=== PATIENT | female | born 1965 | race Caucasian/White ===

== ENCOUNTER 2020-01-30 14:36 | Outpatient (REF) | payer OTHER, SELFPAY ==
--- NOTE | 2020-01-30 15:15 | MR_ITS ---
EXAMINATION: MR ABDOMEN WITHOUT AND WITH CONTRAST CLINICAL INFORMATION: 1.2 cm enhancing lesion left hepatic lobe. Follow-up. COMPARISON: CT abdomen and pelvis without and with contrast 12/06/2017 TECHNIQUE: MR abdomen was performed without and with use of 5.5 mL intravenous Gadavist gadolinium contrast. Postcontrast images are performed in multiphase dynamic sequences. Imaging was performed in 3 planes. FINDINGS: LUNG BASES: The visualized lung bases are unremarkable. LIVER, GALLBLADDER, AND BILIARY TREE: The liver is normal in size and smooth in contour and normal in signal. There is no signal loss on out of phase imaging to suggest hepatic steatosis. There is a stable subcapsular lesion anterior left lobe near the intersegmental fissure measuring 1.1 cm in size. This is uniform high signal T2, low signal T1, and shows homogeneous enhancement on delayed postcontrast image suggesting a benign hemangioma. There is also a tiny cyst dome left lobe segment 2 under 1 cm. Both lesions are stable from CT 12/06/2017 consistent with benign lesions. There is no new hepatic parenchymal lesion. No intrahepatic ductal dilatation. The gallbladder is partially contracted. There is no visible stone or wall thickening. The common duct is unremarkable. PANCREAS: Normal in size and contour and signal. Pancreatic duct normal in caliber. No pancreatic parenchymal lesion or peripancreatic inflammatory changes. SPLEEN: Normal. ADRENAL GLANDS: Normal. KIDNEYS AND URETERS: The kidneys are normal in size, shape, and enhance symmetrically. No hydronephrosis. No perinephric stranding. GASTROINTESTINAL TRACT: No bowel obstruction. No ascites or fluid collection. ABDOMINAL WALL: No significant hernia is appreciated. LYMPH NODES: No lymphadenopathy. VASCULAR: Unremarkable. OSSEOUS STRUCTURES: Marrow signal normal. MR/MR abdomen wo/w con IMPRESSION: 1. Benign 1.1 cm subcapsular lesion anterior left hepatic lobe likely hemangioma and stable from CT abdomen 12/06/2017. Tiny cyst dome left lobe stable. 2. No biliary ductal dilatation. Unremarkable pancreas.
== END 2020-01-30 14:37 | disposition home or self-care (01) ==
LOC: HO.MRI 14:36
PROVIDERS: PCP Internal Medicine; Visit Provider Internal Medicine
DX: K76.9 Liver disease, unspecified (principal)
CPT/HCPCS: 74183; A9585

== ENCOUNTER 2020-02-08 16:33 | Outpatient (REF) | payer OTHER, SELFPAY ==
--- NOTE | 2020-02-08 | XR_ITS ---
EXAMINATION: XR FACIAL BONES CLINICAL INFORMATION: Contusion of other part of head. COMPARISON: None TECHNIQUE: 4 views of the facial bones were obtained. FINDINGS: No fracture of the facial bones is demonstrated. The paranasal sinuses are clear. XR/XR facial bones min 3V IMPRESSION: Unremarkable examination.
== END 2020-02-08 16:34 | disposition home or self-care (01) ==
LOC: HO.XRAY 16:33
PROVIDERS: Visit Provider Internal Medicine
DX: S00.83XA Contusion of other part of head, initial encounter (principal)
CPT/HCPCS: 70150

== ENCOUNTER 2020-09-12 09:59 | Outpatient (REF) | payer OTHER, SELFPAY ==
--- NOTE | ~2020-09-12 | US_ITS ---
EXAMINATION: ULTRASOUND PELVIS AND TRANSVAGINAL CLINICAL INFORMATION: Left lower quadrant pain. COMPARISON: Ultrasound pelvis 12/19/2019 TECHNIQUE: Transabdominal and transvaginal imaging of pelvis is performed. FINDINGS: The uterus is anteverted measuring 6.30 cm in length, 2.6 cm in AP and 3.2 cm in transverse dimension. Endometrial thickness is 0.37 cm. No focal lesion is seen. The right ovary measures 1.5 x 1.0 x 1.7 cm and volume 1.4 mL. It appears unremarkable. Previously right ovary measures 1.8 x 1.1 x 1.0 cm. The left ovary measures 1.5 x 1.0 x 1.4 cm and volume 1.0 cm. Previously it measured 2.1 x 2.2 x 1.4 cm. There are prominent vessels seen in the left adnexa. There is no free fluid in cul-de-sac. US/US pelvic and transvaginal IMPRESSION: Unremarkable uterus and ovaries except for prominent vessels in the left adnexa..
== END 2020-09-12 10:00 | disposition home or self-care (01) ==
LOC: HO.HMGCX 09:59
PROVIDERS: Visit Provider General Practice
DX: R10.32 Left lower quadrant pain (principal)
CPT/HCPCS: 76830; 76856

== ENCOUNTER 2020-10-13 15:30 | Outpatient (REF) | payer OTHER, SELFPAY ==
--- NOTE | ~2020-10-13 | XR_ITS ---
EXAMINATION: XR FOREARM, LEFT CLINICAL INFORMATION: Localized swelling, mass or lump. COMPARISON: None TECHNIQUE: AP and lateral views of the left forearm were obtained. FINDINGS: There is no visible acute fracture, dislocation or bony abnormality. There is a small lateral epicondylar enthesophyte. The soft tissues are normal. No joint effusion seen. XR/XR forearm LT 2V IMPRESSION: Suspect small lateral and coned-down enthesophytes. No acute fracture or dislocation seen. No soft tissue abnormality.
== END 2020-10-13 15:31 | disposition home or self-care (01) ==
LOC: HO.XRAY 15:30
PROVIDERS: PCP Internal Medicine; Visit Provider General Practice
DX: R22.32 Localized swelling, mass and lump, left upper limb (principal)
CPT/HCPCS: 73090

== ENCOUNTER 2020-10-17 15:17 | Outpatient (REF) | payer OTHER, SELFPAY ==
--- NOTE | ~2020-10-17 | US_ITS ---
EXAMINATION: ULTRASOUND EXTREMITY NONVASCULAR CLINICAL INFORMATION: Localized swelling, mass or lump left arm COMPARISON: Previous x-ray 10/13/2020 TECHNIQUE: Doppler color and grayscale evaluation of the soft tissues of the left forearm FINDINGS: There is a 0.9 x 0.9 x 0.4 cm complex cyst with thick echogenic wall just deep to the skin in the area of palpable abnormality. Avascular. Ultrasound appearance is nonspecific. Possible small abscess or there is history of trauma, liquefying hematoma should be considered. US/US extremity nonvascular IMPRESSION: 9 x 9 x 4 mm complex cyst seen in the left forearm in the area of palpable abnormality. Ultrasound appearance is nonspecific.
== END 2020-10-17 15:18 | disposition home or self-care (01) ==
LOC: HO.HMGCX 15:17
PROVIDERS: PCP Internal Medicine; Visit Provider General Practice
DX: R22.32 Localized swelling, mass and lump, left upper limb (principal)
CPT/HCPCS: 76882

== ENCOUNTER → 2020-11-10 13:04 | Outpatient (BNVA) | payer OTHER, SELFPAY | PROVIDERS: PCP Internal Medicine; Visit Provider Orthopaedic Surgery | DX: M79.89 Other specified soft tissue disorders (principal); M65.4 Radial styloid tenosynovitis [de Quervain] | CPT/HCPCS: 99202 ==

== ENCOUNTER 2020-12-05 08:32 | Outpatient (REF) | payer OTHER, SELFPAY | END 2020-12-05 08:33 | disposition home or self-care (01) | LOC: HO.LAB 08:32 | PROVIDERS: PCP Internal Medicine | DX: N30.10 Interstitial cystitis (chronic) without hematuria (principal) | CPT/HCPCS: 87086; 87147; 99212 ==

== ENCOUNTER 2020-12-15 10:30 | Outpatient (REF) | payer OTHER, SELFPAY ==
--- NOTE | ~2020-12-15 | XR_ITS ---
EXAMINATION: XR HAND, LEFT CLINICAL INFORMATION: Pain COMPARISON: None TECHNIQUE: PA, lateral, and oblique views of the left hand. FINDINGS: Visualized portions of the distal radius and ulna demonstrate no fracture. Carpal rows are well-maintained. No carpal, metacarpal or phalangeal fracture. Mild to moderate degenerative changes of the first carpal metacarpal joint. Minimal scattered degenerative changes of the IP joint. XR/XR hand LT min 3V IMPRESSION: Mild to moderate degenerative changes of the first carpal metacarpal joint.
== END 2020-12-15 10:31 | disposition home or self-care (01) ==
LOC: HO.HOSX 10:30
PROVIDERS: Visit Provider Orthopaedic Surgery
DX: M18.12 Unilateral primary osteoarthritis of first carpometacarpal joint, left hand (principal); M65.4 Radial styloid tenosynovitis [de Quervain]; M79.89 Other specified soft tissue disorders
CPT/HCPCS: 73130; 99212

== ENCOUNTER 2021-01-02 18:59 | Outpatient (REF) | payer OTHER, SELFPAY ==
--- NOTE | ~2021-01-02 | MR_ITS ---
EXAMINATION: MRI HAND LEFT WITHOUT CONTRAST CLINICAL INFORMATION: 55-year-old female with history of pain. Patient reports burning, pain, weakness in thumb area, and patient denies having had any surgery in the problem area. COMPARISON: Radiographs of the hand from 12/15/2020. TECHNIQUE: Noncontrast multiplanar, multisequence MR imaging examination of the left hand was performed on a high-field magnet. FINDINGS: The MRI examination of the left hand was performed at a large [id number] to include the wrist and hand within the [id number]. The muscles and tendons of the hand are normal. No evidence of flexor or extensor tendon tear or tenosynovitis. No soft tissue mass. No ganglion cyst or other soft tissue lesion is seen within the wrist. Alignment is normal at the wrist, metacarpophalangeal and interphalangeal joints. No evidence of bone erosion or periostitis. At the moderately degenerated first carpometacarpal joint, there is subarticular bone marrow edema, cystic change, osteophyte formation and small joint effusion. There is mild pericapsular soft tissue edema adjacent to the intact-appearing dorsal radioulnar ligament (image 6 of 14, series 3). A small ossicle is seen adjacent to this ligament. There is no evidence of acute fracture at the degenerated joint. The collateral ligament structures at the thumb metacarpophalangeal joint are grossly intact (images 24-26 of 28, series 6). Note that it is difficult to provide any detailed analysis of ligament structures the wrist on these images acquired at a large [id number]. Although there is thinning of the triangular fibrocartilage disc at the level of the ulnolunate articulation, no focal ligament tear is identified. The scapholunate and lunatotriquetral ligaments are grossly intact. The structures of the carpal tunnel are normal. No evidence of abnormal thickening or T2 hyperintensity of the median nerve. No carpal bone bruise, fracture or osteonecrosis. MR/MR hand LT wo con IMPRESSION: * Moderate osteoarthritis, small effusion and mild pericapsular edema of the first carpometacarpal joint. * No evidence of soft tissue mass in the hand or wrist. * No evidence of tendon tear or tenosynovitis in the hand or wrist.
== END 2021-01-02 19:00 | disposition home or self-care (01) ==
LOC: HO.MRI 18:59
PROVIDERS: Visit Provider Orthopaedic Surgery
DX: M18.12 Unilateral primary osteoarthritis of first carpometacarpal joint, left hand (principal); M79.645 Pain in left finger(s)
CPT/HCPCS: 73218

== ENCOUNTER 2021-01-05 17:12 | Outpatient (REF) | payer OTHER, SELFPAY ==
--- NOTE | ~2021-01-05 | XR_ITS ---
EXAMINATION: XR CHEST CLINICAL INFORMATION: Shortness of breath. COMPARISON: Most recent chest radiograph dated 05/21/2016. TECHNIQUE: 2 views of the chest were obtained. FINDINGS: The lungs are clear. The cardiomediastinal silhouette is normal in size. There is no pleural effusion or pneumothorax. No acute osseous abnormality. XR/XR chest 2V IMPRESSION: No acute cardiopulmonary findings.
[2021-01-05 17:27] LABS: MANUAL DIFF FLAG NO
[2021-01-05 18:05] LABS: Basophils Percent Auto 0.6 % (0-2); Eosinophils Absolute Auto 0.2 X10*3/uL (0.0-0.4); Eosinophils Percent Auto 2.1 % (0-4); Hematocrit 42.5 % (37-47); Hemoglobin 14.3 g/dl (12.0-16.0); Imm Gran Abs Auto 0.02 X10*3/uL (0.00-0.03); Imm Gran Pct Auto 0.3 % (0.0-0.4); Lymphocytes Absolute Auto 1.8 X10*3/uL (1.2-4.9); Mean Corpuscular HGB Conc 33.6 g/dl (31.0-35.0); Mean Corpuscular Hemoglobin 32.1 pg (27.0-33.0); Mean Corpuscular Volume 95.3 fL (80-98); Mean Platelet Volume 10.1 fL (9.4-12.3); Monocytes Absolute Auto 0.6 X10*3/uL (0.1-1.2); Monocytes Percent Auto 8.7 % (2-11); Neutrophils Absolute Auto 4.5 X10*3/uL (2.0-8.3); Neutrophils Percent Auto 63.3 % (45-73); Platelet Count 258 X10*3/uL (160-400); Red Blood Count 4.46 X10*6/uL (4.20-5.50); Red Cell Distribution Width 12.5 % (11.0-16.0); White Blood Count 7.2 X10*3/uL (4.8-10.8)
[2021-01-05 18:27] LABS: Anion Gap 14 (12-20); Blood Urea Nitrogen 14 mg/dL (9-16); Carbon Dioxide 29 mmol/L (22-29); Chloride 103 mmol/L (96-108); Estimated Glomerular Filt Rate > 60; Glucose Random 137 mg/dL (60-115); Potassium 4.3 mmol/L (3.3-5.1); Sodium 142 mmol/L (135-145)
[2021-01-05 18:34] LABS: D Dimer < 200 NG/ML
== END 2021-01-05 17:13 | disposition home or self-care (01) ==
LOC: HO.XRAY 17:12
PROVIDERS: PCP Internal Medicine; Visit Provider Internal Medicine
DX: R06.02 Shortness of breath (principal)
CPT/HCPCS: 36415; 71046; 80048; 85025; 85379

== ENCOUNTER 2021-01-09 08:43 | Outpatient (REF) | payer OTHER, SELFPAY ==
[2021-01-09 10:31] LABS: Glucose Fasting 88 mg/dL (60-99)
== END 2021-01-09 08:44 | disposition home or self-care (01) ==
LOC: HO.LAB 08:43
PROVIDERS: PCP Internal Medicine; Visit Provider Internal Medicine
DX: R06.02 Shortness of breath (principal)
CPT/HCPCS: 36415; 82947

== ENCOUNTER → 2021-01-27 08:33 | Outpatient (BNVA) | payer OTHER, SELFPAY | PROVIDERS: Visit Provider Orthopaedic Surgery | DX: M18.12 Unilateral primary osteoarthritis of first carpometacarpal joint, left hand (principal); M79.645 Pain in left finger(s) | CPT/HCPCS: 99212 ==

== ENCOUNTER → 2021-02-23 09:19 | Outpatient (BNVA) | payer OTHER, SELFPAY | PROVIDERS: PCP Internal Medicine; Referring Provider Internal Medicine; Visit Provider Surgery | DX: R22.9 Localized swelling, mass and lump, unspecified (principal) | CPT/HCPCS: Q3014 ==

== ENCOUNTER → 2021-03-03 12:00 | Outpatient (BNVA) | payer OTHER, SELFPAY | PROVIDERS: Visit Provider Orthopaedic Surgery | DX: M18.12 Unilateral primary osteoarthritis of first carpometacarpal joint, left hand (principal) | CPT/HCPCS: 99212 ==

== ENCOUNTER 2021-03-23 13:26 | Outpatient (REF) | payer OTHER, SELFPAY ==
--- NOTE | ~2021-03-23 | US_ITS ---
EXAMINATION: US PELVIS, LIMITED/FOLLOW UP CLINICAL INFORMATION: Question lump in perineum COMPARISON: 09/12/2020 TECHNIQUE: Targeted ultrasound of clinical area at the left outer edge of the labia majora FINDINGS: There is no solid or cystic abnormality demonstrated. No fluid collection or skin thickening. No focal lesion. US/US pelvic limited IMPRESSION: No focal lesion. No findings to suggest a Bartholin's gland cyst. MRI may be obtained as warranted clinically.
== END 2021-03-23 13:27 | disposition home or self-care (01) ==
LOC: HO.US 13:26
PROVIDERS: PCP Internal Medicine; Visit Provider Surgery
DX: M79.89 Other specified soft tissue disorders (principal)
CPT/HCPCS: 76857

== ENCOUNTER → 2021-03-30 15:47 | Outpatient (BNVA) | payer OTHER, SELFPAY | PROVIDERS: PCP Internal Medicine; Referring Provider Internal Medicine; Visit Provider Surgery | DX: R22.9 Localized swelling, mass and lump, unspecified (principal) | CPT/HCPCS: 99212 ==

== ENCOUNTER → 2021-04-07 08:39 | Outpatient (BNVA) | payer OTHER, SELFPAY | PROVIDERS: Visit Provider Orthopaedic Surgery | DX: M65.4 Radial styloid tenosynovitis [de Quervain] (principal); M18.12 Unilateral primary osteoarthritis of first carpometacarpal joint, left hand | CPT/HCPCS: 99212 ==

== ENCOUNTER 2021-04-27 05:59 | Day surgery (SDC) | payer OTHER, SELFPAY ==
--- NOTE | 2021-04-24 12:04 | HO.ANESPROP2 ---
Documented by User: Kenna William NP 04/24/21 12:05 HPI - Anesthesia Eval Consult details Narrative: 55yo F for Left Basal Joint Arthroplasty, Jorge Trapeziectomy, with Ligament Reconstruction and Tendon Interposition PMFSH Active Problems Active Problems: All Active Problems (Updated 03/30/21 @ 16:07 by Moise Conrad MD) Mass of soft tissue of left upper extremity (Acute) De Quervain's tenosynovitis, left (Acute) Arthritis of carpometacarpal (CMC) joint of left thumb (Acute) Pain of left thumb (Acute) Subcutaneous mass (Acute) Interstitial cystitis (Acute) Past Medical History Medical History (Updated 04/27/21 @ 06:51 by Ana Fuentes) Asthma Interstitial cystitis Subcutaneous mass Family History Family History Mother Colon cancer Father Bone cancer Lung cancer Brother Cancer of unknown origin Surgical History Surgical History History of colonoscopy (06/2016) History of cystoscopy History of ear surgery History of excision of mass (06/07/18) History of lumpectomy of right breast History of right breast biopsy History of tubal ligation Hx of elbow surgery Hx of rotator cuff surgery Social History Social History Patient Tobacco Use Status: Former Tobacco user Quit Date: 1991 Tobacco use type: Cigarette Advance Directives Date on File: 09/13/14 Current occupational status: disabled Current occupation: rt hand Meds Allergies Allergy/AdvReac Type Severity Reaction Status Date / Time Iodinated Contrast Media Allergy Severe (ULTRAVIST) Verified 04/27/21 06:21 [IV CONTRAST] TINGLING OF LIPS AND SWELLING LIPS AND EYES adhesive tape [ADHESIVE TAPE] Allergy Intermediate BLISTERS Verified 04/27/21 06:21 tamoxifen [TAMOXIFEN] Allergy Mild GI UPSET Verified 04/27/21 06:21 Sulfa (Sulfonamide Allergy Unknown UNKNOWN Verified 04/27/21 06:21 Antibiotics) [SULFA (SULFONAMIDE ANTIBIOTICS)] bee pollen [bee stings] Allergy Swelling Verified 04/27/21 06:21 Home Medications Medication Instructions Recorded Confirmed Last Taken Type zolpidem 5 mg tablet 5 mg PO BEDTIME PRN 11/10/20 03/30/21 Unknown History ibuprofen 800 mg tablet 800 mg PO TID 02/23/21 03/30/21 04/13/21 History Exam Exam Date and Time: April 24, 2021 1204 Pertinent Lab Results Pertinent Lab Results: Laboratory Tests 01/05/21 01/05/21 17:24 17:24 WBC 7.2 Hgb 14.3 Hct 42.5 Plt Count 258 Sodium 142 Potassium 4.3 Chloride 103 Carbon Dioxide 29 BUN 14 Creatinine 0.80 Assessment and Plan Assessment Anesthesia Assessment: Chart Reviewed Documented by User: Power Martel 04/27/21 12:13 HPI - Anesthesia Eval Consult details Narrative: 55yo F for Left Basal Joint Arthroplasty, Jorge Trapeziectomy, with Ligament Reconstruction and Tendon Interposition , palpitations , asthma , right breast CA sp chemo and radiations n 2011 , MS, flates weakness bl LE . PMFSH Past Medical History Medical History (Updated 04/27/21 @ 06:51 by Ana Fuentes) Asthma Interstitial cystitis Subcutaneous mass Family History Family History Mother Colon cancer Father Bone cancer Lung cancer Brother Cancer of unknown origin Family history of problems with anesthesia: No Surgical History Surgical History History of colonoscopy (06/2016) History of cystoscopy History of ear surgery History of excision of mass (06/07/18) History of lumpectomy of right breast History of right breast biopsy History of tubal ligation Hx of elbow surgery Hx of rotator cuff surgery History of Problems with Anesthesia: No Social History Social History Patient Tobacco Use Status: Former Tobacco user Quit Date: 1991 Tobacco use type: Cigarette Advance Directives Date on File: 09/13/14 Current occupational status: disabled Current occupation: rt hand Meds Allergies Allergy/AdvReac Type Severity Reaction Status Date / Time Iodinated Contrast Media Allergy Severe (ULTRAVIST) Verified 04/27/21 06:21 [IV CONTRAST] TINGLING OF LIPS AND SWELLING LIPS AND EYES adhesive tape [ADHESIVE TAPE] Allergy Intermediate BLISTERS Verified 04/27/21 06:21 tamoxifen [TAMOXIFEN] Allergy Mild GI UPSET Verified 04/27/21 06:21 Sulfa (Sulfonamide Allergy Unknown UNKNOWN Verified 04/27/21 06:21 Antibiotics) [SULFA (SULFONAMIDE ANTIBIOTICS)] bee pollen [bee stings] Allergy Swelling Verified 04/27/21 06:21 Home Medications Medication Instructions Recorded Confirmed Last Taken Type zolpidem 5 mg tablet 5 mg PO BEDTIME PRN 11/10/20 03/30/21 Unknown History ibuprofen 800 mg tablet 800 mg PO TID 02/23/21 03/30/21 04/13/21 History Exam Airway Mallampati Class: II TM Dist: >3cm Neck ROM: Full Partial: Upper Loose/Missing/Broken Teeth: Yes Heart: rrr Lungs: bl breath sounds Assessment and Plan Final Anesthetic Review Family History of Problems with Anesthesia: No History of Problems with Anesthesia: No NPO: Yes ASA Class: III Final Preanesthetic Review: Meds/Allgs Chart Reviewed and Anes Risks/Benef Reviewed Patient Risk: Intermediate Procedure Risk: Intermediate Anesthetic Plan Anesthetic Plan: GA Disposition: Standard PACU
[2021-04-27] VITALS (12 sets, daily range): BP systolic 116–136; BP diastolic 49–76; PULSE 73–109; RESP 15–18; TEMP 36.4–36.9; O2SAT 95–100; BMI 24.2
--- NOTE | ~2021-04-27 | FL_ITS ---
EXAMINATION: XR FLUOROSCOPY WITH IMAGES CLINICAL INFORMATION: Left basal joint arthroplasty. COMPARISON: None. TECHNIQUE: Fluoroscopy performed by Dr. Prosper Alvarenga. Fluoroscopy time: 10.3 seconds DAP: 5508.2 mGycm2 Images: 2 FINDINGS: There is partial amputation of proximal first metatarsal with 2 pins stabilizing the first carpometacarpal joint. Fluoroscopy was provided to Dr. Prosper Alvarenga during the exam FL/FL guidance in OR IMPRESSION: First carpometacarpal joint arthroplasty with 2 pins stabilizing the joint.
[2021-04-27] MEDS: Lactated Ringers 1,000 ML 100 ML IVCONT (07:44)
--- NOTE | 2021-04-27 08:05 | MHC.SHP ---
Pre-Procedural Eval Section A Date of Service: 04/27/21 The patient is an INPATIENT: No Changes since office visit: No Cold of Flu in the past 2 weeks, No New Medical Problems, No Changes in Medication and No Patient answered all questions The History & Physical has been completed within 30 days and I have reviewed it.: Yes Section B Chief Complaint: Osteoarthritis Allergies: Allergies Allergy/AdvReac Type Severity Reaction Status Date / Time Iodinated Contrast Media Allergy Severe (ULTRAVIST) Verified 04/27/21 06:21 [IV CONTRAST] TINGLING OF LIPS AND SWELLING LIPS AND EYES adhesive tape [ADHESIVE TAPE] Allergy Intermediate BLISTERS Verified 04/27/21 06:21 tamoxifen [TAMOXIFEN] Allergy Mild GI UPSET Verified 04/27/21 06:21 Sulfa (Sulfonamide Allergy Unknown UNKNOWN Verified 04/27/21 06:21 Antibiotics) [SULFA (SULFONAMIDE ANTIBIOTICS)] bee pollen [bee stings] Allergy Swelling Verified 04/27/21 06:21 Plan I have reviewed the history and physical and performed a pertinent physical examination on my patient. No changes have occurred unless specified.
--- NOTE | 2021-04-27 08:06 | W.PM.OPN ---
Operative Note Operative Note Date of Service: 04/27/21 Narrative: Operative Note Narrative: Preop diagnosis: 1. Left basal joint osteoarthritis Postop diagnosis: Same Procedure: 1. left basal joint arthroplasty with reji trapezii ectomy and ligament reconstruction tendon interposition with a slip of APL tendon Surgeon: Colette Cheng MD Anesthesia: General plus regional block Findings: left basal joint osteoarthritis Implants: 0.045 K-wires x2 Tourniquet time: 65 minutes EBL: 5.0 ml Specimen: None Drains: None Complications: None Disposition: Brought to the recovery room in stable condition Plan: Follow-up in 10-14 days for wound check, suture removal and to postop radiographs Place into a short-arm thumb spica cast. Anticipate K-wire removal at 4-5 weeks postop with same-day appointment for OT hand therapy for a custom thermoplastic hand based thumb spica splint and hand therapy Indications: The patient is 55 years old with left basal joint osteoarthritis. The risks and benefits of operative treatment, including but not limited to risk of damage to blood vessels, nerves, tendons, infection, recurrence, persistent pain or numbness, incomplete resolution of preoperative symptoms, or need for further surgery were discussed with the patient and they wished to proceed with surgery. Procedure: Once consent was obtained patient was brought back to the operating suite and placed in the operating table in a supine position. . Perioperative antibiotics and anesthesia were administered by the anesthesia team. A tourniquet was applied to the proximal aspect of the left upper extremity and the limb was prepped and draped in a standard surgical fashion. The limb was elevated exsanguinated with Esmarch bandage and the tourniquet inflated to 250 mm of mercury for a total tourniquet time of 65 minutes. A 4 cm longitudinal incision was made over the dorsal aspect of the basal joint of the left thumb extending proximally over the 1st dorsal compartment. The incision was made through the skin to the subcutaneous tissues using a 15. Blade. I dissected down to the level of the abductor pollicis longus and extensor problems this brevis tendons with care being taken to protect the branches of the superficial radial nerve. The basal joint was entered through the interval between the APL and EPB tendons, and the base of the 1st metacarpal and the distal aspect of the trapezium were exposed. Two baby Shy retractors were placed around the base of the 1st metacarpal and a bone saw was used to make a transverse cut through the base of the 1st metacarpal removing sliver of bone. The distal aspect of the trapezium was then similarly mobilized, 2 baby Shy retractors placed, and the distal half of the trapezium removed after a transverse cut was made using a small bone saw and a rongeur. The FCR tendon was seen passing through the floor of the interval. At this point my attention was turned to the 1st dorsal compartment. It was exposed over the radial styloid. A slip of the abductor pollicis longus tendon was selected and cut proximally and withdrawn back to the interval and its attachment at the base of the 1st metacarpal. It was then secured to the base of the interval and the FCR tendon using some 3-0 Ethibond suture. An anchovy was then created from the remaining slip of APL tendon and placed into the interval. It was secured using 3-0 Ethibond suture material. Two 0.045 K-wires were then placed from distal to proximal across the interval maintaining the space in the interval. Once satisfied with their position on fluoroscopic images they were cut, bent and had pin caps applied. At this point the wound was again irrigated with normal saline. The interval was closed using 3-0 Ethibond and 4-0 Vicryl suture. The tourniquet was then deflated and hemostasis obtained with a brief period of local pressure and bipolar electrocautery. The wound was again copiously irrigated with normal saline. The subcutaneous layer was closed with 4-0 Vicryl suture, and the skin edges were reapproximated with 5-0 Prolene suture. The wound was infiltrated with some 1% lidocaine with epinephrine for postop pain control and a sterile dressing and thumb spica splint were applied. The patient appears to have tolerated the procedure well and with no complications. All digits were well vascularized at the conclusion of the case.
[2021-04-27] MEDS: Acetaminophen 325 MG TABLET 650 MG PO (10:29)
[2021-04-27] MEDS: oxyCODONE HCl Immed Release 5 MG TABLET PO (10:29)
[2021-04-27] MEDS: fentaNYL citrate/PF 100 MCG/2 ML VIAL 25 MCG IVPUSH ×4 (10:29→10:49)
== END 2021-04-27 11:40 | disposition home or self-care (01) ==
PROVIDERS: PCP Internal Medicine; Visit Provider Orthopaedic Surgery
PROC: (CPT 25447; principal; 2021-04-27 07:30)
DX: M18.12 Unilateral primary osteoarthritis of first carpometacarpal joint, left hand (principal); M65.4 Radial styloid tenosynovitis [de Quervain]; J45.909 Unspecified asthma, uncomplicated; Z87.891 Personal history of nicotine dependence; Z91.041 Radiographic dye allergy status; Z88.2 Allergy status to sulfonamides; Z88.8 Allergy status to other drugs, medicaments and biological substances
CPT/HCPCS: 25447; J0690; J1100; J2250; J2405; J3010

== ENCOUNTER → 2021-04-30 13:06 | Outpatient (BNVA) | payer OTHER, SELFPAY | PROVIDERS: PCP Internal Medicine; Visit Provider Physician Assistant | DX: Z47.89 Encounter for other orthopedic aftercare (principal); M79.645 Pain in left finger(s); M65.4 Radial styloid tenosynovitis [de Quervain] | CPT/HCPCS: 99212 ==

== ENCOUNTER 2021-05-12 08:52 | Outpatient (REF) | payer OTHER, SELFPAY ==
--- NOTE | ~2021-05-12 | XR_ITS ---
EXAMINATION: XR HAND, LEFT CLINICAL INFORMATION: Left hand pain. COMPARISON: 12/15/2020 TECHNIQUE: PA, lateral, and oblique views of the left hand. FINDINGS: Postsurgical changes of 1st CMC arthroplasty and K wire fixation are noted. Soft tissues are swollen in this region. No acute fractures. Alignment appears appropriate. Bone mineralization is normal. XR/XR hand LT min 3V IMPRESSION: Appropriate alignment status post 1st CMC arthroplasty. No acute findings.
== END 2021-05-12 08:53 | disposition home or self-care (01) ==
LOC: HO.HOSX 08:52
PROVIDERS: Visit Provider Orthopaedic Surgery
DX: M18.12 Unilateral primary osteoarthritis of first carpometacarpal joint, left hand (principal)
CPT/HCPCS: 73130; 99212

== ENCOUNTER → 2021-05-13 14:12 | Outpatient (BNVA) | payer OTHER, SELFPAY | PROVIDERS: Visit Provider Orthopaedic Surgery | DX: M18.12 Unilateral primary osteoarthritis of first carpometacarpal joint, left hand (principal) | CPT/HCPCS: 99212 ==

== ENCOUNTER → 2021-05-26 12:07 | Outpatient (BNVA) | payer OTHER, SELFPAY | PROVIDERS: PCP Internal Medicine; Visit Provider Orthopaedic Surgery | DX: Z45.89 Encounter for adjustment and management of other implanted devices (principal); M18.12 Unilateral primary osteoarthritis of first carpometacarpal joint, left hand; Z96.692 Finger-joint replacement of left hand | CPT/HCPCS: 99212 ==

== ENCOUNTER → 2021-07-15 14:25 | Outpatient (BNVA) | payer OTHER, SELFPAY | PROVIDERS: PCP Internal Medicine; Visit Provider Orthopaedic Surgery | DX: Z47.89 Encounter for other orthopedic aftercare (principal); G56.02 Carpal tunnel syndrome, left upper limb | CPT/HCPCS: 99212 ==

== ENCOUNTER 2021-08-12 15:00 | Outpatient (RCR) | payer OTHER, SELFPAY ==
--- NOTE | 2021-05-26 16:21 | MHC.OT.OEV ---
[address] [phone] F: [phone] Occupational Therapy Evaluation Diagnosis: Left Basal joint Arthroplasty Date of Onset: 04/27/21 Date of Surgery: 04/27/21 Attending Provider: Colette Cheng MD Prescribed Treatment: Eval . Hand based thumb spica Follow Up Appointment: History of Current Condition: Pt reports left thumb trauma years ago with pain not improved with conservative treatment 04/27/21 under went LRTI , XR 05/12/21 showed appropriate alignment . Today pins pulled and pt in forearm based thumb spica secured with coban Significant Medical History: Adhesive tape allergy Right breast lumpectomy and 10 LN biopsy 2011.. radiation , chemo Right RTC repair OA hands, feet, back, right hip MS dx 2009 Precautions/Contraindications: No thumb op beyond index No heavy pinching or gripping against thumb until 3 mo po Allergy to adhesive tape Patient Goals: Use of left hand Hand Dominance: Mixed Observations: Wearing a forearm based thumb spica cast , open on dorsal aspect. QuickDASH Score: 81 pts Prior Level of Function and Occupation Self Care, Employment, Leisure: Mild to mod difficulty with daily activities due to sx with MS and side effects from chemotherapy Sleep meds since chemo Drives to visit with family Dances in house Walks Living Situation, Family and/or Social Support: Lives alone. Has a small dog Family close by , busy with work and children. One friend she can call Current Level of Function and Occupation Self Care, Employment, Leisure: As above and daily pain in the cast On disability for greater than 10 years due to multiple medical issues Sleep: Inc difficulty falling asleep Driving: Unable at this time Vision: Wears glasses Balance: Pain Assessment Pain Score: 8 Pain Scale Used: Numeric (0 - 10) Pain Location and Description: 8/10 left radial hand and wrist > ulnar syloid Aggravating Factors: Cast pressure. Left hand and wrist motion Alleviating Factors: Skin and Soft Tissue Assessment Skin and Soft Tissue: Swelling Comments: Left thumb pin sites covered, radial distal forearm scar Left forearm ms atrophy Wrist and digits stiff Nerve assessment Ulnar Nerve: Not Tested Median Nerve: Not Tested Radial Nerve: Not Tested Comments: Sensory Assessment Temperature: Light Touch: WFL Proprioception: Vibration: Comments: Edema Assessment Upper Extremity: Lower Extremity: Comments: Mild left hand edema Dexterity Assessment Dexterity: Left Impaired Comments: Deferred testing. Special Tests Comments: AROM(PROM) Strength Cervical Cervical Flexion: Cervical Extension: Cervical Lateral Flexion: Cervical Rotation: Comments: Shoulder Flexion: Extension: Abduction: Internal Rotation: External Rotation: Comments: Flexion: Extension: Abduction: Internal Rotation: External Rotation: Comments: Elbow Flexion: Extension: Pronation: 80 deg Supination: neutral Comments: Flexion: Extension: Pronation: Supination: Comments: NT Wrist Flexion: neutral Extension: 10 Ulnar Deviation: neutral Radial Deviation: neutral Comments: Flexion: Extension: Ulnar Deviation: Radial Deviation: Comments: NT Thumb Thumb CMC Flexion: Thumb MCP Flexion: Thumb IP Flexion: Radial Abduction: Palmar Abduction: 30 deg [place] ([place] 0-10): 0 Comments: Digits Index MCP: PIP: DIP: Long MCP: PIP: DIP: Ring MCP: PIP: DIP: Small MCP: PIP: DIP: Comments: Digits stiff. 2.5 cm to palm. Gross Grasp: Lateral Pinch: Two-Point Pinch: Three-Jaw Celestine: Comments: Deferred Patient Education Primary Language: Honduran Physical Fitness Trainer Required: No Current Knowledge: Minimal, needs reinforcement Teaching Method: Demonstration Verbal Education Needs Identified on Evaluation: ADL's Disease Information Exercise How did patient/family demonstrate learning? Patient demonstrates Patient verbalizes Barriers to Learning: Other Readiness for Learning: Accepting Who was educated? Patient Comments: Pt using medical transportation Plan of Care Assessment: Pt is 4 wks s/p left basal jt arthroplasty due to pain not improved with conservative treatment Pt presents with a very stiff wrist hand digits after having her pins pulled jt prior to this appointment Pt is previously with limitations and disability due to a complicated medical history. She lives alone with some assist from family and from medical transportation service She will benefit from OT to progress ROM, strengthening and functional use of her non dominant left hand per LRTI guidelines STG Duration: 4 wks Short Term Goals: Demo indep with scar management Demo indep with wrist and hand ROM Demo knowledge of jt repair precautions with ther ex and light activities Functional dexterity test in less than 40 seconds Light ADL with left hand use of orthosis LTG Duration: 8 wls [facility] Goals: Painfree left wrist and hand AROM Thumb abd to 45 deg Functional dexterity test in less than 30 sec Tolerate partial wt bearing on left hand Left drop forger helper to >15 lb Left pinch with ADL Quick DASH < 20 pts Indep with HEP, exercise progression and splint weaning. Frequency and Duration: The patient will be seen 2x wk x 8 wks Treatment Plan: Therapeutic Exercise Therapeutic Activity Home Exercise Program Splinting Patient Education ADL Training Paraffin Fluidotherapy MHP Soft Tissue Mobilization Electronically Signed By: Rachel Clark OT CHT CLT Reviewed/agree with student documentation: N/A Therapist: Please sign and return to therapist, Thank you for your referral.
--- NOTE | 2021-07-13 16:07 | MHC.OT.OR ---
Occupational Therapy Outpt Reeval Start: 05/26/21 13:20 Freq: Status: Active Protocol: Activity Type Activity Date Activity User E-Sign Co-Sign Detail Recorded Client Recorded Date Recorded By Document 07/13/21 16:04 ALEX [id number] 07/13/21 16:06 ALEX 07/13/21 16:04 Outpatient Occupational Therapy Re- evaluation [Treatment History] -Attending Provider Colette Cheng MD -Diagnosis Left Basal joint Arthroplasty -Date of Surgery 04/27/21 -Evaluation Date 05/26/21 -Treatments to Date 11 -Cancellations to Date 0 [Subjective] -Subjective I have a squishy ball I' m using but it doesn't help Sometimes it feels hot I'm using it for everything and it just feels stuck. My fingers don't even feel right . Everything feels slimy Not getting pins and needles at night. sometimes during the day, it depends -Pain Scale(0-10) 5 -Pain Location L radial hand and wrist [Objective] -Tests and Measures Wrist ext 50 deg, flexion 55 deg Thumb radial abd 0/0 (15) deg, joseph abd 0/15 deg. MP 0/5 deg, IP 0/ 30 deg Index PIP 0/95 deg, DIP 0/50 deg [Assessment] -Status Not Progressing -Assessment Pt is 10 wks post op right hemitrapeziecto my and APL LRTT . One wk lapse in treatment due to an unrelated medical issue No significant change in active thumb radial abd and con't limited joseph abd. Tendency to adduct 1st MC with IP jt extension. Continued slow improving digit 2-5 flexion to DPC. Pt reports trying to use her hand with light ADL but her fingers aren't cooperating. She reports a good improvement in hand CTS sx with intermittant use of a wrist gutter splint. Her hand color, edema ,skin texture are significantly improved and improving exercise and activity tolerance over the past few weeks. Pt is motivated and active with her HEP ( pt modified ) and is anxious to improve her thumb abduction . [Plan of Care] -Short Term Goals Demo indep with scar management MET Demo indep with wrist and hand ROM MET Demo knowledge of jt repair precautions with ther ex and light activities MET Functional dexterity test in less than 40 seconds Light ADL with left hand use of orthosis MET -Detention Goals Painfree left wrist and hand AROM Thumb abd to 45 deg Functional dexterity test in less than 30 sec Tolerate partial wt bearing on left hand Left archivist nonprofit foundation to > 15 lb Left pinch with ADL Quick DASH < 20 pts Indep with HEP, exercise progression and splint weaning . -Frequency and Duration of Visits 2x wk x 4 wks -Treatment Plan Therapeutic Exercise, Therapeutic Activity,Home Exercise Program, Splinting, Patient Education,ADL Training, Paraffin, Fluidotherapy, MHP,Soft Tissue Mobilization -Electronically signed by: Rachel Clark OT CHT CLT -Reviewed/agreed with student N/A documentation
--- NOTE | 2021-08-12 16:37 | MHC.OT.DC ---
[address] [phone] F: [phone] Occupational Therapy Discharge Note Provider: Colette Cheng MD Diagnosis: Left Basal joint Arthroplasty Date of Surgery: 04/27/21 Date of Evaluation: 05/26/21 Date of Discharge: 08/12/21 Treatments to Date: 17 Cancellations to Date: 0 No Shows to Date: 2 Discharge Status: Recommend MD Follow-up Discharge Summary: Pt not improving in complaint of left thumb pain ,thumb radial or joseph abd. There is a slight inc in joseph abd with NMES vs AROM or place and hold. Pt is with very limited use of her left hand . Light dexterity only. She is moderately functional with Functional Dexterity Test and reports being independent with some modifications in all areas, included wearing her CMC orthosis with homemaking and driving.. She has been unable to progress gentle strengthening or functional activities due to a complaint of inc pain and inc in anxiety She is scheduled for a CTR with Dr. Cheng tomorrow Recommending pt follow up with Dr. Cheng. Electronically Signed By: Rachel Clark OT CHT CLT Reviewed/agree with student documentation: N/A Therapist: Please Sign and return to therapist, thank you for your referral.
== END 2021-08-12 16:37 | disposition home or self-care (01) ==
LOC: HO.OT 15:00
PROVIDERS: PCP Internal Medicine; Visit Provider Orthopaedic Surgery
DX: M18.12 Unilateral primary osteoarthritis of first carpometacarpal joint, left hand (principal)
CPT/HCPCS: 29125; 29130; 97014; 97033; 97110; 97140; 97166; 97530; 97760

== ENCOUNTER 2021-08-13 06:01 | Day surgery (SDC) | payer OTHER, SELFPAY ==
[2021-08-06 19:12] VITALS: BMI 23.8
--- NOTE | 2021-08-12 08:43 | HO.ANESPROP2 ---
Documented by User: Kenna William NP 08/12/21 08:45 HPI - Anesthesia Eval Consult details Narrative: 56yo F for Left Carpal Tunnel Release s/p Left basal joint arthroplasty 04/2021 with GA-LMA 3 MS - no rx listed PMFSH Active Problems Active Problems: All Active Problems (Updated 08/06/21 @ 19:10 by Ghada Echevarria RN) Mass of soft tissue of left upper extremity (Acute) De Quervain's tenosynovitis, left (Acute) Arthritis of carpometacarpal (CMC) joint of left thumb (Acute) Pain of left thumb (Acute) Carpal tunnel syndrome of left wrist (Acute) Subcutaneous mass (Acute) Interstitial cystitis (Acute) Past Medical History Medical History (Updated 08/06/21 @ 19:10 by Ghada Echevarria RN) Asthma Dyspnea on exertion History of right breast cancer Hypothyroid Interstitial cystitis Multiple sclerosis Palpitations Seizure Subcutaneous mass Family History Family History Mother Colon cancer Father Bone cancer Lung cancer Brother Cancer of unknown origin Family history of problems with anesthesia: No Surgical History Surgical History History of colonoscopy (06/2016) History of cystoscopy History of ear surgery History of excision of mass (06/07/18) History of lumpectomy of right breast History of right breast biopsy History of tubal ligation Hx of elbow surgery Hx of rotator cuff surgery History of Problems with Anesthesia: No Social History Social History Patient Tobacco Use Status: Former Tobacco user Quit Date: 1991 Tobacco use type: Cigarette Use of substances other than those prescribed or required for medical reasons: No Are you DNR?: No Advance Directives: No Advance Directives Information Provided: No Advance Directives on File: No Advance Directives Date on File: 09/13/14 Recently lost weight without trying: No Nutrition Risks: No Nutritional Risk Patient : No Current occupational status: disabled Current occupation: rt hand Meds Allergies Allergy/AdvReac Type Severity Reaction Status Date / Time Iodinated Contrast Media Allergy Severe (ULTRAVIST) Verified 05/12/21 09:05 [IV CONTRAST] TINGLING OF LIPS AND SWELLING LIPS AND EYES adhesive tape [ADHESIVE TAPE] Allergy Intermediate BLISTERS Verified 05/12/21 09:05 tamoxifen [TAMOXIFEN] Allergy Mild GI UPSET Verified 05/12/21 09:05 Sulfa (Sulfonamide Allergy Unknown UNKNOWN Verified 05/12/21 09:05 Antibiotics) [SULFA (SULFONAMIDE ANTIBIOTICS)] bee pollen [bee stings] Allergy Swelling Verified 05/12/21 09:05 Home Medications Medication Instructions Recorded Confirmed Last Taken Type zolpidem 5 mg tablet 5 mg PO BEDTIME PRN 11/10/20 08/06/21 Unknown History Exam Exam Date and Time: August 12, 2021 0843 Height,Weight and Vital Signs: Height 4 ft 11 in Weight 53.524 kg Pertinent Lab Results Pertinent Lab Results: Laboratory Tests 01/05/21 01/05/21 17:24 17:24 WBC 7.2 Hgb 14.3 Hct 42.5 Plt Count 258 Sodium 142 Potassium 4.3 Chloride 103 Carbon Dioxide 29 BUN 14 Creatinine 0.80 Assessment and Plan Assessment Anesthesia Assessment: Chart Reviewed Final Anesthetic Review Family History of Problems with Anesthesia: No History of Problems with Anesthesia: No Documented by User: Anthony Alfaro MD 08/13/21 07:13 [facility] Past Medical History Medical History (Updated 08/06/21 @ 19:10 by Ghada Echevarria RN) Asthma Dyspnea on exertion History of right breast cancer Hypothyroid Interstitial cystitis Multiple sclerosis Palpitations Seizure Subcutaneous mass Family History Family History Mother Colon cancer Father Bone cancer Lung cancer Brother Cancer of unknown origin Surgical History Surgical History History of colonoscopy (06/2016) History of cystoscopy History of ear surgery History of excision of mass (06/07/18) History of lumpectomy of right breast History of right breast biopsy History of tubal ligation Hx of elbow surgery Hx of rotator cuff surgery Social History Social History Patient Tobacco Use Status: Former Tobacco user Quit Date: 1991 Tobacco use type: Cigarette Use of substances other than those prescribed or required for medical reasons: No Are you DNR?: No Advance Directives: No Advance Directives Information Provided: No Advance Directives on File: No Advance Directives Date on File: 09/13/14 Recently lost weight without trying: No Nutrition Risks: No Nutritional Risk Patient : No Current occupational status: disabled Current occupation: rt hand Meds Allergies Allergy/AdvReac Type Severity Reaction Status Date / Time Iodinated Contrast Media Allergy Severe (ULTRAVIST) Verified 05/12/21 09:05 [IV CONTRAST] TINGLING OF LIPS AND SWELLING LIPS AND EYES adhesive tape [ADHESIVE TAPE] Allergy Intermediate BLISTERS Verified 05/12/21 09:05 tamoxifen [TAMOXIFEN] Allergy Mild GI UPSET Verified 05/12/21 09:05 Sulfa (Sulfonamide Allergy Unknown UNKNOWN Verified 05/12/21 09:05 Antibiotics) [SULFA (SULFONAMIDE ANTIBIOTICS)] bee pollen [bee stings] Allergy Swelling Verified 05/12/21 09:05 Home Medications Medication Instructions Recorded Confirmed Last Taken Type zolpidem 5 mg tablet 5 mg PO BEDTIME PRN 11/10/20 08/06/21 Unknown History Exam Airway Mallampati Class: II TM Dist: >3cm Partial: Upper Assessment and Plan Assessment Anesthesia Assessment: Anesthesia Plan Discussed Final Anesthetic Review NPO: Yes ASA Class: II Final Preanesthetic Review: No Changes in Pt Med Stat, Meds/Allgs Chart Reviewed, Consent Obtained/Reviewed and Anes Risks/Benef Reviewed Patient Risk: Low Procedure Risk: Low Anesthetic Plan Anesthetic Plan: GA Disposition: Standard PACU
[2021-08-13] VITALS (7 sets, daily range): BP systolic 125–155; BP diastolic 74–93; PULSE 60–86; RESP 14–16; TEMP 36.3–36.6; O2SAT 95–99
[2021-08-13] MEDS: Lactated Ringers 1,000 ML 100 ML IVCONT (06:53)
--- NOTE | 2021-08-13 07:39 | MHC.SHP ---
Pre-Procedural Eval Section A Date of Service: 08/13/21 The patient is an INPATIENT: No Changes since office visit: No Cold of Flu in the past 2 weeks, No New Medical Problems, No Changes in Medication and No Patient answered all questions The History & Physical has been completed within 30 days and I have reviewed it.: Yes Section B Chief Complaint: Carpal tunnel syndrome, left upper limb Allergies: Allergies Allergy/AdvReac Type Severity Reaction Status Date / Time Iodinated Contrast Media Allergy Severe (ULTRAVIST) Verified 05/12/21 09:05 [IV CONTRAST] TINGLING OF LIPS AND SWELLING LIPS AND EYES adhesive tape [ADHESIVE TAPE] Allergy Intermediate BLISTERS Verified 05/12/21 09:05 tamoxifen [TAMOXIFEN] Allergy Mild GI UPSET Verified 05/12/21 09:05 Sulfa (Sulfonamide Allergy Unknown UNKNOWN Verified 05/12/21 09:05 Antibiotics) [SULFA (SULFONAMIDE ANTIBIOTICS)] bee pollen [bee stings] Allergy Swelling Verified 05/12/21 09:05 Plan I have reviewed the history and physical and performed a pertinent physical examination on my patient. No changes have occurred unless specified.
--- NOTE | 2021-08-13 07:39 | W.PM.OPN ---
Operative Note Operative Note Date of Service: 08/13/21 Narrative: Preop diagnosis: 1. left Carpal tunnel syndrome Postop diagnosis: same Procedure: 1. left Carpal tunnel release Surgeon: Colette Cheng MD Anesthesia: local block using 1% lidocaine with epinephrine Findings: Thickened transverse carpal ligament. EBL: Less than 5 mL Specimens: None Complications: None Disposition: Brought to recovery room in stable condition Plan: Follow-up for 10-14 days for wound check and suture removal Indications: The patient is 56 years old, with left carpal tunnel syndrome that has been unresponsive to nonoperative management. The risks and benefits of operative treatment including but not limited to risk of damage to blood vessels, nerves, tendons, infection, persistent pain, persistent symptoms, or possible need for additional surgery were discussed with the patient and the patient wishes to proceed with surgery. Procedure: Once consent was obtained a local block was performed using a combination of 1% lidocaine with epinephrine. The patient was then brought back to the operating suite and placed on the operative table in supine position. A tourniquet was applied to the proximal aspect of the left upper extremity and the limb was prepped and draped in a standard surgical fashion. Once assured that we had a good block, a 1.5 cm longitudinal incision was made centered over the carpal tunnel. The incision was made through the skin to the subcutaneous tissues using a #15 blade. Dissection was made down to the level of the transverse carpal ligament with care being taken to protect the palmar cutaneous nerve. Once the transverse carpal ligament was clearly visualized, a longitudinal incision was made in the transverse carpal ligament 1st using a #15 blade, then using tenotomy scissors under direct visualization. Care was taken to look for and protect the motor branch of the median nerve when seen in this area. Once satisfied with our carpal tunnel release the wound was copiously irrigated with normal saline and hemostasis was obtained with a brief period of local pressure. The skin edges were reapproximated with some 5.0 nylon suture material and a sterile dressing was applied. The patient appears to have tolerated the procedure well and with no complications. All digits were well vascularized at the conclusion of the case.
== END 2021-08-13 09:40 | disposition home or self-care (01) ==
PROVIDERS: PCP Internal Medicine; Visit Provider Orthopaedic Surgery
PROC: (CPT 64721; principal; 2021-08-13 07:30)
DX: G56.02 Carpal tunnel syndrome, left upper limb (principal); R20.0 Anesthesia of skin; Z98.890 Other specified postprocedural states; G35 Multiple sclerosis; R56.9 Unspecified convulsions; J45.909 Unspecified asthma, uncomplicated; Z79.899 Other long term (current) drug therapy; Z85.3 Personal history of malignant neoplasm of breast; Z91.041 Radiographic dye allergy status; Z88.2 Allergy status to sulfonamides; Z88.8 Allergy status to other drugs, medicaments and biological substances; Z87.891 Personal history of nicotine dependence
CPT/HCPCS: 64721; J0690; J1100; J2250; J2405; J3010

== ENCOUNTER → 2021-08-25 11:12 | Outpatient (BNVA) | payer OTHER, SELFPAY | PROVIDERS: PCP Internal Medicine; Visit Provider Orthopaedic Surgery | DX: Z48.811 Encounter for surgical aftercare following surgery on the nervous system (principal); Z47.89 Encounter for other orthopedic aftercare | CPT/HCPCS: 99212 ==

== ENCOUNTER → 2021-10-13 15:40 | Outpatient (BNVA) | payer OTHER, SELFPAY | PROVIDERS: PCP Internal Medicine; Visit Provider Orthopaedic Surgery | DX: M18.12 Unilateral primary osteoarthritis of first carpometacarpal joint, left hand (principal); G56.02 Carpal tunnel syndrome, left upper limb; M25.642 Stiffness of left hand, not elsewhere classified; Z98.890 Other specified postprocedural states | CPT/HCPCS: 99212 ==

== ENCOUNTER 2021-12-22 13:30 | Outpatient (RCR) | payer OTHER, SELFPAY ==
--- NOTE | 2021-12-23 16:12 | MHC.OT.DC ---
[address] [phone] F: [phone] Occupational Therapy Discharge Note Provider: Colette Cheng Diagnosis: Stiff left hand s/p left CMC arthroplasty and CTR Date of Surgery: 08/13/21 Date of Evaluation: 09/22/21 Date of Discharge: 12/22/21 Treatments to Date: 10 Cancellations to Date: No Shows to Date: Discharge Status: Independent with HEP Patient Elected to Stop Recommend MD Follow-up Discharge Summary: CTS sx resolved. Pt is independent with wrist and hand strengthening. Limited thumb AROM improved with stabilization provided at the CMCj . Thumb MPj extensor contraction unchanged. Plateau in improvement .Referred pt back to Dr. Cheng. Electronically Signed By: Rachel Clark OT CHt CLT Reviewed/agree with student documentation: N/A Therapist: Please Sign and return to therapist, thank you for your referral.
== END 2021-12-23 16:12 | disposition home or self-care (01) ==
LOC: HO.OT 13:30
PROVIDERS: PCP Internal Medicine; Visit Provider Orthopaedic Surgery
DX: M25.642 Stiffness of left hand, not elsewhere classified (principal)
CPT/HCPCS: 97035; 97110; 97166; 97167; 97530; 97760

== ENCOUNTER 2022-01-22 15:10 | Outpatient (REF) | payer OTHER, SELFPAY ==
--- NOTE | ~2022-01-22 | XR_ITS ---
EXAMINATION: XR CHEST CLINICAL INFORMATION: Dyspnea. Palpitations. COMPARISON: Previous chest x-ray most recent January 2021 TECHNIQUE: 2 views of the chest were obtained. FINDINGS: The cardiac and mediastinal contours are stable. The lungs are clear. No pleural effusion or pneumothorax. Degenerative changes of the thoracic spine. There are surgical clips in the right axilla. XR/XR chest 2V IMPRESSION: No evidence for acute disease in the chest.
== END 2022-01-22 15:11 | disposition home or self-care (01) ==
LOC: HO.XRAY 15:10
PROVIDERS: PCP Internal Medicine; Visit Provider Internal Medicine
DX: R00.2 Palpitations (principal); R06.00 Dyspnea, unspecified
CPT/HCPCS: 71046

== ENCOUNTER 2022-02-12 09:36 | Outpatient (REF) | payer OTHER, SELFPAY ==
[2022-02-12 17:09] LABS: Urine Cytology See Pathology rpt
== END 2022-02-12 09:37 | disposition home or self-care (01) ==
LOC: HO.LAB 09:36
PROVIDERS: PCP Internal Medicine; Visit Provider Urology
DX: R31.29 Other microscopic hematuria (principal); N30.10 Interstitial cystitis (chronic) without hematuria
CPT/HCPCS: 88112; 99212

== ENCOUNTER → 2022-02-15 12:49 | Outpatient (REF) | payer OTHER, SELFPAY ==
--- NOTE | 2022-02-15 12:54 | CA_ITS ---
Transthoracic Echocardiogram Patient (Last, First, Middle): Lakisha Hearn A Gender: Female Date of : 1965 Age: 56 Procedure Date: 02/15/2022 Procedure Type: Transthoracic Echocardiogram Location: OP Height: 149.86 cm Weight: 54.43 kg BSA: 1.48 m2 Heart Rate: 58 bpm BP: 105 / 70 mmHg Unloader Operator: MASON Referring MD: Jimmy Boo MD Battery Hand: Manjit Gupta MD Symptoms: R00.2 PALPITATIONS DYSPNEA R06.00 Study Quality: Fair/Contrast ECG Rhythm: Bradycardia Conclusions: - Essentially normal study Findings Procedure Information Contrast agent, definity, is being given per protocol without apparent complications. Left Ventricle Normal left ventricular size, thickness, and systolic function. The visually estimated ejection fraction is between 60-65%. Spectral Doppler is indicative of an impaired relaxation filling pattern. Right Ventricle Normal right ventricular cavity size and systolic function. Atria The left atrium is normal in size. There is lipomatous hypertrophy of the interatrial septum. There is no evidence of interatrial shunt. The right atrium is normal in size. Aortic Valve The aortic valve structure and function is likely normal. There is no aortic valve stenosis. There is no aortic valve regurgitation. Mitral Valve Normal mitral valve structure and function. There is trace mitral valve regurgitation. There is no mitral valve stenosis. Pulmonic Valve The pulmonic valve was not well visualized. Tricuspid Valve Likely normal tricuspid valve structure and function. There is trace tricuspid valve regurgitation. The right ventricular systolic pressure is normal. The right ventricular systolic pressure is 13 mmHg. Normal right atrial pressure. There is no evidence of pulmonary hypertension. Great Vessels All visible segments of the aorta are normal in size. The pulmonary artery was not well visualized. Venous The inferior vena cava is normal in size and collapses greater than 50% with inspiration. Pericardium/Pleural There is no evidence of pericardial effusion. Prior Study Comparison No significant change compared to prior study dated: 06/12/2018. Measurements 2D Linear Measurements IVSd: 0.79 0.6-0.9/0.6-1.0 cm LVIDd: 4.15 3.9-5.3/4.2-5.9 cm LVIDd Index: 2.80 2.4-3.2/2.2-3.1 cm/m2 LVIDs: 2.68 2.0-3.6 cm LVPWd: 0.89 0.7-1.1 cm LA Diam: 3.00 2.7-3.8/3.0-4.0 cm LAIDs Index: 2.03 1.5-2.3 cm/m2 LV Mass: 131.43 67-162/88-224 g LV Mass Index: 88.80 43-95/49-115 g/m2 LVOT Diam: 1.80 3.0+(-)1.3 cm 2D Systolic Function EF 4C: 71.20 >55% EF 2C: 57.70 >55% EF BiP: 67.00 >55% Mitral Valve MV Pk E: 0.61 MV PK A: 0.63 MV Decel Time: 289.00 E/A: 1.00 E'Lateral: 11.00 E'Medial: 9.29 E/E' Med: 6.60 E/E' Lat: 5.60 PHT: 85.00 MVA PHT: 2.59 Decel Wake: 2.12 Aortic Valve AoV Pk Michael: 1.28 AoV Mn Michael: 0.88 AoV VTI: 0.30 AoV Pk Grad: 7.00 Aov Mn Grad: 4.00 PATEL Cont.VTI: 1.73 LVOT LVOT Pk Michael: 0.91 LVOT Mn Michael: 0.64 LVOT VTI: 0.20 LVOT Pk Grad: 3.00 LVOT Mn Grad: 2.00 LVOT Diam: 1.80 LVOT Area: 2.54 Diastolic Function MV Pk E: 0.61 MV Pk A: 0.63 E/A: 1.00 E'Medial: 9.29 E/E' Med: 6.60 E' Laterial: 11.00 E/E' Lat: 5.60 Right Ventricle TAPSE (mm): 21.70 TVS' Michael: 10.40 Tricuspid Valve TR Pk Michael: 1.59 TR Pk Grad: 10.00 RA Press: 3.00 RVSP: 13.00 Great Vessels Aorta Sinus of Valsalva: 2.80 2.0-3.5 cm Ao Asc: 2.60 2.1-3.4 cm Pulmonary Valve PV Pk Michael: 0.79 Peak PV Grad: 2.00 Updated in Other Vendor System with Status of Final Manjit Gupta MD electronically signed on 02/15/2022 5:54:16 PM with status of Final
--- NOTE | 2022-02-15 12:55 | HM_ITS ---
* Total monitoring time 1 day. * Underlying rhythm is sinus. Average ventricular rate 81/Min. Range 52 to 159/Min. * About 16% the time, rate greater than 100/Min. * No significant pauses or heart blocks. * Shortness of breath in diary associated with sinus tachycardia; was doing stairs. MTDD
== END ==
LOC: HO.CARD 12:49
PROVIDERS: PCP Internal Medicine; Visit Provider Internal Medicine
DX: R00.2 Palpitations (principal)
CPT/HCPCS: 93226; 93242; 93306; Q9957

== ENCOUNTER 2022-03-02 05:51 | Day surgery (SDC) | payer OTHER, SELFPAY ==
--- NOTE | 2022-03-01 09:14 | HO.ANESPROP2 ---
Documented by User: Kenna William NP 03/01/22 09:15 HPI - Anesthesia Eval Consult details Narrative: 56yo F for Cystoscopy Hydrodistention of Bladder s/p carpal tunnel repair 08/2021 with GA-LMA 3 PMFSH Active Problems Active Problems: All Active Problems (Updated 02/12/22 @ 10:34 by Deann Tirado MD) Microscopic hematuria (Acute) Stiffness of left hand joint (Acute) Mass of soft tissue of left upper extremity (Acute) De Quervain's tenosynovitis, left (Acute) Arthritis of carpometacarpal (CMC) joint of left thumb (Acute) Pain of left thumb (Acute) Carpal tunnel syndrome of left wrist (Acute) Subcutaneous mass (Acute) Interstitial cystitis (Acute) Past Medical History Medical History Asthma Dyspnea on exertion History of right breast cancer Hypothyroid Interstitial cystitis Multiple sclerosis Palpitations Seizure Subcutaneous mass Family History Family History Mother Colon cancer Father Bone cancer Lung cancer Brother Cancer of unknown origin Family history of problems with anesthesia: No Surgical History Surgical History History of colonoscopy (06/2016) History of cystoscopy History of ear surgery History of excision of mass (06/07/18) History of lumpectomy of right breast History of right breast biopsy History of tubal ligation Hx of elbow surgery Hx of rotator cuff surgery History of Problems with Anesthesia: No Social History Social History Patient Tobacco Use Status: Former Tobacco user Quit Date: 1994 Tobacco use type: Cigarette Use of substances other than those prescribed or required for medical reasons: No Are you DNR?: No Advance Directives: Yes Advance Directives on File: Yes Advance Directives Date on File: 09/13/14 Current occupational status: disabled Current occupation: rt hand Meds Allergies Allergy/AdvReac Type Severity Reaction Status Date / Time Iodinated Contrast Media Allergy Severe (ULTRAVIST) Verified 02/12/22 09:49 [IV CONTRAST] TINGLING OF LIPS AND SWELLING LIPS AND EYES adhesive tape [ADHESIVE TAPE] Allergy Intermediate BLISTERS Verified 02/12/22 09:49 tamoxifen [TAMOXIFEN] Allergy Mild GI UPSET Verified 02/12/22 09:49 Sulfa (Sulfonamide Allergy Unknown UNKNOWN Verified 02/12/22 09:49 Antibiotics) [SULFA (SULFONAMIDE ANTIBIOTICS)] bee pollen [bee stings] Allergy Swelling Verified 02/12/22 09:49 Home Medications Medication Instructions Recorded Confirmed Last Taken Type zolpidem 5 mg tablet 5 mg PO BEDTIME PRN Insomnia 11/10/20 02/12/22 Unknown History Exam Exam Date and Time: March 01, 2022 0914 Narrative Narrative: ECHO 02/2022 Conclusions: - Essentially normal study ? Holter 02/2022 Total monitoring time 1 day. Underlying rhythm is sinus.? Average ventricular rate 81/Min.? Range 52 to 159/Min. About 16% the time, rate greater than 100/Min.? No significant pauses or heart blocks. Shortness of breath in diary associated with sinus tachycardia; was doing stairs. Assessment and Plan Assessment Anesthesia Assessment: Chart Reviewed Final Anesthetic Review Family History of Problems with Anesthesia: No History of Problems with Anesthesia: No Documented by User: Lety Lanier MD 03/02/22 08:21 [facility] Past Medical History Medical History Asthma Dyspnea on exertion History of right breast cancer Hypothyroid Interstitial cystitis Multiple sclerosis Palpitations Seizure Subcutaneous mass Family History Family History Mother Colon cancer Father Bone cancer Lung cancer Brother Cancer of unknown origin Surgical History Surgical History History of colonoscopy (06/2016) History of cystoscopy History of ear surgery History of excision of mass (06/07/18) History of lumpectomy of right breast History of right breast biopsy History of tubal ligation Hx of elbow surgery Hx of rotator cuff surgery Social History Social History Patient Tobacco Use Status: Former Tobacco user Quit Date: 1994 Tobacco use type: Cigarette Use of substances other than those prescribed or required for medical reasons: No Are you DNR?: No Advance Directives: Yes Advance Directives on File: Yes Advance Directives Date on File: 09/13/14 Current occupational status: disabled Current occupation: rt hand Meds Allergies Allergy/AdvReac Type Severity Reaction Status Date / Time Iodinated Contrast Media Allergy Severe (ULTRAVIST) Verified 02/12/22 09:49 [IV CONTRAST] TINGLING OF LIPS AND SWELLING LIPS AND EYES adhesive tape [ADHESIVE TAPE] Allergy Intermediate BLISTERS Verified 02/12/22 09:49 tamoxifen [TAMOXIFEN] Allergy Mild GI UPSET Verified 02/12/22 09:49 Sulfa (Sulfonamide Allergy Unknown UNKNOWN Verified 02/12/22 09:49 Antibiotics) [SULFA (SULFONAMIDE ANTIBIOTICS)] bee pollen [bee stings] Allergy Swelling Verified 02/12/22 09:49 Home Medications Medication Instructions Recorded Confirmed Last Taken Type zolpidem 5 mg tablet 5 mg PO BEDTIME PRN Insomnia 11/10/20 02/12/22 Unknown History Exam Height,Weight and Vital Signs: Height 4 ft 11 in Weight 55.338 kg Vital Signs Temp Pulse Resp BP Pulse Ox O2 Del Method 03/02/22 06:22 97.3 F 72 18 114/77 98 Room Air Airway Mallampati Class: II TM Dist: >3cm Neck ROM: Full Partial: Upper Loose/Missing/Broken Teeth: No (Denies broken or loose teeth) Heart: RRR Lungs: CTAB Assessment and Plan Assessment Anesthesia Assessment: Anesthesia Plan Discussed Final Anesthetic Review NPO: Yes ASA Class: III Final Preanesthetic Review: No Changes in Pt Med Stat, Meds/Allgs Chart Reviewed, Consent Obtained/Reviewed and Anes Risks/Benef Reviewed Patient Risk: Intermediate Procedure Risk: Low Assessment/Block/Sedation in SS: Assess/Block/Sedation-SS Anesthetic Plan Anesthetic Plan: GA Disposition: Standard PACU
[2022-03-02] VITALS (8 sets, daily range): BP systolic 98–127; BP diastolic 56–89; PULSE 55–74; RESP 12–18; TEMP 36.1–36.4; O2SAT 98–99; BMI 24.6
[2022-03-02] MEDS: Lactated Ringers 1,000 ML 100 ML IVCONT (06:55)
--- NOTE | 2022-03-02 07:09 | MHC.SHP ---
Pre-Procedural Eval Section A Date of Service: 03/02/22 The patient is an INPATIENT: No Section B Chief Complaint: Interstitial cystitis (chronic) without hematuria Allergies: Allergies Allergy/AdvReac Type Severity Reaction Status Date / Time Iodinated Contrast Media Allergy Severe (ULTRAVIST) Verified 02/12/22 09:49 [IV CONTRAST] TINGLING OF LIPS AND SWELLING LIPS AND EYES adhesive tape [ADHESIVE TAPE] Allergy Intermediate BLISTERS Verified 02/12/22 09:49 tamoxifen [TAMOXIFEN] Allergy Mild GI UPSET Verified 02/12/22 09:49 Sulfa (Sulfonamide Allergy Unknown UNKNOWN Verified 02/12/22 09:49 Antibiotics) [SULFA (SULFONAMIDE ANTIBIOTICS)] bee pollen [bee stings] Allergy Swelling Verified 02/12/22 09:49 Plan I have reviewed the history and physical and performed a pertinent physical examination on my patient. No changes have occurred unless specified. Cysto/Hydrodistension. Discussed risks to include but not limited to, blood in the urine, burning with urination, urgency.
--- NOTE | 2022-03-02 08:20 | W.PM.OPN ---
Operative Note Operative Note Date of Service: 03/02/22 Narrative: PREOP DIAGNOSIS: INTERSTITIAL CYSTITIS, microscopic hematuria POSTOP DIAGNOSIS: INTERSTITIAL CYSTITIS, microscopic hematuria, PROCEDURE: CYSTOSCOPY HYDRODISTENTION Anesthesia: GENERAL Details of procedure: The patient was brought into the operating room placed on the OR table in supine position. 2 g of Ancef IV. General anesthesia was administered. The patient was repositioned into lithotomy position, prepped and draped in the usual sterile fashion. Time-out was done per protocol. A 22 fr cystoscope with obturator was placed transurethrally into the bladder. Urine was drained from the bladder measuring 15 mL.The right and left ureteral orifices were visualized. The entire bladder was visualized. There were no suspicious bladder lesions seen. There were mild trabeculations noted. The bladder was filled with sterile water at 80 cm of water pressure under gravity. The bladder was distended for 2 minutes. Bladder capacity measured 300 mL. Revisualization of the bladder, noted moderate glomerulations and scarring from previous bladder biopsies. No Steven ulcerations. The bladder was refilled with sterile water again at 80 cm of water pressure under gravity. The bladder was distended for 4 minutes. The fluid was drained from the bladder and measured 375 mL. The cystoscope was removed. 2% lidocaine urojet was passed transurethrally, Solution of (1% lidocaine plain, 15 mL, 0.5 % Marcaine 15 mL mixed with 30, 000 units of heparin concentration 5000 units per mL total of 6 mL hepaine) instilled transurethrally into the bladder. The patient was brought out of anesthesia and taken to recovery in stable condition. Complications: None Drains: none
[2022-03-02] MEDS: oxyCODONE HCl Immed Release 5 MG TABLET PO (08:59)
[2022-03-02] MEDS: Acetaminophen 325 MG TABLET 650 MG PO (09:00)
== END 2022-03-02 11:31 | disposition home or self-care (01) ==
PROVIDERS: PCP Internal Medicine; Visit Provider Urology
PROC: 0T7B7ZZ Dilation of Bladder, Via Natural or Artificial Opening (ICD-10-PCS; CPT 52260; principal; 2022-03-02 07:30)
DX: N30.11 Interstitial cystitis (chronic) with hematuria (principal); J45.909 Unspecified asthma, uncomplicated; G35 Multiple sclerosis; Z88.2 Allergy status to sulfonamides; Z88.8 Allergy status to other drugs, medicaments and biological substances
CPT/HCPCS: 52260; J0690; J1885; J2250; J2405; J2795; J3010

== ENCOUNTER → 2022-03-03 14:15 | Outpatient (BNVA) | payer OTHER, SELFPAY | PROVIDERS: Visit Provider Urology | DX: N30.10 Interstitial cystitis (chronic) without hematuria (principal) | CPT/HCPCS: 51701; 51798 ==

== ENCOUNTER 2022-03-03 20:16 | Emergency (ER) | payer OTHER, SELFPAY ==
[2022-03-03 20:22] VITALS: BP 160/100; PULSE 145; RESP 24; O2SAT 99; BMI 24.2
--- NOTE | 2022-03-03 20:36 | PC.NURSE ---
Pt's bladder scanned per providers order with 381 mL of urine noted in pt's bladder. This headline writer spoke to Dr. Ny-verbal order obtained to insert 16 Fr F/, inflate balloon wit 10 mL of sterile water.
--- NOTE | 2022-03-03 20:40 | ED_ITS ---
HPI - Female Genitourinary General Chief complaint: Urogenital-Female Stated complaint: abdominal pain Time Seen by Provider: 03/03/22 20:37 Source: patient Mode of arrival: ambulatory Limitations: no limitations History of Present Illness HPI Narrative: Patientwith interstitial cystitis status post cystoscopy done today after that patient able to void since feel bladder full bladder scan showed 381 cc of urine patient had similar situation in the past requiring Walton catheterization Related Data Home Medications Medication Instructions Recorded Confirmed zolpidem 5 mg tablet 5 mg PO BEDTIME PRN Insomnia 11/10/20 02/12/22 Previous Rx's Medication Instructions Recorded oxycodone-acetaminophen 5 mg-325 1 tab PO Q6H PRN pain #6 tabs 03/02/22 mg tablet (Percocet) phenazopyridine 200 mg tablet 200 mg PO TID urinary 03/02/22 (Pyridium) burning/discomfort #30 tabs cefuroxime axetil 250 mg tablet 250 mg PO BID 7 days #14 tabs 03/03/22 tamsulosin 0.4 mg capsule 0.4 mg PO BEDTIME 30 days #30 caps 03/03/22 Allergies Allergy/AdvReac Type Severity Reaction Status Date / Time Iodinated Contrast Media Allergy Severe (ULTRAVIST) Verified 02/12/22 09:49 [IV CONTRAST] TINGLING OF LIPS AND SWELLING LIPS AND EYES adhesive tape [ADHESIVE TAPE] Allergy Intermediate BLISTERS Verified 02/12/22 09:49 tamoxifen [TAMOXIFEN] Allergy Mild GI UPSET Verified 02/12/22 09:49 Sulfa (Sulfonamide Allergy Unknown UNKNOWN Verified 02/12/22 09:49 Antibiotics) [SULFA (SULFONAMIDE ANTIBIOTICS)] bee pollen [bee stings] Allergy Swelling Verified 02/12/22 09:49 Review of Systems Review of Systems: Yes all other systems are reviewed and are negative PMFSH Past Medical History Medical History Asthma Dyspnea on exertion History of right breast cancer Hypothyroid Interstitial cystitis Multiple sclerosis Palpitations Seizure Subcutaneous mass Surgical History History of colonoscopy (06/2016) History of cystoscopy History of ear surgery History of excision of mass (06/07/18) History of lumpectomy of right breast History of right breast biopsy History of tubal ligation Hx of elbow surgery Hx of rotator cuff surgery Family History Family History Mother Colon cancer Father Bone cancer Lung cancer Brother Cancer of unknown origin Social History Social History Patient Tobacco Use Status: Former Tobacco user Quit Date: 1994 Tobacco use type: Cigarette Advance Directives: Yes Advance Directives Information Provided: No Advance Directives on File: No Advance Directives Date on File: 09/13/14 Current occupational status: disabled Current occupation: rt hand Physical Exam Vital Signs: Vital Signs: Last Vital Signs Temp 97.8 F 03/03/22 22:00 Pulse 81 03/03/22 22:00 Resp 16 03/03/22 22:00 BP 99/62 03/03/22 22:00 Pulse Ox 98 03/03/22 22:00 O2 Del Method 03/03/22 22:00 BMI result Body Mass Index 24.2 Appearance: Alert. Oriented X3. No acute distress. Eyes: PERRLA, No Nystagmus ENT: Pharynx normal. Oral Mucosa moist Neck: Normal inspection. Neck supple. CVS: Normal heart rate and rhythm. Pulses normal. Respiratory: No respiratory distress. Equal air entry bilateral, no wheezing/rales/rhonchi Abdomen: Soft , suprapubic tenderness Bowel sounds are present, no mass pa lpable, no CVA tenderness Skin: Skin warm and dry. Normal skin color. Normal skin turgor. Extremities: No lower extremity edema. No calf tenderness Neuro: Oriented X 3. No motor deficit. Medications Administered Discontinued Medications Generic Name Dose Route Start Last Admin Trade Name Freq PRN Reason Stop Dose Admin Cefuroxime Axetil 250 mg 03/03/22 21:25 03/03/22 21:40 Cefuroxime Axetil 250 Mg Tablet PO 03/03/22 21:26 250 mg ONCE ONE Administration MDM - Female Genitourinary MDM Narrative Medical decision making narrative: Patient with acute urinary retention with slight UTI Walton catheter was placed will give her Ceftin advised to follow-up with urologist Differential Diagnosis Differential diagnosis: Likely urinary tract infection Lab Data Attestation: I reviewed the patient's lab results. Labs: Lab Results 03/03/22 Range/Units 20:54 Urine Color Dark Yellow Urine Appearance Clear Urine pH 7.0 (5.0-9.0) Ur Specific [place] 1.015 (1.005-1.025) Urine Protein 30 (1+) H (Neg-Trace) mg/dL Urine Glucose (UA) Negative (Negative) mg/dL Urine Ketones Trace (Negative) mg/dL Urine Blood Large (3+) H (Negative) Urine Nitrite Positive H (Negative) Ur Leukocyte Esterase Small (1+) H (Negative) Urine RBC >20 H (0-2) /HPF Urine WBC 11-20 (0-5) /HPF Ur Squamous Epith Cells 0-2 (0-2) /HPF Urine Bacteria Trace (None Seen) Hyaline Casts 0-2 (0-2) /LPF Discharge Plan Discharge Clinical Impression: Acute urinary retention, UTI (urinary tract infection) Patient Disposition: Home, Self-Care Instructions: Urinary Tract Infection in Women (ED), Acute Urinary Retention in Women (ED) Additional Instructions: Drink plenty of fluids Take antibiotic as prescribed Walton catheter care as advised Follow with urologist Prescriptions: New cefuroxime axetil 250 mg tablet 250 mg PO BID 7 Days Qty: 14 0RF No Action phenazopyridine [Pyridium] 200 mg tablet 200 mg PO TID Qty: 30 3RF Rx Instructions: take with food oxycodone-acetaminophen [Percocet] 5-325 mg tablet 1 tab PO Q6H PRN (Reason: pain) Qty: 6 0RF Rx Instructions: Partial Fill upon patient request. zolpidem 5 mg tablet 5 mg PO BEDTIME PRN (Reason: Insomnia) tamsulosin 0.4 mg capsule 0.4 mg PO BEDTIME 30 Days Qty: 30 1RF Interventions: ED Discharge Assessment Last Done: 03/03/22 22:06 Discharge Date/Time: 03/03/22 22:35
--- OUTSIDE RECORDS SUMMARY | 2022-03-03 20:55 | XMS_ITS ---
:1965 Author Organization [facility] Address [address] [place] [address] Care Team Providers Name Role Phone Keyshawn Lopez Unavailable Unavailable PROBLEMS Type Condition ICD9-CM Code [id number] Code Onset Condition SNO MED Code Dates Status Problem Family history of Z80.0 Active 31 2464328 colon cancer Problem Constipation, K59.00 Active 018009 08 unspecified constipation type Problem Encounter for Z12.12 Active 509189 007 screening for malignant neoplasm of rectum Problem Encounter for Z12.11 Active 707325 004 screening for malignant neoplasm of colon ALLERGIES Substance Reaction Event Type Date Status Topamax Unknown Drug Allergy Jan, Active ENCOUNTERS Encounter Location Date Diagnosis [address] Feb, [facility] [address] [place] [address] Jul, [facility] [address] [place] [address] [facility] [address] [place] [address] Jun, MIGUEL Pascual [phone] [address] Dec, Constipa tion, unspecified [facility] [address] [place] constipati on type K59.00 ; [address] Family history o f colon cancer Z80.0 ; E ncounter for screening for ma lignant neoplasm of colo n Z12.11 and Encounter for ca reening for malignant neopla sm of rectum Z12.12 [facility] [place] [address] [facility] Jun, MIGUEL Pascual [phone] [place] [address] May, Unspecif ied constipation [facility] [address] [place], [place] [address] ; S pecial screening [address] for malignant ne oplasms, colon V76.51 and Family history of malig nant neoplasm of alex rointestinal tract V16.0 [facility] [place] [address] [facility] 18 Jun, [address] [place] [id number] IMMUNIZATIONS No Known Immunizations SOCIAL HISTORY Never Assessed REASON FOR REFERRAL FUNCTIONAL STATUS PLAN OF CARE Activity Details Future Appointment Provider Name:Keyshawn Lopez , 2022-03-17 02:00:00 PM, [address], [address], [place], [address], Future/Pending Procedure COLONOSCOPY [id number] VITAL SIGNS Weight 113 lbs 2015-12-19 Weight 132 lbs 2011-05-13 Height 59.5 in 2015-12-19 Height 59.5 in 2011-05-13 BMI 22.44 kg/m2 2015-12-19 BMI 26.21 kg/m2 2011-05-13 Heart Rate 64 /min 2011-05-13 Blood pressure systolic 104 mm Hg 2015-12-19 Blood pressure diastolic 64 mm Hg 2015-12-19 MEDICATIONS Medication Instructions Dosage Frequency Start Date End Date Duration S tatus Ambien 5 MG Orally Once a day 1 tablet at 24h Active bedtime PROCEDURES Procedure Date Ordered Result Body Site BP SCR PRFRM RCMDD DEFIND SCR INTVL Dec 19, 2015 TOBACCO NON-USER Dec 19, 2015 DOC MEDS VERIFIED W/PT OR RE Dec 19, 2015 BMI >=30 CALCUATE W/FOLLOWUP Dec 19, 2015 FLU IMM NO ORD/ADMIN DOC ALIYA Dec 19, 2015 RESULTS No Results REASON FOR VISIT Patient presents today for a colon screening, CCA ID NUMBERS, CONSTIPATION, ov appt, fam hx colon ca, screening, SCREENING COLON, colorectal cancer screening(mom Colon CA, constipation Insurance Providers [facility] Member Patient Patient Patient Patient Patient Subscriber Subscriber Subscriber Group Insurance Plan Plan Plan Plan ID Relationship Address Phone Name Date of ID Name Date of No Type Insurance Insurance Insurance Coverage to Subscriber Address Phone Name Dates [employer] [phone] [employer] self PATRICIA [id number] [facility] [id number] [facility] Plan S [id number] [employer] [phone] COMMONWE[employer] self PATRICIA 1 [id number] TH CARE [place] [address] [facility] S [address] MEDICARE [id number] MEDICARE self PATRICIA [id number] OF [address] [facility] [address] MEDICAID [id number] MEDICAID self [place]RICIA [id number] OF [facility] [id number] [facility] [address] [facility] S [address]
[2022-03-03 21:14] LABS: Appearance Urine Clear; Color Urine Dark Yellow; Glucose Urine UA Negative (Negative); Leukocyte Esterase Urine Small (1+) (Negative); Nitrite Urine Positive (Negative); Specific Gravity - Urine 1.015 (1.005-1.025); UMIC TRIGGER UACC YES; Urine Blood Large (3+) (Negative); Urine Ketones Trace mg/dL (Negative); Urine Protein 30 (1+) mg/dL (Neg-Trace)
[2022-03-03 21:33] LABS: Bacteria Urine Trace (None Seen); Hyaline Casts Urine 0-2 /LPF (0-2); RBC Urine >20 /HPF (0-2); Squamous Epithelial Cell Urine 0-2 /HPF (0-2); UACC Culture Trigger YES
[2022-03-03 22:00] VITALS: BP 99/62; PULSE 81; RESP 16; TEMP 36.6; O2SAT 98
== END 2022-03-03 22:35 | disposition home or self-care (01) ==
PROVIDERS: Emergency Provider Internal Medicine
DX: R33.8 Other retention of urine (principal); N39.0 Urinary tract infection, site not specified; G35 Multiple sclerosis
CPT/HCPCS: 51702; 51798; 81001; 81003; 87086; 99283; 99284

== ENCOUNTER 2022-03-18 15:27 | Outpatient (REF) | payer OTHER, SELFPAY ==
--- NOTE | ~2022-03-18 | US_ITS ---
EXAMINATION: US RETROPERITONEAL LIMITED (RENAL ONLY) CLINICAL INFORMATION: Other microscopic hematuria. COMPARISON: MRI abdomen 01/30/2020. Renal ultrasound 01/25/2018. TECHNIQUE: Real-time imaging of the kidneys. FINDINGS: RIGHT KIDNEY: 10.5 x 4.3 x 4.8 cm (SAG x AP x TRV). The kidney is normal in size, contour, and echogenicity. Renal cortical thickness is normal. No calculi or focal parenchymal lesions. No hydronephrosis. LEFT KIDNEY: 10.8 x 5.7 x 4.5 cm (SAG x AP x TRV). The kidney is normal in size, contour, and echogenicity. Renal cortical thickness is normal. No calculi or focal parenchymal lesions. No hydronephrosis. US/US renal BI IMPRESSION: No hydronephrosis or nephrolithiasis.
== END 2022-03-18 15:28 | disposition home or self-care (01) ==
LOC: HO.US 15:27
PROVIDERS: Visit Provider Urology
DX: R31.29 Other microscopic hematuria (principal)
CPT/HCPCS: 76775

== ENCOUNTER → 2022-03-24 10:53 | Outpatient (BNVA) | payer OTHER, SELFPAY | PROVIDERS: Visit Provider Urology | DX: N30.11 Interstitial cystitis (chronic) with hematuria (principal) | CPT/HCPCS: 99212 ==

== ENCOUNTER 2022-05-26 12:39 | Day surgery (SDC) | payer OTHER, SELFPAY ==
[2022-05-26 13:10] VITALS: BMI 24.8
[2022-05-26 13:29] VITALS: BP 129/91; PULSE 91; RESP 16; TEMP 36.3; O2SAT 99
[2022-05-26] MEDS: Lactated Ringers 1,000 ML 50 ML IVCONT (13:42)
--- NOTE | 2022-05-26 15:25 | HO.ANESPROP2 ---
HPI - Anesthesia Eval Consult details Narrative: For colonoscopy PMFSH Active Problems Active Problems: All Active Problems (Updated 05/26/22 @ 13:14 by Essie Pierre, RN) Mass of soft tissue of left upper extremity (Acute) De Quervain's tenosynovitis, left (Acute) Arthritis of carpometacarpal (CMC) joint of left thumb (Acute) Pain of left thumb (Acute) Carpal tunnel syndrome of left wrist (Acute) Stiffness of left hand joint (Acute) Microscopic hematuria (Acute) Subcutaneous mass (Acute) Interstitial cystitis (Acute) Past Medical History Medical History (Updated 05/26/22 @ 13:14 by Essie Pierre, RN) Asthma Breast cancer Dyspnea on exertion History of right breast cancer Hypothyroid Interstitial cystitis Multiple sclerosis Palpitations Seizure Subcutaneous mass Patient : No Family History Family History Mother Colon cancer Father Bone cancer Lung cancer Brother Cancer of unknown origin Family history of problems with anesthesia: No Surgical History Surgical History History of colonoscopy (06/2016) History of cystoscopy History of ear surgery History of excision of mass (06/07/18) History of lumpectomy of right breast History of right breast biopsy History of tubal ligation Hx of elbow surgery Hx of rotator cuff surgery History of Problems with Anesthesia: No Social History Social History Patient Tobacco Use Status: Former Tobacco user Quit Date: 1994 Tobacco use type: Cigarette Use of substances other than those prescribed or required for medical reasons: No Are you DNR?: No Advance Directives: Yes Advance Directives on File: Yes Advance Directives Date on File: 09/13/14 Current occupational status: disabled Current occupation: rt hand Meds Allergies Allergy/AdvReac Type Severity Reaction Status Date / Time Iodinated Contrast Media Allergy Severe (ULTRAVIST) Verified 03/24/22 11:00 [IV CONTRAST] TINGLING OF LIPS AND SWELLING LIPS AND EYES adhesive tape [ADHESIVE TAPE] Allergy Intermediate BLISTERS Verified 03/24/22 11:00 tamoxifen [TAMOXIFEN] Allergy Mild GI UPSET Verified 03/24/22 11:00 Sulfa (Sulfonamide Allergy Unknown UNKNOWN Verified 03/24/22 11:00 Antibiotics) [SULFA (SULFONAMIDE ANTIBIOTICS)] bee pollen [bee stings] Allergy Swelling Verified 03/24/22 11:00 Active Medications: Current Medications Sodium Biphosphate/Sodium Phosphate (Sodium Phosphate,[place]-Dibasic 133 Ml Enema) 133 ml ME ONCE PRN PRN Reason: Poor Colonoscopy Prep Results Home Medications Medication Instructions Recorded Confirmed Last Taken Type zolpidem 5 mg tablet 5 mg PO BEDTIME PRN Insomnia 11/10/20 05/26/22 05/26/22 02:00 History Exam Exam Date and Time: May 26, 2022 152 Height,Weight and Vital Signs: Height 4 ft 11 in Weight 55.792 kg Last Vital Signs Temp 97.4 F 05/26/22 13:29 Pulse 91 05/26/22 13:29 Resp 16 05/26/22 13:29 BP 129/91 H 05/26/22 13:29 Pulse Ox 99 05/26/22 13:29 O2 Del Method 05/26/22 13:29 Airway Mallampati Class: I TM Dist: >3cm Partial: Upper Heart: ok Lungs: ok Assessment and Plan Assessment Anesthesia Assessment: Anesthesia Plan Discussed and Chart Reviewed Final Anesthetic Review Family History of Problems with Anesthesia: No History of Problems with Anesthesia: No NPO: Yes ASA Class: III Final Preanesthetic Review: No Changes in Pt Med Stat, Meds/Allgs Chart Reviewed, Consent Obtained/Reviewed and Anes Risks/Benef Reviewed Patient Risk: Intermediate Procedure Risk: Low Anesthetic Plan Anesthetic Plan: MAC: Disposition: Standard PACU
--- NOTE | 2022-05-26 16:13 | PM.OP ---
Brief Operative Note Date of Service: 05/26/22 Pre-op diagnosis: Screening Post-op diagnosis: other (Diverticulosis) Procedure: Colonoscopy to the cecum and TI Surgeon: Keyshawn Lopez Anesthesia: MAC Was an Squaring Machine Operator used for this Procedure?: No Estimated blood loss (mL): 0 Pathology: none sent Condition: stable Disposition: PACU
[2022-05-26 16:14] VITALS: BP 104/55; PULSE 95; RESP 14; TEMP 36.1; O2SAT 98
[2022-05-26 16:29] VITALS: BP 124/73; PULSE 75; RESP 14; TEMP 36.3; O2SAT 99
[2022-05-26 16:34] VITALS: BP 116/75; PULSE 72; RESP 15; TEMP 36.3; O2SAT 99
--- NOTE | 2022-05-27 04:37 | OP_ITS ---
SURGEON: Keyshawn Lopez MD INDICATIONS: The patient presents for evaluation of colorectal cancer screening and family history of colon cancer. Full consent has been obtained from her for this, including risks of bleeding and perforation. PREOPERATIVE DIAGNOSIS: POSTOPERATIVE DIAGNOSIS: PROCEDURE PERFORMED: Colonoscopy to the cecum and terminal ileum. ESTIMATED BLOOD LOSS: COMPLICATIONS: ANESTHESIA: Medication used, monitored anesthesia care. ASSISTANTS: SPECIMENS: PREOPERATIVE DIAGNOSES: Colorectal cancer screening and family history of colon cancer. POSTOPERATIVE DIAGNOSES: Colorectal cancer screening and family history of colon cancer, diverticulosis, and internal hemorrhoids. PROCEDURE IN DETAIL: The patient was placed in the left lateral decubitus position. The digital rectal exam revealed no abnormalities. The Olympus video pediatric colonoscope was entered into the rectum and advanced easily to the cecum. Once in the cecum, I did identify a normal-appearing cecal pouch with appendiceal orifice and a normal-appearing ileocecal valve. The terminal ileum was cannulated and appeared normal. The scope was withdrawn back in the colon. The entire cecum and ileocecal valve appeared normal. The scope was slowly withdrawn assessing all mucosal surfaces carefully. Preparation was excellent. I did not visualize any sign of polyps, colitis nor angiodysplasia. There was a mild amount of sigmoid diverticulosis. In the rectum, scope was retroflexed, visualizing internal hemorrhoids, but no other pathology. The rectal mucosa appeared normal. The scope was straightened and withdrawn from the patient. She tolerated the procedure well and was returned to the recovery area in stable condition. IMPRESSION: 1. Mild sigmoid diverticulosis. 2. Internal hemorrhoids. PLAN: Given her family history of colon cancer in her mother and brother, I would recommend a repeat colonoscopy in 5 years for further screening. She will otherwise see me on a p.r.n. basis. MD MAYITO Roldan/GILMA / [id number]
== END 2022-05-26 17:02 | disposition home or self-care (01) ==
PROVIDERS: Visit Provider Internal Medicine
PROC: 0DJD8ZZ Inspection of Lower Intestinal Tract, Via Natural or Artificial Opening Endoscopic (ICD-10-PCS; CPT 45378; principal; 2022-05-26 13:50)
DX: Z12.11 Encounter for screening for malignant neoplasm of colon (principal); Z80.0 Family history of malignant neoplasm of digestive organs; K57.30 Diverticulosis of large intestine without perforation or abscess without bleeding; K64.8 Other hemorrhoids; K59.00 Constipation, unspecified; G40.909 Epilepsy, unspecified, not intractable, without status epilepticus; G35 Multiple sclerosis; R42 Dizziness and giddiness; N30.10 Interstitial cystitis (chronic) without hematuria; Z85.3 Personal history of malignant neoplasm of breast; Z79.899 Other long term (current) drug therapy; Z91.041 Radiographic dye allergy status; Z91.040 Latex allergy status; Z88.2 Allergy status to sulfonamides; Z88.8 Allergy status to other drugs, medicaments and biological substances; Z87.891 Personal history of nicotine dependence
CPT/HCPCS: G0105; J3010

== ENCOUNTER 2022-05-27 10:54 | Outpatient (REF) | payer OTHER, SELFPAY ==
--- NOTE | ~2022-05-27 | XR_ITS ---
EXAMINATION: XR SACRUM AND COCCYX CLINICAL INFORMATION: Pain COMPARISON: None TECHNIQUE: 2 views of the sacrum and 2 views of the coccyx were obtained. FINDINGS: There are no fractures. No bone, joint or soft tissue abnormality is demonstrated. XR/XR sacrum coccyx min 2V IMPRESSION: Unremarkable examination.
== END 2022-05-27 10:55 | disposition home or self-care (01) ==
LOC: HO.XRAY 10:54
PROVIDERS: PCP Internal Medicine; Visit Provider General Practice
DX: M53.3 Sacrococcygeal disorders, not elsewhere classified (principal)
CPT/HCPCS: 72220

== ENCOUNTER 2022-11-09 13:43 | Outpatient (REF) | payer OTHER, SELFPAY ==
[2022-11-10 04:02] LABS: Syphilis Screen Nonreactive (Nonreactive)
[2022-11-10 04:50] LABS: HBS Num1 23.39 mIU/mL (0-7.99); HBc Num1 0.05 S/CO (0.00-0.79); HBsAGNum1 0.31 S/CO (0.00-0.99); HIV AB/AG Nonreactive (Nonreactive); HIV Num 1 0.05 S/CO (0.00-0.99); Hepatitis B Core Antibody Nonreactive (Nonreactive); Hepatitis B Surface Antigen Negative (Negative); ~HepC Num1 0.09 S/CO (0.00-0.79); ~Hepatitis B Surface Antibody REACTIVE (Nonreactive); ~Hepatitis C Antibody Nonreactive (Nonreactive)
[2022-11-10 11:34] LABS: CT PCR NOT DETECTED (Not Detect.); NG PCR NOT DETECTED (Not Detect.)
[2022-11-10 12:49] LABS: BV Int Neg Control Negative (Negative); BV Int Pos Control Positive (Positive)
== END 2022-11-09 13:44 | disposition home or self-care (01) ==
LOC: HO.CHCLDS 13:43
PROVIDERS: Visit Provider Advanced Practice Midwife
DX: Z11.4 Encounter for screening for human immunodeficiency virus [HIV] (principal); Z20.2 Contact with and (suspected) exposure to infections with a predominantly sexual mode of transmission
CPT/HCPCS: 0353U; 36415; 86704; 86706; 86780; 86803; 87340; 87389; 87480; 87510; 87660

== ENCOUNTER 2022-12-10 15:14 | Outpatient (REF) | payer OTHER, SELFPAY ==
[2022-12-10 17:31] LABS: MANUAL DIFF FLAG NO
[2022-12-10 17:39] LABS: Basophils Absolute Auto 0.1 X10*3/uL (0.0-0.2); Basophils Percent Auto 0.8 % (0-2); Eosinophils Absolute Auto 0.1 X10*3/uL (0.0-0.4); Eosinophils Percent Auto 1.6 % (0-4); Hematocrit 41.5 % (37.0-47.0); Hemoglobin 13.6 g/dl (12.0-16.0); Imm Gran Abs Auto 0.02 X10*3/uL (0.00-0.03); Imm Gran Pct Auto 0.3 % (0.0-0.4); Lymphocytes Absolute Auto 1.3 X10*3/uL (1.2-4.9); Lymphocytes Percent Auto 21.1 % (20-40); Mean Corpuscular HGB Conc 32.8 g/dl (31.0-35.0); Mean Corpuscular Hemoglobin 31.6 pg (27.0-33.0); Mean Corpuscular Volume 96.5 fL (80.0-98.0); Mean Platelet Volume 10.7 fL (9.4-12.3); Monocytes Absolute Auto 0.6 X10*3/uL (0.1-1.2); Monocytes Percent Auto 8.6 % (2-11); Neutrophils Absolute Auto 4.3 x10*3/uL (2.0-8.3); Neutrophils Percent Auto 67.6 % (45-73); Platelet Count 252 X10*3/uL (160-400); Red Cell Distribution Width 12.8 % (11.0-16.0); White Blood Count 6.4 X10*3/uL (4.8-10.8)
[2022-12-10 18:11] LABS: Alanine Aminotransferase 11 U/L (0-31); Albumin Level 4.4 g/dL (3.5-5.0); Alkaline Phosphatase 86 U/L (39-117); Anion Gap 12 (12-20); Aspartate Amino Transferase 15 U/L (5-31); Bilirubin Total 0.4 mg/dL (0.0-1.0); Blood Urea Nitrogen 11 mg/dL (9-16); Calcium 10.1 mg/dL (8.4-10.2); Carbon Dioxide 29 mmol/L (22-29); Chloride 103 mmol/L (96-108); Estimated Glomerular Filt Rate > 60; Glucose Random 90 mg/dL (60-115); Sodium 140 mmol/L (135-145); Total Protein 7.3 g/dL (6.5-8.0)
== END 2022-12-10 15:15 | disposition home or self-care (01) ==
LOC: HO.CHCLDS 15:14
PROVIDERS: Visit Provider Internal Medicine
DX: M94.0 Chondrocostal junction syndrome [Tietze] (principal); F51.01 Primary insomnia
CPT/HCPCS: 36415; 80053; 85025

== ENCOUNTER 2023-01-24 09:29 | Outpatient (AMB) | payer OTHER, SELFPAY ==
--- NOTE | 2023-01-24 09:29 | A.OFFVIS_ITS ---
Intake Intake Visit Reasons: Interstitial cystitis- follow up Intake Note: Patient presents today for a follow-up on Interstitial Cystitis: Meds- Pyridium & Tamsulosin (Pt stated not taking) Allergies to Antibiotic- Sulfa Blood Thinner- None PVR- <34 mL Traveling Secretary Required: No Accompanied by: Self / Same As Patient Allergies Iodinated Contrast Media [IV CONTRAST] Allergy (Severe, Verified 01/24/23 09:34) (ULTRAVIST) TINGLING OF LIPS AND SWELLING LIPS AND EYES adhesive tape [ADHESIVE TAPE] Allergy (Intermediate, Verified 01/24/23 09:34) BLISTERS tamoxifen [TAMOXIFEN] Allergy (Mild, Verified 01/24/23 09:34) GI UPSET Sulfa (Sulfonamide Antibiotics) [SULFA (SULFONAMIDE ANTIBIOTICS)] Allergy (Un known, Verified 01/24/23 09:34) UNKNOWN bee pollen [bee stings] Allergy (Verified 01/24/23 09:34) Swelling HPI HPI Comments History of Present Illness Details Lakisha is a 57-year-old female who presents today to the office for a follow-up. 01/24/23? She is followed today for interstitical cystitis. She was last seen by me on 03/24/22.?She is a status post Cystoscopy hydrodistention done on 03/02/2022, findings notable for glmoerulations and small bladder capacity 375 mL. She returned to the hospital for bladder pain and Walton catheter was placed for urinary retention and had an overnight stay for observation. In office follow-up she stated that her urinary symptoms of urgency had improved. She has been counselled on diet modifications to avoid dietary bladder irritants. Patient states that her urinary symptoms of urgency has improved at this time. Review of charts: Last visit: 03/24/22? -s/p cysto/hydro- 03/02/22--findings ++g lomerulations, small bladder capacity post distension 375 mL. 01/24/23: Evaluation today?UA?Leukocytes : negative; blood: negative. 01/24/23: Plan: IC - Diet modification IC diet pamphlet provided Urinary urgency secondary to small capacity bladder, the patient is not interested in medications at this time. Will continue to monitor. [facility] Medical History Breast cancer History of right breast cancer Hypothyroid Multiple sclerosis Seizure Dyspnea on exertion Palpitations Asthma Subcutaneous mass Interstitial cystitis Surgical History Hx of elbow surgery Hx of rotator cuff surgery History of cystoscopy History of excision of mass (06/07/18) History of colonoscopy (06/2016) History of lumpectomy of right breast History of right breast biopsy History of tubal ligation History of ear surgery Family History Mother Colon cancer Father Bone cancer Lung cancer Brother Cancer of unknown origin Social History Patient Tobacco Use Status: Former Tobacco user Quit Date: 1994 Tobacco use type: Cigarette Advance Directives Date on File: 09/13/14 Current occupational status: disabled Current occupation: rt hand Review of Systems Const All systems reviewed & are unremarkable except as noted in HPI and below Reports no additional complaints Eyes Reports no additional complaints ENT Reports no additional complaints Card Denies dyspnea Resp Denies cough and Denies dyspnea GI Reports no additional complaints Reports no additional complaints Musc Reports no additional complaints Skin/Breast Denies rash and Denies unusual bruising Neuro Reports no additional complaints Psych Reports no additional complaints Endo Reports no additional complaints [place]/Lymph Reports no additional complaints Aller/Immun Reports no additional complaints Office Procedures Post Void Residual Post Residual Void Post Void Residual (PVR): 34 [id number] Void Residual by ultrasound Results AMB Urinalysis, Automated UA Leukoctes 0 Edmund/uL Last Edit by LITTLE Chaney on 01/24/23 09:47 UA Nitrite Negative Last Edit by LITTLE Chaney on 01/24/23 09:47 UA Urobilinogen 0.2 mg/dL Last Edit by LITTLE Chaney on 01/24/23 09:4 7 UA Protein 15 mg/dL Last Edit by LITTLE Chaney on 01/24/23 09:47 UA pH 6.0 Last Edit by Ulises Rader A on 01/24/23 09:47 UA Blood 0 Enoc/uL Last Edit by Ulises Rader A on 01/24/23 09:47 UA Specific [place] 1.030 Last Edit by Ulises Rader [place] on 01/24/23 09: 47 UA Ketone Positive Last Edit by Ulises Rader A on 01/24/23 09:47 5 mg Ulises Rader 01/24/23 09:47 UA Bilirubin 0 mg/dL Last Edit by Ulises Rader [place] on 01/24/23 09:47 UA Glucose 0 mg/dL Last Edit by Ulises Rader [place] on 01/24/23 09:47 Results Reviewed Results Reviewed: Laboratory Last Values Urine pH (Auto) 6.0 01/24/23 09:33 Specific [place] (Auto) 1.030 01/24/23 09:33 Urine Protein (Auto) 15 mg/dL 01/24/23 09:33 Glucose (UA)(Auto) 0 mg/dL 01/24/23 09:33 Urine Ketones (Auto) Positive 01/24/23 09:33 Urine Blood (Auto) 0 Enoc/uL 01/24/23 09:33 Urine Nitrite (Auto) Negative 01/24/23 09:33 Urine Bilirubin (Auto) 0 mg/dL 01/24/23 09:33 Urine Urobilinogen (Auto) 0.2 mg/dL 01/24/23 09:33 Leukocyte Esterase (Auto) 0 Edmund/uL 01/24/23 09:33 Assessment & Plan Assessment & Plan (1) Interstitial cystitis: Code(s): N30.10 - Interstitial cystitis (chronic) without hematuria (2) Urinary urgency: Code(s): R39.15 - Urgency of urination Plan IC - Diet modification IC diet pamphlet provided Urinary urgency secondary to small capacity bladder, the patient is not interested in medications at this time. Will continue to monitor. Orders: Orders AMB Urinalysis Automated Today Z13.9 - Encounter for screening, unspecified AMB Post Void Residual by ultrasound Today N39.8 - Other specified disorders of urinary system Patient Instructions: The patient had an opportunity to ask questions regarding treatment plan. All questions were answered. Imaging, Laboratory studies and physical exam results were discussed and reviewed in detail. No major barriers to understanding were identified. The patient expressed understanding and agreement with the above treatment plan.? ? ? The patient is aware they should contact our office by phone for worsening of their current condition or the appearance of new symptoms. Compliance is encouraged with any medications and followup testing that is ordered.? ? ? It is a privilege to be allowed the opportunity to participate in the urologic care of your patient. If you have any questions or concerns regarding treatment for the above conditions please do not hesitate to contact me. The office telephone contact is [phone].? ? ? This note is constructed in part using voice recognition software. While every effort has been made to ensure accuracy developer support engineer errors may have been included.? ? ? Yours sincerely,? ? ? Deann Tirado MD? Coding Level of Care Code Est Pt Level 3 (02402) Diagnoses Interstitial cystitis N30.10 Urinary urgency R39.15 CPT Codes Post Residual Void - PVR CPT Code: 36620-Zxov Void Residual by ultrasound ([id number])
== END 2023-01-24 10:19 | disposition home or self-care (01) ==
PROVIDERS: Visit Provider Urology
DX: N30.10 Interstitial cystitis (chronic) without hematuria (principal); R39.15 Urgency of urination; Z13.9 Encounter for screening, unspecified
CPT/HCPCS: 99213

== ENCOUNTER → 2023-01-24 09:29 | Outpatient (BNVA) | payer OTHER, SELFPAY | PROVIDERS: Visit Provider Urology | DX: N30.10 Interstitial cystitis (chronic) without hematuria (principal); R39.15 Urgency of urination | CPT/HCPCS: 51798; 81003; 99212 ==

== ENCOUNTER 2023-01-31 15:35 | Outpatient (REF) | payer OTHER, SELFPAY ==
[2023-02-01 11:12] LABS: MANUAL DIFF FLAG NO
[2023-02-01 11:24] LABS: Basophils Percent Auto 0.6 % (0-2); Eosinophils Absolute Auto 0.1 X10*3/uL (0.0-0.4); Hematocrit 42.3 % (37.0-47.0); Imm Gran Abs Auto 0.01 X10*3/uL (0.00-0.03); Imm Gran Pct Auto 0.2 % (0.0-0.4); Lymphocytes Absolute Auto 1.3 X10*3/uL (1.2-4.9); Lymphocytes Percent Auto 20.5 % (20-40); Mean Corpuscular HGB Conc 33.1 g/dl (31.0-35.0); Mean Corpuscular Hemoglobin 31.7 pg (27.0-33.0); Mean Corpuscular Volume 95.9 fL (80.0-98.0); Mean Platelet Volume 10.8 fL (9.4-12.3); Monocytes Absolute Auto 0.5 X10*3/uL (0.1-1.2); Monocytes Percent Auto 8.3 % (2-11); Neutrophils Absolute Auto 4.3 x10*3/uL (2.0-8.3); Neutrophils Percent Auto 69.4 % (45-73); Platelet Count 256 X10*3/uL (160-400); Red Blood Count 4.41 X10*6/uL (4.20-5.50); Red Cell Distribution Width 12.3 % (11.0-16.0); White Blood Count 6.2 X10*3/uL (4.8-10.8)
[2023-02-01 11:44] LABS: D Dimer High Sensitivity < 150 NG/ML
== END 2023-01-31 15:36 | disposition home or self-care (01) ==
LOC: HO.CHCLDS 15:35
PROVIDERS: Visit Provider Internal Medicine
DX: R06.02 Shortness of breath (principal)
CPT/HCPCS: 36415; 85025; 85379

== ENCOUNTER 2023-01-31 16:02 | Outpatient (REF) | payer OTHER, SELFPAY ==
--- NOTE | ~2023-01-31 | XR_ITS ---
EXAMINATION: XR CHEST CLINICAL INFORMATION: Chest wall pain, shortness of breath COMPARISON: 01/22/2022 TECHNIQUE: 2 views of the chest were obtained. FINDINGS: Surgical clips in the right axilla. There is no gross pneumothorax. Heart size is normal. Degenerative changes in the thoracic spine. No pleural effusion. No focal consolidation to suggest pneumonia. XR/XR chest 2V IMPRESSION: No evidence of pneumonia.
== END 2023-01-31 16:03 | disposition home or self-care (01) ==
LOC: HO.XRAY 16:02
PROVIDERS: PCP Internal Medicine; Visit Provider Internal Medicine
DX: R07.89 Other chest pain (principal); R06.02 Shortness of breath
CPT/HCPCS: 71046

== ENCOUNTER 2023-05-04 09:59 | Outpatient (REF) | payer OTHER, SELFPAY ==
[2023-05-04 14:44] LABS: Anion Gap 13 (12-20); Blood Urea Nitrogen 18 mg/dL (9-16); Calcium 9.6 mg/dL (8.4-10.2); Carbon Dioxide 28 mmol/L (22-29); Chloride 102 mmol/L (96-108); Estimated Glomerular Filt Rate > 60; Glucose Random 78 mg/dL (60-115); Sodium 139 mmol/L (135-145)
[2023-05-04 15:00] LABS: Appearance Urine Clear; Color Urine Yellow; Glucose Urine UA Negative (Negative); Leukocyte Esterase Urine Negative (Negative); Nitrite Urine Negative (Negative); PH 5.5 (5.0-9.0); Specific Gravity - Urine >= 1.030 (1.005-1.025); Urine Blood Negative (Negative); Urine Ketones Trace mg/dL (Negative); Urine Protein Negative (Neg-Trace)
[2023-05-04 15:03] LABS: Bacteria Urine None Seen (None Seen); Hyaline Casts Urine 0-2 /LPF (0-2); RBC Urine 0-2 /HPF (0-2); Squamous Epithelial Cell Urine 0-2 /HPF (0-2); WBC Urine 0-5 /HPF (0-5)
== END 2023-05-04 10:00 | disposition home or self-care (01) ==
LOC: HO.CHCLDS 09:59
PROVIDERS: Visit Provider Internal Medicine
DX: R10.31 Right lower quadrant pain (principal); M62.838 Other muscle spasm
CPT/HCPCS: 36415; 80048; 81001

== ENCOUNTER → 2023-06-09 13:48 | Outpatient (REF) | payer OTHER, SELFPAY ==
--- NOTE | 2023-06-09 13:52 | CA_ITS ---
Transthoracic Echocardiogram Patient (Last, First, Middle): Lakisha Hearn A Gender: Female Date of : 1965 Age: 57 Procedure Date: 06/09/2023 Procedure Type: Transthoracic Echocardiogram Location: OP Height: 149.86 cm Weight: 54.43 kg BSA: 1.48 m2 Heart Rate: 71 bpm BP: 110 / 68 mmHg Web Consultant: SB Referring MD: Jimmy Boo MD Signal Intelligence Analyst: Manjit Gupta MD Symptoms: CHEST PAIN R07.89 Study Quality: Fair ECG Rhythm: Sinus Conclusions: - 1. Normal LV ejection fraction 55-60% 2. Trivial aortic regurgitation 3. Normal RV systolic pressure 4. No gross pericardial effusion Findings Procedure Information The quality of the study was technically difficult. The study quality is limited by lung artifact. Left Ventricle Normal left ventricular size, thickness, and systolic function. The visually estimated ejection fraction is between 55-60%. Spectral Doppler is indicative of a normal filling pattern. Right Ventricle Normal right ventricular cavity size and systolic function. Atria Both atria are normal in size. There is no evidence of interatrial shunt. Aortic Valve Normal aortic valve structure and function. There is no aortic valve stenosis. There is trace (trivial) aortic valve regurgitation. Mitral Valve There is mild anterior and posterior mitral leaflet thickening. There is trace mitral valve regurgitation. There is no mitral valve stenosis. Pulmonic Valve The pulmonic valve is likely normal. There is trace pulmonic valve regurgitation. Tricuspid Valve Normal tricuspid valve structure. There is trace tricuspid valve regurgitation. The right ventricular systolic pressure is normal. The right ventricular systolic pressure is 16 mmHg. Normal right atrial pressure. There is no evidence of pulmonary hypertension. Great Vessels All visible segments of the aorta are normal in size. The pulmonary artery was not well visualized. Venous The inferior vena cava is normal in size and collapses greater than 50% with inspiration. Pericardium/Pleural There is no evidence of pericardial effusion. Prior Study Comparison No significant change compared to prior study dated: 02/15/2022. Measurements 2D Linear Measurements IVSd: 0.84 0.6-0.9/0.6-1.0 cm LVIDd: 3.93 3.9-5.3/4.2-5.9 cm LVIDd Index: 2.66 2.4-3.2/2.2-3.1 cm/m2 LVIDs: 2.95 2.0-3.6 cm LVPWd: 0.52 0.7-1.1 cm LA Diam: 2.80 2.7-3.8/3.0-4.0 cm LAIDs Index: 1.89 1.5-2.3 cm/m2 LV Mass: 91.01 67-162/88-224 g LV Mass Index: 61.49 43-95/49-115 g/m2 LVOT Diam: 1.80 3.0+(-)1.3 cm 2D Systolic Function EF 4C: 58.50 >55% EF 2C: 60.20 >55% EF BiP: 58.70 >55% Mitral Valve MV Pk E: 0.57 MV PK A: 0.69 MV Decel Time: 157.00 E/A: 0.80 E'Lateral: 9.36 E'Medial: 7.40 E/E' Med: 7.70 E/E' Lat: 6.10 PHT: 46.00 MVA PHT: 4.78 Decel [place]: 3.62 Aortic Valve AoV Pk Michael: 1.17 AoV Pk Grad: 5.00 PATEL: 1.90 LVOT LVOT Pk Michael: 0.90 LVOT Mn Michael: 0.63 LVOT VTI: 0.20 LVOT Pk Grad: 3.00 LVOT Mn Grad: 2.00 LVOT Diam: 1.80 LVOT Area: 2.54 Diastolic Function MV Pk E: 0.57 MV Pk A: 0.69 E/A: 0.80 E'Medial: 7.40 E/E' Med: 7.70 E' Laterial: 9.36 E/E' Lat: 6.10 Right Ventricle TAPSE (mm): 16.10 TVS' Michael: 10.00 Tricuspid Valve TR Pk Michael: 1.81 TR Pk Grad: 13.00 RA Press: 3.00 RVSP: 16.00 Great Vessels Aorta Sinus of Valsalva: 2.40 2.0-3.5 cm Ao Asc: 2.40 2.1-3.4 cm Ao Arch: 2.80 Ao Desc: 1.90 Pulmonary Veins Pulm Vein S/D 1.00 Pulmonary Valve PV Pk Michael: 0.84 Peak PV Grad: 3.00 Updated in Other Vendor System with Status of Final Manjit Gupta MD electronically signed on 06/10/2023 12:22:18 PM with status of Final
--- NOTE | 2023-06-09 13:54 | HM_ITS ---
Conclusion: 1. Patient was monitored for total period of 17 hours 2. Baseline was normal sinus rhythm with average heart of 75 beats per minute 3. No significant pauses or arrhythmias noted 4. No patient reported symptoms MTDD
== END ==
LOC: HO.CARD 13:48
PROVIDERS: PCP Internal Medicine; Visit Provider Internal Medicine
DX: R07.89 Other chest pain (principal); R00.2 Palpitations
CPT/HCPCS: 93225; 93306

== ENCOUNTER → 2023-06-09 13:52 | Outpatient (BNV) | payer OTHER, SELFPAY | PROVIDERS: PCP Internal Medicine; Visit Provider Internal Medicine Cardiovascular Disease | DX: I34.89 Other nonrheumatic mitral valve disorders (principal); R07.89 Other chest pain | CPT/HCPCS: 93227; 93306 ==

== ENCOUNTER 2023-06-21 | Outpatient (REF) | payer OTHER, SELFPAY ==
[2023-06-22 16:47] LABS: CT PCR NOT DETECTED (Not Detect.); NG PCR NOT DETECTED (Not Detect.)
== END 2023-06-21 00:01 | disposition home or self-care (01) ==
LOC: HO.HHCLNP
PROVIDERS: Visit Provider Nurse Practitioner Primary Care
DX: R31.9 Hematuria, unspecified (principal); N35.92 Unspecified urethral stricture, female; Z20.2 Contact with and (suspected) exposure to infections with a predominantly sexual mode of transmission
CPT/HCPCS: 0353U; 87086

== ENCOUNTER 2023-06-22 12:30 | Outpatient (REF) | payer OTHER, SELFPAY | END 2023-06-22 12:31 | disposition home or self-care (01) | LOC: HO.HHCLNP 12:30 | PROVIDERS: Visit Provider Nurse Practitioner Primary Care | DX: Z13.89 Encounter for screening for other disorder (principal) ==

== ENCOUNTER 2023-07-01 16:19 | Outpatient (REF) | payer OTHER, SELFPAY ==
[2023-07-01 17:21] LABS: MANUAL DIFF FLAG NO
[2023-07-01 17:26] LABS: Basophils Absolute Auto 0.1 X10*3/uL (0.0-0.2); Eosinophils Absolute Auto 0.2 X10*3/uL (0.0-0.4); Eosinophils Percent Auto 4.1 % (0-4); Hematocrit 41.3 % (37.0-47.0); Hemoglobin 13.7 g/dl (12.0-16.0); Imm Gran Abs Auto 0.02 X10*3/uL (0.00-0.03); Imm Gran Pct Auto 0.3 % (0.0-0.4); Lymphocytes Absolute Auto 1.6 X10*3/uL (1.2-4.9); Lymphocytes Percent Auto 27.2 % (20-40); Mean Corpuscular HGB Conc 33.2 g/dl (31.0-35.0); Mean Corpuscular Hemoglobin 31.5 pg (27.0-33.0); Mean Corpuscular Volume 94.9 fL (80.0-98.0); Mean Platelet Volume 10.2 fL (9.4-12.3); Monocytes Absolute Auto 0.6 X10*3/uL (0.1-1.2); Monocytes Percent Auto 9.4 % (2-11); Neutrophils Absolute Auto 3.4 x10*3/uL (2.0-8.3); Platelet Count 246 X10*3/uL (160-400); Red Blood Count 4.35 X10*6/uL (4.20-5.50); Red Cell Distribution Width 12.8 % (11.0-16.0); White Blood Count 5.9 X10*3/uL (4.8-10.8)
[2023-07-01 18:54] LABS: TSH reflex Free T4 2.75 uIU/mL (0.32-4.0)
== END 2023-07-01 16:20 | disposition home or self-care (01) ==
LOC: HO.CHCLDS 16:19
PROVIDERS: Visit Provider Internal Medicine
DX: R53.83 Other fatigue (principal); R10.31 Right lower quadrant pain
CPT/HCPCS: 36415; 84443; 85025

== ENCOUNTER 2023-08-15 13:39 | Outpatient (AMB) | payer OTHER, SELFPAY ==
[2023-08-15 14:00] VITALS: BP 120/84; PULSE 76; BMI 23.2
--- NOTE | 2023-08-15 14:00 | MHC.OFFVIS ---
Vital Signs 08/15/23 14:00 Height 4 ft 11 in Weight 114 lb 10.246 oz BMI 23.2 BP 120/84 Blood Pressure Location Lt brachial Position Sitting Pulse 76 Intake Visit Reasons: T[employer]/ Beauzile/ abn echo Intake Note: New patient c/o sob and palpitations with activity since second covid shot had echo and holter Environmental Analyst Required: No Allergies Iodinated Contrast Media [IV CONTRAST] Allergy (Severe, Verified 01/24/23 09:34) (ULTRAVIST) TINGLING OF LIPS AND SWELLING LIPS AND EYES adhesive tape [ADHESIVE TAPE] Allergy (Intermediate, Verified 01/24/23 09:34) BLISTERS tamoxifen [TAMOXIFEN] Allergy (Mild, Verified 01/24/23:34) GI UPSET Sulfa (Sulfonamide Antibiotics) [SULFA (SULFONAMIDE ANTIBIOTICS)] Allergy (Unknown, Verified 01/24/23 09:34) UNKNOWN bee pollen [bee stings] Allergy (Verified 01/24/23:34) Swelling Medication List - Last Reconciled 08/15/23 by Manjit Gupta MD zolpidem 5 mg PO BEDTIME PRN HPI Comments Details: Lakisha was referred here for exertional shortness of breath evaluation. She is a 58-year-old female who is concerned about cardiovascular disease as a twin sister at age of 52 suddenly in her sleep. Prior to that she says she was complaining of chest pain although no workup was performed as per her. Her older brother has congestive heart failure of unclear etiology. One of her older sister as leaky valve. She for her symptoms exertional shortness of breath went on to have a echocardiogram last month which predominantly showed trivial aortic regurgitation otherwise normal echocardiogram. Trivial aortic regurgitation is not a significant finding. However she remains to have exertional shortness of breath. She says symptoms started when she got her 2nd COVID shot when she suddenly felt lightheaded and weird in her head and then since then she has been having exertional shortness of breath. As a child she has been exposed to passive smoking although she denies any significant wheezing. She denies any history of emphysema or COPD. She denies any other prior cardiovascular history. Her lipids, last LDL is 118 mg/dL. She has no history of hypertension. She denies any orthopnea, PND, leg edema. When she says she works out she gets short of breath and associated rapid heart rate. Because of the palpitation she underwent a Holter monitor in June which also did not show any significant arrhythmias with average heart rate of 75 beats per minute [facility] Medical History Breast cancer History of right breast cancer Hypothyroid Multiple sclerosis Seizure Dyspnea on exertion Palpitations Asthma Subcutaneous mass Interstitial cystitis Surgical History Hx of elbow surgery Hx of rotator cuff surgery History of cystoscopy History of excision of mass (06/07/18) History of colonoscopy (06/2016) History of lumpectomy of right breast History of right breast biopsy History of tubal ligation History of ear surgery Family History Mother Colon cancer Father Bone cancer Lung cancer Brother Cancer of unknown origin Sister Leaky heart valve Brother CHF (congestive heart failure) Social History Patient Tobacco Use Status: Former Tobacco user Quit Date: 1994 Tobacco use type: Cigarette Advance Directives Date on File: 09/13/14 Current occupational status: disabled Current occupation: rt hand Review of Systems Const Denies chills, Denies daytime sleepiness, Denies fatigue, Denies fever(s), Denies frequent falls, Denies poor appetite, Denies snoring, Denies stops breathing during sleep, Denies weakness, Denies weight gain and Denies weight loss Eyes Denies loss of vision ENT Denies dizziness and Denies hearing loss Card Reports chest pain, Denies claudication, Denies leg edema, Denies lightheadedness, Reports palpitations, Reports dyspnea, Reports dyspnea on exertion and Denies orthopnea Resp Denies cough, Denies excessive phlegm production, Reports dyspnea, Reports dyspnea on exertion, Denies snoring and Denies wheezing GI Denies abdominal pain, Denies hematochezia, Denies change in bowel habits, Denies nausea and Denies vomiting Denies urinary frequency and Denies dysuria Musc Denies arthralgias, Denies muscle weakness, Denies numbness and Denies other (frequent falls) Skin/Breast Denies nail changes and Denies rash Neuro Denies Abnormal speech present, Denies dizziness, Denies frequent falls, Denies loss of vision, Denies memory loss, Denies numbness and Denies weakness Psych Denies depression and Denies memory loss Endo Denies fatigue and Reports palpitations [place]/Lymph Reports easy bruising and Reports other (anemia) Aller/Immun Denies wheezing Physical Exam Vital Signs: Last Vital Signs Pulse 76 08/15/23 14:00 BP 120/84 08/15/23 14:00 BMI result Body Mass Index 23.2 Const General: cooperative, comfortable, no acute distress, alert, awake and Physically active Nutritional Appearance: thin Orientation/consciousness: patient oriented x3 Limitations: no limitations HEENT Head: Yes normocephalic and Yes atraumatic Neck Neck: Yes trachea midline, Yes supple and Yes no JVD Resp Effort & Inspection: normal respiratory effort Auscultation: clear to auscultation bilaterally Cardio Jugular venous distension: no JVD Palpation: normal PMI Rate: regular rate Rhythm: regular rhythm Heart sounds: S1 normal heart sound present, S2 normal heart sound present, no click, no gallops, no murmurs and no rubs GI Auscultation: normal bowel sounds Skin General skin exam: no rashes or lesions noted Neuro General: patient oriented x3 and no focal motor deficits Speech: No Abnormal speech present Extrem General: Yes no clubbing, cyanosis or edema Office Procedures EKG Details: EKG shows normal sinus rhythm with normal EKG [id number]-[id number], Complete Assessment & Plan Assessment & Plan (1) SOB (shortness of breath) on exertion: Code(s): R06.02 - Shortness of breath Category: Medical Plan: Patient with significant exertional shortness of breath with possible family history of premature coronary artery disease/sudden cardiac that with prior exposure to smoking with no other major risk factors. I would suggest her to undergo stress echocardiogram to evaluate for myocardial ischemia. This will also evaluate for exercise-induced diastolic dysfunction pulmonary hypertension. If stress echocardiogram is within normal limits consider pulmonary workup. For further risk stratification as suggest her to undergo coronary calcium score to assess for presence of atherosclerosis that may guide further treatment for her lipids. She already had a Holter monitor and she does not require a repeat Holter monitor at this point in time. It is possible that the symptoms are related to anxiety. Will follow up in the clinic in 6 weeks time, sooner p.r.n.. Thank you for allowing me to partake in her care Orders: Orders CA echo stress exercise Today R06.02 - Shortness of breath CT Coronary Calcium Score 4 Weeks R06.02 - Shortness of breath Coding Level of Care Code New Pt Level 4 (11303) Diagnoses SOB (shortness of breath) on exertion R06.02 CPT Codes EKG - CPT: 45781-Xbvywosefvrjultna, Complete ([id number])
== END 2023-08-15 14:35 | disposition home or self-care (01) ==
PROVIDERS: PCP Internal Medicine; Visit Provider Internal Medicine Cardiovascular Disease
DX: R06.02 Shortness of breath (principal)
CPT/HCPCS: 93010; 99214

== ENCOUNTER → 2023-08-15 13:39 | Outpatient (BNVA) | payer OTHER, SELFPAY | PROVIDERS: PCP Internal Medicine; Visit Provider Internal Medicine Cardiovascular Disease | DX: R06.02 Shortness of breath (principal) | CPT/HCPCS: 93005; 99212 ==

== ENCOUNTER 2023-09-07 13:47 | Outpatient (REF) | payer OTHER, SELFPAY ==
--- NOTE | ~2023-09-07 | CT_ITS ---
EXAMINATION: CT ABDOMEN AND PELVIS WITH CONTRAST CLINICAL INFORMATION: 58-year-old female with right lower quadrant abdominal pain for several months COMPARISON: CT abdomen from 12/06/2017 TECHNIQUE: Multidetector volumetric images were obtained from the superior aspect of the liver through the pubic symphysis following administration 85 mL of Omnipaque 350 intravenous contrast. Sagittal and coronal reformatted images were obtained on the technologist's workstation. Oral contrast: Administrated. This CT examination was performed using dose optimization techniques as appropriate, variously including the following: *Automated exposure control *Adjustment of mA and/or kV according to patient size (this includes techniques or standardized protocols for targeted exams where dose is matched to indication/reason for exam; i.e. extremities or head) *Use of iterative reconstruction technique DLP: 254 mGy-cm FINDINGS: LUNG BASES: The visualized lung bases are unremarkable. LIVER, GALLBLADDER, AND BILIARY TREE: The liver is normal in size, shape, and attenuation. No focal hepatic lesion or biliary ductal dilatation is present. Gallbladder contracted without obvious cholelithiasis PANCREAS: Unremarkable. SPLEEN: Unremarkable. ADRENAL GLANDS: Unremarkable. KIDNEYS AND URETERS: The kidneys are normal in size, shape, and attenuation. No hydronephrosis, hydroureter, or calculi seen. No perinephric stranding. BLADDER: Unremarkable. GASTROINTESTINAL TRACT: The small and large bowel are unremarkable. The appendix is unremarkable. ABDOMINAL WALL: No significant hernia is appreciated. LYMPH NODES: Normal. VASCULAR: Unremarkable. PELVIC VISCERA: Unremarkable. OSSEOUS STRUCTURES: Unremarkable. CT/CT abdomen pelvis w IV con IMPRESSION: No significant abnormality. Fleischner guidelines were followed.
[2023-09-07] MEDS: iohexoL 350 MG/ML 100 ML INFUS..BTL IV (17:14)
[2023-09-07] MEDS: Barium Sulfate Oral (Vanilla) 450 ML ORAL.SUSP 900 ML PO (17:15)
[2023-09-08 06:35] LABS: Creatinine POC 0.9 mg/dL (0.5-1.4); GFR POC > 60
== END 2023-09-07 13:48 | disposition home or self-care (01) ==
LOC: HO.CT 13:47
PROVIDERS: PCP Internal Medicine; Visit Provider Internal Medicine
DX: R10.31 Right lower quadrant pain (principal)
CPT/HCPCS: 74177; 82565; Q9967

== ENCOUNTER → 2023-09-19 10:46 | Outpatient (REF) | payer OTHER, SELFPAY ==
--- NOTE | 2023-09-19 10:52 | CA_ITS ---
Acquisition Time: 2023-09-19 11:27:09 Total Exercise Time: 00:06:31 Test Indications: Dyspnea Medications: Protocol: WATSON Max HR: 153 BPM 94% of Pred: 162 BPM Max BP: 134/070 mmHG Max Work Load: 7.8 METS Exercise stress test with exercise 6 min 31 sec of Watson protocol, achieving 94% MPHR, with mild sob, no chest discomfort, without arrythmia, with normotensive response to exercise, with borderline EKGs ( artifact present as well) noted inferiorly, V6 at peak exercise, then downsloping ST inferiolateral leads in recovery with gradual improvement back to normal. Echo images obtained by [employer] at rest and immediately post peak exercise. Definity contrast used. Test reviewed with Dr Cline. Referred By: Manjit Gupta Overread By: BRITTANEY FORREST
== END ==
LOC: HO.CARD 10:46
PROVIDERS: PCP Internal Medicine; Visit Provider Internal Medicine Cardiovascular Disease
DX: R06.02 Shortness of breath (principal)
CPT/HCPCS: 93350; Q9957

== ENCOUNTER → 2023-09-19 10:52 | Outpatient (BNV) | payer OTHER, SELFPAY | PROVIDERS: PCP Internal Medicine; Visit Provider Nurse Practitioner Family | DX: R06.02 Shortness of breath (principal); R94.31 Abnormal electrocardiogram [ECG] [EKG] | CPT/HCPCS: 93016; 93018; 93350; 93352 ==

== ENCOUNTER 2023-10-04 13:23 | Outpatient (AMB) | payer OTHER, SELFPAY ==
[2023-10-04 13:26] VITALS: BP 100/72; PULSE 85; BMI 23.0
--- NOTE | 2023-10-04 13:26 | A.OFFVIS_ITS ---
Vital Signs 10/04/23 13:26 Height 4 ft 11 in Weight 113 lb 12.136 oz BMI 23.0 BP 100/72 Blood Pressure Location Lt brachial Position Sitting Pulse 85 Pulse Source Pulse Oximeter Intake Visit Reasons: 2m follow up Conventions Assistant Required: No Allergies Iodinated Contrast Media [IV CONTRAST] Allergy (Severe, Verified 10/04/23 13:28) (ULTRAVIST) TINGLING OF LIPS AND SWELLING LIPS AND EYES adhesive tape [ADHESIVE TAPE] Allergy (Intermediate, Verified 10/04/23 13:28) BLISTERS tamoxifen [TAMOXIFEN] Allergy (Mild, Verified 10/04/23 13:28) GI UPSET Sulfa (Sulfonamide Antibiotics) [SULFA (SULFONAMIDE ANTIBIOTICS)] Allergy (Unknown, Verified 10/04/23 13:28) UNKNOWN bee pollen [bee stings] Allergy (Verified 10/04/23 13:) Swelling Medication List - Last Reconciled 10/04/23 by Johanny Kruger NP-C zolpidem 5 mg PO BEDTIME PRN HPI HPI 2m follow up: Details: Lakisha is a 58-year-old female with past medical history breast CA, twin sister who sudden in her sleep age 52, brother with Congestive heart failure, another sister with leaky heart valves who was recently evaluated for symptom of shortness of breath and heart palpitations. She underwent a stress echo and coronary calcium score and now presents for follow-up. Today she reports that she does have some shortness of breath with physical activity which has not changed in the recent months. She will get random pains in her chest, none brought on by physical activity. She believes her discomfort may be related to her prior breast cancer and treatment. She will feel her heart pounding fast at times and it causes her concern. No dizziness, presyncope, syncope, falls. No PND, orthopnea or edema. Anxious about her health and her heart. [facility] Medical History Breast cancer History of right breast cancer Hypothyroid Multiple sclerosis Seizure Dyspnea on exertion Palpitations Asthma Subcutaneous mass Interstitial cystitis Surgical History Hx of elbow surgery Hx of rotator cuff surgery History of cystoscopy History of excision of mass (03/06/19) History of colonoscopy (06/2016) History of lumpectomy of right breast History of right breast biopsy History of tubal ligation History of ear surgery Family History Mother Colon cancer Father Bone cancer Lung cancer Brother Cancer of unknown origin Sister Leaky heart valve Brother CHF (congestive heart failure) Social History Patient Tobacco Use Status: Former Tobacco user Tobacco use type: Cigarette Advance Directives Date on File: 09/13/14 Current occupational status: disabled Current occupation: rt hand Review of Systems Const All systems reviewed & are unremarkable except as noted in HPI and below ENT Denies dizziness Card Denies chest pain, Denies chest pain at rest, Denies chest pain with activity, Denies rapid heart rate, Denies pedal edema, Denies edema, Denies leg edema, Denies lightheadedness, Denies palpitations, Denies dyspnea, Denies dyspnea on exertion and Denies orthopnea Resp Denies cough, Denies dyspnea and Denies dyspnea on exertion GI Denies hematochezia and Denies change in stool character Musc Denies abnormal gait, Denies limited range of motion, Denies muscle cramps, Denies muscle weakness, Denies numbness, Denies radiating pain into limb, Denies stiffness and Denies tingling Neuro Denies abnormal gait, Denies dizziness, Denies numbness and Denies tingling Endo Denies palpitations Physical Exam Vital Signs: Last Vital Signs Pulse 85 10/04/23 13:26 BP 100/72 10/04/23 13:26 BMI result Body Mass Index 23.0 Const General: cooperative, healthy appearing, comfortable and no acute distress Orientation/consciousness: patient oriented x3 Neck Neck: Yes normal visual inspection and Yes no JVD Resp Effort & Inspection: normal respiratory effort Auscultation: clear to auscultation bilaterally, no crackles, no rales, no rhonchi and no wheezes Cardio Jugular venous distension: no JVD Rate: regular rate Rhythm: regular rhythm Heart sounds: S1 normal heart sound present, S2 normal heart sound present, no murmurs and no rubs Neuro General: patient oriented x3 Extrem General: Yes normal to inspection and No no pedal edema Psych Appearance: grossly normal Mental Status: mental status grossly normal Speech and movement: Normal speech and movement present Assessment & Plan Assessment & Plan (1) SOB (shortness of breath) on exertion: Code(s): R06.02 - Shortness of breath Category: Medical Plan: Report of some shortness of breath with physical activity. She denies any known history of asthma or COPD. Exposed to passive smoking as a child. Cardiac evaluation reveals echocardiogram done 06/09/2023 showing EF 55-60%, no significant valve abnormalities. Stress echocardiogram done 09/19/2023 with exercise 6.5 minutes, EKGs can not entirely exclude changes due to artifact, no echo evidence of ischemia. Coronary calcium score was done on 08/26/2023, calcium score 0. Test results reviewed with her in detail. No cardiac findings that contribute to her symptom of shortness of breath or atypical chest discomfort. She is very pleased to hear this finding. Informed her that she can see a counterintelligence analyst if her breathing continues to be a concern. Continue with physical activity as tolerated. True signs and symptoms of angina reviewed with her. Cardiology follow-up will be as needed. (2) Palpitations: Code(s): R00.2 - Palpitations Category: Medical Plan: Reported heart palpitations like her heart is beating fast at times especially during physical activity. Holter monitor done on 06/09/23 for 17 hours showed normal sinus rhythm with average heart rate 75, no significant pauses or arrhythmias noted. Her symptom of palpitation may be related to anxiety and/or deconditioning. Discussed the avoidance and reduction of caffeine needed beverages, dark chocolate. Reviewed good hydration, getting adequate rest. Increase physical activity as tolerated. She has ongoing concerns of heart palpitations she can notify this office and a cardiac event monitor can be ordered. Plan Time spent on chart review, documentation, interview and assessment Coding Level of Care Code Est Pt Level 3 (86267) Diagnoses SOB (shortness of breath) on exertion R06.02 Palpitations R00.2 Time Spent (min) 24
== END 2023-10-04 14:09 | disposition home or self-care (01) ==
PROVIDERS: PCP Internal Medicine; Visit Provider Nurse Practitioner Family
DX: R06.02 Shortness of breath (principal); R00.2 Palpitations
CPT/HCPCS: 99213

== ENCOUNTER → 2023-10-04 13:23 | Outpatient (BNVA) | payer OTHER, SELFPAY | PROVIDERS: PCP Internal Medicine; Visit Provider Nurse Practitioner Family | DX: R06.02 Shortness of breath (principal); R00.2 Palpitations | CPT/HCPCS: 99212 ==

== ENCOUNTER 2023-11-23 11:04 | Outpatient (REF) | payer OTHER, SELFPAY ==
[2023-11-23 14:35] LABS: Anion Gap 12 (12-20); Blood Urea Nitrogen 11 mg/dL (9-16); Calcium 10.3 mg/dL (8.4-10.2); Carbon Dioxide 31 mmol/L (22-29); Chloride 103 mmol/L (96-108); Estimated Glomerular Filt Rate > 60; Glucose Random 84 mg/dL (60-115); Potassium 4.4 mmol/L (3.3-5.1); Sodium 142 mmol/L (135-145)
[2023-11-23 15:15] LABS: Vitamin B12 548 pg/mL (200-900)
== END 2023-11-23 11:05 | disposition home or self-care (01) ==
LOC: HO.CHCLDS 11:04
PROVIDERS: Visit Provider Internal Medicine
DX: R07.89 Other chest pain (principal); R00.2 Palpitations; Z13.89 Encounter for screening for other disorder
CPT/HCPCS: 36415; 80048; 82607; 82746

== ENCOUNTER 2023-11-23 11:41 | Outpatient (REF) | payer OTHER, SELFPAY ==
--- NOTE | ~2023-11-23 | XR_ITS ---
EXAMINATION: XR FINGER, RIGHT CLINICAL INFORMATION: Chronic pain of right thumb COMPARISON: X-ray of the right thumb February 2019 TECHNIQUE: 3 views of the right thumb including AP view of the hand FINDINGS: There are marginal osteophytes and mild joint space narrowing indicative of mild to moderate osteoarthritis which is progressed compared to prior. The remaining bones joints and soft tissues are unremarkable. XR/XR finger RT min 2V IMPRESSION: Gvcy-ax-lijiziqx osteoarthritis of the first carpometacarpal joint with degenerative changes slightly progressed compared with February 2019 Electronically signed by: Kuldip Dill MD 11/27/2023 02:13 PM EDT
== END 2023-11-23 11:42 | disposition home or self-care (01) ==
LOC: HO.XRAY 11:41
PROVIDERS: PCP Internal Medicine; Visit Provider Internal Medicine
DX: M79.644 Pain in right finger(s) (principal); G89.29 Other chronic pain
CPT/HCPCS: 36415; 73140; 80048; 82607; 82746

== ENCOUNTER 2024-01-26 12:46 | Outpatient (AMB) | payer OTHER, SELFPAY ==
--- NOTE | 2024-01-26 13:07 | A.OFFVIS_ITS ---
Intake Visit Reasons: 1y follow up/PVR Intake Note: Patient presents today for a 1y follow-up/PVR Meds-NONE Allergies to Antibiotic- Sulfa Blood Thinner- None PVR- <34 mL'S TODAY'S PVR: 0ML'S Carbon Capture Power Plant Engineer Required: No Accompanied by: Self / Same As Patient Allergies Iodinated Contrast Media [IV CONTRAST] Allergy (Severe, Verified 01/26/24 13:09) (ULTRAVIST) TINGLING OF LIPS AND SWELLING LIPS AND EYES adhesive tape [ADHESIVE TAPE] Allergy (Intermediate, Verified 01/26/24 13:09) BLISTERS tamoxifen [TAMOXIFEN] Allergy (Mild, Verified 01/26/24 13:09) GI UPSET Sulfa (Sulfonamide Antibiotics) [SULFA (SULFONAMIDE ANTIBIOTICS)] Allergy (Unknown, Verified 01/26/24 13:09) UNKNOWN bee pollen [bee stings] Allergy (Verified 01/26/24 13:09) Swelling HPI Comments Details: 01/26/24--Lakisha is a 58-year-old female who presents today to the office for a follow-up. She is followed today for interstitical cystitis. Urinary urgency secondary to small capacity bladder, the patient is not interested in medications at this time. Diet modification IC diet. Will continue to monitor. Review of chart: 01/24/23?Lakisha is a 57-year-old female who presents today to the office for a follow-up. She is followed today for interstitical cystitis. She was last seen by me on 03/24/22.?She is a status post Cystoscopy hydrodistention done on 03/02/2022, f indings notable for glmoerulations and small bladder capacity 375 mL. She returned to the hospital for bladder pain and Walton catheter was placed for urinary retention and had an overnight stay for observation. In office follow-up she stated that her urinary symptoms of urgency had improved. She has been counselled on diet modifications to avoid dietary bladder irritants. Patient states that her urinary symptoms of urgency has improved at this time. Last visit: 03/24/22? -s/p cysto/hydro- 03/02/22--findings ++glomerulations, small bladder capacity post distension 375 mL. [facility] Medical History Breast cancer History of right breast cancer Hypothyroid Multiple sclerosis Seizure Dyspnea on exertion Palpitations Asthma Subcutaneous mass Interstitial cystitis Surgical History Hx of elbow surgery Hx of rotator cuff surgery History of cystoscopy History of excision of mass (06/07/18) History of colonoscopy (06/2016) History of lumpectomy of right breast History of right breast biopsy History of tubal ligation History of ear surgery Family History Mother Colon cancer Father Bone cancer Lung cancer Brother Cancer of unknown origin Sister Leaky heart valve Brother CHF (congestive heart failure) Social History Patient Tobacco Use Status: Former Tobacco user Tobacco use type: Cigarette Advance Directives Date on File: 09/13/14 Current occupational status: disabled Current occupation: rt hand Review of Systems Const All systems reviewed & are unremarkable except as noted in HPI and below Reports no additional complaints Eyes Reports no additional complaints ENT Reports no additional complaints Card Reports no additional complaints Resp Reports no additional complaints GI Reports no additional complaints Reports as per HPI Musc Reports no additional complaints Skin/Breast Reports system reviewed and no additional complaints, except as documented Neuro Reports no additional complaints Psych Reports no additional complaints Endo Reports no additional complaints [place]/Lymph Reports no additional complaints Aller/Immun Reports no additional complaints Office Procedures Post Void Residual Post Residual Void Post Void Residual (PVR): 0 60904-Vxro Void Residual by ultrasound Results AMB Urinalysis, Automated UA Leukoctes 0 Edmund/uL Last Edit by TOMA Alexander on 01/26/24 13:21 UA Nitrite Negative Last Edit by TOMA Alexander on 01/26/24 13:21 UA Urobilinogen 0.2 mg/dL Last Edit by TOMA Alexander on 01/26/24 13:2 1 UA Protein 0 mg/dL Last Edit by TOMA Alexander on 01/26/24 13:21 UA pH 6.0 Last Edit by TOMA Alexander on 01/26/24 13:21 UA Blood 10 Enoc/uL Last Edit by [facility] on 01/26/24 13:21 UA Specific [place] 1.030 Last Edit by TOMA Alexander on 01/26/24 13: 21 UA Ketone Negative Last Edit by TOMA Alexander on 01/26/24 13:21 UA Bilirubin 0 mg/dL Last Edit by TOMA Alexander on 01/26/24 13:21 UA Glucose 0 mg/dL Last Edit by TOMA Alexander on 01/26/24 13:21 Results Reviewed Results Reviewed: Laboratory Last Values Urine pH (Auto) 6.0 01/26/24 13:20 Specific [place] (Auto) 1.030 01/26/24 13:20 Urine Protein (Auto) 0 mg/dL 01/26/24 13:20 Glucose (UA)(Auto) 0 mg/dL 01/26/24 13:20 Urine Ketones (Auto) Negative 01/26/24 13:20 Urine Blood (Auto) 10 Enoc/uL 01/26/24 13:20 Urine Nitrite (Auto) Negative 01/26/24 13:20 Urine Bilirubin (Auto) 0 mg/dL 01/26/24 13:20 Urine Urobilinogen (Auto) 0.2 mg/dL 01/26/24 13:20 Leukocyte Esterase (Auto) 0 Edmund/uL 01/26/24 13:20 Procedure(s): CT abdomen pelvis w IV con CT ABDOMEN AND PELVIS WITH CONTRAST CLINICAL INFORMATION: 58-year-old female with right lower quadrant abdominal pain for several months COMPARISON: CT abdomen from 12/06/2017 TECHNIQUE: Multidetector volumetric images were obtained from the superior aspect of the liver through the pubic symphysis following administration 85 mL of Omnipaque 350 intravenous contrast. Sagittal and coronal reformatted images were obtained on the technologist's workstation. Oral contrast: Administrated. This CT examination was performed using dose optimization techniques as appropriate, variously including the following: *Automated exposure control *Adjustment of mA and/or kV according to patient size (this includes techniques or standardized protocols for targeted exams where dose is matched to indication/reason for exam; i.e. extremities or head) *Use of iterative reconstruction technique DLP: 254 mGy-cm FINDINGS: LUNG BASES: The visualized lung bases are unremarkable. LIVER, GALLBLADDER, AND BILIARY TREE: The liver is normal in size, shape, and attenuation. No focal hepatic lesion or biliary ductal dilatation is present. Gallbladder contracted without obvious cholelithiasis PANCREAS: Unremarkable. SPLEEN: Unremarkable. ADRENAL GLANDS: Unremarkable. KIDNEYS AND URETERS: The kidneys are normal in size, shape, and attenuation. No hydronephrosis, hydroureter, or calculi seen. No perinephric stranding. BLADDER: Unremarkable. GASTROINTESTINAL TRACT: The small and large bowel are unremarkable. The appendix is unremarkable. ABDOMINAL WALL: No significant hernia is appreciated. LYMPH NODES: Normal. VASCULAR: Unremarkable. PELVIC VISCERA: Unremarkable. OSSEOUS STRUCTURES: Unremarkable. IMPRESSION: No significant abnormality. Assessment & Plan Assessment & Plan (1) Interstitial cystitis: Code(s): N30.10 - Interstitial cystitis (chronic) without hematuria Category: Medical (2) Urinary urgency: Code(s): R39.15 - Urgency of urination Category: Medical Plan IC - Diet modification Will continue to monitor. Orders: Orders AMB Urinalysis Automated 01/26/24 Z13.9 - Encounter for screening, unspecified Patient Instructions: The patient had an opportunity to ask questions regarding treatment plan. The patient expressed understanding and agreement with the above treatment plan. The patient is aware they should contact our office by phone for worsening of their current condition or the appearance of new symptoms. Compliance is encouraged with any medications and followup testing that is ordered. It is a privilege to be allowed the opportunity to participate in the urologic care of your patient. If you have any questions or concerns regarding treatment for the above conditions please do not hesitate to contact me. The office telephone contact is [phone]. This note is constructed in part using voice recognition software. While every effort has been made to ensure accuracy pantry cook errors may have been included. Yours sincerely, Deann Tirado MD Coding Level of Care Code Est Pt Level 3 (60773) Diagnoses Interstitial cystitis N30.10 Urinary urgency R39.15 CPT Codes Post Residual Void - PVR CPT Code: 87825-Eevq Void Residual by ultrasound ([id number])
== END 2024-01-26 13:53 | disposition home or self-care (01) ==
PROVIDERS: PCP Internal Medicine; Visit Provider Urology
DX: N30.10 Interstitial cystitis (chronic) without hematuria (principal); R39.15 Urgency of urination
CPT/HCPCS: 99213

== ENCOUNTER → 2024-01-26 12:46 | Outpatient (BNVA) | payer OTHER, SELFPAY | PROVIDERS: PCP Internal Medicine; Visit Provider Urology | DX: N30.10 Interstitial cystitis (chronic) without hematuria (principal); R39.15 Urgency of urination | CPT/HCPCS: 51798; 81003; 99212 ==

== ENCOUNTER 2024-02-01 16:45 | Outpatient (REF) | payer OTHER, SELFPAY ==
[2024-02-01 18:02] LABS: Erythrocyte Sedimentation Rate 6 MM/HR (0-20)
[2024-02-01 18:19] LABS: Anion Gap 12 (12-20); Blood Urea Nitrogen 12 mg/dL (9-16); Calcium 9.6 mg/dL (8.4-10.2); Carbon Dioxide 29 mmol/L (22-29); Chloride 103 mmol/L (96-108); Estimated Glomerular Filt Rate > 60; Glucose Random 118 mg/dL (60-115); Potassium 4.3 mmol/L (3.3-5.1); Sodium 140 mmol/L (135-145)
[2024-02-02 22:29] LABS: Lyme Abs Screen <0.90 index
== END 2024-02-01 16:46 | disposition home or self-care (01) ==
LOC: HO.LAB 16:45
PROVIDERS: PCP Internal Medicine; Visit Provider Internal Medicine
DX: G44.89 Other headache syndrome (principal); R53.1 Weakness
CPT/HCPCS: 36415; 80048; 84443; 85652; 86617; 86618

== ENCOUNTER 2024-03-12 18:48 | Outpatient (REF) | payer OTHER, SELFPAY | END 2024-03-12 18:49 | disposition home or self-care (01) | LOC: HO.MRI 18:48 | PROVIDERS: PCP Internal Medicine; Visit Provider Internal Medicine | DX: G35 Multiple sclerosis (principal) | CPT/HCPCS: 70551 ==

== ENCOUNTER 2024-04-25 09:17 | Outpatient (REF) | payer OTHER, SELFPAY ==
--- OUTSIDE RECORDS SUMMARY | 2024-04-25 09:47 | XMS_ITS | Patient Health Record ---
Author Organization [facility] Address [address] [place] [address] Care Team Providers Care Operational Review Sergeant Name Role Phone Jimmy Boo M.D. Primary Care Provider Un available Keyshawn Lopez Unavailable [phone] ALLERGIES Allergen (clinical drug ingredient) Drug/Non Drug Allergy documented on EMR Reaction Allergy Type Onset Date Status topiramate Topamax Unknown Drug Allergy Active REASON FOR REFERRAL No Information MEDICATIONS Medication SIG (Take, Route, Frequency, Duration) Notes Start Date End Date Status Ambien 5 MG 1 tablet at bedtime Orally Once a day Active MiraLax (colon prep) 17 GM/SCOOP 1 238Gm bottle mixed with Gatorade or Crystal Light Orally begin at 5:00 p.m. the day before the procedure for 1 day 03/27/2022 Active Dulcolax (colon prep) 5 MG take at 3:00 p.m and 7:00p.m. Orally two tablets twice a day for one day for 1 day 03/27/2022 Active IMMUNIZATIONS Vaccine Route Administration Date Status Comme nts Influenza Unknown 03/17/2022 Refused SOCIAL HISTORY Sex Assigned At : Social History Observation Description Sex Assigned At Unknown PROBLEMS Problem Type ICD Code Onset Dates Problem Status W/U Status Risk SNOMED Code Notes Problem Encounter for screening for malignant neoplasm of colon (Z12.11) Active confirmed 833970692 Problem Encounter for screening for malignant neoplasm of rectum (Z12.12) Active confirmed Screening fo r malignant neoplasm of rectum (904751924) Problem Family history of colon cancer (Z80.0) Active confirmed 964452116 Problem Constipation, unspecified constipation type (K59.00) Active confirmed 62508862 Problem Diverticulosis of colon (K57.30) Active confirmed Diverticulosi s of colon (205451772) PLAN OF TREATMENT Future Test Test Name Order Date COLONOSCOPY 12/19/2015 COLONOSCOPY 03/17/2022 Insurance Providers Payer Name Payer Address Payer Phone Subscriber Number Group Number Insured Name Patient Relationship to Insured Coverage Start Date Coverage End Date [facility] [address] [place] [phone] [id number] PATRICIA DOOLEY Self - patient is the insured MEDICAL (GENERAL) HISTORY Medical History History ICD Code Epilepsy--off seizure meds Multiple sclerosis Vertigo Denies MA,DM,CVA,Lung disease,renal dise ase Hx of breast cancer 2011--ri ght--lumpectomy, XRT , chemo--sees Dr. Samuel at [facility] x 3 Neg. colonoscopy in 2005, 06/2011, and 2016 Surgical History Surgery Date(Month/Year) Urethral diverticulum Right arm surgery BTL Exploratory laparoscopy Ear surgery for tubes Shoulder surgery--right shoulder 09/2015 Right breast cancer --lumpectomy Bone removed from left thumb Carpal tunnel on the left Cystoscopy 02/2022
--- OUTSIDE RECORDS SUMMARY | 2024-04-25 09:48 | XMS_ITS | Encounter Summary ---
Author Organization [employer] Address [address] [place] [address] Care Team Providers Care Crepe Laminator Operator Name Role Phone Jimmy Boo MD Primary Care Provider [phone] Encounter Details Date Type Department Care Team ([facility] st Contact Info) Description 11/28/2023 Orders Only [facility] PEDS [address] [place] [place], [place] [id number] Jimmy Boo MD [address] [place] [address] Social History Tobacco Use Types Packs/Day Years Used Date Smoking Tobacco: Former Cigarettes Passive Smoke Exposure: Past Smokeless Tobacco: Never Alcohol Use Standard Drinks/Week Comments Defer 0 (1 standard drink = 0.6 oz pur e alcohol) Housing Stability Answer Date Recorded What is your housing situation today? I have margothbryan olvera 08/23/[address] you li ve. Do you have problems with any of the following? None of the above 08/23/2023 Food Insecurity Answer Date Recorded Within the past 12 months, y ou worried that your food would run out before you got money to buy more: Never True 08/23/2023 Within the past 12 months,th e food you bought just didn't last and you didn't have enough money to get more: Never True Transportation Answer Date Recorded In the past 12 months, has l ack of transportation kept you from medical appts, meetings, work or from getting things needed for daily living? No 08/23/2023 Utilities Answer Date Recorded In the past 12 months, has t he Amitive, gas, oil or water ETC Education threatened to shut off services in your home? No 08/23/2023 Comments No Sex and Gender Information Value Date Recorded Sex Assigned at Female 02/01/2022 10:22 AM EDT Legal Sex Female 10:22 AM EDT Gender Identity Female 02/01/2022 10:22 AM EDT Sexual Orientation Straight 02/01/2022 10 :22 AM EDT documented as of this encounter Plan of Treatment Upcoming Encounters Date Type Department Care Team (Late st Contact Info) Description 06/04/2024 1:45 PM EST Office Visit [facility] & PEDS [address] [place] [address] Jimmy Boo MD [address] [place] [address] documented as of this encounter Visit Diagnoses Not on filedocumented in this encounter Care Teams Crepe Laminator Operator Relationship Specialty Start Date End Date Jimmy Boo MD [address] [place] [address] PCP - General Internal Medicine 05/03/13 documented as of this encounter
--- OUTSIDE RECORDS SUMMARY | 2024-04-25 09:48 | XMS_ITS | Encounter Summary ---
Author Organization [employer] Address [address] [place] [address] Care Team Providers Care Financial Services Auditor Name Role Phone Jimmy Boo MD Primary Care Provider [phone] Reason for Visit * Reason Onset Date Comments Med Refill 03/29/2024 Encounter Details Date Type Department Care Team ([facility] Contact Info) Description 03/29/2024 Refill [facility] [address] [place] [address] Jimmy Boo MD [address] [place] [address] Primary insomnia Social History Tobacco Use Types Packs/Day Years Used Date Smoking Tobacco: Former Cigarettes Passive Smoke Exposure: Past Smokeless Tobacco: Never Alcohol Use Standard Drinks/Week Comments Defer 0 (1 standard drink = 0.6 oz pur e alcohol) Housing Stability Answer Date Recorded What is your housing situation today? I have margoth olvera 08/23/[address] you [...] the past 12 months, has t he electric, gas, oil or water company threatened to shut off services in your home? No 08/23/2023 Comments No Sex and Gender Information Value Date Recorded Sex Assigned at Female 02/01/2022 10:22 AM EDT Legal Sex Female 10:22 AM EDT Gender Identity Female 02/01/2022 10:22 AM EDT Sexual Orientation Straight 02/01/2022 10 :22 AM EDT documented as of this encounter Miscellaneous Notes * Telephone Encounter - Yisel Bradshaw LPN - 03/29/2024 9:07 AM EST LEATHER DRESSER checked 03/29/24. Last seen 03/08/24. * Telephone Encounter - Bradley Mccarthy - 03/29/2024 8:58 AM EST TC from pt requesting medication refill. Medications needing refill : zolpidem (Ambien) 10 MG tablet To be sent to: [facility]/pharmacy #[id number] [place] - [address] [place] [address] documented in this encounter Plan of Treatment Upcoming Encounters Date Type Department Care Team (Late st Contact Info) Description 06/04/2024 1:45 PM EST Office Visit [facility] [address] [place] [address] Jimmy Boo MD [address] [place] [address] documented as of this encounter Visit Diagnoses Diagnosis Primary insomnia Persistent disorder of initiating or maintaining sleep documented in this encounter Care Teams Financial Services Auditor Relationship Specialty Start Date End Date Jimmy Boo MD [address] [place] [address] PCP - General Internal Medicine 05/03/13 documented as of this encounter
--- OUTSIDE RECORDS SUMMARY | 2024-04-25 09:48 | XMS_ITS | Encounter Summary ---
Author Organization [employer] Address [address] 7t [place] [address] Care Team Providers Care Rivet Hole Puncher Name Role Phone Jimmy Boo MD Primary Care Provider [phone] Reason for Visit * Reason Comments Med Refill Encounter Details Date Type Department Care Team ([facility] Contact Info) Description 11/03/2023 Refill [facility] CHC ADULT DENTAL [address] [place] [address] Luis Guzman DDS [address] [place] [address] Social History Tobacco Use Types Packs/Day Years [...] encounter Miscellaneous Notes * Telephone Encounter - Luis Guzman DDS - 11/03/2023 4:11 PM EDT Approving, but needs appt for additional refills. documented in this encounter Plan of Treatment Upcoming Encounters Date Type Department Care Team (Late st Contact Info) Description 06/04/2024 1:45 PM EST Office Visit [facility] MED & PEDS [address] [place] [address] Jimmy Boo MD [address] [place] [address] documented as of this encounter Visit Diagnoses Not on filedocumented in this encounter Care Teams Rivet Hole Puncher Relationship Specialty Start Date End Date Jimmy Boo MD [address] [place] [address] PCP - General Internal Medicine 05/03/13 documented as of this encounter
--- OUTSIDE RECORDS SUMMARY | 2024-04-25 09:48 | XMS_ITS | Encounter Summary ---
Author Organization [employer] Address [address] [facility] 7t [place] [address] Care Team Providers Care Home Health Care Worker Name Role Phone Jimmy Boo MD Primary Care Provider [phone] Reason for Visit * Reason Onset Date Comments FYI 03/29/2024 Encounter Details Date Type Department Care Team ([facility] Contact Info) Description 03/29/2024 Telephone [facility] MEDICINE [address] [place] [address] Jimmy Boo MD [address] [place], [place] [phone] FYI Social History Tobacco Use Types Packs/Day Years [...] past 12 months, has t he electric, Ready, oil or water [employer] threatened to shut off services in your home? No 08/23/2023 Comments No Sex and Gender Information Value Date Recorded Sex Assigned at Female 02/01/2022 10:22 AM EDT Legal Sex Female 10:22 AM EDT Gender Identity Female 02/01/2022 10:22 AM EDT Sexual Orientation Straight 02/01/2022 10 :22 AM EDT documented as of this encounter Miscellaneous Notes * Telephone Encounter - Delfina Jacob LPN - 03/29/2024 9:51 AM EST Triage call returned to patient who called with complaints of leg pain. Patient reports testing + COVID on Tuesday onset of illness not feeling well on Tuesday . Had chills and felt feverish but no temp recorded. Chief complaint today is pain in legs that started in right leg and now includes left. Reports throbbong pain like a toothache Patient has [facility] feels slightly better overall but legs are very painful. No redness or swelling of legs at time of call. Disposition reviewed and patient in agreement with plan. INGRID/ today at 11:15am. Patient with CCA but declioned visit at this time. Protocol Used: COVID-19 - Diagnosed or Suspected (Adult) Protocol-Based Disposition: Discuss with PCP and Callback by Nurse within 1 Hour Video visit offered and caller accepted Positive Triage Question: * HIGH RISK patient (e.g., weak immune system, age > 64 years, obesity with BMI of 30 or higher,, chronic lung disease) and COVID symptoms (e.g., cough, fever) (Exceptions: Already seen by doctor or CATHETERIZATION LABORATORY TECHNICIAN/PA and no new or worsening symptoms.) * All higher-acuity triage questions were negative Care Advice Discussed: * General Care Advice for COVID-19 Symptoms * Pain and Fever Medicines * Reasons To Call Back - Chest pain or difficulty breathing occurs - Cough or other symptoms last more than 3 weeks - You become worse * COVID-19 - Symptoms * COVID-19 - How to Protect Others - When You Are Sick With COVID-19 * Reasons To Call Back - You have more questions * Stay Away From Others in Your Home * Telephone Encounter - Bradley Mccarthy - 03/29/2024 9:05 AM EST Symptom: Leg Pain - Not From Injury Outcome: Schedule an urgent appointment (within 1 hour) or talk to a nurse or provider soon Reason: Severe pain now The caller accepted this outcome. documented in this encounter Plan of Treatment Upcoming Encounters Date Type Department Care Team (Late st Contact Info) Description 06/04/2024 1:45 PM EST Office Visit [facility] CHC MED & PEDS [address] [place] [address] Jimmy Boo MD [address] [place] [address] documented as of this encounter Visit Diagnoses Not on filedocumented in this encounter Care Teams Home Health Care Worker Relationship Specialty Start Date End Date Jimmy Boo MD [address] [place] [address] PCP - General Internal Medicine 05/03/13 documented as of this encounter
--- OUTSIDE RECORDS SUMMARY | 2024-04-25 09:48 | XMS_ITS | Encounter Summary ---
Author Organization [employer] Address [address] [facility] 7t [place] [address] Care Team Providers Care Tube Cutter Operator Name Role Phone Jimmy Boo MD Primary Care Provider [phone] Reason for Visit * Reason Comments Med Refill Encounter Details Date Type Department Care Team ([facility] st Contact Info) Description 12/29/2023 Refill [facility] MEDICINE [address] [place], [place] [phone] Jimmy Boo MD [address] [place] [address] Primary insomnia Social History Tobacco Use Types [...] Description 06/04/2024 1:45 PM EST Office Visit [facility] MED & PEDS [address] [place] [address] Jimmy Boo MD [address] [place] [address] documented as of this encounter Visit Diagnoses Diagnosis Primary insomnia Persistent disorder of initiating or maintaining sleep documented in this encounter Care Teams Tube Cutter Operator Relationship Specialty Start Date End Date Jimmy Boo MD [address] [place] [address] PCP - General Internal Medicine 05/03/13 documented as of this encounter
--- OUTSIDE RECORDS SUMMARY | 2024-04-25 09:48 | XMS_ITS | Encounter Summary ---
Author Organization [employer] Address [address] [facility] 7t [place] [address] Care Team Providers Care Pearl Glue Drier Name Role Phone Jimmy Boo MD Primary Care Provider [phone] Encounter Details Date Type Department Care Team ([facility] st Contact Info) Description 10/24/2023 Orders Only [facility] CHC MED & PEDS [address] [place], [place] [phone] Jimmy Boo MD [address] [place] [address] Herpes zoster without complication (Primary Dx) Social History Tobacco Use Types Packs/Day Years [...] t he electric, gas, oil or water [employer] threatened to shut off services in your home? No 08/23/2023 Comments No Sex and Gender Information Value Date Recorded Sex Assigned at Female 02/01/2022 10:22 AM EDT Legal Sex Female 10:22 AM EDT Gender Identity Female 02/01/2022 10:22 AM EDT Sexual Orientation Straight 02/01/2022 10 :22 AM EDT documented as of this encounter Plan of Treatment Upcoming Encounters Date Type Department Care Team ([facility] st Contact Info) Description 06/04/2024 1:45 PM EST Office Visit [facility] CHC MED & PEDS [address] [place] [address] Jimmy Boo MD [address] [place] [address] documented as of this encounter Procedures Procedure Name Priority Date/Time Associated Diagnosis Comments XR FINGERS 2+ VIEWS RIGHT Routine 11/23/2023 11:55 AM EDT documented in this encounter Results * XR Fingers 2+ Views Right (11/23/2023 11:55 AM EDT) Anatomical Region Laterality Modality Upper Extremities, Fingers Right Radio graphic Imaging 11/23/2023 11:5 5 AM EDT Narrative 11/27/2023 2:15 PM EDT ? [facility] ?[address] ?[place] [address] ?XRay Report ? Signed ? Patient: Nadiya,Lakisha Alonzo ?MR#: [id number] ?? [id number] ? : 1965 ?Acct:[id number] ? Age/Sex: 58 / F ?ADM Date: 08/21/24 ? Loc: HO.XRAY ? Attending : Jimmy Boo MD ? Ordering Physician: Jimmy Boo MD ?? Date of Service: 11/23/23 ?? Procedure(s): XR finger RT min 2V ?? Accession Number(s): [id number] ? cc: Jimmy Boo MD ? EXAMINATION: ?? XR FINGER, RIGHT ? CLINICAL INFORMATION: ?? Chronic pain of right thumb ? COMPARISON: ?? X-ray of the right thumb February 2019 ? TECHNIQUE: ?? 3 views of the right thumb including AP view of the hand ? FINDINGS: ?? There are marginal osteophytes and mild joint space narrowing ?? indicative of mild to moderate osteoarthritis which is progressed ?? compared to prior. ? The remaining bones joints and soft tissues are unremarkable. ? XR/XR finger RT min 2V ?? IMPRESSION: ?? Fgve-wr-pevwrbrm osteoarthritis of the first carpometacarpal joint with ?? degenerative changes slightly progressed compared with February 2019 ? Electronically signed by: ??Kuldip Dill MD ??11/27/2023 02:13 PM ?? EDT RP ? Dictated By: ?Kuldip Dill MD ? Signed By: ?<Electronically signed by Kuldip Dill MD in OV> ?11/27/23 1413 ? DD/ 1155 ? TD/TT: 11/23/23 1205 ? Radiology Director: STEVE ? Procedure Note Lori Sosa - 11/27/2023 [place] [address] XRay Report Signed Patient: Lakisha Hearn AMR#: [id number] : 1965Acct:[id number] Age/Sex: 58 / FADM Date: 11/23/23 Loc: [facility] Attending Dr: Jimmy Boo MD Ordering Physician: Jimmy Boo MD Date of Service: 11/23/23 Procedure(s): XR finger RT min 2V Accession Number(s): [id number] cc: Jimmy Boo MD EXAMINATION: XR FINGER, RIGHT CLINICAL INFORMATION: Chronic pain of right thumb COMPARISON: X-ray of the right thumb February 2019 TECHNIQUE: 3 views of the right thumb including AP view of the hand FINDINGS: There are marginal osteophytes and mild joint space narrowing indicative of mild to moderate osteoarthritis which is progressed compared to prior. The remaining bones joints and soft tissues are unremarkable. XR/XR finger RT min 2V IMPRESSION: Yfmd-dc-taiouikw osteoarthritis of the first carpometacarpal joint with degenerative changes slightly progressed compared with February 2019 Electronically signed by: Kuldip Dill MD 11/27/2023 02:13 PM EDT RP Dictated By: Kuldip Dill MD Signed By: <Electronically signed by Kuldip Dill MD inOV> 11/27/23 1413 DD/ 1155 TD/TT: 11/23/23 1205 Radiology Director: STEVE Jimmy Boo MD IMG XR PROCEDURES Final Res ult documented in this encounter Visit Diagnoses Diagnosis Herpes zoster without complication- Primary documented in this encounter Care Teams Pearl Glue Drier Relationship Specialty Start Date End Date Jimmy Boo MD [address] [place] [address] PCP - General Internal Medicine 05/03/13 documented as of this encounter
--- OUTSIDE RECORDS SUMMARY | 2024-04-25 09:48 | XMS_ITS | Encounter Summary ---
Author Organization [employer] Address [address] [facility] 7t [place] [address] Care Team Providers Care Automobile Leasing Supervisor Name Role Phone Jimmy Boo MD Primary Care Provider [phone] Reason for Visit * Reason Comments positive Covid Encounter Details Date Type Department Care Team ([facility] Contact Info) Description 03/29/2024 11:15 AM EST Telemedicine [facility] CHC MED & PEDS [address] [place], [place] [phone] Gray Barnes MD [address] [place] [address] COVID (Primary Dx) Social History Tobacco Use Types Packs/Day Years Used Date Smoking Tobacco: Former Cigarettes Passive Smoke Exposure: Past Smokeless Tobacco: Never Tobacco Cessation:Counseling Given: Not Answered Alcohol Use Standard Drinks/Week Comments Defer 0 [...] AM EDT documented as of this encounter Progress Notes * Gray Petersen MD - 03/29/2024 11:15 AM EST Subjective Patient ID: Lakisha Hearn is a 58 y.o. female who presents for positive Covid. HPI Covid since Tuesday, complains of bilateral leg pain since +covid, no swellling, shortness of breath fever/chills, erythema Review of Systems Constitutional: Negative for chills, fatigue and fever. Respiratory: Negative for cough and shortness of breath. Cardiovascular: Negative for chest pain. Musculoskeletal: Positive for myalgias. Negative for arthralgias and joint swelling. Objective Physical Exam Neurological: General: No focal deficit present. Mental Status: She is oriented to person, place, and time. Psychiatric: Mood and Affect: Mood normal. Behavior: Behavior normal. Assessment/Plan Problem List Items Addressed This Visit None Visit Diagnoses COVID - Primary Symptoms started this past Tuesday, her main complain is bilateral leg pain, no swelling, no erythema, told to rest, apply cold pads, er precautions discussed documented in this encounter Plan of Treatment Upcoming Encounters Date Type Department Care Team (Late st Contact Info) Description 06/04/2024 1:45 PM EST Office Visit [facility] MED & PEDS [address] [place] [address] Jimmy Boo MD [address] [place] [address] documented as of this encounter Visit Diagnoses Diagnosis COVID- Primary documented in this encounter Care Teams Automobile Leasing Supervisor Relationship Specialty Start Date End Date Jimmy Boo MD [address] [place] [address] PCP - General Internal Medicine 05/03/13 documented as of this encounter
--- OUTSIDE RECORDS SUMMARY | 2024-04-25 09:48 | XMS_ITS | Encounter Summary ---
Author Organization [employer] Address [address] [place] [address] 7t [place] [address] Care Team Providers Care Cooper Helper Name Role Phone Jimmy Boo MD Primary Care Provider [phone] Reason for Referral * Consultation (Routine) - Closed Specialty Diagnoses / Procedures Referred By Contac t Referred To Contact Neurology Diagnoses Chronic tension-type headache, not intractable Jimmy Boo MD [address] [place] [address] Phone: tel: fax: Rory Garber MD [address] [place] [address] [place] [address] Phone: tel: fax: Referral ID Status Reason Start Date Expiration Date V isits Requested Visits Authorized [id number] Closed Specialty Services Required 03/18/2024 03/18/2025 1 1 Encounter Details Date Type Department Care Team (Late st Contact Info) Description 03/18/2024 Orders Only [facility] CHC MED & PEDS [address] [place], [place] [phone] Jimmy Boo MD [address] [place], [place] [phone] Chronic tension-type headache, not intractable (Primary Dx) Social History Tobacco Use Types [...] 06/04/2024 1:45 PM EST Office Visit [facility] MED & PEDS [address] [place] [address] Jimmy Boo MD [address] [place] [address] Scheduled Referrals Name Type Priority Associated Diagnoses Orde r Schedule Referral to Neurology Outpatient Referral Routine Chronic tension-type headache, not intractable Expected: 03/18/2024 (Approximate), Expires: 03/18/2025 documented as of this encounter Visit Diagnoses Diagnosis Chronic tension-type headache, not intractable- Primary Chronic tension type headache documented in this encounter Care Teams Cooper Helper Relationship Specialty Start Date End Date Jimmy Boo MD [address] [place] [address] PCP - General Internal Medicine 05/03/13 documented as of this encounter
--- OUTSIDE RECORDS SUMMARY | 2024-04-25 09:48 | XMS_ITS | Encounter Summary ---
Author Organization [employer] Address [address] [facility] 7t [place] [address] Care Team Providers Care Pipe Line Repairer Name Role Phone Jimmy Boo MD Primary Care Provider [phone] Reason for Visit * Reason Onset Date Comments Med Refill 04/24/2024 Encounter Details Date Type Department Care Team ([facility] Contact Info) Description 04/24/2024 Telephone [facility] MEDICINE [address] [place] [address] Jimmy Boo MD [address] [place], [place] [phone] Med Refill Social History Tobacco Use Types Packs/Day Years [...] encounter Miscellaneous Notes * Telephone Encounter - Ismael Byers - 04/24/2024 4:38 PM EST TC from pt requesting medication refill. Medications needing refill : zolpidem (Ambien) 10 MG tablet To be sent to: [facility]/pharmacy #[id number] - [place] - [address] [facility] documented in this encounter Plan of Treatment Upcoming Encounters Date Type Department Care Team (Late st Contact Info) Description 06/04/2024 1:45 PM EST Office Visit [facility] MED & PEDS [address] [place] [address] Jimmy Boo MD [address] [place] [address] documented as of this encounter Visit Diagnoses Not on filedocumented in this encounter Care Teams Pipe Line Repairer Relationship Specialty Start Date End Date Jimmy Boo MD [address] [place] [address] PCP - General Internal Medicine 05/03/13 documented as of this encounter
--- OUTSIDE RECORDS SUMMARY | 2024-04-25 09:48 | XMS_ITS | Encounter Summary ---
Author Organization [employer] Address [address] [facility] 7t [place] [address] Care Team Providers Care Multimedia Production Assistant Name Role Phone Jimmy Boo MD Primary Care Provider [phone] Reason for Visit * Reason Onset Date Comments Nurse Triage 10/24/2023 Encounter Details Date Type Department Care Team ([facility] Contact Info) Description 10/24/2023 Telephone [facility] CHC MED & PEDS [address] [place], [place] [phone] Jimmy Boo MD [address] [place] [address] Nurse Triage Social History Tobacco Use Types Packs/Day Years [...] encounter Miscellaneous Notes * Telephone Encounter - Keri Melendez RN - 10/25/2023 10:25 AM EDT Called pt regarding message to triage nurse, spoke to pt. Advised that the Valcyclovir was sent to the pharmacy and should be available today. Pt also wants to know if her Ambien is ready as well, and was advised due for signature and then will be sent to her pharmacy on file. Pt understands and agrees with plan. * Telephone Encounter - Antoinette Bruno - 10/25/2023 9:43 AM EDT Tc from pt requesting SDC appt with PCP. Please see notes, Please contact at [phone] * Telephone Encounter - Diane Garcia RN - 10/24/2023 4:04 PM EDT Called pt. She states that she has been feeling very fatigued lately and has a Hx of shingles on her back right thigh. Pt. Woke up yesterday with right back of thigh in between buttocks and back of knee pain on thigh. Pt. Noticed this am that she is breaking out with shingles again. Pt. Can see some bumps on the back of her thigh and she has nerve pain, burning sensation in leg. Pt. States that she gets shingles on and off in same area. Pt. States that it breaks out when she gets stressed and she just broke up with Boyfriend of 10 years, and sx. Started a couple days ago'. Pt. Is adamant that it is shingles and is requesting a RX for Valcyclovir. I advised pt. That I would send message to PCP to see if he will pescribe med for her. Otherwise, she wants a video call tomorrow when PCP opens [facility] schedule 10/25/23. Pt. Would prefer for RX to be sent to pharmacy instead as she states that she knows that It is shingles . Please advise. Protocol Used: Shingles (Zoster) (Adult) Protocol-Based Disposition: See in Office or Video Visit Today Video visit offer not recorded Positive Triage Questions: * Severe pain (e.g., excruciating) * Shingles rash (matches SYMPTOMS) and onset < 72 hours ago (3 days) * All higher-acuity triage questions were negative Care Advice Discussed: * Reassurance and Education - Shingles * Shingles - Symptoms * Shingles - Treatment * Shingles - Contagiousness * Expected Course * Reasons To Call Back * Telephone Encounter - Betsy Collins - 10/24/2023 4:01 PM EDT Symptom: Leg Pain - Not From Injury Outcome: Schedule an urgent appointment (within 1 hour) or talk to a nurse or provider soon Reason: Severe pain now The caller accepted this outcome Contact pt at [phone] documented in this encounter Plan of Treatment Upcoming Encounters Date Type Department Care Team (Late st Contact Info) Description 06/04/2024 1:45 PM EST Office Visit [facility] MED & PEDS [address] [place] [address] Jimmy Boo MD [address] [place] [address] documented as of this encounter Visit Diagnoses Diagnosis Primary insomnia Persistent disorder of initiating or maintaining sleep documented in this encounter Care Teams Multimedia Production Assistant Relationship Specialty Start Date End Date Jimmy Boo MD [address] [place] [address] PCP - General Internal Medicine 05/03/13 documented as of this encounter
--- OUTSIDE RECORDS SUMMARY | 2024-04-25 09:48 | XMS_ITS | Encounter Summary ---
Author Organization [employer] Address [address] [facility] [address] [facility] [address] 7t [place] [address] Care Team Providers Care Underwriting Technician Name Role Phone Jimmy Boo MD Primary Care Provider [phone] Encounter Details Date Type Department Care Team (Latest Contact Info) Description 03/29/2024 Travel Social History Tobacco Use Types Packs/Day Years Used Date Smoking Tobacco: Former Cigarettes Passive Smoke Exposure: Past Smokeless Tobacco: Never Alcohol Use Standard Drinks/Week Comments Defer 0 (1 standard drink = 0.6 oz pur e alcohol) Housing Stability Answer Date Recorded What is your housing situation today? I have margoth may 08/23/[address] you li [...] Description 06/04/2024 1:45 PM EST Office Visit [facility] MED & PEDS [address] [place] [address] Jimmy Boo MD [address] [place] [address] documented as of this encounter Visit Diagnoses Not on filedocumented in this encounter Care Teams Underwriting Technician Relationship Specialty Start Date End Date Jimmy Boo MD [address] [place] [address] PCP - General Internal Medicine 05/03/13 documented as of this encounter
--- OUTSIDE RECORDS SUMMARY | 2024-04-25 09:48 | XMS_ITS | Clinical Summary ---
Author Organization [employer] Address [address] [facility] [address] [place] [address] Care Team Providers Care Academic Manager Name Role Phone Jimmy Boo MD Primary Care Provider [phone] Allergies Active Allergy Reactions Criticality Noted Date Comments Honey Bee Venom 08/13/2013 Iodinated Contrast Media Angioedema 12/08/2017 Other reaction(s): Pruritic rash Pineapple 01/20/2024 Sulfa Antibiotics 04/10/2018 Topiramate 08/05/2011 Other reaction(s): Trouble Breathing Medications B Complex-Bioti n-FA (B-100 TR) tablet controlled-re lease Take 1 tablet by mouth in the morning. 06/24/19 21 Active sodium chloride (Mayes) 0.65 % nasal spray Administer 2 sprays into affected nostril(s) every 6 (six) hours. 10/29/19 22 Active zoster vaccine-recom binant adjuvanted (Shingrix) 50 MCG/0.5ML vaccine Inject 0.5 mL into the shoulder, thigh, or buttocks. 11/20/19 21 Active albuterol 108 (90 Base) MCG/ACT inhalerIndica tions:SOB (shortness of breath) INHALE 2 PUFFS BY MOUTH EVERY 4 TO 6 HOURS NEEDED 18 g 3 03/18/20 23 Active Sod Fluoride-Pota ssium Nitrate 1.1-5 % paste Apply a smear of the paste on the brush, and brush twice daily. 112 g 07/19/19 24 Active Additional Information Patient not taking.Reported on 08/18/2023 Diclofenac Sodium 1 % gelIndication s:Chronic pain of right thumb,Muscle spasm To apply to the affected area 3 times a day 100 g 1 11/23/19 24 Active Sodium Fluoride 5000 PPM 1.1 % gel APPLY A SMEAR OF THE TOOTHPASTE ON TOOTHBRUSH. BRUSH TWICE DAILY. SPIT, DO NOT RINSE. 100 g 12/06/19 24 Active pseudoephedri ne (Sudafed) 30 MG tabletIndicat ions:Ear pressure, bilateral Take 1 tablet (30 mg) by mouth every 4 (four) hours if needed for congestion for up to 10 days. 30 tablet 02/21/20 24 Active Sodium Fluoride 1.1 % cream [place] teeth for 2 minutes, morning and night. Spit, do not rinse. Do not eat or drink anything for 30 minutes following use. 112 g 3 03/13/20 24 Active fexofenadine (Meliza) 180 MG tabletIndicat ions:Ear pressure, bilateral TAKE 1 TABLET BY MOUTH EVERY DAY IF NEEDED FOR ALLERGIES 90 tablet 03/14/20 24 Active zolpidem (Ambien) 10 MG tabletIndicat ions:Primary insomnia TAKE 1 TABLET BY MOUTH EVERYDAY AT BEDTIME 30 tablet 03/29/20 24 Active zolpidem (Ambien) 10 MG tabletIndicat ions:Primary insomnia TAKE 1 TABLET BY MOUTH EVERYDAY AT BEDTIME 30 tablet 02/24/20 24 024 Discontinued(Re order (will not trigger notification to Pharmacy)) ibuprofen 600 MG tablet Take 1 tablet (600 mg) by mouth 3 times daily. 90 tablet 03/08/20 24 025 Active Problems Problem Noted Date Diagnosed Date Diverticulosis of colon 06/21/2023 Malignant neoplasm of breast 06/21/2023 Anemia 08/13/2013 Asthma 08/13/2013 Gastroesophageal reflux disease 10/21/2011 Depressive disorder 08/05/2011 Multiple sclerosis 08/05/2011 Encounters Date Type Department Care Team Description 04/24/2024 Telephone [facility] [address] [place] [address] Jimmy Boo MD Med Refill 04/10/2024 Telephone [facility] [address] [place] [address] Jimmy Boo MD Nurse Triage 03/29/2024 11:15 AM EST Telemedicine [facility] [address] [place] [address] Gray Barnes MD COVID (Primary Dx) 03/29/2024 Travel 03/29/[address] [address] Jimmy Boo MD FYI 03/29/2024 Refill [facility] [address] [place] [phone] Jimmy Boo MD Primary insomnia 03/20/2024 Telephone [facility] [address] [place] [address] Nelda Flores, RN Results 03/18/2024 Orders Only [facility] [address] [place] [address] Jimmy Boo MD Chronic tension-type headache, not intractable (Primary Dx) 03/14/2024 Refill [facility] [address] [place] [address] Jimmy Boo MD Ear pressure, bilateral 03/12/2024 2:00 PM EST Office Visit [facility] [address] [place] [address] Raza Boo Dental calculus (Primary Dx); Partial edentulism, unspecified edentulism class 03/08/2024 1:40 PM EST Office Visit [facility] [address] [place] [address] Roro De Leon MD Herpes zoster lesion (Primary Dx) 03/08/2024 Travel 03/07/2024 Telephone [facility] [address] [place] [phone] Jimmy Boo MD Nurse Triage 02/24/2024 Refill [facility] [address] [place] [phone] Jimmy Boo MD Primary insomnia 02/21/2024 11:15 AM EST Office Visit [facility] [address] [place] [address] Jimmy Boo MD Ear ache (Primary Dx); Ear pressure, bilateral; Multiple sclerosis ([facility]/HCC) 02/21/2024 Travel 02/20/2024 Telephone [facility] [address] [place], [place] [phone] Jimmy Boo MD chart prep 02/10/2024 Telephone [facility] [address] [place] [address] [phone] Jessica Moctezuma MD 02/09/2024 Telephone [facility] [address] [place] [phone] Jessica Moctezuma MD stable letter 02/01/2024 3:20 PM EDT Office Visit [facility] [address] [place] [address] [phone] Jessica Moctezuma MD Weakness (Primary Dx); Other headache syndrome 02/01/2024 Refill [facility] [address] [phone] Jessica Moctezuma MD 02/01/2024 Telephone [facility] [address] [place] [address] [phone] Jimmy Boo MD Nurse Triage from Last 3 Months Immunizations Name Administration Dates Next Due Pneumococcal Polysaccharide PPSV23 11/27/2011 TD (adult), 2 Lf tetanus tox oid, preservative free, adsorbed 02/18/2019 Zoster, live 04/23/2016 Social History Tobacco Use Types Packs/Day Years Used Date Smoking Tobacco: Former Cigarettes Passive Smoke Exposure: Past Smokeless Tobacco: Never Tobacco Cessation:Counseling Given: Not Answered Alcohol Use Standard Drinks/Week Comments Defer 0 (1 standard drink = 0.6 oz pur e alcohol) Housing Stability Answer Date Recorded What is your housing situation today? I have margoth sing 08/23/[address] you li [...] Orientation Straight 02/01/2022 10 :22 AM EDT Last Filed Vital Signs Vital Sign Reading Time Taken Comments Blood Pressure 108/66 03/12/2024 1:47 PM EST Pulse 66 03/12/2024 1:47 PM EST Temperature 36.1 ??C (97 ??F) 03/08/2024 1:50 PM EST Respiratory Rate 16 03/08/2024 1:50 PM EST Oxygen Saturation 97% 03/08/2024 1:50 PM EST Inhaled Oxygen Concentration - - Weight 50.8 kg (112 lb) 03/08/2024 1:50 PM EST Height 149.9 cm (4' 11 ) 03/08/2024 1:50 PM EST Body Mass Index 22.62 03/08/2024 1:50 PM EST Plan of Treatment Upcoming Encounters Date Type Department Care Team (Late st Contact Info) Description 06/04/2024 1:45 PM EST Office Visit [facility] [address] [place] [address] Jimmy Boo MD [address] [place] [address] Health Maintenance Due Date Last Done Comments CT Colonography 1965 Depression Screening 1965 FIT DNA/Cologuard 1965 FIT 1965 FOBT 1965 Sigmoidoscopy 1965 Alcohol/Substance Use Screening 1977 Hepatitis B Vaccines (1 of 3 - 19+ 3-dose series) 1984 Zoster Vaccines (2 of 3) 06/18/2016 04/23/2016 Cervical Cancer Screening 01/23/2024 HPV/Cotest 01/23/2024 01/22/2021, 08/0 08/2019, 08/15/2018 Pap Smear 01/23/2024 01/22/2021, 11/07/2019 Mammogram 01/28/2024 01/27/2023, 01/03, 11/16/2019, Additional history exists SDOH Screening 08/22/2024 08/23/2023 Dental Oral Exam 09/11/2024 03/12/2024, 12/2023, 12/28/2022 Dental Prophylaxis 09/11/2024 03/12/2024, 0 07/12/2023, 12/28/2022 Influenza Vaccine (#1) 2024 Postp oned from 12/04/2023 (Patient Refused) COVID-19 Vaccine (3 - season) 2025 12/18/2020, 11/27/2020 Postponed from 12/04/2023 (Patient Refused) DTaP/Tdap/Td Vaccines (1 - Tdap) 02/20/2025 02/18/2019 Postponed from 02/19/2019 (Patient Refused) Pneumococcal Vaccine: Pediatrics (0 to 5 Years) and At-Risk Patients (6 to 64 Years) (2 of 2 - PCV) 02/20/2025 11/27/2011 Postponed from 11/26/2012 (Patient Refused) Dental X-Ray: Bitewings 03/13/2025 03/12/20, 02/11/2023, 12/28/2022 Tobacco Screening 03/29/2025 03/29/2024 Dental X-Ray: Full Mouth 03/13/2027 03/12/2024 Colonoscopy 06/05/2027 06/04/2022, 06/25/2016 Colorectal Cancer Screening 06/05/2027 RSV Patients and Patients Aged 60 years or older (1 - 1-dose 75+ series) 2040 HIV Screening Completed 11/09/2022 Hepatitis C Screening Completed 11/09/2022 HIB Vaccines Aged Out No longer eligi ble based on patient's age to complete this topic HPV Vaccines Aged Out No longer eligi ble based on patient's age to complete this topic Hepatitis A Vaccines Aged Out No long er eligible based on patient's age to complete this topic IPV Vaccines Aged Out No longer eligi ble based on patient's age to complete this topic Meningococcal Vaccine Aged Out No mary binh eligible based on patient's age to complete this topic RSV under 20 months Aged Out No longe r eligible based on patient's age to complete this topic Rotavirus Vaccines Aged Out No longer eligible based on patient's age to complete this topic Procedures Procedure Name Priority Date/Time Associated Diagnosis Comments MR BRAIN WO CONTRAST Routine 03/12/2024 7:09 PM EST Multiple sclerosis ([facility]) PERIODIC ORAL EVALUATION - ESTABLISHED PATIENT Routine 03/12/2024 2:00 PM EST Partial edentulism, unspecified edentulism class ORAL HYGIENE INSTRUCTIONS Routine 03/12/2024 2:00 PM EST Partial edentulism, unspecified edentulism class DIAGNOSTIC - DIAGNOSTIC IMAGING - INTRAORAL - COMPREHENSIVE SERIES OF RADIOGRAPHIC IMAGES Routine 03/12/2024 2:00 PM EST Partial edentulism, unspecified edentulism class PROPHYLAXIS - ADULT Routine 03/12/2024 2 :00 PM EST Partial edentulism, unspecified edentulism class ADJUNCTIVE GENERAL SERVICES - PROFESSIONAL VISITS - CASE PRESENTATION, SUBSEQUENT TO DETAILED AND EXTENSIVE TREATMENT PLANNING Routine 03/12/2024 2:00 PM EST Partial edentulism, unspecified edentulism class 27 F(V) COMPOSITE FILLING Routine 03/12/2024 12:00 AM EST BASIC METABOLIC PANEL Routine 02/01/2024 5:00 PM EDT Other headache syndrome SED RATE BY MODIFIED WESTERGREN Routine 02/01/2024 5:00 PM EDT Other headache syndrome TSH W/REFLEX TO FT4 Routine 02/01/2024 5 :00 PM EDT Weakness LYME DISEASE AB W/REFL TO BLOT (IGG, IGM) Routine 02/01/2024 5:00 PM EDT Weakness Other headache syndrome POCT INFLUENZA B (ID NOW RAPID MOLECULAR) Routine 02/01/2024 4:16 PM EDT Weakness POCT INFLUENZA A (ID NOW RAPID MOLECULAR) Routine 02/01/2024 4:15 PM EDT Weakness POCT RAPID COVID ANTIGEN Routine 02/01/2024 4:14 PM EDT Weakness POCT URINALYSIS DIPSTICK Routine 02/01/2024 4:11 PM EDT Weakness POCT GLYCATED HEMOGLOBIN, TOTAL Routine 02/01/2024 4:09 PM EDT Weakness POCT GLUCOSE Routine 02/01/2024 4:08 PM EDT Weakness HM MAMMOGRAPHY Routine 01/27/2023 HEPATITIS C ANTIBODY REFLEX Routine 11/09/2022 1:51 PM EDT HIV ANTIBODY/ANTIGEN ([place] [facility]) Routine 11/09/2022 1:51 PM EDT HM COLONOSCOPY Routine 06/04/2022 THINPREP IMAGING PAP AND HPV MRNA E6/E7 WITH REFLEX TO HPV 16,18/45 Routine 01/22/2021 11:53 AM EDT from Last 3 Months or Most Recently Relevant to Health Maintenance Results * MR Brain w/o Contrast (03/12/2024 7:09 PM EST) Anatomical Region Laterality Modality Brain Magnetic Resonan ce 03/12/2024 7:09 PM EST Narrative 03/18/2024 4:35 PM EST ? [facility] ?[address] ?[place] [address] ? Magnetic Resonance Report ? Signed ? Patient: Bograhamois,Lakisha A ?MR#: [id number] ?? [id number] ? : 1965 ?Acct:[id number] ? Age/Sex: 58 / F ?ADM Date: 12/09/24 ? Loc: HO.MRI ? Attending Dr: Jimmy Boo MD ? Ordering Physician: Jimmy Boo MD ?? Date of Service: 03/12/24 ?? Procedure(s): MR head/brain wo con ?? Accession Number(s): [id number] ? cc: Jimmy Boo MD ? EXAMINATION: ?? MR BRAIN WITHOUT CONTRAST ? CLINICAL INFORMATION: ?? Multiple sclerosis. ? COMPARISON: ?? Brain MRI from 09/13/2014. ? TECHNIQUE: ?? MRI of the brain was obtained using routine sequences using MS protocol ?? without intravenous contrast. This included a sagittal 3D ?? high-resolution T2 FLAIR sequence. ? FINDINGS: ?? There are multiple T2/FLAIR hyperintense lesions, including lesions ?? within the subcortical, deep white matter, and periventricular, ?? distributions. ? New Lesions: Compared to exam from 2014, there is a new subcortical ?? lesion in the lateral aspect of the right parietal lobe. No additional ?? new lesions. ?? Enhancing Lesions: No contrast utilized for exam. ?? Restricted Diffusion: None. ?? T1 Black Holes: None. ?? Volume Loss: None. ? Additional Findings: ?? No evidence of edema or expansion of the optic nerves. No focal ?? restricted diffusion is seen to suggest acute or subacute cerebral ?? ischemia. No intracranial mass, intra-axial blood products, midline ?? shift, or extra-axial collection is demonstrated. The ventricles and ?? sulcal spaces appear normal. Normal arterial and venous vascular flow ?? voids are present. No signal abnormalities within the superior sagittal ?? or transverse sinuses. Mild mucosal thickening of the paranasal ?? sinuses. Mild rightward nasal septal deviation. No signal abnormalities ?? within the mastoids. ? MR/MR head/brain wo con ?? IMPRESSION: ?? Compared to exam from 2015, there is a new subcortical lesion in the ?? lateral aspect of the right parietal lobe without associated restricted ?? diffusion to suggest ongoing inflammation/demyelination. No additional ?? new lesions. ? The distribution of white matter changes changes remains nonspecific ?? but may be consistent with small vessel ischemic or demyelinating ?? processes in the appropriate clinical settings. ? Electronically signed by: ??Ryan Coreas DO ??03/18/2024 04:31 PM EST RP ? Dictated By: ?Reinaldo Coreas DO ? Signed By: ?<Electronically signed by Reinaldo Coreas, DO in OV> ? 03/18/24 1631 ? DD/ 1909 ? TD/TT: 03/12/241924 ? Doper: MARCY ? Procedure Note Donotuseinterpreter, Image - 03/18/2024 [place] [address] Magnetic Resonance Report Signed Patient: Lakisha Hearn AMR#: [id number] : 1965Acct:[id number] Age/Sex: 58 / FADM Date: 03/12/24 Loc: HO.MRI Attending Dr: Jimmy Boo MD Ordering Physician: Jimmy Boo MD Date of Service: 03/12/24 Procedure(s): MR head/brain wo con Accession Number(s): [id number] cc: Jimmy Boo MD EXAMINATION: MR BRAIN WITHOUT CONTRAST CLINICAL INFORMATION: Multiple sclerosis. COMPARISON: Brain MRI from 09/13/2014. TECHNIQUE: MRI of the brain was obtained using routine sequences using MS protocol without intravenous contrast. This included a sagittal 3D high-resolution T2 FLAIR sequence. FINDINGS: There are multiple T2/FLAIR hyperintense lesions, including lesions within the subcortical, deep white matter, and periventricular, distributions. New Lesions: Compared to exam from 2014, there is a new subcortical lesion in the lateral aspect of the right parietal lobe. No additional new lesions. Enhancing Lesions: No contrast utilized for exam. Restricted Diffusion: None. T1 Black Holes: None. Volume Loss: None. Additional Findings: No evidence of edema or expansion of the optic nerves. No focal restricted diffusion is seen to suggest acute or subacute cerebral ischemia. No intracranial mass, intra-axial blood products, midline shift, or extra-axial collection is demonstrated. The ventricles and sulcal spaces appear normal. Normal arterial and venous vascular flow voids are present. No signal abnormalities within the superior sagittal or transverse sinuses. Mild mucosal thickening of the paranasal sinuses. Mild rightward nasal septal deviation. No signal abnormalities within the mastoids. MR/MR head/brain wo con IMPRESSION: Compared to exam from 2014, there is a new subcortical lesion in the lateral aspect of the right parietal lobe without associated restricted diffusion to suggest ongoing inflammation/demyelination. No additional new lesions. The distribution of white matter changes changes remains nonspecific but may be consistent with small vessel ischemic or demyelinating processes in the appropriate clinical settings. Electronically signed by: Ryan Coreas DO 03/18/2024 04:31 PM EST RP Dictated By: Reinaldo Coreas DO Signed By: <Electronically signed by Reinaldo Coreas DO in OV> 03/18/24 1631 DD/ TD/TT: 03/12/241924 Doper: MARCY us Jimmy Boo MD IMG MRI PROCEDURES Edited R esult - Final * TSH with Reflex to Free T4 (02/01/2024 5:00 PM EDT) TSH reflex Free T4 3.30 0.32 - 4.0 uIU/mL [facility] Blood 02/01/2024 5:00 PM EDT 02/01/2024 5:00 PM EDT us Jessica Motcezuma MD LAB BLOOD ORDERABLES Fin al Result [facility] [address] [place] [phone] * Lyme Disease Ab with Reflex to Blot (IgG, IgM) (02/01/2024 5:00 PM EDT) Lyme Antibody Screen <0.90 index [facility] Comment:Index Interpretation ----- < 0.90 Negative 0.90-1.09 Equivocal > 1.09 PositiveAs recommended by the Food and Drug Administration(FDA), all samples with positive or equivocalresults in a Borrelia burgdorferi antibody screenwill be tested using a blot method. Positive orequivocal screening test results should not beinterpreted as truly positive until verified as suchusing a supplemental assay (e.g., B. burgdorferi blot).The screening test and/or blot for B. burgdorferiantibodies may be falsely negative in early stagesof Lyme disease, including the period when erythemamigrans is apparent.THIS TEST WAS PERFORMED AT:[facility] [place] [phone] DIAZ MD Lyme Blot TNP [facility] 02/01/2024 5:00 PM EDT 02/01/2024 5:00 PM EDT Jessica Moctezuma MD LAB BLOOD ORDERABLES Fin al Result Performing Organization Address [facility] Co de Phone Number [facility] [address] [place] [phone] * Sed Rate by Modified Nasergren (02/01/2024 5:00 PM EDT) Erythrocyte Sedimentation Rate 6 0 - 20 MM/HR [facility] Comment:Patients with polycy themia and many hemoglobin abnormalitiesmay have depressed sed rates whereas patients with anemiamay have elevated sed rates. Blood Venous blood specimen / Unknown 02/01/2024 5:00 PM EDT 02/01/2024 5:00 PM EDT us Jessica Moctezuma MD LAB BLOOD ORDERABLES Fin al Result Performing Organization Address [facility] Co de Phone Number [facility] [address] [place] [phone] * (ABNORMAL) Basic Metabolic Panel (02/01/2024 5:00 PM EDT) Sodium 140 135 - 145 mmol/L [facility] Potassium 4.3 3.3 - 5.1 mmol/L [facility] Chloride 103 96 - 108 mmol/L [facility] Carbon Dioxide 29 22 - 29 mmol/L [facility] Anion Gap 12 12 - 20 [facility] Urea Nitrogen (BUN) 12 9 - 16 mg/dL [facility] Creatinine, Serum 0.82 0.5 - 1.4 mg/dL [facility] Estimated Glomerular Filt Rate >60 [facility] Comment:NOTE: For -Am erican individuals, multiply the result by 1.210.Chronic Kidney Disease: Estimated GFR < 60 mL/min/1.04f8Ctaxzq Kidney Disease: Estimated GFR < 15 mL/min/1.73m2 Glucose 118(H) 60 - 115 mg/dL [facility] Calcium 9.6 8.4 - 10.2 mg/dL [facility] Blood Venous blood specimen / Unknown 02/01/2024 5:00 PM EDT 02/01/2024 5:00 PM EDT Jessica Moctezuma MD LAB BLOOD ORDERABLES Fin al Result Performing Organization Address [facility]/ZIP Co de Phone Number [facility] [address] [place] [phone] * Influenza B (ID NOW Rapid Molecular) (02/01/2024 4:16 PM EDT) Influenza B Negative Negative, Indeterminate [facility] Swab 02/01/2024 4:16 PM EDT Jessica Moctezuma MD POINT OF CARE TEST ENTER /EDIT ORDERABLES Final Result Performing Organization Address [facility] Co de Phone Number [facility] [address] [place] [phone] * Influenza A (ID NOW Rapid Molecular) (02/01/2024 4:15 PM EDT) Influenza A Negative Negative, Indeterminate [facility] Swab 02/01/2024 4:15 PM EDT Jessica Moctezuma MD POINT OF CARE TEST ENTER /EDIT ORDERABLES Final Result Performing Organization Address [facility] Co de Phone Number [facility] [address] [place] [phone] * POCT Rapid COVID Ag (02/01/2024 4:14 PM EDT) Pathologist [facility] Rapid COVID Ag Negative Swab 02/01/2024 4:[address] [facility] Jesscia Moctezuma MD POINT OF CARE TEST ENTER /EDIT ORDERABLES Final Result * (ABNORMAL) POCT urinalysis dipstick manually resulted (02/01/2024 4:11 PM EDT) Pathologist [facility] Color, UA Yellow Clarity, UA Clear Glucose, UA Negative Bilirubin, UA Negative Ketones, UA Negative Spec Grav, UA 1.025 Blood, UA Positive(A) Negative, None Detected pH, UA 6.0 Protein, UA Negative Urobilinogen, UA 0.2 Leukocytes, UA Negative Negative, Rare, Trace Nitrite, UA Negative Negative, None Detected Appearance, UA OK Urine 02/01/2024 4:[address] [facility] Jessica Moctezuma MD POINT OF CARE TEST ENTER /EDIT ORDERABLES Final Result * POCT A1C (02/01/2024 4:09 PM EDT) [facility] Hemoglobin A1C 5.3 4.0 - 6.0 % Blood 02/01/2024 4:[address] [facility] Jessica Moctezuma MD POINT OF CARE TEST ENTER /EDIT ORDERABLES Final Result * POCT glucose manually resulted (02/01/2024 4:08 PM EDT) Pathologist [facility] Glucose Blood, POC 78 60 - 200 mg/dL Blood Capillary blood specimen / Unknown 02/01/2024 4:[address] [facility] Jessica Moctezuma MD POINT OF CARE TEST ENTER /EDIT ORDERABLES Final Result * Hm Mammography (01/27/2023) Pathologist [facility] HM Mammogram negative Anatomical Region Laterality Modality Other Narrative 01/27/2023 Bi rads -negative Jimmy Boo MD HEALTH MAINTENANCE Final Re sult * Hepatitis C Antibody Reflex (11/09/2022 1:51 PM EDT) Hepatitis C Antibody Nonreactive Nonreactive [facility] Comment:Antibodies to HCV no t detected; does not exclude early acuteHCV infection. 11/09/2022 1:51 PM EDT 11/09/2022 5:49 PM EDT Venecia NEFF LAB BLOOD ORDERABLES Rach l Result Performing Organization Address [facility] Co de Phone Number [facility] [address] [place] [address] [phone] * HIV Ab/Ag ([facility]) (11/09/2022 1:51 PM EDT) HIV AB/AG Nonreactive Nonreactive [facility] Comment:HIV-1 p24 Ag and/or HIV-1/HIV-2 Ab not detected.A test result that is nonreactive does not exclude thepossibility of exposure to or infection with HIV-1 and/orHIV-2. Nonreactive results in this assay for individualswith prior exposure to HIV-1 and/or HIV-2 may be due toantigen and antibody levels that are below the limit ofdetection of this assay.The [employer] HIV Ag/Ab Combo assay result andsupplemental assay results should be interpreted inconjunction with the patient's clinical presentation,history and other laboratory results. If the results areinconsistent with clinical evidence, additional testing issuggested to confirm the result. 11/09/2022 1:51 PM EDT 11/09/2022 5:49 PM EDT Venecia NEFF LAB BLOOD ORDERABLES Rach l Result Performing Organization Address [facility] Co de Phone Number [facility] [address] [place] [phone] * Hm Colonoscopy (06/04/2022) Colonoscopy Normal Normal 06/04/2022 Jacey Donnelly - 06/04/2022 2:23 PM EST Recommended 5 year follow up due to family hx of cancer ( see scanned report ) us Historical Provider HEALTH MAINTENANCE Final Result * THINPREP TIS PAP AND HPV mRNA E6/E7 REFLEX HPV 16,18/45 (01/22/2021 11:53 AM EDT) Clinical Information: None given [facility] COMMENT SEE COMMENT [facility] Comment: EXPLANATORY NOTE: ? The Pap is a screening test for cervical cancer. It is ?? not a diagnostic test and is subject to false negative ?? and false positive results. It is most reliable when a ?? satisfactory sample, regularly obtained, is submitted ?? with relevant clinical findings and history, and when ?? the Pap result is evaluated along with historic and ?? current clinical information. ?? COMMENT: This Pap test has been evaluated with computer assisted technology. [facility] Knowledge Management Advisor: SEE COMMENT [facility] Comment: DCR, CT(ASCP) CT screening location: [address] ??[address] HPV nRNA E6/E7 Not Detected Not Detected [facility] Comment: Methodology: Director Medical Affairs-Mediated Amplification This assay detects E6/E7 viral messenger RNA (mRNA) from 14 high-risk HPV types (16,18,31,33,35,39,45,51,52,56,58,59,66,68). ? The analytical performance characteristics of this assay have been determined by [employer]. The modifications have not been cleared or approved by the FDA. This assay has been validated pursuant to the CLIA regulations and is used for clinical purposes. ?? For additional information, please refer to http://education.CabbyGo/faq/LWZ396g0 (This link if provided for information/ educational purposes only.) Interpretation/Res ult: SEE COMMENT [facility] Comment: Negative for intraepithelial lesion or malignancy. Atrophic pattern; predominantly parabasal cells LMP: NONE [facility]IVEN [facility] Prev. BX: NONE [facility]IVEN [facility] Prev. PAP: LEDA HPV+ 2020 NEG [facility] SOURCE: None given [facility] Statement Of Adequacy: SATISFACTORY FOR EVALUATION [facility] 01/22/2021 11:5 3 AM EDT Venecia NEFF LAB PATHOLOGY ORDERABLES Final Result [facility] [address] from Last 3 Months or Most Recently Relevant to Health Maintenance Insurance - [facility] - [facility] Care Teams Academic Manager Relationship Specialty Start Date End Date Jimmy Boo MD [address] [place] [address] PCP - General Internal Medicine 05/03/13
--- OUTSIDE RECORDS SUMMARY | 2024-04-25 09:48 | XMS_ITS | Encounter Summary ---
Author Organization [employer] Address [address] [facility] 7t [place] [address] Care Team Providers Care Psychological Anthropologist Name Role Phone Jimmy Boo MD Primary Care Provider [phone] Reason for Visit * Reason Onset Date Comments Nurse Triage 04/10/2024 Encounter Details Date Type Department Care Team ([facility] st Contact Info) Description 04/10/2024 Telephone [facility] MEDICINE [address] [place] [address] Jimmy Boo MD [address] [place], [place] [phone] Nurse Triage Social History Tobacco Use Types [...] t he electric, gas, oil or water [employer] threatened to shut off services in your home? No 08/23/2023 Comments No Sex and Gender Information Value Date Recorded Sex Assigned at Female 02/01/2022 10:22 AM EDT Legal Sex Female 10:22 AM EDT Gender Identity Female 02/01/2022 10:22 AM EDT Sexual Orientation Straight 02/01/2022 10 :22 AM EDT documented as of this encounter Miscellaneous Notes * Telephone Encounter - Delfina Jaocb LPN - 04/10/2024 9:56 AM EST Triage call to patient who reports that she has pain in her face as if she hit it but has not had any accident or injury to face. Patient with right sided face pain in sabianist and right eye and face. Had COVID at [place] and recovered, has nagging headache worse in the morning. Began running humidifier in bedroom several nights ago. No fever slight ear discomfort as related to face pain. Symptoms present now for 4-5 days. Disposition reviewed and patient in agreement with plan. [facility] referral placed and ETA to be determined by them with patient. Protocol Used: Sinus Pain or Congestion (Adult) Protocol-Based Disposition: See in Office or Video Visit Today or Tomorrow Video visit not offered Positive Triage Question: * Patient wants to be seen * All higher-acuity triage questions were negative Care Advice Discussed: * Hydration * Reasons To Call Back - You become worse * Telephone Encounter - Karlos Kc - 04/10/2024 9:35 AM EST Symptom: Sinus Symptoms Outcome: Schedule an urgent appointment (within 1 hour) or talk to a nurse or provider soon Reason: Severe headache Please contact pt at [phone]. documented in this encounter Plan of Treatment Upcoming Encounters Date Type Department Care Team ([facility] st Contact Info) Description 06/04/2024 1:45 PM EST Office Visit [facility] MED & PEDS [address] [place] [address] Jimmy Boo MD [address] [place] [address] documented as of this encounter Visit Diagnoses Not on filedocumented in this encounter Care Teams Psychological Anthropologist Relationship Specialty Start Date End Date Jimmy Boo MD [address] [place] [address] PCP - General Internal Medicine 05/03/13 documented as of this encounter
--- OUTSIDE RECORDS SUMMARY | 2024-04-25 09:48 | XMS_ITS | Encounter Summary ---
Author Organization [employer] Address [address] [facility] [address] 7t [place] [address] Care Team Providers Care Hand Plug Shaper Name Role Phone Jimmy Boo MD Primary Care Provider [phone] Reason for Visit * Reason Comments Med Refill Encounter Details Date Type Department Care Team ([facility] Contact Info) Description 12/02/[address] [facility] CHC ADULT DENTAL [address] [place] [address] Luis Guzman DDS [address] [place] [address] Social History Tobacco Use Types Packs/Day Years [...] Telephone Encounter - Luis Guzman DDS - 12/06/2023 10:20 AM EDT Approving, but needs appt for additional refills. documented in this encounter Plan of Treatment Upcoming Encounters Date Type Department Care Team (Late st Contact Info) Description 06/04/2024 1:45 PM EST Office Visit [facility] MED & PEDS 505 [place] [address] Jimmy Boo MD 505 [place] [address] documented as of this encounter Visit Diagnoses Not on filedocumented in this encounter Care Teams Hand Plug Shaper Relationship Specialty Start Date End Date Jimmy Boo MD 505 [place] [address] PCP - General Internal Medicine 05/03/13 documented as of this encounter
--- OUTSIDE RECORDS SUMMARY | 2024-04-25 09:48 | XMS_ITS | Encounter Summary ---
Author Organization [employer] Address [address] [facility] 7t [place] [address] Care Team Providers Care Vegetable Farm Worker Name Role Phone Jimmy Boo MD Primary Care Provider [phone] Reason for Visit * Reason Comments Med Refill Encounter Details Date Type Department Care Team ([facility] Contact Info) Description 12/28/2023 Refill [facility] MEDICINE [address] [place], [place] [phone] Jimmy Boo MD 505 [place] [address] Primary insomnia Social History Tobacco Use Types [...] Description 06/04/2024 1:45 PM EST Office Visit [facility] MED & PEDS 505 [place] [address] Jimmy Boo MD 505 [place] [address] documented as of this encounter Visit Diagnoses Diagnosis Primary insomnia Persistent disorder of initiating or maintaining sleep documented in this encounter Care Teams Vegetable Farm Worker Relationship Specialty Start Date End Date Jimmy Boo MD 505 [place] [address] PCP - General Internal Medicine 05/03/13 documented as of this encounter
--- OUTSIDE RECORDS SUMMARY | 2024-04-25 09:49 | XMS_ITS | Encounter Summary ---
Author Organization [employer] Address [address] [facility] 7t [place] [address] Care Team Providers Care Forestry Hunter Name Role Phone Jimmy Boo MD Primary Care Provider [phone] Encounter Details Date Type Department Care Team ([facility] Contact Info) Description 06/25/2022 Telephone [facility] MEDICINE [address] [place], [place] [phone] Jimmy Boo MD [address] [place], [place] [phone] Social History Tobacco Use Types Packs/Day Years Used Date Smoking Tobacco: Never Smokeless Tobacco: Never Comments Unknown Sex and Gender Information Value Date Recorded Sex Assigned at Female 02/01/2022 10:22 AM EDT Legal Sex Female 10:22 AM EDT Gender Identity Female 02/01/2022 10:22 AM EDT Sexual Orientation Straight 02/01/2022 10 :22 AM EDT COVID-19 Exposure Response Date Recorded In the last 10 days, have yo u been in contact with someone who was confirmed or suspected to have Coronavirus/COVID-19? No / Unsure 05/27/2022 9:39 AM EST documented as of this encounter Plan of Treatment Upcoming Encounters Date Type Department Care Team (Late Contact Info) Description 06/04/2024 1:45 PM EST Office Visit [facility] MED & PEDS 505 [place], [place] [phone] Jimmy Boo MD [address] [place], [place] [phone] documented as of this encounter Visit Diagnoses Not on filedocumented in this encounter Care Teams Forestry Hunter Relationship Specialty Start Date End Date Jimmy Boo MD [address] [place] [address] PCP - General Internal Medicine 05/03/13 documented as of this encounter
--- OUTSIDE RECORDS SUMMARY | 2024-04-25 09:49 | XMS_ITS | Encounter Summary ---
Author Organization [facility] [employer] Address [address] [place] [address] 7t [place] [address] Care Team Providers Care Skip Loader Name Role Phone Jimmy Boo MD Primary Care Provider [phone] Reason for Visit * Reason Comments Med Refill Encounter Details Date Type Department Care Team ([facility] Contact Info) Description 06/19/2022 Refill [facility] MED & PEDS [address] [place] [address] Jimmy Boo MD 505 [place] [address] Primary insomnia Social History Tobacco Use Types [...] Upcoming Encounters Date Type Department Care Team ([facility] Contact Info) Description 06/04/2024 1:45 PM EST Office Visit [facility] CHC MED & PEDS [address] [place] [address] Jimmy Boo MD 505 [place], [place] [phone] documented as of this encounter Visit Diagnoses Diagnosis Primary insomnia Persistent disorder of initiating or maintaining sleep documented in this encounter Care Teams Skip Loader Relationship Specialty Start Date End Date Jimmy Boo MD [address] [place] [phone] PCP - General Internal Medicine 05/03/13 documented as of this encounter
--- OUTSIDE RECORDS SUMMARY | 2024-04-25 09:49 | XMS_ITS | Encounter Summary ---
Author Organization [employer] Address [address] [facility] [address] 7t [place] [address] Care Team Providers Care Elevator Erector Helper Name Role Phone Jimmy Boo MD Primary Care Provider [phone] Reason for Visit * Reason Onset Date Comments case back from lab?? 10/19/2022 Encounter Details Date Type Department Care Team ([facility] Contact Info) Description 10/19/2022 Telephone [facility] CH[facility] ADULT D[facility]AL [address] [place] [address] Luis Guzman, DDS [address] [place] [address] case back from lab?? Social History Tobacco Use Types Packs/Day Years Used Date Smoking Tobacco: Never Smokeless Tobacco: Never Alcohol Use Standard Drinks/Week Comments Defer 0 (1 standard drink = 0.6 oz pur e alcohol) Comments Unknown Sex and Gender Information Value Date Recorded Sex Assigned at Female 02/01/2022 10:22 AM EDT Legal Sex Female 10:22 AM EDT Gender Identity Female 02/01/2022 10:22 AM EDT Sexual Orientation Straight 02/01/2022 10 :22 AM EDT documented as of this encounter Miscellaneous Notes * Telephone Encounter - Zoey Geronimo - 10/19/2022 1:15 PM EDT Patient called to check on status of case if its back from lab DR documented in this encounter Plan of Treatment Upcoming Encounters Date Type Department Care Team (Late st Contact Info) Description 06/04/2024 1:45 PM EST Office Visit [facility] CHC MED & PEDS [address] [place] [address] Jimmy Boo MD 505 [place] [address] documented as of this encounter Visit Diagnoses Not on filedocumented in this encounter Care Teams Elevator Erector Helper Relationship Specialty Start Date End Date Jimmy Boo MD 505 [place] [address] PCP - General Internal Medicine 05/03/13 documented as of this encounter
--- OUTSIDE RECORDS SUMMARY | 2024-04-25 09:49 | XMS_ITS | Encounter Summary ---
Author Organization [employer] Address [address] [facility] [address] 7t [place] [address] Care Team Providers Care Locksmith Apprentice Name Role Phone Jimmy Boo MD Primary Care Provider [phone] Reason for Visit * Reason Comments Med Refill Encounter Details Date Type Department Care Team ([facility] Contact Info) Description 10/03/2023 Refill [facility] CHC ADULT DENTAL [address] [place], [place] [phone] Mary Jane Massey DMD Social History Tobacco Use Types Packs/Day Years [...] Telephone Encounter - Luis Guzman DDS - 10/03/2023 8:07 AM EDT Approving, but needs appt for additional refills. documented in this encounter Plan of Treatment Upcoming Encounters Date Type Department Care Team (Late st Contact Info) Description 06/04/2024 1:45 PM EST Office Visit [facility] MED & PEDS 505 [place] [address] Jimmy Boo MD 505 [place] [address] documented as of this encounter Visit Diagnoses Not on filedocumented in this encounter Care Teams Locksmith Apprentice Relationship Specialty Start Date End Date Jimmy Boo MD 505 [place] [address] PCP - General Internal Medicine 05/03/13 documented as of this encounter
--- OUTSIDE RECORDS SUMMARY | 2024-04-25 09:49 | XMS_ITS | Encounter Summary ---
Author Organization [facility] [employer] Address [address] [facility] 7[place] [address] Care Team Providers Care Senior Officer Name Role Phone Jimmy Boo MD Primary Care Provider [phone] Encounter Details Date Type Department Care Team (Late Contact Info) Description 03/02/2023 Abstract [facility] ADULT DENTAL 505 [place], [place] [phone] Zahira Harris DDS [address] [place], [place] [phone] Social History Tobacco Use Types Packs/Day Years Used Date Smoking Tobacco: Never Smokeless Tobacco: Never Alcohol Use Standard Drinks/Week Comments Defer 0 (1 standard drink = 0.6 oz pur e alcohol) Comments No Sex and Gender Information Value Date Recorded Sex Assigned at Female 02/01/2022 10:22 AM EDT Legal Sex Female 10:22 AM EDT Gender Identity Female 02/01/2022 10:22 AM EDT Sexual Orientation Straight 02/01/2022 10 :22 AM EDT documented as of this encounter Plan of Treatment Upcoming Encounters Date Type Department Care Team (Late Contact Info) Description 06/04/2024 1:45 PM EST Office Visit [facility] MED & PEDS [address] [place], [place] [phone] Jimmy Boo MD 505 [place], [place] [phone] documented as of this encounter Visit Diagnoses Not on filedocumented in this encounter Care Teams Senior Officer Relationship Specialty Start Date End Date Jimmy Boo MD [address] [place] [address] PCP - General Internal Medicine 05/03/13 documented as of this encounter
--- OUTSIDE RECORDS SUMMARY | 2024-04-25 09:49 | XMS_ITS | Encounter Summary ---
Author Organization [employer] Address [address] [facility] 7t [place] [address] Care Team Providers Care School Librarian Name Role Phone Jimmy Boo MD Primary Care Provider [phone] Reason for Visit * Reason Onset Date Comments Med Refill 07/13/2023 Encounter Details Date Type Department Care Team ([facility] Contact Info) Description 07/13/2023 Refill [facility] CHC ADULT DENTAL [address] [place] [address] Luis Guzman DDS [address] [place] [address] Social History Tobacco Use Types Packs/Day Years [...] Telephone Encounter - Luis Guzman DDS - 07/19/2023 9:31 AM EDT Approving, but needs appt for additional refills. documented in this encounter Plan of Treatment Upcoming Encounters Date Type Department Care Team (Late Contact Info) Description 06/04/2024 1:45 PM EST Office Visit [facility] MED & PEDS 505 [place] [address] Jimmy Boo MD 505 [place] [address] documented as of this encounter Visit Diagnoses Not on filedocumented in this encounter Care Teams School Librarian Relationship Specialty Start Date End Date Jimmy Boo MD [address] [place] [address] PCP - General Internal Medicine 05/03/13 documented as of this encounter
--- OUTSIDE RECORDS SUMMARY | 2024-04-25 09:49 | XMS_ITS | Encounter Summary ---
Author Organization [employer] Address [address] [facility] 7t [place] [address] Care Team Providers Care Fabric Finisher Name Role Phone Jimmy Boo MD Primary Care Provider [phone] Reason for Visit * Reason Comments Med Refill Encounter Details Date Type Department Care Team ([facility] Contact Info) Description 04/22/2022 Refill [facility] MEDICINE [address] [place], [place] [phone] Jimmy Boo MD [address] [place], [place] [phone] SOB (shortness of breath) Social History Tobacco Use Types Packs/Day Years [...] suspected to have Coronavirus/COVID-19? No / Unsure 04/23/2022 10:41 AM EST documented as of this encounter Plan of Treatment Upcoming Encounters Date Type Department Care Team ([facility] Contact Info) Description 06/04/2024 1:45 PM EST Office Visit [facility] CHC MED & PEDS [address] [place], [place] [phone] Jimmy Boo MD [address] [place], [place] [phone] documented as of this encounter Visit Diagnoses Diagnosis SOB (shortness of breath) Shortness of breath documented in this encounter Care Teams Fabric Finisher Relationship Specialty Start Date End Date Jimmy Boo MD [address] [place] [phone] PCP - General Internal Medicine 05/03/13 documented as of this encounter
--- OUTSIDE RECORDS SUMMARY | 2024-04-25 09:49 | XMS_ITS | Encounter Summary ---
Author Organization [employer] Address [address] [place] [address] 7t [place] [address] Care Team Providers Care Analysis Internship Name Role Phone Jimmy Boo MD Primary Care Provider [phone] Reason for Visit * Reason Comments Med Refill Encounter Details Date Type Department Care Team ([facility] Contact Info) Description 06/24/2022 Refill [facility] MED & PEDS [address] [place] [address] Jimmy Boo MD [address] [place] [address] Primary insomnia Social History Tobacco Use Types [...] Upcoming Encounters Date Type Department Care Team ([facility] Contact Info) Description 06/04/2024 1:45 PM EST Office Visit [facility] CHC MED & PEDS [address] [place] [address] Jimmy Boo MD [address] [place], [place] [phone] documented as of this encounter Visit Diagnoses Diagnosis Primary insomnia Persistent disorder of initiating or maintaining sleep documented in this encounter Care Teams Analysis Internship Relationship Specialty Start Date End Date Jimmy Boo MD [address] [place] [address] PCP - General Internal Medicine 05/03/13 documented as of this encounter
--- OUTSIDE RECORDS SUMMARY | 2024-04-25 09:49 | XMS_ITS | Encounter Summary ---
Author Organization [employer] Address [address] [facility] 7t [place] [address] Care Team Providers Care Crisis Counselor Name Role Phone Jimmy Boo MD Primary Care Provider [phone] Reason for Visit * Reason Onset Date Comments Med Refill 06/20/2023 Encounter Details Date Type Department Care Team ([facility] Contact Info) Description 06/20/2023 Telephone [facility] MEDICINE [address] [place] [address] Jimmy Boo MD [address] [place], [place] [phone] Med Refill Social History Tobacco Use Types [...] encounter Miscellaneous Notes * Telephone Encounter - Antoinette Bruno - 06/20/2023 11:35 AM EDT Tc from pt requesting a refill for zolpidem (Ambien) 10 MG tablet documented in this encounter Plan of Treatment Upcoming Encounters Date Type Department Care Team (Late st Contact Info) Description 06/04/2024 1:45 PM EST Office Visit [facility] MED & PEDS [address] [place] [address] Jimym Boo MD [address] [place] [address] documented as of this encounter Visit Diagnoses Not on filedocumented in this encounter Care Teams Crisis Counselor Relationship Specialty Start Date End Date Jimmy Boo MD [address] [place] [address] PCP - General Internal Medicine 05/03/13 documented as of this encounter
--- OUTSIDE RECORDS SUMMARY | 2024-04-25 09:49 | XMS_ITS | Encounter Summary ---
Author Organization [employer] Address [address] [place] [address] 7t [place] [address] Care Team Providers Care Replenishment Analyst Name Role Phone Jimmy Boo MD Primary Care Provider [phone] Reason for Visit * Reason Comments Med Refill Encounter Details Date Type Department Care Team ([facility] Contact Info) Description 06/23/2022 Refill [facility] MED & PEDS [address] [place] [address] Jimmy Boo MD [address] [place] [address] Primary insomnia Social History Tobacco Use Types [...] Encounters Date Type Department Care Team ([facility] Contact Info) Description 06/04/2024 1:45 PM EST Office Visit [facility] CHC MED & PEDS [address] [place] [address] Jimmy Boo MD [address] [place], [place] [phone] documented as of this encounter Visit Diagnoses Diagnosis Primary insomnia Persistent disorder of initiating or maintaining sleep documented in this encounter Care Teams Replenishment Analyst Relationship Specialty Start Date End Date Jimmy Boo MD [address] [place] [address] PCP - General Internal Medicine 05/03/13 documented as of this encounter
--- OUTSIDE RECORDS SUMMARY | 2024-04-25 09:49 | XMS_ITS | Encounter Summary ---
Author Organization [employer] Address [address] [facility] 7t [place] [address] Care Team Providers Care Hand Pleater Name Role Phone Jimmy Boo MD Primary Care Provider [phone] Reason for Visit * Reason Onset Date Comments Nurse Triage 01/31/2023 Encounter Details Date Type Department Care Team (Late st Contact Info) Description 01/31/2023 Telephone [facility] MEDICINE [address] [place] [address] Jimmy Boo MD [address] [place] [address] Nurse Triage Social History Tobacco Use Types [...] encounter Miscellaneous Notes * Telephone Encounter - Kati Darling RN - 01/31/2023 11:04 AM EDT Triage call Pt reports a chronic RUQ abdominal pain which has increased significantly over the weekend. Pt reports the pain comes quickly and takes my breath away then leaves . Pt denies any injury , heavy lifting or strain. Pt denies fever, cough. Pt reports increased shortness of breath at timesand heart palpatations . Palpatations are not new but , increased as well. Pt reports SOB with exertion as well. Apt in [facility] 01/31/23 @ 300pm. Insurance is verified as active prior to booking. Protocol Used: Abdominal Pain - Female (Adult) Protocol-Based Disposition: See in Office or Video Visit Today Video visit not offered Positive Triage Questions: * Moderate pain (e.g., interferes with normal activities that comes and goes (cramps) lasts > 24hours (Exception: Pain with Vomiting or Diarrhea - see that Protocol.) * Patient wants to be seen * All higher-acuity triage questions were negative Care Advice Discussed: * Reassurance and Education - Stomach Pain * Rest * Drink Clear Fluids * Pass a Stool * Expected Course - Abdomen Pain * Reasons To Call Back - Severe pain lasts over 1 hour - Constant pain lasts over 2 hours - Intermittent pains (e.g., comes and goes, cramps) lasts over 48 hours - You are - You become worse * Telephone Encounter - Antoinette Bruno - 01/31/2023 10:30 AM EDT Symptom: Abdominal Pain - Female - Not Outcome: Talk to a nurse or provider within 15 minutes Reason: Severe pain now The caller accepted this outcome Please contact at [phone] documented in this encounter Plan of Treatment Upcoming Encounters Date Type Department Care Team (Late st Contact Info) Description 06/04/2024 1:45 PM EST Office Visit [facility] MED & PEDS [address] [place] [address] Jimmy Boo MD [address] [place] [address] documented as of this encounter Visit Diagnoses Not on filedocumented in this encounter Care Teams Hand Pleater Relationship Specialty Start Date End Date Jimmy Boo MD [address] [place] [address] PCP - General Internal Medicine 05/03/13 documented as of this encounter
--- OUTSIDE RECORDS SUMMARY | 2024-04-25 09:49 | XMS_ITS | Encounter Summary ---
Author Organization [facility] [employer] Address [address] [facility] [address] [place] [address] Care Team Providers Care Automobile Damage Field Appraiser Name Role Phone Jimmy Boo MD Primary Care Provider [phone] Encounter Details Date Type Department Care Team (Late Contact Info) Description 05/16/2023 Abstract [facility] ADULT DENTAL [address] [place] [address] Mary Jane Massey DMD Social History Tobacco [...] [facility] MED & PEDS [address] [place] [address] Jimmy Boo MD [address] [place] [address] documented as of this encounter Visit Diagnoses Not on filedocumented in this encounter Care Teams Automobile Damage Field Appraiser Relationship Specialty Start Date End Date Jimmy oBo MD [address] [place] [address] PCP - General Internal Medicine 05/03/13 documented as of this encounter
--- OUTSIDE RECORDS SUMMARY | 2024-04-25 09:49 | XMS_ITS | Encounter Summary ---
Author Organization [employer] Address [address] [facility] 7t [place] [address] Care Team Providers Care Heel Sewer Name Role Phone Jimmy Boo MD Primary Care Provider [phone] Reason for Visit * Reason Onset Date Comments Medication Question 06/21/2022 Encounter Details Date Type Department Care Team ([facility] Contact Info) Description 06/21/2022 Telephone [facility] MED & PEDS [address] [place], [place] [phone] Jimmy Boo MD [address] [place], [place] [phone] Medication Question Social History Tobacco Use Types Packs/Day Years [...] AM EST documented as of this encounter Miscellaneous Notes * Telephone Encounter - Devaughn Atkinson RN - 06/21/2022 2:58 PM EDT Call to pt regarding message below. States she would like for the Ibuprofen 800mg to be decreased to 600mg. Per pt, feels the 800mg dose sometimes causes stomach upset. Advised will forward request to covering provider to review as PCP out. Pt requesting Rx be sent to [facility] pharmacy on [facility]. * Telephone Encounter - Sangeetha Veronica - 06/21/2022 2:27 PM EDT Tc from pt requesting for medication ibuprofen . States does not want the 800mg . Would like to know if she can get 600 mg instead . documented in this encounter Plan of Treatment Upcoming Encounters Date Type Department Care Team ([facility] st Contact Info) Description 06/04/2024 1:45 PM EST Office Visit [facility] MED & PEDS [address] [place] [address] Jimmy Boo MD [address] [place] [address] documented as of this encounter Visit Diagnoses Diagnosis Primary insomnia Persistent disorder of initiating or maintaining sleep SOB (shortness of breath) Shortness of breath documented in this encounter Care Teams Heel Sewer Relationship Specialty Start Date End Date Jimmy Boo MD [address] [place] [address] PCP - General Internal Medicine 05/03/13 documented as of this encounter
--- OUTSIDE RECORDS SUMMARY | 2024-04-25 09:49 | XMS_ITS | Encounter Summary ---
Author Organization [facility] [employer] Address [address] [facility] 7[place] [address] Care Team Providers Care Economic History Teacher Name Role Phone Jimmy Boo MD Primary Care Provider [phone] Encounter Details Date Type Department Care Team ([facility] Contact Info) Description 08/17/2022 Abstract [facility] MED & PEDS [address] [place] [address] Jimmy Boo MD [address] [place] [address] Social History Tobacco Use Types Packs/Day Years [...] 06/04/2024 1:45 PM EST Office Visit [facility] MED & PEDS [address] [place] [address] Jimmy Boo MD [address] [place] [address] documented as of this encounter Procedures Procedure Name Priority Date/Time Associated Diagnosis Comments COLONOSCOPY Routine 06/04/2022 COLONOSCOPY Routine 06/25/2016 documented in this encounter Results * Colonoscopy (06/04/2022) Colonoscopy Normal Normal 06/04/2022 Jacey Donnelly - 06/04/2022 2:23 PM EST Recommended 5 year follow up due to family hx of cancer ( see scanned report ) Historical Provider HEALTH MAINTENANCE Final Result * Colonoscopy (06/25/2016) Colonoscopy Normal Normal 06/25/2016 Jacey Donnelly - 06/25/2016 2:17 PM EDT Recommended 5 year follow [place] ( [facility] Historical Provider HEALTH MAINTENANCE Final Result documented in this encounter Visit Diagnoses Not on filedocumented in this encounter Care Teams Economic History Teacher Relationship Specialty Start Date End Date Jimmy Boo MD [address] [place] [address] PCP - General Internal Medicine 05/03/13 documented as of this encounter
--- OUTSIDE RECORDS SUMMARY | 2024-04-25 09:49 | XMS_ITS | Encounter Summary ---
Author Organization [employer] Address [address] [facility] [address] 7[address] [place] [address] Care Team Providers Care Caterpillar Mechanic Name Role Phone Jimmy oBo MD Primary Care Provider [phone] Reason for Visit * Reason Comments Med Refill Encounter Details Date Type Department Care Team ([facility] Contact Info) Description 08/27/2023 Refill [facility] CHC ADULT DENTAL [address] [place], [place] [phone] Mary Jane Massey DMD Social History Tobacco [...] encounter Miscellaneous Notes * Telephone Encounter - Mary Jane Prieto DMD - 09/01/2023 12:51 PM EDT Approving, but needs appt for additional refills. documented in this encounter Plan of Treatment Upcoming Encounters Date Type Department Care Team (Late st Contact Info) Description 06/04/2024 1:45 PM EST Office Visit [facility] MED & PEDS [address] [place] [address] Jimmy Boo MD [address] [place] [address] documented as of this encounter Visit Diagnoses Not on filedocumented in this encounter Care Teams Caterpillar Mechanic Relationship Specialty Start Date End Date Jimmy Boo MD [address] [place] [address] PCP - General Internal Medicine 05/03/13 documented as of this encounter
--- OUTSIDE RECORDS SUMMARY | 2024-04-25 09:49 | XMS_ITS | Encounter Summary ---
Author Organization [employer] Address [address] [place] [address] 7t [place] [address] Care Team Providers Care Toll Operator Name Role Phone Jimmy Boo MD Primary Care Provider [phone] Reason for Visit * Reason Comments Med Refill Encounter Details Date Type Department Care Team ([facility] Contact Info) Description 06/22/2022 Refill [facility] MED & PEDS [address] [place] [address] Jimmy Boo MD [address] [place] [address] Primary insomnia Social History Tobacco Use Types [...] Upcoming Encounters Date Type Department Care Team ([facility] Contact Info) Description 06/04/2024 1:45 PM EST Office Visit [facility] CHC MED & PEDS [address] [place] [address] Jimmy Boo MD [address] [place], [place] [phone] documented as of this encounter Visit Diagnoses Diagnosis Primary insomnia Persistent disorder of initiating or maintaining sleep documented in this encounter Care Teams Toll Operator Relationship Specialty Start Date End Date Jimmy Boo MD [address] [place] [address] PCP - General Internal Medicine 05/03/13 documented as of this encounter
--- OUTSIDE RECORDS SUMMARY | 2024-04-25 09:49 | XMS_ITS | Encounter Summary ---
Author Organization [facility] [employer] Address [address] [facility] [address] [place] [address] Care Team Providers Care Vegetable Cutter Name Role Phone Jimmy Boo MD Primary Care Provider [phone] Encounter Details Date Type Department Care Team (Late Contact Info) Description 04/13/2023 Abstract [facility] ADULT DENTAL [address] [place], [place] [phone] Zahira Harris DDS [address] [place], [place] [phone] Social History Tobacco Use Types Packs/Day Years [...] [facility] MED & [facility]ED[facility] [address] [place], [place] [phone] Jimmy Boo MD [address] [place], [place] [phone] documented as of this encounter Visit Diagnoses Not on filedocumented in this encounter Care Teams Vegetable Cutter Relationship Specialty Start Date End Date Jimmy Boo MD [address] [place] [address] PCP - General Internal Medicine 05/03/13 documented as of this encounter
--- OUTSIDE RECORDS SUMMARY | 2024-04-25 09:49 | XMS_ITS | Encounter Summary ---
Author Organization [employer] Address [address] [facility] [address] 7[address] [place] [address] Care Team Providers Care Vehicle And Equipment Cleaner Name Role Phone Jimmy Boo MD Primary Care Provider [phone] Encounter Details Date Type Department Care Team (Late st Contact Info) Description 08/30/2023 Orders Only [facility] CHC MED & PEDS [address] [place], [place] [phone] Provider, MD Ynes Social History Tobacco Use Types Packs/Day Years [...] 1:45 PM EST Office Visit [facility] MED & PEDS [address] [place] [address] Jimmy Boo MD [address] [place] [address] documented as of this encounter Procedures Procedure Name Priority Date/Time Associated Diagnosis Comments CT HEART W/O DYE HAYDE EVAL Routine 08/26/2023 3:[address] HEAD WO CONTRAST Routine 08/26/2023 9:41 AM EDT documented in this encounter Results * CT HEART W/O DYE HAYDE EVAL (08/26/2023 3:43 PM EDT) Anatomical Region Laterality Modality Computed Tomogra phy us Historical Provider MD ÁLVAREZ CT PROCEDURES Final R esult * CT Head w/o Contrast (08/26/2023 9:41 AM EDT) Anatomical Region Laterality Modality Head, Neck Computed Tomogra phy us Historical Provider MD ÁLVAREZ CT PROCEDURES Final R esult documented in this encounter Visit Diagnoses Not on filedocumented in this encounter Care Teams Vehicle And Equipment Cleaner Relationship Specialty Start Date End Date Jimmy Boo MD [address] [place] [address] PCP - General Internal Medicine 05/03/13 documented as of this encounter
--- OUTSIDE RECORDS SUMMARY | 2024-04-25 09:49 | XMS_ITS | Encounter Summary ---
Author Organization [facility] [employer] Address [address] [facility] 7t [place] [address] Care Team Providers Care Mig Tig Welder Name Role Phone Jimmy Boo MD Primary Care Provider [phone] Encounter Details Date Type Department Care Team (Late Contact Info) Description 07/07/2023 Orders Only [facility] MED & PEDS [address] [place], [place] [phone] Jimmy Boo MD [address] [place] [address] Diverticulosis of colon (Primary Dx) Social History Tobacco Use Types [...] 1:45 PM EST Office Visit [facility] MED & PEDS [address] [place] [address] Jimmy Boo MD [address] [place], [place] [phone] Scheduled Orders Name Type Priority Associated Diagnoses Orde r Schedule Fecal Globin by Immunochemistry Lab Routine Diverticulosis of colon Expected: 07/07/2023 (Approximate), Expires: 07/06/2024 Urinalysis Complete Lab Routine Diverticulosis of colon Expected: 07/07/2023 (Approximate), Expires: 07/06/2024 documented as of this encounter Visit Diagnoses Diagnosis Diverticulosis of colon- Primary Diverticulosis of colon (without mention of hemorrhage) documented in this encounter Care Teams Mig Tig Welder Relationship Specialty Start Date End Date Jimmy Boo MD [address] [place] [address] PCP - General Internal Medicine 05/03/13 documented as of this encounter
--- OUTSIDE RECORDS SUMMARY | 2024-04-25 09:49 | XMS_ITS | Encounter Summary ---
Author Organization [facility] [employer] Address [address] [facility] 7t [place] [address] Care Team Providers Care Car Supplier Name Role Phone Jimmy Boo MD Primary Care Provider [phone] Encounter Details Date Type Department Care Team ([facility] Contact Info) Description 06/21/2023 Orders Only [facility] MED & PEDS [address] [place] [address] Jimmy Boo MD [address] [place] [address] Primary insomnia Social History Tobacco Use Types [...] Upcoming Encounters Date Type Department Care Team ([facility] Contact Info) Description 06/04/2024 1:45 PM EST Office Visit [facility] MED & PEDS [address] [place] [address] Jimmy Boo MD [address] [place] [address] documented as of this encounter Visit Diagnoses Diagnosis Primary insomnia Persistent disorder of initiating or maintaining sleep documented in this encounter Care Teams Car Supplier Relationship Specialty Start Date End Date Jimmy Boo MD [address] [place] [address] PCP - General Internal Medicine 05/03/13 documented as of this encounter
--- OUTSIDE RECORDS SUMMARY | 2024-04-25 09:49 | XMS_ITS | Encounter Summary ---
Author Organization [employer] Address [address] [facility] 7t [place] [address] Care Team Providers Care Hemmer Lockstitch Name Role Phone Jimmy Boo MD Primary Care Provider [phone] Encounter Details Date Type Department Care Team ([facility] Contact Info) Description 06/25/2022 Orders Only [facility] MED & PEDS [address] [place], [place] [phone] Gray Barnes MD [address] [place], [place] [phone] Primary insomnia; SOB (shortness of breath) Social History Tobacco [...] Upcoming Encounters Date Type Department Care Team ([facility] Contact Info) Description 06/04/2024 1:45 PM EST Office Visit [facility] MED & PEDS [address] [place], [place] [phone] Jimmy Boo MD [address] [place], [place] [phone] documented as of this encounter Visit Diagnoses Diagnosis Primary insomnia Persistent disorder of initiating or maintaining sleep SOB (shortness of breath) Shortness of breath documented in this encounter Care Teams Hemmer Lockstitch Relationship Specialty Start Date End Date Jimmy Boo MD [address] [place] [address] PCP - General Internal Medicine 05/03/13 documented as of this encounter
--- OUTSIDE RECORDS SUMMARY | 2024-04-25 09:49 | XMS_ITS | Encounter Summary ---
Author Organization [employer] Address [address] [facility] [address] 7t [place] [address] Care Team Providers Care Landscape Architect Name Role Phone Jimmy Boo MD Primary Care Provider [phone] Reason for Visit * Reason Onset Date Comments rct appt 02/17/2023 Encounter Details Date Type Department Care Team ([facility] Contact Info) Description 02/17/2023 Telephone [facility] ADULT DENTAL [address] [place] [address] Tricia Davis, DDS [address] [facility] [place] [address] rct appt Social History Tobacco Use Types Packs/Day Years [...] * Telephone Encounter - Zoey Geronimo - 02/17/2023 2:22 PM EST Patient was not sure if she got aphone call to be scheduled for endo treatment. documented in this encounter Plan of Treatment Upcoming Encounters Date Type Department Care Team ([facility] Contact Info) Description 06/04/2024 1:45 PM EST Office Visit [facility] MED & PEDS [address] [place] [address] Jimmy Boo MD [address] [place] [address] documented as of this encounter Visit Diagnoses Not on filedocumented in this encounter Care Teams Landscape Architect Relationship Specialty Start Date End Date Jimmy Boo MD [address] [place] [address] PCP - General Internal Medicine 05/03/13 documented as of this encounter
--- OUTSIDE RECORDS SUMMARY | 2024-04-25 09:50 | XMS_ITS | Continuity of Care Document ---
Author Organization [employer] Address [address] [place] [address] Care Team Providers Care Geographical Historian Name Role Phone [facility] OTHER [facility] OTHER Assessment Encounter Date Assessment Date Assessment LastModified by Organization Details LastModified Time 04/10/2024 04/10/2024 I provided real -time medical direction via phone for this encounter, and was available for additional phone based assistance as needed. I have reviewed the Assessment and Plan as documented by the Cuff Setter Lockstitch. We discussed the diagnostic uncertainty of home visits and the risk associated with this. In this case the patient and I felt this to be an acceptable and reasonable amount of risk given the benefit of avoiding an ED visit. I had a lengthy discussion with the patient/ the patient given the opportunity to ask questions. Advised to call PCP tomorrow and keep appointment 04/23 with neuro and for MRI- advised to have low threshold for going to the ER- if develops CP/severe SOB/turning blue/uncontrolle d n/v/d or black/bloody emesis or stool/ AMS/severe headache/ syncope or any acute neuro changes such as vison/ speech/ focal weakness or new numbness/ hi fever /rash or redness to the face to call 911- verbalized understanding of instruction [email or web address] Not available 04/10/2024 17:16:10 Plan of Treatment Reminders Order Date Submit Date Provider Last Modified By Organization Details Last Modified Time Details Appointments None recorded. Lab None recorded. Referral None recorded. Procedures None recorded. Surgeries None recorded. Imaging None recorded. Medication Orders prednisone 20 mg tablet 2024 025 [email or web address] Not available 14:39:14 prednisone 20 mg tablet 2024 025 [id number], [address] [facility] [facility] [place], [address], 14:39:17 Patient TargetsNo targets recorded. Patient InstructionsNo instructions recorded. Reason for Referral None Reported. Medical Equipment None Reported. Allergies Allergen ID Allergen Name Allergen Category Reaction Reaction Severity Criticality Documentation Date Start Date Code Code System Note Provider Name and Address Organization Details Recorded Time 77017 topiramat e medicatio n Not available Not available Not available 04/10/2024 58534 RxNorm Not Available [employer] - production 10:14:26 40632 Bactrim medicatio n Not available Not available Not available 04/10/2024 33570 9 RxNorm Not Available [employer] - production 10:14:26 13337 Iodinated contrast media (substanc e) medicatio n Not available Not available Not available 04/10/2024 41800 2004 SNOMED Cara Bauer MD [address] [place] [address],[address], [place], [address], [email or web address] 14:33:28 73104 tamoxifen medicatio n Not available Not available Not available 04/10/2024 01211 RxNorm Cara Bauer MD [address] [place] [address],[address], [place], [address], [email or web address] 14:33:55 Medications Name Sig Start Date Stop Date Status Note LastModified by Organization Details LastModified Time valacyclovir 1 gram tablet TAKE 1 TABLET BY MOUTH 3 TIMES DAILY FOR 7 DAYS active Not Available Not Available N ot Available prednisone 20 mg tablet Take 2 tablets every day by oral route after meal(s) for 4 days. active Not Available Not Available No t Available prednisone 5 mg tablet PLEASE SEE ATTACHED FOR DETAILED DIRECTIONS active Not Available Not Available N ot Available fexofenadine 180 mg tablet TAKE 1 TABLET BY MOUTH EVERY DAY IF NEEDED FOR ALLERGIES active Not Available Not Available No t Available ibuprofen 600 mg tablet TAKE 1 TABLET BY MOUTH 3 TIMES DAILY. active Not Available Not Available No t Available zolpidem 10 mg tablet TAKE 1 TABLET BY MOUTH EVERYDAY AT BEDTIME active Not Available Not Available No t Available Nasal Decongestant (pseudoephed rine) 30 mg tablet TAKE 1 TABLET (30 MG) BY MOUTH EVERY 4 (FOUR) HOURS IF NEEDED FOR CONGESTION FOR UP TO 10 DAYS. active Not Available Not Available No t Available Denta 5000 Plus 1.1 % cream PLEASE SEE ATTACHED FOR DETAILED DIRECTIONS active Not Available Not Available N ot Available sodium fluoride 1.1 %-potassium nitrate 5 % dental paste APPLY A SMEAR OF THE PASTE ON THE BRUSH, AND BRUSH TWICE DAILY. active Not Available Not Available No t Available diclofenac 1 % topical gel TO APPLY TO THE AFFECTED AREA 3 TIMES A DAY active Not Available Not Available Not Available Sodium Fluoride 5000 Dry Mouth 1.1 % dental paste APPLY A SMEAR OF THE TOOTHPASTE ON TOOTHBRUSH. BRUSH TWICE DAILY. SPIT, DO NOT RINSE. active Not Available Not Available N ot Available Vitals Date Recorded Body temperature Oxygen saturation Oxygen saturation in Arterial blood by Pulse oximetry Body height Heart rate Respiratory rate Body weight Systolic blood pressure Diastolic blood pressure Provider Name and Address Organization Details Last Updated DateTime 5 98.1 [degF] 99 % 99 % 149.86 cm 80 /min 18 /min 70383.1 2 g 147 mm[Hg] 94 mm[Hg] Not Available [employer] - production 5 14:14:44 Social History None recorded. Functional Status None recorded. Mental Status None recorded. Family History Nothing Reported. Medical History No medical history recorded. Gynecological HistoryNo gynecological history recorded. Obstetrics History GPAL:G 0 P 0 0 0 0 Past Encounters Encounter ID Performer Location Encounter Start Date Encounter Closed Date Diagnosis/Indication Diagnosis SNOMED-CT Code Diagnosis ICD10 Code Diagnosis Note [id number] Cara Bauer MD Main - [address] [address] 04/10/2024 14:14:38 04/10/2024 18:10:27 Atypical facial pain 37271684 G50.1 Possible trigeminal neuralgia/ discussed gabapentin with the patient which we cannot prescribe but she states she does not tolerate it. She has a prescripti on for ibuprofen 600 but does not like to take it as it causes GI upset. BLS medic on scene- unable to draw labs/ no ketorolac available/ temporal arteritis is also in the differenti al. no evidence of herpetic rash 5 days into new facial pain. She was agreeable to trial APAP for pain and prednisone to reduce nerve inflammati on/pain. Advised to hold ibuprofen while taking the prednisone and to take the prednisone with food.Patie nt has Tylenol arthritis 650 mg given stated weight of 110 pounds advise she may have 1 tablet 3 times a day for pain.advis ed ice / wrapped in a towel alternatin g w/ gentle heat for 10-15 min q 3-4H w/a to affected area Health Concerns Section Related Observation LastModified by Organization Detai ls LastModified Time None Recorded Concern Status LastModified by Organization Details LastModified Time None Recorded Payers Encounter Date Sequence Insurance Name Policy Number Policy Gill Covered Member ID Gill Member ID Guarantor Name 04/10/2024 1 [facility] - DOS ON OR AFTER 2022 - DUAL ELIGIBLE - LONGTERM OPTIONS AND ONE CARE (MEDICARE REPLACEMENT/ADV ANTAGE - HMO) Lakisha Hearn [id number] Lakisha Hearn Notes Date Note Type Note Provider Name and Address Organization Details Recorded Time 04/10/2024 text/html HPI: Patient with complaints of right sided face pain for 4-5 days. No fever, slight headache. Pain right moravian forehead eye and face.Recovered COVID March 2024 ...................... ...................... ...................... ...................... ...................... ...................... ......... [facility] Nurse Triage Notes (Malia Kent - YVONNE): Chief Complaints: Headache PMH: Multiple Sclerosis, Cigarette Smoker, Gastroesophageal Reflux Disease (GERD) PMH Reviewed at 04/10/2024 - 10:14 Allergies Reviewed at 04/10/2024 - 10:14 Comments: HPI reviewed Allergies BEE ...................... ...................... ...................... ...................... ...................... ...................... ......... Cuff Setter Lockstitch Note From Marti Kuldip: SC1 dispatched to the above address for the pt with a headache. Upon arrival the pt was found walking in her apartment stating her right side of her head hurts. The pt stated she had just gotten over having Covid just before and now she has a headache. The pt has a history of MS Gerd and CA. The pt is cancer free at the present time. The pt has an appointment on the 23 of April for a follow up as they found a subcortial lesion in the lateral aspect of her right parietal lobe. The pt states she has had the headache for the last 4/5 days and she has taken Ibuprofen with minimal relief. Dr Bauer was consulted and she has a possible swelling to her facial nerve. Dr Bauer prescribed 40mg PO of Prednisone and the pt had 650mg tablets of Tylenol which she is to take with the prednisone. The pt understood the instructions and the warning signs were gone over. Chest pain, Severe shortness of breath, bloody stool, vomiting of blood. The pt was aware. The pt took the Prednisone and then SC1 cleared the call. WRR ...................... ...................... ...................... ...................... ...................... ...................... ......... [facility] Consulted: Cara Bauer ...................... ...................... ...................... ...................... ...................... ...................... ......... Disposition: Fulfilled SEGMD: Patient clearly reported to me she has a headache when she gets up in the am for months/ she describes that she has pain from her right lateral orbit to her right temporal /parietal area-it feels like iqiw-rtr-noklqxu with a sharp component, but it does not feel like her other headaches. She has had this pain for 5 days. She has had no rashes. She was diagnosed as noted by the medic with a new subcortical lesion on the lateral aspect of her right parietal lobe and has an MRI/ neurology appointment on 04/23/2024. Patient denies vision changes, tinnitus, facial droop, focal weakness, dizziness, cold symptoms, dental pain(she recently saw the dentist and was told her teeth and gums were fine). She does not have any pain with opening and closing her jaw or chewing. She has had no fevers or chills. No nausea vomiting or diarrhea. She has a history of GERD but denies a history of pud or any GI bleeding or CKD. She was given a prescription for fexofenadine, decongestant and ibuprofen 600 mg recently and she states the ibuprofen upsets her stomach so she cuts it in half. She reports being upset because her PCP diagnosed her with MS a while ago and the neurologist she saw recently because of the headaches and she also states she occasionally has trouble finding words told her she did not have MS. She is aware of the lesion and the need for further workup. She had breast CA right breast 2012 status post chemo/XRT and lumpectomy without recurrence. She also has a history of anemia asthma, diverticulosis and depressive d/o. She was last on prednisone 4 to 6 weeks ago and she states she does tolerate it she is not a diabetic. Cara Bauer MD [address] [facility],[address], [place], [address], [employer] 04/10/2024 17:16:13 OBGyn Episode No OBEpisode recorded.
--- OUTSIDE RECORDS SUMMARY | 2024-04-25 09:50 | XMS_ITS | Encounter Summary ---
Author Organization [facility] [employer] Address [address] [facility] [address]t [place] [address] Care Team Providers Care Groundskeeper Porter Name Role Phone Jimmy Boo MD Primary Care Provider [phone] Encounter Details Date Type Department Care Team (Latest Contact Info) Description 03/14/2020 Abstract [facility] CONVERSIONS Dental, Provider, DDS Social History Tobacco Use Types Packs/Day Years Used Date Smoking Tobacco: Never Assessed Comments Unknown Sex and Gender Information Value [...] Description 06/04/2024 1:45 PM EST Office Visit [facility] CHC MED & PEDS [address] [place] [address] Jimmy Boo MD [address] [place] [address] documented as of this encounter Visit Diagnoses Not on filedocumented in this encounter Care Teams Groundskeeper Porter Relationship Specialty Start Date End Date Jimmy Boo MD [address] [place] [address] PCP - General Internal Medicine 05/03/13 documented as of this encounter
--- OUTSIDE RECORDS SUMMARY | 2024-04-25 09:50 | XMS_ITS | Encounter Summary ---
Author Organization [employer] Address [address] [facility] [address] [place] [address] Care Team Providers Care Agents' Records Clerk Name Role Phone Jimmy Boo MD Primary Care Provider [phone] Reason for Visit * Reason Comments Med Refill Encounter Details Date Type Department Care Team ([facility] Contact Info) Description 03/16/2022 Refill [facility] MEDICINE [address] [place], [place] [phone] Jimmy Boo MD [address] [place] [address] Insomnia, unspecified Social History Tobacco Use Types Packs/Day Years [...] suspected to have Coronavirus/COVID-19? No / Unsure 03/17/2022 7:50 AM EST documented as of this encounter Plan of Treatment Upcoming Encounters Date Type Department Care Team ([facility] Contact Info) Description 06/04/2024 1:45 PM EST Office Visit [facility] CHC MED & PEDS [address] [place] [address] Jimmy Boo MD [address] [place], [place] [phone] documented as of this encounter Visit Diagnoses Diagnosis Insomnia, unspecified documented in this encounter Care Teams Agents' Records Clerk Relationship Specialty Start Date End Date Jimmy Boo MD [address] [place] [address] PCP - General Internal Medicine 05/03/13 documented as of this encounter
--- OUTSIDE RECORDS SUMMARY | 2024-04-25 09:50 | XMS_ITS | Data Portability ---
Author Organization [employer] Address [address] [place] [address] Care Team Providers Care Naturopathic Doctor Name Role Phone [facility] OTHER [facility] OTHER Assessment Encounter Date Assessment Date Assessment LastModified by Organization Details LastModified Time 04/10/2024 04/10/2024 I provided real -time medical direction via phone for this encounter, and was available for additional phone based assistance as needed. I have reviewed the Assessment and Plan as documented by the Machine Sander. We discussed the diagnostic uncertainty of home [...] to call 911- verbalized understanding of instruction [email or web address] Not available 04/10/2024 17:16:10 Plan of Treatment Reminders Order Date Submit Date Provider Last Modified By Organization Details Last Modified Time Details Appointments None recorded. Lab None recorded. Referral None recorded. Procedures None recorded. Surgeries None recorded. Imaging None recorded. Medication Orders prednisone 20 mg tablet 2024 025 [email or web address] Not available 14:39:14 prednisone 20 mg tablet 2024 025 [facility]/Pharmacy #[id number], [address] [facility] [place], [address], 14:39:17 Patient TargetsNo targets recorded. Patient InstructionsNo instructions recorded. Reason for Referral None Reported. Medical Equipment None Reported. Allergies Allergen ID Allergen Name Allergen Category Reaction Reaction Severity Criticality Documentation Date Start Date Code Code System Note Provider Name and Address Organization Details Recorded Time 14101 topiramat e medicatio n Not available Not available Not available 04/10/2024 59565 RxNorm Not Available [facility] - production 10:14:26 17657 Bactrim medicatio n Not available Not available Not available 04/10/2024 43664 9 RxNorm Not Available [employer] - production 10:14:26 24215 Iodinated contrast media (substanc e) medicatio n Not available Not available Not available 04/10/2024 27953 2004 SNOMED Cara Bauer MD [address] [place] [address],[address], [place], [address], [employer] 14:33:28 63034 tamoxifen medicatio n Not available Not available Not available 04/10/2024 45065 RxNorm Cara Bauer MD [address] [place] [address],[address], [place], [address], [employer] 14:33:55 Medications Name Sig Start Date Stop [...] % 149.86 cm 80 /min 18 /min 06989.1 2 g 147 mm[Hg] 94 mm[Hg] Not Available [employer] - production 5 14:14:44 Social History None recorded. Functional Status None recorded. Mental Status None recorded. Family History Nothing Reported. Medical History No medical history recorded. Gynecological HistoryNo gynecological history recorded. Obstetrics History GPAL:G 0 P 0 0 0 0 Past Encounters Encounter ID Performer Location Encounter Start Date Encounter Closed Date Diagnosis/Indication Diagnosis SNOMED-CT Code Diagnosis ICD10 Code Diagnosis Note [id number] Cara Bauer MD Main - [address] [address] 04/10/2024 14:14:38 04/10/2024 18:10:27 Atypical facial pain 71347246 G50.1 Possible trigeminal neuralgia/ discussed gabapentin with [...] prednisone and to take the prednisone with food.Nirali nt has Tylenol arthritis 650 mg given [...] by Organization Details LastModified Time None Recorded Advance Directives Directive None Recorded Payers Encounter Date Sequence Insurance Name Policy Number Policy Gill Covered Member ID Gill Member ID Guarantor Name 04/10/2024 1 [facility] - DOS ON OR AFTER 2022 - DUAL ELIGIBLE - [facility] OPTIONS AND ONE CARE (MEDICARE REPLACEMENT/ADV ANTAGE - HMO) Lakisha Hearn [id number] Lakisha [employer] Notes Date Note Type Note Provider Name and Address Organization Details Recorded Time 04/10/2024 text/html HPI: Patient with complaints of right sided face pain for 4-5 days. No fever, slight headache. Pain right zoroastrianism forehead eye and face.Recovered COVID March 2024 ...................... ...................... ...................... ...................... ...................... ...................... ......... [facility] Nurse Triage Notes (Malia Kent - RN): Chief Complaints: Headache PMH: Multiple Sclerosis, Cigarette Smoker, Gastroesophageal Reflux Disease (GERD) PMH Reviewed at 04/10/2024 10:14 Allergies Reviewed at 04/10/2024 10:14 Comments: HPI reviewed Allergies BEE ...................... ...................... ...................... ...................... ...................... ...................... ......... Machine Sander Note From Kuldip Kidd: SC1 dispatched to the above address for [...] ...................... ...................... ...................... ...................... ...................... ...................... ......... [facility] Consulted: Cara Bauer ...................... ...................... ...................... ...................... ...................... ...................... ......... Disposition: Fulfilled SEGMD: Patient clearly reported to me she has a headache when she gets up in the am for months/ she describes that she has pain from her right lateral orbit to her right temporal /parietal area-it feels like dxcr-tfy-uhrhevc with a sharp component, but it does [...] not a diabetic. Cara Bauer MD [address] [facility],[address], [place], [address], [employer] - [employer], [employer] 04/10/2024 17:16:13 OBGyn Episode No OBEpisode recorded.
--- OUTSIDE RECORDS SUMMARY | 2024-04-25 09:50 | XMS_ITS | Encounter Summary ---
Author Organization [facility] [employer] Address [address] [facility] [address]t [place] [address] Care Team Providers Care Route Sales Person Name Role Phone Jimmy Boo MD Primary Care Provider [phone] Encounter Details Date Type Department Care Team (Latest Contact Info) Description 08/16/2018 Abstract [facility] CONVERSIONS Dental, Provider, DDS Social History Tobacco [...] Description 06/04/2024 1:45 PM EST Office Visit [facility] CHC MED & PEDS [address] [place] [address] Jimmy Boo MD [address] [place] [address] documented as of this encounter Visit Diagnoses Not on filedocumented in this encounter Care Teams Route Sales Person Relationship Specialty Start Date End Date Jimmy Boo MD [address] [place] [address] PCP - General Internal Medicine 05/03/13 documented as of this encounter
[2024-04-25 10:21] LABS: Alanine Aminotransferase 13 U/L (0-31); Albumin Level 4.4 g/dL (3.5-5.0); Alkaline Phosphatase 68 U/L (39-117); Anion Gap 8 (12-20); Aspartate Amino Transferase 18 U/L (5-31); Bilirubin Direct 0.2 mg/dL (0.0-0.5); Bilirubin Total 0.5 mg/dL (0.0-1.0); Blood Urea Nitrogen 14 mg/dL (9-16); Calcium 10.1 mg/dL (8.4-10.2); Carbon Dioxide 30 mmol/L (22-29); Chloride 107 mmol/L (96-108); Estimated Glomerular Filt Rate > 60; Glucose Fasting 81 mg/dL (60-99); Potassium 4.8 mmol/L (3.3-5.1); Sodium 140 mmol/L (135-145); Total Protein 7.6 g/dL (6.5-8.0)
[2024-04-25 10:41] LABS: Erythrocyte Sedimentation Rate 7 MM/HR (0-20)
[2024-04-25 10:42] LABS: Syphilis Screen Nonreactive (Nonreactive)
[2024-04-26 19:43] LABS: Lyme Abs Screen <0.90 index
[2024-04-26 22:03] LABS: Cardiolipin IgG Ab <2.0 GPL-U/mL; Cardiolipin IgM Ab <2.0 MPL-U/mL
[2024-04-27 12:23] LABS: IgA 310 mg/dL (47-310); IgG 739 mg/dL (600-1640); IgM 48 mg/dL (50-300)
[2024-04-30 08:43] LABS: Anti Nuclear Antibody Screen NEGATIVE (NEGATIVE)
== END 2024-04-25 09:18 | disposition home or self-care (01) ==
LOC: HO.LAB 09:17
PROVIDERS: PCP Internal Medicine; Visit Provider Psychiatry & Neurology Neurology
DX: M79.7 Fibromyalgia (principal)
CPT/HCPCS: 36415; 80048; 80076; 82746; 82784; 85652; 86038; 86147; 86334; 86617; 86618; 86780

== ENCOUNTER 2024-06-12 09:26 | Outpatient (REF) | payer OTHER, SELFPAY ==
--- NOTE | 2024-06-12 09:30 | EMG_ITS ---
FINDINGS: Left median and ulnar motor and sensory studies were performed. Left radial sensory and median and lateral antecubital brachial sensory studies were performed and paraspinal muscles were tested with a needle. IMPRESSION: 1. Mild left ulnar neuropathy across cubital tunnel. 2. Mild left median neuropathy across carpal tunnel. MD PATRICA Robledo/GILMA / [id number]
--- OUTSIDE RECORDS SUMMARY | 2024-06-12 10:33 | XMS_ITS | Encounter Summary ---
Author Organization [employer] Address [address] [facility] [address] [place] [address] Care Team Providers Care Advertising Agency Manager Name Role Phone Jimmy Boo MD Primary Care Provider [phone] Reason for Visit * Reason Onset Date Comments Nurse Triage 10/24/2023 Encounter Details Date Type Department Care Team ([facility] Contact Info) Description 10/24/2023 Telephone [facility] CHC MED & PEDS [address] [place], [place] [phone] Jimmy Boo MD [address] [place] [address] Nurse Triage Social History Tobacco Use Types [...] PCP. Please see notes, Please contact at [phone] * Telephone Encounter - Diane Garcia RN [...] a video call tomorrow when PCP opens [facility] schedule 10/25/23. Pt. Would prefer for RX [...] caller accepted this outcome Contact pt at [phone] documented in this encounter Plan of Treatment Not on file documented as of this encounter Visit Diagnoses Diagnosis Primary insomnia Persistent disorder of initiating or maintaining sleep documented in this encounter Care Teams Advertising Agency Manager Relationship Specialty Start Date End Date Jimmy Boo MD [address] [place] [address] PCP - General Internal Medicine 05/03/13 documented as of this encounter
--- OUTSIDE RECORDS SUMMARY | 2024-06-12 10:33 | XMS_ITS | Encounter Summary ---
Author Organization [employer] Address [address] [facility] [address] [place] [address] Care Team Providers Care Coordinator Of Placement Name Role Phone Jimmy Boo MD Primary Care Provider [phone] Reason for Visit * Reason Comments Med Refill Encounter Details Date Type Department Care Team ([facility] Contact Info) Description 12/02/2023 Refill [facility] CHC ADULT DENTAL [address] [place] [address] Luis Guzman DDS [address] [place] [address] Social History Tobacco Use Types Packs/Day Years [...] on filedocumented in this encounter Care Teams Coordinator Of Placement Relationship Specialty Start Date End Date Jimmy Boo MD [address] [place] [address] PCP - General Internal Medicine 05/03/13 documented as of this encounter
--- OUTSIDE RECORDS SUMMARY | 2024-06-12 10:33 | XMS_ITS | Encounter Summary ---
Author Organization [employer] Address [address] [facility] [address] [place] [address] Care Team Providers Care Record Changer Name Role Phone Jimmy Boo MD Primary Care Provider [phone] Reason for Visit * Reason Comments Med Refill Encounter Details Date Type Department Care Team ([facility] st Contact Info) Description 12/28/2023 Refill [facility] MEDICINE [address] [place], [place] [phone] Jimmy Boo MD [address] [place] [address] Primary insomnia Social History Tobacco Use Types [...] as of this encounter Plan of Treatment Not on file documented as of this encounter Visit Diagnoses Diagnosis Primary insomnia Persistent disorder of initiating or maintaining sleep documented in this encounter Care Teams Record Changer Relationship Specialty Start Date End Date Jimmy Boo MD [address] [place] [address] PCP - General Internal Medicine 05/03/13 documented as of this encounter
--- OUTSIDE RECORDS SUMMARY | 2024-06-12 10:33 | XMS_ITS | Encounter Summary ---
Author Organization [employer] Address 75 [facility] 7t [place] [address] Care Team Providers Care Coal Pulverizing Operator Name Role Phone Jimmy Boo MD Primary Care Provider [phone] Reason for Visit * Reason Comments Med Refill Encounter Details Date Type Department Care Team ([facility] st Contact Info) Description 12/29/2023 Refill [facility] [address] [place], [place] [phone] Jimmy Boo MD 505 [place] [address] Primary insomnia Social History Tobacco Use Types [...] sleep documented in this encounter Care Teams Coal Pulverizing Operator Relationship Specialty Start Date End Date Jimmy Boo MD [address] [place] [address] PCP - General Internal Medicine 05/03/13 documented as of this encounter
--- OUTSIDE RECORDS SUMMARY | 2024-06-12 10:33 | XMS_ITS | Encounter Summary ---
Author Organization [employer] Address 75 [facility] 7t [place] [address] Care Team Providers Care Special Weapons Unit Officer Name Role Phone Jimmy Boo MD Primary Care Provider [phone] Encounter Details Date Type Department Care Team ([facility] st Contact Info) Description 11/28/2023 Orders Only [facility] CHC MED & PEDS [address] [place], [place] [phone] Jimmy Boo MD 505 [place] [address] Social History Tobacco Use Types Packs/Day Years [...] the past 12 months, has t he [employer] gas, oil or water company threatened to [...] on filedocumented in this encounter Care Teams Special Weapons Unit Officer Relationship Specialty Start Date End Date Jimmy Boo MD [address] [place] [address] PCP - General Internal Medicine 05/03/13 documented as of this encounter
--- OUTSIDE RECORDS SUMMARY | 2024-06-12 10:34 | XMS_ITS | Encounter Summary ---
Author Organization [employer] Address [address] [place] [address] 7 [place] [address] Care Team Providers Care Bacon Skin Lifter Name Role Phone Jimmy Boo MD Primary Care Provider [phone] Reason for Referral * Neurology (Routine) - Authorized Specialty Diagnoses / Procedures Referred By Contelzbieta harris Referred To Contact Diagnoses Tingling in extremities Procedures Nerve conduction test Jimmy Boo MD [address] [place] [address] Phone: tel: fax: [address] Phone: tel: fax: Referral ID Status Reason Start Date Expiration Date V isits Requested Visits Authorized [id number] Authorized 06/04/2024 06/04/2025 1 1 Reason for Visit * Reason Comments Follow-up Chronic conditions Encounter Details Date Type Department Care Team (Late st Contact Info) Description 06/04/2024 1:45 PM EST Office Visit [facility] CHC MED & PEDS [address] [place], [place] [phone] Jimmy Boo MD [address] [place] [address] Ear pressure, bilateral (Primary Dx); Primary insomnia; Tingling in extremities; Elevated blood sugar Social History Tobacco Use Types Packs/Day Years Used Date Smoking Tobacco: Former Cigarettes Passive Smoke Exposure: Past Smokeless Tobacco: Never Alcohol Use Standard Drinks/Week Comments Defer 0 (1 standard drink = 0.6 oz pur e alcohol) Depression Answer Date Recorded Patient Health Questionnaire-9 Score 8 06/04/2024 Patient Health Questionnaire-9 Score 8 06/04/2024 Last PHQ-9: Questionnaire Data Not on file 0 06/04/2024 Housing Stability Answer Date Recorded What is [...] off services in your home? No 08/23/2023 Depression Answer Date Recorded Patient Health Questionnaire-2 Score 1 06/04/2024 Internet Access Answer Date Recorded Internet Access Q1 No 05/18/2024 Internet Access Q2 I cannot afford it 05/18/2024 Comments No Sex and Gender Information Value Date Recorded Sex Assigned at Female 02/01/2022 10:22 AM EDT Legal Sex Female 10:22 AM EDT Gender Identity Female 02/01/2022 10:22 AM EDT Sexual Orientation Straight 02/01/2022 10 :22 AM EDT documented as of this encounter Last Filed Vital Signs Vital Sign Reading Time Taken Comments Blood Pressure 123/74 06/04/2024 1:33 PM EST Pulse 78 06/04/2024 1:33 PM EST Temperature 36.4 ??C (97.5 ??F) 06/04/2024 1:33 PM ES T Respiratory Rate 14 06/04/2024 1:33 PM EST Oxygen Saturation 98% 06/04/2024 1:33 PM EST Inhaled Oxygen Concentration - - Weight 49.9 kg (110 lb) 06/04/2024 1:33 PM EST Height 149.9 cm (4' 11 ) 06/04/2024 1:33 PM EST Body Mass Index 22.22 06/04/2024 1:33 PM EST documented in this encounter Progress Notes * Jimmy Boo MD - 06/04/2024 1:45 PM EST Subjective Patient ID: Lakisha Hearn is a 58 y.o. female who presents for Follow-up (Chronic conditions ). HPI C/o having an URI 2 weeks ago. Now resolved. Patient admits of fullness of the left ear since her upper respiratory infection. C/o numbness of the digits 4 and 5 of the left hand x the last 2 to 3 weeks. Patient Active Problem List Diagnosis Anemia Asthma Depressive disorder Diverticulosis of colon Gastroesophageal reflux disease Malignant neoplasm of breast ([facility]) Multiple sclerosis ([facility]) Current Outpatient Medications on File Prior to Visit Medication Sig Dispense Refill albuterol 108 (90 Base) MCG/ACT inhaler INHALE 2 PUFFS BY MOUTH EVERY 4 TO 6 HOURS NEEDED 18 g 3 B Nheouyf-Ivutej-RI (B-100 TR) tablet controlled-release Take 1 tablet by mouth in the morning. Diclofenac Sodium 1 % gel To apply to the affected area 3 times a day 100 g 1 fexofenadine (Meliza) 180 MG tablet TAKE 1 TABLET BY MOUTH EVERY DAY IF NEEDED FOR ALLERGIES 90 tablet 0 pseudoephedrine (Sudafed) 30 MG tablet Take 1 tablet (30 mg) by mouth every 4 (four) hours if needed for congestion for up to 10 days. 30 tablet 0 Sod Fluoride-Potassium Nitrate 1.1-5 % paste Apply a smear of the paste on the brush, and brush twice daily. (Patient not taking: Reported on 08/18/2023) 112 g 0 sodium chloride (Fisher) 0.65 % nasal spray Administer 2 sprays into affected nostril(s) every 6 (six) hours. Sodium Fluoride 1.1 % cream Thatcher teeth for 2 minutes, morning and night. Spit, do not rinse. Do not eat or drink anything for 30 minutes following use. 112 g 3 Sodium Fluoride 5000 PPM 1.1 % gel APPLY A SMEAR OF THE TOOTHPASTE ON TOOTHBRUSH. BRUSH TWICE DAILY. SPIT, DO NOT RINSE. 100 g 0 zolpidem (Ambien) 10 MG tablet TAKE 1 TABLET BY MOUTH EVERYDAY AT BEDTIME 30 tablet 0 zoster vaccine-recombinant adjuvanted (Shingrix) 50 MCG/0.5ML vaccine Inject 0.5 mL into the shoulder, thigh, or buttocks. No current facility-administered medications on file prior to visit. Allergies Allergen Reactions Honey Bee Venom Iodinated Contrast Media Angioedema Other reaction(s): Pruritic rash Pineapple Sulfa Antibiotics Topiramate Other reaction(s): Trouble Breathing Review of Systems Constitutional: Negative for activity change, appetite change, chills and diaphoresis. HENT: Negative for dental problem, drooling, ear discharge, ear pain and hearing loss. Eyes: Negative for pain, discharge and itching. Respiratory: Negative for cough, choking and chest tightness. Cardiovascular: Negative for chest pain and leg swelling. Gastrointestinal: Negative for blood in stool and diarrhea. Genitourinary: Negative for difficulty urinating, dyspareunia, dysuria, enuresis, flank pain, frequency and genital sores. Musculoskeletal: Negative for arthralgias, gait problem and joint swelling. Skin: Negative for pallor. Neurological: Negative for dizziness, seizures, speech difficulty, light- headedness and numbness. Psychiatric/Behavioral: Negative for behavioral problems, confusion and decreased concentration. Objective BP 123/74 (BP Location: Left arm, Patient Position: Sitting, BP Cuff Size: Adult) Pulse 78 Temp97.5 ??F (36.4 ??C) (Oral) Resp 14 Ht 4' 11 (1.499 m) Wt 110 lb (49.9 kg) SpO2 98% BMI 22.22 kg/m?? Physical Exam Constitutional: General: She is not in acute distress. Appearance: Normal appearance. She is not ill-appearing, toxic-appearing or diaphoretic. Cardiovascular: Rate and Rhythm: Normal rate. Heart sounds: No murmur heard. Pulmonary: Effort: Pulmonary effort is normal. Neurological: General: No focal deficit present. Mental Status: She is alert. Psychiatric: Mood and Affect: Mood normal. Assessment/Plan Diagnoses and all orders for this visit: Ear pressure, bilateral Comments: c/o tinnitus of the left ear x the last 3 weeks. Normal otoscopic exam. Patient reports she is waiting for a hearing aid to come. Was already evaluated by audiology. Primary insomnia Comments: On Ambien Tingling in extremities Comments: to wear a wrist brace daily at bedtime NCS ordered. pt will be contacted w/ results. Orders: - Nerve conduction test; Future Elevated blood sugar Low-carb diet with regular exercise recommended. documented in this encounter Plan of Treatment Scheduled Orders Name Type Priority Associated Diagnoses Orde r Schedule Nerve conduction test Neurology Routine Tingling in extremities Expected: 06/04/2024 (Approximate), Expires: 06/04/2025 documented as of this encounter Visit Diagnoses Diagnosis Ear pressure, bilateral- Primary Primary insomnia Persistent disorder of initiating or maintaining sleep Tingling in extremities Elevated blood sugar Other abnormal glucose documented in this encounter Additional Health Concerns Assessment Noted Time PHQ-9 Depression Total Score: 8 06/05/19 25 2:12 PM EST documented as of this encounter Care Teams Bacon Skin Lifter Relationship Specialty Start Date End Date Jimmy Boo MD [address] [place] [address] PCP - General Internal Medicine 05/03/13 documented as of this encounter
--- OUTSIDE RECORDS SUMMARY | 2024-06-12 10:34 | XMS_ITS | Encounter Summary ---
Author Organization [employer] Address 75 [facility] 7t [place] [address] Care Team Providers Care Iron Worker Foreman Name Role Phone Jimmy Boo MD Primary Care Provider [phone] Encounter Details Date Type Department Care Team (Late st Contact Info) Description 08/17/2022 Abstract [facility] MED & PEDS [address] [place], [place] [phone] Jimmy Boo MD [address] [place] [address] Social History Tobacco Use Types Packs/Day Years [...] on file documented as of this encounter Procedures Procedure Name Priority Date/Time Associated Diagnosis Comments COLONOSCOPY Routine 06/04/2022 COLONOSCOPY Routine 06/25/2016 documented in this encounter Results * Colonoscopy (06/04/2022) Colonoscopy Normal Normal 06/04/2022 Narrative Jacey Pedro - 06/04/2022 2:23 PM EST Recommended 5 year follow up due to family hx of cancer ( see scanned report ) us Historical Provider HEALTH MAINTENANCE Final Result * Hm Colonoscopy (06/25/2016) Colonoscopy Normal Normal 06/25/2016 Jacey Donnelly - 06/25/2016 2:17 PM EDT Recommended 5 year follow up ( [facility]) us Historical Provider HEALTH MAINTENANCE Final Result documented in this encounter Visit Diagnoses Not on filedocumented in this encounter Care Teams Iron Worker Foreman Relationship Specialty Start Date End Date Jimmy Boo MD [address] [place] [address] PCP - General Internal Medicine 05/03/13 documented as of this encounter
--- OUTSIDE RECORDS SUMMARY | 2024-06-12 10:34 | XMS_ITS | Encounter Summary ---
Author Organization [employer] Address [address] [facility] [address] 7t [place] [address] Care Team Providers Care Environmental Department Manager Name Role Phone Jimmy Boo MD Primary Care Provider [phone] Reason for Visit * Reason Comments Med Refill Encounter Details Date Type Department Care Team ([facility] Contact Info) Description 10/03/2023 Refill [facility] CHC ADULT DENTAL [address] [place], [place] [phone] Mary Jane Massey DMD Social History Tobacco [...] on filedocumented in this encounter Care Teams Environmental Department Manager Relationship Specialty Start Date End Date Jimmy Boo MD [address] [place] [id number] PCP - General Internal Medicine 05/03/13 documented as of this encounter
--- OUTSIDE RECORDS SUMMARY | 2024-06-12 10:34 | XMS_ITS | Encounter Summary ---
Author Organization [employer] Address 75 [facility] 7t [place] [address] Care Team Providers Care Claim Service Representative Name Role Phone Jimmy Boo MD Primary Care Provider [phone] Reason for Visit * Reason Onset Date Comments chart prep 06/01/2024 Encounter Details Date Type Department Care Team ([facility] Contact Info) Description 06/01/2024 Telephone [facility] CHC MED & PEDS [address] [place], [place] [phone] Jimmy Boo MD [address] [place] [address] chart prep Social History Tobacco Use Types Packs/Day Years [...] off services in your home? No 08/23/2023 Internet Access Answer Date Recorded Internet Access [...] encounter Miscellaneous Notes * Telephone Encounter - Mohit Ortiz [place] - 06/01/2024 9:04 AM EST Chart Prep Labs: done Images: done Vaccines due: yes Referrals: complete Screenings: mammogram , pap smear Overdue care gaps: Sbirt, SDOH, PHQ-9 documented in this encounter Plan of Treatment Not on file documented as of this encounter Visit Diagnoses Not on filedocumented in this encounter Care Teams Claim Service Representative Relationship Specialty Start Date End Date Jimmy Boo MD [address] [place] [address] PCP - General Internal Medicine 05/03/13 documented as of this encounter
--- OUTSIDE RECORDS SUMMARY | 2024-06-12 10:34 | XMS_ITS | Encounter Summary ---
Author Organization [employer] Address [address] [facility] [address] 7t [place] [address] Care Team Providers Care Vp Scientific Name Role Phone Jimmy Boo MD Primary Care Provider [phone] Reason for Visit * Reason Comments Med Refill Encounter Details Date Type Department Care Team ([facility] Contact Info) Description 08/27/2023 Refill [facility] CHC ADULT DENTAL [address] [place], [place] [phone] Mary Jane Massey DMD Social History Tobacco [...] on filedocumented in this encounter Care Teams Vp Scientific Relationship Specialty Start Date End Date Jimmy Boo MD [address] [place] [address] PCP - General Internal Medicine 05/03/13 documented as of this encounter
--- OUTSIDE RECORDS SUMMARY | 2024-06-12 10:34 | XMS_ITS | Encounter Summary ---
Author Organization [employer] Address 75 [facility] 7t [place] [address] Care Team Providers Care Chili Maker Name Role Phone Jimmy Boo MD Primary Care Provider [phone] Encounter Details Date Type Department Care Team (Late st Contact Info) Description 05/16/2023 Abstract [facility] ADULT D[facility]AL [address] [place], [place] [phone] Mary Jane Massey DMD Social History Tobacco [...] on filedocumented in this encounter Care Teams Chili Maker Relationship Specialty Start Date End Date Jimmy Boo MD 505 [place] [address] PCP - General Internal Medicine 05/03/13 documented as of this encounter
--- OUTSIDE RECORDS SUMMARY | 2024-06-12 10:34 | XMS_ITS | Encounter Summary ---
Author Organization [employer] Address 75 [facility] 7t [place] [address] Care Team Providers Care Textiles And Clothing Teacher Name Role Phone Jimmy Boo MD Primary Care Provider [phone] Encounter Details Date Type Department Care Team (Late st Contact Info) Description 04/13/2023 Abstract [facility] ADULT DENTAL [address] [place], [place] [phone] Zahira Harris DDS [address] [place], [place] [phone] Social History Tobacco Use Types Packs/Day Years [...] on filedocumented in this encounter Care Teams Textiles And Clothing Teacher Relationship Specialty Start Date End Date Jimmy Boo MD [address] [place] [address] PCP - General Internal Medicine 05/03/13 documented as of this encounter
--- OUTSIDE RECORDS SUMMARY | 2024-06-12 10:34 | XMS_ITS | Encounter Summary ---
Author Organization [employer] Address 75 [facility] 7t [place] [address] Care Team Providers Care Nip Wrapper Name Role Phone Jimmy Boo MD Primary Care Provider [phone] Reason for Visit * Reason Onset Date Comments Med Refill 07/13/2023 Encounter Details Date Type Department Care Team (Late st Contact Info) Description 07/13/2023 Refill [facility] CHC ADULT DENTAL [address] [place] [address] Luis Guzman DDS [address] [place] [address] Social History Tobacco Use Types Packs/Day Years [...] on filedocumented in this encounter Care Teams Nip Wrapper Relationship Specialty Start Date End Date Jimmy Boo MD [address] [place] [phone] PCP - General Internal Medicine 05/03/13 documented as of this encounter
--- OUTSIDE RECORDS SUMMARY | 2024-06-12 10:34 | XMS_ITS | Encounter Summary ---
Author Organization [employer] Address [address] [place] [address] 7 [place] [address] Care Team Providers Care Pick Up Attendant Name Role Phone Jimmy Boo MD Primary Care Provider [phone] Encounter Details Date Type Department Care Team (Latest Contact Info) Description 03/14/2020 Abstract [facility] CONVERSIONS Dental, Provider, DDS Social History [...] on filedocumented in this encounter Care Teams Pick Up Attendant Relationship Specialty Start Date End Date Jimmy Boo MD [address] [place] [address] PCP - General Internal Medicine 05/03/13 documented as of this encounter
--- OUTSIDE RECORDS SUMMARY | 2024-06-12 10:34 | XMS_ITS | Encounter Summary ---
Author Organization [employer] Address 75 [facility] 7t [place] [address] Care Team Providers Care Sewing Machines Salesperson Name Role Phone Jimmy Boo MD Primary Care Provider [phone] Encounter Details Date Type Department Care Team ([facility] st Contact Info) Description 10/24/2023 Orders Only [facility] CHC MED & PEDS [address] [place], [place] [phone] Jimmy Boo MD [address] [place] [address] Herpes zoster without complication (Primary Dx) Social [...] t he electric, gas, oil or water [employer] threatened to shut off services in your [...] EDT Narrative 11/27/2023 2:15 PM EDT ? [facility] ?[address] ?[place] [address] ?XRay Report ? Signed ? Patient: Lakisha Hearn ?MR#: [id number] ?? [id number] ? : 1965 ?Acct:[id number] ? Age/Sex: 58 / F ?ADM Date: 11/23/23 ? Loc: HO.XRAY ? Attending Dr: Jimmy Boo MD ? Ordering Physician: Jimmy Boo MD ?? Date of Service: 11/23/23 ?? Procedure(s): XR finger RT min 2V ?? Accession Number(s): [id number] ? cc: Jimmy Boo MD ? EXAMINATION: [...] finger RT min 2V ?? IMPRESSION: ?? Jiid-mm-jeppwqip osteoarthritis of the first carpometacarpal joint with ?? degenerative changes slightly progressed compared with February 2019 ? Electronically signed by: ??Kuldip Dill MD ??11/27/2023 02:13 PM ?? EDT RP ? Dictated By: ?Kuldip Dill MD ? Signed By: ?<Electronically signed by Kuldip Dill MD in OV> ?11/27/23 1413 ? DD/ 1155 ? TD/TT: 11/23/23 1205 ? Fitness Specialist: WG ? Procedure Note Donjanaeahmethope, Image - 11/27/2023 [place] [address] XRay Report Signed Patient: Lakisha Hearn AMR#: [id number] : 1965Acct:[id number] Age/Sex: 58 / FADM Date: 11/23/23 Loc: [facility] Attending Dr: Jimmy Boo MD Ordering Physician: Jimmy Boo MD Date of Service: 11/23/23 Procedure(s): XR finger RT min 2V Accession Number(s): [id number] cc: Jimmy Boo MD EXAMINATION: XR FINGER, [...] unremarkable. XR/XR finger RT min 2V IMPRESSION: Lohe-vt-kctljjft osteoarthritis of the first carpometacarpal joint with degenerative changes slightly progressed compared with February 2019 Electronically signed by: Kuldip Dill MD 11/27/2023 02:13 PM EDT Dictated By: Kuldip Dill MD Signed By: <Electronically signed by Kuldip Dill MD inOV> 11/27/23 1413 DD/ 1155 TD/TT: 11/23/23 1205 Fitness Specialist: STEVE us Jimmy Boo MD IMG XR PROCEDURES Final Res ult documented in this encounter Visit Diagnoses Diagnosis Herpes zoster without complication- Primary documented in this encounter Care Teams Sewing Machines Salesperson Relationship Specialty Start Date End Date Jimmy Boo MD [address] [place] [address] PCP - General Internal Medicine 05/03/13 documented as of this encounter
--- OUTSIDE RECORDS SUMMARY | 2024-06-12 10:34 | XMS_ITS | Data Portability ---
Author Organization [employer] Address [address] [place] [phone] Care Team Providers Care Wet End Helper Name Role Phone [facility] OTHER [facility] OTHER Assessment Encounter Date Assessment Date Assessment LastModified by Organization Details LastModified Time 04/10/2024 04/10/2024 I provided real -time medical direction via phone for this encounter, and was available for additional phone based assistance as needed. I have reviewed the Assessment and Plan as documented by the Glass Robot Operator. We discussed the diagnostic uncertainty of home [...] to call 911- verbalized understanding of instruction [email or web address] Not available 04/10/2024 17:16:10 Plan of Treatment Reminders Order Date Submit Date Provider Last Modified By Organization Details Last Modified Time Details Appointments None recorded. Lab None recorded. Referral None recorded. Procedures None recorded. Surgeries None recorded. Imaging None recorded. Medication Orders prednisone 20 mg tablet 2024 025 [email or web address] Not available 14:39:14 prednisone 20 mg tablet 2024 025 [facility]/Pharmacy #[id number], [address] [facility] [place], [address], 14:39:17 Patient TargetsNo targets recorded. Patient InstructionsNo instructions recorded. Reason for Referral None Reported. Medical Equipment None Reported. Allergies Allergen ID Allergen Name Allergen Category Reaction Reaction Severity Criticality Documentation Date Start Date Code Code System Note Provider Name and Address Organization Details Recorded Time 59160 topiramat e medicatio n Not available Not available Not available 04/10/2024 75076 RxNorm Not Available [facility] - production 10:14:26 02689 Bactrim medicatio n Not available Not available Not available 04/10/2024 44156 9 RxNorm Not Available [facility] - production 10:14:26 47352 Iodinated contrast media (substanc e) medicatio n Not available Not available Not available 04/10/2024 73905 2004 SNOMED Cara Bauer MD [address] [place] [address],[address], [place], [phone], [employer] 14:33:28 78085 tamoxifen medicatio n Not available Not available Not available 04/10/2024 47397 RxNorm Cara Bauer MD [address] [place] [address],[address], [place], [phone], [employer] 14:33:55 Medications Name Sig Start Date Stop [...] % 149.86 cm 80 /min 18 /min 96084.1 2 g 147 mm[Hg] 94 mm[Hg] Not Available [employer] - production 5 14:14:44 Social History None recorded. Functional Status None recorded. Mental Status None recorded. Family History Nothing Reported. Medical History No medical history recorded. Gynecological HistoryNo gynecological history recorded. Obstetrics History GPAL:G 0 P 0 0 0 0 Past Encounters Encounter ID Performer Location Encounter Start Date Encounter Closed Date Diagnosis/Indication Diagnosis SNOMED-CT Code Diagnosis ICD10 Code Diagnosis Note [id number] Cara Bauer MD Main - [address] [phone] 04/10/2024 14:14:38 04/10/2024 18:10:27 Atypical facial pain 03963366 G50.1 Possible trigeminal neuralgia/ discussed gabapentin with [...] Gill Member ID Guarantor Name 04/10/[address] [facility] - DOS ON OR AFTER 2022 - DUAL ELIGIBLE - PRISON OPTIONS AND ONE CARE (MEDICARE REPLACEMENT/AD VANTAGE - HMO) Lakisha Hearn [id number] Lakisha Hearn Notes Date Note Type Note Provider Name and Address Organization Details Recorded Time 04/10/2024 text/html HPI: Patient with complaints of right sided face pain for 4-5 days. No fever, slight headache. Pain right worship forehead eye and face.Recovered COVID March 2024 ...................... ...................... ...................... ...................... ...................... ...................... ......... [facility] Nurse Triage Notes (Malia Kent - YVONNE): Chief Complaints: Headache PMH: Multiple Sclerosis, Cigarette Smoker, Gastroesophageal Reflux Disease (GERD) PMH Reviewed at 04/10/2024 - 10:14 Allergies Reviewed at 04/10/2024 - 10:14 Comments: HPI reviewed Allergies BEE ...................... ...................... ...................... ...................... ...................... ...................... ......... Glass Robot Operator Note From Kuldip Kidd: SC1 dispatched to [...] ...................... ...................... ...................... ...................... ...................... ...................... ......... [facility] Consulted: Cara Bauer ...................... ...................... ...................... ...................... ...................... ...................... ......... Disposition: Fulfilled SEGMD: Patient clearly reported to me she has a headache when she gets up in the am for months/ she describes that she has pain from her right lateral orbit to her right temporal /parietal area-it feels like lxyk-ops-dkdebjs with a sharp component, but it does [...] not a diabetic. Cara Bauer MD [address] [facility],[address], [place], [address], TAMIKO SMITH 04/10/2024 17:16:13 OBGyn Episode No OBEpisode recorded.
--- OUTSIDE RECORDS SUMMARY | 2024-06-12 10:34 | XMS_ITS | Encounter Summary ---
Author Organization [employer] Address [address] 7t [place] [address] Care Team Providers Care Tobacco Drying Machine Operator Name Role Phone Jimmy Boo MD Primary Care Provider [phone] Encounter Details Date Type Department Care Team (Late st Contact Info) Description 08/30/2023 Orders Only [facility] CHC MED & PEDS [address] [place], [place] [phone] Provider, MD Ynes Social History Tobacco Use [...] on filedocumented in this encounter Care Teams Tobacco Drying Machine Operator Relationship Specialty Start Date End Date Jimmy Boo MD [address] [place] [address] PCP - General Internal Medicine 05/03/13 documented as of this encounter
--- OUTSIDE RECORDS SUMMARY | 2024-06-12 10:34 | XMS_ITS | Encounter Summary ---
Author Organization [employer] Address [address] [facility] 7t [place] [address] Care Team Providers Care Reed Man Name Role Phone Jimmy Boo MD Primary Care Provider [phone] Reason for Visit * Reason Comments Med Refill Encounter Details Date Type Department Care Team ([facility] Contact Info) Description 03/16/2022 Refill [facility] MEDICINE [address] [place], [place] [phone] Jimmy Boo MD [address] [place], [place] [phone] Insomnia, unspecified Social History Tobacco Use Types [...] unspecified documented in this encounter Care Teams Reed Man Relationship Specialty Start Date End Date Jimmy Boo MD [address] [place] [address] PCP - General Internal Medicine 05/03/13 documented as of this encounter
--- OUTSIDE RECORDS SUMMARY | 2024-06-12 10:34 | XMS_ITS | Encounter Summary ---
Author Organization [employer] Address [address] [facility] 7t [place] [address] Care Team Providers Care Income Tax Administrator Name Role Phone Jimmy Boo MD Primary Care Provider [phone] Reason for Visit * Reason Comments Med Refill Encounter Details Date Type Department Care Team ([facility] Contact Info) Description 06/24/2022 Refill [facility] CHC MED & PEDS 505 [place], [place] [phone] Jimmy Boo MD 505 [place] [address] Primary insomnia Social History Tobacco Use Types [...] sleep documented in this encounter Care Teams Income Tax Administrator Relationship Specialty Start Date End Date Jimmy Boo MD [address] [place], [place] [phone] PCP - General Internal Medicine 05/03/13 documented as of this encounter
--- OUTSIDE RECORDS SUMMARY | 2024-06-12 10:34 | XMS_ITS | Encounter Summary ---
Author Organization [employer] Address [address] [facility] 7t [place] [address] Care Team Providers Care Contact Center Consultant Name Role Phone Jimmy Boo MD Primary Care Provider [phone] Reason for Visit * Reason Onset Date Comments Med Refill 05/24/2024 Encounter Details Date Type Department Care Team ([facility] Contact Info) Description 05/24/2024 Refill [facility] CHC MED & PEDS [address] [place], [place] [phone] Jimmy Boo MD 505 [place] [address] Primary insomnia Social History Tobacco Use Types [...] encounter Miscellaneous Notes * Telephone Encounter - Sangeetha Veronica - 05/24/2024 2:06 PM EST TC from pt requesting medication refill. Medications needing refill : zolpidem (Ambien) 10 MG tablet To be sent to: [facility]/pharmacy #[id number] - [place] - [address] [facility] documented in this encounter Plan of Treatment Not on file documented as of this encounter Visit Diagnoses Diagnosis Primary insomnia Persistent disorder of initiating or maintaining sleep documented in this encounter Care Teams Contact Center Consultant Relationship Specialty Start Date End Date Jimmy Boo MD [address] [place] [address] [place] [address] PCP - General Internal Medicine 05/03/13 documented as of this encounter
--- OUTSIDE RECORDS SUMMARY | 2024-06-12 10:34 | XMS_ITS | Encounter Summary ---
Author Organization [employer] Address [address] [facility] 7t [place] [address] Care Team Providers Care Glass Beveler Name Role Phone Jimmy Boo MD Primary Care Provider [phone] Encounter Details Date Type Department Care Team ([facility] st Contact Info) Description 07/07/2023 Orders Only [facility] CHC MED & PEDS [address] [place], [place] [phone] Jimmy Boo MD [address] [place] [address] Diverticulosis of colon (Primary Dx) Social History [...] as of this encounter Plan of Treatment Scheduled Orders [...] hemorrhage) documented in this encounter Care Teams Glass Beveler Relationship Specialty Start Date End Date Jimmy Boo MD [address] [place] [address] PCP - General Internal Medicine 05/03/13 documented as of this encounter
--- OUTSIDE RECORDS SUMMARY | 2024-06-12 10:34 | XMS_ITS | Encounter Summary ---
Author Organization [employer] Address [address] [facility] 7t [place] [address] Care Team Providers Care Financial Sales Manager Name Role Phone Jimmy Boo MD Primary Care Provider [phone] Reason for Visit * Reason Onset Date Comments Med Refill 04/24/2024 Encounter Details Date Type Department Care Team ([facility] Contact Info) Description 04/24/2024 Telephone [facility] MEDICINE [address] [place] [address] Jimmy Boo MD 505 [place], [place] [phone] Med Refill Social History Tobacco Use Types [...] 10 MG tablet To be sent to: [facility]/pharmacy #[id number] - [place] - [address] [facility] documented in this encounter Plan of Treatment Not on file documented as of this encounter Visit Diagnoses Not on filedocumented in this encounter Care Teams Financial Sales Manager Relationship Specialty Start Date End Date Jimmy Boo MD [address] [place] [address] [place] [address] PCP - General Internal Medicine 05/03/13 documented as of this encounter
--- OUTSIDE RECORDS SUMMARY | 2024-06-12 10:34 | XMS_ITS | Encounter Summary ---
Author Organization [employer] Address [address] [facility] 7t [place] [address] Care Team Providers Care Animal Care Attendant Name Role Phone Jimmy Boo MD Primary Care Provider [phone] Encounter Details Date Type Department Care Team ([facility] st Contact Info) Description 04/25/2024 Orders Only [facility] CHC MED & PEDS [address] [place], [place] [phone] Jimmy Boo MD 505 [place], [place] [phone] Primary insomnia Social History Tobacco Use Types [...] the past 12 months, has t he [employer] oil or water company threatened to shut [...] sleep documented in this encounter Care Teams Animal Care Attendant Relationship Specialty Start Date End Date Jimmy Boo MD [address] [place] [address] PCP - General Internal Medicine 05/03/13 documented as of this encounter
--- OUTSIDE RECORDS SUMMARY | 2024-06-12 10:34 | XMS_ITS | Encounter Summary ---
Author Organization [employer] Address [address] [place] [address] 7 [place] [address] Care Team Providers Care Sports Anchor Name Role Phone Jimmy Boo MD Primary Care Provider [phone] Encounter Details Date Type Department Care Team (Latest Contact Info) Description 08/16/2018 Abstract [facility] CONVERSIONS Dental, Provider, DDS Social History [...] on filedocumented in this encounter Care Teams Sports Anchor Relationship Specialty Start Date End Date Jimmy Boo MD 505 [place] [address] PCP - General Internal Medicine 05/03/13 documented as of this encounter
--- OUTSIDE RECORDS SUMMARY | 2024-06-12 10:34 | XMS_ITS | Encounter Summary ---
Author Organization [employer] Address [address] [place] [address] 7t [place] [address] Care Team Providers Care Line Worker Name Role Phone Jimmy Boo MD Primary Care Provider [phone] Reason for Referral * Consultation (Routine) - Closed Specialty Diagnoses / Procedures Referred By Contac t Referred To Contact Neurology Diagnoses Chronic tension-type headache, not intractable Jimmy Boo MD 505 [place] [address] Phone: tel: fax: Rory Garber MD [address] [place] [address] [place] [address] Phone: tel: fax: Referral ID Status Reason Start Date Expiration Date V isits Requested Visits Authorized [id number] Closed Specialty Services Required 03/18/2024 03/18/2025 1 1 Encounter Details Date Type Department Care Team (Late st Contact Info) Description 03/18/2024 Orders Only [facility] CHC MED & PEDS [address] [place], [place] [phone] Jimmy Boo MD 505 [place], [place] [phone] Chronic tension-type headache, not intractable (Primary Dx) [...] of this encounter Plan of Treatment Scheduled Referrals Name Type Priority Associated Diagnoses Orde r Schedule Referral to Neurology Outpatient Referral Routine Chronic tension-type headache, not intractable Expected: 03/18/2024 (Approximate), Expires: 03/18/2025 documented as of this encounter Visit Diagnoses Diagnosis Chronic tension-type headache, not intractable- Primary Chronic tension type headache documented in this encounter Care Teams Line Worker Relationship Specialty Start Date End Date Jimmy Boo MD [address] [place] [address] PCP - General Internal Medicine 05/03/13 documented as of this encounter
--- OUTSIDE RECORDS SUMMARY | 2024-06-12 10:34 | XMS_ITS | Encounter Summary ---
Author Organization [employer] Address [address] 7t [place] [address] Care Team Providers Care Analytics Leader Name Role Phone Jimmy Boo MD Primary Care Provider [phone] Encounter Details Date Type Department Care Team (Latest Contact Info) Description 06/04/2024 Travel Social History Tobacco Use Types Packs/Day [...] Diagnoses Not on filedocumented in this encounter Additional Health Concerns Assessment Noted Time PHQ-9 Depression Total Score: 8 06/05/19 25 2:12 PM EST documented as of this encounter Care Teams Analytics Leader Relationship Specialty Start Date End Date Jimmy Boo MD 505 [place] [address] PCP - General Internal Medicine 05/03/13 documented as of this encounter
--- OUTSIDE RECORDS SUMMARY | 2024-06-12 10:34 | XMS_ITS | Encounter Summary ---
Author Organization [employer] Address [address] [facility] 7t [place] [address] Care Team Providers Care Assembly Member Name Role Phone Jimmy Boo MD Primary Care Provider [phone] Reason for Visit * Reason Comments Pre-visit Planning SDOH screening negat dinah and Tobacco screening negative Encounter Details Date Type Department Care Team ([facility] st Contact Info) Description 05/18/2024 Patient Outreach [facility] MEDICINE [address] [place] [address] Jimmy Boo MD [address] [place] [phone] Pre-visit Planning (SDOH screening negative and Tobacco screening negative) Social History Tobacco Use Types Packs/Day Years [...] as of this encounter Progress Notes * Antoinette Bruno - 05/18/2024 3:12 PM EST CC Antoinette Lenz placed successful outbound call to patient for pre-visit planning. Patient name and confirmed. Patient confirms appt date and time, and has transportation arrangements. Biggest concern for appointment at this time is fatigue, tiredness and congestion. . Patient educated on extendedclinic hours on Mondays and Wednesdays, and Walk-In Urgent Care Located in [facility] of [facility]. Patient provided with after-hours line for [facility], , which offer night time triage service and optionto transfer to network operations specialist provider if needed. Patient advised to bring to appointment a photo id and insurance card. Appropriate screenings completed in anticipation of appointment. documented in this encounter Plan of Treatment Not on file documented as of this encounter Visit Diagnoses Not on filedocumented in this encounter Care Teams Assembly Member Relationship Specialty Start Date End Date Jimmy Boo MD [address] [place] [address] PCP - General Internal Medicine 05/03/13 documented as of this encounter
--- OUTSIDE RECORDS SUMMARY | 2024-06-12 10:34 | XMS_ITS | Encounter Summary ---
Author Organization [employer] Address [address] [facility] [address] 7t [place] [address] Care Team Providers Care Animal Pathologist Name Role Phone Jimmy Boo MD Primary Care Provider [phone] Reason for Visit * Reason Comments Med Refill Encounter Details Date Type Department Care Team ([facility] Contact Info) Description 11/03/2023 Refill [facility] CHC ADULT DENTAL [address] [place] [address] Luis Guzman DDS [address] [place] [address] Social History Tobacco Use Types Packs/Day Years [...] on filedocumented in this encounter Care Teams Animal Pathologist Relationship Specialty Start Date End Date Jimmy Boo MD [address] [place] [address] PCP - General Internal Medicine 05/03/13 documented as of this encounter
--- OUTSIDE RECORDS SUMMARY | 2024-06-12 10:34 | XMS_ITS | Encounter Summary ---
Author Organization [employer] Address [address] [facility] 7t [place] [address] Care Team Providers Care Assembler Motor Vehicle Name Role Phone Jimmy Boo MD Primary Care Provider [phone] Reason for Visit * Reason Comments Med Refill Encounter Details Date Type Department Care Team ([facility] Contact Info) Description 04/22/2022 Refill [facility] MEDICINE [address] [place], [place] [phone] Jimmy Boo MD [address] [place], [place] [phone] SOB (shortness of breath) Social History Tobacco [...] breath documented in this encounter Care Teams Assembler Motor Vehicle Relationship Specialty Start Date End Date Jimmy Boo MD [address] [place] [address] PCP - General Internal Medicine 05/03/13 documented as of this encounter
--- OUTSIDE RECORDS SUMMARY | 2024-06-12 10:34 | XMS_ITS | Encounter Summary ---
Author Organization [employer] Address [address] [facility] 7t [place] [address] Care Team Providers Care User Experience Designer Name Role Phone Jimmy Boo MD Primary Care Provider [phone] Encounter Details Date Type Department Care Team (Late st Contact Info) Description 06/25/2022 Orders Only [facility] CHC MED & PEDS 505 [place], [place] [phone] Gray Barnes MD 505 [place], [place] [phone] Primary insomnia; SOB (shortness of breath) Social [...] breath documented in this encounter Care Teams User Experience Designer Relationship Specialty Start Date End Date Jimmy Boo MD 505 [place], [place] [phone] PCP - General Internal Medicine 05/03/13 documented as of this encounter
--- OUTSIDE RECORDS SUMMARY | 2024-06-12 10:34 | XMS_ITS | Encounter Summary ---
Author Organization [employer] Address [address] [facility] 7t [place] [address] Care Team Providers Care Town Manager Name Role Phone Jimmy Boo MD Primary Care Provider [phone] Encounter Details Date Type Department Care Team (Late st Contact Info) Description 06/21/2023 Orders Only [facility] CHC MED & PEDS [address] [place], [place] [phone] Jimmy Boo MD [address] [place] [address] Primary insomnia Social History Tobacco Use Types [...] sleep documented in this encounter Care Teams Town Manager Relationship Specialty Start Date End Date Jimmy Boo MD 505 [place] [address] PCP - General Internal Medicine 05/03/13 documented as of this encounter
--- OUTSIDE RECORDS SUMMARY | 2024-06-12 10:35 | XMS_ITS | Clinical Summary ---
Author Organization [employer] Address 75 [facility] 7t [place] [address] Care Team Providers Care Milling Planer Operator Name Role Phone Jimmy Boo MD Primary Care Provider [phone] Allergies Active Allergy Reactions Criticality Noted Date Comments Honey Bee Venom 08/13/2013 Iodinated Contrast Media Angioedema 12/08/2017 Other reaction(s): Pruritic rash Pineapple 01/20/2024 Sulfa Antibiotics 04/10/2018 Topiramate 08/05/2011 Other reaction(s): Trouble Breathing Medications B Complex-Bioti n-FA (B-100 TR) tablet controlled-re lease Take 1 tablet by mouth in the morning. 06/24/19 21 Active sodium chloride (North) 0.65 % nasal spray Administer 2 sprays [...] 24 Active Sodium Fluoride 1.1 % cream Dunbar teeth for 2 minutes, morning and night. [...] BY MOUTH EVERYDAY AT BEDTIME 30 tablet 05/25/19 25 Active zolpidem (Ambien) 10 MG tabletIndicat ions:Primary insomnia TAKE 1 TABLET BY MOUTH EVERYDAY AT BEDTIME 30 tablet 04/25/19 25 025 Discontinued(Re order (will not trigger notification to Pharmacy)) Active Problems Problem Noted Date Diagnosed Date Diverticulosis of colon 06/21/2023 Malignant neoplasm of breast 06/21/2023 Anemia 08/13/2013 Asthma 08/13/2013 Gastroesophageal reflux disease 10/21/2011 Depressive disorder 08/05/2011 Multiple sclerosis 08/05/2011 Encounters Date Type Department Care Team Description 06/04/2024 1:45 PM EST Office Visit [facility] [address] [place] [address] Jimmy Boo MD Ear pressure, bilateral (Primary Dx); Primary insomnia; Tingling in extremities; Elevated blood sugar 06/04/2024 Travel 06/01/2024 Telephone [facility] [address] [place] [address] Jimmy Boo MD chart prep 05/24/2024 Refill [facility] [address] [place] [address] Jimmy Boo MD Primary insomnia 05/18/2024 Patient Outreach [address] [address] Jimmy Boo MD Pre-visit Planning (SDOH screening negative and Tobacco screening negative) 04/25/2024 Orders Only [facility] [address] [place] [address] Jimmy Boo MD Primary insomnia 04/24/[address] [address] Jimmy Boo MD Med Refill 04/10/[address] [address] Jimmy Boo MD Nurse Triage 03/29/2024 11:15 AM EST Telemedicine [facility] [address] [place] [address] Gray Barnes MD COVID (Primary Dx) 03/29/2024 Travel 03/29/[address] [address] Jimmy Boo MD FYI 03/29/[address] [address] Jimmy Boo MD Primary insomnia 03/20/2024 Telephone [facility] [address] [place] [address] Nelda Flores, RN Results 03/18/2024 Orders Only [facility] [address] [place] [address] Jimmy Boo MD Chronic tension-type headache, not intractable (Primary Dx) 03/14/2024 Refill [facility] [address] [place] [address] Jimmy Boo MD Ear pressure, bilateral from Last 3 Months Immunizations Name Administration [...] Mass Index 22.22 06/04/2024 1:33 PM EST Plan of Treatment Health Maintenance Due Date Last Done Comments CT Colonography 1965 FIT DNA/Cologuard 1965 FIT 1965 FOBT 1965 Sigmoidoscopy 1965 Hepatitis B Vaccines (1 of 3 - 19+ 3-dose series) 1984 Pneumococcal Vaccine: 50+ Years (2 of 2 - PCV) 11/26/2012 11/27/2011 Zoster Vaccines (2 of 3) 06/18/2016 04/23/2016 Cervical Cancer Screening 01/23/2024 HPV/Cotest 01/23/2024 01/22/2021, 08/0 08/2019, 08/15/2018 Pap Smear 01/23/2024 01/22/2021, 11/07/2019 Mammogram 01/28/2024 01/27/2023, 01/03, 11/16/2019, Additional history exists Dental Oral Exam 09/11/2024 03/12/2024, 12/2023, 12/28/2022 Dental Prophylaxis 09/11/2024 03/12/2024, 0 07/12/2023, 12/28/2022 Influenza Vaccine (#1) 2024 Postp oned from 12/04/2023 (Patient Refused) COVID-19 Vaccine (3 - season) 2025 12/18/2020, 11/27/2020 Postponed from 12/04/2023 (Patient Refused) DTaP/Tdap/Td Vaccines (1 - Tdap) 02/20/2025 02/18/2019 Postponed from 02/19/2019 (Patient Refused) Dental X-Ray: Bitewings 03/13/2025 03/12/20 24, 02/11/2023, 12/28/2022 SDOH Screening 05/18/2025 05/18/2024 Alcohol/Substance Use Screening 06/04/2025 06/04/2024 Depression Screening 06/04/2025 06/04/2024, 06/05/19 Tobacco Screening 06/04/2025 06/04/2024 Dental X-Ray: Full Mouth 03/13/2027 03/12/2024 Colonoscopy [...] Procedure Name Priority Date/Time Associated Diagnosis Comments PROPHYLAXIS - ADULT Routine 03/12/2024 2 :00 PM EST Partial edentulism, unspecified edentulism class INTRAORAL - COMPLETE SERIES OF RADIOGRAPHIC IMAGES Routine 03/12/2024 2:00 PM EST Partial edentulism, unspecified edentulism class PERIODIC ORAL EVALUATION - ESTABLISHED PATIENT Routine 03/12/2024 2:00 PM EST Partial edentulism, unspecified edentulism class HM MAMMOGRAPHY Routine 01/27/2023 HEPATITIS C ANTIBODY REFLEX Routine 11/09/2022 1:51 PM EDT HIV ANTIBODY/ANTIGEN ([place] [facility]) Routine 11/09/2022 1:51 PM EDT HM COLONOSCOPY Routine 06/04/2022 THINPREP IMAGING PAP AND HPV MRNA E6/E7 WITH REFLEX TO HPV 16,18/45 Routine 01/22/2021 11:53 AM EDT from Last 3 Months or Most Recently Relevant to Health Maintenance Results * Mammography (01/27/2023) Mammogram negative Anatomical Region Laterality Modality Other Narrative 01/27/2023 Bi rads -negative us Jimmy Boo MD HEALTH MAINTENANCE Final Re sult * Hepatitis C Antibody Reflex (11/09/2022 1:51 PM EDT) Hepatitis C Antibody Nonreactive Nonreactive [facility] Comment:Antibodies to HCV no t detected; does not exclude early acuteHCV infection. 11/09/2022 1:51 PM EDT 11/09/2022 5:49 PM EDT us Venecia Butcher [facility] BLOOD ORDERABLES Rach l Result [facility] [address] [place] [phone] * HIV Ab/Ag ([facility]) (11/09/2022 1:51 PM EDT) HIV AB/AG Nonreactive Nonreactive [facility] Comment:HIV-1 p24 Ag and/or HIV-1/HIV-2 Ab not detected.A test result that is nonreactive does not exclude thepossibility of exposure to or infection with HIV-1 and/orHIV-2. Nonreactive results in this assay for individualswith prior exposure to HIV-1 and/or HIV-2 may be due toantigen and antibody levels that are below the limit ofdetection of this assay.The [employer] Quality Process Engineer HIV Ag/Ab Combo assay result andsupplemental assay results should be interpreted inconjunction with the patient's clinical presentation,history and other laboratory results. If the results areinconsistent with clinical evidence, additional testing issuggested to confirm the result. 11/09/2022 1:51 PM EDT 11/09/2022 5:49 PM EDT Venecia NEFF LAB BLOOD ORDERABLES Rach sharif Result [facility] [address] [place] [address] [phone] * Hm Colonoscopy (06/04/2022) Colonoscopy Normal Normal 06/04/2022 Narrative Jacey Pedro - 06/04/2022 2:23 PM EST Recommended 5 year follow up due to family hx of cancer ( see scanned report ) Historical Provider MD HEALTH MAINTENANCE Final Result * THINPREP TIS PAP AND HPV mRNA E6/E7 REFLEX HPV 16,18/45 (01/22/2021 11:53 AM EDT) Clinical Information: None given [facility] COMMENT SEE COMMENT [facility] [...] has been evaluated with computer assisted technology. [facility] Radiologic Technologist Mammogram: SEE COMMENT [facility] Comment: DCR, CT(ASCP) CT screening location: [address] ??[id number] HPV nRNA E6/E7 Not Detected Not Detected [employer] [facility] Comment: Methodology: Process Expert-Mediated Amplification This assay detects E6/E7 viral messenger RNA (mRNA) from 14 high-risk HPV types (16,18,31,33,35,39,45,51,52,56,58,59,66,68). ? The analytical performance characteristics of this assay have been determined by [employer]. The modifications have not been cleared or approved by the FDA. This assay has been validated pursuant to the CLIA regulations and is used for clinical purposes. ?? For additional information, please refer to http://education.Scivantage/faq/HEO510i2 (This link if provided for information/ educational purposes only.) Interpretation/Res ult: SEE COMMENT [facility] Comment: Negative for intraepithelial lesion or malignancy. Atrophic pattern; predominantly parabasal cells LMP: NONE GIVEN [facility] Prev. BX: NONE GIVEN [facility] Prev. PAP: LEDA HPV+ 2019 NEG COLPO [facility] SOURCE: None given [facility] Statement Of Adequacy: SATISFACTORY FOR EVALUATION [facility] 01/22/2021 11:5 3 AM EDT us Venecia Butcher CNM LAB PATHOLOGY ORDERABLES Final Result Performing Organization Address City/State/[facility] Co de Phone Number [facility] [address] from Last 3 Months or Most Recently Relevant to Health Maintenance Insurance [facility] Care Teams Milling Planer Operator Relationship Specialty Start Date End Date Jimmy Boo MD [address] [place] [phone] PCP - General Internal Medicine 05/03/13
--- OUTSIDE RECORDS SUMMARY | 2024-06-12 10:35 | XMS_ITS | Encounter Summary ---
Author Organization [employer] Address 75 [facility] 7t [place] [address] Care Team Providers Care Chip Separator Name Role Phone Jimmy Boo MD Primary Care Provider [phone] Reason for Visit * Reason Comments Med Refill Encounter Details Date Type Department Care Team ([facility] Contact Info) Description 06/22/2022 Refill [facility] [address] [place], [place] [phone] Jimmy Boo MD [address] [place] [address] Primary insomnia Social History Tobacco Use Types [...] sleep documented in this encounter Care Teams Chip Separator Relationship Specialty Start Date End Date Jimmy Boo MD [address] [place], [place] [phone] PCP - General Internal Medicine 05/03/13 documented as of this encounter
--- OUTSIDE RECORDS SUMMARY | 2024-06-12 10:35 | XMS_ITS | Encounter Summary ---
Author Organization [employer] Address 75 [facility] 7t [place] [address] Care Team Providers Care Drop Hammer Mechanic Name Role Phone Jimmy Boo MD Primary Care Provider [phone] Reason for Visit * Reason Comments Med Refill Encounter Details Date Type Department Care Team ([facility] Contact Info) Description 06/23/2022 Refill [facility] [address] [place], [place] [phone] Jimmy Boo MD [address] [place] [address] Primary insomnia Social History Tobacco Use Types [...] sleep documented in this encounter Care Teams Drop Hammer Mechanic Relationship Specialty Start Date End Date Jimmy Boo MD [address] [place], [place] [phone] PCP - General Internal Medicine 05/03/13 documented as of this encounter
--- OUTSIDE RECORDS SUMMARY | 2024-06-12 10:35 | XMS_ITS | Encounter Summary ---
Author Organization [employer] Address 75 [facility] 7t [place] [address] Care Team Providers Care Real Estate Appraiser Name Role Phone Jimmy Boo MD Primary Care Provider [phone] Reason for Visit * Reason Onset Date Comments Medication Question 06/21/2022 Encounter Details Date Type Department Care Team ([facility] Contact Info) Description 06/21/2022 Telephone [facility] [address] [place], [place] [phone] Jimmy Boo MD [address] [place], [place] [phone] Medication Question Social History Tobacco Use Types [...] out. Pt requesting Rx be sent to [facility] pharmacy on [facility]. * Telephone Encounter - Sangeetha Veronica - [...] breath documented in this encounter Care Teams Real Estate Appraiser Relationship Specialty Start Date End Date Jimmy oBo MD [address] [place] [address] PCP - General Internal Medicine 05/03/13 documented as of this encounter
--- OUTSIDE RECORDS SUMMARY | 2024-06-12 10:35 | XMS_ITS | Encounter Summary ---
Author Organization [employer] Address 75 [facility] 7t [place] [address] Care Team Providers Care Brand Sales Manager Name Role Phone Jimmy oBo MD Primary Care Provider [phone] Reason for Visit * Reason Onset Date Comments case back from lab?? 10/19/2022 Encounter Details Date Type Department Care Team (Late st Contact Info) Description 10/19/2022 Telephone [facility]ULT D[facility]AL [address] [place] [address] Luis Guzman, DDS [address] [facility] [place] [address] case back from lab?? Social History Tobacco [...] on filedocumented in this encounter Care Teams Brand Sales Manager Relationship Specialty Start Date End Date Jimmy Boo MD [address] [place] [id number] PCP - General Internal Medicine 05/03/13 documented as of this encounter
--- OUTSIDE RECORDS SUMMARY | 2024-06-12 10:35 | XMS_ITS | Encounter Summary ---
Author Organization [employer] Address [address] [facility] [address] 7t [place] [address] Care Team Providers Care Watch And Clock Repairer Name Role Phone Jimmy Boo MD Primary Care Provider [phone] Reason for Visit * Reason Onset Date Comments rct appt 02/17/2023 Encounter Details Date Type Department Care Team ([facility] st Contact Info) Description 02/17/2023 Telephone C [facility] ADULT D[facility]AL [address] [place] [address] Tricia Davis, DDS [address] [place] [address] rct appt Social History Tobacco Use Types [...] on filedocumented in this encounter Care Teams Watch And Clock Repairer Relationship Specialty Start Date End Date Jimmy Boo MD [address] [place] [id number] PCP - General Internal Medicine 05/03/13 documented as of this encounter
--- OUTSIDE RECORDS SUMMARY | 2024-06-12 10:35 | XMS_ITS | Encounter Summary ---
Author Organization [employer] Address 75 [facility] 7t [place] [address] Care Team Providers Care Medical Orderly Name Role Phone Jimmy Boo MD Primary Care Provider [phone] Reason for Visit * Reason Comments Med Refill Encounter Details Date Type Department Care Team ([facility] Contact Info) Description 06/19/2022 Refill [facility] [address] [place], [place] [phone] Jimmy Boo MD [address] [place] [address] Primary insomnia Social History Tobacco Use Types [...] sleep documented in this encounter Care Teams Medical Orderly Relationship Specialty Start Date End Date Jimmy Boo MD [address] [place] [address] PCP - General Internal Medicine 05/03/13 documented as of this encounter
--- OUTSIDE RECORDS SUMMARY | 2024-06-12 10:35 | XMS_ITS | Patient Health Record ---
Author Organization [facility] Address [address] [place] [address] Care Team Providers Care Maori Physiotherapist Name Role Phone Jimmy Boo M.D. Primary Care Provider Un available Keyshawn Lopez Unavailable [phone] Allergies Allergen (clinical drug ingredient) Drug/Non Drug Allergy documented on EMR Reaction Allergy Type Onset Date Status topiramate Topamax Unknown Drug Allergy Active Reason For Referral No Information Medications Medication SIG (Take, Route, Frequency, Duration) Notes [...] one day for 1 day 03/27/2022 Active Immunizations Vaccine Route Administration Date Status Comme nts Influenza Unknown 03/17/2022 Refused Problems Problem Type SNOMED Code ICD Code Onset Dates Problem Status W/U Status Risk Notes Problem 274088447 Encounter for screening for malignant neoplasm of colon (Z12.11) Active confirmed Problem Screening for malignant neoplasm of rectum (464408846) Encounter for screening for malignant neoplasm of rectum (Z12.12) Active confirmed Problem 684059611 Family history o f colon cancer (Z80.0) Active confirmed Problem 30694533 Constipation, unspecified constipation type (K59.00) Active confirmed Problem Diverticulosis of colon (477838120) Diverticulosis of colon (K57.30) Active confirmed Plan Of Treatment Future Test Test Name Order Date COLONOSCOPY 12/19/2015 COLONOSCOPY 03/17/2022 Insurance Providers Payer Name Payer Address Payer Phone Subscriber Number Group Number Insured Name Patient Relationship to Insured Coverage Start Date Coverage End Date [facility] [address] [place] [address] [id number] PATRICIA DOOLEY Self - patient is the insured Medical (General) History Medical History History ICD Code Epilepsy--off seizure meds Multiple sclerosis Vertigo Denies OR,DM,CVA,Lung disease,renal dise ase Hx of breast cancer 2011--ri ght--lumpectomy, XRT , chemo--sees Dr. Samuel at [facility] x 3 Neg. colonoscopy in 2005, 06/2011, and 2016 Surgical History Surgery Date(Month/Year) Urethral diverticulum Right arm surgery BTL Exploratory laparoscopy Ear surgery for tubes Shoulder surgery--right shoulder 09/2015 Right breast cancer --lumpectomy Bone removed from left thumb Carpal tunnel on the left Cystoscopy 02/2022
--- OUTSIDE RECORDS SUMMARY | 2024-06-12 10:35 | XMS_ITS | Encounter Summary ---
Author Organization [employer] Address 75 [facility] 7t [place] [address] Care Team Providers Care Child Welfare Manager Name Role Phone Jimmy Boo MD Primary Care Provider [phone] Encounter Details Date Type Department Care Team (Late st Contact Info) Description 03/02/2023 Abstract [facility] ADULT DENTAL [address] [place], [place] [phone] Zahira Harris DDS [address] [place], [place] [phone] Social History Tobacco Use Types Packs/Day Years [...] on filedocumented in this encounter Care Teams Child Welfare Manager Relationship Specialty Start Date End Date Jimmy Boo MD [address] [place] [address] PCP - General Internal Medicine 05/03/13 documented as of this encounter
== END 2024-06-12 09:27 | disposition home or self-care (01) ==
LOC: HO.NEURO 09:26
PROVIDERS: PCP Internal Medicine; Visit Provider Internal Medicine
DX: R20.2 Paresthesia of skin (principal)
CPT/HCPCS: 95886; 95910

== ENCOUNTER 2024-06-13 09:02 | Day surgery (SDC) | payer OTHER, SELFPAY ==
--- NOTE | ~2024-06-13 | FL_ITS ---
EXAMINATION: XR LUMBAR PUNCTURE CLINICAL INFORMATION: MULTIPLE SCLEROSIS COMPARISON: None available. TECHNIQUE: Informed consent was obtained. Timeout was performed. Using fluoroscopic guidance, the L3-4 interlaminar space was identified, and the overlying skin prepped and draped in sterile fashion. Skin and subcutaneous tissues were anesthetized with 1% lidocaine. Subsequently, a 20-gauge Quincke spinal needle with advanced into the thecal sac, and clear CSF was noted at the needle hub. Opening pressure was measured at 8 cm H2O. Approximately 13.5 mL of clear CSF was obtained passively, and sent for laboratory analysis. The patient tolerated the procedure well. There were no immediate complications. 1 fluoroscopic spot image obtained. FLUOROSCOPY TIME: 3 seconds DOSE AREA PRODUCT: 94.6 uGy-m2 (microgray-meter squared) FL/FL guided lumbar puncture LP IMPRESSION: 1. Successful L3-4 fluoroscopic guided lumbar puncture. 2. Opening pressure measured at approximately 8 cm H2O. 3. 13.5 mL clear CSF obtained and sent for laboratory analysis. Electronically signed by: William Solis MD 06/13/2024 11:57 AM EDT
[2024-06-13 09:23] VITALS: BMI 22.3
[2024-06-13 09:31] VITALS: BP 134/87; PULSE 75; RESP 16; TEMP 36.3; O2SAT 100
[2024-06-13 09:54] LABS: MANUAL DIFF FLAG NO
[2024-06-13 09:57] LABS: Basophils Absolute Auto 0.1 X10*3/uL (0.0-0.2); Eosinophils Absolute Auto 0.1 X10*3/uL (0.0-0.4); Eosinophils Percent Auto 2.8 % (0-4); Hematocrit 39.9 % (37.0-47.0); Hemoglobin 13.3 g/dl (12.0-16.0); Imm Gran Abs Auto 0.01 X10*3/uL (0.00-0.03); Imm Gran Pct Auto 0.2 % (0.0-0.4); Lymphocytes Absolute Auto 1.4 X10*3/uL (1.2-4.9); Lymphocytes Percent Auto 26.7 % (20-40); Mean Corpuscular HGB Conc 33.3 g/dl (31.0-35.0); Mean Corpuscular Hemoglobin 31.5 pg (27.0-33.0); Mean Corpuscular Volume 94.5 fL (80.0-98.0); Mean Platelet Volume 9.5 fL (9.4-12.3); Monocytes Absolute Auto 0.7 X10*3/uL (0.1-1.2); Monocytes Percent Auto 12.8 % (2-11); Neutrophils Absolute Auto 2.9 x10*3/uL (2.0-8.3); Neutrophils Percent Auto 56.5 % (45-73); Platelet Count 248 X10*3/uL (160-400); Red Blood Count 4.22 X10*6/uL (4.20-5.50); Red Cell Distribution Width 13.1 % (11.0-16.0); White Blood Count 5.1 X10*3/uL (4.8-10.8)
[2024-06-13 10:04] LABS: INTERNATIONAL NORM RATIO 0.9 (0.9-1.1); Prothrombin Time 10.7 SEC (10.9-12.4)
[2024-06-13 10:06] LABS: Partial Thromboplastin Time 32.9 SEC (26.0-36.8)
[2024-06-13 11:20] VITALS: BP 109/72; PULSE 72; RESP 18; TEMP 36.6; O2SAT 97
[2024-06-13 11:50] VITALS: BP 107/78; PULSE 74; RESP 18; TEMP 36.8; O2SAT 100
[2024-06-13 11:54] LABS: Appearance CSF CLEAR
[2024-06-13 11:55] LABS: CSF Tube # 4; CSF Volume 4.5 ML; Color CSF COLORLESS
[2024-06-13 12:02] LABS: Glucose CSF 53 mg/dL; Total Protein CSF 52.8 mg/dL (15-45)
[2024-06-13 12:16] VITALS: BP 97/69; PULSE 65; RESP 19; TEMP 36.8; O2SAT 100
[2024-06-13 12:17] LABS: CSF Appearance Clear, Colorless; CSF Tube # 1
[2024-06-13] MEDS: Acetaminophen 325 MG TABLET 650 MG PO (12:21)
[2024-06-13 12:23] VITALS: BP 110/79
[2024-06-13 12:27] LABS: CSF Monos 27 %; Lymphocytes CSF 73 %; Red Blood Cell CSF 1 MM*3; White Blood Cell CSF 2 MM*3
[2024-06-13 14:04] LABS: Oligoclonal Serum Yes
[2024-06-15 23:19] LABS: Albumin 4.6 g/dL (3.6-5.1); Albumin, CSF 37.3 mg/dL (8.0-42.0); IgG 772 mg/dL (600-1640); IgG Synthesis Rate -5.2 mg/24 h (-9.9-3.3); IgG, CSF 2.3 mg/dL (0.8-7.7)
[2024-06-19 10:13] LABS: Oligoclonal Banding Absent (Absent)
== END 2024-06-13 13:00 | disposition home or self-care (01) ==
LOC: HO.SSS 09:02
PROVIDERS: Physician Assistant Surgical; Radiology Diagnostic Radiology; PCP Internal Medicine; Visit Provider Psychiatry & Neurology Neurology
PROC: 009U3ZZ Drainage of Spinal Canal, Percutaneous Approach (ICD-10-PCS; CPT 62270; principal; 2024-06-13 11:00)
DX: G35 Multiple sclerosis (principal); M79.7 Fibromyalgia; R93.0 Abnormal findings on diagnostic imaging of skull and head, not elsewhere classified; G43.109 Migraine with aura, not intractable, without status migrainosus; F41.9 Anxiety disorder, unspecified; R53.83 Other fatigue; R53.1 Weakness; R20.0 Anesthesia of skin; N30.10 Interstitial cystitis (chronic) without hematuria; J45.909 Unspecified asthma, uncomplicated; Z85.3 Personal history of malignant neoplasm of breast; Z92.21 Personal history of antineoplastic chemotherapy; Z92.3 Personal history of irradiation; Z79.1 Long term (current) use of non-steroidal anti-inflammatories (NSAID); Z79.899 Other long term (current) drug therapy; Z88.2 Allergy status to sulfonamides; Z88.8 Allergy status to other drugs, medicaments and biological substances; L23.1 Allergic contact dermatitis due to adhesives; Z91.041 Radiographic dye allergy status; Z87.891 Personal history of nicotine dependence
CPT/HCPCS: 36415; 62328; 82042; 82945; 83916; 84157; 85025; 85610; 85730; 87015; 87070; 87205; 89051; J2003

== ENCOUNTER → 2024-06-13 11:00 | Outpatient (BNV) | payer OTHER, SELFPAY | PROVIDERS: PCP Internal Medicine; Visit Provider Radiology Diagnostic Radiology | DX: G35 Multiple sclerosis (principal) | CPT/HCPCS: 62328 ==

== ENCOUNTER 2024-07-02 15:57 | Outpatient (REF) | payer OTHER, SELFPAY ==
--- NOTE | ~2024-07-02 | XR_ITS ---
CLINICAL HISTORY: Low back pain after a Lumbar puncture 2 weeks ago. 3 views lumbar spine Comparison: None Findings: Normal alignment. No acute fractures or dislocation. Multilevel disc space narrowing and endplate osteophyte formation, as well as facet hypertrophy. IMPRESSION: No acute findings. This document has been electronically signed by: José Miguel Benoit MD on 07/03/2024 15:56:45
--- OUTSIDE RECORDS SUMMARY | 2024-07-02 17:47 | XMS_ITS | Encounter Summary ---
Author Organization [employer] Address 75 [facility] 7t [place] [address] Care Team Providers Care Pier Worker Name Role Phone Jimmy Boo MD Primary Care Provider [phone] Encounter Details Date Type Department Care Team ([facility] st Contact Info) Description 04/25/2024 Orders Only [facility] MED & PEDS [address] [place], [place] [phone] Jimmy Boo MD [address] [place] [address] Primary insomnia Social History Tobacco Use Types [...] the past 12 months, has t he [employer], oil or water company threatened to shut [...] Care Team (Late st Contact Info) Description 07/19/2024 3:30 PM EDT Office Visit [facility] [address] [place] [address] Jimmy Boo MD [address] [place] [address] documented as of this encounter Visit Diagnoses Diagnosis Primary insomnia Persistent disorder of initiating or maintaining sleep documented in this encounter Care Teams Pier Worker Relationship Specialty Start Date End Date Jimmy Boo MD [address] [place] [address] PCP - General Internal Medicine 05/03/13 documented as of this encounter
--- OUTSIDE RECORDS SUMMARY | 2024-07-02 17:47 | XMS_ITS | Encounter Summary ---
Author Organization [employer] Address [address] [facility] [address] 7t [place] [address] Care Team Providers Care Rotary Helper Name Role Phone Jimmy Boo MD Primary Care Provider [phone] Reason for Visit * Reason Comments Med Refill Encounter Details Date Type Department Care Team ([facility] Contact Info) Description 12/02/2023 Refill [facility] CHC ADULT DENTAL [address] [place] [address] Luis Guzman DDS [address] [place] [address] Social History Tobacco Use Types Packs/Day Years [...] Description 07/19/2024 3:30 PM EDT Office Visit [facility] [address] [place] [address] Jimmy Boo MD [address] [place] [address] documented as of this encounter Visit Diagnoses Not on filedocumented in this encounter Care Teams Rotary Helper Relationship Specialty Start Date End Date Jimmy Boo MD [address] [place] [address] PCP - General Internal Medicine 05/03/13 documented as of this encounter
--- OUTSIDE RECORDS SUMMARY | 2024-07-02 17:47 | XMS_ITS | Encounter Summary ---
Author Organization [employer] Address [address] [facility] [address] 7t [place] [address] Care Team Providers Care Soda Fountain Operator Name Role Phone Jimmy Boo MD Primary Care Provider [phone] Reason for Visit * Reason Comments Med Refill Encounter Details Date Type Department Care Team ([facility] st Contact Info) Description 11/03/2023 Refill [facility] CHC ADULT DENTAL [address] [place] [address] Luis Guzman DDS [address] [place] [address] Social History Tobacco Use Types Packs/Day Years [...] 3:30 PM EDT Office Visit [facility] [address] [place] [address] Jimmy Boo MD [address] [place] [address] documented as of this encounter Visit Diagnoses Not on filedocumented in this encounter Care Teams Soda Fountain Operator Relationship Specialty Start Date End Date Jimmy Boo MD [address] [place] [address] PCP - General Internal Medicine 05/03/13 documented as of this encounter
--- OUTSIDE RECORDS SUMMARY | 2024-07-02 17:47 | XMS_ITS | Encounter Summary ---
Author Organization [employer] Address 75 [facility] 7t [place] [address] Care Team Providers Care Blindstitch Hemmer Name Role Phone Jimmy Boo MD Primary Care Provider [phone] Reason for Visit * Reason Comments Med Refill Encounter Details Date Type Department Care Team ([facility] st Contact Info) Description 12/29/2023 Refill [facility] MEDICINE [address] [place] [address] Jimmy Boo MD [address] [place] [address] Primary insomnia Social History Tobacco Use Types [...] Description 07/19/2024 3:30 PM EDT Office Visit [facility] PED[facility] [address] [place] [address] Jimmy Boo MD [address] [place] [address] documented as of this encounter Visit Diagnoses Diagnosis Primary insomnia Persistent disorder of initiating or maintaining sleep documented in this encounter Care Teams Blindstitch Hemmer Relationship Specialty Start Date End Date Jimmy Boo MD [address] [place] [address] PCP - General Internal Medicine 05/03/13 documented as of this encounter
--- OUTSIDE RECORDS SUMMARY | 2024-07-02 17:47 | XMS_ITS | Encounter Summary ---
Author Organization [employer] Address [address] [facility] 7t [place] [address] Care Team Providers Care Brazer Electronic Name Role Phone Jimmy Boo MD Primary Care Provider [phone] Reason for Visit * Reason Comments Med Refill Encounter Details Date Type Department Care Team ([facility] st Contact Info) Description 12/28/2023 Refill [facility] MEDICINE [address] [place] [address] Jimmy Boo MD [address] [place] [address] Primary insomnia Social History Tobacco Use Types [...] Description 07/19/2024 3:30 PM EDT Office Visit [facility] MED & PEDS [address] [place] [address] Jimmy Boo MD [address] [place] [address] documented as of this encounter Visit Diagnoses Diagnosis Primary insomnia Persistent disorder of initiating or maintaining sleep documented in this encounter Care Teams Brazer Electronic Relationship Specialty Start Date End Date Jimmy Boo MD [address] [place] [address] PCP - General Internal Medicine 05/03/13 documented as of this encounter
--- OUTSIDE RECORDS SUMMARY | 2024-07-02 17:47 | XMS_ITS | Encounter Summary ---
Author Organization [employer] Address [address] [facility] 7t [place] [address] Care Team Providers Care Cell Biology Scientist Name Role Phone Jimmy Boo MD Primary Care Provider [phone] Reason for Visit * Reason Comments Back Pain Encounter Details Date Type Department Care Team ([facility] Contact Info) Description 07/02/2024 3:20 PM EDT Office Visit [facility] CHC MED & PEDS [address] [place], [place] [phone] Jimmy Boo MD [address] [place] [address] Acute midline low back pain without sciatica (Primary Dx) Social History Tobacco Use Types [...] Sign Reading Time Taken Comments Blood Pressure 119/75 07/02/2024 3:11 PM EDT Pulse 75 07/02/2024 3:11 PM EDT Temperature 36.7 ??C (98 ??F) 07/02/2024 3:11 PM EDT Respiratory Rate 20 07/02/2024 3:11 PM EDT Oxygen Saturation 99% 07/02/2024 3:11 PM EDT Inhaled Oxygen Concentration - - Weight 49.9 kg (110 lb) 07/02/2024 3:11 PM EDT Height 149.9 cm (4' 11 ) 07/02/2024 3:11 PM EDT Body Mass Index 22.22 07/02/2024 3:11 PM EDT documented in this encounter Progress Notes * Jimmy Boo MD - 07/02/2024 3:20 PM EDT Subjective Patient ID: Lakisha Hearn is a 58 y.o. female who presents for Back Pain. Back Pain Associated symptoms include weakness. Pertinent negatives include no abdominal pain. Patient with history of possible multiple sclerosis. Had a lumbar puncture done about 2 weeks ago. Has been having low back pain at the site of the puncture since it was done. No associated fever. Mrs. Lakisha Hearn has not called her neurologist to get the results. She has not used any medication to help control her pain which is now constant and is getting progressively worse. She decidedto come today because the pain was at a level 8/10 this morning when trying to walk. Ms. Lakisha Hearn is also complaining of weakness of the upper limbs and lower limbs. No recent worsening of this symptom. Patient Active Problem List Diagnosis Anemia Asthma Depressive disorder Diverticulosis of colon Gastroesophageal reflux disease Malignant neoplasm of breast ([facility]) Multiple sclerosis ([facility]) Current Outpatient Medications on File Prior to Visit Medication Sig Dispense Refill albuterol 108 (90 Base) MCG/ACT inhaler INHALE 2 PUFFS BY MOUTH EVERY 4 TO 6 HOURS NEEDED 18 g 3 B Nacyigt-Gjlxkp-AL (B-100 TR) tablet controlled-release Take 1 tablet [...] on 08/18/2023) 112 g 0 sodium chloride ([place]) 0.65 % nasal spray Administer 2 sprays into affected nostril(s) every 6 (six) hours. Sodium Fluoride 1.1 % cream [place] teeth for 2 minutes, morning and night. [...] Breathing Review of Systems Constitutional: Negative for appetite change, chills and diaphoresis. Respiratory: Negative for cough, choking and chest tightness. Cardiovascular: Negative for leg swelling. Gastrointestinal: Negative for abdominal pain, anal bleeding and blood in stool. Musculoskeletal: Positive for back pain. Neurological: Positive for weakness. Psychiatric/Behavioral: Negative for decreased concentration, dysphoric mood and hallucinations. Objective BP 119/75 (BP Location: Left arm, Patient Position: Sitting, BP Cuff Size: Adult) Pulse 75 Temp98 ??F (36.7 ??C) (Oral) Resp 20 Ht 4' 11 (1.499 m) Wt 110 lb (49.9 kg) SpO2 99% BMI 22.22 kg/m?? Physical Exam Constitutional: General: She is not in acute distress. Appearance: Normal appearance. She is not ill-appearing, toxic-appearing or diaphoretic. Cardiovascular: Rate and Rhythm: Normal rate. Pulmonary: Effort: Pulmonary effort is normal. Musculoskeletal: General: No tenderness. Comments: No redness/swelling/tenderness to palpation of the site of the lumbar puncture. No fluctuation. Neurological: Mental Status: She is alert. Sensory: No sensory deficit. Motor: No weakness. Coordination: Coordination normal. Gait: Gait normal. Deep Tendon Reflexes: Reflexes normal. Assessment/Plan Diagnoses and all orders for this visit: Acute midline low back pain without sciatica Comments: Unclear etiology X-ray of the lumbar spine ordered Diclofenac gel recommended Patient will be called with the results of the x-ray Instructed to call the office of her neurologist as soon as possible to discuss the results. The results was reviewed: No oligoclonal band noted, mild elevation of total protein of the CSF. Orders: - XR Lumbar Spine 2-3 Views; Future - Diclofenac Sodium 1 % gel; To apply to the affected area 3 times a day documented in this encounter Plan of Treatment Upcoming Encounters Date Type Department Care Team ([facility] st Contact Info) Description 07/19/2024 3:30 PM EDT Office Visit [facility] MED & PEDS [address] [place] [address] Jimmy Boo MD [address] [place] [address] Scheduled Orders Name Type Priority Associated Diagnoses Orde r Schedule XR Lumbar Spine 2-3 Views Imaging Routine Acute midline low back pain without sciatica Expected: 07/02/2024, Expires: 07/02/2025 documented as of this encounter Visit Diagnoses Diagnosis Acute midline low back pain without sciatica- Primary documented in this encounter Additional Health Concerns Assessment Noted Time PHQ-9 Depression Total Score: 8 06/05/19 25 2:12 PM EST documented as of this encounter Care Teams Cell Biology Scientist Relationship Specialty Start Date End Date Jimmy Boo MD [address] [place] [address] PCP - General Internal Medicine 05/03/13 documented as of this encounter
--- OUTSIDE RECORDS SUMMARY | 2024-07-02 17:47 | XMS_ITS | Encounter Summary ---
Author Organization [employer] Address [address] [facility] 7t [place] [address] Care Team Providers Care Poker Supervisor Name Role Phone Jimmy Boo MD Primary Care Provider [phone] Reason for Visit * Reason Onset Date Comments Nurse Triage 10/24/2023 Encounter Details Date Type Department Care Team ([facility] Contact Info) Description 10/24/2023 Telephone [facility] CHC MED & PEDS [address] [place], [place] [phone] Jimmy Boo MD [address] [place] [address] Nurse Triage Social History Tobacco Use Types [...] PCP. Please see notes, Please contact at [phone] * Telephone Encounter - Diane Garcia RN [...] a video call tomorrow when PCP opens [facility] schedule 10/25/23. Pt. Would prefer for RX [...] caller accepted this outcome Contact pt at [phone] documented in this encounter Plan of Treatment Upcoming Encounters Date Type Department Care Team (Late st Contact Info) Description 07/19/2024 3:30 PM EDT Office Visit [facility] MED & PEDS [address] [place] [address] Jimmy Boo MD [address] [place] [address] documented as of this encounter Visit Diagnoses Diagnosis Primary insomnia Persistent disorder of initiating or maintaining sleep documented in this encounter Care Teams Poker Supervisor Relationship Specialty Start Date End Date Jimmy Boo MD [address] [place] [address] PCP - General Internal Medicine 05/03/13 documented as of this encounter
--- OUTSIDE RECORDS SUMMARY | 2024-07-02 17:47 | XMS_ITS | Encounter Summary ---
Author Organization [employer] Address [address] [facility] 7t [place] [address] Care Team Providers Care Engine Assembler Name Role Phone Jimmy Boo MD Primary Care Provider [phone] Encounter Details Date Type Department Care Team ([facility] st Contact Info) Description 11/28/2023 Orders Only [facility] CHC MED & PEDS [address] [place], [place] [phone] Jimmy Boo MD [address] [place] [address] Social History Tobacco Use Types Packs/Day Years [...] the past 12 months, has t he [employer], gas, oil or water [employer] threatened to shut off services in your [...] Description 07/19/2024 3:30 PM EDT Office Visit [facility] MED & PEDS [address] [place] [address] Jimmy Boo MD [address] [place] [address] documented as of this encounter Visit Diagnoses Not on filedocumented in this encounter Care Teams Engine Assembler Relationship Specialty Start Date End Date Jimmy Boo MD [address] [place] [address] PCP - General Internal Medicine 05/03/13 documented as of this encounter
--- OUTSIDE RECORDS SUMMARY | 2024-07-02 17:47 | XMS_ITS | Encounter Summary ---
Author Organization [employer] Address [address] [facility] 7t [place] [address] Care Team Providers Care Air Intelligence Officer Name Role Phone Jimmy Boo MD Primary Care Provider [phone] Encounter Details Date Type Department Care Team ([facility] st Contact Info) Description 10/24/2023 Orders Only [facility] CHC MED & PEDS [address] [place], [place] [phone] Jimmy Boo MD [address] [place] [address] Herpes zoster without complication (Primary Dx) Social [...] t he electric, gas, oil or water [employer] threatened to shut off services in [...] Upcoming Encounters Date Type Department Care Team ([facility] st Contact Info) Description 07/19/2024 3:30 PM EDT Office Visit [facility] CHC MED & PEDS [address] [place] [address] Jimmy Boo MD [address] [place] [address] documented as of this encounter Procedures Procedure Name Priority Date/Time Associated Diagnosis Comments XR FINGERS 2+ VIEWS RIGHT Routine 11/23/2023 11:55 AM EDT documented in this encounter Results * XR Fingers 2+ Views Right (11/23/2023 11:55 AM EDT) Anatomical Region Laterality Modality Upper Extremities, Fingers Right Radio graphic Imaging 11/23/2023 11:5 5 AM EDT Narrative 11/27/2023 2:15 PM EDT ? [facility] ?[address] ?[place] [address] ?XRay Report ? Signed ? Patient: Nadiya,Lakisha Alonzo ?MR#: [id number] ?? [id number] ? : 1965 ?Acct:[id number] ? Age/Sex: 58 / F ?ADM Date: 08/21/24 ? Loc: HO.XRAY ? Attending Shari Boo MD ? Ordering Physician: Jimmy Boo MD ?? Date of Service: 11/23/23 ?? Procedure(s): XR finger RT min 2V ?? Accession Number(s): [id number] ? cc: Jimmy Boo MD ? EXAMINATION: [...] finger RT min 2V ?? IMPRESSION: ?? Okxn-mz-jcvmuwou osteoarthritis of the first carpometacarpal joint with ?? degenerative changes slightly progressed compared with February 2019 ? Electronically signed by: ??Kuldip Dill MD ??11/27/2023 02:13 PM ?? EDT RP ? Dictated By: ?Kuldip Dill MD ? Signed By: ?<Electronically signed by Kuldip Dill MD in OV> ?11/27/23 1413 ? DD/ 1155 ? TD/TT: 11/23/23 1205 ? [employer] Floorperson: STEVE ? Procedure Note Lori Sosa - 11/27/2023 [place] [address] XRay Report Signed Patient: Lakisha Hearn AMR#: [id number] : 1965Acct:[id number] Age/Sex: 58 / FADM Date: 11/23/23 Loc: [facility] Attending Dr: Jimmy Boo MD Ordering Physician: Jimmy Boo MD Date of Service: 11/23/23 Procedure(s): XR finger RT min 2V Accession Number(s): [id number] cc: Jimmy Boo MD EXAMINATION: XR FINGER, [...] unremarkable. XR/XR finger RT min 2V IMPRESSION: Axzv-cp-bgjthujl osteoarthritis of the first carpometacarpal joint with degenerative changes slightly progressed compared with February 2019 Electronically signed by: Kuldip Dill MD 11/27/2023 02:13 PM EDT RP Dictated By: Kulidp Dill MD Signed By: <Electronically signed by Kuldip Dill MD inOV> 11/27/23 1413 DD/ 1155 TD/TT: 11/23/23 1205 [employer] Floorperson: WG Jimmy Boo MD IMG XR PROCEDURES Final Res ult documented in this encounter Visit Diagnoses Diagnosis Herpes zoster without complication- Primary documented in this encounter Care Teams Air Intelligence Officer Relationship Specialty Start Date End Date Jimmy Boo MD [address] [place] [address] PCP - General Internal Medicine 05/03/13 documented as of this encounter
--- OUTSIDE RECORDS SUMMARY | 2024-07-02 17:48 | XMS_ITS | Encounter Summary ---
Author Organization [facility] [employer] Address [address] [facility] [address] [place] [address] Care Team Providers Care Lockstitch Back Maker Name Role Phone Jimmy Boo MD Primary Care Provider [phone] Encounter Details Date Type Department Care Team ([facility] Contact Info) Description 08/17/2022 Abstract [facility] MED & PEDS [address] [place] [address] Jimmy Boo MD [address] [place] [address] Social History Tobacco Use Types Packs/Day Years [...] Department Care Team (Late Contact Info) Description 07/19/2024 3:30 PM EDT Office Visit [facility] MED & PEDS [address] [place] [address] Jimmy Boo MD [address] [place] [address] documented as of this encounter Procedures Procedure Name Priority Date/Time Associated Diagnosis Comments COLONOSCOPY Routine 06/04/2022 COLONOSCOPY Routine 06/25/2016 documented in this encounter Results * Hm Colonoscopy (06/04/2022) Colonoscopy Normal Normal 06/04/2022 Jacey Donnelly - 06/04/2022 2:23 PM EST Recommended 5 year follow up due to family hx of cancer ( see scanned report ) Historical Provider HEALTH MAINTENANCE Final Result * Colonoscopy (06/25/2016) Colonoscopy Normal Normal 06/25/2016 Jacey Donnelly - 06/25/2016 2:17 PM EDT Recommended 5 year follow up ( [facility]) Historical Provider HEALTH MAINTENANCE Final Result documented in this encounter Visit Diagnoses Not on filedocumented in this encounter Care Teams Lockstitch Back Maker Relationship Specialty Start Date End Date Jimmy Boo MD [address] [place] [address] PCP - General Internal Medicine 05/03/13 documented as of this encounter
--- OUTSIDE RECORDS SUMMARY | 2024-07-02 17:48 | XMS_ITS | Encounter Summary ---
Author Organization [employer] Address [address] [place] [address] 7t [place] [address] Care Team Providers Care Medical Scientific Liaison Name Role Phone Jimmy Boo MD Primary Care Provider [phone] Encounter Details Date Type Department Care Team (Latest Contact Info) Description 03/14/2020 Abstract [facility] CONVERSIONS Dental, Provider, DDS Social History Tobacco [...] Description 07/19/2024 3:30 PM EDT Office Visit [facility] CHC MED & PEDS [address] [place] [address] Jimmy Boo MD [address] [place] [address] documented as of this encounter Visit Diagnoses Not on filedocumented in this encounter Care Teams Medical Scientific Liaison Relationship Specialty Start Date End Date Jimmy Boo MD [address] [place] [address] PCP - General Internal Medicine 05/03/13 documented as of this encounter
--- OUTSIDE RECORDS SUMMARY | 2024-07-02 17:48 | XMS_ITS | Encounter Summary ---
Author Organization [employer] Address 75 [facility] 7t [place] [address] Care Team Providers Care Manager Of Purchasing Name Role Phone Jimmy Boo MD Primary Care Provider [phone] Reason for Visit * Reason Comments Med Refill Encounter Details Date Type Department Care Team ([facility] Contact Info) Description 04/22/2022 Refill [facility] MEDICINE [address] [place], [place] [phone] Jimmy Boo MD [address] [place], [place] [phone] SOB (shortness of breath) Social History Tobacco [...] Upcoming Encounters Date Type Department Care Team ([facility] Contact Info) Description 07/19/2024 3:30 PM EDT Office Visit [facility] CHC MED & PEDS [address] [place], [place] [phone] Jimmy Boo MD [address] [place], [place] [phone] documented as of this encounter Visit Diagnoses Diagnosis SOB (shortness of breath) Shortness of breath documented in this encounter Care Teams Manager Of Purchasing Relationship Specialty Start Date End Date Jimmy Boo MD [address] [facility] [address] PCP - General Internal Medicine 05/03/13 documented as of this encounter
--- OUTSIDE RECORDS SUMMARY | 2024-07-02 17:48 | XMS_ITS | Encounter Summary ---
Author Organization [employer] Address [address] [place] [address] 7 [place] [address] Care Team Providers Care Commissioned Fire Officer Name Role Phone Jimmy Boo MD Primary Care Provider [phone] Reason for Visit * Reason Comments Med Refill Encounter Details Date Type Department Care Team ([facility] Contact Info) Description 06/19/2022 Refill [facility] MED & PEDS [address] [place] [address] Jimmy Boo MD [address] [place] [address] Primary insomnia Social History Tobacco Use Types [...] Upcoming Encounters Date Type Department Care Team ([facility] Contact Info) Description 07/19/2024 3:30 PM EDT Office Visit [facility] CH[facility] MED & PEDS [address] [place], [place] [phone] Jimmy Boo MD [address] [place], [place] [phone] documented as of this encounter Visit Diagnoses Diagnosis Primary insomnia Persistent disorder of initiating or maintaining sleep documented in this encounter Care Teams Commissioned Fire Officer Relationship Specialty Start Date End Date Jimmy Boo MD [address] [place] [address] PCP - General Internal Medicine 05/03/13 documented as of this encounter
--- OUTSIDE RECORDS SUMMARY | 2024-07-02 17:48 | XMS_ITS | Encounter Summary ---
Author Organization [facility] [employer] Address [address] [facility] 7t [place] [address] Care Team Providers Care Nursing Informatics Specialist Name Role Phone Jimmy Boo MD Primary Care Provider [phone] Encounter Details Date Type Department Care Team (Late Contact Info) Description 04/13/2023 Abstract [facility] [address] [place], [place] [phone] Zahira Harris DDS [address] [place], [place] [phone] Social History Tobacco Use Types Packs/Day Years [...] [facility] [address] [place], [place] [phone] Jimmy Boo MD [address] [place], [place] [phone] documented as of this encounter Visit Diagnoses Not on filedocumented in this encounter Care Teams Nursing Informatics Specialist Relationship Specialty Start Date End Date Jimmy Boo MD [address] [place] [address] PCP - General Internal Medicine 05/03/13 documented as of this encounter
--- OUTSIDE RECORDS SUMMARY | 2024-07-02 17:48 | XMS_ITS | Data Portability ---
Author Organization [employer] Address [address] [place] [address] Care Team Providers Care Liberal Arts Teacher Name Role Phone [facility] OTHER [facility] OTHER Assessment Encounter Date Assessment Date Assessment LastModified by Organization Details LastModified Time 04/10/2024 04/10/2024 I provided real -time medical direction via phone for this encounter, and was available for additional phone based assistance as needed. I have reviewed the Assessment and Plan as documented by the Grain Elevator Motor Starter. We discussed the diagnostic uncertainty of home [...] to call 911- verbalized understanding of instruction [email or web address] Not available 04/10/2024 17:16:10 Plan of Treatment Reminders Order Date Submit Date Provider Last Modified By Organization Details Last Modified Time Details Appointments None recorded. Lab None recorded. Referral None recorded. Procedures None recorded. Surgeries None recorded. Imaging None recorded. Medication Orders prednisone 20 mg tablet 2024 025 [email or web address] Not available 14:39:14 prednisone 20 mg tablet 2024 025 [facility]arm[facility] #[id number], [address] [place], [address], 14:39:17 Patient TargetsNo targets recorded. Patient InstructionsNo instructions recorded. Reason for Referral None Reported. Medical Equipment None Reported. Allergies Allergen ID Allergen Name Allergen Category Reaction Reaction Severity Criticality Documentation Date Start Date Code Code System Note Provider Name and Address Organization Details Recorded Time 12385 topiramat e medicatio n Not available Not available Not available 04/10/2024 43118 RxNorm Not Available [employer] - production 10:14:26 55134 Bactrim medicatio n Not available Not available Not available 04/10/2024 48147 9 RxNorm Not Available [facility] - production 10:14:26 21151 Iodinated contrast media (substanc e) medicatio n Not available Not available Not available 04/10/2024 59081 2004 SNOMED Cara Bauer MD [address] [place] [address],[address], [place], [address], [employer] 14:33:28 35536 tamoxifen medicatio n Not available Not available Not available 04/10/2024 20868 RxNorm Cara Bauer MD [address] [place] [address],[address], [place], [address], [employer] 14:33:55 Medications Name Sig Start Date Stop [...] % 149.86 cm 80 /min 18 /min 05319.1 2 g 147 mm[Hg] 94 mm[Hg] Not Available [employer] - production 5 14:14:44 Social History None recorded. Functional Status None recorded. Mental Status None recorded. Family History Nothing Reported. Medical History No medical history recorded. Gynecological HistoryNo gynecological history recorded. Obstetrics History GPAL:G 0 P 0 0 0 0 Past Encounters Encounter ID Performer Location Encounter Start Date Encounter Closed Date Diagnosis/Indication Diagnosis SNOMED-CT Code Diagnosis ICD10 Code Diagnosis Note [id number] Cara Bauer MD Main - [address] [phone] 04/10/2024 14:14:38 04/10/2024 18:10:27 Atypical facial pain 37828446 G50.1 Possible trigeminal neuralgia/ discussed gabapentin with [...] Gill Member ID Guarantor Name 04/10/2024 1 [facility] - DOS ON OR AFTER 2022 - DUAL ELIGIBLE - [employer] OPTIONS AND ONE CARE (MEDICARE REPLACEMENT/AD VANTAGE - HMO) Lakisha Hearn [id number] Lakisha Hearn Notes Date Note Type Note Provider Name and Address Organization Details Recorded Time 04/10/2024 text/html HPI: Patient with complaints of right sided face pain for 4-5 days. No fever, slight headache. Pain right quaker forehead eye and face.Recovered COVID March 2024 ...................... ...................... ...................... ...................... ...................... ...................... ......... CRC Nurse Triage Notes (Malia Kent - YVONNE): Chief Complaints: Headache PMH: Multiple Sclerosis, Cigarette Smoker, Gastroesophageal Reflux Disease (GERD) PMH Reviewed at 04/10/2024 - 10:14 Allergies Reviewed at 04/10/2024 - 10:14 Comments: HPI reviewed Allergies BEE ...................... ...................... ...................... ...................... ...................... ...................... ......... [employer] Elevator [employer] Starter Note From Kuldip Kidd: SC1 dispatched to [...] ...................... ...................... ...................... ...................... ...................... ...................... ......... [facility] Consulted: Cara Bauer ...................... ...................... ...................... ...................... ...................... ...................... ......... Disposition: Fulfilled SEGMD: Patient clearly reported to me she has a headache when she gets up in the am for months/ she describes that she has pain from her right lateral orbit to her right temporal /parietal area-it feels like oijb-bzj-szfqibm with a sharp component, but it does [...] not a diabetic. Cara Bauer MD [address] [facility],[address], [place], [address], TAMIKO SMITH 04/10/2024 17:16:13 OBGyn Episode No OBEpisode recorded.
--- OUTSIDE RECORDS SUMMARY | 2024-07-02 17:48 | XMS_ITS | Encounter Summary ---
Author Organization [employer] Address [address] [place] [address] Care Team Providers Care Polysomnograph Tech Name Role Phone Jimmy Boo MD Primary Care Provider [phone] Reason for Visit * Reason Comments Med Refill Encounter Details Date Type Department Care Team ([facility] Contact Info) Description 08/27/2023 Refill [facility] CHC ADULT DENTAL [address] [place], [place] [phone] Mary Jane Massey DMD Social History Tobacco [...] Description 07/19/2024 3:30 PM EDT Office Visit [facility] MED & PEDS [address] [place] [address] Jimmy Boo MD 505 [place] [address] documented as of this encounter Visit Diagnoses Not on filedocumented in this encounter Care Teams Polysomnograph Tech Relationship Specialty Start Date End Date Jimmy Boo MD [address] [place] [address] PCP - General Internal Medicine 05/03/13 documented as of this encounter
--- OUTSIDE RECORDS SUMMARY | 2024-07-02 17:48 | XMS_ITS | Encounter Summary ---
Author Organization [employer] Address [address] [facility] 7t [place] [address] Care Team Providers Care Distribution Systems Serviceperson Name Role Phone Jimmy Boo MD Primary Care Provider [phone] Reason for Visit * Reason Comments Med Refill Encounter Details Date Type Department Care Team ([facility] Contact Info) Description 03/16/2022 Refill [facility] MEDICINE [address] [place], [place] [phone] Jimmy Boo MD [address] [place] [address] Insomnia, unspecified Social History Tobacco Use Types [...] ([facility] Contact Info) Description 07/19/2024 3:30 PM EDT Office Visit [facility] CHC MED & PEDS [address] [place], [place] [phone] Jimmy Boo MD [address] [place], [place] [phone] documented as of this encounter Visit Diagnoses Diagnosis Insomnia, unspecified documented in this encounter Care Teams Distribution Systems Serviceperson Relationship Specialty Start Date End Date Jimmy Boo MD [address] [place] [address] PCP - General Internal Medicine 05/03/13 documented as of this encounter
--- OUTSIDE RECORDS SUMMARY | 2024-07-02 17:48 | XMS_ITS | Encounter Summary ---
Author Organization [employer] Address [address] [facility] 7t [place] [address] Care Team Providers Care Core Layer Machine Operator Name Role Phone Jimmy Boo MD Primary Care Provider [phone] Reason for Visit * Reason Onset Date Comments Nurse Triage 07/02/2024 Encounter Details Date Type Department Care Team ([facility] st Contact Info) Description 07/02/2024 Telephone [facility] MEDICINE [address] [place] [address] Jimmy Boo MD [address] [place] [address] Nurse Triage Social History Tobacco Use Types [...] Telephone Encounter - Kati Darling RN - 07/02/2024 12:00 PM EDT Triage call Pt reports mid to low back pain. Pt had lumbar puncture on 06/14/24 at [facility] and has had some increased back pain since then. Pt denies redness, swelling at site but, is concerned as to the length of time having pain. ASK apt [facility] today at 320pm. Pt agrees with disposition and Insuranceis verified as active prior to booking. Protocol Used: Back Pain (Adult) Protocol-Based Disposition: See in Office or Video Visit within 3 Days Video visit not offered Positive Triage Question: * Moderate back pain (e.g., interferes with normal activities) and present > 3 days * All higher-acuity triage questions were negative Care Advice Discussed: * Reassurance and Education - Back Pain * Reasons To Call Back - Fever occurs - Numbness or weakness occurs - Loss of control of your bladder or bowel - Severe pain not better after taking pain medicines - Pain begins to shoot into the leg - Pain lasts over 2 weeks - Pain becomes worse - You become worse * Telephone Encounter - Veronica Andrews - 07/02/2024 11:39 AM EDT Symptom: Back Pain - Not From Injury Outcome: Schedule an appointment to be seen within 3 days Reason: Caller denied all higher acuity questions The caller accepted this outcome. [phone] Pt had lumbar procedure on june 14. documented in this encounter Plan of Treatment Upcoming Encounters Date Type Department Care Team (Late st Contact Info) Description 07/19/2024 3:30 PM EDT Office Visit [facility] MED & PEDS [address] [place] [address] Jimmy Boo MD [address] [place] [address] documented as of this encounter Visit Diagnoses Not on filedocumented in this encounter Additional Health Concerns Assessment Noted Time PHQ-9 Depression Total Score: 8 06/05/19 25 2:12 PM EST documented as of this encounter Care Teams Core Layer Machine Operator Relationship Specialty Start Date End Date Jimmy Boo MD [address] [place] [address] PCP - General Internal Medicine 05/03/13 documented as of this encounter
--- OUTSIDE RECORDS SUMMARY | 2024-07-02 17:48 | XMS_ITS | Encounter Summary ---
Author Organization [facility] [employer] Address [address] [place] [address] 7t [place] [address] Care Team Providers Care Molasses And Caramel Operator Name Role Phone Jimmy Boo MD Primary Care Provider [phone] Encounter Details Date Type Department Care Team (Latest Contact Info) Description 08/16/2018 Abstract [facility] CONVERSIONS Dental, Provider, DDS Social History [...] 07/19/2024 3:30 PM EDT Office Visit [facility] CHC MED & PEDS [address] [place] [address] Jimmy Boo MD [address] [place] [address] documented as of this encounter Visit Diagnoses Not on filedocumented in this encounter Care Teams Molasses And Caramel Operator Relationship Specialty Start Date End Date Jimmy Boo MD [address] [place] [address] PCP - General Internal Medicine 05/03/13 documented as of this encounter
--- OUTSIDE RECORDS SUMMARY | 2024-07-02 17:48 | XMS_ITS | Encounter Summary ---
Author Organization [employer] Address [address] [place] [address] 7 [place] [address] Care Team Providers Care Modeling Instructor Name Role Phone Jimmy Boo MD Primary Care Provider [phone] Reason for Visit * Reason Comments Med Refill Encounter Details Date Type Department Care Team ([facility] Contact Info) Description 06/24/2022 Refill [facility] MED & PEDS [address] [place] [address] Jimmy Boo MD 505 [place] [address] Primary insomnia Social History Tobacco Use Types [...] Upcoming Encounters Date Type Department Care Team ([facility] Contact Info) Description 07/19/2024 3:30 PM EDT Office Visit [facility] CHC MED & PEDS [address] [place], [place] [phone] Jimmy Boo MD [address] [place], [place] [phone] documented as of this encounter Visit Diagnoses Diagnosis Primary insomnia Persistent disorder of initiating or maintaining sleep documented in this encounter Care Teams Modeling Instructor Relationship Specialty Start Date End Date Jimmy Boo MD [address] [place] [address] PCP - General Internal Medicine 05/03/13 documented as of this encounter
--- OUTSIDE RECORDS SUMMARY | 2024-07-02 17:48 | XMS_ITS | Encounter Summary ---
Author Organization [employer] Address [address] [place] [address] 7 [place] [address] Care Team Providers Care Procedures Analyst Name Role Phone Jimmy Boo MD Primary Care Provider [phone] Reason for Referral * Consultation (Routine) - Closed Specialty Diagnoses / Procedures Referred By Contac t Referred To Contact Neurology Diagnoses Chronic tension-type headache, not intractable Jimmy Boo MD [address] [place] [address] Phone: tel: fax: Rory Garber MD [address] [place] [address] [place] [address] Phone: tel: fax: Referral ID Status Reason Start Date Expiration Date V isits Requested Visits Authorized [id number] Closed Specialty Services Required 03/18/2024 03/18/2025 1 1 Encounter Details Date Type Department Care Team (Late st Contact Info) Description 03/18/2024 Orders Only [facility] CHC MED & PEDS [address] [place], [place] [phone] Jimmy Boo MD [address] [place], [place] [phone] Chronic tension-type headache, not intractable (Primary Dx) [...] Description 07/19/2024 3:30 PM EDT Office Visit [facility] MED & PEDS [address] [place] [address] Jimmy Boo MD [address] [place] [address] Scheduled Referrals Name Type Priority Associated Diagnoses Orde r Schedule Referral to Neurology Outpatient Referral Routine Chronic tension-type headache, not intractable Expected: 03/18/2024 (Approximate), Expires: 03/18/2025 documented as of this encounter Visit Diagnoses Diagnosis Chronic tension-type headache, not intractable- Primary Chronic tension type headache documented in this encounter Care Teams Procedures Analyst Relationship Specialty Start Date End Date Jimmy Boo MD [address] [place] [address] PCP - General Internal Medicine 05/03/13 documented as of this encounter
--- OUTSIDE RECORDS SUMMARY | 2024-07-02 17:48 | XMS_ITS | Encounter Summary ---
Author Organization [employer] Address [address] [facility] 7t [place] [address] Care Team Providers Care Pit Inspector Name Role Phone Jimmy Boo MD Primary Care Provider [phone] Reason for Visit * Reason Onset Date Comments Med Refill 04/24/2024 Encounter Details Date Type Department Care Team ([facility] Contact Info) Description 04/24/2024 Telephone [facility] MEDICINE [address] [place] [address] Jimmy Boo MD [address] [place], [place] [phone] Med Refill Social History Tobacco Use Types [...] 10 MG tablet To be sent to: [facility]/pharmacy #[id number] - [place] - [address] [facility] documented in this encounter Plan of Treatment Upcoming Encounters Date Type Department Care Team (Late st Contact Info) Description 07/19/2024 3:30 PM EDT Office Visit [facility] MED & PEDS 505 [place] [address] Jimmy Boo MD [address] [place] [address] documented as of this encounter Visit Diagnoses Not on filedocumented in this encounter Care Teams Pit Inspector Relationship Specialty Start Date End Date Jimmy Boo MD [address] [place] [address] PCP - General Internal Medicine 05/03/13 documented as of this encounter
--- OUTSIDE RECORDS SUMMARY | 2024-07-02 17:48 | XMS_ITS | Encounter Summary ---
Author Organization [employer] Address [address] 7[address] [place] [address] Care Team Providers Care Electronic Gluing Machine Operator Name Role Phone Jimmy Boo MD Primary Care Provider [phone] Encounter Details Date Type Department Care Team (Late st Contact Info) Description 08/30/2023 Orders Only [facility] CHC MED & PEDS [address] [place], [place] [phone] Provider, MD Ynes Social History Tobacco Use [...] 3:30 PM EDT Office Visit [facility] CHC MED & PEDS [address] [place] [address] Jimmy Boo MD [address] [place] [address] documented as of this encounter Procedures Procedure [...] on filedocumented in this encounter Care Teams Electronic Gluing Machine Operator Relationship Specialty Start Date End Date Jimmy Boo MD [address] [place] [address] PCP - General Internal Medicine 05/03/13 documented as of this encounter
--- OUTSIDE RECORDS SUMMARY | 2024-07-02 17:48 | XMS_ITS | Patient Health Record ---
Author Organization [facility] Address [address] [place] [address] Care Team Providers Care Tongue And Groove Machine Operator Name Role Phone Jimmy Boo M.D. Primary Care Provider Un available Keyshawn Lopez Unavailable [phone] Allergies Allergen (clinical drug ingredient) Drug/Non Drug [...] Problem Status W/U Status Risk Notes Problem [id number] Encounter for screening for malignant neoplasm of colon (Z12.11) Active confirmed Problem Screening for malignant neoplasm of rectum (059877254) Encounter for screening for malignant neoplasm of rectum (Z12.12) Active confirmed Problem 019881922 Family history o f colon cancer (Z80.0) Active confirmed Problem 77835895 Constipation, unspecified constipation type (K59.00) Active confirmed Problem Diverticulosis of colon (220115613) Diverticulosis of colon (K57.30) Active confirmed Plan Of Treatment Future Test Test Name Order Date COLONOSCOPY 12/19/2015 COLONOSCOPY 03/17/2022 Insurance Providers Payer Name Payer Address Payer Phone Subscriber Number Group Number Insured Name Patient Relationship to Insured Coverage Start Date Coverage End Date [facility] [address] [place] [phone] [id number] PATRICIA DOOLEY Self - patient is the insured Medical (General) History Medical History History ICD Code Epilepsy--off seizure meds Multiple sclerosis Vertigo Denies [place],DM,CVA,Lung disease,renal dise ase Hx of breast cancer 2011--ri ght--lumpectomy, XRT , chemo--sees Dr. Samuel at [facility] x 3 Neg. colonoscopy in 2005, 06/2011, and 2016 Surgical History Surgery Date(Month/Year) Urethral diverticulum Right arm surgery BTL Exploratory laparoscopy Ear surgery for tubes Shoulder surgery--right shoulder 09/2015 Right breast cancer --lumpectomy Bone removed from left thumb Carpal tunnel on the left Cystoscopy 02/2022
--- OUTSIDE RECORDS SUMMARY | 2024-07-02 17:48 | XMS_ITS | Encounter Summary ---
Author Organization [facility] [employer] Address [address] [place] [address] 7 [place] [address] Care Team Providers Care Automatic Bandsaw Tender Name Role Phone Jimmy Boo MD Primary Care Provider [phone] Encounter Details Date Type Department Care Team ([facility] Contact Info) Description 05/16/2023 Abstract [facility] ADULT DENTAL [address] [place] [address] Mary Jane Massey DMD Social History Tobacco [...] Description 07/19/2024 3:30 PM EDT Office Visit [facility] MED & PEDS [address] [place] [address] Jimmy Boo MD [address] [place] [address] documented as of this encounter Visit Diagnoses Not on filedocumented in this encounter Care Teams Automatic Bandsaw Tender Relationship Specialty Start Date End Date Jimmy Boo MD [address] [place] [address] PCP - General Internal Medicine 05/03/13 documented as of this encounter
--- OUTSIDE RECORDS SUMMARY | 2024-07-02 17:48 | XMS_ITS | Encounter Summary ---
Author Organization [employer] Address [address] [facility] 7t [place] [address] Care Team Providers Care Wood Heel Finisher Name Role Phone Jimmy oBo MD Primary Care Provider [phone] Reason for Visit * Reason Onset Date Comments Medication Question 06/21/2022 Encounter Details Date Type Department Care Team ([facility] Contact Info) Description 06/21/2022 Telephone [facility] CHC MED & PEDS [address] [place], [place] [phone] Jimmy Boo MD [address] [place], [place] [phone] Medication Question Social History Tobacco Use Types [...] out. Pt requesting Rx be sent to [facility] pharmacy on [facility]. * Telephone Encounter - Sangeetha Glenys - 06/21/2022 2:27 PM EDT Tc from pt requesting for medication ibuprofen . States does not want the 800mg . Would like to know if she can get 600 mg instead . documented in this encounter Plan of Treatment Upcoming Encounters Date Type Department Care Team (Late st Contact Info) Description 07/19/2024 3:30 PM EDT Office Visit [facility] MED & PEDS [address] [place] [address] Jimmy Boo MD [address] [place] [address] documented as of this encounter Visit Diagnoses Diagnosis Primary insomnia Persistent disorder of initiating or maintaining sleep SOB (shortness of breath) Shortness of breath documented in this encounter Care Teams Wood Heel Finisher Relationship Specialty Start Date End Date Jimmy Boo MD [address] [place] [address] PCP - General Internal Medicine 05/03/13 documented as of this encounter
--- OUTSIDE RECORDS SUMMARY | 2024-07-02 17:48 | XMS_ITS | Encounter Summary ---
Author Organization [employer] Address [address] [facility] 7t [place] [address] Care Team Providers Care Associate Theatre Professor Name Role Phone Jimmy Boo MD Primary Care Provider [phone] Reason for Visit * Reason Onset Date Comments Med Refill 07/13/2023 Encounter Details Date Type Department Care Team ([facility] Contact Info) Description 07/13/2023 Refill [facility] CHC ADULT DENTAL [address] [place] [address] Luis Guzman DDS [address] [place] [address] Social History Tobacco Use Types Packs/Day Years [...] Description 07/19/2024 3:30 PM EDT Office Visit [facility] MED & PEDS [address] [place] [address] Jimmy Boo MD [address] [place] [address] documented as of this encounter Visit Diagnoses Not on filedocumented in this encounter Care Teams Associate Theatre Professor Relationship Specialty Start Date End Date Jimmy Boo MD [address] [place] [address] PCP - General Internal Medicine 05/03/13 documented as of this encounter
--- OUTSIDE RECORDS SUMMARY | 2024-07-02 17:48 | XMS_ITS | Encounter Summary ---
Author Organization [facility] [employer] Address [address] [facility] 7t [place] [address] Care Team Providers Care Construction Analyst Name Role Phone Jimmy Boo MD Primary Care Provider [phone] Encounter Details Date Type Department Care Team (Late Contact Info) Description 07/07/2023 Orders Only [facility] MED & PEDS [address] [place], [place] [phone] Jimmy Boo MD [address] [place], [place] [phone] Diverticulosis of colon (Primary Dx) Social History [...] [facility] [address] [place] [address] Jimmy Boo MD [address] [place], [place] [phone] Scheduled Orders Name Type Priority Associated Diagnoses Orde r Schedule Fecal Globin by Immunochemistry Lab Routine Diverticulosis of colon Expected: 07/07/2023 (Approximate), Expires: 07/06/2024 Urinalysis Complete Lab Routine Diverticulosis of colon Expected: 07/07/2023 (Approximate), Expires: 07/06/2024 documented as of this encounter Visit Diagnoses Diagnosis Diverticulosis of colon- Primary Diverticulosis of colon (without mention of hemorrhage) documented in this encounter Care Teams Construction Analyst Relationship Specialty Start Date End Date Jimmy Boo MD [address] [place] [address] PCP - General Internal Medicine 05/03/13 documented as of this encounter
--- OUTSIDE RECORDS SUMMARY | 2024-07-02 17:48 | XMS_ITS | Encounter Summary ---
Author Organization [employer] Address [address] [facility] 7t [place] [address] Care Team Providers Care Special Education Para Professional Name Role Phone Jimmy Boo MD Primary Care Provider [phone] Encounter Details Date Type Department Care Team ([facility] Contact Info) Description 06/21/2023 Orders Only [facility] [address] [place] [address] Jimmy Boo MD [address] [place] [address] Primary insomnia Social History Tobacco Use Types [...] Upcoming Encounters Date Type Department Care Team ([facility] Contact Info) Description 07/19/2024 3:30 PM EDT Office Visit [facility] [address] [place] [address] Jimmy Boo MD [address] [place] [address] documented as of this encounter Visit Diagnoses Diagnosis Primary insomnia Persistent disorder of initiating or maintaining sleep documented in this encounter Care Teams Special Education Para Professional Relationship Specialty Start Date End Date Jimmy Boo MD [address] [place] [id number] PCP - General Internal Medicine 05/03/13 documented as of this encounter
--- OUTSIDE RECORDS SUMMARY | 2024-07-02 17:48 | XMS_ITS | Encounter Summary ---
Author Organization [employer] Address [address] [facility] 7t [place] [address] Care Team Providers Care Supervisor Boat Outfitting Name Role Phone Jimmy Boo MD Primary Care Provider [phone] Encounter Details Date Type Department Care Team ([facility] Contact Info) Description 06/25/2022 Orders Only [facility] [address] [place], [place] [phone] Gray Barnes MD [address] [place], [place] [phone] Primary insomnia; SOB (shortness of breath) Social [...] Upcoming Encounters Date Type Department Care Team ([facility] Contact Info) Description 07/19/2024 3:30 PM EDT Office Visit [facility] [address] [place], [place] [phone] Jimmy Boo MD [address] [place], [place] [phone] documented as of this encounter Visit Diagnoses Diagnosis Primary insomnia Persistent disorder of initiating or maintaining sleep SOB (shortness of breath) Shortness of breath documented in this encounter Care Teams Supervisor Boat Outfitting Relationship Specialty Start Date End Date Jimmy Boo MD [address] [place] [phone] PCP - General Internal Medicine 05/03/13 documented as of this encounter
--- OUTSIDE RECORDS SUMMARY | 2024-07-02 17:48 | XMS_ITS | Encounter Summary ---
Author Organization [employer] Address [address] [facility] [address] 7[address] [place] [address] Care Team Providers Care Sight Effects Specialist Name Role Phone Jimmy Boo MD Primary Care Provider [phone] Reason for Visit * Reason Comments Med Refill Encounter Details Date Type Department Care Team ([facility] Contact Info) Description 10/03/2023 Refill [facility] ADULT D[facility]AL [address] [place], [place] [phone] Mary Jane Massey DMD Social History Tobacco [...] 07/19/2024 3:30 PM EDT Office Visit [facility] MED & PEDS [address] [place] [address] Jimmy Boo MD [address] [place] [address] documented as of this encounter Visit Diagnoses Not on filedocumented in this encounter Care Teams Sight Effects Specialist Relationship Specialty Start Date End Date Jimmy Boo MD [address] [place] [address] PCP - General Internal Medicine 05/03/13 documented as of this encounter
--- OUTSIDE RECORDS SUMMARY | 2024-07-02 17:48 | XMS_ITS | Encounter Summary ---
Author Organization [employer] Address [address] [facility] [address] 7[address] [place] [address] Care Team Providers Care Account Liaison Hospice Name Role Phone Jimmy Boo MD Primary Care Provider [phone] Encounter Details Date Type Department Care Team (Latest Contact Info) Description 07/02/2024 Travel Social History Tobacco Use Types Packs/Day [...] 3:30 PM EDT Office Visit [facility] MED & [facility]EDS [address] [place] [address] Jimmy Boo MD [address] [place] [address] documented as of this encounter Visit Diagnoses Not on filedocumented in this encounter Additional Health Concerns Assessment Noted Time PHQ-9 Depression Total Score: 8 06/05/19 25 2:12 PM EST documented as of this encounter Care Teams Account Liaison Hospice Relationship Specialty Start Date End Date Jimmy Boo MD [address] [place] [address] PCP - General Internal Medicine 05/03/13 documented as of this encounter
--- OUTSIDE RECORDS SUMMARY | 2024-07-02 17:49 | XMS_ITS | Encounter Summary ---
Author Organization [facility] [employer] Address [address] [facility] [address] [place] [address] Care Team Providers Care Suction Dredge Dumping Supervisor Name Role Phone Jimmy Boo MD Primary Care Provider [phone] Encounter Details Date Type Department Care Team (Late Contact Info) Description 03/02/2023 Abstract [facility] ADULT DENTAL [address] [place], [place] [phone] Zahira Harris DDS [address] [place], [place] [phone] Social History Tobacco Use Types Packs/Day Years [...] 3:30 PM EDT Office Visit [facility] MED [facility] PEDS [address] [place], [place] [phone] Jimmy Boo MD [address] [place], [place] [phone] documented as of this encounter Visit Diagnoses Not on filedocumented in this encounter Care Teams Su[employer] Dumping Supervisor Relationship Specialty Start Date End Date Jimmy Boo MD [address] [place] [id number] PCP - General Internal Medicine 05/03/13 documented as of this encounter
--- OUTSIDE RECORDS SUMMARY | 2024-07-02 17:49 | XMS_ITS | Encounter Summary ---
Author Organization [employer] Address [address] [place] [address] [address] [place] [address] Care Team Providers Care Planning Coordinator Name Role Phone Jimmy Boo MD Primary Care Provider [phone] Reason for Visit * Reason Comments Med Refill Encounter Details Date Type Department Care Team ([facility] Contact Info) Description 06/23/2022 Refill [facility] [address] [place] [address] Jimmy Boo MD [address] [place] [address] Primary insomnia Social History Tobacco Use Types [...] Upcoming Encounters Date Type Department Care Team ([facility] Contact Info) Description 07/19/2024 3:30 PM EDT Office Visit [facility] MED & PEDS [address] [place], [place] [phone] Jimmy Boo MD [address] [place], [place] [phone] documented as of this encounter Visit Diagnoses Diagnosis Primary insomnia Persistent disorder of initiating or maintaining sleep documented in this encounter Care Teams Planning Coordinator Relationship Specialty Start Date End Date Jimmy Boo MD [address] [place] [address] PCP - General Internal Medicine 05/03/13 documented as of this encounter
--- OUTSIDE RECORDS SUMMARY | 2024-07-02 17:49 | XMS_ITS | Encounter Summary ---
Author Organization [employer] Address [address] [facility] [address] [place] [address] Care Team Providers Care Keeper Head Name Role Phone Jimmy Boo MD Primary Care Provider [phone] Reason for Visit * Reason Onset Date Comments rct appt 02/17/2023 Encounter Details Date Type Department Care Team ([facility] Contact Info) Description 02/17/2023 Telephone C [facility] ADULT DENTAL [address] [place] [address] Tricia Davis, DDS [address] [facility] [place] [address] rct appt Social History Tobacco Use Types [...] Upcoming Encounters Date Type Department Care Team ([facility] Contact Info) Description 07/19/2024 3:30 PM EDT Office Visit [facility] MED & PEDS [address] [place] [address] Jimmy Boo MD [address] [place] [address] documented as of this encounter Visit Diagnoses Not on filedocumented in this encounter Care Teams Keeper Head Relationship Specialty Start Date End Date Jimmy Boo MD [address] [place] [address] PCP - General Internal Medicine 05/03/13 documented as of this encounter
--- OUTSIDE RECORDS SUMMARY | 2024-07-02 17:49 | XMS_ITS | Clinical Summary ---
Author Organization [employer] Address [address] [place] [address] 7[address] [place] [address] Care Team Providers Care Piece Meat Trimmer Name Role Phone Jimmy Boo MD Primary Care Provider [phone] Allergies Active Allergy Reactions Criticality Noted Date Comments Honey Bee Venom 08/13/2013 Iodinated Contrast Media Angioedema 12/08/2017 Other reaction(s): Pruritic rash Pineapple 01/20/2024 Sulfa Antibiotics 04/10/2018 Topiramate 08/05/2011 Other reaction(s): Trouble Breathing Medications B Complex-Bioti n-FA (B-100 TR) tablet controlled-re lease Take 1 tablet by mouth in the morning. 06/24/19 21 Active sodium chloride ([place]) 0.65 % nasal spray Administer 2 sprays [...] 24 Active Sodium Fluoride 1.1 % cream [place] teeth for 2 minutes, morning and night. [...] BY MOUTH EVERYDAY AT BEDTIME 30 tablet 06/23/19 25 Active Diclofenac Sodium 1 % gelIndication s:Acute midline low back pain without sciatica To apply to the affected area 3 times a day 100 g 07/03/19 25 Active zolpidem (Ambien) 10 MG tabletIndicat ions:Primary insomnia TAKE 1 TABLET BY MOUTH EVERYDAY AT BEDTIME 30 tablet 05/25/19 25 025 Discontinued(Re order (will not trigger notification to Pharmacy)) Active Problems Problem Noted Date Diagnosed Date Diverticulosis of colon 06/21/2023 Malignant neoplasm of breast 06/21/2023 Anemia 08/13/2013 Asthma 08/13/2013 Gastroesophageal reflux disease 10/21/2011 Depressive disorder 08/05/2011 Multiple sclerosis 08/05/2011 Encounters Date Type Department Care Team Description 07/02/2024 3:20 PM EDT Office Visit [facility] [address] [place], [place] [phone] Jimmy Boo MD Acute midline low back pain without sciatica (Primary Dx) 07/02/2024 Travel 07/02/2024 Telephone [facility] [address] [place] [address] Jimmy Boo MD Nurse Triage 06/20/2024 Refill [facility] [address] [place] [phone] Jimmy Boo MD Primary insomnia 06/13/2024 Telephone [facility] [address] [place] [address] Jimmy Boo MD Appointment Request; Results 06/13/2024 Orders Only GENERIC EXTERNAL DATA DEPARTMENT Provider, Generic External Data 06/12/2024 Orders Only GENERIC EXTERNAL DATA DEPARTMENT Provider, Generic External Data 06/04/2024 1:45 PM EST Office Visit [facility] [address] [place] [address] Jimmy Boo MD Ear pressure, bilateral (Primary Dx); Primary insomnia; Tingling in extremities; Elevated blood sugar 06/04/2024 Travel 06/01/2024 Telephone [facility] [address] [place] [address] Jimmy Boo MD chart prep 05/24/2024 Refill [facility] [address] [place] [address] Jimmy Boo MD Primary insomnia 05/18/2024 Patient Outreach [address] [address] Jimmy Boo MD Pre-visit Planning (SDOH screening negative and Tobacco screening negative) 04/25/2024 Orders Only [facility] [address] [place] [address] Jimmy Boo MD Primary insomnia 04/24/2024 Telephone [facility] [address] [place] [phone] Jimmy Boo MD Med Refill 04/10/[address] [address] Jimmy Boo MD Nurse Triage from Last [...] Mass Index 22.22 07/02/2024 3:11 PM EDT Plan of Treatment Upcoming Encounters Date Type Department Care Team (Late st Contact Info) Description 07/19/2024 3:30 PM EDT Office Visit [facility] [address] [place] [address] Jimmy Boo MD [address] [place] [address] Health Maintenance Due Date Last Done Comments [...] Smear 01/23/2024 01/22/2021, 11/07/2019 Mammogram 01/28/2024 01/27/2023, 1007/2021, 11/16/2019, Additional history exists Dental Oral Exam 09/11/2024 03/12/2024, 12/2023, 12/28/2022 Dental Prophylaxis 09/11/2024 03/12/2024, 0 07/12/2023, 12/28/2022 Influenza Vaccine (#1) 2024 Postp oned from 12/04/2023 (Patient Refused) COVID-19 Vaccine ( season) 2025 12/18/2020, 11/27/2020 Postponed from 12/04/2023 (Patient Refused) DTaP/Tdap/Td Vaccines (1 - Tdap) 02/20/2025 02/18/2019 Postponed from 02/19/2019 (Patient Refused) Dental X-Ray: Bitewings 03/13/2025 03/12/20 24, 02/11/2023, 12/28/2022 SDOH Screening 05/18/2025 05/18/2024 Alcohol/Substance Use Screening 06/04/2025 06/04/2024 Depression Screening 06/04/2025 06/04/2024, 06/05/19 Tobacco Screening 07/02/2025 07/02/2024 Dental X-Ray: Full Mouth 03/13/2027 03/12/2024 Colonoscopy [...] Procedure Name Priority Date/Time Associated Diagnosis Comments OLIGOCLONAL BANDING Routine 06/13/2024 1 1:02 AM EDT IGG SYNTHESIS RATE/INDEX, CSF Routine 06/13/2024 11:02 AM EDT CSF CELL COUNT WITH DIFFERENTIAL Routine 06/13/2024 11:02 AM EDT TOTAL PROTEIN CSF Routine 06/13/2024 11: 02 AM EDT GLUCOSE, CSF Routine 06/13/2024 11:02 AM EDT GRAM STAIN Routine 06/13/2024 11:02 AM EDT FL GUIDED LUMBAR PUNCTURE LP Routine 06/13/2024 11:00 AM EDT APTT Routine 06/13/2024 9:50 AM EDT PROTHROMBIN TIME-INR Routine 06/13/2024 9:50 AM EDT CBC WITH AUTO DIFFERENTIAL Routine 06/13/2024 9:50 AM EDT CANCELLED HEMATOLOGY Routine 06/12/2024 4:32 PM EDT PROPHYLAXIS - ADULT Routine 03/12/2024 2 :00 [...] Recently Relevant to Health Maintenance Results * (ABNORMAL) Total Protein CSF (06/13/2024 11:02 AM EDT) Total Protein CSF 52.8(H) 15 - 45 mg/dL [facility] 06/13/2024 11:0 2 AM EDT 06/13/2024 11:24 AM EDT Generic External Data Provider LAB BODY FLUIDS A ND STOOLS ORDERABLES Final Result Performing Organization Address [facility] de Phone Number [facility] [address] [place] [phone] * Oligoclonal banding (06/13/2024 11:02 AM EDT) Oligoclonal Bands (IgG), CSF Absent Absent [facility] Comment:No Oligoclonal bands are identified in the patient'sCSF when compared to the corresponding serum sample.Oligoclonal bands are present in the CSF of more than85% of patients with clinically definite multiplesclerosis (MS). To distinguish between oligoclonalbands in the CSF due to a peripheral gammopathy andoligoclonal bands due to local production in the WEB PRESS OPERATOR HELPER OFFSET,serum and CSF should be tested simultaneously.Oligoclonal bands can however be observed in a varietyof other diseases, e.g., subacute sclerosing panen-cephalitis, inflammatory polyneuropathy, WEB [employer] O[employer] OFFSET lupus,and brain tumors and infarctions. The clinicalsignificance of a numerical band count, determinedby isoelectric focusing, has not been definitivelydefined. The data should be interpreted in conjunctionwith all pertinent clinical and laboratory data forthis patient.THIS TEST WAS PERFORMED AT:[id number] [place] [address]JNTVJQAGENEVIEVE GARRETT MD,PHD 06/13/2024 11:0 2 AM EDT 06/13/2024 11:24 AM EDT us Generic External Data Provider LAB BLOOD ORDERAB LES Final Result Performing Organization Address [facility] Co de Phone Number [facility] [address] [place] [phone] * IgG Synthesis Rate/Index, CSF (06/13/2024 11:02 AM EDT) Albumin 4.6 3.6 - 5.1 g/dL [facility] Comment:THIS TEST WAS PERFOR MED AT:[employer] [id number] [place] [address]XXNTCMKGENEVIEVE GARRETT MD,PHD Immunoglobulin G 772 600 - 1640 mg/dL [facility] IgG, CSF 2.3 0.8 - 7.7 mg/dL [facility] Albumin, CSF 37.3 8.0 - 42.0 mg/dL [facility] IgG Index, CSF 0.37 <0.70 [facility] Comment:The IgG Synthesis ra te, CSF and IgG index, CSF are twoformulae for estimating the amount of IgG produced inthe central nervous system. Evidence of increasedsynthesis of IgG provides support for the diagnosis ofmultiple sclerosis. Synthesis Rate IgG, CSF -5.2 -9.9 - 3.3 mg/24 h [facility] 06/13/2024 11:0 2 AM EDT 06/13/2024 11:24 AM EDT Generic External Data Provider LAB BODY FLUIDS A ND STOOLS ORDERABLES Final Result Performing Organization Address [facility] Co de Phone Number [facility] [address] [place] [phone] * Gram stain (06/13/2024 11:02 AM EDT) 06/13/2024 11:0 2 AM EDT 06/13/2024 11:32 AM EDT Comment:CSF Narrative [facility] - 06/16/2024 8:04 AM EDT Gram stain results: No polys or organisms seen CSF Volume CSF volume mL CSF Volume 3.5 Appearance Appearance Appearance Clear CSF Culture No growth after 3 days. Specimen Source: Cerebrospinal Fluid us Generic External Data Provider LAB MICROBIOLOGY - GENERAL ORDERABLES Final Result Performing Organization Address City/[facility]/ZIP Co de Phone Number [facility] [address] [place] [phone] [phone] * CSF cell count with differential (06/13/2024 11:02 AM EDT) Appearance CSF CLEAR [facility] CSF Tube Number 4 [facility] CSF Volume 4.5 ML [facility] CSF Color COLORLESS [facility] CSF White Blood Cell 2 MM*3 [facility] Comment:Body Fluid WBC is a total nucleated cell count.When a differential is performed, the specimen isconcentrated by cytocentrifugation. This sometimes resultsin the number of cells in the differential being greaterthan the actual cell count performed on thenon-concentrated specimen. CSF Red Blood Cell 1 MM*3 [facility] Comment:The reference interv al(s) and other method performancespecifications are unavailable for this body fluid.Comparison of the result with concentration in the blood,serum, or plasma is recommended. LYMPHOCYTES %, CSF 73 % [facility] Monocytes CSF 27 % [facility] 06/13/2024 11:0 2 AM EDT 06/13/2024 11:24 AM EDT us Generic External Data Provider LAB BODY FLUIDS A ND STOOLS ORDERABLES Final Result Performing Organization Address City/[facility]/ZIP Co de Phone Number [facility] [address] [place] [phone] * Glucose, CSF (06/13/2024 11:02 AM EDT) CSF Appearance Clear, Colorless [facility] CSF Tube Number 1 [facility] Glucose CSF 53 mg/dL [facility] 06/13/2024 11:0 2 AM EDT 06/13/2024 11:24 AM EDT us Generic External Data Provider LAB BODY FLUIDS A ND STOOLS ORDERABLES Final Result Performing Organization Address City/[facility]/ZIP Co de Phone Number [facility] [address] [place] [phone] * FL guided lumbar puncture LP (06/13/2024 11:00 AM EDT) Anatomical Region Laterality Modality Abdomen Radiographic Estrellita ging 06/13/2024 11:0 0 AM EDT Narrative 06/13/2024 12:00 PM EDT ? [facility] ?[address] ?[place] [address] ? Fluoroscopy Report ? Signed ? Patient: Bourgeois,Lakisha A ?MR#: [id number] ?? [id number] ? : 1965 ?Acct:[id number] ? Age/Sex: 58 / F ?ADM Date: 06/13/24 ? Loc: HO.SSS ? Attending Dr: Rory Garber MD ? Ordering Physician: Rory Garber MD ?? Date of Service: 06/13/24 ?? Procedure(s): FL guided lumbar puncture LP ?? Accession Number(s): [id number] ? cc: Jimmy Boo MD; Rory Garber MD ? EXAMINATION: ?? XR LUMBAR PUNCTURE ? CLINICAL INFORMATION: ?? MULTIPLE SCLEROSIS ? COMPARISON: ?? None available. ? TECHNIQUE: ?? Informed consent was obtained. Timeout was performed. Using ?? fluoroscopic guidance, the L3-4 interlaminar space was identified, and ?? the overlying skin prepped and draped in sterile fashion. Skin and ?? subcutaneous tissues were anesthetized with 1% lidocaine. Subsequently, ?? a 20-gauge Quincke spinal needle with advanced into the thecal sac, and ?? clear CSF was noted at the needle hub. Opening pressure was measured at ?? 8 cm H2O. Approximately 13.5 mL of clear CSF was obtained passively, ?? and sent for laboratory analysis. The patient tolerated the procedure ?? well. There were no immediate complications. ? 1 fluoroscopic spot image obtained. ? FLUOROSCOPY TIME: ?? 3 seconds ? DOSE AREA PRODUCT: ?? 94.6 uGy-m2 (microgray-meter squared) ? FL/FL guided lumbar puncture LP ?? IMPRESSION: ?? 1. Successful L3-4 fluoroscopic guided lumbar puncture. ?? 2. Opening pressure measured at approximately 8 cm H2O. ?? 3. 13.5 mL clear CSF obtained and sent for laboratory analysis. ? Electronically signed by: ??William Solis MD ??06/13/2024 11:57 AM EDT RP ? Dictated By: ?William Solis MD ? Signed By: ?<Electronically signed by William Solis MD in OV> ?06/13/241156 ? DD/ 1100 ? TD/TT: 06/13/24 1115 ? Cover Operator: ? Procedure Note Donotuseinterpreter, Image - 06/13/[address] [address] Fluoroscopy Report Signed Patient: Lakisha Hearn AMR#: [id number] : 1965Acct:[id number] Age/Sex: 58 / FADM Date: 06/13/24 Loc: .[facility] Attending Dr: Rory Garber MD Ordering Physician: Rory Garber MD Date of Service: 06/13/24 Procedure(s): FL guided lumbar puncture LP Accession Number(s): [id number] cc: Jimmy Boo MD; Rory Garber MD EXAMINATION: XR LUMBAR PUNCTURE CLINICAL INFORMATION: MULTIPLE SCLEROSIS COMPARISON: None available. TECHNIQUE: Informed consent was obtained. Timeout was performed. Using fluoroscopic guidance, the L3-4 interlaminar space was identified, and the overlying skin prepped and draped in sterile fashion. Skin and subcutaneous tissues were anesthetized with 1% lidocaine. Subsequently, a 20-gauge Quincke spinal needle with advanced into the thecal sac, and clear CSF was noted at the needle hub. Opening pressure was measured at 8 cm H2O. Approximately 13.5 mL of clear CSF was obtained passively, and sent for laboratory analysis. The patient tolerated the procedure well. There were no immediate complications. 1 fluoroscopic spot image obtained. FLUOROSCOPY TIME: 3 seconds DOSE AREA PRODUCT: 94.6 uGy-m2 (microgray-meter squared) FL/FL guided lumbar puncture LP IMPRESSION: 1. Successful L3-4 fluoroscopic guided lumbar puncture. 2. Opening pressure measured at approximately 8 cm H2O. 3. 13.5 mL clear CSF obtained and sent for laboratory analysis. Electronically signed by: William Solis MD 06/13/2024 11:57 AM EDT Dictated By: William Solis MD Signed By: <Electronically signed by William Solis MD in OV> 06/13/24 1157 DD/ 1100 TD/TT: 06/13/24 1115 Cover Operator: [facility] External Provider IMG FLU OROSCOPY PROCEDURES Final Result * (ABNORMAL) CBC auto differential (06/13/2024 9:50 AM EDT) White Blood Count 5.1 4.8 - 10.8 X10*3/uL [facility] Red Blood Count 4.22 4.20 - 5.50 X10*6/uL [facility] Hemoglobin 13.3 12.0 - 16.0 g/dl [facility] Hematocrit 39.9 37.0 - 47.0 % [facility] Mean Corpuscular Volume 94.5 80.0 - 98.0 fL [facility] Mean Corpuscular Hemoglobin 31.5 27.0 - 33.0 pg [facility] Mean Corpuscular HGB Conc 33.3 31.0 - 35.0 g/dl [facility] Red Cell Distribution Width 13.1 11.0 - 16.0 % [facility] Platelet Count 248 160 - 400 X10*3/uL [facility] Mean Platelet Volume 9.5 9.4 - 12.3 fL [facility] Neutrophils Percent Auto 56.5 45 - 73 % [facility] Imm Gran Pct Auto 0.2 0.0 - 0.4 % [facility] Lymphocytes Percent Auto 26.7 20 - 40 % [facility] Monocytes Percent Auto 12.8(H) 2 - 11 % [facility] Eosinophils Percent Auto 2.8 0 - 4 % [facility] Basophils Percent Auto 1.0 0 - 2 % [facility] NRBC Pct Auto 0.0 0.0 - 0.2 /100WBC [facility] Neutrophils Absolute Auto 2.9 2.0 - 8.3 x10*3/uL [facility] Imm Gran Abs Auto 0.01 0.00 - 0.03 X10*3/uL [facility] Lymphocytes Absolute Auto 1.4 1.2 - 4.9 X10*3/uL [facility] Monocytes Absolute Auto 0.7 0.1 - 1.2 X10*3/uL [facility] Eosinophils Absolute Auto 0.1 0.0 - 0.4 X10*3/uL [facility] Basophils Absolute Auto 0.1 0.0 - 0.2 X10*3/uL [facility] NRBC Abs Auto 0.000 0.0 - 0.012 X10*3/uL [facility] 06/13/2024 9:50 AM EDT 06/13/2024 9:53 AM EDT us Generic External Data Provider LAB BLOOD ORDERAB LES Final Result Performing Organization Address [facility]/ZIP Co de Phone Number [facility] [address] [place] [phone] * Partial Thromboplastin Time, Activated (APTT) (06/13/2024 9:50 AM EDT) Partial Thromboplastin Time 32.9 26.0 - 36.8 SEC [facility] Comment:For information rega rding the monitoring of direct thrombininhibitors, please refer to Pharmacy. 06/13/2024 9:50 AM EDT 06/13/2024 9:53 AM EDT us Generic External Data Provider LAB BLOOD ORDERAB LES Final Result Performing Organization Address City/[facility]/ZIP Co de Phone Number [facility] [address] [place] [phone] * (ABNORMAL) Prothrombin Time-INR (06/13/2024 9:50 AM EDT) [facility] Prothrombin Time 10.7(L) 10.9 - 12.4 SEC [facility] INTERNATIONAL NORM RATIO 0.9 0.9 - 1.1 [facility] Comment:INTERNATIONAL NORMAL IZED RATIO (INR) REFERENCE RANGES Reference RangeFor patients not on anticoagulant therapy: 0.9 - 1.1INR ranges for oral anticoagulanttherapy:For prevention and treatment of venous thrombosis and pulmonary embolism: 2.0 - 3.0For acute myocardial infarction with aspirin therapy: 2.0 - 3.0For acute myocardial infarction without aspirin therapy: 3.0 - 4.0For patients with mechanical prosthetic heart valves: 2.5 - 3.5 06/13/2024 9:50 AM EDT 06/13/2024 9:53 AM EDT us Generic External Data Provider LAB BLOOD ORDERAB LES Final Result Performing Organization Address [facility]/ZIP Co de Phone Number [facility] [address] [place] [phone] * Cancelled Hematology (06/12/2024 4:32 PM EDT) [facility] Cancelled Hematology SEE NOTE [facility] Comment:NO SPECIMEN RECEIVED FOR CBC AND PT INR; PTT 06/12/2024 4:32 PM EDT 06/12/2024 9:17 PM EDT Generic External Data Provider HISTORICAL/NON OR DERABLE LABS Edited Result - Final Performing Organization Address [facility] Co de Phone Number [facility] [address] [place] [phone] * Mammography (01/27/2023) [facility] Mammogram negative Anatomical Region Laterality Modality Other Narrative 01/27/2023 Bi rads -negative us Jimmy Boo MD HEALTH MAINTENANCE Final Re sult * Hepatitis C Antibody Reflex (11/09/2022 1:51 PM EDT) [facility] Hepatitis C Antibody Nonreactive Nonreactive [facility] Comment:Antibodies to HCV no t detected; does not exclude early acuteHCV infection. 11/09/2022 1:51 PM EDT 11/09/2022 5:49 PM EDT Venecia Guadalupe [facility] BLOOD ORDERABLES Rach l Result Performing Organization Address [facility]/ZIP Co de Phone Number [facility] [address] [place] [phone] * HIV Ab/Ag ([facility]) (11/09/2022 1:51 PM EDT) [facility] HIV AB/AG Nonreactive Nonreactive [facility] Comment:HIV-1 p24 Ag and/or HIV-1/HIV-2 Ab not detected.A test result that is nonreactive does not exclude thepossibility of exposure to or infection with HIV-1 and/orHIV-2. Nonreactive results in this assay for individualswith prior exposure to HIV-1 and/or HIV-2 may be due toantigen and antibody levels that are below the limit ofdetection of this assay.The [employer] Hydrographic HIV Ag/Ab Combo assay result andsupplemental assay results should be interpreted inconjunction with the patient's clinical presentation,history and other laboratory results. If the results areinconsistent with clinical evidence, additional testing issuggested to confirm the result. 11/09/2022 1:51 PM EDT 11/09/2022 5:49 PM EDT Veneciamurray Butcher [facility] LAB BLOOD ORDERABLES Rach l Result Performing Organization Address [facility]/ZIP Co de Phone Number [facility] [address] [place] [phone] * Hm Colonoscopy (06/04/2022) [facility] Colonoscopy Normal Normal 06/04/2022 Jacey Donnelly - [...] has been evaluated with computer assisted technology. [employer] [facility] Pesticide Chemist: SEE COMMENT [facility] Comment: DCR, CT(ASCP) CT screening location: [address] ??[address] HPV nRNA E6/E7 Not Detected Not Detected [facility] Comment: Methodology: Rn Hyperbaric-Mediated Amplification This assay detects E6/E7 viral messenger RNA (mRNA) from 14 high-risk HPV types (16,18,31,33,35,39,45,51,52,56,58,59,66,68). ? The analytical performance characteristics of this assay have been determined by [employer]. The modifications have not been cleared or approved by the FDA. This assay has been validated pursuant to the CLIA regulations and is used for clinical purposes. ?? For additional information, please refer to http://education.Relative.ai.Gimado/faq/XJI214m2 (This link if provided for information/ educational purposes only.) Interpretation/Res ult: SEE COMMENT [facility] Comment: Negative for intraepithelial lesion or malignancy. Atrophic pattern; predominantly parabasal cells LMP: NONE [facility] Prev. BX: NONE [facility] Prev. PAP: LEDA HPV+ 2020 NEG [facility] SOURCE: None given [facility] Statement Of Adequacy: SATISFACTORY FOR EVALUATION [facility] 01/22/2021 11:5 3 AM EDT Venecia Butcher CNM LAB PATHOLOGY ORDERABLES Final Result [facility] [address] [place] [address], from Last 3 Months or Most Recently Relevant to Health Maintenance Insurance [facility] Care Teams Piece Meat Trimmer Relationship Specialty Start Date End Date Jimmy Boo MD [address] [place] [phone] PCP - General Internal Medicine 05/03/13
--- OUTSIDE RECORDS SUMMARY | 2024-07-02 17:49 | XMS_ITS | Encounter Summary ---
Author Organization [employer] Address [address] 7t [place] [address] Care Team Providers Care Bookmobile Clerk Name Role Phone Jimmy Boo MD Primary Care Provider [phone] Reason for Visit * Reason Onset Date Comments case back from lab?? 10/19/2022 Encounter Details Date Type Department Care Team ([facility] Contact Info) Description 10/19/2022 Telephone [facility] ADULT DENTAL [address] [place] [address] Luis Guzman, DDS [address] [place] [address] case back from lab?? Social History Tobacco [...] Description 07/19/2024 3:30 PM EDT Office Visit [facility] MED & PEDS 505 [place] [address] Jimmy Boo MD [address] [place] [address] documented as of this encounter Visit Diagnoses Not on filedocumented in this encounter Care Teams Bookmobile Clerk Relationship Specialty Start Date End Date Jimmy Boo MD [address] [place] [address] PCP - General Internal Medicine 05/03/13 documented as of this encounter
--- OUTSIDE RECORDS SUMMARY | 2024-07-02 17:49 | XMS_ITS | Encounter Summary ---
Author Organization [email or web address] Address [address] [place] [address] 7 [place] [address] Care Team Providers Care Insurance Sales Manager Name Role Phone Jimmy Boo MD Primary Care Provider [phone] Reason for Visit * Reason Comments Med Refill Encounter Details Date Type [facility] Description 06/22/2022 Refill [facility] MED & PEDS [address] [place] [address] Jimmy Boo MD 505 [place] [address] Primary insomnia Social History Tobacco Use Types [...] Upcoming Encounters Date Type Department [facility] Description 07/19/2024 3:30 PM EDT Office Visit [facility] CHC MED & PEDS [address] [place], [place] [phone] Jimmy Boo MD [address] [place], [place] [phone] documented as of this encounter Visit Diagnoses Diagnosis Primary insomnia Persistent disorder of initiating or maintaining sleep documented in this encounter Care Teams Insurance Sales Manager Relationship Specialty Start Date End Date Jimmy Boo MD [address] [place] [address] PCP - General Internal Medicine 05/03/13 documented as of this encounter
== END 2024-07-02 15:58 | disposition home or self-care (01) ==
LOC: HO.XRAY 15:57
PROVIDERS: PCP Internal Medicine; Visit Provider Internal Medicine
DX: M54.50 Low back pain, unspecified (principal)
CPT/HCPCS: 72100

== ENCOUNTER → 2024-07-02 16:02 | Outpatient (BNV) | payer OTHER, SELFPAY | PROVIDERS: PCP Internal Medicine; Visit Provider Radiology Diagnostic Radiology | DX: M54.50 Low back pain, unspecified (principal) | CPT/HCPCS: 72100 ==

== ENCOUNTER 2024-08-26 15:57 | Outpatient (REF) | payer OTHER, SELFPAY ==
--- NOTE | ~2024-08-26 | MR_ITS ---
CLINICAL HISTORY: White matter abnormality --- Additional Notes or Special Instructions: Unable to ga in IV access for contrast admn. If booked again, schedule with US guidance. MR cervical spine without gadolinium Comparison: None Normal vertebral body alignment. Annular bulge is seen at the C4-5 level deforming the dural sac. There is no foraminal narrowing. Annular bulge and osteophytic ridge is seen at C5-6 deforming the dural sac. There is left neural foraminal narrowing at this level. Annular bulge at C6-7 deforms the dural sac. No foraminal narrowing is noted. There is multilevel disc desiccation. There is loss of disc height particularly at C5-6 level. No acute fractures or pathologic bone lesions. Visualized intracranial contents are unremarkable. Soft tissues of the neck are normal. Cervical cord normal size and signal. There is a likely vertebral body hemangioma at C7. IMPRESSION: 1. No acute findings. Normal-appearing cord. 2. Annular bulges at C4-5 through C6-7 deforming the dural sac with left neural foraminal narrowing at C5-6. This document has been electronically signed by: Isaias Rawls MD on 08/28/2024 10:53:19
--- NOTE | ~2024-08-26 | MR_ITS ---
CLINICAL HISTORY: White matter abnormality --- Additional Notes or Special Instructions: Unable to ga in IV access for contrast admn. If booked again, schedule with US guidance. MR Brain without gadolinium Comparison: MR/SR - MR HEAD/BRAIN WO CON - 03/12/24 19:00 EST Findings: No restricted diffusion. No intra-axial mass or hemorrhage. Few white matter hyperintensities are noted primarily in the subcortical white matter relatively unchanged from the prior exam. No midline shift. No hydrocephalus. Vascular flow voids are intact. Orbital contents are unremarkable. The sinuses and mastoid air cells are clear. No focal bone lesion. IMPRESSION: No acute findings. Few white matter hyperintensities on T2 weighted imaging, nonspecific and unchanged. This document has been electronically signed by: Isaias Rawls MD on 08/28/2024 10:49:40
== END 2024-08-26 15:58 | disposition home or self-care (01) ==
LOC: HO.MRI 15:57
PROVIDERS: PCP Internal Medicine; Visit Provider Psychiatry & Neurology Neurology
DX: R93.0 Abnormal findings on diagnostic imaging of skull and head, not elsewhere classified (principal)
CPT/HCPCS: 70551; 72141

== ENCOUNTER → 2024-08-26 16:15 | Outpatient (BNV) | payer OTHER, SELFPAY | PROVIDERS: PCP Internal Medicine; Visit Provider Radiology Diagnostic Radiology | DX: M50.122 Cervical disc disorder at C5-C6 level with radiculopathy (principal); R90.82 White matter disease, unspecified | CPT/HCPCS: 70551; 72141 ==

== ENCOUNTER 2024-12-19 10:05 | Outpatient (REF) | payer OTHER, SELFPAY ==
--- NOTE | ~2024-12-19 | XR_ITS ---
EXAMINATION: XR HAND, RIGHT CLINICAL INFORMATION: right hand and wrist pain COMPARISON: November 23, 2023 TECHNIQUE: PA, lateral, and oblique views of the right hand. FINDINGS: The first CMC joint demonstrates marginal osteophytes and mild joint space narrowing. First MCP joint demonstrates small marginal osteophytes. There are marginal sites involving the IP joint of thumb. There are marginal ossified involving the DIP joint. No fractures are identified. XR/XR hand RT min 3V IMPRESSION: Mild degenerative changes consistent with osteoarthritis. Electronically signed by: Chai Lux MD 12/19/2024 10:21 AM EDT
--- OUTSIDE RECORDS SUMMARY | 2024-12-19 09:00 | XMS_ITS | Encounter Summary ---
Author Organization [employer] Address [address] [place] [address] 7 [place] [address] Care Team Providers Care Church Worker Name Role Phone Jimmy Boo MD Primary Care Provider [phone] Reason for Referral * Imaging (Urgent) - Authorized Specialty Diagnoses / Procedures Referred By Contac t Referred To Contact Radiology Diagnoses Subcutaneous nodule Procedures US SOFT TISSUE Jimmy Boo MD [address] [place] [address] Phone: tel: fax: [address] Phone: tel: fax: Referral ID Status Reason Start Date Expiration Date V isits Requested Visits Authorized [id number] Authorized 12/19/2024 12/19/2025 1 1 Reason for Visit * Reason Comments Hand Pain Encounter Details Date Type Department Care Team ([facility] st Contact Info) Description 12/19/2024 9:00 AM EDT Office Visit [facility] CHC MED & PEDS [address] [place] [address] Jimmy Boo MD [address] [place] [address] Right hand pain (Primary Dx); Subcutaneous nodule Social History Tobacco Use Types Packs/Day Years [...] Sign Reading Time Taken Comments Blood Pressure 125/80 12/19/2024 9:04 AM EDT Pulse 68 12/19/2024 9:04 AM EDT Temperature 36.3 C (97.3 F) 12/19/2024 9:04 AM EDT Respiratory Rate 20 12/19/2024 9:04 AM EDT Oxygen Saturation 99% 12/19/2024 9:04 AM EDT Inhaled Oxygen Concentration - - Weight 50.8 kg (112 lb) 12/19/2024 9:04 AM EDT Height 149.9 cm (4' 11 ) 12/19/2024 9:04 AM EDT Body Mass Index 22.62 12/19/2024 9:04 AM EDT documented in this encounter Plan of Treatment Upcoming Encounters Date Type Department Care Team (Late st Contact Info) Description 04/01/2025 2:15 PM EST Office Visit [facility] ADULT DENTAL [address] [place] [address] Raza Boo Scheduled Orders Name Type Priority Associated Diagnoses Orde r Schedule US SOFT TISSUE Imaging Urgent Subcutaneous nodule Expected: 12/19/2024, Expires: 12/19/2025 documented as of this encounter Procedures Procedure Name Priority Date/Time Associated Diagnosis Comments XR HAND 3+ VIEWS RIGHT Routine 12/19/2024 10:14 AM EDT Right hand pain documented in this encounter Results * XR Hand 3+ Views Right (12/19/2024 10:14 AM EDT) Anatomical Region Laterality Modality Upper Extremities, Hand Right [facility] 12/19/2024 10:1 4 AM EDT Narrative 12/19/2024 10:24 AM EDT [address] [address] XRay Report Signed Patient: Lakisha Hearn MR#: [id number] : 1965 Acct:[id number] Age/Sex: 59 / F ADM Date: 12/19/24 Loc: [facility] Attending Dr: Jimmy Boo MD Ordering Physician: Jimmy Boo MD Date of Service: 12/19/24 Procedure(s): XR hand RT min 3V Accession Number(s): [id number] cc: Jimmy Boo MD Reason for Exam: right hand and wrist pain EXAMINATION: XR HAND, RIGHT CLINICAL INFORMATION: right hand and wrist pain COMPARISON: November 23, 2023 TECHNIQUE: PA, lateral, and oblique views of the right hand. FINDINGS: The first CMC joint demonstrates marginal osteophytes and mild joint space narrowing. First MCP joint demonstrates small marginal osteophytes. There are marginal sites involving the IP joint of thumb. There are marginal ossified involving the DIP joint. No fractures are identified. XR/XR hand RT min 3V IMPRESSION: Mild degenerative changes consistent with osteoarthritis. Electronically signed by: Chai Lux MD 12/19/2024 10:21 AM EDT RP Dictated By: Chai Lux MD Signed By: <Electronically signed by Chai Lux MD in OV> 12/19/24 1021 DD/ 1014 TD/TT: 12/19/24 1017 Clinical Rehabilitation Aide: Procedure Note Donotuseinterpreter, Image - 12/19/[address] [address] XRay Report Signed Patient: Lakisha Hearn AMR#: [id number] : 1965Acct:[id number] Age/Sex: 59 / FADM Date: 12/19/24 Loc: [facility] Attending Dr: Jimmy Boo MD Ordering Physician: Jimmy Boo MD Date of Service: 12/19/24 Procedure(s): XR hand RT min 3V Accession Number(s): [id number] cc: Jimmy Boo MD Reason for Exam: right hand and wrist pain EXAMINATION: XR HAND, RIGHT CLINICAL INFORMATION: right hand and wrist pain COMPARISON: November 23, 2023 TECHNIQUE: PA, lateral, and oblique views of the right hand. FINDINGS: The first CMC joint demonstrates marginal osteophytes and mild joint space narrowing. First MCP joint demonstrates small marginal osteophytes. There are marginal sites involving the IP joint of thumb. There are marginal ossified involving the DIP joint. No fractures are identified. XR/XR hand RT min 3V IMPRESSION: Mild degenerative changes consistent with osteoarthritis. Electronically signed by: Chai Lux MD 12/19/2024 10:21 AM EDT RP Dictated By: Chai Lux MD Signed By: <Electronically signed by Chai Lux MD in OV> 12/19/24 1021 DD/ 1014 TD/TT: 12/19/24 1017 Clinical Rehabilitation Aide: Jimmy Boo MD IMG XR PROCEDURES Edited Re sult - Final documented in this encounter Visit Diagnoses Diagnosis Right hand pain- Primary Pain in soft tissues of limb Subcutaneous nodule documented in this encounter Additional Health Concerns Assessment Noted Time PHQ-9 Depression Total Score: 8 06/05/19 25 2:12 PM EST documented as of this encounter Care Teams Church Worker Relationship Specialty Start Date End Date Jimmy Boo MD [address] [place] [address] PCP - General Internal Medicine 05/03/13 documented as of this encounter
--- OUTSIDE RECORDS SUMMARY | 2024-12-19 12:16 | XMS_ITS | Encounter Summary ---
Author Organization [employer] Address [address] 7t [place] [address] Care Team Providers Care Mortgage Loan Counselor Name Role Phone Jimmy Boo MD Primary Care Provider [phone] Reason for Visit * Reason Comments Med Refill Encounter Details Date Type Department Care Team ([facility] Contact Info) Description 12/02/2023 Refill [facility] CH[facility] ADULT DENTAL [address] [place] [address] Luis Guzman DDS [address] [place] [address] Social History Tobacco Use Types Packs/Day Years [...] Upcoming Encounters Date Type Department Care Team ([facility] st Contact Info) Description 04/01/2025 2:15 PM EST Office Visit [facility] ADULT DENTAL [address] [place] [address] Raza Boo documented as of this encounter Visit Diagnoses Not on filedocumented in this encounter Care Teams Mortgage Loan Counselor Relationship Specialty Start Date End Date Jimmy Boo MD 505 [place] [address] PCP - General Internal Medicine 05/03/13 documented as of this encounter
--- OUTSIDE RECORDS SUMMARY | 2024-12-19 12:17 | XMS_ITS | Encounter Summary ---
Author Organization [employer] Address [address] [facility] 7t [place] [address] Care Team Providers Care Short Range Air Defense Artillery Name Role Phone Jimmy Boo MD Primary Care Provider [phone] Reason for Visit * Reason Comments Med Refill Encounter Details Date Type Department Care Team ([facility] Contact Info) Description 03/16/2022 Refill [facility] [address] [place] [address] Jimmy Boo MD 505 [place], [place] [phone] Insomnia, unspecified Social History Tobacco Use Types [...] Upcoming Encounters Date Type Department Care Team ([facility] Contact Info) Description 04/01/2025 2:15 PM EST Office Visit [facility] CHC ADULT DENTAL 505 [place] [address] Raza Boo documented as of this encounter Visit Diagnoses Diagnosis Insomnia, unspecified documented in this encounter Care Teams Short Range Air Defense Artillery Relationship Specialty Start Date End Date Jimmy Boo MD [address] [place] [address] PCP - General Internal Medicine 05/03/13 documented as of this encounter
--- OUTSIDE RECORDS SUMMARY | 2024-12-19 12:17 | XMS_ITS | Encounter Summary ---
Author Organization [employer] Address [address] [facility] [facility] [address] 7t [place] [address] Care Team Providers Care Patrol Driver Name Role Phone Jimmy Boo MD Primary Care Provider [phone] Reason for Visit * Reason Comments Med Refill Encounter Details Date Type Department Care Team ([facility] Contact Info) Description 08/27/[address] [facility] CHC ADULT DENTAL [address] [place], [place] [phone] Mary Jane Massey DMD Social History Tobacco [...] Description 04/01/2025 2:15 PM EST Office Visit [facility] ADULT DENTAL 505 [place] [address] Raza Boo documented as of this encounter Visit Diagnoses Not on filedocumented in this encounter Care Teams Patrol Driver Relationship Specialty Start Date End Date Jimmy Boo MD [address] [place] [address] PCP - General Internal Medicine 05/03/13 documented as of this encounter
--- OUTSIDE RECORDS SUMMARY | 2024-12-19 12:17 | XMS_ITS | Encounter Summary ---
Author Organization [employer] Address [address] [facility] 7t [place] [address] Care Team Providers Care Quarry Equipment Operator Name Role Phone Jimmy Boo MD Primary Care Provider [phone] Encounter Details Date Type Department Care Team ([facility] Contact Info) Description 06/25/2022 Orders Only [facility] MED & PEDS [address] [place], [place] [phone] Gray Barnes MD [address] [place], [place] [phone] Primary insomnia; SOB (shortness of breath) Social [...] Upcoming Encounters Date Type Department Care Team ([facility] Contact Info) Description 04/01/2025 2:15 PM EST Office Visit [facility] ADULT DENTAL [address] [place] [address] Raza Boo documented as of this encounter Visit Diagnoses Diagnosis Primary insomnia Persistent disorder of initiating or maintaining sleep SOB (shortness of breath) Shortness of breath documented in this encounter Care Teams Quarry Equipment Operator Relationship Specialty Start Date End Date Jimmy Boo MD [address] [place] [address] PCP - General Internal Medicine 05/03/13 documented as of this encounter
--- OUTSIDE RECORDS SUMMARY | 2024-12-19 12:17 | XMS_ITS | Encounter Summary ---
Author Organization [employer] Address [address] [facility] 7t [place] [address] Care Team Providers Care Crystal Flat Grinder Name Role Phone Jimmy Boo MD Primary Care Provider [phone] Reason for Visit * Reason Onset Date Comments Med Refill 07/13/2023 Encounter Details Date Type Department Care Team (Late Contact Info) Description 07/13/2023 Refill [facility] CHC ADULT DENTAL [address] [place] [address] Luis Guzman DDS [address] [place] [address] Social History Tobacco Use Types Packs/Day Years [...] [facility] Contact Info) Description 04/01/2025 2:15 PM EST Office Visit [facility] ADULT DENTAL [address] [place] [address] Raza Boo documented as of this encounter Visit Diagnoses Not on filedocumented in this encounter Care Teams Crystal Flat Grinder Relationship Specialty Start Date End Date Jimmy Boo MD [address] [place] [address] PCP - General Internal Medicine 05/03/13 documented as of this encounter
--- OUTSIDE RECORDS SUMMARY | 2024-12-19 12:17 | XMS_ITS | Encounter Summary ---
Author Organization [employer] Address [address] [place] [address] 7 [place] [address] Care Team Providers Care Informatica Developer Name Role Phone Jimmy Boo MD Primary Care Provider [phone] Encounter Details Date Type Department [facility] Description 06/21/2023 Orders Only [facility] MED & PEDS 505 [place], [place] [phone] Jimmy Boo MD [address] [place], [place] [phone] Primary insomnia Social History Tobacco Use Types [...] Upcoming Encounters Date Type Department Care Team ([facility] Info) Description 04/01/2025 2:15 PM EST Office Visit [facility] ADULT DENTAL [address] [place], [place] [phone] Raza Boo documented as of this encounter Visit Diagnoses Diagnosis Primary insomnia Persistent disorder of initiating or maintaining sleep documented in this encounter Care Teams Informatica Developer Relationship Specialty Start Date End Date Jimmy Boo MD [address] [place] [address] PCP - General Internal Medicine 05/03/13 documented as of this encounter
--- OUTSIDE RECORDS SUMMARY | 2024-12-19 12:17 | XMS_ITS | Encounter Summary ---
Author Organization [employer] Address [address] [place] [address] 7 [place] [address] Care Team Providers Care Sock Turner Name Role Phone Jimmy Boo MD Primary Care Provider [phone] Reason for Visit * Reason Comments Med Refill Encounter Details Date Type Department Care Team ([facility] Contact Info) Description 06/19/2022 Refill [facility]ED[facility] [address] [place] [address] Jimmy Boo MD [address] [place] [address] Primary insomnia Social History Tobacco Use Types [...] Upcoming Encounters Date Type Department Care Team ([facility] Contact Info) Description 04/01/2025 2:15 PM EST Office [facility] ADULT [facility] [address] [place] [address] Raza Boo documented as of this encounter Visit Diagnoses Diagnosis Primary insomnia Persistent disorder of initiating or maintaining sleep documented in this encounter Care Teams Sock Turner Relationship Specialty Start Date End Date Jimmy Boo MD [address] [place] [address] PCP - General Internal Medicine 05/03/13 documented as of this encounter
--- OUTSIDE RECORDS SUMMARY | 2024-12-19 12:17 | XMS_ITS | Encounter Summary ---
Author Organization [employer] Address [address] [facility] 7t [place] [address] Care Team Providers Care Marketing Finance Manager Name Role Phone Jimmy Boo MD Primary Care Provider [phone] Encounter Details Date Type Department Care Team ([facility] Contact Info) Description 10/24/2023 Orders Only [facility] CHC MED & PEDS [address] [place], [place] [phone] Jimmy Boo MD [address] [place] [address] Herpes zoster without complication (Primary Dx) Social [...] t he electric, gas, oil or water Simpler threatened to shut off services in your [...] Description 04/01/2025 2:15 PM EST Office Visit [facility] ADULT DENTAL [address] [place] [address] Raza Boo documented as of this encounter Procedures Procedure Name Priority Date/Time Associated Diagnosis Comments XR FINGERS 2+ VIEWS RIGHT Routine 11/23/2023 11:55 AM EDT documented in this encounter Results * XR Fingers 2+ Views Right (11/23/2023 11:55 AM EDT) Anatomical Region Laterality Modality Upper Extremities, Fingers Right Radio graphic Imaging 11/23/2023 11:5 5 AM EDT Narrative 11/27/2023 2:15 PM EDT [address] [address] XRay Report Signed Patient: Lakisha Hearn MR#: [id number] : 1965 Acct:[id number] Age/Sex: 58 / F ADM Date: 11/23/23 Loc: [facility] Attending Dr: Jimmy Boo MD Ordering Physician: Jimmy Boo MD Date of Service: 11/23/23 Procedure(s): XR finger RT min 2V Accession Number(s): [id number] cc: Jimmy Boo MD EXAMINATION: XR FINGER, [...] unremarkable. XR/XR finger RT min 2V IMPRESSION: [id number] osteoarthritis of the first carpometacarpal joint with degenerative changes slightly progressed compared with February 2019 Electronically signed by: Kuldip Dill MD 11/27/2023 02:13 PM EDT RP Dictated By: Kuldip Dill MD Signed By: <Electronically signed by Kuldip Dill MD in OV> 11/27/23 1413 DD/ 1155 TD/TT: 11/23/23 1205 Aircraft Cleaner: STEVE Procedure Note Donotuseinterpreter, Image - 11/27/[address] [address] XRay Report Signed Patient: Lakisha Hearn AMR#: [id number] : 1965Acct:[id number] Age/Sex: 58 / FADM Date: 11/23/23 Loc: [facility] Attending Dr: Jimmy Boo MD Ordering Physician: Jimmy Boo MD Date of Service: 11/23/23 Procedure(s): XR finger RT min 2V Accession Number(s): [id number] cc: Jimmy Boo MD EXAMINATION: XR FINGER, [...] unremarkable. XR/XR finger RT min 2V IMPRESSION: [id number]-etpyhbaf osteoarthritis of the first carpometacarpal joint with degenerative changes slightly progressed compared with February 2019 Electronically signed by: Kuldip Dill MD 11/27/2023 02:13 PM EDT RP Dictated By: Kuldip Dill MD Signed By: <Electronically signed by Kuldip Dill MD inOV> 11/27/23 1413 DD/ 1155 TD/TT: 11/23/23 1205 Aircraft Cleaner: STEVE Jimmy Boo MD IMG XR PROCEDURES Final Res ult documented in this encounter Visit Diagnoses Diagnosis Herpes zoster without complication- Primary documented in this encounter Care Teams Marketing Finance Manager Relationship Specialty Start Date End Date Jimmy Boo MD [address] [place] [address] PCP - General Internal Medicine 05/03/13 documented as of this encounter
--- OUTSIDE RECORDS SUMMARY | 2024-12-19 12:17 | XMS_ITS | Encounter Summary ---
Author Organization [employer] Address [address] [facility] 7 [place] [address] Care Team Providers Care Shirt Presser Name Role Phone Jimmy Boo MD Primary Care Provider [phone] Reason for Visit * Reason Onset Date Comments Medication Question 06/21/2022 Encounter Details Date Type Department Care Team ([facility] Contact Info) Description 06/21/2022 Telephone [facility] MED & PEDS 505 [place], [place] [phone] Jimmy Boo MD 505 [place], [place] [phone] Medication Question Social History Tobacco Use Types [...] out. Pt requesting Rx be sent to [facility] pharmacy on [facility]. * Telephone Encounter - Sangeetha Glenys [...] Description 04/01/2025 2:15 PM EST Office Visit [facility] ADULT DENTAL 505 [place] [address] Raza Boo documented as of this encounter Visit Diagnoses Diagnosis Primary insomnia Persistent disorder of initiating or maintaining sleep SOB (shortness of breath) Shortness of breath documented in this encounter Care Teams Shirt Presser Relationship Specialty Start Date End Date Jimmy Boo MD 505 [place] [address] PCP - General Internal Medicine 05/03/13 documented as of this encounter
--- OUTSIDE RECORDS SUMMARY | 2024-12-19 12:17 | XMS_ITS | Encounter Summary ---
Author Organization [employer] Address 75 [facility] 7t [place] [address] Care Team Providers Care Shade Matcher Name Role Phone Jimmy Boo MD Primary Care Provider [phone] Reason for Visit * Reason Comments Med Refill Encounter Details Date Type Department Care Team ([facility] Contact Info) Description 12/29/2023 Refill [facility] MEDICINE [address] [place] [address] Jimmy Boo MD [address] [place] [address] Primary insomnia Social History Tobacco Use Types [...] t he electric, gas, oil or water [employer] threatened to shut off services in your [...] 04/01/2025 2:15 PM EST Office Visit [facility] ADULT DENTAL [address] [place] [address] Raza Boo documented as of this encounter Visit Diagnoses Diagnosis Primary insomnia Persistent disorder of initiating or maintaining sleep documented in this encounter Care Teams Shade Matcher Relationship Specialty Start Date End Date Jimmy Boo MD [address] [place] [address] PCP - General Internal Medicine 05/03/13 documented as of this encounter
--- OUTSIDE RECORDS SUMMARY | 2024-12-19 12:17 | XMS_ITS | Encounter Summary ---
Author Organization [employer] [facility] Address 75 [facility] 7 [place] [address] Care Team Providers Care Backend Tester Name Role Phone Jimmy Boo MD Primary Care Provider [phone] Encounter Details Date Type Department Care Team (Latest Contact Info) Description 03/14/2020 Abstract [facility] CONVERSIONS Dental, Provider, DDS Social History Tobacco [...] Description 04/01/2025 2:15 PM EST Office Visit [facility] ADULT DENTAL [address] [place] [address] Raza Boo documented as of this encounter Visit Diagnoses Not on filedocumented in this encounter Care Teams Backend Tester Relationship Specialty Start Date End Date Jimmy Boo MD [address] [place] [address] PCP - General Internal Medicine 05/03/13 documented as of this encounter
--- OUTSIDE RECORDS SUMMARY | 2024-12-19 12:17 | XMS_ITS | Encounter Summary ---
Author Organization [employer] Address 75 [facility] 7t [place] [address] Care Team Providers Care Automatic Dispenser Mechanic Name Role Phone Jimmy Boo MD Primary Care Provider [phone] Encounter Details Date Type Department Care Team (Latest Contact Info) Description 12/19/2024 Travel Social History Tobacco Use Types Packs/Day [...] 04/01/2025 2:15 PM EST Office Visit [facility] ADULT DENTAL [address] [place] [address] Raza Boo documented as of this encounter Visit Diagnoses Not on filedocumented in this encounter Additional Health Concerns Assessment Noted Time PHQ-9 Depression Total Score: 8 06/05/19 25 2:12 PM EST documented as of this encounter Care Teams Automatic Dispenser Mechanic Relationship Specialty Start Date End Date Jimmy Boo MD 505 [place] [address] PCP - General Internal Medicine 05/03/13 documented as of this encounter
--- OUTSIDE RECORDS SUMMARY | 2024-12-19 12:17 | XMS_ITS | Encounter Summary ---
Author Organization [employer] Address [address] [place] [address] 7 [place] [address] Care Team Providers Care Supervisor Customer Services Name Role Phone Jimmy Boo MD Primary Care Provider [phone]- [phone] Reason for Visit * Reason Comments Med Refill Encounter Details Date Type Department Care Team ([facility] Contact Info) Description 06/24/2022 Refill [facility] [address] [place] [address] Jimmy Boo MD [address] [place] [address] Primary insomnia Social History Tobacco Use Types [...] Upcoming Encounters Date Type Department Care Team ([facility] Contact Info) Description 04/01/2025 2:15 PM EST Office Visit [facility] ADULT DENTAL [address] [place] [address] Raza Boo documented as of this encounter Visit Diagnoses Diagnosis Primary insomnia Persistent disorder of initiating or maintaining sleep documented in this encounter Care Teams Supervisor Customer Services Relationship Specialty Start Date End Date Jimmy Boo MD [address] [place] [address] PCP - General Internal Medicine 05/03/13 documented as of this encounter
--- OUTSIDE RECORDS SUMMARY | 2024-12-19 12:17 | XMS_ITS | Encounter Summary ---
Author Organization [employer] Address 75 [facility] 7t [place] [address] Care Team Providers Care Security Patrol Driver Name Role Phone Jimmy Boo MD Primary Care Provider [phone] Encounter Details Date Type Department Care Team ([facility] Contact Info) Description 11/28/2023 Orders [address] [facility] CHC MED & PEDS [address] [place], [place] [phone] Jimmy Boo MD [address] [place] [address] Social History Tobacco Use Types Packs/Day Years [...] [facility] ADULT DENTAL 505 [place] [address] Raza Boo documented as of this encounter Visit Diagnoses Not on filedocumented in this encounter Care Teams Security Patrol Driver Relationship Specialty Start Date End Date Jimmy Boo MD 505 [place] [address] PCP - General Internal Medicine 05/03/13 documented as of this encounter
--- OUTSIDE RECORDS SUMMARY | 2024-12-19 12:17 | XMS_ITS | Encounter Summary ---
Author Organization [employer] Address [address] [facility] [address] 7t [place] [address] Care Team Providers Care Aquaculture Program Director Name Role Phone Jimmy Boo MD Primary Care Provider [phone] Reason for Visit * Reason Comments Med Refill Encounter Details Date Type Department Care Team ([facility] Contact Info) Description 11/03/2023 Refill [facility] CH[facility] ADULT DENTAL [address] [place] [address] Luis Guzman DDS [address] [place] [address] Social History Tobacco Use Types Packs/Day Years [...] Upcoming Encounters Date Type Department Care Team ([facility] st Contact Info) Description 04/01/2025 2:15 PM EST Office Visit [facility] ADULT DENTAL [address] [place] [address] Raza Boo documented as of this encounter Visit Diagnoses Not on filedocumented in this encounter Care Teams Aquaculture Program Director Relationship Specialty Start Date End Date Jimmy Boo MD [address] [place] [address] PCP - General Internal Medicine 05/03/13 documented as of this encounter
--- OUTSIDE RECORDS SUMMARY | 2024-12-19 12:17 | XMS_ITS | Encounter Summary ---
Author Organization [employer] Address 75 [facility] 7t [place] [address] Care Team Providers Care Driller'S Assistant Name Role Phone Jimmy Boo MD Primary Care Provider [phone] Reason for Visit * Reason Onset Date Comments Nurse Triage 07/02/2024 Encounter Details Date Type Department Care Team ([facility] st Contact Info) Description 07/02/2024 Telephone [facility] MEDICINE [address] [place] [address] Jimmy Boo MD [address] [place] [address] Nurse Triage Social History Tobacco Use Types [...] Pt had lumbar puncture on 06/14/24 at [facility] and has had some increased back pain since then. Pt denies redness, swelling at site but, is concerned as to the length of time having pain. ASK apt [facility] CHC today at 320pm. Pt agrees with [...] acuity questions The caller accepted this outcome. [phone] Pt had lumbar procedure on june 14. documented in this encounter Plan of Treatment Upcoming Encounters Date Type Department Care Team ([facility] st Contact Info) Description 04/01/2025 2:15 PM EST Office Visit [facility] ADULT DENTAL [address] [place] [address] Raza Boo documented as of this encounter Visit Diagnoses Not on filedocumented in this encounter Additional Health Concerns Assessment Noted Time PHQ-9 Depression Total Score: 8 06/05/19 25 2:12 PM EST documented as of this encounter Care Teams Driller'S Assistant Relationship Specialty Start Date End Date Jimmy Boo MD [address] [place] [address] PCP - General Internal Medicine 05/03/13 documented as of this encounter
--- OUTSIDE RECORDS SUMMARY | 2024-12-19 12:17 | XMS_ITS | Encounter Summary ---
Author Organization [employer] Address [address] [facility] [address] 7t [place] [address] Care Team Providers Care Overhauler Helper Name Role Phone Jimmy Boo MD Primary Care Provider [phone] Encounter Details Date Type Department Care Team ([facility] Contact Info) Description 08/30/2023 Orders Only [facility] CHC MED & PEDS [address] [place], [place] [phone] ProviderYnes MD Social History Tobacco Use Types Packs/Day Years [...] [facility] ADULT DENTAL [address] [place] [address] Raza Boo documented as of this encounter [...] on filedocumented in this encounter Care Teams Overhauler Helper Relationship Specialty Start Date End Date Jimmy Boo MD [address] [place] [address] PCP - General Internal Medicine 05/03/13 documented as of this encounter
--- OUTSIDE RECORDS SUMMARY | 2024-12-19 12:17 | XMS_ITS | Encounter Summary ---
Author Organization [employer] Address [address] [facility] [address] 7t [place] [address] Care Team Providers Care Industrial Insulator Name Role Phone Jimmy Boo MD Primary Care Provider [phone] Reason for Visit * Reason Comments Med Refill Encounter Details Date Type Department Care Team ([facility] Contact Info) Description 10/03/2023 Refill [facility] CHC ADULT DENTAL [address] [place], [place] [phone] Mary Jane Massey DMD Social History Tobacco [...] 2:15 PM EST Office Visit [facility] ADULT DENTAL [address] [place] [address] Raza Boo documented as of this encounter Visit Diagnoses Not on filedocumented in this encounter Care Teams Industrial Insulator Relationship Specialty Start Date End Date Jimmy Boo MD [address] [place] [address] PCP - General Internal Medicine 05/03/13 documented as of this encounter
--- OUTSIDE RECORDS SUMMARY | 2024-12-19 12:17 | XMS_ITS | Encounter Summary ---
Author Organization [employer] Address 75 [facility] 7t [place] [address] Care Team Providers Care Secondary Teacher Name Role Phone Jimmy Boo MD Primary Care Provider [phone] Reason for Visit * Reason Onset Date Comments Dr. Guzman refill Sodium Flouride 5000 cream too thpaste 07/12/2024 Encounter Details Date Type Department Care Team ([facility] Contact Info) Description 07/12/2024 Telephone [facility] ADULT DENTAL [address] [place] [address] Luis Guzman DDS [address] [place] [address] Dr. Guzman refill Sodium Flouride 5000 cream toothpaste Social History Tobacco Use Types Packs/Day Years [...] * Telephone Encounter - Zoey Geronimo - 07/12/2024 1:37 PM EDT Message for Dr. Guzman Patient is requesting a refill on Sodium Flouride [address] documented in this encounter Plan of Treatment Upcoming Encounters Date Type Department Care Team (Late st Contact Info) Description 04/01/2025 2:15 PM EST Office Visit [facility] ADULT DENTAL [address] [place] [address] Raza Boo documented as of this encounter Visit Diagnoses Not on filedocumented in this encounter Additional Health Concerns Assessment Noted Time PHQ-9 Depression Total Score: 8 06/05/19 25 2:12 PM EST documented as of this encounter Care Teams Secondary Teacher Relationship Specialty Start Date End Date Jimmy Boo MD [address] [place] [address] PCP - General Internal Medicine 05/03/13 documented as of this encounter
--- OUTSIDE RECORDS SUMMARY | 2024-12-19 12:17 | XMS_ITS | Encounter Summary ---
Author Organization [employer] Address [address] [place] [address] 7 [place] [address] Care Team Providers Care Recorder Of Deeds Name Role Phone Jimmy Boo MD Primary Care Provider [phone] Encounter Details Date Type Department Care Team ([facility] Contact Info) Description 04/13/[address] [facility] ADULT DENTAL [address] [place] [address] Zahira Harris DDS [address] [place], [place] [phone] Social History Tobacco Use Types Packs/Day Years [...] Care Team ([facility] Contact Info) Description 04/01/2025 2:15 PM EST Office Visit [facility] ADULT DENTAL [address] [place] [address] Raza Boo documented as of this encounter Visit Diagnoses Not on filedocumented in this encounter Care Teams Recorder Of Deeds Relationship Specialty Start Date End Date Jimmy Boo MD [address] [place], [place] [phone] PCP - General Internal Medicine 05/03/13 documented as of this encounter
--- OUTSIDE RECORDS SUMMARY | 2024-12-19 12:17 | XMS_ITS | Encounter Summary ---
Author Organization [employer] Address [address] [place] [address] 7 [place] [address] Care Team Providers Care Automotive Repair Technician Name Role Phone Jimmy Boo MD Primary Care Provider [phone] Reason for Referral * Consultation (Routine) - Closed Specialty Diagnoses / Procedures Referred By Contac t Referred To Contact Neurology Diagnoses Chronic tension-type headache, not intractable Jimmy Boo MD [address] [place] [address] Phone: tel: fax: Rory Garber MD [address] [place] [address] [place] [address] Phone: tel: fax: Referral ID Status Reason Start Date Expiration Date V isits Requested Visits Authorized [id number] Closed Specialty Services Required 03/18/2024 03/18/2025 1 1 Encounter Details Date Type Department Care Team (Late st Contact Info) Description 03/18/2024 Orders Only [facility] CHC MED & PEDS [address] [place], [place] [phone] Jimmy Boo MD [address] [place], [place] [phone] Chronic tension-type headache, not intractable (Primary Dx) [...] 2:15 PM EST Office Visit [facility] ADULT DENTAL [address] [place] [address] Raza Boo Scheduled Referrals Name Type Priority Associated Diagnoses Orde r Schedule Referral to Neurology Outpatient Referral Routine Chronic tension-type headache, not intractable Expected: 03/18/2024 (Approximate), Expires: 03/18/2025 documented as of this encounter Visit Diagnoses Diagnosis Chronic tension-type headache, not intractable- Primary Chronic tension type headache documented in this encounter Care Teams Automotive Repair Technician Relationship Specialty Start Date End Date Jimmy Boo MD [address] [place] [address] PCP - General Internal Medicine 05/03/13 documented as of this encounter
--- OUTSIDE RECORDS SUMMARY | 2024-12-19 12:17 | XMS_ITS | Encounter Summary ---
Author Organization [employer] Address 75 [facility] 7 [place] [address] Care Team Providers Care Science Instructor Name Role Phone Jimmy Boo MD Primary Care Provider [phone] Encounter Details Date Type Department Care Team ([facility] Contact Info) Description 07/07/2023 Orders Only [facility] MED & PEDS [address] [place], [place] [phone] Jimmy Boo MD [address] [place] [address] Diverticulosis of colon (Primary Dx) Social History [...] Department Care Team (Late Contact Info) Description 04/01/2025 2:15 PM EST Office Visit [facility] ADULT DENTAL [address] [place] [address] Raza Boo Scheduled Orders Name Type Priority Associated Diagnoses Orde r Schedule Fecal Globin by Immunochemistry Lab Routine Diverticulosis of colon Expected: 07/07/2023 (Approximate), Expires: 07/06/2024 Urinalysis Complete Lab Routine Diverticulosis of colon Expected: 07/07/2023 (Approximate), Expires: 07/06/2024 documented as of this encounter Visit Diagnoses Diagnosis Diverticulosis of colon- Primary Diverticulosis of colon (without mention of hemorrhage) documented in this encounter Care Teams Science Instructor Relationship Specialty Start Date End Date Jimmy Boo MD [address] [place] [address] PCP - General Internal Medicine 05/03/13 documented as of this encounter
--- OUTSIDE RECORDS SUMMARY | 2024-12-19 12:17 | XMS_ITS | Encounter Summary ---
Author Organization [employer] [facility] Address [address] [place] [address] 7 [place] [address] Care Team Providers Care Hydroelectric Plant Electrician Name Role Phone Jimmy Boo MD Primary Care Provider [phone] Encounter Details Date Type Department Care Team (Late Contact Info) Description 05/16/2023 Abstract [facility] ADULT DENTAL [address] [place] [address] Mary Jane Massey DMD Social History Tobacco [...] 2:15 PM EST Office Visit [facility] ADULT DENTAL [address] [place] [address] Raza Boo documented as of this encounter Visit Diagnoses Not on filedocumented in this encounter Care Teams Hydroelectric Plant Electrician Relationship Specialty Start Date End Date Jimmy Boo MD [address] [place] [address] PCP - General Internal Medicine 05/03/13 documented as of this encounter
--- OUTSIDE RECORDS SUMMARY | 2024-12-19 12:17 | XMS_ITS | Encounter Summary ---
Author Organization [employer] Address 75 [facility] 7t [place] [address] Care Team Providers Care Pulley Man Name Role Phone Jimmy Boo MD Primary Care Provider [phone] Encounter Details Date Type Department Care Team ([facility] Contact Info) Description 04/25/2024 Orders Only [facility] CHC MED & PEDS [address] [place], [place] [phone] Jimmy Boo MD [address] [place] [address] Primary insomnia Social History Tobacco Use Types [...] [facility] [address] [place] [address] Raza Boo documented as of this encounter Visit Diagnoses Diagnosis Primary insomnia Persistent disorder of initiating or maintaining sleep documented in this encounter Care Teams Pulley Man Relationship Specialty Start Date End Date Jimmy Boo MD [address] [place] [address] PCP - General Internal Medicine 05/03/13 documented as of this encounter
--- OUTSIDE RECORDS SUMMARY | 2024-12-19 12:17 | XMS_ITS | Encounter Summary ---
Author Organization [employer] Address 75 [facility] 7 [place] [address] Care Team Providers Care Public Finance Specialist Name Role Phone Jimmy Boo MD Primary Care Provider [phone] Encounter Details Date Type Department Care Team ([facility] Contact Info) Description 08/17/2022 Abstract [facility] MED & PEDS [address] [place], [place] [phone] Jimmy Boo MD [address] [place] [address] Social History Tobacco Use Types Packs/Day Years [...] Upcoming Encounters Date Type Department Care Team ([facility] Contact Info) Description 04/01/2025 2:15 PM EST Office Visit [facility] ADULT DENTAL [address] [place] [address] Raza Boo documented as of this encounter [...] EDT Recommended 5 year follow up ( [facility]) us Historical Provider HEALTH MAINTENANCE Final Result documented in this encounter Visit Diagnoses Not on filedocumented in this encounter Care Teams Public Finance Specialist Relationship Specialty Start Date End Date Jimmy Boo MD [address] [place] [address] PCP - General Internal Medicine 05/03/13 documented as of this encounter
--- OUTSIDE RECORDS SUMMARY | 2024-12-19 12:17 | XMS_ITS | Encounter Summary ---
Author Organization [employer] Address 75 [facility] 7t [place] [address] Care Team Providers Care Boring Mill Operator For Metal Name Role Phone Jimmy Boo MD Primary Care Provider [phone] Reason for Visit * Reason Onset Date Comments Nurse Triage 10/24/2023 Encounter Details Date Type Department Care Team ([facility] Contact Info) Description 10/24/2023 Telephone [facility] CH[facility] MED & PEDS [address] [place], [place] [phone] Jimmy Boo MD [address] [place] [address] Nurse Triage Social History Tobacco Use Types [...] past 12 months, has t he electric, [employer], oil or water [employer] threatened to shut off services in your [...] PCP. Please see notes, Please contact at [phone] * Telephone Encounter - Diane Garcia RN [...] a video call tomorrow when PCP opens [facility] schedule 10/25/23. Pt. Would [...] caller accepted this outcome Contact pt at [phone] documented in this encounter Plan of Treatment Upcoming Encounters Date Type Department Care Team (Late st Contact Info) Description 04/01/2025 2:15 PM EST Office Visit [facility] ADULT DENTAL [address] [place] [address] Raza Boo documented as of this encounter Visit Diagnoses Diagnosis Primary insomnia Persistent disorder of initiating or maintaining sleep documented in this encounter Care Teams Boring Mill Operator For Metal Relationship Specialty Start Date End Date Jimmy Boo MD [address] [place] [address] PCP - General Internal Medicine 05/03/13 documented as of this encounter
--- OUTSIDE RECORDS SUMMARY | 2024-12-19 12:17 | XMS_ITS | Encounter Summary ---
Author Organization [employer] Address 75 [facility] 7 [place] [address] Care Team Providers Care Garbage Depot Worker Name Role Phone Jimmy Boo MD Primary Care Provider [phone] Reason for Visit * Reason Comments Med Refill Encounter Details Date Type Department Care Team ([facility] Contact Info) Description 04/22/2022 Refill [facility] MEDICINE [address] [place], [place] [phone] Jimmy Boo MD [address] [place], [place] [phone] SOB (shortness of breath) Social History Tobacco [...] Team ([facility] Contact Info) Description 04/01/2025 2:15 PM EST Office Visit [facility] ADULT DENTAL [address] [place] [address] Raza Boo documented as of this encounter Visit Diagnoses Diagnosis SOB (shortness of breath) Shortness of breath documented in this encounter Care Teams Garbage Depot Worker Relationship Specialty Start Date End Date Jimmy Boo MD [address] [place] [address] PCP - General Internal Medicine 05/03/13 documented as of this encounter
--- OUTSIDE RECORDS SUMMARY | 2024-12-19 12:17 | XMS_ITS | Encounter Summary ---
Author Organization [employer] Address 75 [facility] 7t [place] [address] Care Team Providers Care Dam Operator Name Role Phone Jimmy Boo MD Primary Care Provider [phone] Reason for Visit * Reason Comments Med Refill Encounter Details Date Type Department Care Team ([facility] Contact Info) Description 12/28/2023 Refill [facility] MEDICINE [address] [place] [address] Jimmy Boo MD [address] [place] [address] Primary insomnia Social History Tobacco Use Types [...] t he electric, gas, oil or water [employer] threatened to shut off services in your [...] 04/01/2025 2:15 PM EST Office Visit [facility] ADULT DENTAL [address] [place] [address] Raza Boo documented as of this encounter Visit Diagnoses Diagnosis Primary insomnia Persistent disorder of initiating or maintaining sleep documented in this encounter Care Teams Dam Operator Relationship Specialty Start Date End Date Jimmy Boo MD [address] [place] [address] PCP - General Internal Medicine 05/03/13 documented as of this encounter
--- OUTSIDE RECORDS SUMMARY | 2024-12-19 12:17 | XMS_ITS | Encounter Summary ---
Author Organization [employer] Address [address] [place] [address] Care Team Providers Care Master At Arms Name Role Phone Jimmy Boo MD Primary Care Provider [phone] Reason for Visit * Reason Comments Med Refill Encounter Details Date Type Department Care Team ([facility] Contact Info) Description 07/27/2024 Refill [facility] ADULT DENTAL [address] [place] [address] Luis Guzman DDS [address] [place] [address] Social History Tobacco Use Types Packs/Day Years [...] Telephone Encounter - Luis Guzman DDS - 08/03/2024 10:49 AM EDT Approving, but needs appt for additional refills. documented in this encounter Plan of Treatment Upcoming Encounters Date Type Department Care Team (Late st Contact Info) Description 04/01/2025 2:15 PM EST Office Visit [facility] ADULT DENTAL [address] [place] [address] Raza Boo documented as of this encounter Visit Diagnoses Not on filedocumented in this encounter Additional Health Concerns Assessment Noted Time PHQ-9 Depression Total Score: 8 06/05/19 25 2:12 PM EST documented as of this encounter Care Teams Master At Arms Relationship Specialty Start Date End Date Jimmy Boo MD [address] [place] [address] PCP - General Internal Medicine 05/03/13 documented as of this encounter
--- OUTSIDE RECORDS SUMMARY | 2024-12-19 12:17 | XMS_ITS | Clinical Summary ---
Author Organization [address] [place] [address] Address [address] [place] [address] Phone Care Team Providers Care [facility] Name Role Phone Jimmy Boo MD Primary Care Provider [phone] Allergies Active Allergy Reactions Criticality Noted Date Comments Adhesive Tape-Silicones 10/30/2024 Bee Venom Protein (Honey Bee) 11/29/2019 Iodinated Contrast Media Other 10/30/2024 Other 11/29/2019 Topiramate Other 08/05/2011 Trouble breathing Other reaction(s): Trouble Breathing Medications zolpidem (AMBIEN) 10 mg tablet Take 1 tablet (10 mg total) by mouth at bedtime. Max Daily Amount: 10 mg Active ibuprofen (ADVIL,MOTRIN) 600 mg tablet Take 400 mg by mouth 1 (one) time each day if needed. 03/08/2024 Active Encounters Date Type Department Care Team Description 10/30/2024 9:00 AM EDT Consult [facility] - [address] [place] [phone] Ton Prather MD Multiple sclerosis (CMS/HCC V24, CMS/HCC V28) (Primary Dx); Other fatigue; Gait abnormality from Last 3 Months Surgical History Surgery Date Site/Laterality Comments OTHER SURGICAL HISTORY PROCEDURE: [place] EXC BARTHOL[place] GLAND/CYST; COMMENT: Vulva lipoma resection 06/2018 TUBAL LIGATION PROCEDURE: HISTORICAL TUBAL LIGATION OTHER SURGICAL HISTORY PROCEDURE: [place] CYSTOURETHROSCOPY W/INTERNAL URETHROTOMY; COMMENT: urethral diverticulum OTHER SURGICAL HISTORY PROCEDURE: HISTORICAL ARM SURGERY; COMMENT: Right arm ligament reconstruction OTHER SURGICAL HISTORY PROCEDURE: HISTORICAL EAR SURGERY OTHER SURGICAL HISTORY 11/25/2011 Right PROCEDURE: HISTORICAL PARTIAL UNILATERAL MASTECTOMY; COMMENT: Right breast partial mastectomy, axillary lymph node dissection for breast cancer WISDOM TOOTH EXTRACTION SHOULDER SURGERY N/A Medical History Medical History Date Comments Mechanical and motor problem s with neck and trunk DX:Mechanical and motor prob lems with neck and trunk Anemia DX:Anemia Seizures (CMS/HCC V24, CMS/HCC V28) DX:Seizures (HCC) Foot swelling DX:Foot swelling Multiple sclerosis (CMS/HCC V24, CMS/HCC V28) DX:Multiple sclerosis (HCC) Depression DX:Depression GERD (gastroesophageal reflu x disease) DX:GERD (gastroesophageal re flux disease) Asthma DX:Asthma Heart palpitations DX:Heart palp itations Mastodynia DX:Mastodynia History of breast cancer in female 11/25/2011 DX:History of breast cancer in female; COMMENT: Right IDC, pT1c N1a, ER/[place] pos, Her2 neg, s/p partial mastectomy and axillary node dissection 11/25/2011 Pap smear abnormality of cer vix/human papillomavirus (HPV) positive 02/22/2020 DX:Pap smear abnormality of cervix/human papillomavirus (HPV) positive; COMMENT: 08/2018 HPV positive, 11/07/2019 HPV positive Anxiety 02/22/2020 DX:Anxiety Arthritis Family History Medical History Relation Name Comments Lung cancer Father Colon cancer Mother Relation Name Status Comments Father Mother Social History Tobacco Use Types Packs/Day Years Used Date Smoking Tobacco: Never Smokeless Tobacco: Never Alcohol Use Standard Drinks/Week Comments Yes 0 (1 standard drink = 0.6 oz pur e alcohol) Comments Unknown Sex and Gender Information Value Date Recorded Sex Assigned at Not on file Legal Sex Female 11:46 AM EST Gender Identity Not on file Sexual Orientation Not on file Obstetrics History Last Filed Vital Signs Vital Sign Reading Time Taken Comments Blood Pressure 108/74 10/30/2024 9:25 AM EDT Pulse 76 10/30/2024 9:25 AM EDT Temperature 36.2 C (97.2 F) 10/30/2024 9:25 AM EDT Respiratory Rate - - Oxygen Saturation 97% 10/30/2024 9:2 5 AM EDT Inhaled Oxygen Concentration - - Weight 49.9 kg (110 lb) 10/30/2024 9:25 AM EDT weighed on scale because she also has seizures Height 149.9 cm (4' 11 ) 10/30/2024 9:2 5 AM EDT Body Mass Index 22.22 10/30/2024 9:25 AM EDT Plan of Treatment Upcoming Encounters Date Type Department Care Team (Late st Contact Info) Description 01/23/2025 11:40 AM EDT Office Visit [facility] [address] [place] [address] Ton Prather MD [address] [place] [phone] Health Maintenance Due Date Last Done Comments Breast Cancer Screening 1965 COVID-19 Vaccine (#1) 1970 Hepatitis B Vaccines (1 of 3 - 19+ 3-dose series) 1984 Pneumococcal Vaccine: 50+ Years (2 of 2 - PCV) 11/26/2012 11/27/2011 Zoster Vaccines (1 of 2) 06/18/2016 04/23/2016 Colorectal Cancer Screening: Colonoscopy 03/02/2022 HIV Screening 03/02/2022 Hepatitis C Screening 03/02/2022 Social Influencers of Health Screening 03/02/2022 Depression Screening 04/04/2024 Influenza Vaccine (#1) 2024 Cervical Cancer Screening: P ap Smear 05/10/2025 05/10/2022, 01/13/2021 DTaP,Tdap,and Td Vaccines (2 - Td or Tdap) 02/18/2029 02/18/2019 RSV Immunization Adult Patients (1 - 1-dose 75+ series) 2040 HIB Vaccines Aged Out No longer eligi [...] on patient's age to complete this topic MMR Vaccines Aged Out No longer eligi ble based on patient's age to complete this topic Meningococcal ACWY Vaccine Aged Out N o longer eligible based on patient's age to complete this topic Meningococcal B Vaccine Aged Out No l onger eligible based on patient's age to complete this topic RSV Immunization Patients Under 20 months Aged Out No longer eligible b ased on patient's age to complete this topic Varicella Vaccines Aged Out No longer eligible based on patient's age to complete this topic Procedures Procedure Name Priority Date/Time Associated Diagnosis Comments CBC WITH AUTO DIFFERENTIAL Routine 10/30/2024 10:25 AM EDT Multiple sclerosis ([facility] V24, [facility] V28) VARICELLA ZOSTER ANTIBODY IGG Routine 10/30/2024 10:25 AM EDT Multiple sclerosis ([facility] V24, [facility] V28) NEUROMYELITIS OPTICA, [id number] Routine 10/30/2024 10:25 AM EDT Multiple sclerosis ([facility] V24, [facility] V28) MYELIN OLIGODENDROCYTE GLYCOPROTEIN ANTIBODY WITH REFLEX TO TITER Routine 10/30/2024 10:25 AM EDT Multiple sclerosis ([facility] V24, [facility] V28) SJOGRENS ANTIBODIES, SSA AND SSB Routine 10/30/2024 10:25 AM EDT Multiple sclerosis ([facility] V24, [facility] V28) RHEUMATOID FACTOR Routine 10/30/2024 10: 25 AM EDT Multiple sclerosis ([facility] V24, [facility] V28) MATY IFA WITH TITER AND PATTERN Routine 10/30/2024 10:25 AM EDT Multiple sclerosis ([facility] V24, [facility] V28) CBC AND DIFFERENTIAL Routine 10/30/2024 10:25 AM EDT Multiple sclerosis ([facility] V24, [facility] V28) CREATININE, SERUM Routine 10/30/2024 10: 25 AM EDT Multiple sclerosis ([facility] V24, [facility] V28) BUN Routine 10/30/2024 10:25 AM EDT Multiple sclerosis ([facility] V24, [facility] V28) BORRELIA BURGDORFERI ANTIBODY Routine 10/30/2024 10:25 AM EDT Multiple sclerosis ([facility] V24, [facility] V28) VITAMIN D 25 HYDROXY Routine 10/30/2024 10:25 AM EDT Multiple sclerosis ([facility] V24, [facility] V28) VITAMIN B12 Routine 10/30/2024 10:25 AM EDT Multiple sclerosis ([facility] V24, [facility] V28) PAP SMEAR Routine 05/10/2022 from Last 3 Months or Most Recently Relevant to Health Maintenance Results * Myelin oligodendrocyte glycoprotein antibody with reflex to titer (10/30/2024 10:25 AM EDT) Pathologist [facility] MOG Antibody, Cell-based IFA Negative Negative 11/02/2024 6:05 AM EDT [facility] Blood Venous blood specimen / Unknown Venipuncture / Unknown 10/30/2024 10:25 AM EDT 10/30/2024 10:25 AM EDT Narrative [facility] - 11/02/2024 6:05 AM EDT Test(s) [id number] Antibody, Cell-based IFA was developed and its performance characteristics determined by [facility]. It has not been cleared or approved by the Food and Drug Administration. Performed at: - [address] [id number] Veterinary Medicine Doctor: Regine Drake MD, Phone: [phone] Ton Prather MD LAB BLOOD ORDERABLES Fin al Result [facility] * Sjogrens antibodies, SSA and SSB (10/30/2024 10:25 AM EDT) Pathologist [facility] Sjogren's SS-A (Ro) Ab Quant 1 <20 units LAB CHEMISTRY METHOD 11/03/2024 1:11 PM EDT [facility] Sjogren's SS-A (Ro) Ab Negative Negative LAB CHEMISTRY METHOD 11/03/2024 1:11 PM EDT [facility] Sjogren's SS-B (La) Ab Quant 1 <20 units LAB CHEMISTRY METHOD 11/03/2024 1:11 PM EDT [facility] Sjogren's SS-B (La) Ab Negative Negative LAB CHEMISTRY METHOD 11/03/2024 1:11 PM EDT [facility] Blood Venous blood specimen / Unknown Venipuncture / Unknown 10/30/2024 10:25 AM EDT 10/30/2024 10:25 AM EDT Ton Prather MD LAB BLOOD ORDERABLES Fin al Result Performing Organization Address [facility]/ZIP Co de Phone Number [facility] [address] [place] [address], * Neuromyelitis optica, [id number] (10/30/2024 10:25 AM EDT) Pathologist [facility] NMO IgG Autoantibodies <1.5 0.0 - 3.0 U/mL 11/05/2024 3:05 PM EDT [facility] Comment: Negative: 0.0 - 3.0 Positive: >3.0 Blood Venous blood specimen / Unknown Venipuncture / Unknown 10/30/2024 10:25 AM EDT 10/30/2024 10:25 AM EDT Narrative [facility] - 11/05/2024 3:05 PM EDT Performed at: 01 - [facility] [id number] Veterinary Medicine Doctor: Regine Drake MD, Phone: [phone] us Ton Prather MD LAB BLOOD ORDERABLES Fin al Result [facility] * MATY IFA with titer and pattern (10/30/2024 10:25 AM EDT) Pathologist [facility] MATY Negative Negative 10/31/2024 10:16 AM EDT [facility] Blood Venous blood specimen / Unknown Venipuncture / Unknown 10/30/2024 10:25 AM EDT 10/30/2024 10:25 AM EDT Ton Prather MD LAB BLOOD ORDERABLES Fin al Result [facility] [address] [place] [address], * CBC auto differential (10/30/2024 10:25 AM EDT) [facility] WBC 5.4 4.8 - 10.8 K/mcL LAB HEMETOLOGY METHOD 10/30/2024 2:22 PM EDT [facility] RBC 4.50 3.80 - 4.80 M/mcL LAB HEMETOLOGY METHOD 10/30/2024 2:22 PM EDT [facility] Hemoglobin 13.8 11.5 - 16.0 g/dL LAB HEMETOLOGY METHOD 10/30/2024 2:22 PM EDT [facility] Hematocrit 42.8 35.0 - 47.0 % LAB HEMETOLOGY METHOD 10/30/2024 2:22 PM EDT [facility] MCV 95.7 79.0 - 98.0 FL LAB HEMETOLOGY METHOD 10/30/2024 2:22 PM EDT [facility] MCH 30.9 27.0 - 32.0 pcg LAB HEMETOLOGY METHOD 10/30/2024 2:22 PM EDT [facility] MCHC 32.2 32.0 - 37.0 g/dL LAB HEMETOLOGY METHOD 10/30/2024 2:22 PM EDT [facility] RDW 12.7 11.0 - 15.0 % LAB HEMETOLOGY METHOD 10/30/2024 2:22 PM EDT [facility] Platelets 233 130 - 400 K/mcL LAB HEMETOLOGY METHOD 10/30/2024 2:22 PM [facility] MPV 10.2 7.0 - 11.0 FL LAB HEMETOLOGY METHOD 10/30/2024 2:22 PM [facility] NRBC 0.0 <1.0 % LAB HEMETOLOGY METHOD 10/30/2024 2:22 PM [facility] NRBC Absolute 0.00 <0.10 K/mcL LAB HEMETOLOGY METHOD 10/30/2024 2:22 PM [facility] Neutrophils Relative 60.7 % LAB HEMETOLOGY METHOD 10/30/2024 2:22 PM [facility] Lymphocytes Relative 24.7 % LAB HEMETOLOGY METHOD 10/30/2024 2:22 PM [facility] Monocytes Relative 11.8 % LAB HEMETOLOGY METHOD 10/30/2024 2:22 PM [facility] Eosinophils Relative 1.7 % LAB HEMETOLOGY METHOD 10/30/2024 2:22 PM [facility] Basophils Relative 0.7 % LAB HEMETOLOGY METHOD 10/30/2024 2:22 PM [facility] Immature Granulocytes Relative 0.4 % LAB HEMETOLOGY METHOD 10/30/2024 2:22 PM [facility] Neutrophils Absolute 3.30 1.50 - 7.00 K/mcL LAB HEMETOLOGY METHOD 10/30/2024 2:22 PM [facility] Lymphocytes Absolute 1.34 1.00 - 5.00 K/mcL LAB HEMETOLOGY METHOD 10/30/2024 2:22 PM [facility] Monocytes Absolute 0.64 0.20 - 1.00 K/mcL LAB HEMETOLOGY METHOD 10/30/2024 2:22 PM EDT [facility] Eosinophils Absolute 0.09 0.00 - 0.50 K/[facility] LAB HEMETOLOGY METHOD 10/30/2024 2:22 PM EDT [facility] Basophils Absolute 0.04 0.00 - 0.20 K/[facility] LAB HEMETOLOGY METHOD 10/30/2024 2:22 PM EDT [facility] Immature Granulocytes Absolute 0.02 0.00 - 0.03 K/[facility] LAB HEMETOLOGY METHOD 10/30/2024 2:22 PM EDT [facility] Blood Venous blood specimen / Unknown Venipuncture / Unknown 10/30/2024 10:25 AM EDT 10/30/2024 10:25 AM EDT us Ton Prather MD LAB BLOOD ORDERABLES Fin al Result Performing Organization Address [facility]/ZIP Co de Phone Number [facility] [address] [place] [address], [place] [phone] * Borrelia burgdorferi antibody (10/30/2024 10:25 AM EDT) [facility] Lyme Ab Negative Negative LAB CHEMISTRY METHOD 10/31/2024 9:29 AM EDT [facility] Comment: No laboratory evidence of infection with B. burgdorferi (Lyme disease). Negative results may occur in patients recently infected (<=14 days) with B. burgdorferi. If recent infection is suspected, repeat testing on a new sample collected in 7- 14 days is recommended. Blood Venous blood specimen / Unknown Venipuncture / Unknown 10/30/2024 10:25 AM EDT 10/30/2024 10:25 AM EDT us Ton Prather MD LAB BLOOD ORDERABLES Fin al Result Performing Organization Address City/[facility]/ZIP Co de Phone Number [facility] [address] [place] [address], * Creatinine (10/30/2024 10:25 AM EDT) Pathologist [facility] Creatinine 0.69 0.50 - 1.10 mg/dL LAB CHEMISTRY METHOD 10/30/2024 3:10 PM EDT [facility] eGFR 100 >=60 mL/min/1. 73m2 LAB CHEMISTRY METHOD 10/30/2024 3:10 PM EDT [facility] Comment:Calculation based on the Chronic Kidney Disease Epidemiology Collaboration (CKD-EPI) equation refit without adjustment for race. Blood Venous blood specimen / Unknown Venipuncture / Unknown 10/30/2024 10:25 AM EDT 10/30/2024 10:25 AM EDT us Ton Prather MD LAB BLOOD ORDERABLES Fin al Result Performing Organization Address City/[facility]/ZIP Co de Phone Number [facility] [address] [place] [address], * Vitamin D 25 hydroxy (10/30/2024 10:25 AM EDT) [facility] Vit D, 25-Hydroxy 33.3 30.0 - 80.0 ng/mL LAB CHEMISTRY METHOD 10/30/2024 4:28 PM EDT [facility] Blood Venous blood specimen / Unknown Venipuncture / Unknown 10/30/2024 10:25 AM EDT 10/30/2024 10:25 AM EDT us Ton Prather MD LAB BLOOD ORDERABLES Fin al Result [facility] [address] [place] [address], [place] [phone] * Rheumatoid factor (10/30/2024 10:25 AM EDT) [facility] Rheumatoid Factor <10.0 <15.0 I Unit/mL LAB CHEMISTRY METHOD 10/30/2024 3:10 PM EDT [facility] Blood Venous blood specimen / Unknown Venipuncture / Unknown 10/30/2024 10:25 AM EDT 10/30/2024 10:25 AM EDT us Ton Prather MD LAB BLOOD ORDERABLES Fin al Result Performing Organization Address [facility] de Phone Number [facility] [address] [place] [address], [place] [phone] * Varicella zoster antibody IgG (10/30/2024 10:25 AM EDT) Pathologist [facility] Varicella IgG Positive Positive LAB CHEMISTRY METHOD 10/31/2024 9:28 AM EDT [facility] Varicella Zoster IgG 12.50 >=1.00 S/CO LAB CHEMISTRY METHOD 10/31/2024 9:28 AM EDT [facility] Blood Venous blood specimen / Unknown Venipuncture / Unknown 10/30/2024 10:25 AM EDT 10/30/2024 10:25 AM EDT Narrative [facility] - 10/31/2024 9:28 AM EDT Interpretation >= 1.00 S/CO is considered to be consistent with Immunity us Ton Prather MD LAB BLOOD ORDERABLES Fin al Result Performing Organization Address [facility] de Phone Number [facility] [address] [place] [address], [place] [phone] * BUN (10/30/2024 10:25 AM EDT) [facility] BUN 13 5 - 25 mg/dL LAB CHEMISTRY METHOD 10/30/2024 3:10 PM EDT [facility] Blood Venous blood specimen / Unknown Venipuncture / Unknown 10/30/2024 10:25 AM EDT 10/30/2024 10:25 AM EDT us Ton Prather MD LAB BLOOD ORDERABLES Fin al Result [facility] [address] [place] [address], [place] [phone] * Vitamin B12 (10/30/2024 10:25 AM EDT) Vitamin B-12 565 250 - 900 pcg/mL LAB CHEMISTRY METHOD 10/30/2024 3:32 PM EDT [facility] Blood Venous blood specimen / Unknown Venipuncture / Unknown 10/30/2024 10:25 AM EDT 10/30/2024 10:25 AM EDT us Ton Prather MD LAB BLOOD ORDERABLES Fin al Result Performing Organization Address City/[facility]/ZIP Co de Phone Number [facility] [address] [place] [address], [place] [phone] * Pap smear (05/10/2022) 05/10/2022 Narrative HISTORICAL TESTING LAB RESULTING AGENCY - 05/21/2022 11:11 AM EST [id number] THINPREP PAP, IMAGED: ATYPICAL SQUAMOUS CELLS OF UNDETERMINED SIGNIFICANCE (ASCUS) . BLOOD AND ABUNDANT ACUTE INFLAMMATORY CELLS ARE PRESENT. ROCHELLE MUHAMMAD , SALLY(ASCP) (CASE SCREENED 05 19 2022) PATRICIA ESPINOZA M.D. , PATHOLOGIST (CASE ELECTRONICALLY SIGNED 05 21 2022) RESULT OF APTIMA HIGH RISK HPV ASSAY: HIGH RISK HPV: POSITIVE (SEROTYPES 16,18,31,33,35,39,45,51,52,56,58,59,66,68) RESULTS OF APTIMA HPV 16 AND 18/45 GENOTYPE ASSAY: HPV 16: POSITIVE HPV 18/45: NEGATIVE COMPLETED ON 2022-05-21 ADEQUACY: SATISFACTORY ENDOCERVICAL/TRANSFORMATION ZONE COMPONENT PRESENT. SOURCE: THINPREP PAP HPV ANY DX: REFLEX 16 AND 18, CERVICAL, IMAGED CLINICAL INFORMATION: HPV ANY DIAGNOSIS. POSITIVE HIGH RISK, [795.0] us Paolo Becerra MD LAB CYTOLOGY ORDERABLES Final Re sult HISTORICAL TESTING LAB RESULTING AGENCY from Last 3 Months or Most Recently Relevant to Health Maintenance Insurance [facility] Member Subscriber Plan / Payer (Ef fective 2022-Present) Name:LAKISHA STEVENS Relation to Subscriber:Self Name:Lakisha Stevens Payer ID:[id number] Group ID:[id number] Type:Not on file Address: [place] [address] [address] [address] Care Teams Hospital Cna Relationship Specialty Start Date End Date Jimmy Boo MD [address] [place] [address] PCP - General Internal Medicine 11/23/19
--- OUTSIDE RECORDS SUMMARY | 2024-12-19 12:17 | XMS_ITS | Patient Health Record ---
Author Organization [facility] Address [address] [place] [address] Care Team Providers Care Air Box Tester Name Role Phone Jimmy Boo M.D. Primary Care Provider Un available Keyshawn Lopez Unavailable [phone] Allergies Allergen (clinical drug ingredient) Drug/Non Drug [...] Problem Status W/U Status Risk Notes Problem [id number] Encounter for screening for malignant neoplasm of colon (Z12.11) Active confirmed Problem Screening for malignant neoplasm of rectum (302135779) Encounter for screening for malignant neoplasm of rectum (Z12.12) Active confirmed Problem [id number] Family history o f colon cancer (Z80.0) Active confirmed Problem 83150088 Constipation, unspecified constipation type (K59.00) Active confirmed Problem Diverticulosis of colon (427427385) Diverticulosis of colon (K57.30) Active confirmed Plan Of Treatment Future Test Test Name Order Date COLONOSCOPY 12/19/2015 COLONOSCOPY 03/17/2022 Insurance Providers Payer Name Payer Address Payer Phone Subscriber Number Group Number Insured Name Patient Relationship to Insured Coverage Start Date Coverage End Date [facility] [address] [place] [phone] [id number] PATRICIA DOOLEY Self - patient is the insured Medical (General) History Medical History History ICD Code Epilepsy--off seizure meds Multiple sclerosis Vertigo Denies DC,DM,CVA,Lung disease,renal dise ase Hx of breast cancer 2011--ri ght--lumpectomy, XRT , chemo--sees Dr. Samuel at [facility] x 3 Neg. colonoscopy in 2005, 06/2011, and 2016 Surgical History Surgery Date(Month/Year) Urethral diverticulum Right arm surgery BTL Exploratory laparoscopy Ear surgery for tubes Shoulder surgery--right shoulder 09/2015 Right breast cancer --lumpectomy Bone removed from left thumb Carpal tunnel on the left Cystoscopy 02/2022
--- OUTSIDE RECORDS SUMMARY | 2024-12-19 12:17 | XMS_ITS | Encounter Summary ---
Author Organization [employer] [facility] Address [address] [facility] 7 [place] [address] Care Team Providers Care Felt Checker Name Role Phone Jimmy Boo MD Primary Care Provider [phone] Encounter Details Date Type Department Care Team (Latest Contact Info) Description 08/16/2018 Abstract [facility] CONVERSIONS Dental, Provider, DDS Social [...] 04/01/2025 2:15 PM EST Office Visit [facility] [address] [place] [address] Raza Boo documented as of this encounter Visit Diagnoses Not on filedocumented in this encounter Care Teams Felt Checker Relationship Specialty Start Date End Date Jimmy Boo MD [address] [place] [address] PCP - General Internal Medicine 05/03/13 documented as of this encounter
--- OUTSIDE RECORDS SUMMARY | 2024-12-19 12:18 | XMS_ITS | Encounter Summary ---
Author Organization [employer] [facility] Address [address] [place] [address] 7 [place] [address] Care Team Providers Care Fleet Maintenance Foreman Name Role Phone Jimmy Boo MD Primary Care Provider [phone] Reason for Visit * Reason Onset Date Comments rct appt 02/17/2023 Encounter Details Date Type Department Care Team ([facility] Contact Info) Description 02/17/2023 Telephone [facility] ADULT D[facility]AL [address] [place] [address] Tricia Davis DDS rct appt Social History Tobacco Use Types [...] Upcoming Encounters Date Type Department Care Team ([facility] Contact Info) Description 04/01/2025 2:15 PM EST Office Visit [facility] ADULT [facility]AL [address] [place] [address] Raza Boo documented as of this encounter Visit Diagnoses Not on filedocumented in this encounter Care Teams Fleet Maintenance Foreman Relationship Specialty Start Date End Date Jimmy Boo MD [address] [place] [address] PCP - General Internal Medicine 05/03/13 documented as of this encounter
--- OUTSIDE RECORDS SUMMARY | 2024-12-19 12:18 | XMS_ITS | Encounter Summary ---
Author Organization [employer] Address [address] [facility] 7t [place] [address] Care Team Providers Care Unit Clerk Name Role Phone Jimmy Boo MD Primary Care Provider [phone]- [phone] Reason for Visit * Reason Onset Date Comments case back from lab?? 10/19/2022 Encounter Details Date Type Department Care Team ([facility] Contact Info) Description 10/19/2022 Telephone [facility] [address] [place] [address] Luis Guzman, DDS [address] [place] [address] case back from lab?? Social History Tobacco [...] Upcoming Encounters Date Type Department Care Team ([facility] Contact Info) Description 04/01/2025 2:15 PM EST Office Visit [facility] ADULT D[facility]AL [address] [place] [address] Raza Boo documented as of this encounter Visit Diagnoses Not on filedocumented in this encounter Care Teams Unit Clerk Relationship Specialty Start Date End Date Jimmy Boo MD [address] [place] [address] PCP - General Internal Medicine 05/03/13 documented as of this encounter
--- OUTSIDE RECORDS SUMMARY | 2024-12-19 12:18 | XMS_ITS | Encounter Summary ---
Author Organization [employer] Address [address] [place] [address] 7 [place] [address] Care Team Providers Care Silver Steward Name Role Phone Jimmy Boo MD Primary Care Provider [phone]- [phone] Encounter Details Date Type Department Care Team ([facility] Contact Info) Description 03/02/2023 Abstract [facility] ADULT DENTAL [address] [place] [address] Zahira Harris DDS [address] [place], [place] [phone] Social History Tobacco Use Types Packs/Day Years [...] Upcoming Encounters Date Type Department Care Team ([facility] Contact Info) Description 04/01/2025 2:15 PM EST Office Visit [facility] ADULT DENTAL [address] [place] [address] Raza Boo documented as of this encounter Visit Diagnoses Not on filedocumented in this encounter Care Teams Silver Steward Relationship Specialty Start Date End Date Jimmy Boo MD [address] [place], [place] [phone] PCP - General Internal Medicine 05/03/13 documented as of this encounter
--- OUTSIDE RECORDS SUMMARY | 2024-12-19 12:18 | XMS_ITS | Encounter Summary ---
Author Organization [employer] Address [address] [place] [address] 7 [place] [address] Care Team Providers Care Hearing Dog Trainer Name Role Phone Jimmy Boo MD Primary Care Provider [phone]- [phone] Reason for Visit * Reason Comments Med Refill Encounter Details Date Type Department Care Team ([facility] Contact Info) Description 06/22/2022 Refill [facility] MED & PEDS [address] [place], [place] [phone] Jimmy Boo MD [address] [place] [address] Primary insomnia Social History Tobacco Use Types [...] Upcoming Encounters Date Type Department Care Team ([facility] Contact Info) Description 04/01/2025 2:15 PM EST Office Visit [facility] ADULT DENTAL [address] [place] [address] Raza Boo documented as of this encounter Visit Diagnoses Diagnosis Primary insomnia Persistent disorder of initiating or maintaining sleep documented in this encounter Care Teams Hearing Dog Trainer Relationship Specialty Start Date End Date Jimmy Boo MD [address] [place] [address] PCP - General Internal Medicine 05/03/13 documented as of this encounter
--- OUTSIDE RECORDS SUMMARY | 2024-12-19 12:18 | XMS_ITS | Clinical Summary ---
Author Organization [employer] Address [address] [place] [address] 7t [place] [address] Care Team Providers Care Medical Authorization Specialist Name Role Phone Jimmy Boo MD Primary Care Provider [phone] Allergies Active Allergy Reactions Criticality Noted Date Comments Honey Bee Venom 08/13/2013 Iodinated Contrast Media Angioedema 12/08/2017 Other reaction(s): Pruritic rash Pineapple 01/20/2024 Sulfa Antibiotics 04/10/2018 Topiramate 08/05/2011 Other reaction(s): Trouble Breathing Medications * This document contains information received from the source organization and may not represent a complete record from that organization. B Complex-Bioti n-FA (B-100 TR) tablet controlled-re lease Take 1 tablet by mouth in the morning. 06/24/19 21 Active sodium chloride (Isanti) 0.65 % nasal spray Administer 2 sprays into affected nostril(s) every 6 (six) hours. 10/29/19 22 Active zoster vaccine-recom binant adjuvanted (Shingrix) 50 MCG/0.5ML vaccine Inject 0.5 mL into the shoulder, thigh, or buttocks. 11/20/19 21 Active Sod Fluoride-Pota ssium Nitrate 1.1-5 % paste Apply a smear of the paste on the brush, and brush twice daily. 112 g 07/19/19 24 Active Additional Information Patient not taking.Reported on 08/18/2023 Diclofenac Sodium 1 % gelIndication s:Chronic pain of right thumb,Muscle spasm To apply to the affected area 3 times a day 100 g 1 11/23/19 24 Active pseudoephedri ne (Sudafed) 30 MG tabletIndicat ions:Ear pressure, bilateral Take 1 tablet (30 mg) by mouth every 4 (four) hours if needed for congestion for up to 10 days. 30 tablet 02/21/20 24 Active Sodium Fluoride 1.1 % cream [place] teeth for 2 minutes, morning and night. Spit, do not rinse. Do not eat or drink anything for 30 minutes following use. 112 g 3 03/13/20 24 Active fexofenadine (Meliza) 180 MG tabletIndicat ions:Ear pressure, bilateral TAKE 1 TABLET BY MOUTH EVERY DAY IF NEEDED FOR ALLERGIES 90 tablet 03/14/20 24 Active Diclofenac Sodium 1 % gelIndication s:Acute midline low back pain without sciatica To apply to the affected area 3 times a day 100 g 07/03/19 25 Active Sodium Fluoride 5000 PPM 1.1 % gel APPLY A SMEAR OF THE TOOTHPASTE ON TOOTHBRUSH. BRUSH TWICE DAILY. SPIT, DO NOT RINSE. 100 g 08/04/19 25 Active albuterol 108 (90 Base) MCG/ACT inhalerIndica tions:SOB (shortness of breath) INHALE 2 PUFFS BY MOUTH EVERY 4 TO 6 HOURS NEEDED 18 g 3 09/20/19 25 Active Sodium Fluoride (PreviDent 5000 Booster Plus) 1.1 % paste Apply a smear of paste on the brush; brush thoroughly twice daily. Spit, do not rinse. 112 g 2 09/28/19 25 Active zolpidem (Ambien) 10 MG tabletIndicat ions:Primary insomnia TAKE 1 TABLET BY MOUTH EVERYDAY AT BEDTIME 30 tablet 11/27/19 25 Active zolpidem (Ambien) 10 MG tabletIndicat ions:Primary insomnia TAKE 1 TABLET BY MOUTH EVERYDAY AT BEDTIME 30 tablet 10/24/19 25 025 Discontinued(Re order (will not trigger notification to Pharmacy)) Active Problems Problem Noted Date Diagnosed Date Right hand pain 12/19/2024 Diverticulosis of colon 06/21/2023 Malignant neoplasm of breast 06/21/2023 Anemia 08/13/2013 Asthma 08/13/2013 Gastroesophageal reflux disease 10/21/2011 Depressive disorder 08/05/2011 Multiple sclerosis 08/05/2011 Encounters * This document contains information received from the source organization and may not represent a complete record from that organization. Date Type Department Care Team Description 12/19/2024 9:00 AM EDT Office Visit [facility] MED & [facility]EDS [address] [place] [address] Jimmy Boo MD Right hand pain (Primary Dx); Subcutaneous nodule 12/19/2024 Travel 12/12/2024 Patient Outreach [facility] [address] [place] [address] Jimmy Boo MD Pre-visit Planning (SDOH screening completed on 05/18/24) 11/26/2024 Refill [facility] MED & PEDS [address] [place] [address] Jimmy Boo MD Primary insomnia 10/23/2024 Refill [facility] [address] [place] [address] Jimmy Boo MD Primary insomnia 09/27/2024 3:00 PM EDT Office Visit [facility] ADULT DENTAL [address] [place] [address] Raza Boo Dental calculus (Primary Dx) 09/19/2024 Refill [facility] [address] [place] [address] Jimmy Boo MD SOB (shortness of breath); Primary insomnia from Last 3 Months Immunizations Immunization Administration Dates Next Due Pneumococcal Polysaccharide PPSV23 [...] Mass Index 22.62 12/19/2024 9:04 AM EDT Plan of Treatment Upcoming Encounters Date Type Department Care Team (Late st Contact Info) Description 04/01/2025 2:15 PM EST Office Visit [facility] ADULT DENTAL [address] [place] [address] Raza Boo Health Maintenance Due Date Last Done Comments [...] 01/28/2024 01/27/2023, 01/03, 11/16/2019, Additional history exists COVID-19 Vaccine (3 - 2024- season) 2024 12/18/2020, 11/27/2020 Influenza Vaccine (#1) 2024 DTaP/Tdap/Td Vaccines (1 - Tdap) 02/20/2025 02/18/2019 Postponed from 02/19/2019 (Patient Refused) Dental X-Ray: Bitewings 03/13/2025 03/12/20, 02/11/2023, 12/28/2022 Dental Oral Exam 03/30/2025 09/27/2024, 12/2023, 07/12/2023, Additional history exists Dental Prophylaxis 03/30/2025 09/27/2024, 1 05/13/2023, 07/12/2023, Additional history exists SDOH Screening 05/18/2025 05/18/2024 Alcohol/Substance Use Screening 06/04/2025 06/04/2024 Depression Screening 06/04/2025 06/04/2024, 06/05/19 Disability Screening 06/04/2025 06/04/2024 Tobacco Screening 09/27/2025 09/27/2024 Dental X-Ray: Full Mouth 03/13/2027 03/12/2024 Colonoscopy [...] Comments XR HAND 3+ VIEWS RIGHT Routine 10:14 AM EDT Right hand pain COMPREHENSIVE PERIODONTAL EVALUATION - NEW OR ESTABLISHED PATIENT Routine 09/27/2024 3:00 PM EDT PERIODIC ORAL EVALUATION - ESTABLISHED PATIENT Routine 09/27/2024 3:00 PM EDT TOPICAL APPLICATION OF FLUORIDE VARNISH Routine 09/27/2024 3:00 PM EDT ORAL HYGIENE INSTRUCTIONS Routine 09/27/2024 3:00 PM EDT CASE PRESENTATION, DETAILED AND EXTENSIVE TREATMENT PLANNING Routine 09/27/2024 3:00 PM EDT PROPHYLAXIS - ADULT Routine 09/27/2024 3 :00 PM EDT INTRAORAL - COMPLETE SERIES OF RADIOGRAPHIC IMAGES [...] Recently Relevant to Health Maintenance Results * XR Hand 3+ Views Right (12/19/2024 10:14 AM EDT) Anatomical Region Laterality Modality Upper Extremities, Hand Right Radiogra phic Imaging 12/19/2024 10:1 4 AM EDT Narrative 12/19/2024 10:24 AM EDT [address] [address] XRay Report Signed Patient: Lakisha Hearn MR#: [id number] : 1965 Acct:[id number] Age/Sex: 59 / F ADM Date: 12/19/24 Loc: HO.XRAY Attending Dr: Jimmy Boo MD Ordering Physician: Jimmy Boo MD Date of Service: 12/19/24 Procedure(s): XR hand RT min 3V Accession Number(s): [id number] cc: Jimmy Boo MD Reason for Exam: [...] Chai Lux MD 12/19/2024 10:21 AM EDT Dictated By: Chai Lux MD Signed By: <Electronically signed by Chai Lux MD in OV> 12/19/24 1021 DD/ 1014 TD/TT: 12/19/24 1017 Early Childhood Education Specialist: Procedure Note Donotuseinterpreter, Image - 12/19/[address] [address] XRay Report Signed Patient: Lakisha Hearn AMR#: [id number] : 1965Acct:[id number] Age/Sex: 59 / FADM Date: 12/19/24 Loc: HO.XRAY Attending Dr: Jimmy Boo MD Ordering Physician: Jimmy Boo MD Date of Service: 12/19/24 Procedure(s): XR hand RT min 3V Accession Number(s): [id number] cc: Jimmy Boo MD Reason for Exam: [...] Chai Lux MD 12/19/2024 10:21 AM EDT Dictated By: Chai Lux MD Signed By: <Electronically signed by Chai Lux MD in OV> 12/19/24 1021 DD/ 1014 TD/TT: 12/19/24 1017 Early Childhood Education Specialist: us Jimmy Boo MD IMG XR PROCEDURES Edited Re sult - Final * Mammography (01/27/2023) Mammogram negative Anatomical Region Laterality Modality Other Narrative 01/27/2023 Bi rads -negative us Jimmy Boo MD HEALTH MAINTENANCE Final Re sult * Hepatitis C Antibody Reflex (11/09/2022 1:51 PM EDT) Pathologist [facility] Hepatitis C Antibody Nonreactive Nonreactive [facility] Comment:Antibodies to HCV no t detected; does not exclude early acuteHCV infection. 11/09/2022 1:51 PM EDT 11/09/2022 5:49 PM EDT Venecia Guadalupe [facility] BLOOD ORDERABLES Rach l Result Performing Organization Address City/[facility]/ZIP Co de Phone Number [facility] [address] [place] [phone] * HIV Ab/Ag ([facility]) (11/09/2022 1:51 PM EDT) [facility] HIV AB/AG Nonreactive Nonreactive [facility] Comment:HIV-1 p24 Ag and/or HIV-1/HIV-2 Ab not detected.A test result that is nonreactive does not exclude thepossibility of exposure to or infection with HIV-1 and/orHIV-2. Nonreactive results in this assay for individualswith prior exposure to HIV-1 and/or HIV-2 may be due toantigen and antibody levels that are below the limit ofdetection of this assay.The [employer] HIV Ag/Ab Combo assay result andsupplemental assay results should be interpreted inconjunction with the patient's clinical presentation,history and other laboratory results. If the results areinconsistent with clinical evidence, additional testing issuggested to confirm the result. 11/09/2022 1:51 PM EDT 11/09/2022 5:49 PM EDT Venecia Guadalupe [facility] BLOOD ORDERABLES Rach l Result Performing Organization Address [facility]/ZIP Co de Phone Number [facility] [address] [place] [phone] * Hm Colonoscopy (06/04/2022) [facility] Colonoscopy Normal Normal 06/04/2022 Jacey Donnelly - [...] [facility] Comment: EXPLANATORY NOTE: The Pap is a screening test for cervical cancer. It is not a diagnostic test and is subject to false negative and false positive results. It is most reliable when a satisfactory sample, regularly obtained, is submitted with relevant clinical findings and history, and when the Pap result is evaluated along with historic and current clinical information. COMMENT: This Pap test has been evaluated with computer assisted technology. [facility] Assistant Produce Manager: SEE COMMENT [facility] Comment: DCR, CT(ASCP) CT screening location: [place] [address] HPV nRNA E6/E7 Not Detected Not Detected [facility] Comment: Methodology: [employer]-Mediated Amplification This assay detects E6/E7 viral messenger RNA (mRNA) from 14 high-risk HPV types (16,18,31,33,35,39,45,51,52,56,58,59,66,68). The analytical performance characteristics of this assay have been determined by [employer]. The modifications have not been cleared or approved by the FDA. This assay has been validated pursuant to the CLIA regulations and is used for clinical purposes. For additional information, please refer to http://education.[employer]/faq/LHH612t3 (This link if provided for information/ educational purposes only.) Interpretation/Res ult: SEE COMMENT [facility] Comment: Negative for intraepithelial lesion or malignancy. Atrophic pattern; predominantly parabasal cells LMP: NONE GIVEN [facility] Prev. BX: NONE [facility]IV[facility] Prev. PAP: LEDA HPV+ 2020 NEG [facility] SOURCE: None given [facility] Statement Of Adequacy: SATISFACTORY FOR EVALUATION [facility] 01/22/2021 11:5 3 AM EDT Venecia Vargasgeorge CN LAB PATHOLOGY ORDERABLES Final Result [facility] [address] from Last 3 Months or Most Recently Relevant to Health Maintenance Insurance [facility] [address] [id number] Care Teams Medical Authorization Specialist Relationship Specialty Start Date End Date Jimmy Boo MD [address] [place] [phone] PCP - General Internal Medicine 05/03/13
--- OUTSIDE RECORDS SUMMARY | 2024-12-19 12:18 | XMS_ITS | Encounter Summary ---
Author Organization [employer] Address [address] [place] [address] 7 [place] [address] Care Team Providers Care Steamer Blocker Name Role Phone Jimmy Boo MD Primary Care Provider [phone] Reason for Visit * Reason Comments Med Refill Encounter Details Date Type Department Care Team ([facility] Contact Info) Description 06/23/2022 Refill [facility] MED [facility] PED[facility] [address] [place] [address] Jimmy Boo MD [address] [place] [address] Primary insomnia Social History Tobacco Use Types [...] Upcoming Encounters Date Type Department Care Team ([facility] Contact Info) Description 04/01/2025 2:15 PM EST Office Visit [facility] ADULT DENTAL [address] [place] [address] Raza Boo documented as of this encounter Visit Diagnoses Diagnosis Primary insomnia Persistent disorder of initiating or maintaining sleep documented in this encounter Care Teams Steamer Blocker Relationship Specialty Start Date End Date Jimmy Boo MD [address] [place] [address] PCP - General Internal Medicine 05/03/13 documented as of this encounter
== END 2024-12-19 10:06 | disposition home or self-care (01) ==
LOC: HO.XRAY 10:05
PROVIDERS: PCP Internal Medicine; Visit Provider Internal Medicine
DX: M79.641 Pain in right hand (principal)
CPT/HCPCS: 73130

== ENCOUNTER → 2024-12-19 10:10 | Outpatient (BNV) | payer OTHER, SELFPAY | PROVIDERS: PCP Internal Medicine; Visit Provider Radiology Diagnostic Radiology | DX: M19.041 Primary osteoarthritis, right hand (principal) | CPT/HCPCS: 73130 ==

== ENCOUNTER 2024-12-28 09:31 | Outpatient (REF) | payer OTHER, SELFPAY ==
--- NOTE | ~2024-12-28 | US_ITS ---
CLINICAL HISTORY: SUBCUTANEOUS NODULE,RT INGUINA PERINEAL AREA US pelvis limited nonvascular Comparison: None Findings: Ultrasound the area of clinical concern right labia demonstrates a hypoechoic superficial lesion slightly hyperemic measuring 2.6 x 1.1 x 0.6 cm. This may be inflammatory in nature no drainable fluid collection is demonstrated underlying mass not excluded. MRI may be of further diagnostic value with contrast. Impression: Focal possible inflammatory process in the right labia rather than underlying mass which can not be entirely excluded. Clinical correlation is strongly advised. Contrast-enhanced MRI may be of further diagnostic value. This document has been electronically signed by: Jarad Guan MD on 12/29/2024 15:49:36
--- OUTSIDE RECORDS SUMMARY | 2024-12-28 10:26 | XMS_ITS | Encounter Summary ---
Author Organization [employer] Address [address] [facility] 7t [place] [address] Care Team Providers Care Collection Support Specialist Name Role Phone Jimmy Boo MD Primary Care Provider [phone] Reason for Visit * Reason Comments Med Refill Encounter Details Date Type Department Care Team ([facility] st Contact Info) Description 12/28/2023 Refill [facility] MEDICINE [address] [place] [address] Jimmy Boo MD [address] [place] [address] Primary insomnia Social History Tobacco Use Types [...] t he electric, gas, oil or water [employer] threatened to shut off services in your [...] Description 04/01/2025 2:15 PM EST Office Visit [facility] ADULT DENTAL [address] [place] [address] Raza Boo documented as of this encounter Visit Diagnoses Diagnosis Primary insomnia Persistent disorder of initiating or maintaining sleep documented in this encounter Care Teams Collection Support Specialist Relationship Specialty Start Date End Date Jimmy Boo MD [address] [place] [address] PCP - General Internal Medicine 05/03/13 documented as of this encounter
--- OUTSIDE RECORDS SUMMARY | 2024-12-28 10:26 | XMS_ITS | Encounter Summary ---
Author Organization [employer] Address [address] [facility] 7 [place] [address] Care Team Providers Care Application Architect Name Role Phone Jimmy Boo MD Primary Care Provider [phone] Encounter Details Date Type Department Care Team (Latest Contact Info) Description 08/16/2018 Abstract [facility] CONVERSIONS Dental, Provider, DDS Social [...] 04/01/2025 2:15 PM EST Office Visit [facility] [address] [place] [address] Raza Boo documented as of this encounter Visit Diagnoses Not on filedocumented in this encounter Care Teams Application Architect Relationship Specialty Start Date End Date Jimmy Boo MD [address] [place] [address] PCP - General Internal Medicine 05/03/13 documented as of this encounter
--- OUTSIDE RECORDS SUMMARY | 2024-12-28 10:26 | XMS_ITS | Encounter Summary ---
Author Organization [employer] Address [address] [facility] 7 [place] [address] Care Team Providers Care Waterfront Director Name Role Phone Jimmy Boo MD Primary Care Provider [phone] Reason for Visit * Reason Comments Med Refill Encounter Details Date Type Department Care Team ([facility] Contact Info) Description 04/22/2022 Refill [facility] MED[facility] [address] [place], [place] [phone] Jimmy Boo MD [address] [place], [place] [phone] SOB (shortness of breath) Social History Tobacco [...] Upcoming Encounters Date Type Department Care Team ([facility] Contact Info) Description 04/01/2025 2:15 PM EST Office Visit [facility] ADULT DENTAL [address] [place] [address] Raza Boo documented as of this encounter Visit Diagnoses Diagnosis SOB (shortness of breath) Shortness of breath documented in this encounter Care Teams Waterfront Director Relationship Specialty Start Date End Date Jimmy Boo MD [address] [place] [address] PCP - General Internal Medicine 05/03/13 documented as of this encounter
--- OUTSIDE RECORDS SUMMARY | 2024-12-28 10:26 | XMS_ITS | Encounter Summary ---
Author Organization [employer] Address [address] [facility] 7t [place] [address] Care Team Providers Care Tuber Machine Operator Name Role Phone Jimmy Boo MD Primary Care Provider [phone] Reason for Visit * Reason Onset Date Comments Nurse Triage 07/02/2024 Encounter Details Date Type Department Care Team ([facility] st Contact Info) Description 07/02/2024 Telephone [facility] MEDICINE [address] [place] [address] Jimmy Boo MD [address] [place] [address] Nurse Triage Social History Tobacco Use Types [...] Pt had lumbar puncture on 06/14/24 at [facility] and has had some increased back pain since then. Pt denies redness, swelling at site but, is concerned as to the length of time having pain. ASK apt [facility] CHC today at 320pm. Pt agrees with [...] acuity questions The caller accepted this outcome. [phone] Pt had lumbar procedure on june 14. documented in this encounter Plan of Treatment Upcoming Encounters Date Type Department Care Team ([facility] st Contact Info) Description 04/01/2025 2:15 PM EST Office Visit [facility] ADULT DENTAL [address] [place] [address] Raza Boo documented as of this encounter Visit Diagnoses Not on filedocumented in this encounter Additional Health Concerns Assessment Noted Time PHQ-9 Depression Total Score: 8 06/05/19 25 2:12 PM EST documented as of this encounter Care Teams Tuber Machine Operator Relationship Specialty Start Date End Date Jimmy Boo MD [address] [place] [address] PCP - General Internal Medicine 05/03/13 documented as of this encounter
--- OUTSIDE RECORDS SUMMARY | 2024-12-28 10:26 | XMS_ITS | Encounter Summary ---
Author Organization [employer] Address [address] 7t [place] [address] Care Team Providers Care Assistant Professor Of Forestry Name Role Phone Jimmy Boo MD Primary Care Provider [phone] Reason for Visit * Reason Comments Med Refill Encounter Details Date Type Department Care Team ([facility] Contact Info) Description 11/03/[address] [facility] ADULT DENTAL [address] [place] [address] Luis Guzman DDS [address] [place] [address] Social History Tobacco Use Types Packs/Day Years [...] t he electric, gas, oil or water [employer] threatened to shut off services in your [...] Upcoming Encounters Date Type Department Care Team ([facility] st Contact Info) Description 04/01/2025 2:15 PM EST Office Visit [facility] ADULT DENTAL 505 [place] [address] Raza Boo documented as of this encounter Visit Diagnoses Not on filedocumented in this encounter Care Teams Assistant Professor Of Forestry Relationship Specialty Start Date End Date Jimmy Boo MD 505 [place] [address] PCP - General Internal Medicine 05/03/13 documented as of this encounter
--- OUTSIDE RECORDS SUMMARY | 2024-12-28 10:26 | XMS_ITS | Encounter Summary ---
Author Organization [employer] Address [address] 7t [place] [address] Care Team Providers Care Front Man Name Role Phone Jimmy Boo MD Primary Care Provider [phone] Reason for Visit * Reason Comments Med Refill Encounter Details Date Type Department Care Team ([facility] Contact Info) Description 12/02/2023 Refill [facility] CH[facility] ADULT DENTAL [address] [place] [address] Luis Guzman DDS [address] [place] [address] Social History Tobacco Use Types Packs/Day Years [...] Upcoming Encounters Date Type Department Care Team ([facility] st Contact Info) Description 04/01/2025 2:15 PM EST Office Visit [facility] ADULT D[facility]AL 505 [place] [address] Raza Boo documented as of this encounter Visit Diagnoses Not on filedocumented in this encounter Care Teams Front Man Relationship Specialty Start Date End Date Jimmy Boo MD [address] [place] [address] PCP - General Internal Medicine 05/03/13 documented as of this encounter
--- OUTSIDE RECORDS SUMMARY | 2024-12-28 10:26 | XMS_ITS | Encounter Summary ---
Author Organization [employer] Address [address] [facility] 7t [place] [address] Care Team Providers Care Director Risk Name Role Phone Jimmy Boo MD Primary Care Provider [phone] Encounter Details Date Type Department Care Team ([facility] Contact Info) Description 11/28/2023 Orders Only [facility] CHC MED & PEDS [address] [place], [place] [phone] Jimmy Boo MD 505 [place] [address] Social History Tobacco Use Types Packs/Day Years [...] Description 04/01/2025 2:15 PM EST Office Visit [facility] ADULT DENTAL [address] [place] [address] Raza Boo documented as of this encounter Visit Diagnoses Not on filedocumented in this encounter Care Teams Director Risk Relationship Specialty Start Date End Date Jimmy Boo MD [address] [place] [address] PCP - General Internal Medicine 05/03/13 documented as of this encounter
--- OUTSIDE RECORDS SUMMARY | 2024-12-28 10:26 | XMS_ITS | Encounter Summary ---
Author Organization [employer] [facility] Address [address] [facility] 7 [place] [address] Care Team Providers Care Docketing Specialist Name Role Phone Jimmy Boo MD Primary Care Provider [phone]- [phone] Encounter Details Date Type Department Care Team (Latest Contact Info) Description 03/14/[address] [facility] CONVERSIONS Dental, Provider, DDS Social History Tobacco [...] 2:15 PM EST Office Visit [facility] ADULT DENTAL 505 [place] [address] Raza Boo documented as of this encounter Visit Diagnoses Not on filedocumented in this encounter Care Teams Docketing Specialist Relationship Specialty Start Date End Date Jimmy Boo MD 505 [place] [address] PCP - General Internal Medicine 05/03/13 documented as of this encounter
--- OUTSIDE RECORDS SUMMARY | 2024-12-28 10:26 | XMS_ITS | Encounter Summary ---
Author Organization [employer] Address [address] [facility] 7t [place] [address] Care Team Providers Care Senior Biostatistician Name Role Phone Jimmy Boo MD Primary Care Provider [phone]- [phone] Reason for Visit * Reason Comments Med Refill Encounter Details Date Type Department Care Team ([facility] Contact Info) Description 03/16/2022 Refill [facility] MEDICINE [address] [place] [address] Jimmy Boo MD [address] [place], [place] [phone] Insomnia, unspecified Social History Tobacco Use Types [...] Upcoming Encounters Date Type Department Care Team ([facility] Contact Info) Description 04/01/2025 2:15 PM EST Office Visit [facility] CHC ADULT DENTAL 505 [place] [address] Raza Boo documented as of this encounter Visit Diagnoses Diagnosis Insomnia, unspecified documented in this encounter Care Teams Senior Biostatistician Relationship Specialty Start Date End Date Jimmy Boo MD [address] [place] [address] PCP - General Internal Medicine 05/03/13 documented as of this encounter
--- OUTSIDE RECORDS SUMMARY | 2024-12-28 10:26 | XMS_ITS | Encounter Summary ---
Author Organization [employer] Address [address] [facility] 7t [place] [address] Care Team Providers Care Physics Teacher Name Role Phone Jimmy Boo MD Primary Care Provider [phone] Reason for Visit * Reason Onset Date Comments Nurse Triage 10/24/2023 Encounter Details Date Type Department Care Team ([facility] st Contact Info) Description 10/24/[address] [facility] CH[facility] MED & PEDS [address] [place], [place] [phone] Jimmy Boo MD 505 [place] [address] Nurse Triage Social History Tobacco Use Types [...] past 12 months, has t he electric, [employer], oil or water [employer] threatened to shut off services in your [...] PCP. Please see notes, Please contact at [phone] * Telephone Encounter - Diane Garcia RN [...] a video call tomorrow when PCP opens [facility] schedule 10/25/23. Pt. Would prefer for RX [...] caller accepted this outcome Contact pt at [phone] documented in this encounter Plan of Treatment Upcoming Encounters Date Type Department Care Team (Late st Contact Info) Description 04/01/2025 2:15 PM EST Office Visit [facility] ADULT DENTAL [address] [place] [address] Raza Boo documented as of this encounter Visit Diagnoses Diagnosis Primary insomnia Persistent disorder of initiating or maintaining sleep documented in this encounter Care Teams Physics Teacher Relationship Specialty Start Date End Date Jimmy Boo MD [address] [place] [address] PCP - General Internal Medicine 05/03/13 documented as of this encounter
--- OUTSIDE RECORDS SUMMARY | 2024-12-28 10:26 | XMS_ITS | Encounter Summary ---
Author Organization [employer] Address [address] [facility] 7t [place] [address] Care Team Providers Care Engineering Surveyor Name Role Phone Jimmy Boo MD Primary Care Provider [phone] Reason for Visit * Reason Comments Med Refill Encounter Details Date Type Department Care Team ([facility] st Contact Info) Description 12/29/2023 Refill [facility] MEDICINE [address] [place] [address] Jimmy Boo MD [address] [place] [address] Primary insomnia Social History Tobacco Use Types [...] t he electric, gas, oil or water [employer] threatened to shut off services in your [...] 2:15 PM EST Office Visit [facility] ADULT DENTAL 505 [place] [address] Raza Boo documented as of this encounter Visit Diagnoses Diagnosis Primary insomnia Persistent disorder of initiating or maintaining sleep documented in this encounter Care Teams Engineering Surveyor Relationship Specialty Start Date End Date Jimmy Boo MD [address] [place] [address] PCP - General Internal Medicine 05/03/13 documented as of this encounter
--- OUTSIDE RECORDS SUMMARY | 2024-12-28 10:26 | XMS_ITS | Encounter Summary ---
Author Organization [employer] Address [address] [facility] 7t [place] [address] Care Team Providers Care Consulting Hr Professional Name Role Phone Jimmy Boo MD Primary Care Provider [phone] Encounter Details Date Type Department Care Team ([facility] st Contact Info) Description 10/24/[address] [facility] CHC MED & PEDS [address] [place], [place] [phone] Jimmy Boo MD 505 [place] [address] Herpes zoster without complication (Primary Dx) Social [...] t he electric, gas, oil or water [employer] threatened to shut off services in your [...] Description 04/01/2025 2:15 PM EST Office Visit [facility] ADULT DENTAL [address] [place] [address] Raza Boo documented as of this encounter Procedures Procedure Name Priority Date/Time Associated Diagnosis Comments XR FINGERS 2+ VIEWS RIGHT Routine 11/23/2023 11:55 AM EDT documented in this encounter Results * XR Fingers 2+ Views Right (11/23/2023 11:55 AM EDT) Anatomical Region Laterality Modality Upper Extremities, Fingers Right Radio graphic Imaging 11/23/2023 11:5 5 AM EDT Narrative 11/27/2023 2:15 PM EDT [address] [address] XRay Report Signed Patient: Lakisha Hearn MR#: [id number] : 1965 Acct:[id number] Age/Sex: 58 / F ADM Date: 11/23/23 Loc: [facility] Attending Dr: Jimmy Boo MD Ordering Physician: Jimmy Boo MD Date of Service: 11/23/23 Procedure(s): XR finger RT min 2V Accession Number(s): [id number] cc: Jimmy Boo MD EXAMINATION: XR FINGER, [...] unremarkable. 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 slightly progressed compared with February 2019 Electronically signed by: Kuldip Dill MD 11/27/2023 02:13 PM EDT RP Dictated By: Kuldip Dill MD Signed By: <Electronically signed by Kuldip Dill MD in OV> 11/27/23 1413 DD/ 1155 TD/TT: 11/23/23 1205 Manager Van: STEVE Procedure Note Donotuseinterpreter, Image - 11/27/[address] [address] XRay Report Signed Patient: Lakisha Hearn AMR#: [id number] : 1965Acct:[id number] Age/Sex: 58 / FADM Date: 11/23/23 Loc: [facility] Attending Dr: Jimmy Boo MD Ordering Physician: Jimym Boo MD Date of Service: 11/23/23 Procedure(s): XR finger RT min 2V Accession Number(s): [id number] cc: Jimmy Boo MD EXAMINATION: XR FINGER, [...] unremarkable. 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 slightly progressed compared with February 2019 Electronically signed by: Kuldip Dill MD 11/27/2023 02:13 PM EDT RP Dictated By: Kuldip Dill MD Signed By: <Electronically signed by Kuldip Dill MD inOV> 11/27/23 1413 DD/ 1155 TD/TT: 11/23/23 1205 Manager Van: STEVE Jimmy Boo MD IMG XR PROCEDURES Final Res ult documented in this encounter Visit Diagnoses Diagnosis Herpes zoster without complication- Primary documented in this encounter Care Teams Consulting Hr Professional Relationship Specialty Start Date End Date Jimmy Boo MD [address] [place] [address] PCP - General Internal Medicine 05/03/13 documented as of this encounter
--- OUTSIDE RECORDS SUMMARY | 2024-12-28 10:26 | XMS_ITS | Encounter Summary ---
Author Organization [employer] Address [address] [facility] 7t [place] [address] Care Team Providers Care Director Marketing Communications Name Role Phone Jimmy Boo MD Primary Care Provider [phone] Encounter Details Date Type Department Care Team ([facility] st Contact Info) Description 04/25/2024 Orders Only [facility] CHC MED & PEDS [address] [place], [place] [phone] Jimmy Boo MD [address] [place] [address] Primary insomnia Social History Tobacco Use Types [...] 2:15 PM EST Office Visit [facility] ADULT DENTAL 505 [place] [address] Raza Boo documented as of this encounter Visit Diagnoses Diagnosis Primary insomnia Persistent disorder of initiating or maintaining sleep documented in this encounter Care Teams Director Marketing Communications Relationship Specialty Start Date End Date Jimmy Boo MD [address] [place] [address] PCP - General Internal Medicine 05/03/13 documented as of this encounter
--- OUTSIDE RECORDS SUMMARY | 2024-12-28 10:27 | XMS_ITS | Encounter Summary ---
Author Organization [employer] Address [address] [facility] 7t [place] [address] Care Team Providers Care Oil Burner Journeyman Name Role Phone Jimmy Boo MD Primary Care Provider [phone] Reason for Visit * Reason Onset Date Comments Med Refill 07/13/2023 Encounter Details Date Type Department Care Team (Late Contact Info) Description 07/13/2023 Refill [facility] CHC ADULT DENTAL [address] [place] [address] Luis Guzman DDS [address] [place] [address] Social History Tobacco Use Types Packs/Day Years [...] Upcoming Encounters Date Type Department Care Team ([facility] Contact Info) Description 04/01/2025 2:15 PM EST Office Visit [facility] ADULT DENTAL 505 [place] [address] Raza Boo documented as of this encounter Visit Diagnoses Not on filedocumented in this encounter Care Teams Oil Burner Journeyman Relationship Specialty Start Date End Date Jimmy Boo MD [address] [place] [address] PCP - General Internal Medicine 05/03/13 documented as of this encounter
--- OUTSIDE RECORDS SUMMARY | 2024-12-28 10:27 | XMS_ITS | Encounter Summary ---
Author Organization [employer] [facility] Address [address] [place] [address] 7 [place] [address] Care Team Providers Care Manager Of Financial Reporting Name Role Phone Jimmy Boo MD Primary Care Provider [phone] Encounter Details Date Type Department Care Team (Late Contact Info) Description 05/16/2023 Abstract [facility] ADULT DENTAL [address] [place] [address] Mary Jane Massey DMD Social History Tobacco [...] [facility] [address] [place] [address] Raza Boo documented as of this encounter Visit Diagnoses Not on filedocumented in this encounter Care Teams Manager Of Financial Reporting Relationship Specialty Start Date End Date Jimmy Boo MD [address] [place] [address] PCP - General Internal Medicine 05/03/13 documented as of this encounter
--- OUTSIDE RECORDS SUMMARY | 2024-12-28 10:27 | XMS_ITS | Encounter Summary ---
Author Organization [employer] Address [address] [facility] 7 [place] [address] Care Team Providers Care Marshmallow Maker Name Role Phone Jimmy Boo MD Primary Care Provider [phone] Encounter Details Date Type Department Care Team ([facility] Contact Info) Description 07/07/2023 Orders Only [facility] MED & PEDS [address] [place], [place] [phone] Jimmy Boo MD 505 [place] [address] Diverticulosis of colon (Primary Dx) Social History [...] [facility] [address] [place] [address] Raza Boo Scheduled Orders Name Type Priority Associated Diagnoses Orde r Schedule Fecal Globin by Immunochemistry Lab Routine Diverticulosis of colon Expected: 07/07/2023 (Approximate), Expires: 07/06/2024 Urinalysis Complete Lab Routine Diverticulosis of colon Expected: 07/07/2023 (Approximate), Expires: 07/06/2024 documented as of this encounter Visit Diagnoses Diagnosis Diverticulosis of colon- Primary Diverticulosis of colon (without mention of hemorrhage) documented in this encounter Care Teams Marshmallow Maker Relationship Specialty Start Date End Date Jimmy Boo MD [address] [place] [address] PCP - General Internal Medicine 05/03/13 documented as of this encounter
--- OUTSIDE RECORDS SUMMARY | 2024-12-28 10:27 | XMS_ITS | Patient Health Record ---
Author Organization [facility] Address [address] [place] [address] Care Team Providers Care Architecture Intern Name Role Phone Jimmy Boo M.D. Primary Care Provider Un available Keyshawn Lopez Unavailable [phone] Allergies Allergen (clinical drug ingredient) Drug/Non Drug [...] Problem Status W/U Status Risk Notes Problem [id number] Encounter for screening for malignant neoplasm of colon (Z12.11) Active confirmed Problem Screening for malignant neoplasm of rectum (532030488) Encounter for screening for malignant neoplasm of rectum (Z12.12) Active confirmed Problem [id number] Family history o f colon cancer (Z80.0) Active confirmed Problem 21013104 Constipation, unspecified constipation type (K59.00) Active confirmed Problem Diverticulosis of colon (517922207) Diverticulosis of colon (K57.30) Active confirmed Plan Of Treatment Future Test Test Name Order Date COLONOSCOPY 12/19/2015 COLONOSCOPY 03/17/2022 Insurance Providers Payer Name Payer Address Payer Phone Subscriber Number Group Number Insured Name Patient Relationship to Insured Coverage Start Date Coverage End Date [facility] [address] [place] [phone] [id number] PATRICIA DOOLEY Self - patient is the insured Medical (General) History Medical History History ICD Code Epilepsy--off seizure meds Multiple sclerosis Vertigo Denies SD,DM,CVA,Lung disease,renal dise ase Hx of breast cancer 2011--ri ght--lumpectomy, XRT , chemo--sees Dr. Samuel at [facility] x 3 Neg. colonoscopy in 2005, 06/2011, and 2016 Surgical History Surgery Date(Month/Year) Urethral diverticulum Right arm surgery BTL Exploratory laparoscopy Ear surgery for tubes Shoulder surgery--right shoulder 09/2015 Right breast cancer --lumpectomy Bone removed from left thumb Carpal tunnel on the left Cystoscopy 02/2022
--- OUTSIDE RECORDS SUMMARY | 2024-12-28 10:27 | XMS_ITS | Encounter Summary ---
Author Organization [employer] Address [address] [place] [address] 7 [place] [address] Care Team Providers Care Senior Bi Architect Name Role Phone Jimmy Boo MD Primary Care Provider [phone] Reason for Visit * Reason Comments Med Refill Encounter Details Date Type Department Care Team ([facility] Contact Info) Description 06/23/2022 Refill [facility] MED & PEDS [address] [place] [address] Jimmy Boo MD [address] [place] [address] Primary insomnia Social History Tobacco Use Types [...] Upcoming Encounters Date Type Department Care Team ([facility] Contact Info) Description 04/01/2025 2:15 PM EST Office Visit [facility] ADULT DENTAL [address] [place] [address] Raza Boo documented as of this encounter Visit Diagnoses Diagnosis Primary insomnia Persistent disorder of initiating or maintaining sleep documented in this encounter Care Teams Senior Bi Architect Relationship Specialty Start Date End Date Jimmy Boo MD [address] [place] [address] PCP - General Internal Medicine 05/03/13 documented as of this encounter
--- OUTSIDE RECORDS SUMMARY | 2024-12-28 10:27 | XMS_ITS | Encounter Summary ---
Author Organization [employer] Address [address] [place] [address] 7 [place] [address] Care Team Providers Care Power Shovel Operator Helper Name Role Phone Jimmy Boo MD Primary Care Provider [phone] Reason for Visit * Reason Comments Med Refill Encounter Details Date Type Department Care Team ([facility] Contact Info) Description 06/22/2022 Refill [facility] MED & PEDS [address] [place], [place] [phone] Jimmy Boo MD [address] [place] [address] Primary insomnia Social History Tobacco Use Types [...] Upcoming Encounters Date Type Department Care Team ([facility] Contact Info) Description 04/01/2025 2:15 PM EST Office Visit [facility] ADULT DENTAL [address] [place] [address] Raza Boo documented as of this encounter Visit Diagnoses Diagnosis Primary insomnia Persistent disorder of initiating or maintaining sleep documented in this encounter Care Teams Power Shovel Operator Helper Relationship Specialty Start Date End Date Jimmy Boo MD [address] [place] [address] PCP - General Internal Medicine 05/03/13 documented as of this encounter
--- OUTSIDE RECORDS SUMMARY | 2024-12-28 10:27 | XMS_ITS | Encounter Summary ---
Author Organization [employer] Address [address] [place] [address] 7 [place] [address] Care Team Providers Care Mortgage Loan Closer Name Role Phone Jimmy Boo MD Primary Care Provider [phone] Encounter Details Date Type Department Care Team ([facility] Contact Info) Description 06/21/2023 Orders Only [facility] MED & PEDS [address] [place], [place] [phone] Jimmy Boo MD [address] [place], [place] [phone] Primary insomnia Social History Tobacco Use Types [...] Upcoming Encounters Date Type Department Care Team ([facility] Contact Info) Description 04/01/2025 2:15 PM EST Office Visit [facility] ADULT DENTAL [address] [place], [place] [phone] Raza Boo documented as of this encounter Visit Diagnoses Diagnosis Primary insomnia Persistent disorder of initiating or maintaining sleep documented in this encounter Care Teams Mortgage Loan Closer Relationship Specialty Start Date End Date Jimmy Boo MD [address] [place] [address] PCP - General Internal Medicine 05/03/13 documented as of this encounter
--- OUTSIDE RECORDS SUMMARY | 2024-12-28 10:27 | XMS_ITS | Encounter Summary ---
Author Organization [employer] Address [address] [place] [address] 7 [place] [address] Care Team Providers Care World History Teacher Name Role Phone Jimmy Boo MD Primary Care Provider [phone] Encounter Details Date Type Department Care Team ([facility] Contact Info) Description 03/02/2023 Abstract [facility] ADULT DENTAL [address] [place] [address] Zahira Harris DDS [address] [place], [place] [phone] Social History Tobacco Use Types Packs/Day Years [...] Department Care Team ([facility] Contact Info) Description 04/01/2025 2:15 PM EST Office Visit [facility] ADULT DENTAL [address] [place] [address] Raza Boo documented as of this encounter Visit Diagnoses Not on filedocumented in this encounter Care Teams World History Teacher Relationship Specialty Start Date End Date Jimmy Boo MD [address] [place], [place] [phone] PCP - General Internal Medicine 05/03/13 documented as of this encounter
--- OUTSIDE RECORDS SUMMARY | 2024-12-28 10:27 | XMS_ITS | Encounter Summary ---
Author Organization [employer] Address [address] [place] [address] 7 [place] [address] Care Team Providers Care Patent Solicitor Name Role Phone Jimmy Boo MD Primary Care Provider [phone] Encounter Details Date Type Department Care Team ([facility] Contact Info) Description 04/13/2023 Abstract [facility] ADULT DENTAL [address] [place] [address] Zahira Harris DDS [address] [place], [place] [phone] Social History Tobacco Use Types Packs/Day Years [...] [facility] Contact Info) Description 04/01/2025 2:15 PM EST Office Visit [facility] ADULT DENTAL [address] [place] [address] Raza Boo documented as of this encounter Visit Diagnoses Not on filedocumented in this encounter Care Teams Patent Solicitor Relationship Specialty Start Date End Date Jimmy Boo MD [address] [place], [place] [phone] PCP - General Internal Medicine 05/03/13 documented as of this encounter
--- OUTSIDE RECORDS SUMMARY | 2024-12-28 10:27 | XMS_ITS | Clinical Summary ---
Author Organization [address] [place] [address] Address [address] [place] [address] Phone Care Team Providers Care Legal Writing Professor Name Role Phone Jimmy Boo MD Primary Care Provider [phone] Allergies Active Allergy Reactions Criticality Noted Date [...] Team Description 10/30/2024 9:00 AM EDT Consult [facility] - [address] [place] [phone] Ton Prather MD Multiple sclerosis (CMS/HCC V24, CMS/HCC V28) (Primary Dx); Other fatigue; Gait abnormality from Last 3 Months Surgical History Surgery Date Site/Laterality Comments OTHER SURGICAL HISTORY PROCEDURE: ND EXC BARTHOLINS GLAND/CYST; COMMENT: Vulva lipoma resection 06/2018 TUBAL LIGATION PROCEDURE: HISTORICAL TUBAL LIGATION OTHER SURGICAL HISTORY PROCEDURE: ND CYSTOURETHROSCOPY W/INTERNAL URETHROTOMY; COMMENT: urethral diverticulum OTHER [...] (HCC) Foot swelling DX:Foot swelling Multiple sclerosis DX:Multiple s clerosis (HCC) Depression DX:Depression GERD (gastroesophageal reflu x disease) DX:GERD (gastroesophageal re flux disease) Asthma DX:Asthma Heart palpitations DX:Heart palp itations Mastodynia DX:Mastodynia History of breast cancer in female 11/25/2011 DX:History of breast cancer in female; COMMENT: Right IDC, pT1c N1a, ER/ND pos, Her2 neg, s/p partial mastectomy and [...] Description 01/23/2025 11:40 AM EDT Office Visit [facility] [address] [facility] [address] [place] [phone] Ton Prather MD [address] [place] [address] Health Maintenance Due Date Last Done Comments [...] Routine 10/30/2024 10:25 AM EDT Multiple sclerosis ([facility] V24, [facility] V28) VARICELLA ZOSTER ANTIBODY IGG Routine 10/30/2024 10:25 AM EDT Multiple sclerosis ([facility] V24, [facility] V28) NEUROMYELITIS OPTICA, [id number] Routine 10/30/2024 10:25 AM EDT Multiple sclerosis ([facility] V24, [facility] V28) MYELIN OLIGODENDROCYTE GLYCOPROTEIN ANTIBODY WITH REFLEX TO TITER Routine 10/30/2024 10:25 AM EDT Multiple sclerosis ([facility] V24, [facility] V28) SJOGRENS ANTIBODIES, SSA AND SSB Routine 10/30/2024 10:25 AM EDT Multiple sclerosis ([facility] V24, [facility] V28) RHEUMATOID FACTOR Routine 10/30/2024 10: 25 AM EDT Multiple sclerosis ([facility] V24, [facility] V28) MATY IFA WITH TITER AND PATTERN Routine 10/30/2024 10:25 AM EDT Multiple sclerosis ([facility] V24, [facility] V28) CBC AND DIFFERENTIAL Routine 10/30/2024 10:25 AM EDT Multiple sclerosis ([facility] V24, [facility] V28) CREATININE, SERUM Routine 10/30/2024 10: 25 AM EDT Multiple sclerosis ([facility] V24, [facility] V28) BUN Routine 10/30/2024 10:25 AM EDT Multiple sclerosis ([facility] V24, [facility] V28) BORRELIA BURGDORFERI ANTIBODY Routine 10/30/2024 10:25 AM EDT Multiple sclerosis ([facility] V24, [facility] V28) VITAMIN D 25 HYDROXY Routine 10/30/2024 10:25 AM EDT Multiple sclerosis ([facility] V24, [facility] V28) VITAMIN B12 Routine 10/30/2024 10:25 AM EDT Multiple sclerosis ([facility] V24, [facility] V28) PAP SMEAR Routine 05/10/2022 from Last 3 Months or Most Recently Relevant to Health Maintenance Results * Myelin oligodendrocyte glycoprotein antibody with reflex to titer (10/30/2024 10:25 AM EDT) Pathologist [facility] MOG Antibody, Cell-based IFA Negative Negative 11/02/2024 6:05 AM EDT [facility] Blood Venous blood specimen / Unknown Venipuncture / Unknown 10/30/2024 10:25 AM EDT 10/30/2024 10:25 AM EDT Narrative [facility] - 11/02/2024 6:05 AM EDT Test(s) [id number] Antibody, Cell-based IFA was developed and its performance characteristics determined by [facility]. It has not been cleared or approved by the Food and Drug Administration. Performed at: [facility] [id number] Associate Account Executive: Regine Drake MD, Phone: [phone] Ton Prather MD LAB BLOOD ORDERABLES Fin al Result [facility] * Sjogrens antibodies, SSA and SSB (10/30/2024 10:25 AM EDT) Pathologist [facility] Sjogren's SS-A (Ro) Ab Quant 1 <20 units LAB CHEMISTRY METHOD 11/03/2024 1:11 PM EDT [facility] Sjogren's SS-A (Ro) Ab Negative Negative LAB CHEMISTRY METHOD 11/03/2024 1:11 PM EDT [facility] Sjogren's SS-B (La) Ab Quant 1 <20 units LAB CHEMISTRY METHOD 11/03/2024 1:11 PM EDT [facility] Sjogren's SS-B (La) Ab Negative Negative LAB CHEMISTRY METHOD 11/03/2024 1:11 PM EDT [facility] Blood Venous blood specimen / Unknown Venipuncture / Unknown 10/30/2024 10:25 AM EDT 10/30/2024 10:25 AM EDT Ton Prather MD LAB BLOOD ORDERABLES Fin al Result Performing Organization Address City/[facility]/ZIP Co de Phone Number [facility] [address] [place] [address], * Neuromyelitis optica, [id number] (10/30/2024 10:25 AM EDT) NMO IgG Autoantibodies <1.5 0.0 - 3.0 U/mL 11/05/2024 3:05 PM EDT [facility] Comment: Negative: 0.0 - 3.0 Positive: >3.0 Blood Venous blood specimen / Unknown Venipuncture / Unknown 10/30/2024 10:25 AM EDT 10/30/2024 10:25 AM EDT Narrative [facility] - 11/05/2024 3:05 PM EDT Performed at: 01 - [facility] [id number] Associate Account Executive: Regine Drake MD, Phone: [phone] Ton Prather MD LAB BLOOD ORDERABLES Fin al Result [facility] * MATY IFA with titer and pattern (10/30/2024 10:25 AM EDT) MATY Negative Negative 10/31/2024 10:16 AM EDT [facility] Blood Venous blood specimen / Unknown Venipuncture / Unknown 10/30/2024 10:25 AM EDT 10/30/2024 10:25 AM EDT Ton Prather MD LAB BLOOD ORDERABLES Fin al Result [facility] [address] [place] [address], * CBC auto differential (10/30/2024 10:25 AM EDT) WBC 5.4 4.8 - 10.8 K/mcL LAB HEMETOLOGY METHOD 10/30/2024 2:22 PM EDT [facility] RBC 4.50 3.80 - 4.80 M/mcL LAB HEMETOLOGY METHOD 10/30/2024 2:22 PM EDT [facility] Hemoglobin 13.8 11.5 - 16.0 g/dL LAB HEMETOLOGY METHOD 10/30/2024 2:22 PM EDT [facility] Hematocrit 42.8 35.0 - 47.0 % LAB HEMETOLOGY METHOD 10/30/2024 2:22 PM EDT [facility] MCV 95.7 79.0 - 98.0 FL LAB HEMETOLOGY METHOD 10/30/2024 2:22 PM EDT [facility] MCH 30.9 27.0 - 32.0 pcg LAB HEMETOLOGY METHOD [facility]24 [facility] MCHC 32.2 32.0 - 37.0 g/dL LAB HEMETOLOGY METHOD 10/30/2024 2:22 PM [facility] RDW 12.7 11.0 - 15.0 % LAB HEMETOLOGY METHOD 10/30/2024 2:22 PM EDT [facility] Platelets 233 130 - 400 K/mcL LAB HEMETOLOGY METHOD 10/30[facility]2024 2[facility] MPV 10.2 7.0 - 11.0 FL LAB HEMETOLOGY METHOD 10/30/2024 2:22 PM [facility] NRBC 0.0 <1.0 % LAB HEMETOLOGY METHOD 10/30/2024 2:22 PM [facility] NRBC Absolute 0.00 <0.10 K/mcL LAB HEMETOLOGY METHOD 10/30/2024 2:22 PM [facility] Neutrophils Relative 60.7 % LAB HEMETOLOGY METHOD 10/30/2024 2:22 PM [facility] Lymphocytes Relative 24.7 % LAB HEMETOLOGY METHOD 10/30/2024 2:22 PM [facility] Monocytes Relative 11.8 % LAB HEMETOLOGY METHOD 10/30/2024 2:22 PM [facility] Eosinophils Relative 1.7 % LAB HEMETOLOGY METHOD 10/30/2024 2:22 PM [facility] Basophils Relative 0.7 % LAB HEMETOLOGY METHOD 10/30/2024 2:22 PM [facility] Immature Granulocytes Relative 0.4 % LAB HEMETOLOGY METHOD 10/30/2024 2:22 PM [facility] Neutrophils Absolute 3.30 1.50 - 7.00 K/mcL LAB HEMETOLOGY METHOD 10/30/2024 2:22 PM [facility] Lymphocytes Absolute 1.34 1.00 - 5.00 K/mcL LAB HEMETOLOGY METHOD 10/30/2024 2:22 PM [facility] Monocytes Absolute 0.64 0.20 - 1.00 K/mcL LAB HEMETOLOGY METHOD 10/30/2024 2:22 PM [facility] Eosinophils Absolute 0.09 0.00 - 0.50 K/mcL LAB HEMETOLOGY METHOD 10/30/2024 2:22 PM EDT [facility] Basophils Absolute 0.04 0.00 - 0.20 K/[facility] LAB HEMETOLOGY METHOD 10/30/2024 2:22 PM EDT [facility] Immature Granulocytes Absolute 0.02 0.00 - 0.03 K/[facility] LAB HEMETOLOGY METHOD 10/30/2024 2:22 PM EDT [facility] Blood Venous blood specimen / Unknown Venipuncture / Unknown 10/30/2024 10:25 AM EDT 10/30/2024 10:25 AM EDT us Ton Prather MD LAB BLOOD ORDERABLES Fin al Result Performing Organization Address [facility] de Phone Number [facility] [address] [place] [address], * Borrelia burgdorferi antibody (10/30/2024 10:25 AM EDT) [facility] Lyme Ab Negative Negative LAB CHEMISTRY METHOD 10/31/2024 9:29 AM EDT [facility] Comment: No laboratory evidence of infection [...] ORDERABLES Fin al Result Performing Organization Address City/[facility]/ZIP Co de Phone Number [facility] [address] [place] [address], * Creatinine (10/30/2024 10:25 AM EDT) Pathologist [facility] Creatinine 0.69 0.50 - 1.10 mg/dL LAB CHEMISTRY METHOD 10/30/2024 3:10 PM EDT [facility] eGFR 100 >=60 mL/min/1. 73m2 LAB CHEMISTRY METHOD 10/30/2024 3:10 PM EDT [facility] Comment:Calculation based on the Chronic Kidney Disease Epidemiology Collaboration (CKD-EPI) equation refit without adjustment for race. Blood Venous blood specimen / Unknown Venipuncture / Unknown 10/30/2024 10:25 AM EDT 10/30/2024 10:25 AM EDT us Ton Prather MD LAB BLOOD ORDERABLES Fin al Result Performing Organization Address City/[facility]/ZIP Co de Phone Number [facility] [address] [place] [address], * Vitamin D 25 hydroxy (10/30/2024 10:25 AM EDT) [facility] Vit D, 25-Hydroxy 33.3 30.0 - 80.0 ng/mL LAB CHEMISTRY METHOD 10/30/2024 4:28 PM EDT [facility] Blood Venous blood specimen / Unknown Venipuncture / Unknown 10/30/2024 10:25 AM EDT 10/30/2024 10:25 AM EDT us Ton Prather MD LAB BLOOD ORDERABLES Fin al Result Performing Organization Address City/[facility]/ZIP Co de Phone Number [facility] [address] [place] [address], * Rheumatoid factor (10/30/2024 10:25 AM EDT) [facility] Rheumatoid Factor <10.0 <15.0 I Unit/mL LAB CHEMISTRY METHOD 10/30/2024 3:10 PM EDT [facility] Blood Venous blood specimen / Unknown Venipuncture / Unknown 10/30/2024 10:25 AM EDT 10/30/2024 10:25 AM EDT us Ton Prather MD LAB BLOOD ORDERABLES Fin al Result Performing Organization Address [facility] de Phone Number [facility] [address] [place] [address], [place] [phone] * Varicella zoster antibody IgG (10/30/2024 10:25 AM EDT) Varicella IgG Positive Positive LAB CHEMISTRY METHOD 10/31/2024 9:28 AM EDT [facility] Varicella Zoster IgG 12.50 >=1.00 S/CO LAB CHEMISTRY METHOD 10/31/2024 9:28 AM EDT [facility] Blood Venous blood specimen / Unknown Venipuncture / Unknown 10/30/2024 10:25 AM EDT 10/30/2024 10:25 AM EDT Narrative [facility] - 10/31/2024 9:28 AM EDT Interpretation >= 1.00 S/CO is considered to be consistent with Immunity us Ton Prather MD LAB BLOOD ORDERABLES Fin al Result Performing Organization Address [facility] de Phone Number [facility] [address] [place] [address], [place] [phone] * BUN (10/30/2024 10:25 AM EDT) BUN 13 5 - 25 mg/dL LAB CHEMISTRY METHOD 10/30/2024 3:10 PM EDT [facility] Blood Venous blood specimen / Unknown Venipuncture / Unknown 10/30/2024 10:25 AM EDT 10/30/2024 10:25 AM EDT Ton Prather MD LAB BLOOD ORDERABLES Fin al Result [facility] [address] [place] [address], [place] [phone] * Vitamin B12 (10/30/2024 10:25 AM EDT) Vitamin B-12 565 250 - 900 pcg/mL LAB CHEMISTRY METHOD 10/30/2024 3:32 PM EDT [facility] Blood Venous blood specimen / Unknown Venipuncture / Unknown 10/30/2024 10:25 AM EDT 10/30/2024 10:25 AM EDT Ton Prather MD LAB BLOOD ORDERABLES Fin al Result Performing Organization Address City/[facility]/ZIP Co de Phone Number [facility] [address] [place] [address], [place] [phone] * Pap smear (05/10/2022) 05/10/2022 Narrative HISTORICAL TESTING LAB RESULTING AGENCY - 05/21/2022 11:11 AM EST [id number] THINPREP PAP, IMAGED: ATYPICAL SQUAMOUS CELLS OF UNDETERMINED SIGNIFICANCE (ASCUS) . BLOOD AND ABUNDANT ACUTE INFLAMMATORY CELLS ARE PRESENT. SALLY MAIN(ASCP) (CASE SCREENED 05 19 2022) PATRICIA ESPINOZA [...] Most Recently Relevant to Health Maintenance Insurance [facility] Member Subscriber Plan / Payer (Ef fective 2022-Present) Name:LAKISHA STEVENS Relation to Subscriber:Self Name:Lakisha Stevens Payer ID:[id number] Group ID:[id number] Type:Not on file Address: [place] [address] [address] [place] [id number] Care Teams Legal Writing Professor Relationship Specialty Start Date End Date Jimmy Boo MD [address] [place] [address] PCP - General Internal Medicine 11/23/19
--- OUTSIDE RECORDS SUMMARY | 2024-12-28 10:27 | XMS_ITS | Encounter Summary ---
Author Organization [employer] Address [address] [place] [address] 7 [place] [address] Care Team Providers Care Telecommunications Engineer Name Role Phone Jimmy Boo MD Primary Care Provider [phone] Reason for Visit * Reason Comments Med Refill Encounter Details Date Type Department Care Team ([facility] Contact Info) Description 06/24/2022 Refill [facility] MED & [facility]EDS [address] [place] [address] Jimmy Boo MD [address] [place] [address] Primary insomnia Social History Tobacco Use Types [...] 2:15 PM EST Office Visit [facility] ADULT D[facility] [address] [place] [address] Raza Boo documented as of this encounter Visit Diagnoses Diagnosis Primary insomnia Persistent disorder of initiating or maintaining sleep documented in this encounter Care Teams Telecommunications Engineer Relationship Specialty Start Date End Date Jimmy Boo MD [address] [place] [id number] PCP - General Internal Medicine 05/03/13 documented as of this encounter
--- OUTSIDE RECORDS SUMMARY | 2024-12-28 10:27 | XMS_ITS | Encounter Summary ---
Author Organization [employer] [facility] Address [address] [place] [address] 7 [place] [address] Care Team Providers Care External Auditor Name Role Phone Jimmy Boo MD Primary Care Provider [phone] Reason for Visit * Reason Onset Date Comments rct appt 02/17/2023 Encounter Details Date Type Department Care Team ([facility] Contact Info) Description 02/17/2023 Telephone [facility] ADULT DENTAL [address] [place] [address] Tricia Davis DDS rct appt Social History [...] Team ([facility] Contact Info) Description 04/01/2025 2:15 PM EST Office Visit [facility] ADULT DENTAL [address] [place] [address] Raza Boo documented as of this encounter Visit Diagnoses Not on filedocumented in this encounter Care Teams External Auditor Relationship Specialty Start Date End Date Jimmy Boo MD [address] [place] [phone] PCP - General Internal Medicine 05/03/13 documented as of this encounter
--- OUTSIDE RECORDS SUMMARY | 2024-12-28 10:27 | XMS_ITS | Encounter Summary ---
Author Organization [employer] Address [address] [facility] [address] [place] [address] Care Team Providers Care Family Support Coordinator Name Role Phone Jimmy Boo MD Primary Care Provider [phone] Encounter Details Date Type Department Care Team ([facility] Contact Info) Description 06/25/2022 Orders Only [facility] MED & PED[facility] [address] [place], [place] [phone] Gray Barnes MD [address] [place], [place] [phone] Primary insomnia; SOB (shortness of breath) Social [...] Department Care Team ([facility] Contact Info) Description 04/01/2025 2:15 PM EST Office Visit [facility] ADULT DENT[facility] [address] [place] [address] Raza Boo documented as of this encounter Visit Diagnoses Diagnosis Primary insomnia Persistent disorder of initiating or maintaining sleep SOB (shortness of breath) Shortness of breath documented in this encounter Care Teams Family Support Coordinator Relationship Specialty Start Date End Date Jimmy Boo MD [address] [place] [id number] PCP - General Internal Medicine 05/03/13 documented as of this encounter
--- OUTSIDE RECORDS SUMMARY | 2024-12-28 10:27 | XMS_ITS | Encounter Summary ---
Author Organization [email or web address] Address [address] [facility] 7 [place] [address] Care Team Providers Care Dtp Operator Name Role Phone Jimmy Boo MD Primary Care Provider [phone] Reason for Visit * Reason Onset Date Comments Medication Question 06/21/2022 Encounter Details Date Type Department Care Team ([facility] Contact Info) Description 06/21/2022 Telephone [facility] MED [facility] PEDS [address] [place], [place] [phone] Jimmy Boo MD [address] [place], [place] [phone] Medication Question Social History Tobacco Use Types [...] out. Pt requesting Rx be sent to [facility] pharmacy on [address] * Telephone Encounter - Sangeetha Glenys - 06/21/2022 2:27 PM EDT Tc from pt requesting for medication ibuprofen . States does not want the 800mg . Would like to know if she can get 600 mg instead . documented in this encounter Plan of Treatment Upcoming Encounters Date Type Department Care Team ([facility] st Contact Info) Description 04/01/2025 2:15 PM EST Office Visit [facility] ADULT DENTAL [address] [place] [address] Raza Boo documented as of this encounter Visit Diagnoses Diagnosis Primary insomnia Persistent disorder of initiating or maintaining sleep SOB (shortness of breath) Shortness of breath documented in this encounter Care Teams Dtp Operator Relationship Specialty Start Date End Date Jimmy Boo MD [address] [place] [address] PCP - General Internal Medicine 05/03/13 documented as of this encounter
--- OUTSIDE RECORDS SUMMARY | 2024-12-28 10:27 | XMS_ITS | Clinical Summary ---
Author Organization [employer] Address [address] [place] [address] 7t [place] [address] Care Team Providers Care Rope Tier Name Role Phone Jimmy Boo MD Primary Care Provider [phone] Allergies Active Allergy Reactions Criticality Noted Date [...] the morning. 06/24/19 21 Active sodium chloride ([place]) 0.65 % nasal spray Administer 2 sprays [...] 24 Active Sodium Fluoride 1.1 % cream Wendel teeth for 2 minutes, morning and night. [...] BY MOUTH EVERYDAY AT BEDTIME 30 tablet 12/25/19 25 Active zolpidem (Ambien) 10 MG tabletIndicat ions:Primary insomnia TAKE 1 TABLET BY MOUTH EVERYDAY AT BEDTIME 30 tablet 11/27/19 25 025 Discontinued(Re order (will not trigger [...] organization. Date Type Department Care Team Description 12/24/2024 Telephone [facility] ADULT DENTAL [address] [place] [address] Luis Guzman DDS scripted toothpaste 12/24/2024 Refill [facility] MEDICINE [address] [place] [address] Jimmy Boo MD Primary insomnia 12/19/2024 9:00 AM EDT Office Visit [facility]EDS [address] [place] [address] Jimmy Boo MD Right hand pain (Primary Dx); Subcutaneous nodule 12/19/2024 Travel 12/12/2024 Patient Outreach [facility] MEDICINE [address] [place] [address] Jimmy Boo MD Pre-visit Planning ([facility] screening completed on 05/18/24) 11/26/2024 Refill [facility] [address] [place] [address] Jimmy Boo MD Primary insomnia 10/23/2024 Refill [facility] [address] [place] [address] Jimmy Boo MD Primary insomnia 09/27/2024 3:00 PM EDT Office Visit [facility] ADULT DENTAL [address] [place] [address] Raza Boo Dental calculus (Primary Dx) from Last 3 Months Immunizations Immunization Administration [...] Description 04/01/2025 2:15 PM EST Office Visit [facility]ULT [facility] [address] [place] [address] Raza Boo Health Maintenance Due Date Last Done Comments CT Colonography 1965 FIT DNA/Cologuard 1965 FIT 1965 FOBT 1965 Sigmoidoscopy 1965 Hepatitis B Vaccines (1 of 3 - 19+ 3-dose series) 1984 Pneumococcal Vaccine: 50+ Years (2 of 2 - PCV) 11/26/2012 11/27/2011 Zoster Vaccines (2 of 3) 06/18/2016 04/23/2016 Cervical Cancer Screening 01/23/2024 HPV/Cotest 01/23/2024 01/22/2021, 08/2019, 08/15/2018 Pap Smear 01/23/2024 01/22/2021, 11/07/2019 Mammogram 01/28/2024 01/27/2023, 01/03, 11/16/2019, Additional history exists COVID-19 Vaccine (3 - 2024- season) 2024 12/18/2020, 11/27/2020 Influenza Vaccine (#1) 2024 DTaP/Tdap/Td Vaccines (1 - Tdap) 02/20/2025 02/18/2019 Postponed from 02/19/2019 (Patient Refused) Dental X-Ray: B[facility]ings 03/13/2025 03/12/20 24, 02/11/2023, 12/28/2022 Dental Oral Exam 03/30/2025 09/27/2024, [...] AM EDT Narrative 12/19/2024 10:24 AM EDT [place] [address] XRay Report Signed Patient: Lakisha Hearn MR#: [id number] : 1965 Acct:[id number] Age/Sex: 59 / F ADM Date: 12/19/24 Loc: [facility] Attending Dr: Jimmy Boo MD Ordering Physician: Jimmy Boo MD Date of Service: 12/19/24 Procedure(s): XR hand RT min 3V Accession Number(s): [id number] cc: Jimmy Boo MD Reason for Exam: [...] 12/19/24 1021 DD/ 1014 TD/TT: 12/19/24 1017 Applications Programmer Analyst: Procedure Note Donotuseinterpreter, Image - 12/19/[address] [address] XRay Report Signed Patient: Lakisha Hearn AMR#: [id number] : 1965Acct:[id number] Age/Sex: 59 / FADM Date: 12/19/24 Loc: HO.XRAY Attending Dr: Jimmy Boo MD Ordering Physician: Jimmy Boo MD Date of Service: 12/19/24 Procedure(s): XR hand RT min 3V Accession Number(s): [id number] cc: Jimmy Boo MD Reason for Exam: [...] 12/19/24 1021 DD/ 1014 TD/TT: 12/19/24 1017 Applications Programmer Analyst: us Jimmy Boo MD IMG XR PROCEDURES Edited Re sult - Final * Mammography (01/27/2023) Mammogram negative Anatomical Region Laterality Modality Other Narrative 01/27/2023 Bi rads -negative us Jimmy Boo MD HEALTH MAINTENANCE Final Re sult * Hepatitis C Antibody Reflex (11/09/2022 1:51 PM EDT) Hepatitis C Antibody Nonreactive Nonreactive [facility] Comment:Antibodies to HCV no t detected; does not exclude early acuteHCV infection. 11/09/2022 1:51 PM EDT 11/09/2022 5:49 PM EDT Venecia Butcher [facility] BLOOD ORDERABLES Rach l Result Performing Organization Address [facility] Co de Phone Number [facility] [address] [place] [phone] * HIV Ab/Ag ([facility]) (11/09/2022 1:51 PM EDT) HIV AB/AG Nonreactive Nonreactive [facility] Comment:HIV-1 p24 Ag and/or HIV-1/HIV-2 Ab not detected.A test result that is nonreactive does not exclude thepossibility of exposure to or infection with HIV-1 and/orHIV-2. Nonreactive results in this assay for individualswith prior exposure to HIV-1 and/or HIV-2 may be due toantigen and antibody levels that are below the limit ofdetection of this assay.The [employer] Outdoor Adventure Instructor HIV Ag/Ab Combo assay result andsupplemental assay results should be interpreted inconjunction with the patient's clinical presentation,history and other laboratory results. If the results areinconsistent with clinical evidence, additional testing issuggested to confirm the result. 11/09/2022 1:51 PM EDT 11/09/2022 5:49 PM EDT Venecia Butcher [facility] BLOOD ORDERABLES Rach l Result Performing Organization Address [facility]/ZIP Co de Phone Number [facility] [address] [place] [address] [phone] * Hm Colonoscopy (06/04/2022) Colonoscopy Normal Normal 06/04/2022 Jacey Donnelly - 06/04/2022 2:23 PM EST Recommended 5 year follow up due to family hx of cancer ( see scanned report ) us Historical Provider HEALTH MAINTENANCE Final Result * THINPREP TIS PAP AND HPV mRNA E6/E7 REFLEX HPV 16,18/45 (01/22/2021 11:53 AM EDT) Clinical Information: None given [facility] COMMENT SEE COMMENT [facility]OUNDAT[facility] [...] evaluated with computer assisted technology. [facility] Supervising Fire Marshal: SEE COMMENT [facility] Comment: DCR, CT(ASCP) CT screening location: [place] [address] HPV nRNA E6/E7 Not Detected Not Detected [facility] Comment: Methodology: Tractor Sweeper Driver-Mediated Amplification This assay detects E6/E7 viral messenger RNA (mRNA) from 14 high-risk HPV types (16,18,31,33,35,39,45,51,52,56,58,59,66,68). The analytical performance characteristics of this assay have been determined by [employer]. The modifications have not been cleared or approved by the FDA. This assay has been validated pursuant to the CLIA regulations and is used for clinical purposes. For additional information, please refer to http://[email or web address].Elastra/faq/DIS919t0 (This link if provided for information/ educational purposes only.) Interpretation/Res ult: SEE COMMENT [facility] Comment: Negative for intraepithelial lesion or malignancy. Atrophic pattern; predominantly parabasal cells LMP: NONE [facility]IVEN [facility] Prev. BX: NONE [facility]IV[facility] Prev. PAP: LEDA HPV+ 2020 NEG COLPO [facility] SOURCE: None given [facility] Statement Of Adequacy: SATISFACTORY FOR EVALUATION [facility] 01/22/2021 11:5 3 AM EDT Venecia Butcher CNM LAB PATHOLOGY ORDERABLES Final Result [facility] [address] [place] [address], from Last 3 Months or Most Recently Relevant to Health Maintenance Insurance [facility] [address] [facility] [address] [place] [address] Care Teams Rope Tier Relationship Specialty Start Date End Date Jimmy Boo MD [address] [place] [phone] PCP - General Internal Medicine 05/03/13
--- OUTSIDE RECORDS SUMMARY | 2024-12-28 10:27 | XMS_ITS | Encounter Summary ---
Author Organization [employer] Address [address] [facility] 7t [place] [address] Care Team Providers Care Blog Writer Name Role Phone Jimmy Boo MD Primary Care Provider [phone] Reason for Visit * Reason Onset Date Comments scripted toothpaste 12/24/2024 Encounter Details Date Type Department Care Team ([facility] Contact Info) Description 12/24/2024 Telephone [facility] ADULT DENTAL [address] [place] [address] Luis Guzman DDS [address] [place] [address] scripted toothpaste Social History Tobacco Use Types Packs/Day [...] * Telephone Encounter - Zoey Geronimo - 12/24/2024 11:18 AM EDT Patient called in for new script for toothpaste to be sent into pharmacy. Has already picked up theregular script as well as thee refills. documented in this encounter Plan of Treatment Upcoming Encounters Date Type Department Care Team (Late st Contact Info) Description 04/01/2025 2:15 PM EST Office Visit [facility] ADULT DENTAL [address] [place] [address] Raza Boo documented as of this encounter Visit Diagnoses Not on filedocumented in this encounter Additional Health Concerns Assessment Noted Time PHQ-9 Depression Total Score: 8 06/05/19 25 2:12 PM EST documented as of this encounter Care Teams Blog Writer Relationship Specialty Start Date End Date Jimmy Boo MD [address] [place] [address] PCP - General Internal Medicine 05/03/13 documented as of this encounter
--- OUTSIDE RECORDS SUMMARY | 2024-12-28 10:27 | XMS_ITS | Encounter Summary ---
Author Organization [employer] Address [address] [place] [address] 7 [place] [address] Care Team Providers Care Molding And Trim Installer Name Role Phone Jimmy Boo MD Primary Care Provider [phone] Reason for Visit * Reason Comments Med Refill Encounter Details Date Type Department Care Team ([facility] Contact Info) Description 06/19/2022 Refill [facility] & [facility]ED[facility] [address] [place] [address] Jimmy Boo MD [address] [place] [address] Primary insomnia Social History Tobacco Use Types [...] Description 04/01/2025 2:15 PM EST Office Visit [facility] ADULT DENTAL [address] [place] [address] Raza Boo documented as of this encounter Visit Diagnoses Diagnosis Primary insomnia Persistent disorder of initiating or maintaining sleep documented in this encounter Care Teams Molding And Trim Installer Relationship Specialty Start Date End Date Jimmy Boo MD [address] [place] [address] PCP - General Internal Medicine 05/03/13 documented as of this encounter
--- OUTSIDE RECORDS SUMMARY | 2024-12-28 10:27 | XMS_ITS | Encounter Summary ---
Author Organization [employer] Address [address] [facility] [address] 7t [place] [address] Care Team Providers Care Carry Out Clerk And Shelf Stocker Name Role Phone Jimmy Boo MD Primary Care Provider [phone] Reason for Visit * Reason Comments Med Refill Encounter Details Date Type Department Care Team ([facility] Contact Info) Description 07/27/2024 Refill [facility] ADULT DENTAL [address] [place] [address] Luis Guzman DDS [address] [place] [address] Social History Tobacco Use Types Packs/Day Years [...] Description 04/01/2025 2:15 PM EST Office Visit [facility] ADULT DENTAL [address] [place] [address] Raza Boo documented as of this encounter Visit Diagnoses Not on filedocumented in this encounter Additional Health Concerns Assessment Noted Time PHQ-9 Depression Total Score: 8 06/05/19 25 2:12 PM EST documented as of this encounter Care Teams Carry Out Clerk And Shelf Stocker Relationship Specialty Start Date End Date Jimmy Boo MD [address] [place] [address] PCP - General Internal Medicine 05/03/13 documented as of this encounter
--- OUTSIDE RECORDS SUMMARY | 2024-12-28 10:27 | XMS_ITS | Encounter Summary ---
Author Organization [employer] Address [address] [facility] [address] 7t [place] [address] Care Team Providers Care Judicial Clerk Name Role Phone Jimmy Boo MD Primary Care Provider [phone] Encounter Details Date Type Department Care Team ([facility] Contact Info) Description 08/30/2023 Orders Only [facility] MED & PEDS [address] [place], [place] [phone] ProviderYnes MD Social History Tobacco Use Types [...] Description 04/01/2025 2:15 PM EST Office Visit [facility] ADULT DENTAL [address] [place] [address] Raza Boo documented as of this encounter [...] on filedocumented in this encounter Care Teams Judicial Clerk Relationship Specialty Start Date End Date Jimmy Boo MD [address] [place] [address] PCP - General Internal Medicine 05/03/13 documented as of this encounter
--- OUTSIDE RECORDS SUMMARY | 2024-12-28 10:27 | XMS_ITS | Encounter Summary ---
Author Organization [employer] Address [address] [facility] 7t [place] [address] Care Team Providers Care Community Health Program Representative Name Role Phone Jimmy Boo MD Primary Care Provider [phone] Reason for Visit * Reason Onset Date Comments Med Refill 12/24/2024 Encounter Details Date Type Department Care Team (Late st Contact Info) Description 12/24/2024 Refill [facility] MEDICINE [address] [place] [address] Jimmy Boo MD [address] [place] [phone] Primary insomnia Social History Tobacco Use Types [...] encounter Miscellaneous Notes * Telephone Encounter - Jamia Garcia LPN - 12/24/2024 11:14 AM EDT Pnp ck on 12.24.24 and last seen 12.19.24 * Telephone Encounter - Ismael Byers - 12/24/2024 11:11 AM EDT TC from pt requesting medication refill. Medications needing refill : zolpidem (Ambien) 10 MG tablet To be sent to: [facility]/pharmacy #[id number] [place] - [address] documented in this encounter Plan of Treatment Upcoming Encounters Date Type Department Care Team (Late st Contact Info) Description 04/01/2025 2:15 PM EST Office Visit [facility] ADULT DENTAL [address] [place] [address] Raza Boo documented as of this encounter Visit Diagnoses Diagnosis Primary insomnia Persistent disorder of initiating or maintaining sleep documented in this encounter Additional Health Concerns Assessment Noted Time PHQ-9 Depression Total Score: 8 06/05/19 25 2:12 PM EST documented as of this encounter Care Teams Community Health Program Representative Relationship Specialty Start Date End Date Jimmy Boo MD [address] [place] [address] PCP - General Internal Medicine 05/03/13 documented as of this encounter
--- OUTSIDE RECORDS SUMMARY | 2024-12-28 10:27 | XMS_ITS | Encounter Summary ---
Author Organization [employer] Address [address] [facility] 7t [place] [address] Care Team Providers Care Landscape Architect And Planner Name Role Phone Jimmy Boo MD Primary Care Provider [phone] Reason for Visit * Reason Onset Date Comments Dr. Guzman refill Sodium Flouride 5000 cream too thpaste 07/12/2024 Encounter Details Date Type Department Care Team ([facility] Contact Info) Description 07/12/2024 Telephone [facility] ADULT DENTAL [address] [place] [address] Luis Guzman DDS [address] [place] [address] Dr. Guzman refill Sodium Flouride 5000 cream [...] 04/01/2025 2:15 PM EST Office Visit [facility] ADULT DENT[facility] [address] [place] [address] Raza Boo documented as of this encounter Visit Diagnoses Not on filedocumented in this encounter Additional Health Concerns Assessment Noted Time PHQ-9 Depression Total Score: 8 06/05/19 25 2:12 PM EST documented as of this encounter Care Teams Landscape Architect And Planner Relationship Specialty Start Date End Date Jimmy Boo MD [address] [place] [address] PCP - General Internal Medicine 05/03/13 documented as of this encounter
--- OUTSIDE RECORDS SUMMARY | 2024-12-28 10:27 | XMS_ITS | Encounter Summary ---
Author Organization [email or web address] Address [address] [facility] [address] 7t [place] [address] Care Team Providers Care Sand Caster Apprentice Name Role Phone Jimmy Boo MD Primary Care Provider [phone] Reason for Visit * Reason Comments Med Refill Encounter Details Date Type Department Care Team ([facility] Contact Info) Description 08/27/2023 Refill [facility] ADULT DENTAL [address] [place], [place] [phone] Mary Jane Massey DMD Social History Tobacco [...] PM EST Office Visit [facility] ADULT DENTAL [address] [place] [address] Raza Boo documented as of this encounter Visit Diagnoses Not on filedocumented in this encounter Care Teams Sand Caster Apprentice Relationship Specialty Start Date End Date Jimmy Boo MD [address] [place] [address] PCP - General Internal Medicine 05/03/13 documented as of this encounter
--- OUTSIDE RECORDS SUMMARY | 2024-12-28 10:27 | XMS_ITS | Encounter Summary ---
Author Organization [employer] Address [address] [place] [address] 7 [place] [address] Care Team Providers Care Airport Utility Worker Name Role Phone Jimmy Boo MD Primary Care Provider [phone] Reason for Referral * Consultation (Routine) - Closed Specialty Diagnoses / Procedures Referred By Contac t Referred To Contact Neurology Diagnoses Chronic tension-type headache, not intractable Jimmy Boo MD [address] [place] [address] Phone: tel: fax: Rory Garber MD [address] [place] [address] [place] [address] Phone: tel: fax: Referral ID Status Reason Start Date Expiration Date V isits Requested Visits Authorized [id number] Closed Specialty Services Required 03/18/2024 03/18/2025 1 1 Encounter Details Date Type Department Care Team (Late st Contact Info) Description 03/18/2024 Orders Only [facility] MED & PEDS [address] [place], [place] [phone] Jimmy Boo MD [address] [place], [place] [phone] Chronic tension-type headache, not intractable (Primary Dx) [...] 2:15 PM EST Office Visit [facility] ADULT DENTAL [address] [place] [address] Raza Boo Scheduled Referrals Name Type Priority Associated Diagnoses Orde r Schedule Referral to Neurology Outpatient Referral Routine Chronic tension-type headache, not intractable Expected: 03/18/2024 (Approximate), Expires: 03/18/2025 documented as of this encounter Visit Diagnoses Diagnosis Chronic tension-type headache, not intractable- Primary Chronic tension type headache documented in this encounter Care Teams Airport Utility Worker Relationship Specialty Start Date End Date Jimmy Boo MD [address] [place] [address] PCP - General Internal Medicine 05/03/13 documented as of this encounter
--- OUTSIDE RECORDS SUMMARY | 2024-12-28 10:27 | XMS_ITS | Encounter Summary ---
Author Organization [employer] Address [address] [facility] [facility] [address] 7t [place] [address] Care Team Providers Care Visual Associate Name Role Phone Jimmy Boo MD Primary Care Provider [phone] Reason for Visit * Reason Comments Med Refill Encounter Details Date Type Department Care Team ([facility] Contact Info) Description 10/03/2023 Refill [facility] ADULT DENTAL [address] [place] [address] Mary Jane Massey DMD Social History Tobacco [...] Description 04/01/2025 2:15 PM EST Office Visit [facility] ADULT DENTAL [address] [place] [address] Raza Boo documented as of this encounter Visit Diagnoses Not on filedocumented in this encounter Care Teams Visual Associate Relationship Specialty Start Date End Date Jimmy Boo MD [address] [place] [address] PCP - General Internal Medicine 05/03/13 documented as of this encounter
--- OUTSIDE RECORDS SUMMARY | 2024-12-28 10:27 | XMS_ITS | Encounter Summary ---
Author Organization [employer] Address [address] [facility] 7 [place] [address] Care Team Providers Care Security Management Specialist Name Role Phone Jimmy Boo MD Primary Care Provider [phone] Encounter Details Date Type Department Care Team ([facility] Contact Info) Description 08/17/2022 Abstract [facility] MED & PEDS [address] [place], [place] [phone] Jimmy Boo MD [address] [place] [address] Social History Tobacco Use Types Packs/Day Years [...] Upcoming Encounters Date Type Department Care Team ([facility] Contact Info) Description 04/01/2025 2:15 PM EST Office Visit [facility] ADULT DENTAL [address] [place] [address] Raza Boo documented as of this encounter [...] EDT Recommended 5 year follow up ( [facility] us Historical Provider HEALTH MAINTENANCE Final Result documented in this encounter Visit Diagnoses Not on filedocumented in this encounter Care Teams Security Management Specialist Relationship Specialty Start Date End Date Jimmy Boo MD [address] [place] [address] PCP - General Internal Medicine 05/03/13 documented as of this encounter
--- OUTSIDE RECORDS SUMMARY | 2024-12-28 10:28 | XMS_ITS | Encounter Summary ---
Author Organization [employer] Address [address] [facility] 7t [place] [address] Care Team Providers Care Legal Records Manager Name Role Phone Jimmy Boo MD Primary Care Provider [phone] Reason for Visit * Reason Onset Date Comments case back from lab?? 10/19/2022 Encounter Details Date Type Department Care Team ([facility] Contact Info) Description 10/19/2022 Telephone [facility] ADULT DENTAL [address] [place] [address] Luis Guzman, DDS [address] [place] [address] case back from lab?? Social History Tobacco [...] Upcoming Encounters Date Type Department Care Team ([facility] Contact Info) Description 04/01/2025 2:15 PM EST Office Visit [facility] ADULT DENTAL [address] [place] [address] Raza Boo documented as of this encounter Visit Diagnoses Not on filedocumented in this encounter Care Teams Legal Records Manager Relationship Specialty Start Date End Date Jimmy Boo MD [address] [place] [address] PCP - General Internal Medicine 05/03/13 documented as of this encounter
== END 2024-12-28 09:32 | disposition home or self-care (01) ==
LOC: HO.US 09:31
PROVIDERS: PCP Internal Medicine; Visit Provider Internal Medicine
DX: R22.9 Localized swelling, mass and lump, unspecified (principal)
CPT/HCPCS: 76857

== ENCOUNTER → 2024-12-28 09:36 | Outpatient (BNV) | payer OTHER, SELFPAY | PROVIDERS: PCP Internal Medicine; Visit Provider Radiology Diagnostic Radiology | DX: N76.89 Other specified inflammation of vagina and vulva (principal) | CPT/HCPCS: 76857 ==

== ENCOUNTER 2025-01-11 12:41 | Emergency (ER) | payer OTHER, SELFPAY ==
--- NOTE | ~2025-01-11 | CT_ITS ---
EXAMINATION: CT ABDOMEN PELVIS WITHOUT IV CONTRAST HISTORY: RLQ abd pain, diarrhea COMPARISON: Previous CT of the abdomen and pelvis April 2023 and abdominal MRI January 2020 TECHNIQUE: CT scan of the abdomen and pelvis was performed without contrast using standard departmental protocol. Coronal and sagittal reformatted images were generated and reviewed. This CT exam was performed with one or more of the following dose reduction techniques: automated exposure control, adjustment of the mA and/or kV according to patient size, use of iterative reconstruction technique. DLP: 330 mGy-cm FINDINGS: LOWER CHEST: The visualized lung bases are clear. There is no pleural effusion. CARDIOVASCULATURE: The heart is normal in size. There is no pericardial effusion. LIVER: Small hypodensity in the right lobe segment 7 axial image 14 and left lobe segment 3 axial image 17 series 3. These are similar to prior exams and found to represent small cysts on liver MRI. Stable 8 mm low-attenuation lesion in the left lobe axial image 17 series 3. This was found to represent a hemangioma on liver MRI. Liver otherwise unremarkable. GALLBLADDER / BILE DUCTS: The gallbladder is unremarkable. There is no intra or extrahepatic biliary ductal dilatation. SPLEEN: The spleen is normal in size and has an unremarkable unenhanced appearance. PANCREAS: The pancreas has an unremarkable unenhanced appearance. ADRENAL GLANDS: Unremarkable. KIDNEYS/RETROPERITONEUM: No renal calculi are identified. There is no hydronephrosis. LYMPH NODES: No retroperitoneal lymphadenopathy is identified in the abdomen or pelvis. VASCULATURE: The abdominal aorta is normal in caliber. MESENTERY/PERITONEUM: No free fluid. No masses. There is no free intraperitoneal gas. STOMACH: Normal SMALL BOWEL: The small bowel is normal in caliber. COLON: The colon is unremarkable. APPENDIX: Normal. URINARY BLADDER/PELVIC ORGANS: The urinary bladder is unremarkable. No pelvic mass. BONES / SOFT TISSUES: No suspicious bony or soft tissue abnormalities. CT/CT abdomen pelvis wo IV con IMPRESSION: No cause of right lower quadrant pain seen. The appendix is normal. Stable low-attenuation liver lesions from prior exams. Electronically signed by: Samira Clemente MD 01/11/2025 05:07 PM EDT
[2025-01-11 13:02] VITALS: BP 132/64; PULSE 91; RESP 18; TEMP 37; O2SAT 100; BMI 17.4
--- NOTE | 2025-01-11 13:03 | ED_ITS ---
HPI - Abdominal Pain General Chief Complaint: Abdominal Pain Stated Complaint: R side pain Time Seen by Provider: 01/11/25 15:36 Source: patient, RN notes reviewed and old records reviewed Mode of arrival: ambulatory History of Present Illness ED Provider: Ghada Chen PA-C HPI narrative: 59-year-old female with a past medical history of breast CA, hypothyroid, MS, seizures, asthma, presenting to the ED complaining of RLQ abdominal pain x5 days. States patient initially started intermittent however has become more constant. Admits to associated zamorano diarrhea. Denies fever, chills, nausea, vomiting, dysuria/hematuria, vaginal bleeding/discharge. Denies recent antibiotic use. Related Data Home Medications ?Medication ?Instructions ?Recorded ?Confirmed zolpidem 5 mg tablet 5 mg PO BEDTIME PRN Insomnia 11/10/20 05/01/24 duloxetine 20 mg capsule,delayed 20 mg PO QAM 05/01/24 05/01/24 release sprinkle ibuprofen 800 mg tablet 800 mg PO Q8H PRN Pain, Mode rate 05/01/24 05/01/24 Allergies Allergy/AdvReac Type Severity Reaction Status Date / Time Iodinated Contrast Media (IV Allergy Severe (ULTRAVIST) Verified 01/11/25 13:02 CONTRAST) TINGLING OF LIPS AND SWELLING LIPS AND EYES adhesive tape (ADHESIVE TAPE) Allergy Intermediate BLISTERS Verified 01/11/25 13:02 tamoxifen (TAMOXIFEN) Allergy Mild GI UPSET Verified 01/11/25 13:02 Sulfa (Sulfonamide Allergy Unknown UNKNOWN Verified 01/11/25 13:02 Antibiotics) (SULFA (SULFONAMIDE ANTIBIOTICS)) bee pollen (bee stings) Allergy Swelling Verified 01/11/25 13:02 Review of Systems Review of Systems Yes all other systems are reviewed and are negative Constitutional: Reports as per HPI [facility] Past Medical History Attestation statement: The following information was validated with the patient. Source: old records reviewed Medical History Breast cancer History of right breast cancer Hypothyroid Multiple sclerosis Seizure Dyspnea on exertion Palpitations Asthma Subcutaneous mass Interstitial cystitis Surgical History Hx of elbow surgery Hx of rotator cuff surgery History of cystoscopy History of excision of mass (06/07/18) History of colonoscopy (06/2016) History of lumpectomy of right breast History of right breast biopsy History of tubal ligation History of ear surgery Family History Family History Mother Colon cancer Father Bone cancer Lung cancer Brother Cancer of unknown origin Sister Leaky heart valve Brother CHF (congestive heart failure) Social History Social History Patient Tobacco Use Status: Former Tobacco user Tobacco use type: Cigarette Advance Directives Date on File: 09/13/14 Current occupational status: disabled Current occupation: rt hand Physical Exam ED Vital Signs: Vital Signs - 24 hr 01/11/25 13:02 01/11/25 16:41 Temperature 98.6 F 97.8 F Pulse Rate 91 64 Respiratory Rate 18 16 Blood Pressure 132/64 123/76 Pulse Oximetry 100 99 Oxygen Delivery Method Room Air Room Air BMI result Body Mass Index 17.4 Const General: cooperative, healthy appearing and no acute distress Orientation/consciousness: patient oriented x3 Limitations: no limitations HENMT Head: Yes normal to inspection and Yes atraumatic Ears: hearing grossly normal bilaterally General nose exam: Normal external nose present Face and sinus: Yes normal facial exam Eyes General: appearance normal, both eyes and all related structures EOM: EOMs intact bilaterally Neck Neck: Yes normal visual inspection and Yes no meningeal signs Resp Effort & Inspection: normal respiratory effort and no respiratory distress Auscultation: clear to auscultation bilaterally Cardio Rate: regular rate Heart sounds: S1 normal heart sound present and S2 normal heart sound present GI Inspection: Yes normal to inspection Palpation (GI): Soft to palpation, Tenderness to palpation present (GI) in the RLQ; with no rebound tenderness, no guarding and not rigid General: Yes no CVA tenderness Back/Spine/Pelvis Back: no CVA tenderness Skin Rashes: no rashes Wounds: no wounds Neuro General: patient oriented x3, tone normal and no meningeal signs Cranial nerves: Yes CN's II-XII intact bilaterally Gait exam (Neuro): Normal gait present Extrem General: Yes normal to inspection Course Course Course Narrative: This is an RME: Additional HPI, ROS, PE not included below will be deferred to primary provider. RME assessment and note performed by: Edith Stone PA-C This is a [id number]-mct-female, with a hx of MS, seizures, interstitial cystitis, right breast cancer - diagnosed in 2012 went through chemotherapy and radiation, who presents to the ER with complaints of right lower abdominal pain x 5-7 days. No recent antibiotic use. Plan: labs, further ER eval needed -1710--no leukocytosis. Labs otherwise reassuring CT abdomen pelvis wo IV con IMPRESSION: No cause of right lower quadrant pain seen. The appendix is normal. Stable low-attenuation liver lesions from prior exams. > on re-evaluation patient reports continued discomfort however Abdomen is soft and nontender. Patient had pelvic ultrasound on 12/29/2024 Impression: Focal possible inflammatory process in the right labia rather than underlying mass which can not be entirely excluded. Clinical correlation is strongly advised. Contrast-enhanced MRI may be of further diagnostic value. >> external pelvic exam performed. Small area of induration noted to right labia however no overlying erythema. No warmth. Nontender. No fluctuance. No streaking -discussed with patient that she needs follow up with PCP, Gastroenterology and interventional radiology technologist. She verbalized understanding Results discussed with patient including worrisome signs and symptoms and strict return precautions, and when to return to the emergency department. They verbalized understanding and feel safe for discharge at this time. Medical Decision Making Medical Decision Making [facility] Narrative: 59-year-old female with a past medical history of breast CA, hypothyroid, MS, seizures, asthma, presenting to the ED complaining of RLQ abdominal pain x5 days. On exam vital signs stable, NAD, nontoxic appearing, abdomen is soft with mild RLQ tenderness, no rebound or guarding, no CVAT. Concern for appendicitis vs colitis vs ? Renal stone. Lower suspicion for UTI/pyelo or pancreatitis/cholecystitis at this time. Lower suspicion for SBO. Plan: Labs, UA, stool studies, CT AP, IVF, pain control, re-evaluate Please refer to course for remaining clinical decision making, interpretation of labs/imaging results, and discussions with consultants and/or family members. Differential Diagnosis Differential Diagnoses: The differential diagnosis associated with the presentation includes As above Admission/Observation Consideration of admission/observation: Escalation of care including admission/observation considered Lab Data [facility] Lab Attestation statement: I reviewed the patient's lab results. 01/11/25 13:42 01/11/25 13:42 Labs: Lab Results 01/11/25 01/11/25 Range/Units 13:42 13:55 WBC 5.6 (4.8-10.8) X10*3/uL RBC 4.71 (4.20-5.50) X10*6/uL Hgb 14.7 (12.0-16.0) g/dl Hct 43.6 (37.0-47.0) % MCV 92.6 (80.0-98.0) fL MCH 31.2 (27.0-33.0) pg MCHC 33.7 (31.0-35.0) g/dl RDW 12.4 (11.0-16.0) % Plt Count 213 (160-400) X10*3/uL MPV 9.1 L (9.4-12.3) fL Immature Gran % (Auto) 0.2 (0.0-0.4) % Neut % (Auto) 69.6 (45-73) % Lymph % (Auto) 19.4 L (20-40) % [place] % (Auto) 9.2 (2-11) % Eos % (Auto) 1.1 (0-4) % Baso % (Auto) 0.5 (0-2) % Lymph # (Auto) 1.1 L (1.2-4.9) X10*3/uL [place] # (Auto) 0.5 (0.1-1.2) X10*3/uL Eos # (Auto) 0.1 (0.0-0.4) X10*3/uL Baso # (Auto) 0.0 (0.0-0.2) X10*3/uL Abs Immat Gran (auto) 0.01 (0.00-0.03) X10*3/uL Absolute Neuts (auto) 3.9 (2.0-8.3) x10*3/uL Absolute Nucleated RBC 0.000 (0.0-0.012) X10*3/uL Nucleated RBC % (auto) 0.0 (0.0-0.2) /100WBC Sodium 140 (135-145) mmol/L Potassium 4.4 (3.3-5.1) mmol/L Chloride 105 (96-108) mmol/L Carbon Dioxide 29 (22-29) mmol/L Anion Gap 10 L (12-20) BUN 12 (9-16) mg/dL Creatinine 0.66 (0.5-1.4) mg/dL Estim Creat Clear Calc 68.9 Estimated GFR > 60 Random Glucose 91 (60-115) mg/dL Calcium 9.7 (8.4-10.2) mg/dL Magnesium 2.1 (1.6-2.6) mg/dL Total Bilirubin 0.5 (0.0-1.0) mg/dL Direct Bilirubin 0.2 (0.0-0.5) mg/dL AST 20 (5-31) U/L ALT 14 (0-31) U/L Alkaline Phosphatase 78 (39-117) U/L Total Protein 7.0 (6.5-8.0) g/dL Albumin 4.6 (3.5-5.0) g/dL Lipase 24 (8-78) U/L Beta HCG, Quant < 2 mIU/mL Urine Color Yellow Urine Appearance Clear Urine pH 5.5 (5.0-9.0) Ur Specific [place] 1.020 (1.005-1.025) Urine Protein Negative (Neg-Trace) mg/dL Urine Glucose (UA) Negative (Negative) mg/dL Urine Ketones Trace (Negative) mg/dL Urine Blood Negative (Negative) Urine Nitrite Negative (Negative) Ur Leukocyte Esterase Negative (Negative) Independent Interpretation I performed an independent interpretation of an: CT Scan Radiology Impression Discussion of test interpretation with radiology: I have reviewed the radiologist's reading. External Record Review External record reviewed: Inpatient record, Office record, Outpatient record, Prior outpatient labs, Prior outpatient radiology, Primary care record and Outside ED record Tests considered The following testing was considered but not selected: As above Prescription Management I considered prescription management with: Pain Medication Chronic Conditions Patient?s care impacted by: Cancer and Other Social Determinants Patient?s care significantly limited by Social Determinants of Health including: Other Social Determinant of Health Medications Administered Discontinued Medications Generic Name Dose Route Start Last Admin Trade Name Freq PRN Reason Stop Dose Admin Sodium Chloride 1,000 mls @ 999 mls/hr 01/11/25 16:00 01/11/25 16:30 Ns IV 01/11/25 17:00 999 mls/hr .Q1H1M LIZETH Administration Ketorolac Tromethamine 15 mg 01/11/25 15:48 01/11/25 16:33 Ketorolac Tromethamine 15 Mg/Ml Vial IVPUSH 01/11/25 15:49 15 mg ONCE ONE Administration Discharge Plan Discharge Clinical Impression: Abdominal pain, right lower quadrant Patient Disposition: Home, Self-Care Instructions: Abdominal Pain (ED) Additional Instructions: Your blood work, urine, and CAT scan are reassuring Please have close follow up with her primary care doctor as well as Gastroenterology and interventional radiology technologist If her symptoms persist or worsen her pain is unbearable, you are unable to eat or drink return to the ED Prescriptions: No Action ibuprofen 800 mg Tablet 800 mg PO Q8H PRN (Reason: Pain, Moderate) duloxetine 20 mg Capsule, Delayed Rel Sprinkle 20 mg PO QAM zolpidem 5 mg tablet 5 mg PO BEDTIME PRN (Reason: Insomnia) Referrals: [facility] [place] G[facility]ology Services [Provider Group, Gastroenterology] - 1 week [facility] [place] [facility] [Provider Group] - 1 week Jimmy Boo MD [Primary Care Provider, Medical] Interventions: ED Discharge Assessment Last Done: 01/11/25 18:06 Discharge Date/Time: 01/11/25 18:06 Print Language: Lao
[2025-01-11 13:47] LABS: MANUAL DIFF FLAG NO
[2025-01-11 13:48] LABS: Hematocrit 43.6 % (37.0-47.0); Hemoglobin 14.7 g/dl (12.0-16.0); Imm Gran Abs Auto 0.01 X10*3/uL (0.00-0.03); Imm Gran Pct Auto 0.2 % (0.0-0.4); Lymphocytes Absolute Auto 1.1 X10*3/uL (1.2-4.9); Mean Corpuscular HGB Conc 33.7 g/dl (31.0-35.0); Mean Corpuscular Hemoglobin 31.2 pg (27.0-33.0); Mean Corpuscular Volume 92.6 fL (80.0-98.0); NRBC Abs Auto 0.000 X10*3/uL (0.0-0.012); NRBC Pct Auto 0.0 /100WBC (0.0-0.2); Platelet Count 213 X10*3/uL (160-400); Red Blood Count 4.71 X10*6/uL (4.20-5.50); White Blood Count 5.6 X10*3/uL (4.8-10.8)
[2025-01-11 14:05] LABS: Appearance Urine Clear; Glucose Urine UA Negative (Negative); PH 5.5 (5.0-9.0); Specific Gravity - Urine 1.020 (1.005-1.025)
[2025-01-11 14:12] LABS: Alanine Aminotransferase 14 U/L (0-31); Albumin Level 4.6 g/dL (3.5-5.0); Alkaline Phosphatase 78 U/L (39-117); Anion Gap 10 (12-20); Aspartate Amino Transferase 20 U/L (5-31); Blood Urea Nitrogen 12 mg/dL (9-16); Calcium 9.7 mg/dL (8.4-10.2); Carbon Dioxide 29 mmol/L (22-29); Chloride 105 mmol/L (96-108); Creatinine Clr Calc Pharmacy 68.9; Estimated Glomerular Filt Rate > 60; Lipase 24 U/L (8-78); Potassium 4.4 mmol/L (3.3-5.1); Sodium 140 mmol/L (135-145); Total Protein 7.0 g/dL (6.5-8.0)
[2025-01-11 16:12] LABS: Magnesium 2.1 mg/dL (1.6-2.6)
[2025-01-11 16:41] VITALS: BP 123/76; PULSE 64; RESP 16; TEMP 36.6; O2SAT 99
--- NOTE | 2025-01-11 16:46 | PC.NURSE ---
patient a&ox3, iv inserted, labs previously drawn. pt medicated for 8/10 abd pain, awaiting ct results, call garcia within reach, plan of care ongoing
[2025-01-11 18:06] VITALS: BP 123/76; PULSE 64; RESP 16; TEMP 36.6; O2SAT 99
== END 2025-01-11 18:06 | disposition home or self-care (01) ==
PROVIDERS: Physician Assistant; Physician Assistant Medical; Emergency Provider Emergency Medicine; PCP Internal Medicine
DX: R10.31 Right lower quadrant pain (principal); G35.D Multiple sclerosis, unspecified; J45.909 Unspecified asthma, uncomplicated; Z85.3 Personal history of malignant neoplasm of breast; Z79.899 Other long term (current) drug therapy
CPT/HCPCS: 36415; 74176; 80048; 80076; 81003; 83690; 83735; 84702; 85025; 96374; 99284; 99285; J1885

== ENCOUNTER → 2025-01-11 15:49 | Outpatient (BNV) | payer OTHER, SELFPAY | PROVIDERS: Emergency Provider Emergency Medicine; PCP Internal Medicine; Visit Provider Radiology Diagnostic Radiology | DX: R10.31 Right lower quadrant pain (principal); R19.7 Diarrhea, unspecified | CPT/HCPCS: 74176 ==

== ENCOUNTER 2025-01-25 13:00 | Outpatient (AMB) | payer OTHER, SELFPAY ==
--- OUTSIDE RECORDS SUMMARY | 2025-01-23 11:40 | XMS_ITS | Encounter Summary ---
Author Organization [facility] Address [address] [place] [address] Care Team Providers Care Professor Of Political Science Name Role Phone Jimmy Boo MD Primary Care Provider [phone] Reason for Referral * Imaging (Routine) - Pending Review Specialty Diagnoses / Procedures Referred By Contac t Referred To Contact Radiology Diagnoses Multiple sclerosis Procedures MR Thoracic Spine wo and w Contrast Ton Prather MD [address] [place] [address] Phone: tel: fax: [facility] Referral ID Status Reason Start Date Expiration Date V isits Requested Visits Authorized [id number] Pending Review 01/23/2025 01/23/2026 1 1 * Imaging (Routine) - Pending Review Specialty Diagnoses / Procedures Referred By Lonny harris Referred To Contact Radiology Diagnoses Multiple sclerosis Procedures MR Cervical Spine wo and w Contrast Ton Prather MD [address] [place] [address] Phone: tel: fax: [facility] Referral ID Status Reason Start Date Expiration Date V isits Requested Visits Authorized [id number] Pending Review 01/23/2025 01/23/2026 1 1 Encounter Details Date Type Department Care Team (Late st Contact Info) Description 01/23/2025 11:40 AM EDT Office Visit [facility] [address] [facility] [address] [place] [id number] Ton Prather MD [address] [place] [address] Multiple sclerosis (Primary Dx); Other fatigue; Gait abnormality Social History Tobacco Use Types Packs/Day Years Used Date Smoking Tobacco: Never Smokeless Tobacco: Never Alcohol Use Standard Drinks/Week Comments Yes 0 (1 standard drink = 0.6 oz pur e alcohol) Comments Unknown Sex and Gender Information Value Date Recorded Sex Assigned at Not on file Legal Sex Female 11:46 AM EST Gender Identity Not on file Sexual Orientation Not on file documented as of this encounter Last Filed Vital Signs Vital Sign Reading Time Taken Comments Blood Pressure 113/73 01/23/2025 11:43 AM EDT Pulse 64 01/23/2025 11:43 AM EDT Temperature - - Respiratory Rate - - Oxygen Saturation 99% 01/23/2025 11:43 AM EDT Inhaled Oxygen Concentration - - Weight 49.4 kg (109 lb) 01/23/2025 11:43 AM EDT Height 149.9 cm (4' 11 ) 01/23/2025 11:43 AM EDT Body Mass Index 22.02 01/23/2025 11:43 AM EDT documented in this encounter Progress Notes * Ton Prather MD - 01/23/2025 11:40 AM EDT HPI: Lakisha Hearn is a 59 y.o. year old female referred to our center by Jimmy Boo MD for evaluation and management of old multiple sclerosis diagnosis of disease modifying therapy since 2013. Disease Summary Date of onset/Initial symptom presentation: Date of diagnosis of MS: Disease course at onset: Current disease course: Last MS exacerbation: Previous disease therapies(reason for switch): Current disease therapy: Most recent MRI Brain: Most recent MRI Cervical spine: Most recent MRI Thoracic spine: CSF: negative for oligoclonal bands normal cell and slightly elevated proteins 52 JCV serology result and date: MS mimickers: HPI 59 yo female with PMH breast cancer in remission, She started having symptoms in her 30's , she haddizzness in my head , she denies any room spinning , she was in bathroom she had metallic taste inher mouth brushing her teeth , battery acid she was evaluated in hospital for possible stroke , around 2007 , she had work up done diagnosed with MS , Started on copaxone , she was on it for years unclear how long , She was diagnosed with cancer Rt breast cancer, she was doing chemo radiation and surgery she has been remission almost 10 yrs ,she stopped copaxone when she was diagnosed with breast cancer and since then she has not been on any disease modifying therapy She has been having more symptoms , with hand numbness , and heaviness lasting for days waxing and wanning , unclear if it was episodic or attacks She has fatigable weakness ,mainly on Lt leg which drags after walking for prolonged distances She recall episodes of blurry vision lasting for minutes no prolonged episodes for more than 24 hours She ocassionally have gait imbalance More recently she was reevaluated by Dr. Garber had a spinal tap done that was negative for oligoclonal bands normal cell and slightly elevated proteins 52, there was a question about her diagnosis she came to our clinic for second opinion Active Symptoms: Bowel/bladder:she has been having urgency , frequency , she has constipation Gait impairment: she has limitation Fatigue: she does Taking vitamin D supplementation: no Heat Sensitivity:yes Past or present Lhermitte's: no Past Medical History: Diagnosis Date Anemia DX:Anemia Anxiety 02/22/2020 DX:Anxiety Arthritis Asthma DX:Asthma Depression DX:Depression Foot swelling DX:Foot swelling GERD (gastroesophageal reflux disease) DX:GERD (gastroesophageal reflux disease) Heart palpitations DX:Heart palpitations History of breast cancer in female 11/25/2011 DX:History of breast cancer in female; COMMENT: Right IDC, pT1c N1a, ER/AZ pos, Her2 neg, s/p partial mastectomy and axillary node dissection 11/25/2011 Mastodynia DX:Mastodynia Mechanical and motor problems with neck and trunk DX:Mechanical and motor problems with neck and trunk Multiple sclerosis (CMS/HCC V24, CMS/HCC V28) DX:Multiple sclerosis (HCC) Pap smear abnormality of cervix/human papillomavirus (HPV) positive 02/22/2020 DX:Pap smear abnormality of cervix/human papillomavirus (HPV) positive; COMMENT: 08/2018 HPV positive, 11/07/2019 HPV positive Seizures ([facility]/HCC V24, [facility] V28) DX:Seizures ([facility]) Current Outpatient Medications Medication Sig Dispense Refill ibuprofen (ADVIL,MOTRIN) 600 mg tablet Take 400 mg by mouth 1 (one) time each day if needed. zolpidem (AMBIEN) 10 mg tablet Take 1 tablet (10 mg total) by mouth at bedtime. Max Daily Amount: 10 mg No current facility-administered medications for this visit. Allergies Allergen Reactions Adhesive Tape-Silicones Bee Venom Protein (Honey Bee) Iodinated Contrast Media Other Other Topiramate Other Trouble breathing Other reaction(s): Trouble Breathing Family history: There is no significant family history of multiple sclerosis, rheumatoid arthritis,type 1 diabetes, lupus, or other autoimmune diseases. Neurologic Exam: Visit Vitals Smoking Status Never MS: AOx3 CN: perrla,V1-3 intact to LT, face symmetric, bilateral SCM/trapezius 5/5, tongue/uvula/palate midline Motor: 5/5 in all extremities 4/5 hip flexor Sensation:decreased vibration distally Reflexes: 2+ in bilateral biceps and patellae, ? Babinski Lt Cerebellar: FNF intact bilaterally, FFM intact bilaterally, JORDON intact bilaterally, slight difficulty tandem gait romberg negative Labs: Imaging: No images were reviewed by me. MRI brain: 2024 T2 changes with new changes compared to 2014 A/P: Lakisha Hearn is a 59 y.o. year old female referred to our center by Jimmy Boo MD for evaluation and management of white matter lesion with an old diagnosis of multiple sclerosis has not been on disease modifying therapy since almost 2013 patient had progressively getting worse ambulatory and fatigue. Based on the clinical history, neurologic exam, and imaging, I do think that I need to obtain prior MRIs updated to review I would like to obtain prior an MRI of the brain, cervical, and thoracic spine to assess the current disease burden. I would also like to check bloodwork for MS mimickers. We have discussed the array of services the [facility] has to offer patients and I have recommended the following as listed below. Need to obtain records from prior neurologist - Obtain prior MRI brain/C/T spine with and without contrast to assess current disease burden If MRI spine was not done we will obtain an MRI spine -bloodwork for MS mimickers (lyme, SSa, SSb, dsDNA, RF, B12, folate, HIV -check vitamin D level and JCV Ab status - Will consider PT/OT/ST referral for functional evaluation - Will consider urology referral -RTC in 2 months for follow up The patient and I discussed the clinical picture during today's appointment. Additional time was spent prior to the actual appointment reviewing records, lab values and imaging results and preparing documentation for today's visit. There was also time spent following the in person visit documenting, arranging for further diagnostic testing and follow-up appointments. The entire time spent in thisprocess was greater than 60 minutes. The majority of the actual [id number] visit was spent counseling the patient with respect to the current neurological picture. Ton Prather MD * Ton Prather MD - 01/23/2025 11:40 AM EDT HPI: Lakisha Hearn is a 59 y.o. year old female referred to our center by Jimmy Boo MD for evaluation and management of old multiple sclerosis diagnosis of disease modifying therapy since 2013. Disease Summary Date of onset/Initial symptom presentation: Date of diagnosis of MS: Disease course at onset: Current disease course: Last MS exacerbation: Previous disease therapies(reason for switch): Current disease therapy: Most recent MRI Brain: Most recent MRI Cervical spine: Most recent MRI Thoracic spine: CSF: negative for oligoclonal bands normal cell and slightly elevated proteins 52 JCV serology result and date: MS mimickers: MOG ab negative , AQP4 AB nega SSA SSBtive Interval history Patient is here for follow up No new neurological symptom concerning for demyelination since last visit Since last visit she has been struggling with multiple other health concerns she has workup done for lymph nodes her pelvic area Reviewed MRI results with the patient with T2 changes that are concerning for inflammation discussed with the patient to follow-up MRI with contrast patient is ready for contrast only for contrast oral she will verify from [place] Denies a change in bowel or bladder Reviewed and discussed lab results HPI 59 yo female with PMH breast cancer in remission, She started having symptoms in her 30's , she haddizzness in my head , she denies any room spinning , she was in bathroom she had metallic taste inher mouth brushing her teeth , battery acid she was evaluated in hospital for possible stroke , around 2007 , she had work up done diagnosed with MS , Started on copaxone , she was on it for years unclear how long , She was diagnosed with cancer Rt breast cancer, she was doing chemo radiation and surgery she has been remission almost 10 yrs ,she stopped copaxone when she was diagnosed with breast cancer and since then she has not been on any disease modifying therapy She has been having more symptoms , with hand numbness , and heaviness lasting for days waxing and wanning , unclear if it was episodic or attacks She has fatigable weakness ,mainly on Lt leg which drags after walking for prolonged distances She recall episodes of blurry vision lasting for minutes no prolonged episodes for more than 24 hours She ocassionally have gait imbalance More recently she was reevaluated by Dr. Garber had a spinal tap done that was negative for oligoclonal bands normal cell and slightly elevated proteins 52, there was a question about her diagnosis she came to our clinic for second opinion Active Symptoms: Bowel/bladder:she has been having urgency , frequency , she has constipation Gait impairment: she has limitation Fatigue: she does Taking vitamin D supplementation: no Heat Sensitivity:yes Past or present Lhermitte's: no Past Medical History: Diagnosis Date Anemia DX:Anemia Anxiety 02/22/2020 DX:Anxiety Arthritis Asthma DX:Asthma Depression DX:Depression Foot swelling DX:Foot swelling GERD (gastroesophageal reflux disease) DX:GERD (gastroesophageal reflux disease) Heart palpitations DX:Heart palpitations History of breast cancer in female 11/25/2011 DX:History of breast cancer in female; COMMENT: Right IDC, pT1c N1a, ER/AZ pos, Her2 neg, s/p partial mastectomy and axillary node dissection 11/25/2011 Mastodynia DX:Mastodynia Mechanical and motor problems with neck and trunk DX:Mechanical and motor problems with neck and trunk Multiple sclerosis (CMS/HCC V24, CMS/HCC V28) DX:Multiple sclerosis (HCC) Pap smear abnormality of cervix/human papillomavirus (HPV) positive 02/22/2020 DX:Pap smear abnormality of cervix/human papillomavirus (HPV) positive; COMMENT: 08/2018 HPV positive, 11/07/2019 HPV positive Seizures (CMS/HCC V24, CMS/HCC V28) DX:Seizures (HCC) Current Outpatient Medications Medication Sig Dispense Refill albuterol HFA (PROAIR HFA ; PROVENTIL HFA ; VENTOLIN HFA) 90 mcg/actuation inhaler Inhale 2 puffs by mouth if needed for wheezing or shortness of breath. zolpidem (AMBIEN) 10 mg tablet Take 1 tablet (10 mg total) by mouth at bedtime. Max Daily Amount: 10 mg No current facility-administered medications for this visit. Allergies Allergen Reactions Adhesive Tape-Silicones Bee Venom Protein (Honey Bee) Iodinated Contrast Media Other Other Topiramate Other Trouble breathing Other reaction(s): Trouble Breathing Family history: There is no significant family history of multiple sclerosis, rheumatoid arthritis,type 1 diabetes, lupus, or other autoimmune diseases. Neurologic Exam: Visit Vitals BP 113/73 (BP Location: Left arm, Patient Position: Sitting, BP Cuff Size: Small adult) Pulse 64 Ht 1.499 m (59 ) Wt 49.4 kg (109 lb) SpO2 99% BMI 22.02 kg/m?? Smoking Status Never BSA 1.42 m?? MS: AOx3 CN: perrla,V1-3 intact to LT, face symmetric, bilateral SCM/trapezius 5/5, tongue/uvula/palate midline Motor: 5/5 in all extremities 4/5 hip flexor weaker on right lower extremity Sensation:decreased vibration distally Reflexes: 2+ in bilateral biceps and patellae, ? Babinski Lt Cerebellar: FNF intact bilaterally, FFM intact bilaterally, JORDON intact bilaterally, slight difficulty tandem gait romberg negative Labs: Imaging: No images were reviewed by me. MRI brain: 2024 T2 changes with new changes compared to 2014 A/P: Lakisha Hearn is a 59 y.o. year old female referred to our center by Jimmy Boo MD for evaluation and management of white matter lesion with an old diagnosis of multiple sclerosis has not been on disease modifying therapy since almost 2013 patient had progressively getting worse ambulatory and fatigue. Based on the clinical history, neurologic exam, and imaging, I do think that I need to obtain prior MRIs updated to review I would like to obtain prior an MRI of the brain, cervical, and thoracic spine to assess the current disease burden. I would also like to check bloodwork for MS mimickers. We have discussed the array of services the [facility] has to offer patients and I have recommended the following as listed below. Reviewed MRI results with the patient with T2 changes that are concerning for inflammation discussed with the patient to follow-up MRI with contrast patient is ready for contrast only for contrast oral she will verify from [place] Need to obtain records from prior neurologist - MRI brain/C/T spine with and without contrast to assess current disease burden -bloodwork for MS mimickers negative - Will consider PT/OT/ST referral for functional evaluation - Will consider urology referral -RTC in 2 months for follow up The patient and I discussed the clinical picture during today's appointment. Additional time was spent prior to the actual appointment reviewing records, lab values and imaging results and preparing documentation for today's visit. There was also time spent following the in person visit documenting, arranging for further diagnostic testing and follow-up appointments. The entire time spent in thisprocess was greater than 40 minutes. The majority of the actual [id number] visit was spent counseling the patient with respect to the current neurological picture. Ton Prather MD documented in this encounter Plan of Treatment Upcoming Encounters Date Type Department Care Team ([facility] st Contact Info) Description 03/27/2025 11:00 AM EST Office Visit [facility] - [address] [place] [address] Ton Prather MD [address] [place] [id number] Scheduled Orders Name Type Priority Associated Diagnoses Orde r Schedule MR Cervical Spine wo and w Contrast Imaging Routine Multiple sclerosis Expected: 01/23/2025, Expires: 01/23/2026 MR Thoracic Spine wo and w Contrast Imaging Routine Multiple sclerosis Expected: 01/23/2025, Expires: 01/23/2026 documented as of this encounter Visit Diagnoses Diagnosis Multiple sclerosis- Primary Other fatigue Gait abnormality Abnormality of gait documented in this encounter Discontinued Medications Medication Sig Discontinue Reason Start Date End Da te ibuprofen (ADVIL,MOTRIN) 600 mg tablet Take 400 mg by mouth 1 (one) time each day if needed. Therapy completed 03/08/2024 01/23/2025 documented as of this encounter Historical Medications * This list may reflect changes made after this encounter. albuterol HFA (PROAIR HFA ; PROVENTIL HFA ; VENTOLIN HFA) 90 mcg/actuation inhaler Inhale 2 puffs by mouth if needed for wheezing or shortness of breath. 12/14/2024 added in this encounter Care Teams Professor Of Political Science Relationship Specialty Start Date End Date Jimmy Boo MD [address] [place] [address] PCP - General Internal Medicine 11/23/19 documented as of this encounter
--- NOTE | 2025-01-25 13:04 | A.OFFVIS_ITS ---
Intake Visit Reasons: 1 year Follow up Intake Note: Patient presents today for a 1y follow-up Meds-NONE blood thinners: none today's PVR: Accident Investigator Required: No Accompanied by: Self / Same As Patient Allergies Iodinated Contrast Media (IV CONTRAST) Allergy (Severe, Verified 01/25/25 13:07) (ULTRAVIST) TINGLING OF LIPS AND SWELLING LIPS AND EYES adhesive tape (ADHESIVE TAPE) Allergy (Intermediate, Verified 01/25/25 13:07) BLISTERS tamoxifen (TAMOXIFEN) Allergy (Mild, Verified 01/25/25 13:07) GI UPSET Sulfa (Sulfonamide Antibiotics) (SULFA (SULFONAMIDE ANTIBIOTICS)) Allergy (Unknown, Verified 01/25/25 13:07) UNKNOWN bee pollen (bee stings) Allergy (Verified 01/25/25 13:07) Swelling HPI Comments Details: 01/25/25- History of Present Illness The patient is a 59-year-old female presenting with chronic interstitial cystitis for a one-year follow-up. The patient is visibly upset today. The patient states her son passed after a sudden accident. IC involves inflammation of the bladder lining, which has been monitored over time. The patient reports no significant pain during urination, although there is occasional post-void dribbling. The patient has been advised to monitor her diet, particularly reducing caffeine intake, to manage symptoms. She has been consuming one to two cups of coffee daily and is aware of the need to limit this to no more than one cup. Results - Urinalysis: No signs of infection, trace blood cells present Plan 1. Chronic Interstitial Cystitis - Continue monitoring bladder health and symptoms - Advise dietary modifications, including reducing caffeine intake 01/26/24--Lakisha is a 58-year-old female who presents today to the office for a follow-up. She is followed today for interstitical cystitis. Urinary urgency secondary to small capacity bladder, the patient is not interested in medications at this time. Diet modification IC diet. Will continue to monitor. 01/24/23?Lakisha is a 57-year-old female who presents today to the office for a follow-up. She is followed today for interstitical cystitis. She was last seen by me on 03/24/22.?She is a status post Cystoscopy hydrodistention done on 03/02/2022, findings notable for glmoerulations and small bladder capacity 375 mL. She returned to the hospital for bladder pain and Walton catheter was placed for urinary retention and had an overnight stay for observation. In office follow-up she stated that her urinary symptoms of urgency had improved. She has been counselled on diet modifications to avoid dietary bladder irritants. Patient states that her urinary symptoms of urgency has improved at this time. Last visit: 03/24/22? -s/p cysto/hydro- 03/02/22--findings ++glomerulations, small bladder capacity post distension 375 mL. [facility] Medical History Breast cancer History of right breast cancer Hypothyroid Multiple sclerosis Seizure Dyspnea on exertion Palpitations Asthma Subcutaneous mass Interstitial cystitis Surgical History Hx of elbow surgery Hx of rotator cuff surgery History of cystoscopy History of excision of mass (06/07/18) History of colonoscopy (06/2016) History of lumpectomy of right breast History of right breast biopsy History of tubal ligation History of ear surgery Family History Mother Colon cancer Father Bone cancer Lung cancer Brother Cancer of unknown origin Sister Leaky heart valve Brother CHF (congestive heart failure) Social History Patient Tobacco Use Status: Former Tobacco user Tobacco use type: Cigarette Advance Directives Date on File: 09/13/14 Current occupational status: disabled Current occupation: rt hand Review of Systems Const All systems reviewed & are unremarkable except as noted in HPI and below Reports no additional complaints Eyes Reports no additional complaints ENT Reports no additional complaints Card Reports no additional complaints Resp Reports no additional complaints GI Reports no additional complaints Reports as per HPI Musc Reports no additional complaints Skin/Breast Reports system reviewed and no additional complaints, except as documented Neuro Reports no additional complaints Psych Reports no additional complaints Endo Reports no additional complaints [place]/Lymph Reports no additional complaints Aller/Immun Reports no additional complaints Office Procedures Post Void Residual Post Residual Void Post Void Residual (PVR): 0 70367-Tsiv Void Residual by ultrasound Results AMB Urinalysis, Automated UA Leukoctes 0 Edmund/uL Last Edit by TOMA Hurtado on 01/25/25 13:29 UA Nitrite Last Edit by TOMA Hurtado on 01/25/25 13:29 UA Urobilinogen 0.2 mg/dL Last Edit by TOMA Hurtado on 01/25/25 13:2 9 UA Protein 0 mg/dL Last Edit by TOMA Hurtado on 01/25/25 13:29 UA pH 6.0 Last Edit by Aida Peng CCM on 01/25/25 13:29 UA Blood 0 Enoc/uL Last Edit by TOMA Hurtado on 01/25/25 13:29 UA Specific Ophelia 1.010 Last Edit by TOMA Hurtado on 01/25/25 13: 29 UA Ketone Last Edit by TOMA Hurtado on 01/25/25 13:29 UA Bilirubin 0 mg/dL Last Edit by TOMA Hurtado on 01/25/25 13:29 UA Glucose 0 mg/dL Last Edit by TOMA Hurtado on 01/25/25 13:29 Assessment & Plan Assessment & Plan (1) Interstitial cystitis: Code(s): N30.10 - Interstitial cystitis (chronic) without hematuria Category: Medical (2) Urinary urgency: Code(s): R39.15 - Urgency of urination Category: Medical (3) Microscopic hematuria: Code(s): R31.29 - Other microscopic hematuria Category: Medical Plan Plan 1. Chronic Interstitial Cystitis - Continue monitoring bladder health and symptoms - Advise dietary modifications, including reducing caffeine intake Orders: Orders AMB Post Void Residual by ultrasound Today R39.15 - Urgency of urination AMB Urinalysis Automated Today Z13.9 - Encounter for screening, unspecified Patient Instructions: The patient had an opportunity to ask questions regarding treatment plan. The patient expressed understanding and agreement with the above treatment plan. The patient is aware they should contact our office by phone for worsening of their current condition or the appearance of new symptoms. Compliance is encouraged with any medications and followup testing that is ordered. It is a privilege to be allowed the opportunity to participate in the urologic care of your patient. If you have any questions or concerns regarding treatment for the above conditions please do not hesitate to contact me. The office telephone contact is [phone]. This note is constructed in part using voice recognition software. While every effort has been made to ensure accuracy bench carpenter errors may have been included. Yours sincerely, Deann Tirado MD Scribe Plan - Not visible on output: Patient was informed and verbally consented to the use of an ambient scribe for clinic note documentation during this visit. Coding Level of Care Code Est Pt Level 3 (36269) Complex EM visit Add On G2211 Diagnoses Interstitial cystitis N30.10 Urinary urgency R39.15 Microscopic hematuria R31.29 CPT Codes Post Residual Void - PVR CPT Code: 06304-Czng Void Residual by ultrasound ([id number])
--- OUTSIDE RECORDS SUMMARY | 2025-01-25 15:00 | XMS_ITS | Encounter Summary ---
Author Organization [employer] Address [address] [place] [address] 7 [place] [address] Care Team Providers Care Food Checkers And Cashiers Supervisor Name Role Phone Jimmy Boo MD Primary Care Provider [phone] Reason for Referral * Consultation (Routine) - Closed Specialty Diagnoses / Procedures Referred By Contac t Referred To Contact Neurology Diagnoses Chronic tension-type headache, not intractable Jimmy Boo MD [address] [place] [address] Phone: tel: fax: Rory Garber MD [address] [place] [address] [place] [address] Phone: tel: fax: Referral ID Status Reason Start Date Expiration Date V isits Requested Visits Authorized [id number] Closed Specialty Services Required 03/18/2024 03/18/2025 1 1 Encounter Details Date Type Department Care Team (Late st Contact Info) Description 03/18/2024 Orders Only [facility] CH[facility] MED & PEDS [address] [place], [place] [phone] Jimmy Boo MD [address] [place], [place] [phone] Chronic tension-type headache, not intractable (Primary Dx) [...] [facility] [address] [place] [address] Raza Boo Scheduled Referrals Name Type Priority Associated Diagnoses Orde r Schedule Referral to Neurology Outpatient Referral Routine Chronic tension-type headache, not intractable Expected: 03/18/2024 (Approximate), Expires: 03/18/2025 documented as of this encounter Visit Diagnoses Diagnosis Chronic tension-type headache, not intractable- Primary Chronic tension type headache documented in this encounter Care Teams Food Checkers And Cashiers Supervisor Relationship Specialty Start Date End Date Jimmy Boo MD [address] [place] [address] PCP - General Internal Medicine 05/03/13 documented as of this encounter
--- OUTSIDE RECORDS SUMMARY | 2025-01-25 15:00 | XMS_ITS | Encounter Summary ---
Author Organization [employer] Address [address] [facility] 7t [place] [address] Care Team Providers Care Scheduling Specialist Name Role Phone Jimmy Boo MD Primary Care Provider [phone] Reason for Visit * Reason Onset Date Comments Med Refill 01/25/2025 Encounter Details Date Type Department Care Team ([facility] st Contact Info) Description 01/25/2025 Refill [facility] CHC MED & PEDS [address] [place] [address] Jimmy Boo MD [address] [place] [address] Primary insomnia Social History Tobacco Use Types [...] Telephone Encounter - Yisel Bradshaw LPN - 01/25/2025 2:08 PM EDT MUSIC INTERN checked on 01/25/25. Last seen 12/19/24. * Telephone Encounter - David Escobedo - 01/25/2025 2:05 PM EDT TC from pt requesting medication refill. Medications needing refill : zolpidem (Ambien) 10 MG tablet To be sent to: [facility]/pharmacy #[id number] [place] - [phone] documented in this encounter Plan of Treatment Upcoming Encounters Date Type Department Care Team (Late st Contact Info) Description 04/01/2025 2:15 PM EST Office Visit [facility] ADULT DENTAL [address] [place] [address] Raza Boo documented as of this encounter Visit Diagnoses Diagnosis Primary insomnia Persistent disorder of initiating or maintaining sleep documented in this encounter Additional Health Concerns Assessment Noted Time PHQ-9 Depression Total Score: 8 06/05/19 25 2:12 PM EST documented as of this encounter Care Teams Scheduling Specialist Relationship Specialty Start Date End Date Jimmy Boo MD [address] [place] [address] PCP - General Internal Medicine 05/03/13 documented as of this encounter
--- OUTSIDE RECORDS SUMMARY | 2025-01-25 15:00 | XMS_ITS | Encounter Summary ---
Author Organization [employer] Address 75 [facility] 7 [place] [address] Care Team Providers Care Commissary Assistant Name Role Phone Jimmy Boo MD Primary Care Provider [phone] Encounter Details Date Type Department Care Team (Latest Contact Info) Description 08/16/2018 Abstract [facility] CONVERSIONS Dental, Provider, DDS Social History Tobacco [...] Visit [facility] ADULT DENTAL [address] [place] [address] Raza Boo documented as of this encounter Visit Diagnoses Not on filedocumented in this encounter Care Teams Commissary Assistant Relationship Specialty Start Date End Date Jimmy Boo MD [address] [place] [address] PCP - General Internal Medicine 05/03/13 documented as of this encounter
--- OUTSIDE RECORDS SUMMARY | 2025-01-25 15:00 | XMS_ITS | Encounter Summary ---
Author Organization [employer] Address 75 [facility] 7t [place] [address] Care Team Providers Care Baker Paint Name Role Phone Jimmy Boo MD Primary Care Provider [phone] Reason for Visit * Reason Comments Med Refill Encounter Details Date Type Department Care Team ([facility] st Contact Info) Description 12/29/2023 Refill [facility] MEDICINE [address] [place] [address] Jimmy Boo MD [address] [place] [address] Primary insomnia Social History Tobacco Use Types [...] t he electric, gas, oil or water [employer] threatened to shut off services in your [...] 04/01/2025 2:15 PM EST Office Visit [facility] ADULT DENTAL [address] [place] [address] Raza Boo documented as of this encounter Visit Diagnoses Diagnosis Primary insomnia Persistent disorder of initiating or maintaining sleep documented in this encounter Care Teams Baker Paint Relationship Specialty Start Date End Date Jimmy Boo MD [address] [place] [address] PCP - General Internal Medicine 05/03/13 documented as of this encounter
--- OUTSIDE RECORDS SUMMARY | 2025-01-25 15:00 | XMS_ITS | Encounter Summary ---
Author Organization [employer] Address 75 [facility] 7t [place] [address] Care Team Providers Care Intranet Developer Name Role Phone Jimmy Boo MD Primary Care Provider [phone] Reason for Visit * Reason Comments Med Refill Encounter Details Date Type Department Care Team ([facility] st Contact Info) Description 12/28/[address] [facility] MEDICINE [address] [place] [address] Jimmy Boo MD [address] [place] [address] Primary insomnia Social History Tobacco Use Types [...] t he electric, gas, oil or water [employer] threatened to shut off services in your [...] Description 04/01/2025 2:15 PM EST Office Visit [facility] ADULT DENTAL 505 [place] [address] Raza Boo documented as of this encounter Visit Diagnoses Diagnosis Primary insomnia Persistent disorder of initiating or maintaining sleep documented in this encounter Care Teams Intranet Developer Relationship Specialty Start Date End Date Jimmy Boo MD [address] [place] [address] PCP - General Internal Medicine 05/03/13 documented as of this encounter
--- OUTSIDE RECORDS SUMMARY | 2025-01-25 15:00 | XMS_ITS | Encounter Summary ---
Author Organization [employer] Address 75 [facility] 7t [place] [address] Care Team Providers Care Extract Operator Name Role Phone Jimmy Boo MD Primary Care Provider [phone] Reason for Visit * Reason Onset Date Comments Nurse Triage 10/24/2023 Encounter Details Date Type Department Care Team ([facility] Contact Info) Description 10/24/2023 Telephone [facility] CHC MED & PEDS [address] [place], [place] [phone] Jimmy Boo MD [address] [place] [address] Nurse Triage Social History Tobacco Use Types [...] past 12 months, has t he electric, [employer], oil or water [employer] threatened to shut off services in your [...] PCP. Please see notes, Please contact at [phone] * Telephone Encounter - Diane Garcia RN [...] a video call tomorrow when PCP opens [facility] schedule 10/25/23. Pt. Would prefer [...] caller accepted this outcome Contact pt at [phone] documented in this encounter Plan of Treatment Upcoming Encounters Date Type Department Care Team (Late st Contact Info) Description 04/01/2025 2:15 PM EST Office Visit [facility] ADULT DENTAL [address] [place] [address] Raza Boo documented as of this encounter Visit Diagnoses Diagnosis Primary insomnia Persistent disorder of initiating or maintaining sleep documented in this encounter Care Teams Extract Operator Relationship Specialty Start Date End Date Jimmy Boo MD [address] [place] [address] PCP - General Internal Medicine 05/03/13 documented as of this encounter
--- OUTSIDE RECORDS SUMMARY | 2025-01-25 15:00 | XMS_ITS | Encounter Summary ---
Author Organization [employer] Address 75 [facility] 7t [place] [address] Care Team Providers Care Electrical Engineer Name Role Phone Jimmy Boo MD Primary Care Provider [phone] Encounter Details Date Type Department Care Team ([facility] Contact Info) Description 11/28/2023 Orders Only [facility] CHC MED & PEDS [address] [place], [place] [phone] Jimmy Boo MD [address] [place] [address] Social History Tobacco Use Types Packs/Day Years [...] [facility] ADULT D[facility] [address] [place] [address] Raza Boo documented as of this encounter Visit Diagnoses Not on filedocumented in this encounter Care Teams Electrical Engineer Relationship Specialty Start Date End Date Jimmy Boo MD [address] [place] [address] PCP - General Internal Medicine 05/03/13 documented as of this encounter
--- OUTSIDE RECORDS SUMMARY | 2025-01-25 15:00 | XMS_ITS | Encounter Summary ---
Author Organization [employer] Address [address] [facility] [address] 7t [place] [address] Care Team Providers Care Personnel Scheduler Name Role Phone Jimmy Boo MD Primary Care Provider [phone] Reason for Visit * Reason Comments Med Refill Encounter Details Date Type Department Care Team ([facility] Contact Info) Description 12/02/2023 Refill [facility] CHC ADULT DENTAL [address] [place] [address] Luis Guzman DDS [address] [place] [address] Social History Tobacco Use Types Packs/Day Years [...] encounter Miscellaneous Notes * Telephone Encounter - Lius Guzman DDS - 12/06/2023 10:20 AM EDT Approving, but needs appt for additional refills. documented in this encounter Plan of Treatment Upcoming Encounters Date Type Department Care Team ([facility] st Contact Info) Description 04/01/2025 2:15 PM EST Office Visit [facility] ADULT DENTAL [address] [place] [address] Raza Boo documented as of this encounter Visit Diagnoses Not on filedocumented in this encounter Care Teams Personnel Scheduler Relationship Specialty Start Date End Date Jimmy Boo MD [address] [place] [address] PCP - General Internal Medicine 05/03/13 documented as of this encounter
--- OUTSIDE RECORDS SUMMARY | 2025-01-25 15:00 | XMS_ITS | Encounter Summary ---
Author Organization [employer] Address [address] [facility] 7t [place] [address] Care Team Providers Care Media Director Name Role Phone Jimmy Boo MD Primary Care Provider [phone] Reason for Visit * Reason Comments Med Refill Encounter Details Date Type Department Care Team ([facility] Contact Info) Description 03/16/2022 Refill [facility] MEDICINE [address] [place] [address] Jimmy Boo MD [address] [place], [place] [phone] Insomnia, unspecified Social History Tobacco Use Types [...] Upcoming Encounters Date Type Department Care Team ([facility] Contact Info) Description 04/01/2025 2:15 PM EST Office Visit [facility] CH[facility] ADULT DENTAL [address] [place] [address] Raza Boo documented as of this encounter Visit Diagnoses Diagnosis Insomnia, unspecified documented in this encounter Care Teams Media Director Relationship Specialty Start Date End Date Jimmy Boo MD [address] [place] [address] PCP - General Internal Medicine 05/03/13 documented as of this encounter
--- OUTSIDE RECORDS SUMMARY | 2025-01-25 15:00 | XMS_ITS | Encounter Summary ---
Author Organization [employer] Address 75 [facility] 7 [place] [address] Care Team Providers Care Intervention Teacher Name Role Phone Jimmy Boo MD Primary Care Provider [phone] Reason for Visit * Reason Comments Med Refill Encounter Details Date Type Department Care Team ([facility] Contact Info) Description 04/22/2022 Refill [facility] MEDICINE [address] [place], [place] [phone] Jimmy Boo MD [address] [place], [place] [phone] SOB (shortness of breath) Social History Tobacco [...] Upcoming Encounters Date Type Department Care Team ([facility] Contact Info) Description 04/01/2025 2:15 PM EST Office Visit [facility] CHC ADULT DENTAL [address] [place] [address] Raza Boo documented as of this encounter Visit Diagnoses Diagnosis SOB (shortness of breath) Shortness of breath documented in this encounter Care Teams Intervention Teacher Relationship Specialty Start Date End Date Jimmy Boo MD [address] [place] [address] PCP - General Internal Medicine 05/03/13 documented as of this encounter
--- OUTSIDE RECORDS SUMMARY | 2025-01-25 15:00 | XMS_ITS | Encounter Summary ---
Author Organization [email or web address] Address [address] [facility] [address] 7t [place] [address] Care Team Providers Care Piece Dye Worker Name Role Phone Jimmy Boo MD Primary Care Provider [phone] Reason for Visit * Reason Comments Med Refill Encounter Details Date Type Department Care Team ([facility] Contact Info) Description 11/03/2023 Refill [facility] CHC ADULT DENTAL [address] [place] [address] Luis Guzman DDS [address] [place] [address] Social History Tobacco Use Types Packs/Day Years [...] Upcoming Encounters Date Type Department Care Team ([facility] st Contact Info) Description 04/01/2025 2:15 PM EST Office Visit [facility] ADULT DENTAL [address] [place] [address] Raza Boo documented as of this encounter Visit Diagnoses Not on filedocumented in this encounter Care Teams Piece Dye Worker Relationship Specialty Start Date End Date Jimmy Boo MD [address] [place] [address] PCP - General Internal Medicine 05/03/13 documented as of this encounter
--- OUTSIDE RECORDS SUMMARY | 2025-01-25 15:00 | XMS_ITS | Encounter Summary ---
Author Organization [employer] Address [address] [facility] 7t [place] [address] Care Team Providers Care Area Representative Name Role Phone Jimmy Boo MD Primary Care Provider [phone] Reason for Visit * Reason Onset Date Comments Nurse Triage 07/02/2024 Encounter Details Date Type Department Care Team ([facility] st Contact Info) Description 07/02/2024 Telephone [facility] MEDICINE [address] [place] [address] Jimmy Boo MD [address] [place] [address] Nurse Triage Social History Tobacco Use Types [...] Pt had [facility] and has had some increased back pain since then. Pt denies redness, swelling at site but, is concerned as to the length of time having pain. ASK apt [facility] CHC today at 320pm. Pt agrees with [...] acuity questions The caller accepted this outcome. [phone] Pt had lumbar procedure on june 14. documented in this encounter Plan of Treatment Upcoming Encounters Date Type Department Care Team ([facility] st Contact Info) Description 04/01/2025 2:15 PM EST Office Visit [facility] ADULT DENTAL [address] [place] [address] Raza Boo documented as of this encounter Visit Diagnoses Not on filedocumented in this encounter Additional Health Concerns Assessment Noted Time PHQ-9 Depression Total Score: 8 06/05/19 25 2:12 PM EST documented as of this encounter Care Teams Area Representative Relationship Specialty Start Date End Date Jimmy Boo MD [address] [place] [address] PCP - General Internal Medicine 05/03/13 documented as of this encounter
--- OUTSIDE RECORDS SUMMARY | 2025-01-25 15:00 | XMS_ITS | Encounter Summary ---
Author Organization [email or web address] Address [address] [facility] 7[address] [place] [address] Care Team Providers Care Smoking Pipe Coater Name Role Phone Jimmy Boo MD Primary Care Provider [phone] Encounter Details Date Type Department Care Team ([facility] st Contact Info) Description 04/25/2024 Orders Only [facility] MED & PEDS [address] [place], [place] [phone] Jimmy Boo MD [address] [place] [address] Primary insomnia Social History Tobacco Use Types [...] OF [facility] ADULT DENTAL [address] [place] [address] Raza Boo documented as of this encounter Visit Diagnoses Diagnosis Primary insomnia Persistent disorder of initiating or maintaining sleep documented in this encounter Care Teams Smoking Pipe Coater Relationship Specialty Start Date End Date Jimmy Boo MD [address] [place] [address] PCP - General Internal Medicine 05/03/13 documented as of this encounter
--- OUTSIDE RECORDS SUMMARY | 2025-01-25 15:00 | XMS_ITS | Encounter Summary ---
Author Organization [employer] Address [address] [facility] 7[address] [place] [address] Care Team Providers Care Building Insulation Supervisor Name Role Phone Jimmy Boo MD Primary Care Provider [phone] Encounter Details Date Type Department Care Team ([facility] st Contact Info) Description 10/24/2023 Orders Only [facility] CHC MED & PEDS [address] [place], [place] [phone] Jimmy Boo MD [address] [place] [address] Herpes zoster without complication (Primary Dx) Social [...] t he electric, gas, oil or water [employer] threatened to shut off services in your [...] Description 04/01/2025 2:15 PM EST Office Visit [facility] ADULT DENTAL [address] [place] [address] Raza Boo documented as of this encounter Procedures Procedure Name Priority Date/Time Associated Diagnosis Comments XR FINGERS 2+ VIEWS RIGHT Routine 11/23/2023 11:55 AM EDT documented in this encounter Results * XR Fingers 2+ Views Right (11/23/2023 11:55 AM EDT) Anatomical Region Laterality Modality Upper Extremities, Fingers Right [employer] Imaging 11/23/2023 11:5 5 AM EDT Narrative 11/27/2023 2:15 PM EDT [address] [address] XRay Report Signed Patient: Lakisha Hearn MR#: [id number] : 1965 Acct:[id number] Age/Sex: 58 / F ADM Date: 11/23/23 Loc: [facility] Attending Dr: Jimmy Boo MD Ordering Physician: Jimmy Boo MD Date of Service: 11/23/23 Procedure(s): XR finger RT min 2V Accession Number(s): [id number] cc: Jimmy Boo MD EXAMINATION: XR FINGER, [...] unremarkable. 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 slightly progressed compared with February 2019 Electronically signed by: Kuldip Dill MD 11/27/2023 02:13 PM EDT RP Dictated By: Kuldip Dill MD Signed By: <Electronically signed by Kuldip Dill MD in OV> 11/27/23 1413 DD/ 1155 TD/TT: 11/23/23 1205 Freight Receiver: STEVE Procedure Note Donotuseinterpreter, Image - 11/27/[address] [address] XRay Report Signed Patient: Lakisha Hearn AMR#: [id number] : 1965Acct:[id number] Age/Sex: 58 / FADM Date: 11/23/23 Loc: [facility] Attending Dr: Jimmy Boo MD Ordering Physician: Jimmy Boo MD Date of Service: 11/23/23 Procedure(s): XR finger RT min 2V Accession Number(s): [id number] cc: Jimmy Boo MD EXAMINATION: XR FINGER, [...] unremarkable. XR/XR finger RT min 2V IMPRESSION: Obvj-hu-nufktvlb osteoarthritis of the first carpometacarpal joint with degenerative changes slightly progressed compared with February 2019 Electronically signed by: Kuldip Dill MD 11/27/2023 02:13 PM EDT RP Dictated By: Kuldip Dill MD Signed By: <Electronically signed by Kuldip Dill MD inOV> 11/27/23 1413 DD/ 1155 TD/TT: 11/23/23 1205 Freight Receiver: STEVE Jimmy Boo MD IMG XR PROCEDURES Final Res ult documented in this encounter Visit Diagnoses Diagnosis Herpes zoster without complication- Primary documented in this encounter Care Teams Building Insulation Supervisor Relationship Specialty Start Date End Date Jimmy Boo MD [address] [place] [id number] PCP - General Internal Medicine 05/03/13 documented as of this encounter
--- OUTSIDE RECORDS SUMMARY | 2025-01-25 15:00 | XMS_ITS | Encounter Summary ---
Author Organization [employer] [facility] Address [address] [facility] 7 [place] [address] Care Team Providers Care Signs Sales Representative Name Role Phone Jimmy Boo MD Primary Care Provider [phone] Encounter Details Date Type Department Care Team (Latest Contact Info) Description 03/14/2020 Abstract [facility] CONVERSIONS Dental, Provider, DDS Social History [...] 2:15 PM EST Office Visit [facility] ADULT DENTAL [address] [place] [address] Raza Boo documented as of this encounter Visit Diagnoses Not on filedocumented in this encounter Care Teams Signs Sales Representative Relationship Specialty Start Date End Date Jimmy Boo MD [address] [place] [address] PCP - General Internal Medicine 05/03/13 documented as of this encounter
--- OUTSIDE RECORDS SUMMARY | 2025-01-25 15:01 | XMS_ITS | Clinical Summary ---
Author Organization [employer] Address [address] [place] [address] 7[address] [place] [address] Care Team Providers Care Technical Engineer Name Role Phone Jimmy Boo MD Primary Care Provider [phone] Allergies Active Allergy Reactions Criticality Noted Date Comments Honey Bee Venom 08/13/2013 Iodinated Contrast Media Angioedema 12/08/2017 Other reaction(s): Pruritic rash Pineapple 01/20/2024 Sulfa Antibiotics 04/10/2018 Topiramate 08/05/2011 Other reaction(s): Trouble Breathing Medications * This document contains information received from the source organization and may not represent a complete record from that organization. B Complex-Biotin- FA (B-100 TR) tablet controlled-rele ase Take 1 tablet by mouth in the morning. 1 Active sodium chloride (Veguita) 0.65 % nasal spray Administer 2 sprays into affected nostril(s) every 6 (six) hours. 2 Active zoster vaccine-recombi nant adjuvanted (Shingrix) 50 MCG/0.5ML vaccine Inject 0.5 mL into the shoulder, thigh, or buttocks. 1 Active Sod Fluoride-Potass ium Nitrate 1.1-5 % paste Apply a smear of the paste on the brush, and brush twice daily. 112 g 4 Active Additional Information Patient not taking.Reported on 08/18/2023 Diclofenac Sodium 1 % gelIndications: Chronic pain of right thumb,Muscle spasm To apply to the affected area 3 times a day 100 g 1 4 Active pseudoephedrine (Sudafed) 30 MG tabletIndicatio ns:Ear pressure, bilateral Take 1 tablet (30 mg) by mouth every 4 (four) hours if needed for congestion for up to 10 days. 30 tablet 4 Active Sodium Fluoride 1.1 % cream [place] teeth for 2 minutes, morning and night. Spit, do not rinse. Do not eat or drink anything for 30 minutes following use. 112 g 3 4 Active fexofenadine (Meliza) 180 MG tabletIndicatio ns:Ear pressure, bilateral TAKE 1 TABLET BY MOUTH EVERY DAY IF NEEDED FOR ALLERGIES 90 tablet 4 Active Diclofenac Sodium 1 % gelIndications: Acute midline low back pain without sciatica To apply to the affected area 3 times a day 100 g 5 Active Sodium Fluoride 5000 PPM 1.1 % gel APPLY A SMEAR OF THE TOOTHPASTE ON TOOTHBRUSH. BRUSH TWICE DAILY. SPIT, DO NOT RINSE. 100 g 5 Active albuterol 108 (90 Base) MCG/ACT inhalerIndicati ons:SOB (shortness of breath) INHALE 2 PUFFS BY MOUTH EVERY 4 TO 6 HOURS NEEDED 18 g 3 5 Active Sodium Fluoride (PreviDent 5000 Booster Plus) 1.1 % paste Apply a smear of paste on the brush; brush thoroughly twice daily. Spit, do not rinse. 112 g 2 5 Active zolpidem (Ambien) 10 MG tabletIndicatio ns:Primary insomnia TAKE 1 TABLET BY MOUTH EVERYDAY AT BEDTIME 30 tablet 5 Active Active Problems Problem Noted Date Diagnosed Date Right hand pain 12/19/2024 Diverticulosis of colon 06/21/2023 Malignant neoplasm of breast 06/21/2023 Anemia 08/13/2013 Asthma 08/13/2013 Gastroesophageal reflux disease 10/21/2011 Depressive disorder 08/05/2011 Multiple sclerosis 08/05/2011 Encounters Date Type Department Care Team Description 01/25/2025 Refill [facility] [address] [facility] [place] [address] Jimmy Boo MD Primary insomnia 01/11/2025 Orders Only GENERIC EXTERNAL DATA DEPARTMENT Provider, Generic External Data 01/10/2025 Telephone [facility] [address] [facility] [place] [address] Jimmy Boo MD Nurse Triage 01/01/2025 Results Follow-Up [facility] [address] [place] [phone] Subha Kellogg, YVONNE US Pelvis Limited 12/31/2024 Orders Only [facility] [address] [place] [address] Jimmy Boo MD Subcutaneous nodule (Primary Dx); Chronic pain of right thumb 12/28/2024 Orders Only [facility] [address] [place] [address] Jimmy Boo MD 12/24/2024 Telephone [facility] [address] [place] [phone] Luis Guzman DDS scripted toothpaste 12/24/[address] [address] Jimmy Boo MD Primary insomnia 12/19/2024 9:00 AM EDT Office Visit [facility] [address] [place] [address] Jimmy Boo MD Right hand pain (Primary Dx); Subcutaneous nodule 12/19/2024 Travel 12/12/2024 Patient Outreach [address] [address] Jimmy Boo MD Pre-visit Planning ([facility] screening completed on 05/18/24) 11/26/2024 Refill [facility] [address] [place] [address] Jimmy Boo MD Primary insomnia from Last 3 Months Immunizations [...] 04/01/2025 2:15 PM EST Office Visit [facility] [address] [facility] [place] [facility] [place] [address] Raza Boo Health Maintenance Due Date Last Done Comments CT Colonography 1965 FIT DNA/Cologuard 1965 FIT 1965 FOBT 1965 Sigmoidoscopy 1965 Hepatitis B Vaccines (1 of 3 - 19+ 3-dose series) 1984 Pneumococcal Vaccine: 50+ Years (2 of 2 - PCV) 11/26/2012 11/27/2011 Zoster Vaccines (2 of 3) 06/18/2016 04/23/2016 Cervical Cancer Screening 01/23/2024 HPV/Cotest 01/23/2024 01/22/2021, 080 08/2019, 08/15/2018 Pap Smear 01/23/2024 01/22/2021, 11/07/2019 [...] Name Priority Date/Time Associated Diagnosis Comments CT ABDOMEN PELVIS WO CONTRAST Routine 01/11/2025 4:00 PM EDT URINALYSIS WITH REFLEX MICROSCOPIC Routine 01/11/2025 1:55 PM EDT MAGNESIUM Routine 01/11/2025 1:42 PM EDT HCG, TOTAL, QN Routine 01/11/2025 1:42 PM EDT LIPASE Routine 01/11/2025 1:42 PM EDT BASIC METABOLIC PANEL Routine 01/11/2025 1:42 PM EDT HEPATIC FUNCTION PANEL Routine 01/11/2025 1:42 PM EDT CBC WITH AUTO DIFFERENTIAL Routine 01/11/2025 1:42 PM EDT US PELVIS LIMITED Routine 12/29/2024 3:4 9 PM EDT XR HAND 3+ VIEWS RIGHT Routine 12/19/2024 10:14 AM EDT Right hand pain PROPHYLAXIS - ADULT Routine 09/27/2024 3 :00 PM EDT PERIODIC ORAL EVALUATION - ESTABLISHED PATIENT Routine 09/27/2024 3:00 PM EDT INTRAORAL - COMPLETE SERIES OF [...] Recently Relevant to Health Maintenance Results * CT Abdomen Pelvis w/o Contrast (01/11/2025 4:00 PM EDT) Anatomical Region Laterality Modality Body, Pelvis, Abdomen Computed T omography 01/11/2025 4:00 PM EDT Narrative 01/11/2025 5:10 PM EDT [address] [address] [address] Scan Report Signed Patient: Lakisha Hearn MR#: [id number] : 1965 Acct:[id number] Age/Sex: 59 / F ADM Date: 01/11/25 Loc: HO.ED Attending Dr: Ordering Physician: Ghada Chen Date of Service: 01/11/25 Procedure(s): CT abdomen pelvis wo IV con Accession Number(s): [id number] cc: Jimmy Boo MD; Ghada Chen Report Number: [id number]: Total DLP = 330.00 mGy-cm Reason for Exam: RLQ abd pain, diarrhea EXAMINATION: CT ABDOMEN PELVIS WITHOUT IV CONTRAST HISTORY: RLQ abd pain, diarrhea COMPARISON: Previous CT of the abdomen and pelvis April 2023 and abdominal MRI January 2020 TECHNIQUE: CT scan of the abdomen and pelvis was performed without contrast using standard departmental protocol. Coronal and sagittal reformatted images were generated and reviewed. This CT exam was performed with one or more of the following dose reduction techniques: automated exposure control, adjustment of the mA and/or kV according to patient size, use of iterative reconstruction technique. DLP: 330 mGy-cm FINDINGS: LOWER CHEST: The visualized lung bases are clear. There is no pleural effusion. CARDIOVASCULATURE: The heart is normal in size. There is no pericardial effusion. LIVER: Small hypodensity in the right lobe segment 7 axial image 14 and left lobe segment 3 axial image 17 series 3. These are similar to prior exams and found to represent small cysts on liver MRI. Stable 8 mm low-attenuation lesion in the left lobe axial image 17 series 3. This was found to represent a hemangioma on liver MRI. Liver otherwise unremarkable. GALLBLADDER / BILE DUCTS: The gallbladder is unremarkable. There is no intra or extrahepatic biliary ductal dilatation. SPLEEN: The spleen is normal in size and has an unremarkable unenhanced appearance. PANCREAS: The pancreas has an unremarkable unenhanced appearance. ADRENAL GLANDS: Unremarkable. KIDNEYS/RETROPERITONEUM: No renal calculi are identified. There is no hydronephrosis. LYMPH NODES: No retroperitoneal lymphadenopathy is identified in the abdomen or pelvis. VASCULATURE: The abdominal aorta is normal in caliber. MESENTERY/PERITONEUM: No free fluid. No masses. There is no free intraperitoneal gas. STOMACH: Normal SMALL BOWEL: The small bowel is normal in caliber. COLON: The colon is unremarkable. APPENDIX: Normal. URINARY BLADDER/PELVIC ORGANS: The urinary bladder is unremarkable. No pelvic mass. BONES / SOFT TISSUES: No suspicious bony or soft tissue abnormalities. CT/CT abdomen pelvis wo IV con IMPRESSION: No cause of right lower quadrant pain seen. The appendix is normal. Stable low-attenuation liver lesions from prior exams. Electronically signed by: Samira Clemente MD 01/11/2025 05:07 PM EDT RP Dictated By: Samira Clemente MD Signed By: <Electronically signed by Samira Clemente MD in OV> 01/11/25 1707 DD/ 1600 TD/TT: 01/11/25 1607 Switch Foreman: DREW Procedure Note Donotuseinterpreter, Image - 01/11/[address] [place] [address] [address] Scan Report Signed Patient: Lakisha Hearn AMR#: [id number] : 1965Acct:[id number] Age/Sex: 59 / FADM Date: 01/11/25 Loc: HO.ED Attending Dr: Ordering Physician: Ghada Chen Date of Service: 01/11/25 Procedure(s): CT abdomen pelvis wo IV con Accession Number(s): [id number] cc: Jimmy Boo MD; Ghada Chen Report Number: [id number]: Total DLP = 330.00 mGy-cm Reason for Exam: RLQ abd pain, diarrhea EXAMINATION: CT ABDOMEN PELVIS WITHOUT IV CONTRAST HISTORY: RLQ abd pain, diarrhea COMPARISON: Previous CT of the abdomen and pelvis April 2023 and abdominal MRI January 2020 TECHNIQUE: CT scan of the abdomen and pelvis was performed without contrast using standard departmental protocol. Coronal and sagittal reformatted images were generated and reviewed. This CT exam was performed with one or more of the following dose reduction techniques: automated exposure control, adjustment of the mA and/or kV according to patient size, use of iterative reconstruction technique. DLP: 330 mGy-cm FINDINGS: LOWER CHEST: The visualized lung bases are clear. There is no pleural effusion. CARDIOVASCULATURE: The heart is normal in size. There is no pericardial effusion. LIVER: Small hypodensity in the right lobe segment 7 axial image 14 and left lobe segment 3 axial image 17 series 3. These are similar to prior exams and found to represent small cysts on liver MRI. Stable 8 mm low-attenuation lesion in the left lobe axial image 17 series 3. This was found to represent a hemangioma on liver MRI. Liver otherwise unremarkable. GALLBLADDER / BILE DUCTS: The gallbladder is unremarkable. There is no intra or extrahepatic biliary ductal dilatation. SPLEEN: The spleen is normal in size and has an unremarkable unenhanced appearance. PANCREAS: The pancreas has an unremarkable unenhanced appearance. ADRENAL GLANDS: Unremarkable. KIDNEYS/RETROPERITONEUM: No renal calculi are identified. There is no hydronephrosis. LYMPH NODES: No retroperitoneal lymphadenopathy is identified in the abdomen or pelvis. VASCULATURE: The abdominal aorta is normal in caliber. MESENTERY/PERITONEUM: No free fluid. No masses. There is no free intraperitoneal gas. STOMACH: Normal SMALL BOWEL: The small bowel is normal in caliber. COLON: The colon is unremarkable. APPENDIX: Normal. URINARY BLADDER/PELVIC ORGANS: The urinary bladder is unremarkable. No pelvic mass. BONES / SOFT TISSUES: No suspicious bony or soft tissue abnormalities. CT/CT abdomen pelvis wo IV con IMPRESSION: No cause of right lower quadrant pain seen. The appendix is normal. Stable low-attenuation liver lesions from prior exams. Electronically signed by: Samira Clemente MD 01/11/2025 05:07 PM EDT Dictated By: Samira Clemente MD Signed By: <Electronically signed by Samira Clemente MD in OV> 01/11/25 1707 DD/ 1600 TD/TT: 01/11/25 1607 Switch Foreman: DREW [facility] External Provider IMG CT PROCEDURES Final Result * Urinalysis w/reflex microscopic (01/11/2025 1:55 PM EDT) Color Urine Yellow [facility] Appearance Urine Clear [facility] PH 5.5 5.0 - 9.0 [facility] Glucose Urine UA Negative Negative mg/dL [facility] Urine Blood Negative Negative [facility] Specific Anza - Urine 1.020 1.005 - 1.025 [facility] Urine Protein Negative Neg-Trace mg/dL [facility] Urine Ketones Trace Negative mg/dL [facility] Nitrite Urine Negative Negative [facility] Leukocyte Esterase Urine Negative Negative [facility] 01/11/2025 1:55 PM EDT 01/11/2025 2:00 PM EDT Narrative [facility] - 01/11/2025 2:07 PM EDT [id number], Clean Catch us Generic External Data Provider LAB URINE ORDERAB LES Final Result [facility] [address] [place] [address] [phone] * (ABNORMAL) CBC auto differential (01/11/2025 1:42 PM EDT) White Blood Count 5.6 4.8 - 10.8 X10*3/uL [facility] Red Blood Count 4.71 4.20 - 5.50 X10*6/uL [facility] Hemoglobin 14.7 12.0 - 16.0 g/dl [facility] Hematocrit 43.6 37.0 - 47.0 % [facility] Mean Corpuscular Volume 92.6 80.0 - 98.0 fL [facility] Mean Corpuscular Hemoglobin 31.2 27.0 - 33.0 pg [facility] Mean Corpuscular HGB Conc 33.7 31.0 - 35.0 g/dl [facility] Red Cell Distribution Width 12.4 11.0 - 16.0 % [facility] Platelet Count 213 160 - 400 X10*3/uL [facility] Mean Platelet Volume 9.1(L) 9.4 - 12.3 fL [facility] Neutrophils Percent Auto 69.6 45 - 73 % [facility] Imm Gran Pct Auto 0.2 0.0 - 0.4 % [facility] Lymphocytes Percent Auto 19.4(L) 20 - 40 % [facility] Monocytes Percent Auto 9.2 2 - 11 % [facility] Eosinophils Percent Auto 1.1 0 - 4 % [facility] Basophils Percent Auto 0.5 0 - 2 % [facility] NRBC Pct Auto 0.0 0.0 - 0.2 /100WBC [facility] Neutrophils Absolute Auto 3.9 2.0 - 8.3 x10*3/uL [facility] Imm Gran Abs Auto 0.01 0.00 - 0.03 X10*3/uL [facility] Lymphocytes Absolute Auto 1.1(L) 1.2 - 4.9 X10*3/uL [facility] Monocytes Absolute Auto 0.5 0.1 - 1.2 X10*3/uL [facility] Eosinophils Absolute Auto 0.1 0.0 - 0.4 X10*3/uL [facility] Basophils Absolute Auto 0.0 0.0 - 0.2 X10*3/uL [facility] NRBC Abs Auto 0.000 0.0 - 0.012 X10*3/uL [facility] 01/11/2025 1:42 PM EDT 01/11/2025 1:45 PM EDT us Generic External Data Provider LAB BLOOD ORDERAB LES Final Result [facility] [address] [place] [phone] * hCG, Total, Quantitative (01/11/2025 1:42 PM EDT) HCG Quantitative <2 mIU/mL [facility] Comment:Weeks post LMP Appro ximate hCG(Last Menstrual Period) Range (mIU/ml)3 - 4 weeks 9 - 1304 - 5 weeks 75 - 2,6005 - 6 weeks 850 - 20,8006 - 7 weeks 4000 - 100,2007 - 12 weeks 11,500 - 289,66986 - 16 weeks 18,300 - 137,81487 - 29 weeks (2nd trimester) 1,400 - 53,76430 - 41 weeks (3rd trimester) 940 - 60,000The [employer] B- hCG assay is used for the early detection ofpregnancy; it cannot be used to diagnose any conditionunrelated to . If a B-hCG level is not supportedby the clinical evidence, results should be confirmed by analternative method (qualitative urine hCG, for example). 01/11/2025 1:42 PM EDT 01/11/2025 1:45 PM EDT Generic External Data Provider LAB BLOOD ORDERAB LES Final Result Performing Organization Address [facility] Co de Phone Number [facility] [address] [place] [phone] * Magnesium (01/11/2025 1:42 PM EDT) Magnesium 2.1 1.6 - 2.6 mg/dL [facility] 01/11/2025 1:42 PM EDT 01/11/2025 1:45 PM EDT [facility] [place] LAB BLOOD ORDERAB LES Final Result Performing Organization Address [facility] Phone Number [facility] [address] [place] [phone] * Lipase (01/11/2025 1:42 PM EDT) Lipase 24 8 - 78 U/L [facility] 01/11/2025 1:42 PM EDT 01/11/2025 1:45 PM EDT Generic External Data Provider LAB BLOOD ORDERAB LES Final Result Performing Organization Address [facility] Phone Number [facility] [address] [place] [phone] * Hepatic Function Panel (01/11/2025 1:42 PM EDT) Bilirubin, Total 0.5 0.0 - 1.0 mg/dL [facility] Bilirubin, Direct 0.2 0.0 - 0.5 mg/dL [facility] Aspartate Amino Transferase 20 5 - 31 U/L [facility] Alanine Aminotransferase 14 0 - 31 U/L [facility] Total Protein 7.0 6.5 - 8.0 g/dL [facility] Albumin Level 4.6 3.5 - 5.0 g/dL [facility] Alkaline Phosphatase 78 39 - 117 U/L [facility] 01/11/2025 1:42 PM EDT 01/11/2025 1:45 PM EDT us Generic External Data Provider LAB BLOOD ORDERAB LES Final Result [facility] [address] [place] [phone] * (ABNORMAL) Basic Metabolic Panel (01/11/2025 1:42 PM EDT) Sodium 140 135 - 145 mmol/L [facility] Potassium 4.4 3.3 - 5.1 mmol/L [facility] Chloride 105 96 - 108 mmol/L [facility] Carbon Dioxide 29 22 - 29 mmol/L [facility] Anion Gap 10(L) 12 - 20 [facility] Urea Nitrogen (BUN) 12 9 - 16 mg/dL [facility] Creatinine, Serum 0.66 0.5 - 1.4 mg/dL [facility] Creatinine Clr Calc Pharmacy 68.9 [facility] Comment:Provided height and weight: 165.1 cm,47.536 kg.eGFR (calculated from the MDRD study equation) and eCrCl(calculated from the Cockcroft-Gault equation) are based ondifferent parameters and may not yield comparable results.If eCrCl result is absurd, please check patient'sheight/weight. Estimated Glomerular Filt Rate >60 [facility] Comment:Chronic Kidney Disea se: Estimated GFR < 60 mL/min/1.64q8Ksgcrj Kidney Disease: Estimated GFR < 15 mL/min/1.73m2 Glucose 91 60 - 115 mg/dL [facility] Calcium 9.7 8.4 - 10.2 mg/dL [facility] 01/11/2025 1:42 PM EDT 01/11/2025 1:45 PM EDT us Generic External Data Provider LAB BLOOD ORDERAB LES Final Result Performing Organization Address City/State/[facility] Co de Phone Number [facility] [address] [place] [phone] * US Pelvis Limited (12/29/2024 3:49 PM EDT) Anatomical Region Laterality Modality Pelvis Ultrasound 12/29/2024 3:49 PM EDT Narrative 12/29/2024 3:50 PM EDT [address] [address] Ultrasound Report Signed Patient: Lakisha Hearn MR#: [id number] : 1965 Acct:[id number] Age/Sex: 59 / F ADM Date: 12/28/24 Loc: .US Attending Dr: Jimmy Boo MD Ordering Physician: Jimmy Boo MD Date of Service: 12/28/24 Procedure(s): US pelvic limited Accession Number(s): [id number] cc: Jimmy Boo MD Reason for Exam: SUBCUTANEOUS NODULE,RT INGUINA /PERINEAL AREA CLINICAL HISTORY: SUBCUTANEOUS NODULE,RT INGUINA PERINEAL AREA US pelvis limited nonvascular Comparison: None Findings: Ultrasound the area of clinical concern right labia demonstrates a hypoechoic superficial lesion slightly hyperemic measuring 2.6 x 1.1 x 0.6 cm. This may be inflammatory in nature no drainable fluid collection is demonstrated underlying mass not excluded. MRI may be of further diagnostic value with contrast. Impression: Focal possible inflammatory process in the right labia rather than underlying mass which can not be entirely excluded. Clinical correlation is strongly advised. Contrast-enhanced MRI may be of further diagnostic value. This document has been electronically signed by: Jarad Guan MD on 12/29/2024 15:49:36 Dictated By: Jarad Guan MD Signed By: <Electronically signed by Jarad Guan MD in OV> 12/29/24 1550 DD/ 1549 TD/TT: 12/29/24 154 Switch Foreman: Procedure Note Donotuseinterpreter, Image - 12/29/2024 [place] [address] Ultrasound Report Signed Patient: Lakisha Hearn AMR#: [id number] : 1965Acct:[id number] Age/Sex: 59 / FADM Date: 12/28/24 Loc: HO.US Attending Dr: Jimmy Boo MD Ordering Physician: Jimmy Boo MD Date of Service: 12/28/24 Procedure(s): US pelvic limited Accession Number(s): [id number] cc: Jimmy Boo MD Reason for Exam: SUBCUTANEOUS NODULE,RT INGUINA /PERINEAL AREA CLINICAL HISTORY: SUBCUTANEOUS NODULE,RT INGUINA PERINEAL AREA US pelvis limited nonvascular Comparison: None Findings: Ultrasound the area of clinical concern right labia demonstrates a hypoechoic superficial lesion slightly hyperemic measuring 2.6 x 1.1 x 0.6 cm. This may be inflammatory in nature no drainable fluid collection is demonstrated underlying mass not excluded. MRI may be of further diagnostic value with contrast. Impression: Focal possible inflammatory process in the right labia rather than underlying mass which can not be entirely excluded. Clinical correlation is strongly advised. Contrast-enhanced MRI may be of further diagnostic value. This document has been electronically signed by: Jarad Guan MD on 12/29/2024 15:49:36 Dictated By: Jarad Guan MD Signed By: <Electronically signed by Jarad Guan MD in OV> 12/29/24 1550 DD/ 1549 TD/TT: 12/29/24 154 Switch Foreman: us Jimmy Boo MD IMG US PROCEDURES Edited Re sult - Final * XR Hand 3+ Views Right (12/19/2024 10:14 AM EDT) Anatomical Region Laterality Modality Upper Extremities, Hand Right Radiogra phic Imaging 12/19/2024 10:1 4 AM EDT Narrative 12/19/2024 10:24 AM EDT [address] [address] XRay Report Signed Patient: Lakisha Hearn MR#: [id number] : 1965 Acct:[id number] Age/Sex: 59 / F ADM Date: 12/19/24 Loc: [facility] Attending Dr: Jimmy Boo MD Ordering Physician: Jimmy Boo MD Date of Service: 12/19/24 Procedure(s): XR hand RT min 3V Accession Number(s): [id number] cc: Jimmy Boo MD Reason for Exam: [...] 12/19/24 1021 DD/ 1014 TD/TT: 12/19/24 1017 Switch Foreman: Procedure Note Donotuseinterpreter, Image - 12/19/[address] [address] XRay Report Signed Patient: Lakisha Hearn AMR#: [id number] : 1965Acct:[id number] Age/Sex: 59 / FADM Date: 12/19/24 Loc: [facility] Attending Dr: Jimmy Boo MD Ordering Physician: Jimmy Boo MD Date of Service: 12/19/24 Procedure(s): XR hand RT min 3V Accession Number(s): [id number] cc: Jimmy Boo MD Reason for Exam: [...] 12/19/24 1021 DD/ 1014 TD/TT: 12/19/24 1017 Switch Foreman: us Jimmy Boo MD IMG XR PROCEDURES Edited Re sult - Final * Mammography (01/27/2023) Mammogram negative Anatomical Region Laterality Modality Other Narrative 01/27/2023 Bi rads -negative us Jimmy Boo MD HEALTH MAINTENANCE Final Re sult * Hepatitis C Antibody Reflex (11/09/2022 1:51 PM EDT) Hepatitis C Antibody Nonreactive Nonreactive [facility] Comment:Antibodies to HCV no t detected; does not exclude early acuteHCV infection. 11/09/2022 1:51 PM EDT 11/09/2022 5:49 PM EDT Venecia Kevinvinhmarilin [facility] LAB BLOOD ORDERABLES Rach l Result Performing Organization Address [facility]/ZIP Co de Phone Number [facility] [address] [place] [phone] * HIV Ab/Ag ([place] [facility]) (11/09/2022 1:51 PM EDT) HIV AB/AG Nonreactive Nonreactive [facility] Comment:HIV-1 p24 Ag and/or HIV-1/HIV-2 Ab not detected.A test result that is nonreactive does not exclude thepossibility of exposure to or infection with HIV-1 and/orHIV-2. Nonreactive results in this assay for individualswith prior exposure to HIV-1 and/or HIV-2 may be due toantigen and antibody levels that are below the limit ofdetection of this assay.The [employer] Statistical Technician HIV Ag/Ab Combo assay result andsupplemental assay results should be interpreted inconjunction with the patient's clinical presentation,history and other laboratory results. If the results areinconsistent with clinical evidence, additional testing issuggested to confirm the result. 11/09/2022 1:51 PM EDT 11/09/2022 5:49 PM EDT [facility] LAB BLOOD ORDERABLES Rach l Result Performing Organization Address City/[facility]/ZIP Co de Phone Number [facility] [address] [place] [address] [phone] * Hm Colonoscopy (06/04/2022) Colonoscopy Normal Normal 06/04/2022 Jacey Donnelly - 06/04/2022 2:23 PM EST Recommended 5 year follow up due to family hx of cancer ( see scanned report ) Historical Provider HEALTH MAINTENANCE Final Result * THINPREP TIS PAP AND HPV mRNA E6/E7 REFLEX HPV 16,18/45 (01/22/2021 11:53 AM EDT) Clinical Information: None given [facility] COMMENT SEE COMMENT [facility]OUNDAT[facility] ON [...] has been evaluated with computer assisted technology. [facility] Sanitation Laborer: SEE COMMENT [facility] Comment: DCR, CT(ASCP) CT screening location: [place] [address] HPV nRNA E6/E7 Not Detected Not Detected [facility] Comment: Methodology: Housefellow-Mediated Amplification This assay detects E6/E7 viral messenger RNA (mRNA) from 14 high-risk HPV types (16,18,31,33,35,39,45,51,52,56,58,59,66,68). The analytical performance characteristics of this assay have been determined by [employer]. The modifications have not been cleared or approved by the FDA. This assay has been validated pursuant to the CLIA regulations and is used for clinical purposes. For additional information, please refer to http://education.[employer]/faq/UCA609u0 (This link if provided for information/ educational purposes only.) Interpretation/Res ult: SEE COMMENT [facility] Comment: Negative for intraepithelial lesion or malignancy. Atrophic pattern; predominantly parabasal cells LMP: NONE [facility] Prev. BX: NONE [facility] Prev. PAP: LEDA HPV+ 2020 NEG [facility] SOURCE: None given [facility] Statement Of Adequacy: SATISFACTORY FOR EVALUATION [facility] 01/22/2021 11:5 3 AM EDT Venecia Butcher CNM LAB PATHOLOGY ORDERABLES Final Result [facility] [address] from Last 3 Months or Most Recently Relevant to Health Maintenance Insurance [place] [id number] * Guarantor: Lakisha Hearn Account Type Relation to Patient Date of Phone Billing Address Personal/Family Self [address] Care Teams Technical Engineer Relationship Specialty Start Date End Date Jimmy Boo MD [address] [place] [phone] PCP - General Internal Medicine 05/03/13
--- OUTSIDE RECORDS SUMMARY | 2025-01-25 15:01 | XMS_ITS | Encounter Summary ---
Author Organization [employer] Address [address] [place] [address] 7 [place] [address] Care Team Providers Care Swabber Name Role Phone Jimmy Boo MD Primary Care Provider [phone] Reason for Visit * Reason Comments Med Refill Encounter Details Date Type Department Care Team ([facility] Contact Info) Description 06/23/2022 Refill [facility] [address] [place] [address] Jimmy Boo MD [address] [place] [address] Primary insomnia Social History Tobacco Use Types [...] Upcoming Encounters Date Type Department Care Team ([facility] Contact Info) Description 04/01/2025 2:15 PM EST Office Visit [facility] [address] [place] [address] Raza Boo documented as of this encounter Visit Diagnoses Diagnosis Primary insomnia Persistent disorder of initiating or maintaining sleep documented in this encounter Care Teams Swabber Relationship Specialty Start Date End Date Jimmy Boo MD [address] [place] [phone] PCP - General Internal Medicine 05/03/13 documented as of this encounter
--- OUTSIDE RECORDS SUMMARY | 2025-01-25 15:01 | XMS_ITS | Encounter Summary ---
Author Organization [employer] Address [address] [facility] 7 [place] [address] Care Team Providers Care Plumber'S Helper Name Role Phone Jimmy Boo MD Primary Care Provider [phone] Encounter Details Date Type Department Care Team ([facility] Contact Info) Description 08/17/[address] [facility] [address] [place], [place] [phone] Jimmy Boo MD [address] [place] [address] Social History Tobacco Use Types Packs/Day Years [...] Upcoming Encounters Date Type Department Care Team ([facility] Contact Info) Description 04/01/2025 2:15 PM EST Office Visit [facility] [address] [place] [address] Raza Boo documented as of this encounter [...] EDT Recommended 5 year follow up ( [facility] us Historical Provider HEALTH MAINTENANCE Final Result documented in this encounter Visit Diagnoses Not on filedocumented in this encounter Care Teams Plumber'S Helper Relationship Specialty Start Date End Date Jimmy Boo MD [address] [place] [phone] PCP - General Internal Medicine 05/03/13 documented as of this encounter
--- OUTSIDE RECORDS SUMMARY | 2025-01-25 15:01 | XMS_ITS | Clinical Summary ---
Author Organization [address] [facility] Address [address] [place] [address] Phone Care Team Providers Care Aerospace Stress Engineer Name Role Phone Jimmy Boo MD Primary Care Provider [phone] Allergies Active Allergy Reactions Criticality Noted Date Comments Adhesive Tape-Silicones 10/30/2024 Bee Venom Protein (Honey Bee) 11/29/2019 Iodinated Contrast Media Other 10/30/2024 Other 11/29/2019 Topiramate Other 08/05/2011 Trouble breathing Other reaction(s): Trouble Breathing Medications zolpidem (AMBIEN) 10 mg tablet Take 1 tablet (10 mg total) by mouth at bedtime. Max Daily Amount: 10 mg Active albuterol HFA (PROAIR HFA ; PROVENTIL HFA ; VENTOLIN HFA) 90 mcg/actuation inhaler Inhale 2 puffs by mouth if needed for wheezing or shortness of breath. 5 Active ibuprofen (ADVIL,MOTRIN) 600 mg tablet Take 400 mg by mouth 1 (one) time each day if needed. 4 01/24/20 25 Discontinu ed(Therapy completed) Encounters Date Type Department Care Team Description 01/23/2025 11:40 AM EDT Office Visit [facility] [address] [facility] [address] [place] [phone] Ton Prather MD Multiple sclerosis (Primary Dx); Other fatigue; Gait abnormality 10/30/2024 9:00 AM EDT Consult [facility] for [facility] [address] [address] [facility] [address] [place] [address] Ton Prather MD Multiple sclerosis ([facility] V24, [facility] V28) (Primary Dx); Other fatigue; Gait abnormality from Last 3 Months Surgical History Surgery Date Site/Laterality Comments OTHER SURGICAL HISTORY PROCEDURE: [place] EXC [place]THOL[place] GLAND/CYST; COMMENT: Vulva lipoma resection 06/2018 TUBAL LIGATION PROCEDURE: HISTORICAL TUBAL LIGATION OTHER SURGICAL HISTORY PROCEDURE: [place] CYSTOURETHROSCOPY W/INTERNAL URETHROTOMY; COMMENT: urethral diverticulum OTHER [...] with neck and trunk Anemia DX:Anemia Seizures ([facility] V24, [facility] V28) DX:Seizures ([facility]) Foot swelling DX:Foot swelling Multiple sclerosis DX:Multiple s clerosis ([facility]) Depression DX:Depression GERD (gastroesophageal reflu x disease) DX:GERD (gastroesophageal re flux disease) Asthma DX:Asthma Heart palpitations DX:Heart palp itations Mastodynia DX:Mastodynia History of breast cancer in female 11/25/2011 DX:History of breast cancer in female; COMMENT: Right IDC, pT1c N1a, ER/IL pos, Her2 neg, s/p partial mastectomy and [...] Pulse 64 01/23/2025 11:43 AM EDT Temperature 36.2 C (97.2 F) 10/30/2024 9:25 AM EDT Respiratory Rate - - Oxygen Saturation 99% 01/23/2025 11:43 AM EDT Inhaled Oxygen Concentration - - Weight 49.4 kg (109 lb) 01/23/2025 11:43 AM EDT Height 149.9 cm (4' 11 ) 01/23/2025 11:43 AM EDT Body Mass Index 22.02 01/23/2025 11:43 AM EDT Plan of Treatment Upcoming Encounters Date Type Department Care Team (Late st Contact Info) Description 03/27/2025 11:00 AM EST Office Visit [facility] [address] [facility] [address] [place] [phone] Ton Prather MD [address] [place] [address] Health Maintenance Due Date Last Done Comments Breast Cancer Screening 1965 Colorectal Cancer Screening: Colonoscopy 1965 COVID-19 Vaccine (#1) 1970 Hepatitis B Vaccines (1 of 3 - 19+ 3-dose series) 1984 Pneumococcal Vaccine: 50+ Years (2 of 2 - PCV) 11/26/2012 11/27/2011 RSV Immunization Adult Patients (1 - Risk 50-74 years 1-dose series) 08/12/2015 Zoster Vaccines (1 of 2) 06/18/2016 04/23/2016 HIV Screening 03/02/2022 Hepatitis C Screening 03/02/2022 Medicare Annual Wellness Visit 03/02/2022 Social Influencers of Health Screening 03/02/2022 Depression Screening 04/04/2024 Influenza Vaccine (#1) 2024 Cervical Cancer Screening: P ap Smear 05/10/2025 05/10/2022, 01/13/2021 DTaP,Tdap,and Td Vaccines (2 - Td or Tdap) 02/18/2029 02/18/2019 HIB Vaccines Aged Out No longer eligi [...] Routine 10/30/2024 10:25 AM EDT Multiple sclerosis ([facility] V24, [facility] V28) VARICELLA ZOSTER ANTIBODY IGG Routine 10/30/2024 10:25 AM EDT Multiple sclerosis ([facility] V24, [facility] V28) NEUROMYELITIS OPTICA, [id number] Routine 10/30/2024 10:25 AM EDT Multiple sclerosis ([facility] V24, [facility] V28) MYELIN OLIGODENDROCYTE GLYCOPROTEIN ANTIBODY WITH REFLEX TO TITER Routine 10/30/2024 10:25 AM EDT Multiple sclerosis ([facility] V24, [facility] V28) SJOGRENS ANTIBODIES, SSA AND SSB Routine 10/30/2024 10:25 AM EDT Multiple sclerosis ([facility] V24, [facility] V28) RHEUMATOID FACTOR Routine 10/30/2024 10: 25 AM EDT Multiple sclerosis ([facility] V24, [facility] V28) MATY IFA WITH TITER AND PATTERN Routine 10/30/2024 10:25 AM EDT Multiple sclerosis ([facility] V24, CMS/HCC V28) CBC AND DIFFERENTIAL Routine 10/30/2024 10:25 AM EDT Multiple sclerosis ([facility] V24, [facility] V28) CREATININE, SERUM Routine 10/30/2024 10: 25 AM EDT Multiple sclerosis ([facility] V24, [facility] V28) BUN Routine 10/30/2024 10:25 AM EDT Multiple sclerosis ([facility] V24, [facility] V28) BORRELIA BURGDORFERI ANTIBODY Routine 10/30/2024 10:25 AM EDT Multiple sclerosis ([facility] V24, [facility] V28) VITAMIN D 25 HYDROXY Routine 10/30/2024 10:25 AM EDT Multiple sclerosis ([facility] V24, [facility] V28) VITAMIN B12 Routine 10/30/2024 10:25 AM EDT Multiple sclerosis ([facility] V24, [facility] V28) PAP SMEAR Routine 05/10/2022 from Last 3 Months or Most Recently Relevant to Health Maintenance Results * Myelin oligodendrocyte glycoprotein antibody with reflex to titer (10/30/2024 10:25 AM EDT) [facility] [address] MOG Antibody, Cell-based IFA Negative Negative 11/02/2024 6:05 AM EDT [facility] Blood Venous blood specimen / Unknown Venipuncture / Unknown 10/30/2024 10:25 AM EDT 10/30/2024 10:25 AM EDT Narrative [facility] - 11/02/2024 6:05 AM EDT Test(s) [id number] Antibody, Cell-based IFA was developed and its performance characteristics determined by [facility]. It has not been cleared or approved by the Food and Drug Administration. Performed at: - [address] [id number] Podiatry Professor: Regine Drake MD, Phone: [phone] us Ton Prather MD LAB BLOOD ORDERABLES Fin al Result Performing Organization Address City/[facility]/ZIP Co de Phone Number [facility] * Sjogrens antibodies, SSA and SSB (10/30/2024 10:25 AM EDT) Sjogren's SS-A (Ro) Ab Quant 1 <20 units LAB CHEMISTRY METHOD 11/03/2024 1:[address] [facility] Sjogren's SS-A (Ro) Ab Negative Negative LAB CHEMISTRY METHOD 11/03/2024 1:[address] [facility] Sjogren's SS-B (La) Ab Quant 1 <20 units LAB CHEMISTRY METHOD 11/03/2024 1:[address] [facility] Sjogren's SS-B (La) Ab Negative Negative LAB CHEMISTRY METHOD 11/03/2024 1:[address] [facility] Blood Venous blood specimen / Unknown Venipuncture / Unknown 10/30/2024 10:25 AM EDT 10/30/2024 10:25 AM EDT us Ton Prather MD LAB BLOOD ORDERABLES Fin al Result Performing Organization Address [facility] Co de Phone Number [facility] [address] [place] [address], * Neuromyelitis optica, [id number] (10/30/2024 10:25 AM EDT) NMO IgG Autoantibodies <1.5 0.0 - 3.0 U/mL 11/05/2024 3:05 PM EDT [facility] Comment: Negative: 0.0 - 3.0 Positive: >3.0 Blood Venous blood specimen / Unknown Venipuncture / Unknown 10/30/2024 10:25 AM EDT 10/30/2024 10:25 AM EDT Narrative [facility] - 11/05/2024 3:05 PM EDT Performed at: [address] [id number] Podiatry Professor: Regine Drake MD, Phone: [phone] Ton Prather MD LAB BLOOD ORDERABLES Fin al Result [facility] * MATY IFA with titer and pattern (10/30/2024 10:25 AM EDT) Pathologist [facility] MATY Negative Negative 10/31/2024 10:[address] [facility] Blood Venous blood specimen / Unknown Venipuncture / Unknown 10/30/2024 10:25 AM EDT 10/30/2024 10:25 AM EDT Ton Prather MD LAB BLOOD ORDERABLES Fin al Result Performing Organization Address City/[facility]/ZIP Co de Phone Number [facility] [address] [place] [address], [place] [phone] * CBC auto differential (10/30/2024 10:25 AM EDT) [facility] [address] WBC 5.4 4.8 - 10.8 K/mcL LAB HEMETOLOGY METHOD 10/30/2024 2:[address] [facility] RBC 4.50 3.80 - 4.80 M/mcL LAB HEMETOLOGY METHOD 10/30/2024 2:[address] [facility] Hemoglobin 13.8 11.5 - 16.0 g/dL LAB HEMETOLOGY METHOD 10/30/2024 2:[address] [facility] Hematocrit 42.8 35.0 - 47.0 % LAB HEMETOLOGY METHOD 10/30/2024 2:[address] [facility] MCV 95.7 79.0 - 98.0 FL LAB HEMETOLOGY METHOD 10/30/2024 2:[address] [facility] MCH 30.9 27.0 - 32.0 pcg LAB HEMETOLOGY METHOD 10/30/2024 2:[address] [facility] MCHC 32.2 32.0 - 37.0 g/dL LAB HEMETOLOGY METHOD 10/30/2024 2:[address] [facility] RDW 12.7 11.0 - 15.0 % LAB HEMETOLOGY METHOD 10/30/2024 2:[address] [facility] Platelets 233 130 - 400 K/mcL LAB HEMETOLOGY METHOD [facility] MPV 10.2 7.0 - 11.0 FL LAB HEMETOLOGY METHOD 10/30/2024 2:[address] [facility] NRBC 0.0 <1.0 % LAB HEMETOLOGY METHOD [facility] NRBC Absolute 0.00 <0.10 K/mcL LAB HEMETOLOGY METHOD 10/30/2024 2:22 PM [facility] Neutrophils Relative 60.7 % LAB HEMETOLOGY METHOD [facility] Lymphocytes Relative 24.7 % LAB HEMETOLOGY METHOD 10/30/2024 2:[address] [facility] Monocytes Relative 11.8 % LAB HEMETOLOGY METHOD [facility]/30[facility] Eosinophils Relative 1.7 % LAB HEMETOLOGY METHOD 10/30/2024 2:22 PM [facility] Basophils Relative 0.7 % LAB HEMETOLOGY METHOD 10/30[facility]2024 [facility] Immature Granulocytes Relative 0.4 % LAB HEMETOLOGY METHOD 10/30/2024 2:[address] [facility] Neutrophils Absolute 3.30 1.50 - 7.00 K/[facility] LAB HEMETOLOGY METHOD 10/30/2024 2:[address] [facility] Lymphocytes Absolute 1.34 1.00 - 5.00 K/mcL LAB HEMETOLOGY METHOD 10/30/2024 2:[address] [facility] Monocytes Absolute 0.64 0.20 - 1.00 K/mcL LAB HEMETOLOGY METHOD 10/30/2024 2:[address] [facility] Eosinophils Absolute 0.09 0.00 - 0.50 K/mcL LAB HEMETOLOGY METHOD 10/30/2024 2:[address] [facility] Basophils Absolute 0.04 0.00 - 0.20 K/mcL LAB HEMETOLOGY METHOD 10/30/2024 2:[address] [facility] Immature Granulocytes Absolute 0.02 0.00 - 0.03 K/mcL LAB HEMETOLOGY METHOD 10/30/2024 2:[address] [facility] Blood Venous blood specimen / Unknown Venipuncture / Unknown 10/30/2024 10:25 AM EDT 10/30/2024 10:25 AM EDT Ton Prather MD LAB BLOOD ORDERABLES Fin al Result [facility] [address] [place] [address], * Borrelia burgdorferi antibody (10/30/2024 10:25 AM EDT) [facility] [address] [facility] Lyme Ab Negative Negative LAB CHEMISTRY METHOD 10/31/2024 9:[address] [facility] Comment: No laboratory evidence of [...] ORDERABLES Fin al Result Performing Organization Address [facility]/ZIP Co de Phone Number [facility] [address] [place] [address], * Creatinine (10/30/2024 10:25 AM EDT) Creatinine 0.69 0.50 - 1.10 mg/dL LAB CHEMISTRY METHOD 10/30/2024 3:[address] [facility] eGFR 100 >=60 mL/min/1. 73m2 LAB CHEMISTRY METHOD 10/30/2024 3:[address] [facility] Comment:Calculation based on the Chronic Kidney Disease Epidemiology Collaboration (CKD-EPI) equation refit without adjustment for race. Blood Venous blood specimen / Unknown Venipuncture / Unknown 10/30/2024 10:25 AM EDT 10/30/2024 10:25 AM EDT Ton Prather MD LAB BLOOD ORDERABLES Fin al Result Performing Organization Address [facility]/ZIP Co de Phone Number [facility] [address] [place] [address], [place] [phone] * Vitamin D 25 hydroxy (10/30/2024 10:25 AM EDT) Vit D, 25-Hydroxy 33.3 30.0 - 80.0 ng/mL LAB CHEMISTRY METHOD 10/30/2024 4:[address] [facility] Blood Venous blood specimen / Unknown Venipuncture / Unknown 10/30/2024 10:25 AM EDT 10/30/2024 10:25 AM EDT us Ton Prather MD LAB BLOOD ORDERABLES Fin al Result Performing Organization Address [facility] de Phone Number [facility] [address] [place] [address], * Rheumatoid factor (10/30/2024 10:25 AM EDT) Rheumatoid Factor <10.0 <15.0 I Unit/mL LAB CHEMISTRY METHOD 10/30/2024 3:[address] [facility] Blood Venous blood specimen / Unknown Venipuncture / Unknown 10/30/2024 10:25 AM EDT 10/30/2024 10:25 AM EDT us Ton Prather MD LAB BLOOD ORDERABLES Fin al Result Performing Organization Address [facility] de Phone Number [facility] [address] [place] [address], * Varicella zoster antibody IgG (10/30/2024 10:25 AM EDT) Pathologist [facility] Varicella IgG Positive Positive LAB CHEMISTRY METHOD 10/31/2024 9:[address] [facility] Varicella Zoster IgG 12.50 >=1.00 S/CO LAB CHEMISTRY METHOD 10/31/2024 9:[address] [facility] Blood Venous blood specimen / Unknown Venipuncture / Unknown 10/30/2024 10:25 AM EDT 10/30/2024 10:[address] [facility] - 10/31/2024 9:28 AM EDT Interpretation >= 1.00 S/CO is considered to be consistent with Immunity us Ton Prather MD LAB BLOOD ORDERABLES Fin al Result Performing Organization Address [facility]/ZIP Co de Phone Number [facility] [address] [place] [address], * BUN (10/30/2024 10:25 AM EDT) BUN 13 5 - 25 mg/dL LAB CHEMISTRY METHOD 10/30/2024 3:[address] [facility] Blood Venous blood specimen / Unknown Venipuncture / Unknown 10/30/2024 10:25 AM EDT 10/30/2024 10:25 AM EDT Ton Prather MD LAB BLOOD ORDERABLES Fin al Result Performing Organization Address [facility] Co de Phone Number [facility] [address] [place] [address], * Vitamin B12 (10/30/2024 10:25 AM EDT) Vitamin B-12 565 250 - 900 pcg/mL LAB CHEMISTRY METHOD 10/30/2024 3:[address] [facility] Blood Venous blood specimen / Unknown Venipuncture / Unknown 10/30/2024 10:25 AM EDT 10/30/2024 10:25 AM EDT Ton Prather MD LAB BLOOD ORDERABLES Fin al Result Performing Organization Address City/[facility]/ZIP Co de Phone Number [facility] [address] [place] [address], [place] [phone] * Pap smear (05/10/2022) 05/10/2022 Narrative HISTORICAL TESTING LAB RESULTING AGENCY - 05/21/2022 11:11 AM EST [id number] THINPREP PAP, IMAGED: ATYPICAL SQUAMOUS CELLS OF [...] Most Recently Relevant to Health Maintenance Insurance #[address] [place] [address] [facility] [employer] MEDICARE Member Subscriber Plan / Payer (Ef fective 2022-Present) Name:LAKISHA STEVENS Relation to Subscriber:Self Name:Lakisha Stevens Payer ID:[id number] Group ID:[id number] Type:Not on file Address: [place] [address] [place] [phone] Care Teams Aerospace Stress Engineer Relationship Specialty Start Date End Date Jimmy Boo MD [address] [place] [address] [place] PCP - General Internal Medicine 11/23/19
--- OUTSIDE RECORDS SUMMARY | 2025-01-25 15:01 | XMS_ITS | Patient Health Record ---
Author Organization [facility] Address [address] [place] [address] Care Team Providers Care Product Finisher Name Role Phone Jimmy Boo M.D. Primary Care Provider Un available Keyshawn Lopez Unavailable [phone] Allergies Allergen (clinical drug ingredient) Drug/Non Drug [...] at 5:00 p.m. the day before the procedure; Duration: 1 day 03/27/2022 Activ e Dulcolax (colon prep) 5 MG take at 3:00 p.m and 7:00p.m. Orally two tablets twice a day for one day; Duration: 1 day 03/27/2022 Active Immunizations Vaccine Route Administration Date Status Comme nts Influenza Unknown 03/17/2022 Refused Problems Problem Type SNOMED Code ICD Code Onset Dates Problem Status W/U Status Risk Notes Problem Screening for malignant neoplasm of colon (365088813) Encounter for screening for malignant neoplasm of colon (Z12.11) Active confirmed Problem Screening for malignant neoplasm of rectum (532335131) Encounter for screening for malignant neoplasm of rectum (Z12.12) Active confirmed Problem Family History of Cancer of Colon (Situation) (651962643) Family history of colon cancer (Z80.0) Active confirmed Problem Constipation (95755485) Constipation, unspecified constipation type (K59.00) Active confirmed Problem Diverticulosis of colon (709630028) Diverticulosis of colon (K57.30) Active confirmed Plan Of Treatment Future Test Test Name Order Date COLONOSCOPY 12/19/2015 COLONOSCOPY 03/17/2022 Insurance Providers Payer Name Payer Address Payer Phone Subscriber Number Group Number Insured Name Patient Relationship to Insured Coverage Start Date Coverage End Date [facility] [address] [place] [phone] [id number] PATRICIA DOOLEY Self - patient is the insured Medical (General) History Medical History History ICD Code Epilepsy--off seizure meds Multiple sclerosis Vertigo Denies UT,DM,CVA,Lung disease,renal dise ase Hx of breast cancer 2011--ri ght--lumpectomy, XRT , chemo--sees Dr. Samuel at [facility] x 3 Neg. colonoscopy in 2005, 06/2011, and 2016 Surgical History Surgery Date(Month/Year) Urethral diverticulum Right arm surgery BTL Exploratory laparoscopy Ear surgery for tubes Shoulder surgery--right shoulder 09/2015 Right breast cancer --lumpectomy Bone removed from left thumb Carpal tunnel on the left Cystoscopy 02/2022
--- OUTSIDE RECORDS SUMMARY | 2025-01-25 15:01 | XMS_ITS | Encounter Summary ---
Author Organization [employer] [facility] Address [address] [place] [address] 7 [place] [address] Care Team Providers Care Clinical Studies Specialist Name Role Phone Jimmy Boo MD Primary Care Provider [phone]- [phone] Encounter Details Date Type Department Care Team (Late Contact Info) Description 05/16/2023 Abstract [facility] ADULT DENTAL [address] [place] [address] Mary Jane Massey DMD Social History Tobacco [...] Description 04/01/2025 2:15 PM EST Office Visit [facility] ADULT DENTAL [address] [place] [address] Raza Boo documented as of this encounter Visit Diagnoses Not on filedocumented in this encounter Care Teams Clinical Studies Specialist Relationship Specialty Start Date End Date Jimmy Boo MD [address] [place] [address] PCP - General Internal Medicine 05/03/13 documented as of this encounter
--- OUTSIDE RECORDS SUMMARY | 2025-01-25 15:01 | XMS_ITS | Encounter Summary ---
Author Organization [employer] Address [address] [place] [address] 7 [place] [address] Care Team Providers Care First Aid Director Name Role Phone Jimmy Boo MD Primary Care Provider [phone]- [phone] Reason for Visit * Reason Comments Med Refill Encounter Details Date Type Department Care Team ([facility] Contact Info) Description 06/22/2022 Refill [facility] MED & PEDS [address] [place], [place] [phone] Jimmy Boo MD [address] [place] [address] Primary insomnia Social History Tobacco Use Types [...] Team ([facility] Contact Info) Description 04/01/2025 2:15 PM EST Office Visit [facility] ADULT DENTAL [address] [place] [address] Raza Boo documented as of this encounter Visit Diagnoses Diagnosis Primary insomnia Persistent disorder of initiating or maintaining sleep documented in this encounter Care Teams First Aid Director Relationship Specialty Start Date End Date Jimmy Boo MD [address] [place] [address] PCP - General Internal Medicine 05/03/13 documented as of this encounter
--- OUTSIDE RECORDS SUMMARY | 2025-01-25 15:01 | XMS_ITS | Encounter Summary ---
Author Organization [employer] Address [address] [place] [address] 7 [place] [address] Care Team Providers Care Head Cleaning Porter Name Role Phone Jimmy Boo MD Primary Care Provider [phone]- [phone] Reason for Visit * Reason Comments Med Refill Encounter Details Date Type Department Care Team ([facility] Contact Info) Description 06/19/2022 Refill [facility] MED & PEDS [address] [place] [address] Jimmy Boo MD [address] [place] [address] Primary insomnia Social History Tobacco Use Types [...] 2:15 PM EST Office Visit [facility] ADULT DENTAL [address] [place] [address] Raza Boo documented as of this encounter Visit Diagnoses Diagnosis Primary insomnia Persistent disorder of initiating or maintaining sleep documented in this encounter Care Teams Head Cleaning Porter Relationship Specialty Start Date End Date Jimmy Boo MD [address] [place] [address] PCP - General Internal Medicine 05/03/13 documented as of this encounter
--- OUTSIDE RECORDS SUMMARY | 2025-01-25 15:01 | XMS_ITS | Data Portability ---
Author Organization [employer] [facility], [facility] Address [address] [place] [address] Care Team Providers Care Chalk Molding Machine Operator Name Role Phone Unavailable OTHER HIM CCA OTHER Assessment Encounter Date Assessment Date Assessment LastModified by Organization Details LastModified Time 04/10/2024 04/10/2024 I provided real -time medical direction via phone for this encounter, and was available for additional phone based assistance as needed. I have reviewed the Assessment and Plan as documented by the Retail Leader. We discussed the diagnostic uncertainty of home [...] to call 911- verbalized understanding of instruction Not available 04/10/2024 17:16:10 Plan of Treatment Reminders Order Date Submit Date Provider Last Modified By Organization Details Last Modified Time Details Appointments None recorded. Lab None recorded. Referral None recorded. Procedures None recorded. Surgeries None recorded. Imaging None recorded. Medication Orders prednisone 20 mg tablet 2024 025 [email or web address] 0 Not available 14:39:14 prednisone 20 mg tablet 2024 025 [id number], [address] [facility] [place], [address], 14:39:17 Patient TargetsNo targets recorded. Patient InstructionsNo instructions recorded. Reason for Referral None Reported. Medical Equipment None Reported. Allergies Allergen ID Allergen Name Allergen Category Reaction Reaction Severity Criticality Documentation Date Start Date Code Code System Note Provider Name and Address Organization Details Recorded Time 89331 topiramat e medicatio n Not available Not available Not available 04/10/2024 91749 RxNorm Not Available [facility] - production 10:14:26 09826 Bactrim medicatio n Not available Not available Not available 04/10/2024 71933 9 RxNorm Not Available [facility] - production 10:14:26 86756 Iodinated contrast media (substanc e) medicatio n Not available Not available Not available 04/10/2024 05070 2003 SNOMED Cara Bauer MD [address] [place] [address],[address], [place], [address], [facility] 14:33:28 07474 tamoxifen medicatio n Not available Not available Not available 04/10/2024 25588 RxNorm Cara Bauer MD [address] [place] [address],[address], [place], [address], [facility] [facility] 14:33:55 Medications Name Sig Start Date Stop [...] Heart rate Respiratory rate Body weight Systolic And Diastolic Provider Name and Address Organization Details Last Updated DateTime 5 98.1 [degF] 99 % 99 % 149.86 cm 80 /min 18 /min 54751.1 2 g 147/94 mm[Hg] Not Available [facility] 5 14:14:44 Social History None recorded. Functional Status None recorded. Mental Status None recorded. Family History Nothing Reported. Medical History No medical history recorded. Gynecological HistoryNo gynecological history recorded. Obstetrics History GPAL:G 0 P 0 0 0 0 Past Encounters Encounter ID Performer Location Encounter Start Date Encounter Closed Date Diagnosis/Indication Diagnosis SNOMED-CT Code Diagnosis ICD10 Code Diagnosis IMO Codes Diagnosis Note [id number] Cara Bauer MD Main - [address] [address] 04/10/2024 14:14:38 04/10/2024 18:10:27 Atypical facial pain 11975486 G50.1 Possible trigeminal neuralgia/ discussed gabapentin with [...] Recorded Advance Directives Directive None Recorded Payers Insurance Date Sequence Insurance Name Policy Number Policy Gill Covered Member ID Gill Member ID Guarantor Name 04/28/[address] [facility] - DOS ON OR AFTER 2022 - DUAL ELIGIBLE - SKILLED NURSING OPTIONS AND ONE CARE (MEDICARE REPLACEMENT/AD VANTAGE - HMO) Lakisha Hearn [id number] Lakisha Hearn Notes Date Note Type Note Provider Name and Address Organization Details Recorded Time 04/10/2024 text/html ROS as noted in the HPI HPI: Patient with complaints of right sided face pain for 4-5 days. No fever, slight headache. Pain right jehovah's witness forehead eye and face.Recovered COVID March 2024 ...................... ...................... ...................... ...................... ...................... ...................... ......... [facility] Nurse Triage Notes (Malia Kent - YVONNE): Chief Complaints: Headache PMH: Multiple Sclerosis, Cigarette Smoker, Gastroesophageal Reflux Disease (GERD) PMH Reviewed at 04/10/2024:14 Allergies Reviewed at 04/10/2024 - 10:14 Comments: HPI reviewed Allergies BEE ...................... ...................... ...................... ...................... ...................... ...................... ......... Retail Leader Note From Kuldip Kidd: SC1 dispatched to [...] ...................... ...................... ...................... ...................... ...................... ...................... ......... [facility] Consulted: Cara Bauer ...................... ...................... ...................... ...................... ...................... ...................... ......... Disposition: Fulfilled SEGMD: Patient clearly reported to me she has a headache when she gets up in the am for months/ she describes that she has pain from her right lateral orbit to her right temporal /parietal area-it feels like heys-prk-mxkrlvn with a sharp component, but it does [...] not a diabetic. Cara Bauer MD [address] [facility],[address], [place], [address], MIGUEL - [employer], TAMIKO 04/10/2024 17:16:13 OBGyn Episode No OBEpisode recorded.
--- OUTSIDE RECORDS SUMMARY | 2025-01-25 15:01 | XMS_ITS | Encounter Summary ---
Author Organization [employer] Address [address] [place] [address] 7 [place] [address] Care Team Providers Care Assembler Semiconductor Name Role Phone Jimmy Boo MD Primary Care Provider [phone] Encounter Details Date Type Department Care Team ([facility] Contact Info) Description 06/21/2023 Orders Only [facility] MED & PEDS [address] [place], [place] [phone] Jimmy Boo MD [address] [place], [place] [phone] Primary insomnia Social History Tobacco Use Types [...] Upcoming Encounters Date Type Department Care Team ([facility] Contact Info) Description 04/01/2025 2:15 PM EST Office Visit [facility] ADULT DENTAL [address] [place], [place] [phone] Raza Boo documented as of this encounter Visit Diagnoses Diagnosis Primary insomnia Persistent disorder of initiating or maintaining sleep documented in this encounter Care Teams Assembler Semiconductor Relationship Specialty Start Date End Date Jimmy Boo MD [address] [place] [address] PCP - General Internal Medicine 05/03/13 documented as of this encounter
--- OUTSIDE RECORDS SUMMARY | 2025-01-25 15:01 | XMS_ITS | Encounter Summary ---
Author Organization [employer] Address [address] [facility] 7t [place] [address] Care Team Providers Care Crusher And Blender Operator Name Role Phone Jimmy Boo MD Primary Care Provider [phone] Encounter Details Date Type Department Care Team ([facility] Contact Info) Description 06/25/2022 Orders Only [facility]ED[facility] [address] [place], [place] [phone] Gray Barnes MD [address] [place], [place] [phone] Primary insomnia; SOB (shortness of breath) Social [...] 04/01/2025 2:15 PM EST Office Visit [facility] ADULT D[facility] [address] [place] [address] Raza Boo documented as of this encounter Visit Diagnoses Diagnosis Primary insomnia Persistent disorder of initiating or maintaining sleep SOB (shortness of breath) Shortness of breath documented in this encounter Care Teams Crusher And Blender Operator Relationship Specialty Start Date End Date Jimmy Boo MD [address] [place] [address] PCP - General Internal Medicine 05/03/13 documented as of this encounter
--- OUTSIDE RECORDS SUMMARY | 2025-01-25 15:01 | XMS_ITS | Encounter Summary ---
Author Organization [employer] [facility] Address [address] [place] [address] 7 [place] [address] Care Team Providers Care Plastic Sewer Name Role Phone Jimmy Boo MD Primary Care Provider [phone] Reason for Visit * Reason Onset Date Comments rct appt 02/17/2023 Encounter Details Date Type Department Care Team ([facility] Contact Info) Description 02/17/2023 Telephone [facility] ADULT DENTAL [address] [place] [address] Tricia Davis DDS rct appt Social History [...] Date Type Department Care Team ([facility] [address] Contact Info) Description 04/01/2025 2:15 PM EST Office Visit [facility] ADULT DENTAL [address] [place] [address] Raza Boo documented as of this encounter Visit Diagnoses Not on filedocumented in this encounter Care Teams Plastic Sewer Relationship Specialty Start Date End Date Jimmy Boo MD [address] [place] [address] PCP - General Internal Medicine 05/03/13 documented as of this encounter
--- OUTSIDE RECORDS SUMMARY | 2025-01-25 15:01 | XMS_ITS | Encounter Summary ---
Author Organization [employer] Address [address] [facility] [facility] [address] 7[address] [place] [address] Care Team Providers Care Human Resources Executive Name Role Phone Jimmy Boo MD Primary Care Provider [phone] Reason for Visit * Reason Comments Med Refill Encounter Details Date Type Department Care Team ([facility] Contact Info) Description 10/03/2023 Refill [facility] ADULT DENT[facility] [address] [place], [place] [phone] Mary Jane Massey DMD Social History Tobacco [...] 04/01/2025 2:15 PM EST Office Visit [facility] ADULT D[facility] [address] [place] [address] Raza Boo documented as of this encounter Visit Diagnoses Not on filedocumented in this encounter Care Teams Human Resources Executive Relationship Specialty Start Date End Date Jimmy Boo MD [address] [place] [address] PCP - General Internal Medicine 05/03/13 documented as of this encounter
--- OUTSIDE RECORDS SUMMARY | 2025-01-25 15:01 | XMS_ITS | Encounter Summary ---
Author Organization [employer] Address [address] [facility] [address] 7[address] [place] [address] Care Team Providers Care Showroom Sales Consultant Name Role Phone Jimmy Boo MD Primary Care Provider [phone] Encounter Details Date Type Department Care Team ([facility] Contact Info) Description 08/30/2023 Orders Only [facility] MED & PEDS [address] [place], [place] [phone] ProviderYnes MD Social History Tobacco Use Types [...] Visit [facility] ADULT DENTAL [address] [place] [address] Raza Boo documented as of this encounter [...] on filedocumented in this encounter Care Teams Showroom Sales Consultant Relationship Specialty Start Date End Date Jimmy Boo MD [address] [place] [address] PCP - General Internal Medicine 05/03/13 documented as of this encounter
--- OUTSIDE RECORDS SUMMARY | 2025-01-25 15:01 | XMS_ITS | Encounter Summary ---
Author Organization [employer] Address [address] [facility] 7t [place] [address] Care Team Providers Care Surveillance Sensor Operator Name Role Phone Jimmy Boo MD Primary Care Provider [phone] Reason for Visit * Reason Onset Date Comments scripted toothpaste 12/24/2024 Encounter Details Date Type Department Care Team ([facility] Contact Info) Description 12/24/2024 Telephone [facility] ADULT DENTAL [address] [place] [address] Luis Guzman DDS [address] [place] [address] scripted toothpaste Social History Tobacco Use Types [...] Office Visit [facility] ADULT D[facility]AL [address] [place] [address] Raza Boo documented as of this encounter Visit Diagnoses Not on filedocumented in this encounter Additional Health Concerns Assessment Noted Time PHQ-9 Depression Total Score: 8 06/05/19 25 2:12 PM EST documented as of this encounter Care Teams Surveillance Sensor Operator Relationship Specialty Start Date End Date Jimmy Boo MD [address] [place] [address] PCP - General Internal Medicine 05/03/13 documented as of this encounter
--- OUTSIDE RECORDS SUMMARY | 2025-01-25 15:01 | XMS_ITS | Encounter Summary ---
Author Organization [employer] Address [address] [facility] 7 [place] [address] Care Team Providers Care Womens Health Nurse Practitioner Name Role Phone Jimmy Boo MD Primary Care Provider [phone] Encounter Details Date Type Department Care Team ([facility] Contact Info) Description 07/07/2023 Orders Only [facility] MED & PEDS [address] [place], [place] [phone] Jimmy Boo MD [address] [place] [address] Diverticulosis of colon (Primary Dx) Social History [...] Visit [facility] ADULT DENTAL [address] [place] [address] Raza Boo Scheduled Orders Name Type Priority Associated Diagnoses Orde r Schedule Fecal Globin by Immunochemistry Lab Routine Diverticulosis of colon Expected: 07/07/2023 (Approximate), Expires: 07/06/2024 Urinalysis Complete Lab Routine Diverticulosis of colon Expected: 07/07/2023 (Approximate), Expires: 07/06/2024 documented as of this encounter Visit Diagnoses Diagnosis Diverticulosis of colon- Primary Diverticulosis of colon (without mention of hemorrhage) documented in this encounter Care Teams Womens Health Nurse Practitioner Relationship Specialty Start Date End Date Jimmy Boo MD [address] [place] [address] PCP - General Internal Medicine 05/03/13 documented as of this encounter
--- OUTSIDE RECORDS SUMMARY | 2025-01-25 15:01 | XMS_ITS | Encounter Summary ---
Author Organization [employer] Address [address] [place] [address] 7 [place] [address] Care Team Providers Care Body Die Maker Name Role Phone Jimmy Boo MD Primary Care Provider [phone]- [phone] Reason for Visit * Reason Comments Med Refill Encounter Details Date Type Department Care Team ([facility] Contact Info) Description 06/24/2022 Refill [facility] MED & PEDS [address] [place] [address] Jimmy Boo MD [address] [place] [address] Primary insomnia Social History Tobacco Use Types [...] Upcoming Encounters Date Type Department Care Team ([facility] Contact Info) Description 04/01/2025 2:15 PM EST Office Visit [facility] ADULT DENTAL [address] [place] [address] Raza Boo documented as of this encounter Visit Diagnoses Diagnosis Primary insomnia Persistent disorder of initiating or maintaining sleep documented in this encounter Care Teams Body Die Maker Relationship Specialty Start Date End Date Jimmy Boo MD [address] [place] [address] PCP - General Internal Medicine 05/03/13 documented as of this encounter
--- OUTSIDE RECORDS SUMMARY | 2025-01-25 15:01 | XMS_ITS | Encounter Summary ---
Author Organization [employer] Address [address] [facility] 7 [place] [address] Care Team Providers Care Manager Chemical Name Role Phone Jimmy Boo MD Primary Care Provider [phone] Reason for Visit * Reason Onset Date Comments Medication Question 06/21/2022 Encounter Details Date Type Department Care Team ([facility] Contact Info) Description 06/21/2022 Telephone [facility] [address] [place], [place] [phone] Jimmy Boo MD [address] [place], [place] [phone] Medication Question Social History Tobacco Use Types [...] out. Pt requesting Rx be sent to [facility] pharmacy on [facility]. * Telephone Encounter - Sangeetha Glenys - 06/21/2022 2:27 PM EDT Tc from pt requesting for medication ibuprofen . States does not want the 800mg . Would like to know if she can get 600 mg instead . documented in this encounter Plan of Treatment Upcoming Encounters Date Type Department Care Team ([facility] st Contact Info) Description 04/01/2025 2:15 PM EST Office Visit [facility] ADULT DENT[facility] [address] [place] [address] Raza Boo documented as of this encounter Visit Diagnoses Diagnosis Primary insomnia Persistent disorder of initiating or maintaining sleep SOB (shortness of breath) Shortness of breath documented in this encounter Care Teams Manager Chemical Relationship Specialty Start Date End Date Jimmy Boo MD [address] [place] [address] PCP - General Internal Medicine 05/03/13 documented as of this encounter
--- OUTSIDE RECORDS SUMMARY | 2025-01-25 15:01 | XMS_ITS | Encounter Summary ---
Author Organization [employer] Address [address] [place] [address] 7 [place] [address] Care Team Providers Care General Road Supervisor Name Role Phone Jimmy Boo MD Primary Care Provider [phone]- [phone] Encounter Details Date Type Department Care Team ([facility] Contact Info) Description 03/02/2023 Abstract [facility] ADULT DENTAL [address] [place] [address] Zahira Harris DDS [address] [place], [place] [phone] Social History Tobacco Use Types Packs/Day Years [...] Upcoming Encounters Date Type Department Care Team ([facility] Contact Info) Description 04/01/2025 2:15 PM EST Office Visit [facility] ADULT DENTAL [address] [place] [address] Raza Boo documented as of this encounter Visit Diagnoses Not on filedocumented in this encounter Care Teams General Road Supervisor Relationship Specialty Start Date End Date Jimmy Boo MD [address] [place], [place] [phone] PCP - General Internal Medicine 05/03/13 documented as of this encounter
--- OUTSIDE RECORDS SUMMARY | 2025-01-25 15:01 | XMS_ITS | Encounter Summary ---
Author Organization [employer] Address [address] [facility] [address] 7t [place] [address] Care Team Providers Care Inside Contractor Sales Name Role Phone Jimmy Boo MD Primary Care Provider [phone] Reason for Visit * Reason Comments Med Refill Encounter Details Date Type Department Care Team ([facility] Contact Info) Description 07/27/[address] [facility] CHC ADULT DENTAL [address] [place] [address] Luis Guzman DDS [address] [place] [address] Social History Tobacco Use Types Packs/Day Years [...] Visit [facility] ADULT DENTAL [address] [place] [address] Raza Boo documented as of this encounter Visit Diagnoses Not on filedocumented in this encounter Additional Health Concerns Assessment Noted Time PHQ-9 Depression Total Score: 8 06/05/19 25 2:12 PM EST documented as of this encounter Care Teams Inside Contractor Sales Relationship Specialty Start Date End Date Jimmy Boo MD 505 [place] [address] PCP - General Internal Medicine 05/03/13 documented as of this encounter
--- OUTSIDE RECORDS SUMMARY | 2025-01-25 15:01 | XMS_ITS | Encounter Summary ---
Author Organization [employer] Address [address] [facility] 7t [place] [address] Care Team Providers Care Causticiser Name Role Phone Jimmy Boo MD Primary Care Provider [phone] Reason for Visit * Reason Onset Date Comments Dr. Guzman refill Sodium Flouride 5000 cream too thpaste 07/12/2024 Encounter Details Date Type Department Care Team ([facility] Contact Info) Description 07/12/2024 Telephone [facility] ADULT DENTAL [address] [place] [address] Luis Guzman DDS [address] [place] [address] Dr. Guzman refill Sodium Flouride 5000 cream [...] [facility] AD[facility] 505 [place] [address] Raza Boo documented as of this encounter Visit Diagnoses Not on filedocumented in this encounter Additional Health Concerns Assessment Noted Time PHQ-9 Depression Total Score: 8 06/05/19 25 2:12 PM EST documented as of this encounter Care Teams Causticiser Relationship Specialty Start Date End Date Jimmy Boo MD [address] [place] [address] PCP - General Internal Medicine 05/03/13 documented as of this encounter
--- OUTSIDE RECORDS SUMMARY | 2025-01-25 15:01 | XMS_ITS | Encounter Summary ---
Author Organization [employer] Address [address] [facility] 7t [place] [address] Care Team Providers Care Brand Advocate Name Role Phone Jimmy Boo MD Primary Care Provider [phone] Reason for Visit * Reason Onset Date Comments Med Refill 07/13/2023 Encounter Details Date Type Department Care Team (Late Contact Info) Description 07/13/2023 Refill [facility] CHC ADULT DENTAL [address] [place] [address] Luis Guzman DDS [address] [place] [address] Social History Tobacco Use Types Packs/Day Years [...] Upcoming Encounters Date Type Department Care Team ([facility] Contact Info) Description 04/01/2025 2:15 PM EST Office Visit [facility] ADULT DENTAL 505 [place] [address] Raza Boo documented as of this encounter Visit Diagnoses Not on filedocumented in this encounter Care Teams Brand Advocate Relationship Specialty Start Date End Date Jimmy Boo MD [address] [place] [address] PCP - General Internal Medicine 05/03/13 documented as of this encounter
--- OUTSIDE RECORDS SUMMARY | 2025-01-25 15:01 | XMS_ITS | Encounter Summary ---
Author Organization [employer] Address [address] [place] [address] 7 [place] [address] Care Team Providers Care Central Office Trouble Shooter Name Role Phone Jimmy Boo MD Primary Care Provider [phone] Encounter Details Date Type Department Care Team ([facility] Contact Info) Description 04/13/2023 Abstract [facility] ADULT DENTAL [address] [place] [address] Zahira Harris DDS [address] [place], [place] [phone] Social History Tobacco Use Types Packs/Day Years [...] Upcoming Encounters Date Type Department Care Team ([facility] Contact Info) Description 04/01/2025 2:15 PM EST Office Visit [facility] ADULT DENTAL [address] [place] [address] Raza Boo documented as of this encounter Visit Diagnoses Not on filedocumented in this encounter Care Teams Central Office Trouble Shooter Relationship Specialty Start Date End Date Jimmy Boo MD [address] [place], [place] [phone] PCP - General Internal Medicine 05/03/13 documented as of this encounter
--- OUTSIDE RECORDS SUMMARY | 2025-01-25 15:01 | XMS_ITS | Encounter Summary ---
Author Organization [employer] Address [address] [facility] 7t [place] [address] Care Team Providers Care Early Learning Teacher Name Role Phone Jimmy Boo MD Primary Care Provider [phone] Reason for Visit * Reason Onset Date Comments case back from lab?? 10/19/2022 Encounter Details Date Type Department Care Team ([facility] Contact Info) Description 10/19/2022 Telephone C CHC ADULT DENTAL [address] [place] [address] Luis Guzman, DDS [address] [place] [address] case back from lab?? Social History Tobacco [...] Upcoming Encounters Date Type Department Care Team ([facility] Contact Info) Description 04/01/2025 2:15 PM EST Office Visit [facility] ADULT DENTAL [address] [place] [address] Raza Boo documented as of this encounter Visit Diagnoses Not on filedocumented in this encounter Care Teams Early Learning Teacher Relationship Specialty Start Date End Date Jimmy Boo MD [address] [place] [address] PCP - General Internal Medicine 05/03/13 documented as of this encounter
--- OUTSIDE RECORDS SUMMARY | 2025-01-25 15:01 | XMS_ITS | Encounter Summary ---
Author Organization [employer] Address [address] [place] [address] [address] [place] [address] Care Team Providers Care Battery Plate Remover Name Role Phone Jimmy Boo MD Primary Care Provider [phone] Reason for Referral * Imaging (Routine) - Authorized Specialty Diagnoses / Procedures Referred By Lonny harris Referred To Contact Radiology Diagnoses Subcutaneous nodule Chronic pain of right thumb Procedures US SOFT TISSUE Jimmy Boo MD [address] [place] [address] Phone: tel: fax: [address] Phone: tel: fax: Referral ID Status Reason Start Date Expiration Date V isits Requested Visits Authorized [id number] Authorized 01/01/2025 01/01/2026 1 1 * Consultation (Urgent) - Authorized Specialty Diagnoses / Procedures Referred By Lonny harris Referred To Contact Obstetrics and Gynecology Diagnoses Subcutaneous nodule Jimmy Boo MD [address] [place] [address] Phone: tel: fax: Zack Gray MD [address] [place] [address] [place] [address] Phone: tel: fax: Referral ID Status Reason Start Date Expiration Date Visits Requested Visits Authorized [id number] Authorized Specialty Services Required 12/31/2024 12/31/2025 1 1 Encounter Details Date Type Department Care Team ([facility] st Contact Info) Description 12/31/2024 Orders Only [facility] CHC MED & PEDS [address] [place] [address] Jimmy Boo MD [address] [place] [address] Subcutaneous nodule (Primary Dx); Chronic pain of right thumb Social History Tobacco Use Types Packs/Day Years [...] Upcoming Encounters Date Type Department Care Team ([facility] st Contact Info) Description 04/01/2025 2:15 PM EST Office Visit [facility] ADULT DENTAL [address] [place] [address] Raza Boo Scheduled Orders Name Type Priority Associated Diagnoses Orde r Schedule US SOFT TISSUE Imaging Routine Subcutaneous nodule Chronic pain of right thumb Expected: 01/01/2025, Expires: 01/01/2026 Scheduled Referrals Name Type Priority Associated Diagnoses Order Schedule Referral to Obstetrics / Gynecology Outpatient Referral Urgent Subcutaneous nodule Expected: 12/31/2024 (Approximate), Expires: 12/31/2025 documented as of this encounter Visit Diagnoses Diagnosis Subcutaneous nodule- Primary Chronic pain of right thumb documented in this encounter Additional Health Concerns Assessment Noted Time PHQ-9 Depression Total Score: 8 06/05/19 25 2:12 PM EST documented as of this encounter Care Teams Battery Plate Remover Relationship Specialty Start Date End Date Jimmy Boo MD [address] [place] [address] PCP - General Internal Medicine 05/03/13 documented as of this encounter
--- OUTSIDE RECORDS SUMMARY | 2025-01-25 15:01 | XMS_ITS | Encounter Summary ---
Author Organization [employer] Address [address] 7[address] [place] [address] Care Team Providers Care Lead Caster Name Role Phone Jimmy Boo MD Primary Care Provider [phone] Reason for Visit * Reason Comments Med Refill Encounter Details Date Type Department Care Team ([facility] Contact Info) Description 08/27/2023 Refill [facility] ADULT DENTAL [address] [place], [place] [phone] Mary Jane Massey DMD Social History Tobacco [...] Description 04/01/2025 2:15 PM EST Office Visit [facility] ADULT DENTAL [address] [place] [address] Raza Boo documented as of this encounter Visit Diagnoses Not on filedocumented in this encounter Care Teams Lead Caster Relationship Specialty Start Date End Date Jimmy Boo MD [address] [place] [address] PCP - General Internal Medicine 05/03/13 documented as of this encounter
== END 2025-01-25 13:34 | disposition home or self-care (01) ==
LOC: HO.HUSH 13:00
PROVIDERS: PCP Internal Medicine; Visit Provider Urology
DX: N30.10 Interstitial cystitis (chronic) without hematuria (principal); R39.15 Urgency of urination; R31.29 Other microscopic hematuria; Z13.9 Encounter for screening, unspecified
CPT/HCPCS: 99213

== ENCOUNTER → 2025-01-25 13:00 | Outpatient (BNVA) | payer OTHER, SELFPAY | PROVIDERS: PCP Internal Medicine; Visit Provider Urology | DX: N30.10 Interstitial cystitis (chronic) without hematuria (principal); R39.15 Urgency of urination; R31.29 Other microscopic hematuria; Z13.9 Encounter for screening, unspecified | CPT/HCPCS: 51798; 81003; 99212 ==

== ENCOUNTER 2025-02-05 08:35 | Outpatient (REF) | payer OTHER, SELFPAY ==
--- OUTSIDE RECORDS SUMMARY | 2025-02-05 09:57 | XMS_ITS | Data Portability ---
Author Organization [employer] [facility], [facility] Address [address] [place] [address] Care Team Providers Care Gate Tender Name Role Phone Unavailable OTHER HIM CCA OTHER Assessment Encounter Date Assessment Date Assessment LastModified by Organization Details LastModified Time 04/10/2024 04/10/2024 I provided real -time medical direction via phone for this encounter, and was available for additional phone based assistance as needed. I have reviewed the Assessment and Plan as documented by the Transfer Car Operator Drier. We discussed the diagnostic uncertainty of home [...] to call 911- verbalized understanding of instruction [email or web address] Not available 04/10/2024 17:16:10 Plan of Treatment Reminders Order Date Submit Date Provider Last Modified By Organization Details Last Modified Time Details Appointments None recorded. Lab None recorded. Referral None recorded. Procedures None recorded. Surgeries None recorded. Imaging None recorded. Medication Orders prednisone 20 mg tablet 2024 025 [email or web address] Not available 14:39:14 prednisone 20 mg tablet 2024 025 [facility] #[id number], [address] [facility] [place], [address], 14:39:17 Patient TargetsNo targets recorded. Patient InstructionsNo instructions recorded. Reason for Referral None Reported. Medical Equipment None Reported. Allergies Allergen ID Allergen Name Allergen Category Reaction Reaction Severity Criticality Documentation Date Start Date Code Code System Note Provider Name and Address Organization Details Recorded Time 16341 topiramat e medicatio n Not available Not available Not available 04/10/2024 49338 RxNorm Not Available [facility] - production 10:14:26 86255 Bactrim medicatio n Not available Not available Not available 04/10/2024 25723 9 RxNorm Not Available [facility] - production 10:14:26 91384 Iodinated contrast media (substanc e) medicatio n Not available Not available Not available 04/10/2024 25662 2003 SNOMED Cara Bauer MD [address] [place] [address],[address], [place], [address], [employer] 14:33:28 11319 tamoxifen medicatio n Not available Not available Not available 04/10/2024 24290 RxNorm Cara Bauer MD [address] [place] [address],[address], [place], [address], [employer] 14:33:55 Medications Name Sig Start Date Stop [...] % 149.86 cm 80 /min 18 /min 94739.1 2 g 147/94 mm[Hg] Not Available [facility] [...] ICD10 Code Diagnosis IMO Codes Diagnosis Note [id number] Cara Bauer MD Main - [address] [phone] 04/10/2024 14:14:38 04/10/2024 18:10:27 Atypical facial pain 46033196 G50.1 Possible trigeminal neuralgia/ discussed gabapentin with [...] Gill Member ID Guarantor Name 04/28/2024 1 [facility] - DOS ON OR AFTER 2022 - DUAL ELIGIBLE - RESIDENTIAL OPTIONS AND ONE CARE (MEDICARE REPLACEMENT/AD VANTAGE - HMO) Lakisha Hearn [id number] Lakisha Hearn Notes Date Note Type Note Provider Name and Address Organization Details Recorded Time 04/10/2024 text/html ROS as noted in the HPI HPI: Patient with complaints of right sided face pain for 4-5 days. No fever, slight headache. Pain right holiness forehead eye and face.Recovered COVID March 2024 ...................... ...................... ...................... ...................... ...................... ...................... ......... [facility] Nurse Triage Notes (Malia Kent - YVONNE): Chief Complaints: Headache PMH: Multiple Sclerosis, Cigarette Smoker, Gastroesophageal Reflux Disease (GERD) PMH Reviewed at 04/10/2024:14 Allergies Reviewed at 04/10/2024 - 10:14 Comments: HPI reviewed Allergies BEE ...................... ...................... ...................... ...................... ...................... ...................... ......... Transfer Car Operator Drier Note From Kuldip Kidd: SC1 dispatched to [...] ...................... ...................... ...................... ...................... ...................... ...................... ......... [facility] Consulted: Cara Bauer ...................... ...................... ...................... ...................... ...................... ...................... ......... Disposition: Fulfilled SEGMD: Patient clearly reported to me she has a headache when she gets up in the am for months/ she describes that she has pain from her right lateral orbit to her right temporal /parietal area-it feels like [id number] with a sharp component, but it does [...] not a diabetic. Cara Bauer MD [address] [facility], [place], [address], MIGUEL - Fotomoto, TAMIKO 04/10/2024 17:16:13 OBGyn Episode No OBEpisode recorded.
[2025-02-06 10:13] LABS: CT PCR Urine NOT DETECTED (Not Detect.); NG PCR Urine NOT DETECTED (Not Detect.)
== END 2025-02-05 08:36 | disposition home or self-care (01) ==
LOC: HO.LNP 08:35
PROVIDERS: PCP Internal Medicine; Visit Provider Obstetrics & Gynecology
DX: R10.21 Pelvic and perineal pain right side (principal); R31.29 Other microscopic hematuria; Z11.51 Encounter for screening for human papillomavirus (HPV); Z20.2 Contact with and (suspected) exposure to infections with a predominantly sexual mode of transmission
CPT/HCPCS: 87491; 87591; 87626; 88175; 99202

== ENCOUNTER 2025-02-05 08:35 | Outpatient (AMB) | payer OTHER, SELFPAY ==
--- NOTE | 2025-02-05 08:49 | MHC.OFFVIS ---
Vital Signs 02/05/25 08:51 Height 4 ft 11 in Weight 105 lb BMI 21.2 BP 104/66 Intake Visit Reasons: subcutaneous nodules Qual Research Manager Required: No Information Interpreted: non-clinical & clinical Accompanied by: Self / Same As Patient Allergies Iodinated Contrast Media (IV CONTRAST) Allergy (Severe, Verified 02/05/25 08:55) (ULTRAVIST) TINGLING OF LIPS AND SWELLING LIPS AND EYES adhesive tape (ADHESIVE TAPE) Allergy (Intermediate, Verified 02/05/25 08:55) BLISTERS tamoxifen (TAMOXIFEN) Allergy (Mild, Verified 02/05/25 08:55) GI UPSET Sulfa (Sulfonamide Antibiotics) (SULFA (SULFONAMIDE ANTIBIOTICS)) Allergy (Unknown, Verified 02/05/25 08:55) UNKNOWN bee pollen (bee stings) Allergy (Verified 02/05/25 08:55) Swelling Post menopausal: Yes HPI Comments Details: Presenting referred from PCP regarding right lower quadrant pelvic pain associated with right vulvar discomfort, the patient states that she feels a subcuticular nodule on the right vulva of a year duration no associated vaginal discharge or bleeding no urinary or GI symptoms. Last Pap smear was many years ago 12/29/2024 perineal ultrasound showed the following: Ultrasound the area of clinical concern right labia demonstrates a hypoechoic superficial lesion slightly hyperemic measuring 2.6 x 1.1 x 0.6 cm. This may be inflammatory in nature no drainable fluid collection is demonstrated underlying mass not excluded. MRI may be of further diagnostic value with contrast. Impression: Focal possible inflammatory process in the right labia rather than underlying mass which can not be entirely excluded. Clinical correlation is strongly advised. Contrast-enhanced MRI may be of further diagnostic value. 01/11/2025 CT scan showed the following: IMPRESSION: No cause of right lower quadrant pain seen. The appendix is normal. Stable low-attenuation liver lesions from prior exams. [facility] Medical History Breast cancer History of right breast cancer Hypothyroid Multiple sclerosis Seizure Dyspnea on exertion Palpitations Asthma Subcutaneous mass Interstitial cystitis Surgical History Hx of elbow surgery Hx of rotator cuff surgery History of cystoscopy History of excision of mass (06/07/18) History of colonoscopy (06/2016) History of lumpectomy of right breast History of right breast biopsy History of tubal ligation History of ear surgery Family History Mother Colon cancer Father Bone cancer Lung cancer Brother Cancer of unknown origin Sister Leaky heart valve Brother CHF (congestive heart failure) Social History Household Members: None Housing: Apartment Alcohol intake: current Alcohol intake frequency: holidays/special occasions only Patient Tobacco Use Status: Former Tobacco user Tobacco use type: Cigarette Years Smoked: 8 Advance Directives Date on File: 09/13/14 Current occupational status: disabled Current occupation: rt hand Sexual orientation: Straight/Heterosexual Gender identity: Female Female Reproductive History Menstrual Total pregnancies: 3 Full term: 2 Number of Living Children: 2 Ab induced: 1 Physical Exam Vital Signs: Last Vital Signs BP 104/66 02/05/25 08:51 BMI result Body Mass Index 21.2 Assessment & Plan Assessment & Plan (1) Pain in vulva: Code(s): R10.2 - Pelvic and perineal pain Category: Medical Plan: Discussed with the patient the normal finding on pelvic exam, no evidence of detectable mass or nodule. GC/CT collected, Co testing done. Given the finding on perineal ultrasound, recommended pelvic MRI as the next step in the management (2) Pelvic pain: Code(s): R10.2 - Pelvic and perineal pain Category: Medical Plan: The patient could not give a urine sample for a Urine dip will come back to the office tomorrow for another urine dip and urine GC and chlamydia to be collected. MRI of pelvis ordered. Discussed with the patient the differential diagnosis of pelvic pain including but not limited to adnexal, uterine masses, pelvic infections (PID), GI the (Irritable bowel syndrome, diverticulitis, others), musculoskeletal, myofascial pain abdominal wall , adhesions, endometriosis, psychological and others causes. Will check results and treat accordingly. All questions answered, the patient verbalized understanding. Instructed the patient to schedule an ultrasound and a follow-up appointment in 2 weeks. All questions answered, the patient verbalized understanding and agreed with the plan. Orders: Orders Pap Smear Today R10.2 - Pelvic and perineal pain HPV High risk Today R10.2 - Pelvic and perineal pain MR pelvis wo/w con Today R10.2 - Pelvic and perineal pain CT NG by PCR Urine Today R10.2 - Pelvic and perineal pain Coding Level of Care Code New Pt Level 3 (16637) Diagnoses Pain in vulva R10.2 Pelvic pain R10.2
[2025-02-05 08:51] VITALS: BP 104/66; BMI 21.2
--- OUTSIDE RECORDS SUMMARY | 2025-02-05 08:59 | XMS_ITS | Encounter Summary ---
Author Organization [employer] Address [address] [facility] 7t [place] [address] Care Team Providers Care Social Secretary Name Role Phone Jimmy Boo MD Primary Care Provider [phone] Reason for Visit * Reason Onset Date Comments Nurse Triage 10/24/2023 Encounter Details Date Type Department Care Team ([facility] st Contact Info) Description 10/24/2023 Telephone [facility]C MED & PEDS [address] [place], [place] [phone] Jimmy Boo MD [address] [place] [address] Nurse Triage Social History Tobacco Use Types [...] past 12 months, has t he electric, [place], oil or water [employer] threatened to shut off services in your [...] PCP. Please see notes, Please contact at [phone] * Telephone Encounter - Diane Garcia RN [...] a video call tomorrow when PCP opens [facility] schedule 10/25/23. Pt. Would prefer for RX [...] caller accepted this outcome Contact pt at [phone] documented in this encounter Plan of Treatment Upcoming Encounters Date Type Department Care Team (Late st Contact Info) Description 04/01/2025 2:15 PM EST Office Visit [facility] ADULT DENTAL [address] [place] [address] Raza Boo documented as of this encounter Visit Diagnoses Diagnosis Primary insomnia Persistent disorder of initiating or maintaining sleep documented in this encounter Care Teams Social Secretary Relationship Specialty Start Date End Date Jimmy Boo MD [address] [place] [address] PCP - General Internal Medicine 05/03/13 documented as of this encounter
--- OUTSIDE RECORDS SUMMARY | 2025-02-05 08:59 | XMS_ITS | Encounter Summary ---
Author Organization [employer] Address [address] [facility] 7t [place] [address] Care Team Providers Care Satin Finisher Name Role Phone Jimmy Boo MD Primary Care Provider [phone] Reason for Visit * Reason Comments Med Refill Encounter Details Date Type Department Care Team ([facility] Contact Info) Description 03/16/2022 Refill [facility] MEDICINE [address] [place] [address] Jimmy Boo MD [address] [place], [place] [phone] Insomnia, unspecified Social History Tobacco Use Types [...] Upcoming Encounters Date Type Department Care Team ([facility] Contact Info) Description 04/01/2025 2:15 PM EST Office Visit [facility] CHC ADULT DENTAL [address] [place] [address] Raza Boo documented as of this encounter Visit Diagnoses Diagnosis Insomnia, unspecified documented in this encounter Care Teams Satin Finisher Relationship Specialty Start Date End Date Jimmy Boo MD [address] [place] [address] PCP - General Internal Medicine 05/03/13 documented as of this encounter
--- OUTSIDE RECORDS SUMMARY | 2025-02-05 08:59 | XMS_ITS | Encounter Summary ---
Author Organization [employer] [facility] Address [address] [facility] 7 [place] [address] Care Team Providers Care Assistant Reading Teacher Name Role Phone Jimmy Boo MD Primary Care Provider [phone] Encounter Details Date Type Department Care Team (Latest Contact Info) Description 03/14/2020 Abstract [facility] CONVERSIONS Dental, Provider, DDS Social [...] [facility] [address] [place] [address] Raza Boo documented as of this encounter Visit Diagnoses Not on filedocumented in this encounter Care Teams Assistant Reading Teacher Relationship Specialty Start Date End Date Jimmy Boo MD [address] [place] [address] PCP - General Internal Medicine 05/03/13 documented as of this encounter
--- OUTSIDE RECORDS SUMMARY | 2025-02-05 08:59 | XMS_ITS | Encounter Summary ---
Author Organization [employer] Address [address] [facility] 7t [place] [address] Care Team Providers Care Desktop Operator Name Role Phone Jimmy Boo MD Primary Care Provider [phone] Reason for Visit * Reason Comments Med Refill Encounter Details Date Type Department Care Team ([facility] st Contact Info) Description 12/29/2023 Refill [facility] MEDICINE [address] [place] [address] Jimmy Boo MD [address] [place] [address] Primary insomnia Social History Tobacco Use Types [...] t he electric, gas, oil or water [employer] threatened to shut off services in your [...] Visit [facility] ADULT DENTAL [address] [place] [address] Raza Boo documented as of this encounter Visit Diagnoses Diagnosis Primary insomnia Persistent disorder of initiating or maintaining sleep documented in this encounter Care Teams Desktop Operator Relationship Specialty Start Date End Date Jimmy Boo MD [address] [place] [address] PCP - General Internal Medicine 05/03/13 documented as of this encounter
--- OUTSIDE RECORDS SUMMARY | 2025-02-05 08:59 | XMS_ITS | Encounter Summary ---
Author Organization [employer] Address [address] [facility] 7t [place] [address] Care Team Providers Care Sharepoint Administrator Name Role Phone Jimmy Boo MD Primary Care Provider [phone] Encounter Details Date Type Department Care Team ([facility] Contact Info) Description 11/28/2023 Orders Only [facility] CHC MED & PEDS [address] [place], [place] [phone] Jimmy Boo MD [address] [place] [address] Social History Tobacco Use Types Packs/Day Years [...] [facility] [address] [place] [address] Raza Boo documented as of this encounter Visit Diagnoses Not on filedocumented in this encounter Care Teams Sharepoint Administrator Relationship Specialty Start Date End Date Jimmy Boo MD [address] [place] [address] PCP - General Internal Medicine 05/03/13 documented as of this encounter
--- OUTSIDE RECORDS SUMMARY | 2025-02-05 08:59 | XMS_ITS | Encounter Summary ---
Author Organization [employer] Address [address] [facility] 7t [place] [address] Care Team Providers Care Head Holder Name Role Phone Jimmy Boo MD Primary Care Provider [phone] Encounter Details Date Type Department Care Team ([facility] st Contact Info) Description 10/24/2023 Orders Only [facility] CHC MED & PEDS [address] [place], [place] [phone] Jimmy Boo MD [address] [place] [address] Herpes zoster without complication (Primary Dx) Social [...] t he electric, gas, oil or water [employer] threatened to shut off services in your [...] [facility] AD[facility] [address] [place] [address] Raza Boo documented as of this encounter Procedures Procedure Name Priority Date/Time Associated Diagnosis Comments XR FINGERS 2+ VIEWS RIGHT Routine 11/23/2023 11:55 AM EDT documented in this encounter Results * XR Fingers 2+ Views Right (11/23/2023 11:55 AM EDT) Anatomical Region Laterality Modality Upper Extremities, Fingers Right Radio graphic Imaging 11/23/2023 11:5 5 AM EDT Narrative 11/27/2023 2:15 PM EDT [address] [address] XRay Report Signed Patient: Lakisha Hearn MR#: [id number] : 1965 Acct:[id number] Age/Sex: 58 / F ADM Date: 11/23/23 Loc: [facility] Attending Dr: Jimmy Boo MD Ordering Physician: Jimmy Boo MD Date of Service: 11/23/23 Procedure(s): XR finger RT min 2V Accession Number(s): [id number] cc: Jimmy Boo MD EXAMINATION: XR FINGER, [...] unremarkable. XR/XR finger RT min 2V IMPRESSION: Megx-ev-wueorddx osteoarthritis of the first carpometacarpal joint with degenerative changes slightly progressed compared with February 2019 Electronically signed by: Kuldip Dill MD 11/27/2023 02:13 PM EDT RP Dictated By: Kuldip Dill MD Signed By: <Electronically signed by Kuldip Dill MD in OV> 11/27/23 1413 DD/ 1155 TD/TT: 11/23/23 1205 New Product Trainer: STEVE Procedure Note Donotuseinterpreter, Image - 11/27/[address] [address] XRay Report Signed Patient: Lakisha Hearn AMR#: [id number] : 1965Acct:[id number] Age/Sex: 58 / FADM Date: 11/23/23 Loc: [facility] Attending Dr: Jimmy Boo MD Ordering Physician: Jimmy Boo MD Date of Service: 11/23/23 Procedure(s): XR finger RT min 2V Accession Number(s): [id number] cc: Jimmy Boo MD EXAMINATION: XR FINGER, [...] unremarkable. XR/XR finger RT min 2V IMPRESSION: Siqz-md-yfwrsewi osteoarthritis of the first carpometacarpal joint with degenerative changes slightly progressed compared with February 2019 Electronically signed by: Kuldip Dill MD 11/27/2023 02:13 PM EDT RP Dictated By: Kuldip Dill MD Signed By: <Electronically signed by Kuldip Dill MD inOV> 11/27/23 1413 DD/ 1155 TD/TT: 11/23/23 1205 New Product Trainer: STEVE Jimmy Boo MD IMG XR PROCEDURES Final Res ult documented in this encounter Visit Diagnoses Diagnosis Herpes zoster without complication- Primary documented in this encounter Care Teams Head Holder Relationship Specialty Start Date End Date Jimmy Boo MD [address] [place] [address] PCP - General Internal Medicine 05/03/13 documented as of this encounter
--- OUTSIDE RECORDS SUMMARY | 2025-02-05 08:59 | XMS_ITS | Encounter Summary ---
Author Organization [employer] Address 75 [facility] 7 [place] [address] Care Team Providers Care Hydraulic Press Tender Name Role Phone Jimmy Boo MD Primary Care Provider [phone] Reason for Visit * Reason Comments Med Refill Encounter Details Date Type Department Care Team ([facility] Contact Info) Description 04/22/2022 Refill [facility] MEDICINE [address] [place], [place] [phone] Jimmy Boo MD 505 [place], [place] [phone] SOB (shortness of breath) Social History Tobacco [...] [facility] Contact Info) Description 04/01/2025 2:15 PM EST Office Visit [facility] CHC ADULT DENTAL 505 [place] [address] Raza Boo documented as of this encounter Visit Diagnoses Diagnosis SOB (shortness of breath) Shortness of breath documented in this encounter Care Teams Hydraulic Press Tender Relationship Specialty Start Date End Date Jimmy Boo MD [address] [place] [address] PCP - General Internal Medicine 05/03/13 documented as of this encounter
--- OUTSIDE RECORDS SUMMARY | 2025-02-05 08:59 | XMS_ITS | Encounter Summary ---
Author Organization [employer] Address [address] [facility] 7t [place] [address] Care Team Providers Care Computer Programmer Analyst Name Role Phone Jimmy Boo MD Primary Care Provider [phone] Reason for Visit * Reason Comments Med Refill Encounter Details Date Type Department Care Team ([facility] st Contact Info) Description 11/03/2023 Refill [facility] CHC ADULT DENTAL [address] [place] [address] Luis Guzman DDS [address] [place] [address] Social History Tobacco Use Types Packs/Day Years [...] t he electric, gas, oil or water [employer] threatened to shut off services in your [...] Upcoming Encounters Date Type Department Care Team ([facility] st Contact Info) Description 04/01/2025 2:15 PM EST Office Visit [facility] ADULT DENTAL 505 [place] [address] Raza Boo documented as of this encounter Visit Diagnoses Not on filedocumented in this encounter Care Teams Computer Programmer Analyst Relationship Specialty Start Date End Date Jimmy Boo MD [address] [place] [address] PCP - General Internal Medicine 05/03/13 documented as of this encounter
--- OUTSIDE RECORDS SUMMARY | 2025-02-05 08:59 | XMS_ITS | Encounter Summary ---
Author Organization [employer] [facility] Address 75 [facility] 7 [place] [address] Care Team Providers Care Emergency Dispatcher Name Role Phone Jimmy Boo MD Primary Care Provider [phone] Encounter Details Date Type Department Care Team (Latest Contact Info) Description 08/16/2018 Abstract [facility] CONVERSIONS Dental, Provider, DDS Social History Tobacco [...] Visit [facility] ADULT DENTAL 505 [place] [address] Raza Boo documented as of this encounter Visit Diagnoses Not on filedocumented in this encounter Care Teams Emergency Dispatcher Relationship Specialty Start Date End Date Jimmy Boo MD 505 [place] [address] PCP - General Internal Medicine 05/03/13 documented as of this encounter
--- OUTSIDE RECORDS SUMMARY | 2025-02-05 08:59 | XMS_ITS | Encounter Summary ---
Author Organization [employer] Address 75 [facility] 7t [place] [address] Care Team Providers Care Soft Mud Molder Name Role Phone Jimmy Boo MD Primary Care Provider [phone] Reason for Visit * Reason Comments Med Refill Encounter Details Date Type Department Care Team ([facility] st Contact Info) Description 12/28/2023 Refill [facility] MEDICINE 230 [place] [address] Jimmy Boo MD 505 [place] [address] Primary insomnia Social History Tobacco Use Types [...] t he electric, gas, oil or water [employer] threatened to shut off services in [...] Visit [facility] ADULT DENTAL 505 [place] [address] Raza Boo documented as of this encounter Visit Diagnoses Diagnosis Primary insomnia Persistent disorder of initiating or maintaining sleep documented in this encounter Care Teams Soft Mud Molder Relationship Specialty Start Date End Date Jimmy Boo MD 505 [place] [address] PCP - General Internal Medicine 05/03/13 documented as of this encounter
--- OUTSIDE RECORDS SUMMARY | 2025-02-05 08:59 | XMS_ITS | Encounter Summary ---
Author Organization [employer] Address 75 [facility] 7t [place] [address] Care Team Providers Care Aboriginal Community Council Member Name Role Phone Jimmy Boo MD Primary Care Provider [phone] Encounter Details Date Type Department Care Team ([facility] st Contact Info) Description 04/25/2024 Orders Only [facility] CHC MED & PEDS 505 [place], [place] [phone] Jimmy Boo MD 505 [place] [address] Primary insomnia Social History Tobacco Use Types [...] Visit [facility] ADULT DENTAL 505 [place] [address] Raza Boo documented as of this encounter Visit Diagnoses Diagnosis Primary insomnia Persistent disorder of initiating or maintaining sleep documented in this encounter Care Teams Aboriginal Community Council Member Relationship Specialty Start Date End Date Jimmy Boo MD 505 [place] [address] PCP - General Internal Medicine 05/03/13 documented as of this encounter
--- OUTSIDE RECORDS SUMMARY | 2025-02-05 08:59 | XMS_ITS | Encounter Summary ---
Author Organization [employer] Address 75 [facility] 7t [place] [address] Care Team Providers Care Professor Of Early Childhood Education Name Role Phone Jimmy Boo MD Primary Care Provider [phone] Reason for Visit * Reason Onset Date Comments Nurse Triage 07/02/2024 Encounter Details Date Type Department Care Team ([facility] st Contact Info) Description 07/02/2024 Telephone [facility] MEDICINE 230 [place] [address] Jimmy Boo MD [address] [place] [address] Nurse Triage Social History Tobacco Use Types [...] Pt had lumbar puncture on 06/14/24 at [facility] and has had some increased back pain since then. Pt denies redness, swelling at site but, is concerned as to the length of time having pain. ASK apt [facility] CHC today at 320pm. [...] acuity questions The caller accepted this outcome. [phone] Pt had lumbar procedure on june 14. documented in this encounter Plan of Treatment Upcoming Encounters Date Type Department Care Team ([facility] st Contact Info) Description 04/01/2025 2:15 PM EST Office [facility] ADULT DENTAL 505 [place] [address] Raza Boo documented as of this encounter Visit Diagnoses Not on filedocumented in this encounter Additional Health Concerns Assessment Noted Time PHQ-9 Depression Total Score: 8 06/05/19 25 2:12 PM EST documented as of this encounter Care Teams Professor Of Early Childhood Education Relationship Specialty Start Date End Date Jimmy Boo MD 505 [place] [address] PCP - General Internal Medicine 05/03/13 documented as of this encounter
--- OUTSIDE RECORDS SUMMARY | 2025-02-05 08:59 | XMS_ITS | Encounter Summary ---
Author Organization [employer] Address [address] [facility] [address] 7t [place] [address] Care Team Providers Care Nailhead Puncher Name Role Phone Jimmy Boo MD Primary Care Provider [phone] Reason for Visit * Reason Comments Med Refill Encounter Details Date Type Department Care Team ([facility] Contact Info) Description 12/02/2023 Refill [facility] CHC ADULT DENTAL [address] [place] [address] Luis Guzman DDS [address] [place] [address] Social History Tobacco Use Types Packs/Day Years [...] Upcoming Encounters Date Type Department Care Team ([facility] st Contact Info) Description 04/01/2025 2:15 PM EST Office Visit [facility] ADULT DENTAL 505 [place] [address] Raza Boo documented as of this encounter Visit Diagnoses Not on filedocumented in this encounter Care Teams Nailhead Puncher Relationship Specialty Start Date End Date Jimmy Boo MD 505 [place] [address] PCP - General Internal Medicine 05/03/13 documented as of this encounter
--- OUTSIDE RECORDS SUMMARY | 2025-02-05 09:00 | XMS_ITS | Encounter Summary ---
Author Organization [employer] [facility] Address [address] [place] [address] 7 [place] [address] Care Team Providers Care Bowling Floor Desk Clerk Name Role Phone Jimmy Boo MD Primary Care Provider [phone] Encounter Details Date Type Department Care Team (Late Contact Info) Description 05/16/2023 Abstract [facility] ADULT DENTAL 505 [place] [address] Mary Jane Massey DMD Social History Tobacco [...] Visit [facility] ADULT DENTAL 505 [place] [address] Raza Boo documented as of this encounter Visit Diagnoses Not on filedocumented in this encounter Care Teams Bowling Floor Desk Clerk Relationship Specialty Start Date End Date Jimmy Boo MD 505 [place] [address] PCP - General Internal Medicine 05/03/13 documented as of this encounter
--- OUTSIDE RECORDS SUMMARY | 2025-02-05 09:00 | XMS_ITS | Encounter Summary ---
Author Organization [employer] Address 75 [facility] 7t [place] [address] Care Team Providers Care Divisional Merchandising Manager Name Role Phone Jimmy Boo MD Primary Care Provider [phone] Reason for Visit * Reason Onset Date Comments case back from lab?? 10/19/2022 Encounter Details Date Type Department Care Team ([facility] Contact Info) Description 10/19/2022 Telephone C CHC ADULT DENTAL [address] [place] [address] Luis Guzman, DDS [address] [place] [address] case back from lab?? Social History Tobacco [...] Type Department Care Team ([facility] Contact Info) Description 04/01/2025 2:15 PM EST Office Visit [facility] ADULT DENTAL 505 [place] [address] Raza Boo documented as of this encounter Visit Diagnoses Not on filedocumented in this encounter Care Teams Divisional Merchandising Manager Relationship Specialty Start Date End Date Jimmy Boo MD 505 [place] [address] PCP - General Internal Medicine 05/03/13 documented as of this encounter
--- OUTSIDE RECORDS SUMMARY | 2025-02-05 09:00 | XMS_ITS | Encounter Summary ---
Author Organization [employer] Address [address] [place] [address] 7 [place] [address] Care Team Providers Care Professional Model Name Role Phone Jimmy Boo MD Primary Care Provider [phone] Reason for Visit * Reason Comments Med Refill Encounter Details Date Type Department Care Team ([facility] Contact Info) Description 06/23/2022 Refill [facility] MED & PEDS 505 [place] [address] Jimmy Boo MD 505 [place] [address] Primary insomnia Social History Tobacco Use Types [...] Upcoming Encounters Date Type Department Care Team ([facility] Contact Info) Description 04/01/2025 2:15 PM EST Office Visit [facility] ADULT DENTAL 505 [place] [address] Raza Boo documented as of this encounter Visit Diagnoses Diagnosis Primary insomnia Persistent disorder of initiating or maintaining sleep documented in this encounter Care Teams Professional Model Relationship Specialty Start Date End Date Jimmy Boo MD [address] [place] [address] PCP - General Internal Medicine 05/03/13 documented as of this encounter
--- OUTSIDE RECORDS SUMMARY | 2025-02-05 09:00 | XMS_ITS | Encounter Summary ---
Author Organization [employer] Address 75 [facility] 7 [place] [address] Care Team Providers Care Curator Natural History Museum Name Role Phone Jimmy Boo MD Primary Care Provider [phone] Encounter Details Date Type Department Care Team ([facility] Contact Info) Description 07/07/2023 Orders Only [facility] MED & PEDS [address] [place], [place] [phone] Jimmy Boo MD 505 [place] [address] Diverticulosis of colon (Primary Dx) Social History [...] Visit [facility] ADULT DENTAL [address] [place] [address] Raza Boo Scheduled Orders Name Type Priority Associated Diagnoses Orde r Schedule Fecal Globin by Immunochemistry Lab Routine Diverticulosis of colon Expected: 07/07/2023 (Approximate), Expires: 07/06/2024 Urinalysis Complete Lab Routine Diverticulosis of colon Expected: 07/07/2023 (Approximate), Expires: 07/06/2024 documented as of this encounter Visit Diagnoses Diagnosis Diverticulosis of colon- Primary Diverticulosis of colon (without mention of hemorrhage) documented in this encounter Care Teams Curator Natural History Museum Relationship Specialty Start Date End Date Jimmy Boo MD [address] [place] [address] PCP - General Internal Medicine 05/03/13 documented as of this encounter
--- OUTSIDE RECORDS SUMMARY | 2025-02-05 09:00 | XMS_ITS | Encounter Summary ---
Author Organization [employer] Address [address] [place] [address] 7 [place] [address] Care Team Providers Care Wire Tinner Name Role Phone Jimmy Boo MD Primary Care Provider [phone] Encounter Details Date Type Department Care Team ([facility] Contact Info) Description 04/13/[address] [facility] ADULT DENTAL 505 [place] [address] Zahira Harris DDS 505 [place], [place] [phone] Social History Tobacco Use Types Packs/Day Years [...] [facility] 505 [place] [address] Raza Boo documented as of this encounter Visit Diagnoses Not on filedocumented in this encounter Care Teams Wire Tinner Relationship Specialty Start Date End Date Jimmy Boo MD 505 [place], [place] [phone] PCP - General Internal Medicine 05/03/13 documented as of this encounter
--- OUTSIDE RECORDS SUMMARY | 2025-02-05 09:00 | XMS_ITS | Encounter Summary ---
Author Organization [employer] Address [address] [place] [address] 7 [place] [address] Care Team Providers Care Manufacturing Area Manager Name Role Phone Jimmy Boo MD Primary Care Provider [phone] Reason for Visit * Reason Comments Med Refill Encounter Details Date Type Department Care Team ([facility] Contact Info) Description 06/22/2022 Refill [facility] MED & PEDS 505 [place], [place] [phone] Jimmy Boo MD 505 [place] [address] Primary insomnia Social History Tobacco Use Types [...] Department Care Team ([facility] Contact Info) Description 04/01/2025 2:15 PM EST Office Visit [facility] ADULT DENTAL [address] [place] [address] Raza Boo documented as of this encounter Visit Diagnoses Diagnosis Primary insomnia Persistent disorder of initiating or maintaining sleep documented in this encounter Care Teams Manufacturing Area Manager Relationship Specialty Start Date End Date Jimmy Boo MD [address] [place] [address] PCP - General Internal Medicine 05/03/13 documented as of this encounter
--- OUTSIDE RECORDS SUMMARY | 2025-02-05 09:00 | XMS_ITS | Encounter Summary ---
Author Organization [employer] Address 75 [facility] 7t [place] [address] Care Team Providers Care Eap Counselor Name Role Phone Jimmy Boo MD Primary Care Provider [phone] Reason for Visit * Reason Onset Date Comments Med Refill 07/13/2023 Encounter Details Date Type Department Care Team (Late Contact Info) Description 07/13/[address] [facility] CHC ADULT DENTAL [address] [place] [address] Luis Guzman DDS 230 [place] [address] Social History Tobacco Use Types Packs/Day Years [...] Care Team ([facility] Contact Info) Description 04/01/2025 2:15 PM EST Office Visit [facility] ADULT DENTAL 505 [place] [address] Raza Boo documented as of this encounter Visit Diagnoses Not on filedocumented in this encounter Care Teams Eap Counselor Relationship Specialty Start Date End Date Jimmy Boo MD 505 [place] [address] PCP - General Internal Medicine 05/03/13 documented as of this encounter
--- OUTSIDE RECORDS SUMMARY | 2025-02-05 09:00 | XMS_ITS | Encounter Summary ---
Author Organization [employer] Address 75 [facility] 7t [place] [address] Care Team Providers Care Naval Aircrewman Name Role Phone Jimmy Boo MD Primary Care Provider [phone] Reason for Visit * Reason Onset Date Comments scripted toothpaste 12/24/2024 Encounter Details Date Type Department Care Team ([facility] Contact Info) Description 12/24/2024 Telephone [facility] ADULT DENTAL [address] [place] [address] Luis Guzman DDS [address] [place] [address] scripted toothpaste Social History Tobacco Use Types [...] Visit [facility] ADULT DENTAL 505 [place] [address] Raza Boo documented as of this encounter Visit Diagnoses Not on filedocumented in this encounter Additional Health Concerns Assessment Noted Time PHQ-9 Depression Total Score: 8 06/05/19 25 2:12 PM EST documented as of this encounter Care Teams Naval Aircrewman Relationship Specialty Start Date End Date Jimmy Boo MD 505 [place] [address] PCP - General Internal Medicine 05/03/13 documented as of this encounter
--- OUTSIDE RECORDS SUMMARY | 2025-02-05 09:00 | XMS_ITS | Encounter Summary ---
Author Organization [employer] Address 75 [facility] 7 [place] [address] Care Team Providers Care Vocational Rehabilitation Administrator Name Role Phone Jimmy Boo MD Primary Care Provider [phone] Encounter Details Date Type Department Care Team ([facility] Contact Info) Description 08/17/2022 Abstract [facility] MED & PEDS 505 [place], [place] [phone] Jimmy Boo MD 505 [place] [address] Social History Tobacco Use Types Packs/Day Years [...] Upcoming Encounters Date Type Department Care Team ([facility] Contact Info) Description 04/01/2025 2:15 PM EST Office Visit [facility] ADULT DENTAL 505 [place] [address] Raza Boo documented as of this encounter [...] EDT Recommended 5 year follow up ( [facility]) us Historical Provider HEALTH MAINTENANCE Final Result documented in this encounter Visit Diagnoses Not on filedocumented in this encounter Care Teams Vocational Rehabilitation Administrator Relationship Specialty Start Date End Date Jimmy Boo MD [address] [place] [address] PCP - General Internal Medicine 05/03/13 documented as of this encounter
--- OUTSIDE RECORDS SUMMARY | 2025-02-05 09:00 | XMS_ITS | Patient Health Record ---
Author Organization [facility] Address [address] [place] [address] Care Team Providers Care Public Policy Associate Name Role Phone Jimmy Boo M.D. Primary Care Provider Un available Keyshawn Lopez Unavailable [phone] Allergies Allergen (clinical drug ingredient) Drug/Non Drug [...] Problem Screening for malignant neoplasm of colon (058714093) Encounter for screening for malignant neoplasm of colon (Z12.11) Active confirmed Problem Screening for malignant neoplasm of rectum (108294742) Encounter for screening for malignant neoplasm of rectum (Z12.12) Active confirmed Problem Family History of Cancer of Colon (Situation) (854994744) Family history of colon cancer (Z80.0) Active confirmed Problem Constipation (54735756) Constipation, unspecified constipation type (K59.00) Active confirmed Problem Diverticulosis of colon (544237693) Diverticulosis of colon (K57.30) Active confirmed Plan Of Treatment Future Test Test Name Order Date COLONOSCOPY 12/19/2015 COLONOSCOPY 03/17/2022 Insurance Providers Payer Name Payer Address Payer Phone Subscriber Number Group Number Insured Name Patient Relationship to Insured Coverage Start Date Coverage End Date [facility] [address] [place] [address] [id number] PATRICIA DOOLEY Self - patient is the insured Medical (General) History Medical History History ICD Code Epilepsy--off seizure meds Multiple sclerosis Vertigo Denies DE,DM,CVA,Lung disease,renal dise ase Hx of breast cancer 2011--ri ght--lumpectomy, XRT , chemo--sees Dr. Samuel at [facility] x 3 Neg. colonoscopy in 2005, 06/2011, and 2016 Surgical History Surgery Date(Month/Year) Urethral diverticulum Right arm surgery BTL Exploratory laparoscopy Ear surgery for tubes Shoulder surgery--right shoulder 09/2015 Right breast cancer --lumpectomy Bone removed from left thumb Carpal tunnel on the left Cystoscopy 02/2022
--- OUTSIDE RECORDS SUMMARY | 2025-02-05 09:00 | XMS_ITS | Encounter Summary ---
Author Organization [employer] Address [address] [place] [address] 7 [place] [address] Care Team Providers Care Job Coach/Job Developer Name Role Phone Jimmy Boo MD Primary Care Provider [phone] Reason for Visit * Reason Comments Med Refill Encounter Details Date Type Department Care Team ([facility] Contact Info) Description 06/19/2022 Refill [facility] MED & PEDS 505 [place] [address] Jimmy Boo MD 505 [place] [address] Primary insomnia Social History Tobacco Use Types [...] Encounters Date Type Department Care Team ([facility] Contact Info) Description 04/01/2025 2:15 PM EST Office Visit [facility] ADULT DENTAL 505 [place] [address] Raza Boo documented as of this encounter Visit Diagnoses Diagnosis Primary insomnia Persistent disorder of initiating or maintaining sleep documented in this encounter Care Teams Job Coach/Job Developer Relationship Specialty Start Date End Date Jimmy Boo MD [address] [place] [address] PCP - General Internal Medicine 05/03/13 documented as of this encounter
--- OUTSIDE RECORDS SUMMARY | 2025-02-05 09:00 | XMS_ITS | Encounter Summary ---
Author Organization [employer] Address [address] [place] [address] 7 [place] [address] Care Team Providers Care Manager Of Maintenance Name Role Phone Jimmy Boo MD Primary Care Provider [phone] Encounter Details Date Type Department Care Team ([facility] Contact Info) Description 03/02/2023 Abstract [facility] ADULT DENTAL [address] [place] [address] Zahira Harris DDS [address] [place], [place] [phone] Social History Tobacco Use Types Packs/Day Years [...] Upcoming Encounters Date Type Department Care Team ([facility] Contact Info) Description 04/01/2025 2:15 PM EST Office Visit [facility] ADULT DENTAL 505 [place] [address] Raza Boo documented as of this encounter Visit Diagnoses Not on filedocumented in this encounter Care Teams Manager Of Maintenance Relationship Specialty Start Date End Date Jimmy Boo MD 505 [place], [place] [phone] PCP - General Internal Medicine 05/03/13 documented as of this encounter
--- OUTSIDE RECORDS SUMMARY | 2025-02-05 09:00 | XMS_ITS | Clinical Summary ---
Author Organization [facility] Address [address] [place] [address] Phone Care Team Providers Care Land Acquisition Specialist Name Role Phone Jimmy Boo MD Primary Care Provider [phone] Allergies Active Allergy Reactions Criticality Noted Date [...] Description 01/23/2025 11:40 AM EDT Office Visit [facility] 175 [facility] [address] [place] [phone] Ton Prather MD Multiple sclerosis (Primary Dx); Other fatigue; Gait abnormality from Last 3 Months Surgical History Surgery Date Site/Laterality Comments OTHER SURGICAL HISTORY PROCEDURE: NV EXC BARTHOLINS GLAND/CYST; COMMENT: Vulva lipoma resection 06/2018 TUBAL LIGATION PROCEDURE: HISTORICAL TUBAL LIGATION OTHER SURGICAL HISTORY PROCEDURE: NV CYSTOURETHROSCOPY W/INTERNAL URETHROTOMY; COMMENT: urethral diverticulum OTHER [...] in female; COMMENT: Right IDC, pT1c N1a, ER/NV pos, 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, s/p partial mastectomy and [...] Care Team (Late st Contact Info) Description 02/06/2025 12:00 PM EST Appointment [facility] MRI [address] [place] [address] 02/06/2025 12:05 PM EST Appointment [facility] [address] [place] [address] 03/27/2025 11:00 AM EST Office Visit [facility] 175 [facility] [address] [place] [phone] Ton Prather MD [address] [place] [address] Health Maintenance Due Date Last Done Comments [...] Procedure Name Priority Date/Time Associated Diagnosis Comments PAP SMEAR Routine 05/10/2022 from Last 3 Months or Most Recently Relevant to Health Maintenance Results * Pap smear (05/10/2022) 05/10/2022 Narrative HISTORICAL TESTING LAB RESULTING AGENCY - 05/21/2022 11:11 AM EST [id number] THINPREP PAP, IMAGED: ATYPICAL SQUAMOUS CELLS OF [...] Most Recently Relevant to Health Maintenance Insurance [facility] Member Subscriber Plan / Payer (Ef fective 2022-Present) Name:LAKISHA STEVENS Relation to Subscriber:Self Name:Lakisha Stevens Payer ID:[id number] Group ID:[id number] Type:Not on file Address: [place] [address] [place] [id number] Care Teams Land Acquisition Specialist Relationship Specialty Start Date End Date Jimmy Boo MD [address] [place] [address] PCP - General Internal Medicine 11/23/19
--- OUTSIDE RECORDS SUMMARY | 2025-02-05 09:00 | XMS_ITS | Encounter Summary ---
Author Organization [employer] Address 75 [facility] 7t [place] [address] Care Team Providers Care Veneer Taping Machine Operator Name Role Phone Jimmy Boo MD Primary Care Provider [phone] Encounter Details Date Type Department Care Team ([facility] Contact Info) Description 06/25/2022 Orders Only [facility] [address] [place], [place] [phone] Gray Barnes MD [address] [place], [place] [phone] Primary insomnia; SOB (shortness of breath) Social [...] Encounters Date Type Department Care Team ([facility] Contact Info) Description 04/01/2025 2:15 PM EST Office Visit [facility] ADULT [facility] [address] [place] [address] Raza Boo documented as of this encounter Visit Diagnoses Diagnosis Primary insomnia Persistent disorder of initiating or maintaining sleep SOB (shortness of breath) Shortness of breath documented in this encounter Care Teams Veneer Taping Machine Operator Relationship Specialty Start Date End Date Jimmy Boo MD [address] [place] [phone] PCP - General Internal Medicine 05/03/13 documented as of this encounter
--- OUTSIDE RECORDS SUMMARY | 2025-02-05 09:00 | XMS_ITS | Clinical Summary ---
Author Organization [employer] Address [address] [place] [address] 7t [place] [address] Care Team Providers Care Remotely Operated Vehicle Name Role Phone Jimmy Boo MD Primary Care Provider [phone] Allergies Active Allergy Reactions Criticality Noted Date [...] the morning. 06/24/19 21 Active sodium chloride (Hester) 0.65 % nasal spray Administer 2 sprays [...] 24 Active Sodium Fluoride 1.1 % cream [place] teeth for 2 minutes, morning and night. [...] BY MOUTH EVERYDAY AT BEDTIME 30 tablet 01/26/20 25 Active zolpidem (Ambien) 10 MG tabletIndicat ions:Primary insomnia TAKE 1 TABLET BY MOUTH EVERYDAY AT BEDTIME 30 tablet 12/25/19 25 025 Discontinued(Re order (will not trigger notification to Pharmacy)) Active Problems Problem Noted Date Diagnosed Date Right hand pain 12/19/2024 Diverticulosis of colon 06/21/2023 Malignant neoplasm of breast 06/21/2023 Anemia 08/13/2013 Asthma 08/13/2013 Gastroesophageal reflux disease 10/21/2011 Depressive disorder 08/05/2011 Multiple sclerosis 08/05/2011 Encounters Date Type Department Care Team Description 01/25/2025 Refill [facility] [address] [place] [address] Jimmy Gaspar MD Primary insomnia 01/11/2025 Orders Only GENERIC EXTERNAL DATA DEPARTMENT Provider, Generic External Data 01/10/2025 Telephone [facility] [address] [place] [address] Jimmy Boo MD Nurse Triage 01/01/2025 Results Follow-Up [address] [address] Subha Kellogg, YVONNE [facility] 12/31/2024 Orders Only [facility] [address] [place] [address] Jimmy Boo MD Subcutaneous nodule (Primary Dx); Chronic pain of right thumb 12/28/2024 Orders Only [facility] [address] [place] [address] Jimmy Boo MD 12/24/2024 Telephone [facility] ADULT D[facility] [address] [place] [address] Luis Guzman DDS scripted toothpaste 12/24/[address] [address] Jimmy Boo MD Primary insomnia 12/19/2024 9:00 AM EDT Office Visit [facility] [address] [place] [address] Jimmy Boo MD Right hand pain (Primary Dx); Subcutaneous nodule 12/19/2024 Travel 12/12/2024 Patient Outreach [address] [address] Jimmy Boo MD Pre-visit Planning (SDOH screening completed on 05/18/24) 11/26/2024 Refill [facility] [address] [place] [address] Jimmy Boo MD Primary insomnia from Last [...] Visit [facility] [address] [place] [address] Raza Boo Health Maintenance Due Date Last Done Comments CT Colonography 1965 FIT DNA/Cologuard 1965 FIT 1965 FOBT 1965 Sigmoidoscopy 1965 Hepatitis B Vaccines (1 of 3 - 19+ 3-dose series) 1984 Pneumococcal Vaccine: 50+ Years (2 of 2 - PCV) 11/26/2012 11/27/2011 Zoster Vaccines (2 of 3) 06/18/2016 04/23/2016 Cervical Cancer Screening 01/23/2024 HPV/Cotest 01/23/2024 01/22/2021, 0808/2019, 08/15/2018 Pap Smear 01/23/2024 01/22/2021, 11/07/2019 Mammogram 01/28/2024 01/27/2023, 01/03, 11/16/2019, Additional history exists COVID-19 Vaccine (3 - season) 2024 12/18/2020, 11/27/2020 Influenza Vaccine (#1) [...] PM EDT Narrative 01/11/2025 5:10 PM EDT [address] [address] [address] Scan Report Signed Patient: Lakisha Hearn MR#: [id number] : 1965 Acct:[id number] Age/Sex: 59 / F ADM Date: 01/11/25 Loc: HO.ED Attending Dr: Ordering Physician: Ghada Chen Date of Service: 01/11/25 Procedure(s): CT abdomen pelvis wo IV con Accession Number(s): [id number] cc: Jimmy Boo MD; Ghada Chen Report Number: [id number]: Total DLP = 330.00 mGy-cm Reason for [...] 01/11/25 1707 DD/ 1600 TD/TT: 01/11/25 1607 Project Landscape Architect: DREW Procedure Note Donotuseinterpreter, Image - 01/11/[address] [place] [address] [address] Scan Report Signed Patient: Lakisha Hearn [facility]#: [id number] : 1965Acct:[id number] Age/Sex: 59 / FADM Date: 01/11/25 Loc: .ED Attending Dr: Ordering Physician: Ghada Chen Date of Service: 01/11/25 Procedure(s): CT abdomen pelvis wo IV con Accession Number(s): [id number] cc: Jimmy Boo MD; Ghada Chen Report Number: [id number]: Total DLP = 330.00 mGy-cm Reason for [...] 01/11/25 1707 DD/ 1600 TD/TT: 01/11/25 1607 Project Landscape Architect: DREW [facility] External Provider IMG CT PROCEDURES Final Result * Urinalysis w/reflex microscopic (01/11/2025 1:55 PM EDT) Color Urine Yellow [facility] Appearance Urine Clear [facility] PH 5.5 5.0 - 9.0 [facility] Glucose Urine UA Negative Negative mg/dL [facility] Urine Blood Negative Negative [facility] Specific Bryson - Urine 1.020 1.005 - 1.025 [facility] Urine Protein Negative Neg-Trace mg/dL [facility] Urine Ketones Trace Negative mg/dL [facility] Nitrite Urine Negative Negative [facility] Leukocyte Esterase Urine Negative Negative [facility] 01/11/2025 1:55 PM EDT 01/11/2025 2:00 PM EDT Narrative [facility] - 01/11/2025 2:07 PM EDT [id number], Clean Catch us Generic External Data Provider LAB URINE ORDERAB LES Final Result Performing Organization Address City/State/[facility] Co de Phone Number [facility] [address] [place] [phone] * (ABNORMAL) CBC auto differential (01/11/2025 1:42 PM EDT) White Blood Count 5.6 4.8 - 10.8 X10*3/uL [facility] Red Blood Count 4.71 4.20 - 5.50 X10*6/uL [facility] Hemoglobin 14.7 12.0 - 16.0 g/dl [facility] Hematocrit 43.6 37.0 - 47.0 % [facility] Mean Corpuscular Volume 92.6 80.0 - 98.0 fL [facility] Mean Corpuscular Hemoglobin 31.2 27.0 - 33.0 pg [facility] Mean Corpuscular HGB Conc 33.7 31.0 - 35.0 g/dl [facility] Red Cell Distribution Width 12.4 11.0 - 16.0 % [facility] Platelet Count 213 160 - 400 X10*3/uL [facility] Mean Platelet Volume 9.1(L) 9.4 - 12.3 fL [facility] Neutrophils Percent Auto 69.6 45 - 73 % [facility] Imm Gran Pct Auto 0.2 0.0 - 0.4 % [facility] Lymphocytes Percent Auto 19.4(L) 20 - 40 % [facility] Monocytes Percent Auto 9.2 2 - 11 % [facility] Eosinophils Percent Auto 1.1 0 - 4 % [facility] Basophils Percent Auto 0.5 0 - 2 % [facility] NRBC Pct Auto 0.0 0.0 - 0.2 /100WBC [facility] Neutrophils Absolute Auto 3.9 2.0 - 8.3 x10*3/uL [facility] Imm Gran Abs Auto 0.01 0.00 - 0.03 X10*3/uL [facility] Lymphocytes Absolute Auto 1.1(L) 1.2 - 4.9 X10*3/uL [facility] Monocytes Absolute Auto 0.5 0.1 - 1.2 X10*3/uL [facility] Eosinophils Absolute Auto 0.1 0.0 - 0.4 X10*3/uL [facility] Basophils Absolute Auto 0.0 0.0 - 0.2 X10*3/uL [facility] NRBC Abs Auto 0.000 0.0 - 0.012 X10*3/uL [facility] 01/11/2025 1:42 PM EDT 01/11/2025 1:45 PM EDT us Generic External Data Provider LAB BLOOD ORDERAB LES Final Result [facility] [address] [place], [place] [phone] * hCG, Total, Quantitative (01/11/2025 1:42 PM EDT) HCG Quantitative <2 mIU/mL [facility] Comment:Weeks post LMP Appro ximate hCG(Last Menstrual Period) Range (mIU/ml)3 - 4 weeks 9 - 1304 - 5 weeks 75 - 2,6005 - 6 weeks 850 - 20,8006 - 7 weeks 4000 - 100,2007 - 12 weeks 11,500 - 289,38376 - 16 weeks 18,300 - 137,36151 - 29 weeks (2nd trimester) 1,400 - 53,97312 - 41 weeks (3rd trimester) 940 - [...] ORDERAB LES Final Result Performing Organization Address [facility] Co de Phone Number [facility] [address] [place] [phone] * Magnesium (01/11/2025 1:42 PM EDT) Magnesium 2.1 1.6 - 2.6 mg/dL [facility] 01/11/2025 1:42 PM EDT 01/11/2025 1:45 PM EDT Generic External Data Provider LAB BLOOD ORDERAB LES Final Result Performing Organization Address [facility] Co de Phone Number [facility] [address] [place] [phone] * Lipase (01/11/2025 1:42 PM EDT) Lipase 24 8 - 78 U/L [facility] 01/11/2025 1:42 PM EDT 01/11/2025 1:45 PM EDT Generic External Data Provider LAB BLOOD ORDERAB LES Final Result Performing Organization Address [facility] Co de Phone Number [facility] [address] [place] [address] [phone] * Hepatic Function Panel (01/11/2025 1:42 PM EDT) Pathologist [facility] Bilirubin, Total 0.5 0.0 - 1.0 mg/dL [facility] Bilirubin, Direct 0.2 0.0 - 0.5 mg/dL [facility] Aspartate Amino Transferase 20 5 - 31 U/L [facility] Alanine Aminotransferase 14 0 - 31 U/L [facility] Total Protein 7.0 6.5 - 8.0 g/dL [facility] Albumin Level 4.6 3.5 - 5.0 g/dL [facility] Alkaline Phosphatase 78 39 - 117 U/L [facility] 01/11/2025 1:42 PM EDT 01/11/2025 1:45 PM EDT us Generic External Data Provider LAB BLOOD ORDERAB LES Final Result [facility] [address] [place] [address] [phone] * (ABNORMAL) Basic Metabolic Panel (01/11/2025 1:42 PM EDT) [facility] Sodium 140 135 - 145 mmol/L [facility] Potassium 4.4 3.3 - 5.1 mmol/L [facility] Chloride 105 96 - 108 mmol/L [facility] Carbon Dioxide 29 22 - 29 mmol/L [facility] Anion Gap 10(L) 12 - 20 [facility] Urea Nitrogen (BUN) 12 9 - 16 mg/dL [facility] Creatinine, Serum 0.66 0.5 - 1.4 mg/dL [facility] Creatinine Clr Calc Pharmacy 68.9 [facility] Comment:Provided height and weight: 165.1 cm,47.536 kg.eGFR (calculated from the MDRD study equation) and eCrCl(calculated from the Cockcroft-Gault equation) are based ondifferent parameters and may not yield comparable results.If eCrCl result is absurd, please check patient'sheight/weight. Estimated Glomerular Filt Rate >60 [facility] Comment:Chronic Kidney Disea se: Estimated GFR < 60 mL/min/1.40n3Nmrena Kidney Disease: Estimated GFR < 15 mL/min/1.73m2 Glucose 91 60 - 115 mg/dL [facility] Calcium 9.7 8.4 - 10.2 mg/dL [facility] 01/11/2025 1:42 PM EDT 01/11/2025 1:45 PM EDT us Generic External Data Provider LAB BLOOD ORDERAB LES Final Result Performing Organization Address City/State/[facility] Co de Phone Number [facility] [address] [place] [address] [phone] * US Pelvis Limited (12/29/2024 3:49 PM EDT) Anatomical Region Laterality Modality Pelvis Ultrasound 12/29/2024 3:49 PM EDT Narrative 12/29/2024 3:50 PM EDT [place] [address] Ultrasound Report Signed Patient: Lakisha Hearn MR#: [id number] : 1965 Acct:[id number] Age/Sex: 59 / F ADM Date: 12/28/24 Loc: .US Attending Dr: Jimmy Boo MD Ordering Physician: Jimmy Boo MD Date of Service: 12/28/24 Procedure(s): US pelvic limited Accession Number(s): [id number] cc: Jimmy Boo MD Reason for Exam: [...] OV> 12/29/24 1550 DD/ 1549 TD/TT: 12/29/24 1549 Project Landscape Architect: Procedure Note Donotuseinterpreter, Image - 12/29/2024 [place] [address] Ultrasound Report Signed Patient: Lakisha Hearn AMR#: [id number] : 1965Acct:[id number] Age/Sex: 59 / FADM Date: 12/28/24 Loc: HO.US Attending Dr: Jimmy Boo MD Ordering Physician: Jimmy Boo MD Date of Service: 12/28/24 Procedure(s): US pelvic limited Accession Number(s): [id number] cc: Jimmy Boo MD Reason for Exam: [...] OV> 12/29/24 1550 DD/ 1549 TD/TT: 12/29/24 1549 Project Landscape Architect: Jimmy Boo MD IMG US PROCEDURES Edited Re sult - Final * XR Hand 3+ Views Right (12/19/2024 10:14 AM EDT) Anatomical Region Laterality Modality Upper Extremities, Hand Right Radiogra phic Imaging 12/19/2024 10:1 4 AM EDT Narrative 12/19/2024 10:24 AM EDT [place] [address] XRay Report Signed Patient: Lakisha Hearn MR#: [id number] : 1965 Acct:[id number] Age/Sex: 59 / F ADM Date: 12/19/24 Loc: HO.XRAY Attending Dr: Jimmy Boo MD Ordering Physician: Jimmy Boo MD Date of Service: 12/19/24 Procedure(s): XR hand RT min 3V Accession Number(s): [id number] cc: Jimmy Boo MD Reason for Exam: [...] 12/19/24 1021 DD/ 1014 TD/TT: 12/19/24 1017 Project Landscape Architect: Procedure Note Donotuseinterpreter, Image - 12/19/[address] [address] XRay Report Signed Patient: Lakisha Hearn AMR#: [id number] : 1965Acct:[id number] Age/Sex: 59 / FADM Date: 12/19/24 Loc: HO.KING Attending Dr: Jimmy Boo MD Ordering Physician: Jimmy Boo MD Date of Service: 12/19/24 Procedure(s): XR hand RT min 3V Accession Number(s): [id number] cc: Jimmy Boo MD Reason for Exam: [...] 12/19/24 1021 DD/ 1014 TD/TT: 12/19/24 1017 Project Landscape Architect: us Jimmy Boo MD IMG XR PROCEDURES Edited Re sult - Final * Mammography (01/27/2023) Mammogram negative Anatomical Region Laterality Modality Other Narrative 01/27/2023 Bi rads -negative us Jimmy Boo MD HEALTH MAINTENANCE Final Re sult * Hepatitis C Antibody Reflex (11/09/2022 1:51 PM EDT) Hepatitis C Antibody Nonreactive Nonreactive [facility] Comment:Antibodies to HCV no t detected; does not exclude early acuteHCV infection. 11/09/2022 1:51 PM EDT 11/09/2022 5:49 PM EDT [facility] LAB BLOOD ORDERABLES Rach l Result Performing Organization Address [facility] Co de Phone Number [facility] [address] [place] [phone] * HIV Ab/Ag ([facility]) (11/09/2022 1:51 PM EDT) Pathologist [facility] HIV AB/AG Nonreactive Nonreactive [facility] Comment:HIV-1 p24 Ag and/or HIV-1/HIV-2 Ab not detected.A test result that is nonreactive does not exclude thepossibility of exposure to or infection with HIV-1 and/orHIV-2. Nonreactive results in this assay for individualswith prior exposure to HIV-1 and/or HIV-2 may be due toantigen and antibody levels that are below the limit ofdetection of this assay.[employer] HIV Ag/Ab Combo assay result andsupplemental assay results should be interpreted inconjunction with the patient's clinical presentation,history and other laboratory results. If the results areinconsistent with clinical evidence, additional testing issuggested to confirm the result. 11/09/2022 1:51 PM EDT 11/09/2022 5:49 PM EDT [facility] BLOOD ORDERABLES Rach l Result Performing Organization Address [facility] Co de Phone Number [facility] [address] [place] [address] [phone] * Hm Colonoscopy (06/04/2022) Pathologist [facility] Colonoscopy Normal Normal 06/04/2022 Jacey Donnelly - 06/04/2022 2:23 PM EST Recommended 5 year follow up due to family hx of cancer ( see scanned report ) us Historical Provider MD HEALTH MAINTENANCE Final Result [...] has been evaluated with computer assisted technology. [facility] Court Orderly: SEE COMMENT [facility] Comment: DCR, CT(ASCP) CT screening location: [place] [address] HPV nRNA E6/E7 Not Detected Not Detected [facility] Comment: Methodology: Clinical Nursing Instructor-Mediated Amplification This assay detects E6/E7 viral messenger RNA (mRNA) from 14 high-risk HPV types (16,18,31,33,35,39,45,51,52,56,58,59,66,68). The analytical performance characteristics of this assay have been determined by [employer]. The modifications have not been cleared or approved by the FDA. This assay has been validated pursuant to the CLIA regulations and is used for clinical purposes. For additional information, please refer to http://education.TimeBridge.Terranova/faq/UPX970q0 (This link if provided for information/ educational purposes only.) Interpretation/Res ult: SEE COMMENT [facility] Comment: Negative for intraepithelial lesion [...] Venecia NEFF LAB PATHOLOGY ORDERABLES Final Result [facility] [address] from Last 3 Months or Most Recently Relevant to Health Maintenance Insurance [place] [phone] Member Subscriber Plan / Payer (Ef fective 2022-Present) Name:Lakisha Hearn Relation to Subscriber:Self Name:Lakisha Hearn Payer ID:Not on file Type:Not on file Address: [place] [phone] Care Teams Remotely Operated Vehicle Relationship Specialty Start Date End Date Jimmy Boo MD [address] [place] [phone] PCP - General Internal Medicine 05/03/13
--- OUTSIDE RECORDS SUMMARY | 2025-02-05 09:00 | XMS_ITS | Encounter Summary ---
Author Organization [employer] Address [address] [place] [address] 7 [place] [address] Care Team Providers Care Senior Education Specialist Name Role Phone Jimmy Boo MD Primary Care Provider [phone] Reason for Visit * Reason Comments Med Refill Encounter Details Date Type Department Care Team ([facility] Contact Info) Description 06/24/2022 Refill [facility] [address] [place] [address] Jimmy Boo MD [address] [place] [address] Primary insomnia Social History Tobacco Use Types [...] Upcoming Encounters Date Type Department Care Team ([facility] Contact Info) Description 04/01/2025 2:15 PM EST Office Visit [facility] [address] [place] [address] Raza Boo documented as of this encounter Visit Diagnoses Diagnosis Primary insomnia Persistent disorder of initiating or maintaining sleep documented in this encounter Care Teams Senior Education Specialist Relationship Specialty Start Date End Date Jimmy Boo MD [address] [place] [phone] PCP - General Internal Medicine 05/03/13 documented as of this encounter
--- OUTSIDE RECORDS SUMMARY | 2025-02-05 09:00 | XMS_ITS | Encounter Summary ---
Author Organization [employer] Address [address] [facility] 7t [place] [address] Care Team Providers Care Financial Cost Analyst Name Role Phone Jimmy Boo MD Primary Care Provider [phone] Reason for Visit * Reason Onset Date Comments Dr. Guzman refill Sodium Flouride 5000 cream too thpaste 07/12/2024 Encounter Details Date Type Department Care Team ([facility] Contact Info) Description 07/12/2024 Telephone [facility] [address] [place] [address] Luis Guzman DDS [address] [place] [address] Dr. Guzman refill Sodium Flouride 5000 cream [...] [facility] [address] [place] [address] Raza Boo documented as of this encounter Visit Diagnoses Not on filedocumented in this encounter Additional Health Concerns Assessment Noted Time PHQ-9 Depression Total Score: 8 06/05/19 25 2:12 PM EST documented as of this encounter Care Teams Financial Cost Analyst Relationship Specialty Start Date End Date Jimmy Boo MD [address] [place] [address] PCP - General Internal Medicine 05/03/13 documented as of this encounter
--- OUTSIDE RECORDS SUMMARY | 2025-02-05 09:00 | XMS_ITS | Encounter Summary ---
Author Organization [employer] Address [address] [facility] 7 [place] [address] Care Team Providers Care Tool Lathe Operator Name Role Phone Jimmy Boo MD Primary Care Provider [phone] Reason for Visit * Reason Onset Date Comments Medication Question 06/21/2022 Encounter Details Date Type Department Care Team ([facility] [address] [facility] Contact Info) Description 06/21/2022 Telephone [facility] CHC MED & PEDS [address] [place], [place] [phone] Jimmy Boo MD [address] [place], [place] [phone] Medication Question Social History Tobacco Use Types [...] out. Pt requesting Rx be sent to [facility] pharmacy on [facility]. * Telephone Encounter - Sangeetha Glenys - 06/21/2022 2:27 PM EDT Tc from pt requesting for medication ibuprofen . States does not want the 800mg . Would like to know if she can get 600 mg instead . documented in this encounter Plan of Treatment Upcoming Encounters Date Type Department Care Team ([facility] st Contact Info) Description 04/01/2025 2:15 PM EST Office Visit [facility] ADULT DENTAL [address] [place] [address] Raza Boo documented as of this encounter Visit Diagnoses Diagnosis Primary insomnia Persistent disorder of initiating or maintaining sleep SOB (shortness of breath) Shortness of breath documented in this encounter Care Teams Tool Lathe Operator Relationship Specialty Start Date End Date Jimmy Boo MD [address] [place] [address] PCP - General Internal Medicine 05/03/13 documented as of this encounter
--- OUTSIDE RECORDS SUMMARY | 2025-02-05 09:00 | XMS_ITS | Encounter Summary ---
Author Organization [employer] Address [address] [place] [address] 7 [place] [address] Care Team Providers Care Business Continuity Analyst Name Role Phone Jimmy Boo MD Primary Care Provider [phone] Reason for Referral * Consultation (Routine) - Closed Specialty Diagnoses / Procedures Referred By Contac t Referred To Contact Neurology Diagnoses Chronic tension-type headache, not intractable Jimmy Boo MD [address] [place] [address] Phone: tel: fax: Rory Garber MD [address] [place] [address] [place] [address] Phone: tel: fax: Referral ID Status Reason Start Date Expiration Date V isits Requested Visits Authorized [id number] Closed Specialty Services Required 03/18/2024 03/18/2025 1 1 Encounter Details Date Type Department Care Team (Late st Contact Info) Description 03/18/2024 Orders Only [facility] CHC MED & PEDS [address] [place], [place] [phone] Jimmy Boo MD [address] [place], [place] [phone] Chronic tension-type headache, not intractable (Primary Dx) [...] [facility] ADULT DENTAL [address] [place] [address] Raza Boo Scheduled Referrals Name Type Priority Associated Diagnoses Orde r Schedule Referral to Neurology Outpatient Referral Routine Chronic tension-type headache, not intractable Expected: 03/18/2024 (Approximate), Expires: 03/18/2025 documented as of this encounter Visit Diagnoses Diagnosis Chronic tension-type headache, not intractable- Primary Chronic tension type headache documented in this encounter Care Teams Business Continuity Analyst Relationship Specialty Start Date End Date Jimmy Boo MD [address] [place] [address] PCP - General Internal Medicine 05/03/13 documented as of this encounter
--- OUTSIDE RECORDS SUMMARY | 2025-02-05 09:00 | XMS_ITS | Encounter Summary ---
Author Organization [email or web address] Address [address] [facility] [address] [place] [address] Care Team Providers Care Credit Compliance Officer Name Role Phone Jimmy Boo MD Primary Care Provider [phone] Reason for Visit * Reason Comments Med Refill Encounter Details Date Type Department Care Team ([facility] Contact Info) Description 08/27/2023 Refill [facility] CHC ADULT DENTAL [address] [place], [place] [phone] Mary Jane Massey DMD Social History Tobacco [...] [facility] ADULT D[facility] [address] [place] [address] Raza Boo documented as of this encounter Visit Diagnoses Not on filedocumented in this encounter Care Teams Credit Compliance Officer Relationship Specialty Start Date End Date Jimmy Boo MD [address] [place] [address] PCP - General Internal Medicine 05/03/13 documented as of this encounter
--- OUTSIDE RECORDS SUMMARY | 2025-02-05 09:00 | XMS_ITS | Encounter Summary ---
Author Organization [employer] Address [address] 7t [place] [address] Care Team Providers Care Crowd Controller Name Role Phone Jimmy Boo MD Primary Care Provider [phone] Encounter Details Date Type Department Care Team ([facility] Contact Info) Description 08/30/2023 Orders Only [facility] CHC MED & PEDS [address] [place], [place] [phone] ProviderYnes MD Social History Tobacco Use Types [...] Description 04/01/2025 2:15 PM EST Office Visit [facility] ADULT DENTAL [address] [place] [address] Raza Boo documented as of this encounter [...] on filedocumented in this encounter Care Teams Crowd Controller Relationship Specialty Start Date End Date Jimmy Boo MD [address] [place] [address] PCP - General Internal Medicine 05/03/13 documented as of this encounter
--- OUTSIDE RECORDS SUMMARY | 2025-02-05 09:00 | XMS_ITS | Encounter Summary ---
Author Organization [employer] [facility] Address [address] [place] [address] 7 [place] [address] Care Team Providers Care Pay Clerk Name Role Phone Jimmy Boo MD Primary Care Provider [phone] Reason for Visit * Reason Onset Date Comments rct appt 02/17/2023 Encounter Details Date Type Department Care Team ([facility] Contact Info) Description 02/17/2023 Telephone [facility] ADULT DENTAL [address] [place] [address] Tricia Davis DDS rct appt Social History [...] Upcoming Encounters Date Type Department Care Team ([facility] Contact Info) Description 04/01/2025 2:15 PM EST Office Visit [facility] ADULT DENTAL [address] [place] [address] Raza Boo documented as of this encounter Visit Diagnoses Not on filedocumented in this encounter Care Teams Pay Clerk Relationship Specialty Start Date End Date Jimmy Boo MD [address] [place] [address] PCP - General Internal Medicine 05/03/13 documented as of this encounter
--- OUTSIDE RECORDS SUMMARY | 2025-02-05 09:00 | XMS_ITS | Encounter Summary ---
Author Organization [employer] Address [address] [place] [address] 7 [place] [address] Care Team Providers Care Teacher Dancing Name Role Phone Jimmy Boo MD Primary Care Provider [phone] Encounter Details Date Type Department Care Team ([facility] Contact Info) Description 06/21/2023 Orders Only [facility] MED & PEDS [address] [place], [place] [phone] Jimmy Boo MD [address] [place], [place] [phone] Primary insomnia Social History Tobacco Use Types [...] Team ([facility] Contact Info) Description 04/01/2025 2:15 PM EST Office Visit [facility] ADULT DENTAL [address] [place], [place] [phone] Raza Boo documented as of this encounter Visit Diagnoses Diagnosis Primary insomnia Persistent disorder of initiating or maintaining sleep documented in this encounter Care Teams Teacher Dancing Relationship Specialty Start Date End Date Jimmy Boo MD [address] [place] [address] PCP - General Internal Medicine 05/03/13 documented as of this encounter
--- OUTSIDE RECORDS SUMMARY | 2025-02-05 09:00 | XMS_ITS | Encounter Summary ---
Author Organization [employer] Address [address] 7[address] [place] [address] Care Team Providers Care Antique Repairer Name Role Phone Jimmy Boo MD Primary Care Provider [phone] Reason for Visit * Reason Comments Med Refill Encounter Details Date Type Department Care Team ([facility] st Contact Info) Description 07/27/2024 Refill [facility] CHC ADULT DENTAL [address] [place] [address] Luis Guzman DDS [address] [place] [address] Social History Tobacco Use Types Packs/Day Years [...] [facility] AD[facility] [address] [place] [address] Raza Boo documented as of this encounter Visit Diagnoses Not on filedocumented in this encounter Additional Health Concerns Assessment Noted Time PHQ-9 Depression Total Score: 8 06/05/19 25 2:12 PM EST documented as of this encounter Care Teams Antique Repairer Relationship Specialty Start Date End Date Jimmy Boo MD [address] [place] [address] PCP - General Internal Medicine 05/03/13 documented as of this encounter
--- OUTSIDE RECORDS SUMMARY | 2025-02-05 09:00 | XMS_ITS | Encounter Summary ---
Author Organization [employer] Address [address] [place] [address] 7 [place] [address] Care Team Providers Care Linux Kernel Engineer Name Role Phone Jimmy Boo MD Primary Care Provider [phone] Reason for Referral * Imaging (Routine) - Authorized Specialty Diagnoses / Procedures Referred By Lonny harris Referred To Contact Radiology Diagnoses Subcutaneous nodule Chronic pain of right thumb Procedures US SOFT TISSUE Jimmy Boo MD [address] [place] [address] Phone: tel: fax: [address] Phone: tel: fax: Referral ID Status Reason Start Date Expiration Date V isits Requested Visits Authorized [id number] Authorized 01/01/2025 01/01/2026 1 1 * Consultation (Urgent) - Authorized Specialty Diagnoses / Procedures Referred By Lonny harris Referred To Contact Obstetrics and Gynecology Diagnoses Subcutaneous nodule Jimmy Boo MD [address] [place] [address] Phone: tel: fax: Zack Gray MD [address] [place] [address] [place] [address] Phone: tel: fax: Referral ID Status Reason Start Date Expiration Date Visits Requested Visits Authorized [id number] Authorized Specialty Services Required 12/31/2024 12/31/2025 1 1 Encounter Details Date Type Department Care Team ([facility] st Contact Info) Description 12/31/2024 Orders Only [facility] CHC MED & PEDS [address] [place] [address] Jimmy Boo MD [address] [place] [address] Subcutaneous nodule (Primary Dx); Chronic pain of [...] Encounters Date Type Department Care Team ([facility] st Contact Info) Description 04/01/2025 2:15 PM EST Office Visit [facility] ADULT DENTAL [address] [place] [address] Raza Boo Scheduled Orders Name Type Priority [...] documented as of this encounter Care Teams Linux Kernel Engineer Relationship Specialty Start Date End Date Jimmy Boo MD [address] [place] [address] PCP - General Internal Medicine 05/03/13 documented as of this encounter
--- OUTSIDE RECORDS SUMMARY | 2025-02-05 09:00 | XMS_ITS | Encounter Summary ---
Author Organization [employer] Address [address] [facility] [address] 7[address] [place] [address] Care Team Providers Care Shuttlecock Feather Trimmer Name Role Phone Jimmy Boo MD Primary Care Provider [phone] Reason for Visit * Reason Comments Med Refill Encounter Details Date Type Department Care Team ([facility] Contact Info) Description 10/03/2023 Refill [facility] CHC ADULT DENTAL [address] [place], [place] [phone] Mary Jane Massey DMD Social History Tobacco [...] [facility] [address] [place] [address] Raza Boo documented as of this encounter Visit Diagnoses Not on filedocumented in this encounter Care Teams Shuttlecock Feather Trimmer Relationship Specialty Start Date End Date Jimmy Boo MD [address] [place] [address] PCP - General Internal Medicine 05/03/13 documented as of this encounter
== END 2025-02-05 09:19 | disposition home or self-care (01) ==
LOC: HO.HWS 08:35
PROVIDERS: PCP Internal Medicine; Visit Provider Obstetrics & Gynecology
DX: R10.20 Pelvic and perineal pain unspecified side (principal)
CPT/HCPCS: 99203

== ENCOUNTER → 2025-02-07 13:13 | Outpatient (BNV) | payer OTHER, SELFPAY | PROVIDERS: PCP Internal Medicine; Visit Provider Obstetrics & Gynecology | DX: R31.29 Other microscopic hematuria (principal) | CPT/HCPCS: 81002 ==

== ENCOUNTER 2025-02-07 13:32 | Outpatient (REF) | payer OTHER, SELFPAY ==
--- OUTSIDE RECORDS SUMMARY | 2025-02-06 11:51 | XMS_ITS | Encounter Summary ---
Author Organization [facility] Address [address] [place] [address] Care Team Providers Care Grease And Tallow Pumper Name Role Phone Jimmy Boo MD Primary Care Provider [phone] Reason for Referral * Imaging (Routine) - Pending Review Specialty Diagnoses / Procedures Referred By Lonny harris Referred To Contact Radiology Diagnoses Multiple sclerosis Procedures MR Thoracic Spine wo and w Contrast Ton Prather MD [address] [place] [address] Phone: tel: fax: [facility] Referral ID Status Reason Start Date Expiration Date V isits Requested Visits Authorized [id number] Pending Review 01/23/2025 01/23/2026 1 1 Reason for Visit * Imaging (Routine) - Pending Review Specialty Diagnoses / Procedures Referred By Lonny harris Referred To Contact Radiology Diagnoses Multiple sclerosis Procedures MR Thoracic Spine wo and w Contrast Ton Prather MD [address] [place] [address] Phone: tel: fax: [facility] Referral ID Status Reason Start Date Expiration Date V isits Requested Visits Authorized [id number] Pending Review 01/23/2025 01/23/2026 1 1 Encounter Details Date Type Department Care Team (Latest Contact Info) Description 02/06/2025 11:51 AM EST - 02/06/2025 11:59 PM EST Hospital Encounter [facility] MRI [address] [place] [phone] Multiple sclerosis Discharge Disposition: Home or Self Care Social History Tobacco Use Types Packs/Day Years [...] on file documented as of this encounter Medications at Time of Discharge albuterol HFA (PROAIR HFA ; PROVENTIL HFA ; VENTOLIN HFA) 90 mcg/actuation inhaler Inhale 2 puffs by mouth if needed for wheezing or shortness of breath. 12/14/2024 zolpidem (AMBIEN) 10 mg tablet Take 1 tablet (10 mg total) by mouth at bedtime. Max Daily Amount: 10 mg documented as of this encounter Discharge Disposition Disposition Code Departure Means Destination Home or Self Care documented in this encounter Plan of Treatment Upcoming Encounters Date Type Department Care Team (Late st Contact Info) Description 03/27/2025 11:00 AM EST Office Visit [facility] [address] [phone] Ton Prather MD [address] [place] [address] Pending Results Name Type Priority Associated Diagnoses Date /Time MR Thoracic Spine wo and w Contrast Imaging Routine Multiple sclerosis 02/06/2025 1:53 PM EST Scheduled Orders Name Type Priority Associated Diagnoses Orde r Schedule MR Thoracic Spine wo and w Contrast Imaging Routine Multiple sclerosis Once for 1 Occurrences starting 02/06/2025 until 02/06/2025 documented as of this encounter Visit Diagnoses Diagnosis Multiple sclerosis documented in this encounter Administered Medications Inactive Administered Medications - up to 3 most recent administrations Medication Order MAR Action Action Date Dose Rate Site gadoterate meglumine (CLARISCAN, DOTAREM) injection 10 mL 10 mL, intravenous, Once in imaging, Starting on Tue02/06/25 at 1351, For 1 dose Given 02/06/2025 1:51 PM EST 10 mL documented in this encounter Orders Medications Ordered That Jay ht Not Have Been Administered Count Last Ordered Date First Ordered Date gadoterate meglumine (ANT CAN, DOTAREM) injection 10 mL 1 02/06/2025 documented in this encounter Care Teams Grease And Tallow Pumper Relationship Specialty Start Date End Date Jimmy Boo MD [address] [place] [address] PCP - General Internal Medicine 11/23/19 documented as of this encounter
--- OUTSIDE RECORDS SUMMARY | 2025-02-06 11:52 | XMS_ITS | Encounter Summary ---
Author Organization [facility] Address [address] [place] [address] Care Team Providers Care Environmental Issues Instructor Name Role Phone Jimmy Boo MD Primary Care Provider [phone] Reason for Referral * Imaging (Routine) - Pending Review Specialty Diagnoses / Procedures Referred By Lonny harris Referred To Contact Radiology Diagnoses Multiple sclerosis Procedures MR Cervical Spine wo and w Contrast Ton Prather MD [address] [place] [address] Phone: tel: fax: [facility] Referral ID Status Reason Start Date Expiration Date V isits Requested Visits Authorized [id number] Pending Review 01/23/2025 01/23/2026 1 1 Reason for Visit * Imaging (Routine) - Pending Review Specialty Diagnoses / Procedures Referred By Lonny harris Referred To Contact Radiology Diagnoses Multiple sclerosis Procedures MR Cervical Spine wo and w Contrast Ton Prather MD [address] [place] [address] Phone: tel: fax: [facility] Referral ID Status Reason Start Date Expiration Date V isits Requested Visits Authorized [id number] Pending Review 01/23/2025 01/23/2026 1 1 Encounter Details Date Type Department Care Team (Latest Contact Info) Description 02/06/2025 11:52 AM EST - 02/06/2025 11:59 PM EST Hospital Encounter [facility] MRI [address] [place] [phone] Multiple sclerosis Discharge Disposition: Home or Self [...] Description 03/27/2025 11:00 AM EST Office Visit [facility] [address] [phone] Ton Prather MD [address] [place] [address] Pending Results Name Type Priority Associated Diagnoses Date /Time MR Cervical Spine wo and w Contrast Imaging Routine Multiple sclerosis 02/06/2025 1:52 PM EST Scheduled Orders Name Type Priority Associated Diagnoses Orde r Schedule MR Cervical Spine wo and w Contrast Imaging Routine Multiple sclerosis Once for 1 Occurrences starting 02/06/2025 until 02/06/2025 documented as of this encounter Visit Diagnoses Diagnosis Multiple sclerosis documented in this encounter Care Teams Environmental Issues Instructor Relationship Specialty Start Date End Date Jimmy Boo MD [address] [place] [address] PCP - General Internal Medicine 11/23/19 documented as of this encounter
--- OUTSIDE RECORDS SUMMARY | 2025-02-07 16:27 | XMS_ITS | Encounter Summary ---
Author Organization [employer] Address [address] [facility] 7t [place] [address] Care Team Providers Care Telephone Clerk Telegraph Office Name Role Phone Jimmy Boo MD Primary Care Provider [phone] Encounter Details Date Type Department Care Team ([facility] st Contact Info) Description 04/25/2024 Orders Only [facility] MED & PEDS [address] [place], [place] [phone] Jimmy Boo MD [address] [place] [address] Primary insomnia Social History Tobacco Use Types [...] 04/01/2025 2:15 PM EST Office Visit [facility] ADULT DENTAL [address] [place] [address] Raza Boo documented as of this encounter Visit Diagnoses Diagnosis Primary insomnia Persistent disorder of initiating or maintaining sleep documented in this encounter Care Teams Telephone Clerk Telegraph Office Relationship Specialty Start Date End Date Jimmy Boo MD [address] [place] [address] PCP - General Internal Medicine 05/03/13 documented as of this encounter
--- OUTSIDE RECORDS SUMMARY | 2025-02-07 16:27 | XMS_ITS | Encounter Summary ---
Author Organization [employer] Address [address] [place] [address] 7 [place] [address] Care Team Providers Care Sign Language Teacher Name Role Phone Jimmy Boo MD Primary Care Provider [phone] Reason for Referral * Consultation (Routine) - Closed Specialty Diagnoses / Procedures Referred By Contac t Referred To Contact Neurology Diagnoses Chronic tension-type headache, not intractable Jimmy Boo MD [address] [place] [address] Phone: tel: fax: Rory Garber MD [address] [place] [address] [place] [address] Phone: tel: fax: Referral ID Status Reason Start Date Expiration Date V isits Requested Visits Authorized [id number] Closed Specialty Services Required 03/18/2024 03/18/2025 1 1 Encounter Details Date Type Department Care Team (Late st Contact Info) Description 03/18/2024 Orders Only [facility] MED & PEDS [address] [place], [place] [phone] Jimmy Boo MD [address] [place], [place] [phone] Chronic tension-type headache, not intractable (Primary Dx) [...] Visit [facility] ADULT DENTAL [address] [place] [address] Raza Boo Scheduled Referrals Name Type Priority Associated Diagnoses Orde r Schedule Referral to Neurology Outpatient Referral Routine Chronic tension-type headache, not intractable Expected: 03/18/2024 (Approximate), Expires: 03/18/2025 documented as of this encounter Visit Diagnoses Diagnosis Chronic tension-type headache, not intractable- Primary Chronic tension type headache documented in this encounter Care Teams Sign Language Teacher Relationship Specialty Start Date End Date Jimmy Boo MD [address] [place] [address] PCP - General Internal Medicine 05/03/13 documented as of this encounter
--- OUTSIDE RECORDS SUMMARY | 2025-02-07 16:27 | XMS_ITS | Encounter Summary ---
Author Organization [employer] Address [address] [facility] 7t [place] [address] Care Team Providers Care Tub Mender Name Role Phone Jimmy Boo MD Primary Care Provider [phone] Reason for Visit * Reason Comments Med Refill Encounter Details Date Type Department Care Team ([facility] st Contact Info) Description 12/28/2023 Refill [facility] MEDICINE [address] [place] [address] Jimmy Boo MD [address] [place] [address] Primary insomnia Social History Tobacco Use Types [...] t he electric, gas, oil or water [employer] threatened to shut off services in your [...] [facility] ADULT DENTAL [address] [place] [address] Raza Boo documented as of this encounter Visit Diagnoses Diagnosis Primary insomnia Persistent disorder of initiating or maintaining sleep documented in this encounter Care Teams Tub Mender Relationship Specialty Start Date End Date Jimmy Boo MD [address] [place] [address] PCP - General Internal Medicine 05/03/13 documented as of this encounter
--- OUTSIDE RECORDS SUMMARY | 2025-02-07 16:27 | XMS_ITS | Encounter Summary ---
Author Organization [employer] Address [address] [facility] 7t [place] [address] Care Team Providers Care Industrial Equipment Wirer Name Role Phone Jimmy Boo MD Primary Care Provider [phone] Reason for Visit * Reason Onset Date Comments Nurse Triage 07/02/2024 Encounter Details Date Type Department Care Team ([facility] st Contact Info) Description 07/02/2024 Telephone [facility] [address] [place] [address] Jimmy Boo MD [address] [place] [address] Nurse Triage Social History Tobacco Use Types [...] Pt had lumbar puncture on 06/14/24 at [facility] and has had some increased back pain since then. Pt denies redness, swelling at site but, is concerned as to the length of time having pain. ASK apt [facility] today at 320pm. Pt agrees with [...] acuity questions The caller accepted this outcome. [phone] Pt had lumbar procedure on june 14. documented in this encounter Plan of Treatment Upcoming Encounters Date Type Department Care Team ([facility] st Contact Info) Description 04/01/2025 2:15 PM EST Office Visit [facility] ADULT [facility] [address] [place] [address] Raza Boo documented as of this encounter Visit Diagnoses Not on filedocumented in this encounter Additional Health Concerns Assessment Noted Time PHQ-9 Depression Total Score: 8 06/05/19 25 2:12 PM EST documented as of this encounter Care Teams Industrial Equipment Wirer Relationship Specialty Start Date End Date Jimmy Boo MD [address] [place] [address] PCP - General Internal Medicine 05/03/13 documented as of this encounter
--- OUTSIDE RECORDS SUMMARY | 2025-02-07 16:27 | XMS_ITS | Encounter Summary ---
Author Organization [employer] Address [address] [facility] 7t [place] [address] Care Team Providers Care Dynamite Packing Machine Feeder Name Role Phone Jimmy Boo MD Primary Care Provider [phone] Reason for Visit * Reason Comments Med Refill Encounter Details Date Type Department Care Team ([facility] Contact Info) Description 03/16/2022 Refill [facility] MED[facility]INE [address] [place] [address] Jimmy Boo MD [address] [place], [place] [phone] Insomnia, unspecified Social History Tobacco Use Types [...] Encounters Date Type Department Care Team ([facility] Contact Info) Description 04/01/2025 2:15 PM EST Office Visit [facility] ADULT DENTAL [address] [place] [address] Raza Boo documented as of this encounter Visit Diagnoses Diagnosis Insomnia, unspecified documented in this encounter Care Teams Dynamite Packing Machine Feeder Relationship Specialty Start Date End Date Jimmy Boo MD [address] [place] [address] PCP - General Internal Medicine 05/03/13 documented as of this encounter
--- OUTSIDE RECORDS SUMMARY | 2025-02-07 16:27 | XMS_ITS | Encounter Summary ---
Author Organization [employer] Address [address] [facility] [address] 7[address] [place] [address] Care Team Providers Care Manager Social Work Name Role Phone Jimmy Boo MD Primary Care Provider [phone] Reason for Visit * Reason Comments Med Refill Encounter Details Date Type Department Care Team ([facility] st Contact Info) Description 11/03/2023 Refill [facility] ADULT DENTAL [address] [place] [address] Luis Guzman DDS [address] [place] [address] Social History Tobacco Use Types Packs/Day Years [...] Upcoming Encounters Date Type Department Care Team ([facility] st Contact Info) Description 04/01/2025 2:15 PM EST Office Visit [facility] ADULT DENTAL [address] [place] [address] Raza Boo documented as of this encounter Visit Diagnoses Not on filedocumented in this encounter Care Teams Manager Social Work Relationship Specialty Start Date End Date Jimmy Boo MD [address] [place] [address] PCP - General Internal Medicine 05/03/13 documented as of this encounter
--- OUTSIDE RECORDS SUMMARY | 2025-02-07 16:27 | XMS_ITS | Encounter Summary ---
Author Organization [employer] Address [address] [facility] 7t [place] [address] Care Team Providers Care Painter Assistant Name Role Phone Jimmy Boo MD Primary Care Provider [phone] Reason for Visit * Reason Comments Med Refill Encounter Details Date Type Department Care Team ([facility] st Contact Info) Description 12/29/2023 Refill [facility] MEDICINE [address] [place] [address] Jimmy Boo MD [address] [place] [address] Primary insomnia Social History Tobacco Use Types [...] t he electric, gas, oil or water [employer] threatened to shut off services in your [...] Visit [facility] ADULT DENTAL [address] [place] [address] Raza oBo documented as of this encounter Visit Diagnoses Diagnosis Primary insomnia Persistent disorder of initiating or maintaining sleep documented in this encounter Care Teams Painter Assistant Relationship Specialty Start Date End Date Jimmy Boo MD [address] [place] [address] PCP - General Internal Medicine 05/03/13 documented as of this encounter
--- OUTSIDE RECORDS SUMMARY | 2025-02-07 16:27 | XMS_ITS | Encounter Summary ---
Author Organization [employer] Address [address] [facility] 7t [place] [address] Care Team Providers Care Wetlands Conservation Laborer Name Role Phone Jimmy Boo MD Primary Care Provider [phone] Reason for Visit * Reason Onset Date Comments Nurse Triage 10/24/2023 Encounter Details Date Type Department Care Team ([facility] st Contact Info) Description 10/24/[address] [facility] CHC MED & PEDS [address] [place], [place] [phone] Jimmy Boo MD 505 [place] [address] Nurse Triage Social History Tobacco Use Types [...] past 12 months, has t he electric, [employer], oil or water [employer] threatened to shut off services in your [...] PCP. Please see notes, Please contact at [phone] * Telephone Encounter - Diane Garcia RN [...] a video call tomorrow when PCP opens [facility] schedule 10/25/23. Pt. Would prefer for RX [...] caller accepted this outcome Contact pt at [phone] documented in this encounter Plan of Treatment Upcoming Encounters Date Type Department Care Team (Late st Contact Info) Description 04/01/2025 2:15 PM EST Office Visit [facility] ADULT DENTAL 505 [place] [address] Raza Boo documented as of this encounter Visit Diagnoses Diagnosis Primary insomnia Persistent disorder of initiating or maintaining sleep documented in this encounter Care Teams Wetlands Conservation Laborer Relationship Specialty Start Date End Date Jimmy Boo MD [address] [place] [address] PCP - General Internal Medicine 05/03/13 documented as of this encounter
--- OUTSIDE RECORDS SUMMARY | 2025-02-07 16:27 | XMS_ITS | Encounter Summary ---
Author Organization [employer] Address 75 [facility] 7t [place] [address] Care Team Providers Care Aircraft Shipping Checker Name Role Phone Jimmy Boo MD Primary Care Provider [phone] Encounter Details Date Type Department Care Team ([facility] Contact Info) Description 11/28/2023 Orders Only [facility] CHC MED & PEDS 505 [place], [place] [phone] Jimmy Boo MD 505 [place] [address] Social History Tobacco Use Types Packs/Day Years [...] [facility] ADULT DENTAL 505 [place] [address] Raza Boo documented as of this encounter Visit Diagnoses Not on filedocumented in this encounter Care Teams Aircraft Shipping Checker Relationship Specialty Start Date End Date Jimmy Boo MD [address] [place] [address] PCP - General Internal Medicine 05/03/13 documented as of this encounter
--- OUTSIDE RECORDS SUMMARY | 2025-02-07 16:27 | XMS_ITS | Encounter Summary ---
Author Organization [employer] Address [address] [facility] [address] 7t [place] [address] Care Team Providers Care Engine Lathe Set Up Operator Name Role Phone Jimmy Boo MD Primary Care Provider [phone] Reason for Visit * Reason Comments Med Refill Encounter Details Date Type Department Care Team ([facility] Contact Info) Description 12/02/2023 Refill [facility] CHC ADULT DENTAL [address] [place] [address] Luis Guzman DDS [address] [place] [address] Social History Tobacco Use Types Packs/Day Years [...] [facility] ADULT DENTAL 505 [place] [address] Raza Boo documented as of this encounter Visit Diagnoses Not on filedocumented in this encounter Care Teams Engine Lathe Set Up Operator Relationship Specialty Start Date End Date Jimmy Boo MD 505 [place] [address] PCP - General Internal Medicine 05/03/13 documented as of this encounter
--- OUTSIDE RECORDS SUMMARY | 2025-02-07 16:27 | XMS_ITS | Encounter Summary ---
Author Organization [employer] Address [address] [place] [address] 7 [place] [address] Care Team Providers Care Stove Mounter Name Role Phone Jimmy Boo MD Primary Care Provider [phone] Reason for Referral * Imaging (Routine) - Authorized Specialty Diagnoses / Procedures Referred By Lonny harris Referred To Contact Radiology Diagnoses Subcutaneous nodule Chronic pain of right thumb Procedures US SOFT TISSUE Jimmy Boo MD [address] [place] [address] Phone: tel: fax: [address] Phone: tel: fax: Referral ID Status Reason Start Date Expiration Date V isits Requested Visits Authorized [id number] Authorized 01/01/2025 01/01/2026 1 1 * Consultation (Urgent) - Closed Specialty Diagnoses / Procedures Referred By Lonny harris Referred To Contact Obstetrics and Gynecology Diagnoses Subcutaneous nodule Jimmy Boo MD [address] [place] [address] Phone: tel: fax: Zack Gray MD [address] [place] [address] [place] [address] Phone: tel: fax: Referral ID Status Reason Start Date Expiration Date V isits Requested Visits Authorized [id number] Closed Specialty Services Required 12/31/2024 12/31/2025 1 1 Encounter Details Date Type Department Care Team ([facility] st Contact Info) Description 12/31/2024 Orders Only [facility] CHC MED & PEDS [address] [place] [address] Jimmy Boo MD [address] [place] [address] Subcutaneous nodule (Primary Dx); Chronic pain of [...] [facility] ADULT DENTAL 505 [place] [address] Raza Boo Scheduled Orders Name Type Priority [...] documented as of this encounter Care Teams Stove Mounter Relationship Specialty Start Date End Date Jimmy Boo MD [address] [place] [address] PCP - General Internal Medicine 05/03/13 documented as of this encounter
--- OUTSIDE RECORDS SUMMARY | 2025-02-07 16:27 | XMS_ITS | Encounter Summary ---
Author Organization [employer] Address [address] [facility] 7 [place] [address] Care Team Providers Care Newspaper Delivery Driver Name Role Phone Jimmy Boo MD Primary Care Provider [phone] Reason for Visit * Reason Comments Med Refill Encounter Details Date Type Department Care Team ([facility] Contact Info) Description 04/22/2022 Refill [facility] MEDICINE [address] [place], [place] [phone] Jimmy Boo MD 505 [place], [place] [phone] SOB (shortness of breath) Social History Tobacco [...] Upcoming Encounters Date Type Department Care Team ([facility] Contact Info) Description 04/01/2025 2:15 PM EST Office Visit [facility] CHC ADULT DENTAL 505 [place] [address] Raza Boo documented as of this encounter Visit Diagnoses Diagnosis SOB (shortness of breath) Shortness of breath documented in this encounter Care Teams Newspaper Delivery Driver Relationship Specialty Start Date End Date Jimmy Boo MD [address] [place] [address] PCP - General Internal Medicine 05/03/13 documented as of this encounter
--- OUTSIDE RECORDS SUMMARY | 2025-02-07 16:27 | XMS_ITS | Encounter Summary ---
Author Organization [employer] Address [address] [facility] 7t [place] [address] Care Team Providers Care Business Intelligence Architect Name Role Phone Jimmy Boo MD Primary Care Provider [phone] Reason for Visit * Reason Onset Date Comments scripted toothpaste 12/24/2024 Encounter Details Date Type Department Care Team ([facility] Contact Info) Description 12/24/2024 Telephone [facility] ADULT DENTAL [address] [place] [address] Luis Guzman DDS [address] [place] [address] scripted toothpaste Social History Tobacco Use Types [...] [facility] ADULT D[facility]AL 505 [place] [address] Raza Boo documented as of this encounter Visit Diagnoses Not on filedocumented in this encounter Additional Health Concerns Assessment Noted Time PHQ-9 Depression Total Score: 8 06/05/19 25 2:12 PM EST documented as of this encounter Care Teams Business Intelligence Architect Relationship Specialty Start Date End Date Jimmy Boo MD 505 [place] [address] PCP - General Internal Medicine 05/03/13 documented as of this encounter
--- OUTSIDE RECORDS SUMMARY | 2025-02-07 16:27 | XMS_ITS | Encounter Summary ---
Author Organization [employer] Address 75 [facility] 7 [place] [address] Care Team Providers Care Astronautical Engineer Name Role Phone Jimmy Boo MD Primary Care Provider [phone] Encounter Details Date Type Department Care Team (Latest Contact Info) Description 08/16/2018 Abstract [facility] CONVERSIONS Dental, Provider, DDS Social History [...] Visit [facility] ADULT DENTAL 505 [place] [address] Raza Boo documented as of this encounter Visit Diagnoses Not on filedocumented in this encounter Care Teams Astronautical Engineer Relationship Specialty Start Date End Date Jimmy Boo MD 505 [place] [address] PCP - General Internal Medicine 05/03/13 documented as of this encounter
--- OUTSIDE RECORDS SUMMARY | 2025-02-07 16:27 | XMS_ITS | Encounter Summary ---
Author Organization [employer] Address 75 [facility] 7t [place] [address] Care Team Providers Care Dermatology Specialist Name Role Phone Jimmy Boo MD Primary Care Provider [phone] Encounter Details Date Type Department Care Team ([facility] st Contact Info) Description 10/24/2023 Orders Only [facility] CHC MED & PEDS 505 [place], [place] [phone] Jimmy Boo MD 505 [place] [address] Herpes zoster without complication (Primary Dx) Social [...] t he electric, gas, oil or water [employer] threatened to shut off services in your [...] Description 04/01/2025 2:15 PM EST Office Visit [facility] ADULT DENTAL [address] [place] [address] Raza Boo documented as of this encounter Procedures Procedure Name Priority Date/Time Associated Diagnosis Comments XR FINGERS 2+ VIEWS RIGHT Routine 11/23/2023 11:55 AM EDT documented in this encounter Results * XR Fingers 2+ Views Right (11/23/2023 11:55 AM EDT) Anatomical Region Laterality Modality Upper Extremities, Fingers Right Radio graphic Imaging 11/23/2023 11:5 5 AM EDT Narrative 11/27/2023 2:15 PM EDT [address] [address] XRay Report Signed Patient: Lakisha Hearn MR#: [id number] : 1965 Acct:[id number] Age/Sex: 58 / F ADM Date: 11/23/23 Loc: [facility] Attending Dr: Jimmy Boo MD Ordering Physician: Jimmy Boo MD Date of Service: 11/23/23 Procedure(s): XR finger RT min 2V Accession Number(s): [id number] cc: Jimmy Boo MD EXAMINATION: XR FINGER, [...] unremarkable. XR/XR finger RT min 2V IMPRESSION: Qwjq-xa-tzlxdysl osteoarthritis of the first carpometacarpal joint with degenerative changes slightly progressed compared with February 2019 Electronically signed by: Kuldip Dill MD 11/27/2023 02:13 PM EDT RP Dictated By: Kuldip Dill MD Signed By: <Electronically signed by Kuldip Dill MD in OV> 11/27/23 1413 DD/ 1155 TD/TT: 11/23/23 1205 Mobile Sales Assistant: STEVE Procedure Note Donotuseinterpreter, Image - 11/27/[address] [address] XRay Report Signed Patient: Lakisha Hearn AMR#: [id number] : 1965Acct:[id number] Age/Sex: 58 / FADM Date: 11/23/23 Loc: [facility] Attending Dr: Jimmy Boo MD Ordering Physician: Jimmy oBo MD Date of Service: 11/23/23 Procedure(s): XR finger RT min 2V Accession Number(s): [id number] cc: Jimmy Boo MD EXAMINATION: XR FINGER, [...] unremarkable. XR/XR finger RT min 2V IMPRESSION: Nzrk-qg-ijxyqidh osteoarthritis of the first carpometacarpal joint with degenerative changes slightly progressed compared with February 2019 Electronically signed by: Kuldip Dill MD 11/27/2023 02:13 PM EDT RP Dictated By: Kuldip Dill MD Signed By: <Electronically signed by Kuldip Dill MD inOV> 11/27/23 1413 DD/ 1155 TD/TT: 11/23/23 1205 Mobile Sales Assistant: STEVE Jimmy Boo MD IMG XR PROCEDURES Final Res ult documented in this encounter Visit Diagnoses Diagnosis Herpes zoster without complication- Primary documented in this encounter Care Teams Dermatology Specialist Relationship Specialty Start Date End Date Jimmy Boo MD [address] [place] [address] PCP - General Internal Medicine 05/03/13 documented as of this encounter
--- OUTSIDE RECORDS SUMMARY | 2025-02-07 16:27 | XMS_ITS | Encounter Summary ---
Author Organization [employer] [facility] Address 75 [facility] 7 [place] [address] Care Team Providers Care Consulting Utility Forester Name Role Phone Jimmy Boo MD Primary Care Provider +[phone]- [phone] Encounter Details Date Type Department Care Team (Latest Contact Info) Description 03/14/2020 Abstract [facility] CONVERSIONS Dental, Provider, DDS Social History Tobacco [...] [facility] ADULT DENTAL 505 [place] [address] Raza Boo documented as of this encounter Visit Diagnoses Not on filedocumented in this encounter Care Teams Consulting Utility Forester Relationship Specialty Start Date End Date Jimmy Boo MD 505 [place] [address] PCP - General Internal Medicine 05/03/13 documented as of this encounter
--- OUTSIDE RECORDS SUMMARY | 2025-02-07 16:28 | XMS_ITS | Encounter Summary ---
Author Organization [employer] Address [address] [facility] [address] 7t [place] [address] Care Team Providers Care Machine Engraver Name Role Phone Jimmy Boo MD Primary Care Provider [phone] Reason for Visit * Reason Comments Med Refill Encounter Details Date Type Department Care Team ([facility] st Contact Info) Description 07/27/2024 Refill [facility] CHC ADULT DENTAL [address] [place] [address] Luis Guzman DDS [address] [place] [address] Social History Tobacco Use Types Packs/Day Years [...] 2:15 PM EST Office Visit [facility] ADULT DENTAL 505 [place] [address] Raza Boo documented as of this encounter Visit Diagnoses Not on filedocumented in this encounter Additional Health Concerns Assessment Noted Time PHQ-9 Depression Total Score: 8 06/05/19 25 2:12 PM EST documented as of this encounter Care Teams Machine Engraver Relationship Specialty Start Date End Date Jimmy Boo MD 505 [place] [address] PCP - General Internal Medicine 05/03/13 documented as of this encounter
--- OUTSIDE RECORDS SUMMARY | 2025-02-07 16:28 | XMS_ITS | Encounter Summary ---
Author Organization [employer] Address [address] [facility] [address] 7t [place] [address] Care Team Providers Care Medical Center Director Name Role Phone Jimmy Boo MD Primary Care Provider [phone] Reason for Visit * Reason Comments Med Refill Encounter Details Date Type Department Care Team ([facility] Contact Info) Description 10/03/2023 Refill [facility] CHC ADULT DENTAL [address] [place] [address] Mary Jane Massey DMD Social History Tobacco [...] [facility] ADULT [facility] 505 [place] [address] Raza Boo documented as of this encounter Visit Diagnoses Not on filedocumented in this encounter Care Teams Medical Center Director Relationship Specialty Start Date End Date Jimmy Boo MD 505 [place] [address] PCP - General Internal Medicine 05/03/13 documented as of this encounter
--- OUTSIDE RECORDS SUMMARY | 2025-02-07 16:28 | XMS_ITS | Encounter Summary ---
Author Organization [employer] Address [address] [place] [address] 7 [place] [address] Care Team Providers Care Bonbon Dipper Name Role Phone Jimmy Boo MD Primary Care Provider [phone]- [phone] Reason for Visit * Reason Comments Med Refill Encounter Details Date Type Department Care Team ([facility] Contact Info) Description 06/19/2022 Refill [facility] MED & PEDS 505 [place] [address] Jimmy Boo MD [address] [place] [address] Primary insomnia Social History Tobacco Use Types [...] Upcoming Encounters Date Type Department Care Team ([facility] Contact Info) Description 04/01/2025 2:15 PM EST Office Visit [facility] ADULT DENTAL 505 [place] [address] Raza Boo documented as of this encounter Visit Diagnoses Diagnosis Primary insomnia Persistent disorder of initiating or maintaining sleep documented in this encounter Care Teams Bonbon Dipper Relationship Specialty Start Date End Date Jimmy Boo MD [address] [place] [address] PCP - General Internal Medicine 05/03/13 documented as of this encounter
--- OUTSIDE RECORDS SUMMARY | 2025-02-07 16:28 | XMS_ITS | Encounter Summary ---
Author Organization [employer] Address 75 [facility] 7 [place] [address] Care Team Providers Care Groundhand Name Role Phone Jimmy Boo MD Primary Care Provider [phone] Encounter Details Date Type Department Care Team ([facility] Contact Info) Description 07/07/2023 Orders Only [facility]ED[facility] [address] [place], [place] [phone] Jimmy Boo MD 505 [place] [address] Diverticulosis of colon (Primary Dx) Social History [...] [facility] ADULT DENT[facility] [address] [place] [address] Raza Boo Scheduled Orders Name Type Priority Associated Diagnoses Orde r Schedule Fecal Globin by Immunochemistry Lab Routine Diverticulosis of colon Expected: 07/07/2023 (Approximate), Expires: 07/06/2024 Urinalysis Complete Lab Routine Diverticulosis of colon Expected: 07/07/2023 (Approximate), Expires: 07/06/2024 documented as of this encounter Visit Diagnoses Diagnosis Diverticulosis of colon- Primary Diverticulosis of colon (without mention of hemorrhage) documented in this encounter Care Teams Groundhand Relationship Specialty Start Date End Date Jimmy Boo MD [address] [place] [address] PCP - General Internal Medicine 05/03/13 documented as of this encounter
--- OUTSIDE RECORDS SUMMARY | 2025-02-07 16:28 | XMS_ITS | Encounter Summary ---
Author Organization [employer] Address 75 [facility] 7 [place] [address] Care Team Providers Care Dye Automation Operator Name Role Phone Jimmy Boo MD Primary Care Provider [phone] Reason for Visit * Reason Onset Date Comments Medication Question 06/21/2022 Encounter Details Date Type Department Care Team ([facility] Contact Info) Description 06/21/2022 Telephone [facility] CHC MED & PEDS [address] [place], [place] [phone] Jimmy Boo MD 505 [place], [place] [phone] Medication Question Social History Tobacco Use Types [...] to [facility] pharmacy on [facility] * Telephone Encounter - Sangeetha Glenys - 06/21/2022 2:27 PM EDT Tc from pt requesting for medication ibuprofen . States does not want the 800mg . Would like to know if she can get 600 mg instead . documented in this encounter Plan of Treatment Upcoming Encounters Date Type Department Care Team ([facility] st Contact Info) Description 04/01/2025 2:15 PM EST Office Visit [facility] ADULT DENTAL 505 [place] [address] Raza Boo documented as of this encounter Visit Diagnoses Diagnosis Primary insomnia Persistent disorder of initiating or maintaining sleep SOB (shortness of breath) Shortness of breath documented in this encounter Care Teams Dye Automation Operator Relationship Specialty Start Date End Date Jimmy Boo MD 505 [place] [address] PCP - General Internal Medicine 05/03/13 documented as of this encounter
--- OUTSIDE RECORDS SUMMARY | 2025-02-07 16:28 | XMS_ITS | Encounter Summary ---
Author Organization [employer] Address [address] [place] [address] 7 [place] [address] Care Team Providers Care Sports Cartoonist Name Role Phone Jimmy Boo MD Primary Care Provider [phone] Reason for Visit * Reason Comments Med Refill Encounter Details Date Type Department Care Team ([facility] Contact Info) Description 06/24/2022 Refill [facility] MED & PEDS [address] [place] [address] Jimmy Boo MD [address] [place] [address] Primary insomnia Social History Tobacco Use Types [...] Upcoming Encounters Date Type Department Care Team ([facility] Contact Info) Description 04/01/2025 2:15 PM EST Office Visit [facility] ADULT DENTAL [address] [place] [address] Raza Boo documented as of this encounter Visit Diagnoses Diagnosis Primary insomnia Persistent disorder of initiating or maintaining sleep documented in this encounter Care Teams Sports Cartoonist Relationship Specialty Start Date End Date Jimmy Boo MD [address] [place] [address] PCP - General Internal Medicine 05/03/13 documented as of this encounter
--- OUTSIDE RECORDS SUMMARY | 2025-02-07 16:28 | XMS_ITS | Encounter Summary ---
Author Organization [employer] Address [address] [facility] 7t [place] [address] Care Team Providers Care Geodesy Teacher Name Role Phone Jimmy Boo MD Primary Care Provider [phone] Encounter Details Date Type Department Care Team ([facility] Contact Info) Description 02/05/2025 Orders Only GENERIC EXTERNAL DATA DEPARTMENT Provider, Generic External Data Social History Tobacco Use Types Packs/Day Years [...] [facility] ADULT DENTAL [address] [place] [address] Raza Boo documented as of this encounter Procedures Procedure Name Priority Date/Time Associated Diagnosis Comments CHLAMYDIA/TRICHOMON /NEISSERIA GONORRHOEAE, PCR, URINE Routine 02/05/2025 8:45 AM EST documented in this encounter Results * Chlamydia/Trichomonas/Neisseria gonorrhoeae, PCR, Urine (02/05/2025 8:45 AM EST) CT PCR, Urine NOT DETECTED Not Detect. [facility] Comment:A not detected test result does not exclude the possibilityof infection because test results can be affected byimproper specimen collection, concurrent antibiotic therapy,or the number of organisms in the specimen which may bebelow the sensitivity of the test. As with many diagnostictests, results from the Xpert CT/NG assay should beinterpreted in conjunction with other laboratory andclinical data available to the clinician.The Xpert CT/NG assay should not be used for the evaluationof suspected sexual abuse or for other medico-legalindications. Additional testing is recommended in anycircumstance when false positive or false negative resultscould lead to adverse medical, social or psychologicalconsequences. NG PCR, Urine NOT DETECTED Not Detect. [facility] Comment:A not detected test result does not exclude the possibilityof infection because test results can be affected byimproper specimen collection, concurrent antibiotic therapy,or the number of organisms in the specimen which may bebelow the sensitivity of the test. As with many diagnostictests, results from the Xpert CT/NG assay should beinterpreted in conjunction with other laboratory andclinical data available to the clinician.The Xpert CT/NG assay should not be used for the evaluationof suspected sexual abuse or for other medico-legalindications. Additional testing is recommended in anycircumstance when false positive or false negative resultscould lead to adverse medical, social or psychologicalconsequences. 02/05/2025 8:45 AM EST 02/05/2025 4:00 PM EST us Generic External Data Provider LAB URINE ORDERAB LES Final Result [facility] [address] [place] [address] [phone] documented in this encounter Visit Diagnoses Not on filedocumented in this encounter Additional Health Concerns Assessment Noted Time PHQ-9 Depression Total Score: 8 06/05/19 25 2:12 PM EST documented as of this encounter Care Teams Geodesy Teacher Relationship Specialty Start Date End Date Jimmy Boo MD [address] [place] [address] PCP - General Internal Medicine 05/03/13 documented as of this encounter
--- OUTSIDE RECORDS SUMMARY | 2025-02-07 16:28 | XMS_ITS | Encounter Summary ---
Author Organization [employer] Address [address] [facility] 7t [place] [address] Care Team Providers Care College Professor Name Role Phone Jimmy Boo MD Primary Care Provider [phone] Reason for Visit * Reason Onset Date Comments Dr. Guzman refill Sodium Flouride 5000 cream too thpaste 07/12/2024 Encounter Details Date Type Department Care Team ([facility] Contact Info) Description 07/12/2024 Telephone [facility] [address] [place] [address] Luis Guzman DDS [address] [place] [address] Dr. Guzman refill Sodium Flouride 5000 cream [...] Visit [facility] ADULT [facility] [address] [place] [address] Raza Boo documented as of this encounter Visit Diagnoses Not on filedocumented in this encounter Additional Health Concerns Assessment Noted Time PHQ-9 Depression Total Score: 8 06/05/19 25 2:12 PM EST documented as of this encounter Care Teams College Professor Relationship Specialty Start Date End Date Jimmy Boo MD [address] [place] [address] PCP - General Internal Medicine 05/03/13 documented as of this encounter
--- OUTSIDE RECORDS SUMMARY | 2025-02-07 16:28 | XMS_ITS | Data Portability ---
Author Organization [employer] [facility] Address [address] [place] [address] Care Team Providers Care Truck Bench Mechanic Name Role Phone Unavailable OTHER HIM CCA OTHER Assessment Encounter Date Assessment Date Assessment LastModified by Organization Details LastModified Time 04/10/2024 04/10/2024 I provided real -time medical direction via phone for this encounter, and was available for additional phone based assistance as needed. I have reviewed the Assessment and Plan as documented by the Creative/Art Director. We discussed the diagnostic uncertainty of home [...] to call 911- verbalized understanding of instruction [email or web address] Not available 04/10/2024 17:16:10 Plan of Treatment Reminders Order Date Submit Date Provider Last Modified By Organization Details Last Modified Time Details Appointments None recorded. Lab None recorded. Referral None recorded. Procedures None recorded. Surgeries None recorded. Imaging None recorded. Medication Orders prednisone 20 mg tablet 2024 025 [email or web address] Not available 14:39:14 prednisone 20 mg tablet [address] [facility][id number], [address] [facility] [place], [address], 14:39:17 Patient TargetsNo targets recorded. Patient InstructionsNo instructions recorded. Reason for Referral None Reported. Medical Equipment None Reported. Allergies Allergen ID Allergen Name Allergen Category Reaction Reaction Severity Criticality Documentation Date Start Date Code Code System Note Provider Name and Address Organization Details Recorded Time 64449 topiramat e medicatio n Not available Not available Not available 04/10/2024 13490 RxNorm Not Available [facility] - production 10:14:26 87994 Bactrim medicatio n Not available Not available Not available 04/10/2024 36153 9 RxNorm Not Available [facility] - production 10:14:26 27612 Iodinated contrast media (substanc e) medicatio n Not available Not available Not available 04/10/2024 30652 2003 SNOMED Cara Bauer MD [address] [place] [address],[address], [place], [address], [employer] 14:33:28 50100 tamoxifen medicatio n Not available Not available Not available 04/10/2024 43580 RxNorm Cara Bauer MD [address] [place] [address],[address], [place], [address], [employer] 14:33:55 Medications Name Sig Start Date Stop [...] % 149.86 cm 80 /min 18 /min 70613.1 2 g 147/94 mm[Hg] Not Available [facility] [...] ICD10 Code Diagnosis IMO Codes Diagnosis Note 00388 Cara Bauer MD Main - [address] [phone] 04/10/2024 14:14:38 04/10/2024 18:10:27 Atypical facial pain 06512374 G50.1 Possible trigeminal neuralgia/ discussed gabapentin with [...] Gill Member ID Guarantor Name 04/28/2024 1 [facility] - DOS ON OR AFTER 2022 - DUAL ELIGIBLE - RESIDENTIAL OPTIONS AND ONE CARE (MEDICARE REPLACEMENT/AD VANTAGE - HMO) Lakisha Heanr [id number] Lakisha Hearn Notes Date Note Type Note Provider Name and Address Organization Details Recorded Time 04/10/2024 text/html ROS as noted in the HPI HPI: Patient with complaints of right sided face pain for 4-5 days. No fever, slight headache. Pain right gnosticist forehead eye and face.Recovered COVID March 2024 ...................... ...................... ...................... ...................... ...................... ...................... ......... [facility] Nurse Triage Notes (Malia Kent - YVONNE): Chief Complaints: Headache PMH: Multiple Sclerosis, Cigarette Smoker, Gastroesophageal Reflux Disease (GERD) PMH Reviewed at 04/10/2024:14 Allergies Reviewed at 04/10/2024 - 10:14 Comments: HPI reviewed Allergies BEE ...................... ...................... ...................... ...................... ...................... ...................... ......... Creative/Art Director Note From Kuldip Kidd: SC1 dispatched to [...] ...................... ...................... ...................... ...................... ...................... ...................... ......... [facility] Consulted: Cara Bauer ...................... ...................... ...................... ...................... ...................... ...................... ......... Disposition: Fulfilled SEGMD: Patient clearly reported to me she has a headache when she gets up in the am for months/ she describes that she has pain from her right lateral orbit to her right temporal /parietal area-it feels like [id number] with a sharp component, but it does [...] not a diabetic. Cara Bauer MD [address] [facility],[address], [place], [address], MIGUEL - Conferensum, TAMIKO 04/10/2024 17:16:13 OBGyn Episode No OBEpisode recorded.
--- OUTSIDE RECORDS SUMMARY | 2025-02-07 16:28 | XMS_ITS | Encounter Summary ---
Author Organization [employer] Address [address] [place] [address] 7 [place] [address] Care Team Providers Care Kitchen Help Handyman Name Role Phone Jimmy Boo MD Primary Care Provider [phone] Encounter Details Date Type Department Care Team ([facility] Contact Info) Description 06/21/2023 Orders Only [facility] [address] [place], [place] [phone] Jimmy Boo MD [address] [place], [place] [phone] Primary insomnia Social History Tobacco Use Types [...] Upcoming Encounters Date Type Department Care Team ([facility] Contact Info) Description 04/01/2025 2:15 PM EST Office Visit [facility] [address] [place], [place] [phone] Raza Boo documented as of this encounter Visit Diagnoses Diagnosis Primary insomnia Persistent disorder of initiating or maintaining sleep documented in this encounter Care Teams Kitchen Help Handyman Relationship Specialty Start Date End Date Jimmy Boo MD [address] [place] [address] PCP - General Internal Medicine 05/03/13 documented as of this encounter
--- OUTSIDE RECORDS SUMMARY | 2025-02-07 16:28 | XMS_ITS | Clinical Summary ---
Author Organization [facility] Address [address] [place] [address] Phone Care Team Providers Care Marine Chronometer Assembler Name Role Phone Jimmy Boo MD Primary Care Provider [phone] Allergies Active Allergy Reactions Criticality Noted Date [...] Encounters Date Type Department Care Team Description 02/06/2025 11:52 AM EST - 02/06/2025 11:59 PM EST Hospital Encounter [facility] MRI [address] [place] [address] Multiple sclerosis Discharge Disposition: Home or Self Care 02/06/2025 11:51 AM EST - 02/06/2025 11:59 PM EST Hospital Encounter [facility] MRI [address] [place] [address] Multiple sclerosis Discharge Disposition: Home or Self Care 01/23/2025 11:40 AM EDT Office Visit [facility] [address] [facility] [address] [place] [address] Ton Prather MD Multiple sclerosis (Primary Dx); Other fatigue; Gait abnormality from Last 3 Months Surgical History Surgery Date Site/Laterality Comments OTHER SURGICAL HISTORY PROCEDURE: [place] EXC BARTHOL[place] GLAND/CYST; COMMENT: Vulva lipoma resection 06/2018 TUBAL LIGATION PROCEDURE: HISTORICAL TUBAL LIGATION OTHER SURGICAL HISTORY PROCEDURE: [place] CYSTOURETHROSCOPY W/INTERNAL URETHROTOMY; COMMENT: urethral diverticulum OTHER [...] in female; COMMENT: Right IDC, pT1c N1a, 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, 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, s/p partial mastectomy and [...] Description 03/27/2025 11:00 AM EST Office Visit [facility] [address] [facility] [address] [place] [address] Ton Prather MD [address] [place] [address] Health Maintenance Due Date Last Done Comments [...] RESULTING AGENCY - 05/21/2022 11:11 AM EST [id number] THINPREP PAP, IMAGED: ATYPICAL SQUAMOUS CELLS OF [...] Most Recently Relevant to Health Maintenance Insurance [employer] MEDICARE Member Subscriber Plan / Payer (Ef fective 2022-Present) Name:LAKISHA STEVENS Relation to Subscriber:Self Name:Lakisha Stevens Payer ID:[id number] Group ID:[id number] Type:Not on file Address: [place] [address] [address] [place] [address] Care Teams Marine Chronometer Assembler Relationship Specialty Start Date End Date Jimmy Boo MD [address] [place] [address] PCP - General Internal Medicine 11/23/19
--- OUTSIDE RECORDS SUMMARY | 2025-02-07 16:28 | XMS_ITS | Encounter Summary ---
Author Organization [employer] [facility] Address [address] [place] [address] 7 [place] [address] Care Team Providers Care Mess Cook Name Role Phone Jimmy Boo MD Primary Care Provider [phone] Encounter Details Date Type Department Care Team (Late Contact Info) Description 05/16/2023 Abstract [facility] [address] [place] [address] Mary Jane Massey DMD Social History Tobacco [...] [facility] [address] [place] [address] Raza Boo documented as of this encounter Visit Diagnoses Not on filedocumented in this encounter Care Teams Mess Cook Relationship Specialty Start Date End Date Jimmy Boo MD [address] [place] [address] PCP - General Internal Medicine 05/03/13 documented as of this encounter
--- OUTSIDE RECORDS SUMMARY | 2025-02-07 16:28 | XMS_ITS | Encounter Summary ---
Author Organization [employer] Address [address] [facility] 7t [place] [address] Care Team Providers Care Distribution Sales Manager Name Role Phone Jimmy Boo MD Primary Care Provider [phone] Reason for Visit * Reason Onset Date Comments Med Refill 07/13/2023 Encounter Details Date Type Department Care Team (Late Contact Info) Description 07/13/2023 Refill [facility] ADULT D[facility] [address] [place] [address] Luis Guzman DDS [address] [place] [address] Social History Tobacco Use Types Packs/Day Years [...] Encounters Date Type Department Care Team ([facility] Contact Info) Description 04/01/2025 2:15 PM EST Office Visit [facility] ADULT D[facility] [address] [place] [address] Raza Boo documented as of this encounter Visit Diagnoses Not on filedocumented in this encounter Care Teams Distribution Sales Manager Relationship Specialty Start Date End Date Jimmy Boo MD [address] [place] [address] PCP - General Internal Medicine 05/03/13 documented as of this encounter
--- OUTSIDE RECORDS SUMMARY | 2025-02-07 16:28 | XMS_ITS | Encounter Summary ---
Author Organization [employer] Address [address] [facility] 7t [place] [address] Care Team Providers Care Director Correctional Agency Name Role Phone Jimmy Boo MD Primary Care Provider [phone] Encounter Details Date Type Department Care Team ([facility] Contact Info) Description 06/25/2022 Orders Only [facility] [address] [place], [place] [phone] Gray Barnes MD [address] [place], [place] [phone] Primary insomnia; SOB (shortness of breath) Social [...] Encounters Date Type Department Care Team ([facility] Contact Info) Description 04/01/2025 2:15 PM EST Office Visit [facility] ADULT DENTAL [address] [place] [address] Raza Boo documented as of this encounter Visit Diagnoses Diagnosis Primary insomnia Persistent disorder of initiating or maintaining sleep SOB (shortness of breath) Shortness of breath documented in this encounter Care Teams Director Correctional Agency Relationship Specialty Start Date End Date Jimmy Boo MD [address] [place] [address] PCP - General Internal Medicine 05/03/13 documented as of this encounter
--- OUTSIDE RECORDS SUMMARY | 2025-02-07 16:28 | XMS_ITS | Encounter Summary ---
Author Organization [employer] Address [address] [place] [address] 7 [place] [address] Care Team Providers Care Apartment Rental Clerk Name Role Phone Jimmy Boo MD Primary Care Provider [phone] Encounter Details Date Type Department Care Team ([facility] Contact Info) Description 04/13/2023 Abstract [facility] [address] [place] [address] Zahira Harris DDS [address] [place], [place] [phone] Social History Tobacco Use Types Packs/Day Years [...] 2:15 PM EST Office Visit [facility] [address] [place] [address] Raza Boo documented as of this encounter Visit Diagnoses Not on filedocumented in this encounter Care Teams Apartment Rental Clerk Relationship Specialty Start Date End Date Jimmy Boo MD [address] [place], [place] [phone] PCP - General Internal Medicine 05/03/13 documented as of this encounter
--- OUTSIDE RECORDS SUMMARY | 2025-02-07 16:28 | XMS_ITS | Encounter Summary ---
Author Organization [employer] Address [address] [facility] 7 [place] [address] Care Team Providers Care Real Estate Site Analyst Name Role Phone Jimmy Boo MD Primary Care Provider [phone] Encounter Details Date Type Department Care Team ([facility] Contact Info) Description 08/17/2022 Abstract [facility] [address] [place], [place] [phone] Jimmy Boo MD [address] [place] [address] Social History Tobacco Use Types Packs/Day Years [...] Visit [facility] ADULT DENTAL [address] [place] [address] Raza Boo documented as of this encounter [...] EDT Recommended 5 year follow up ( [facility]) us Historical Provider HEALTH MAINTENANCE Final Result documented in this encounter Visit Diagnoses Not on filedocumented in this encounter Care Teams Real Estate Site Analyst Relationship Specialty Start Date End Date Jimmy Boo MD [address] [place] [address] PCP - General Internal Medicine 05/03/13 documented as of this encounter
--- OUTSIDE RECORDS SUMMARY | 2025-02-07 16:28 | XMS_ITS | Patient Health Record ---
Author Organization [facility] Address [address] [place] [address] Care Team Providers Care Top Taper Machine Name Role Phone Jimmy Boo M.D. Primary Care Provider Un available Keyshawn Lopez Unavailable [phone] Allergies Allergen (clinical drug ingredient) Drug/Non Drug [...] Problem Screening for malignant neoplasm of colon (746304302) Encounter for screening for malignant neoplasm of colon (Z12.11) Active confirmed Problem Screening for malignant neoplasm of rectum (711190076) Encounter for screening for malignant neoplasm of rectum (Z12.12) Active confirmed Problem Family History of Cancer of Colon (Situation) (404908953) Family history of colon cancer (Z80.0) Active confirmed Problem Constipation (32037269) Constipation, unspecified constipation type (K59.00) Active confirmed Problem Diverticulosis of colon (942005481) Diverticulosis of colon (K57.30) Active confirmed Plan Of Treatment Future Test Test Name Order Date COLONOSCOPY 12/19/2015 COLONOSCOPY 03/17/2022 Insurance Providers Payer Name Payer Address Payer Phone Subscriber Number Group Number Insured Name Patient Relationship to Insured Coverage Start Date Coverage End Date [facility] [address] [place] [address] [id number] PATRICIA DOOLEY Self - patient is the insured Medical (General) History Medical History History ICD Code Epilepsy--off seizure meds Multiple sclerosis Vertigo Denies [place],DM,CVA,Lung disease,renal dise ase Hx of breast cancer 2011--ri ght--lumpectomy, XRT , chemo--sees Dr. Samuel at [facility] x 3 Neg. colonoscopy in 2005, 06/2011, and 2016 Surgical History Surgery Date(Month/Year) Urethral diverticulum Right arm surgery BTL Exploratory laparoscopy Ear surgery for tubes Shoulder surgery--right shoulder 09/2015 Right breast cancer --lumpectomy Bone removed from left thumb Carpal tunnel on the left Cystoscopy 02/2022
--- OUTSIDE RECORDS SUMMARY | 2025-02-07 16:28 | XMS_ITS | Encounter Summary ---
Author Organization [employer] Address [address] [facility] [address] [place] [address] Care Team Providers Care Loss Prevention Specialist Name Role Phone Jimmy Boo MD Primary Care Provider [phone] Reason for Visit * Reason Comments Med Refill Encounter Details Date Type Department Care Team ([facility] Contact Info) Description 08/27/2023 Refill [facility] ADULT [facility] [address] [place] [address] Mary Jane Massey DMD Social History Tobacco [...] [facility] ADULT D[facility] [address] [place] [address] Raza Boo documented as of this encounter Visit Diagnoses Not on filedocumented in this encounter Care Teams Loss Prevention Specialist Relationship Specialty Start Date End Date Jimmy Boo MD [address] [place] [address] PCP - General Internal Medicine 05/03/13 documented as of this encounter
--- OUTSIDE RECORDS SUMMARY | 2025-02-07 16:28 | XMS_ITS | Encounter Summary ---
Author Organization [employer] Address [address] [facility] [address] [place] [address] Care Team Providers Care Transportation Analyst Name Role Phone Jimmy Boo MD Primary Care Provider [phone] Encounter Details Date Type Department Care Team ([facility] Contact Info) Description 08/30/2023 Orders Only [facility] MED & PEDS [address] [place], [place] [phone] ProviderYnes MD Social History Tobacco Use Types [...] [facility] [address] [place] [address] Raza Boo documented as of this encounter [...] on filedocumented in this encounter Care Teams Transportation Analyst Relationship Specialty Start Date End Date Jimmy Boo MD [address] [place] [address] PCP - General Internal Medicine 05/03/13 documented as of this encounter
--- OUTSIDE RECORDS SUMMARY | 2025-02-07 16:29 | XMS_ITS | Clinical Summary ---
Author Organization [employer] Address [address] [place] [address] 7[address] [place] [address] Care Team Providers Care Telephone Clerk Telegraph Office Name Role Phone Jimmy Boo MD Primary Care Provider [phone] Allergies Active Allergy Reactions Criticality Noted Date [...] the morning. 06/24/19 21 Active sodium chloride (Aplin) 0.65 % nasal spray Administer 2 sprays [...] 24 Active Sodium Fluoride 1.1 % cream [place] teeth for 2 minutes, morning and night. [...] Encounters Date Type Department Care Team Description 02/05/2025 Orders Only GENERIC EXTERNAL DATA DEPARTMENT Provider, Generic External Data 01/25/2025 Refill [facility] [address] [place] [address] Jimmy Boo MD Primary insomnia 01/11/2025 Orders Only GENERIC EXTERNAL DATA DEPARTMENT Provider, Generic External Data 01/10/2025 Telephone [facility] [address] [place] [address] Jimmy Boo MD Nurse Triage 01/01/2025 Results Follow-Up [facility] [address] [place] [address] Subha Kellogg, YVONNE Pelvis Limited 12/31/2024 Orders Only [facility] [address] [place] [address] Jimmy Boo MD Subcutaneous nodule (Primary Dx); Chronic pain of right thumb 12/28/2024 Orders Only [facility] [address] [place] [address] Jimmy Boo MD 12/24/2024 Telephone [facility] [address] [place] [phone] Luis Guzman DDLencho scripted toothpaste 12/24/[address] [address] Jimmy Boo MD Primary insomnia 12/19/2024 9:00 AM EDT Office Visit [facility] [address] [place] [phone] Jimmy Boo MD Right hand pain (Primary Dx); Subcutaneous nodule 12/19/2024 Travel 12/12/2024 Patient Outreach [address] [address] Jimmy Boo MD Pre-visit Planning ([facility] screening completed on 05/18/24) 11/26/2024 Refill [facility] [address] [place] [address] Jimmy Boo MD Primary insomnia from Last [...] [facility] [address] [place] [address] Raza Boo Health Maintenance Due Date Last [...] Procedure Name Priority Date/Time Associated Diagnosis Comments CHLAMYDIA/TRICHOMONAS /NEISSERIA GONORRHOEAE, PCR, URINE Routine 02/05/2025 8:[address] ABDOMEN PELVIS WO CONTRAST Routine 01/11/2025 [...] Recently Relevant to Health Maintenance Results * Chlamydia/Trichomonas/Neisseria gonorrhoeae, PCR, Urine (02/05/2025 8:45 AM EST) CT PCR, Urine NOT DETECTED Not Detect. [facility] Comment:A not detected test result [...] NG PCR, Urine NOT DETECTED Not Detect. [facility] Comment:A not detected test result [...] 8:45 AM EST 02/05/2025 4:00 PM EST Generic External Data Provider LAB URINE ORDERAB LES Final Result Performing Organization Address City/State/[facility] Co de Phone Number [facility] [address] [place] [phone] * CT Abdomen Pelvis w/o Contrast (01/11/2025 4:00 PM EDT) Anatomical Region Laterality Modality Body, Pelvis, Abdomen Computed T omography 01/11/2025 4:00 PM EDT Narrative 01/11/2025 5:10 PM EDT [address] [address] [address] Scan Report Signed Patient: Lakisha Hearn MR#: [id number] : 1965 Acct:[id number] Age/Sex: 59 / F ADM Date: 01/11/25 Loc: HO.ED Attending Dr: Ordering Physician: Ghada Chen Date of Service: 01/11/25 Procedure(s): CT abdomen pelvis wo IV con Accession Number(s): [id number] cc: Jimmy Boo MD; Ghada Chen Report Number: [id number]: Total DLP = 330.00 mGy-cm Reason for [...] 01/11/25 1707 DD/ 1600 TD/TT: 01/11/25 1607 Fifth Hand: DREW Procedure Note Donotuseinterpreter, Image - 01/11/[address] [place] [address] [address] Scan Report Signed Patient: Lakisha Hearn AMR#: [id number] : 1965Acct:[id number] Age/Sex: 59 / FADM Date: 01/11/25 Loc: .ED Attending Dr: Ordering Physician: Ghada Chen Date of Service: 01/11/25 Procedure(s): CT abdomen pelvis wo IV con Accession Number(s): [id number] cc: Jimmy Boo MD; Ghada Chen Report Number: [id number]: Total DLP = 330.00 mGy-cm Reason for [...] 01/11/25 1707 DD/ 1600 TD/TT: 01/11/25 1607 Fifth Hand: DREW [facility] External Provider IMG CT PROCEDURES Final Result * Urinalysis w/reflex microscopic (01/11/2025 1:55 PM EDT) Pathologist [facility] Color Urine Yellow [facility] Appearance Urine Clear [facility] PH 5.5 5.0 - 9.0 [facility] Glucose Urine UA Negative Negative mg/dL [facility] Urine Blood Negative Negative [facility] Specific [place] - Urine 1.020 1.005 - 1.025 [facility] Urine Protein Negative Neg-Trace mg/dL [facility] Urine Ketones Trace Negative mg/dL [facility] Nitrite Urine Negative Negative [facility] Leukocyte Esterase Urine Negative Negative [facility] 01/11/2025 1:55 PM EDT 01/11/2025 2:00 PM EDT Narrative [facility] - 01/11/2025 2:07 PM EDT [id number], Clean Catch us Generic External Data Provider LAB URINE ORDERAB LES Final Result [facility] [address] [place] [phone] * (ABNORMAL) CBC auto differential (01/11/2025 1:42 PM EDT) [facility] White Blood Count 5.6 4.8 - 10.8 X10*3/uL [facility] Red Blood Count 4.71 4.20 - 5.50 X10*6/uL [facility] Hemoglobin 14.7 12.0 - 16.0 g/dl [facility] Hematocrit 43.6 37.0 - 47.0 % [facility] Mean Corpuscular Volume 92.6 80.0 - 98.0 fL [facility] Mean Corpuscular Hemoglobin 31.2 27.0 - 33.0 pg [facility] Mean Corpuscular HGB Conc 33.7 31.0 - 35.0 g/dl [facility] Red Cell Distribution Width 12.4 11.0 - 16.0 % [facility] Platelet Count 213 160 - 400 X10*3/uL [facility] Mean Platelet Volume 9.1(L) 9.4 - 12.3 fL [facility] Neutrophils Percent Auto 69.6 45 - 73 % [facility] Imm Gran Pct Auto 0.2 0.0 - 0.4 % [facility] Lymphocytes Percent Auto 19.4(L) 20 - 40 % [facility] Monocytes Percent Auto 9.2 2 - 11 % [facility] Eosinophils Percent Auto 1.1 0 - 4 % [facility] Basophils Percent Auto 0.5 0 - 2 % [facility] NRBC Pct Auto 0.0 0.0 - 0.2 /100WBC [facility] Neutrophils Absolute Auto 3.9 2.0 - 8.3 x10*3/uL [facility] Imm Gran Abs Auto 0.01 0.00 - 0.03 X10*3/uL [facility] Lymphocytes Absolute Auto 1.1(L) 1.2 - 4.9 X10*3/uL [facility] Monocytes Absolute Auto 0.5 0.1 - 1.2 X10*3/uL [facility] Eosinophils Absolute Auto 0.1 0.0 - 0.4 X10*3/uL [facility] Basophils Absolute Auto 0.0 0.0 - 0.2 X10*3/uL [facility] NRBC Abs Auto 0.000 0.0 - 0.012 X10*3/uL [facility] 01/11/2025 1:42 PM EDT 01/11/2025 1:45 PM EDT us Generic External Data Provider LAB BLOOD ORDERAB LES Final Result [facility] [address] [place] [phone] * hCG, Total, Quantitative (01/11/2025 1:42 PM EDT) HCG Quantitative <2 mIU/mL [facility] Comment:Weeks post LMP Appro ximate hCG(Last Menstrual Period) Range (mIU/ml)3 - 4 weeks 9 - 1304 - 5 weeks 75 - 2,6005 - 6 weeks 850 - 20,8006 - 7 weeks 4000 - 100,2007 - 12 weeks 11,500 - 289,73363 - 16 weeks 18,300 - 137,85037 - 29 weeks (2nd trimester) 1,400 - 53,51170 - 41 weeks (3rd trimester) 940 - [...] ORDERAB LES Final Result Performing Organization Address [facility] Co de Phone Number [facility] [address] [place] [phone] * Magnesium (01/11/2025 1:42 PM EDT) Magnesium 2.1 1.6 - 2.6 mg/dL [facility] 01/11/2025 1:42 PM EDT 01/11/2025 1:45 PM EDT Generic External Data Provider LAB BLOOD ORDERAB LES Final Result Performing Organization Address [facility] Co de Phone Number [facility] [address] [place] [phone] * Lipase (01/11/2025 1:42 PM EDT) Lipase 24 8 - 78 U/L [facility] 01/11/2025 1:42 PM EDT 01/11/2025 1:45 PM EDT Generic External Data Provider LAB BLOOD ORDERAB LES Final Result Performing Organization Address [facility]/ZIP Co de Phone Number [facility] [address] [place] [phone] [phone] * Hepatic Function Panel (01/11/2025 1:42 PM EDT) Pathologist [facility] Bilirubin, Total 0.5 0.0 - 1.0 mg/dL [facility] Bilirubin, Direct 0.2 0.0 - 0.5 mg/dL [facility] Aspartate Amino Transferase 20 5 - 31 U/L [facility] Alanine Aminotransferase 14 0 - 31 U/L [facility] Total Protein 7.0 6.5 - 8.0 g/dL [facility] Albumin Level 4.6 3.5 - 5.0 g/dL [facility] Alkaline Phosphatase 78 39 - 117 U/L [facility] 01/11/2025 1:42 PM EDT 01/11/2025 1:45 PM EDT Generic External Data Provider LAB BLOOD ORDERAB LES Final Result Performing Organization Address [facility] de Phone Number [facility] [address] [place] [phone] * (ABNORMAL) Basic Metabolic Panel (01/11/2025 1:42 PM EDT) [facility] Sodium 140 135 - 145 mmol/L [facility] Potassium 4.4 3.3 - 5.1 mmol/L [facility] Chloride 105 96 - 108 mmol/L [facility] Carbon Dioxide 29 22 - 29 mmol/L [facility] Anion Gap 10(L) 12 - 20 [facility] Urea Nitrogen (BUN) 12 9 - 16 mg/dL [facility] Creatinine, Serum 0.66 0.5 - 1.4 mg/dL [facility] Creatinine Clr Calc Pharmacy 68.9 [facility] Comment:Provided height and weight: 165.1 cm,47.536 kg.eGFR (calculated from the MDRD study equation) and eCrCl(calculated from the Cockcroft-Gault equation) are based ondifferent parameters and may not yield comparable results.If eCrCl result is absurd, please check patient'sheight/weight. Estimated Glomerular Filt Rate >60 [facility] Comment:Chronic Kidney Disea se: Estimated GFR < 60 mL/min/[id number] Kidney Disease: Estimated GFR < 15 mL/min/1.73m2 Glucose 91 60 - 115 mg/dL [facility] Calcium 9.7 8.4 - 10.2 mg/dL [facility] 01/11/2025 1:42 PM EDT 01/11/2025 1:45 PM EDT us Generic External Data Provider LAB BLOOD ORDERAB LES Final Result Performing Organization Address City/State/[facility] Co de Phone Number [facility] [address] [place] [phone] * US Pelvis Limited (12/29/2024 3:49 PM EDT) Anatomical Region Laterality Modality Pelvis Ultrasound 12/29/2024 3:49 PM EDT Narrative 12/29/2024 3:50 PM EDT [address] [address] Ultrasound Report Signed Patient: Lakisha Hearn MR#: [id number] : 1965 Acct:[id number] Age/Sex: 59 / F ADM Date: 12/28/24 Loc: HO.US Attending Dr: Jimmy Boo MD Ordering Physician: Jimmy Boo MD Date of Service: 12/28/24 Procedure(s): US pelvic limited Accession Number(s): [id number] cc: Jimmy Boo MD Reason for Exam: [...] 12/29/24 1550 DD/ 1549 TD/TT: 12/29/24 1549 Fifth Hand: Procedure Note Donotuseinterpreter, Image - 12/29/2024 [place] [address] Ultrasound Report Signed Patient: Lakisha Hearn AMR#: [id number] : 1965Acct:[id number] Age/Sex: 59 / FADM Date: 12/28/24 Loc: HO.US Attending Dr: Jimmy Boo MD Ordering Physician: Jimmy Boo MD Date of Service: 12/28/24 Procedure(s): US pelvic limited Accession Number(s): [id number] cc: Jimmy Boo MD Reason for Exam: [...] 12/29/24 1550 DD/ 1549 TD/TT: 12/29/24 1549 Fifth Hand: us Jimmy Boo MD IMG US PROCEDURES Edited Re sult - Final * XR Hand 3+ Views Right (12/19/2024 10:14 AM EDT) Anatomical Region Laterality Modality Upper Extremities, Hand Right Radiogra phic Imaging 12/19/2024 10:1 4 AM EDT Narrative 12/19/2024 10:24 AM EDT [place] [address] XRay Report Signed Patient: Lakisha Hearn MR#: [id number] : 1965 Acct:[id number] Age/Sex: 59 / F ADM Date: 12/19/24 Loc: AB[facility] Attending Dr: Jimmy Boo MD Ordering Physician: Jimmy Boo MD Date of Service: 12/19/24 Procedure(s): XR hand RT min 3V Accession Number(s): [id number] cc: Jimmy Boo MD Reason for Exam: [...] 12/19/24 1021 DD/ 1014 TD/TT: 12/19/24 1017 Fifth Hand: Procedure Note Donotuseinterpreter, Image - 12/19/[address] [address] XRay Report Signed Patient: Lakisha Hearn AMR#: [id number] : 1965Acct:[id number] Age/Sex: 59 / FADM Date: 12/19/24 Loc: HO.XRAY Attending Dr: Jimmy Boo MD Ordering Physician: Jimmy Boo MD Date of Service: 12/19/24 Procedure(s): XR hand RT min 3V Accession Number(s): [id number] cc: Jimmy Boo MD Reason for Exam: [...] 12/19/24 1021 DD/ 1014 TD/TT: 12/19/24 1017 Fifth Hand: us Jimmy Boo MD IMG XR PROCEDURES Edited Re sult - Final * Mammography (01/27/2023) Mammogram negative Anatomical Region Laterality Modality Other Narrative 01/27/2023 Bi rads -negative us Jimmy Boo MD HEALTH MAINTENANCE Final Re sult * Hepatitis C Antibody Reflex (11/09/2022 1:51 PM EDT) Hepatitis C Antibody Nonreactive Nonreactive [facility] Comment:Antibodies to HCV no t detected; does not exclude early acuteHCV infection. 11/09/2022 1:51 PM EDT 11/09/2022 5:49 PM EDT Venecia Butcher [facility] LAB BLOOD ORDERABLES Rach l Result Performing Organization Address [facility]/ZIP Co de Phone Number [facility] [address] [place] [phone] * HIV Ab/Ag ([facility]) (11/09/2022 1:51 PM EDT) Pathologist [facility] HIV AB/AG Nonreactive Nonreactive [facility] Comment:HIV-1 p24 Ag and/or HIV-1/HIV-2 Ab not detected.A test result that is nonreactive does not exclude thepossibility of exposure to or infection with HIV-1 and/orHIV-2. Nonreactive results in this assay for individualswith prior exposure to HIV-1 and/or HIV-2 may be due toantigen and antibody levels that are below the limit ofdetection of this assay.The [employer] Director Of Individual Giving HIV Ag/Ab Combo assay result andsupplemental assay results should be interpreted inconjunction with the patient's clinical presentation,history and other laboratory results. If the results areinconsistent with clinical evidence, additional testing issuggested to confirm the result. 11/09/2022 1:51 PM EDT 11/09/2022 5:49 PM EDT Venecia Butcher [facility] LAB BLOOD ORDERABLES Rach l Result Performing Organization Address [facility]/ZIP Co de Phone Number [facility] [address] [place] [phone] * Hm Colonoscopy (06/04/2022) Colonoscopy Normal [...] technology. [facility] Chief Deputy Clerk/Bailiff: SEE COMMENT [facility] Comment: DCR, CT(ASCP) CT screening location: [place] [address] HPV nRNA E6/E7 Not Detected Not Detected [facility] Comment: Methodology: Hub Lead-Mediated Amplification This assay detects E6/E7 viral messenger RNA (mRNA) from 14 high-risk HPV types (16,18,31,33,35,39,45,51,52,56,58,59,66,68). The analytical performance characteristics of this assay have been determined by [employer]. The modifications have not been cleared or approved by the FDA. This assay has been validated pursuant to the CLIA regulations and is used for clinical purposes. For additional information, please refer to http://education.[employer].Disconnect/faq/ODY213g0 (This link if provided for information/ educational [...] [facility] [address] [place] [address], from Last 3 Months or Most Recently Relevant to Health Maintenance Insurance [facility] [address] [phone] [facility] Care Teams Telephone Clerk Telegraph Office Relationship Specialty Start Date End Date Jimmy Boo MD [address] [place] [phone] PCP - General Internal Medicine 05/03/13
--- OUTSIDE RECORDS SUMMARY | 2025-02-07 16:29 | XMS_ITS | Encounter Summary ---
Author Organization [employer] Address [address] [facility] [address] 7t [place] [address] Care Team Providers Care Medical Engineer Name Role Phone Jimmy Boo MD Primary Care Provider [phone] Reason for Visit * Reason Onset Date Comments case back from lab?? 10/19/2022 Encounter Details Date Type Department Care Team ([facility] Contact Info) Description 10/19/2022 Telephone [facility] [address] [place] [address] Luis Guzman, DDS [address] [place] [address] case back from lab?? Social History Tobacco [...] Upcoming Encounters Date Type Department Care Team ([facility] Contact Info) Description 04/01/2025 2:15 PM EST Office Visit [facility] [address] [place] [address] Raza Boo documented as of this encounter Visit Diagnoses Not on filedocumented in this encounter Care Teams Medical Engineer Relationship Specialty Start Date End Date Jimmy Boo MD [address] [place] [address] PCP - General Internal Medicine 05/03/13 documented as of this encounter
--- OUTSIDE RECORDS SUMMARY | 2025-02-07 16:29 | XMS_ITS | Encounter Summary ---
Author Organization [employer] Address [address] [place] [address] 7 [place] [address] Care Team Providers Care Food Or Baggage Handling Rampman Name Role Phone Jimmy Boo MD Primary Care Provider [phone] Reason for Visit * Reason Comments Med Refill Encounter Details Date Type Department Care Team ([facility] Contact Info) Description 06/23/2022 Refill [facility] [address] [place] [address] Jimmy Boo MD [address] [place] [address] Primary insomnia Social History Tobacco Use Types [...] Encounters Date Type Department Care Team ([facility] Contact Info) Description 04/01/2025 2:15 PM EST Office Visit [facility] [address] [place] [address] Raza Boo documented as of this encounter Visit Diagnoses Diagnosis Primary insomnia Persistent disorder of initiating or maintaining sleep documented in this encounter Care Teams Food Or Baggage Handling Rampman Relationship Specialty Start Date End Date Jimmy Boo MD [address] [place] [address] PCP - General Internal Medicine 05/03/13 documented as of this encounter
--- OUTSIDE RECORDS SUMMARY | 2025-02-07 16:29 | XMS_ITS | Encounter Summary ---
Author Organization [employer] Address [address] [place] [address] 7 [place] [address] Care Team Providers Care School Cafeteria Cook Head Name Role Phone Jimmy Boo MD Primary Care Provider [phone]- [phone] Reason for Visit * Reason Comments Med Refill Encounter Details Date Type Department Care Team ([facility] Contact Info) Description 06/22/2022 Refill [facility] [address] [place], [place] [phone] Jimmy Boo MD [address] [place] [address] Primary insomnia Social History Tobacco Use Types [...] Upcoming Encounters Date Type Department Care Team ([facility] Contact Info) Description 04/01/2025 2:15 PM EST Office Visit [facility] [address] [place] [address] Raza oBo documented as of this encounter Visit Diagnoses Diagnosis Primary insomnia Persistent disorder of initiating or maintaining sleep documented in this encounter Care Teams School Cafeteria Cook Head Relationship Specialty Start Date End Date Jimmy Boo MD [address] [place] [address] PCP - General Internal Medicine 05/03/13 documented as of this encounter
--- OUTSIDE RECORDS SUMMARY | 2025-02-07 16:29 | XMS_ITS | Encounter Summary ---
Author Organization [employer] Address [address] [place] [address] 7 [place] [address] Care Team Providers Care Meter Calibrator Name Role Phone Jimmy Boo MD Primary Care Provider [phone]- [phone] Encounter Details Date Type Department Care Team ([facility] Contact Info) Description 03/02/2023 Abstract [facility] [address] [place] [address] Zahira Harris DDS [address] [place], [place] [phone] Social History Tobacco Use Types Packs/Day Years [...] Upcoming Encounters Date Type Department Care Team ([facility] Contact Info) Description 04/01/2025 2:15 PM EST Office Visit [facility] [address] [place] [address] Raza Boo documented as of this encounter Visit Diagnoses Not on filedocumented in this encounter Care Teams Meter Calibrator Relationship Specialty Start Date End Date Jimmy Boo MD [address] [place], [place] [phone] PCP - General Internal Medicine 05/03/13 documented as of this encounter
--- OUTSIDE RECORDS SUMMARY | 2025-02-07 16:29 | XMS_ITS | Encounter Summary ---
Author Organization [employer] [facility] Address [address] [place] [address] 7 [place] [address] Care Team Providers Care Personal Injury Litigation Paralegal Name Role Phone Jimmy Boo MD Primary Care Provider [phone] Reason for Visit * Reason Onset Date Comments rct appt 02/17/2023 Encounter Details Date Type Department Care Team ([facility] Contact Info) Description 02/17/2023 Telephone [facility] [address] [place] [address] Tricia Davis DDS rct appt Social History [...] Upcoming Encounters Date Type Department Care Team ([facility] Contact Info) Description 04/01/2025 2:15 PM EST Office Visit [facility] [address] [place] [address] Raza Boo documented as of this encounter Visit Diagnoses Not on filedocumented in this encounter Care Teams Personal Injury Litigation Paralegal Relationship Specialty Start Date End Date Jimmy Boo MD [address] [place] [address] PCP - General Internal Medicine 05/03/13 documented as of this encounter
== END 2025-02-07 13:33 | disposition home or self-care (01) ==
LOC: HO.LNP 13:32
PROVIDERS: Visit Provider Obstetrics & Gynecology
DX: R31.29 Other microscopic hematuria (principal)
CPT/HCPCS: 87086

== ENCOUNTER 2025-02-12 11:45 | Outpatient (REF) | payer OTHER, SELFPAY | END 2025-02-12 11:46 | disposition home or self-care (01) | LOC: HO.LNP 11:45 | PROVIDERS: PCP Internal Medicine; Visit Provider Obstetrics & Gynecology | DX: R87.810 Cervical high risk human papillomavirus (HPV) DNA test positive (principal); Z98.51 Tubal ligation status | CPT/HCPCS: 57454; 88305; 88341; 88342 ==

== ENCOUNTER 2025-02-12 11:45 | Outpatient (AMB) | payer OTHER, SELFPAY ==
--- OUTSIDE RECORDS SUMMARY | 2025-02-06 11:51 | XMS_ITS | Encounter Summary ---
Author Organization [facility] Address [address] [place] [address] Care Team Providers Care Caterpillar Mechanic Name Role Phone Jimmy Boo MD Primary Care Provider [phone] Reason for Referral * Imaging (Routine) - Pending Review Specialty Diagnoses / Procedures Referred By Lonny harris Referred To Contact Radiology Diagnoses Multiple sclerosis Procedures MR Thoracic Spine wo and w Contrast Ton Prather MD [address] [place] [address] Phone: tel: fax: [facility] Referral ID Status Reason Start Date Expiration Date V isits Requested Visits Authorized [id number] Pending Review 01/23/2025 01/23/2026 1 1 Reason for Visit * Imaging (Routine) - Pending Review Specialty Diagnoses / Procedures Referred By Lonny harris Referred To Contact Radiology Diagnoses Multiple sclerosis Procedures MR Thoracic Spine wo and w Contrast Ton Prather MD [address] [place] [address] Phone: tel: fax: [facility] Referral ID Status Reason Start Date Expiration Date V isits Requested Visits Authorized [id number] Pending Review 01/23/2025 01/23/2026 1 1 Encounter Details Date Type Department Care Team (Latest Contact Info) Description 02/06/2025 11:51 AM EST - 02/06/2025 11:59 PM EST Hospital Encounter [facility] MRI [address] [place] [phone] Multiple sclerosis Discharge Disposition: Home or Self [...] Description 03/27/2025 11:00 AM EST Office Visit [facility] [address] [facility] [address] [place] [phone] Ton Prather MD [address] [place] [address] documented as of this encounter Procedures Procedure Name Priority Date/Time Associated Diagnosis Comments MR THORACIC SPINE WO AND W CONTRAST Routine 02/06/2025 1:53 PM EST Multiple sclerosis documented in this encounter Results * MR Thoracic Spine wo and w Contrast (02/06/2025 1:53 PM EST) Anatomical Region Laterality Modality T-spine, Spine Magnetic Resonan ce 02/10/2025 9:04 AM EST Impressions 02/10/2025 1:21 PM EST No evidence of demyelination or abnormal enhancement in the thoracic spine. -------- FINAL REPORT -------- Dictated By: YI HOLLOWAY Dictated Date: 02/10/2025 09:04 ET Assigned Physician: YI HOLLOWAY Reviewed and Electronically Signed By: YI HOLLOWAY Signed Date: 02/10/2025 13:21 ET Workstation ID: [id number] Transcribed By: Self Edit Transcribed Date: 02/10/2025 09:04 ET Narrative 02/10/2025 1:21 PM EST PROCEDURE: Thoracic spine MRI INDICATION: Multiple sclerosis TECHNIQUE: Multiplanar, multisequence MRI of the thoracic spine without and with contrast. 10 mL Dotarem injected intravenously without complication from 15 mL vial. COMPARISON: No priors available. FINDINGS: Thoracic kyphosis is maintained. No fracture or suspicious marrow replacing lesion. Mild multilevel degenerative loss of normal disc height and signal with associated degenerative discogenic endplate change. Small central protrusion at T7-8 without significant spinal canal stenosis. Thoracic facet joints are within normal limits. No significant foraminal stenosis. The thoracic cord is normal in signal and morphology. No epidural collection or mass is seen within the spinal canal. No abnormal enhancement. No spinal muscles are within normal limits. The visualized intra-abdominal and intrathoracic structures are normal. Procedure Note Yi Holloway MD - 02/10/2025 PROCEDURE: Thoracic spine MRI INDICATION: Multiple sclerosis TECHNIQUE: Multiplanar, multisequence MRI of the thoracic spine withoutand with contrast. 10 mL Dotarem injected intravenously withoutcomplication from 15 mL vial. COMPARISON: No priors available. FINDINGS: Thoracic kyphosis is maintained. No fracture or suspicious marrow replacing lesion. Mild multilevel degenerative loss of normal disc height and signal withassociated degenerative discogenic endplate change. Small centralprotrusion at T7-8 without significant spinal canal stenosis. Thoracic facet joints are within normal limits. No significant foraminalstenosis. The thoracic cord is normal in signal and morphology. No epiduralcollection or mass is seen within the spinal canal. No abnormalenhancement. No spinal muscles are within normal limits. The visualizedintra-abdominal and intrathoracic structures are normal. IMPRESSION: No evidence of demyelination or abnormal enhancement in the thoracicspine. -------- FINAL REPORT -------- Dictated By: YI HOLLOWAY Dictated Date: 02/10/2025 09:04 ET Assigned Physician: YI HOLLOWAY Reviewed and Electronically Signed By: YI HOLLOWAY Signed Date: 02/10/2025 13:21 ET Workstation ID: [id number] Transcribed By: Self Edit Transcribed Date: 02/10/2025 09:04 ET Ton Prather MD IM MRI PROCEDURES Final Result documented in this encounter Visit Diagnoses Diagnosis Multiple sclerosis [...] 02/06/2025 documented in this encounter Care Teams Caterpillar Mechanic Relationship Specialty Start Date End Date Jimmy Boo MD [address] [place] [address] PCP - General Internal Medicine 11/23/19 documented as of this encounter
--- OUTSIDE RECORDS SUMMARY | 2025-02-06 11:52 | XMS_ITS | Encounter Summary ---
Author Organization [facility] Address [address] [place] [address] Care Team Providers Care Chief Engineer Drilling And Recovery Name Role Phone Jimmy Boo MD Primary Care Provider [phone] Reason for Referral * Imaging (Routine) - Pending Review Specialty Diagnoses / Procedures Referred By Lonny harris Referred To Contact Radiology Diagnoses Multiple sclerosis Procedures MR Cervical Spine wo and w Contrast Ton Prather MD [address] [place] [address] Phone: tel: fax: [facility] Referral ID Status Reason Start Date Expiration Date V isits Requested Visits Authorized [id number] Pending Review 01/23/2025 01/23/2026 1 1 Reason for Visit * Imaging (Routine) - Pending Review Specialty Diagnoses / Procedures Referred By Lonny harris Referred To Contact Radiology Diagnoses Multiple sclerosis Procedures MR Cervical Spine wo and w Contrast Ton Prather MD [address] [place] [address] Phone: tel: fax: [facility] Referral ID Status Reason Start Date Expiration Date V isits Requested Visits Authorized [id number] Pending Review 01/23/2025 01/23/2026 1 1 Encounter Details Date Type Department Care Team (Latest Contact Info) Description 02/06/2025 11:52 AM EST - 02/06/2025 11:59 PM EST Hospital Encounter [facility] MRI [address] [place] [phone] Multiple sclerosis Discharge Disposition: Home or Self [...] EST Office Visit [facility] 175 [facility] [address] [place] [phone] Ton Prather MD [address] [place] [address] documented as of this encounter Procedures Procedure Name Priority Date/Time Associated Diagnosis Comments MR CERVICAL SPINE WO AND W CONTRAST Routine 02/06/2025 1:52 PM EST Multiple sclerosis documented in this encounter Results * MR Cervical Spine wo and w Contrast (02/06/2025 1:52 PM EST) Anatomical Region Laterality Modality C-spine, Spine Magnetic Resonan ce 02/10/2025 1:21 PM EST Impressions 02/10/2025 1:37 PM EST No evidence of demyelination or abnormal enhancement in the cervical spine -------- FINAL REPORT -------- Dictated By: YI HOLLOWAY Dictated Date: 02/10/2025 13:21 ET Assigned Physician: YI HOLLOWAY Reviewed and Electronically Signed By: YI HOLLOWAY Signed Date: 02/10/2025 13:37 ET Workstation ID: [id number] Transcribed By: Self Edit Transcribed Date: 02/10/2025 13:21 ET Narrative 02/10/2025 1:37 PM EST PROCEDURE: Cervical spine MRI INDICATION: Multiple sclerosis TECHNIQUE: Multiplanar, multisequence MRI of the Cervical spine without and with contrast. 10 mL Dotarem injected intravenously without complication from a 15 mL vial with the remainder discarded. COMPARISON: 08/26/2024 FINDINGS: Cervical lordosis is maintained. No fracture or suspicious marrow replacing lesion. Degenerative loss of normal disc height and signal throughout the cervical spine with associated degenerative endplate spurring, similar compared to prior. Cervical facet joints are within normal limits. Cervical cord is normal in signal and morphology. No epidural collection or mass is seen within the spinal canal. No abnormal enhancement. Paraspinal muscles are within normal limits. Foramen magnum is normal. Findings by level: C2-C3: No focal disc protrusion, facet arthropathy, foraminal stenosis, or spinal canal stenosis. C3-C4: No focal disc protrusion, facet arthropathy, foraminal stenosis, or spinal canal stenosis. C4-C5: No focal disc protrusion, facet arthropathy, foraminal stenosis, or spinal canal stenosis. C5-C6: Left uncovertebral spur results in moderate left and no right foraminal stenosis. No spinal canal stenosis. C6-C7: No focal disc protrusion, facet arthropathy, foraminal stenosis, or spinal canal stenosis. C7-T1: No focal disc protrusion, facet arthropathy, foraminal stenosis, or spinal canal stenosis. Procedure Note Yi Holloway MD - 02/10/2025 PROCEDURE: Cervical spine MRI INDICATION: Multiple sclerosis TECHNIQUE: Multiplanar, multisequence MRI of the Cervical spine withoutand with contrast. 10 mL Dotarem injected intravenously withoutcomplication from a 15 mL vial with the remainder discarded. COMPARISON: 08/26/2024 FINDINGS: Cervical lordosis is maintained. No fracture or suspicious marrow replacing lesion. Degenerative loss of normal disc height and signal throughout the cervicalspine with associated degenerative endplate spurring, similar compared toprior. Cervical facet joints are within normal limits. Cervical cord is normal in signal and morphology. No epidural collectionor mass is seen within the spinal canal. No abnormal enhancement. Paraspinal muscles are within normal limits. Foramen magnum is normal. Findings by level: C2-C3: No focal disc protrusion, facet arthropathy, foraminal stenosis, orspinal canal stenosis. C3-C4: No focal disc protrusion, facet arthropathy, foraminal stenosis, orspinal canal stenosis. C4-C5: No focal disc protrusion, facet arthropathy, foraminal stenosis, orspinal canal stenosis. C5-C6: Left uncovertebral spur results in moderate left and no rightforaminal stenosis. No spinal canal stenosis. C6-C7: No focal disc protrusion, facet arthropathy, foraminal stenosis, orspinal canal stenosis. C7-T1: No focal disc protrusion, facet arthropathy, foraminal stenosis, orspinal canal stenosis. IMPRESSION: No evidence of demyelination or abnormal enhancement in the cervicalspine -------- FINAL REPORT -------- Dictated By: YI HOLLOWAY Dictated Date: 02/10/2025 13:21 ET Assigned Physician: YI HOLLOWAY Reviewed and Electronically Signed By: YI HOLLOWAY Signed Date: 02/10/2025 13:37 ET Workstation ID: [id number] Transcribed By: Self Edit Transcribed Date: 02/10/2025 13:21 ET Ton Prather MD IMG MRI PROCEDURES Final Result documented in this encounter Visit Diagnoses Diagnosis Multiple sclerosis documented in this encounter Care Teams Chief Engineer Drilling And Recovery Relationship Specialty Start Date End Date Jimmy Boo MD [address] [place] [address] PCP - General Internal Medicine 11/23/19 documented as of this encounter
[2025-02-12 11:50] VITALS: BP 110/70; BMI 21.2
--- NOTE | 2025-02-12 11:50 | A.OFFVIS_ITS ---
Vital Signs 02/12/25 11:50 Height 4 ft 11 in Weight 105 lb BMI 21.2 BP 110/70 Intake Visit Reasons: Colposcopy Director Global Development Required: No Information Interpreted: non-clinical & clinical Layout Former: Layout Former Present (Shaila Dave LITTLE) Accompanied by: Self / Same As Patient Allergies Iodinated Contrast Media (IV CONTRAST) Allergy (Severe, Verified 02/12/25 11:53) (ULTRAVIST) TINGLING OF LIPS AND SWELLING LIPS AND EYES adhesive tape (ADHESIVE TAPE) Allergy (Intermediate, Verified 02/12/25 11:53) BLISTERS tamoxifen (TAMOXIFEN) Allergy (Mild, Verified 02/12/25 11:53) GI UPSET Sulfa (Sulfonamide Antibiotics) (SULFA (SULFONAMIDE ANTIBIOTICS)) Allergy (Un known, Verified 02/12/25 11:53) UNKNOWN bee pollen (bee stings) Allergy (Verified 02/12/25 11:53) Swelling Post menopausal: Yes HPI Comments Details: Presenting for abnormal cervical cytology showing negative Pap/HPV 16 positive [facility] Medical History Breast cancer History of right breast cancer Hypothyroid Multiple sclerosis Seizure Dyspnea on exertion Palpitations Asthma Subcutaneous mass Interstitial cystitis Surgical History Hx of elbow surgery Hx of rotator cuff surgery History of cystoscopy History of excision of mass (06/07/18) History of colonoscopy (06/2016) History of lumpectomy of right breast History of right breast biopsy History of tubal ligation History of ear surgery Family History Mother Colon cancer Father Bone cancer Lung cancer Brother Cancer of unknown origin Sister Leaky heart valve Brother CHF (congestive heart failure) Social History Household Members: None Housing: Apartment Alcohol intake: current Alcohol intake frequency: holidays/special occasions only Patient Tobacco Use Status: Former Tobacco user Tobacco use type: Cigarette Years Smoked: 8 Advance Directives Date on File: 09/13/14 Current occupational status: disabled Current occupation: rt hand Sexual orientation: Straight/Heterosexual Gender identity: Female Review of Systems Const All systems reviewed & are unremarkable except as noted in HPI and below Reports as per HPI and Reports no additional complaints GI Reports no additional complaints Reports no additional complaints Physical Exam Vital Signs: Last Vital Signs BP 110/70 02/12/25 11:50 BMI result Body Mass Index 21.2 Office Procedures Colposcopy Colposcopy: Pre-Procedure Counseling: Before beginning the procedure, I conducted comprehensive counseling with the patient. We thoroughly discussed the procedure itself, including its details, alternatives, and all associated risks. This included but not limited to the following complications such as bleeding, infection, and injury to the vagina, bladder, and vessels, as well as the potential need for transfusion with all its associated risks. Subsequently, the patient sign the consent. Pap smear result: Pap negative/HPV 16 positive Urine test in office = Negative Procedure: During the procedure, the following steps were performed: A speculum was inserted, and acetic acid was applied. Colposcopy was conducted, allowing visualization of the transformation zone. Acetowhite lesions were identified at the 12+ 1 o'clock position. Cervical biopsies were obtained from the 12+ 1 o'clock position, followed by an endocervical curettage (ECC). Vaginoscopy of the upper vagina revealed no evidence of aceto-white lesions. Hemostasis was achieved using Monsel solution, and the patient tolerated the procedure well. Post-Procedure Instructions: The patient was advised to promptly contact the office or the after hours answering service or go to the emergency room if experiencing a temperature exceeding 100.4?F, abdominal pain, nausea/vomiting, or bleeding. Additionally, the patient was instructed to abstain from vaginal intercourse and bathtub use. The patient confirmed understanding of these instructions. Discharge Instructions: The patient was instructed to schedule a follow-up appointment in 2 weeks for further evaluation and management. Please note that this note was generated using a voice recognition program, and errors may have occurred during business department chair. [id number] of cervix including upper vagina with biopsy and ECC Procedure code (CPT) selection complete Assessment & Plan Assessment & Plan (1) Cervical high risk HPV (human papillomavirus) test positive: Comment: HPV 16 positive HPV 18 negative, negative Pap Code(s): R87.810 - Cervical high risk human papillomavirus (HPV) DNA test positive Category: Medical Plan: Discussed with the patient the result of her abnormal cervical screening, HPV 16 positive, its significance, risk of progression, persistence, and regression. the false positive/negative rate of a Pap smear as a screening test in detecting cervical cancer and the indication for a diagnostic test -colposcopy, biopsy, endocervical curettage. The patient verbalized understanding and agreed with the plan, all questions answered. Colposcopy, biopsy /ECC done, see procedure note Orders: Orders AMB Colposcopy Today R87.810 - Cervical high risk human papillomavirus (HPV) DNA test positive Coding Level of Care Code Procedure Only Diagnoses Cervical high risk HPV (human papillomavirus) test positive R87.810 CPT Codes Colposcopy - CPT: 09181-[id number] of cervix including upper vagina with biopsy and ECC ([id number])
--- OUTSIDE RECORDS SUMMARY | 2025-02-12 13:49 | XMS_ITS | Encounter Summary ---
Author Organization [employer] Address [address] [facility] 7t [place] [address] Care Team Providers Care Application Developer Manager Name Role Phone Jimmy Boo MD Primary Care Provider [phone] Reason for Visit * Reason Comments Med Refill Encounter Details Date Type Department Care Team ([facility] st Contact Info) Description 12/28/2023 Refill [facility] MEDICINE [address] [place] [address] Jimmy Boo MD [address] [place] [address] Primary insomnia Social History Tobacco Use Types [...] t he electric, gas, oil or water [employer] threatened to shut off services in your [...] [facility] ADULT [facility] [address] [place] [address] Raza Boo documented as of this encounter Visit Diagnoses Diagnosis Primary insomnia Persistent disorder of initiating or maintaining sleep documented in this encounter Care Teams Application Developer Manager Relationship Specialty Start Date End Date Jimmy Boo MD [address] [place] [address] PCP - General Internal Medicine 05/03/13 documented as of this encounter
--- OUTSIDE RECORDS SUMMARY | 2025-02-12 13:49 | XMS_ITS | Encounter Summary ---
Author Organization [employer] Address [address] [facility] 7t [place] [address] Care Team Providers Care Tape Control Skin Or Spar Mill Operator Name Role Phone Jimmy Boo MD Primary Care Provider [phone] Reason for Visit * Reason Comments Med Refill Encounter Details Date Type Department Care Team ([facility] st Contact Info) Description 12/29/2023 Refill [facility] MEDICINE [address] [place] [address] Jimmy Boo MD [address] [place] [address] Primary insomnia Social History Tobacco Use Types [...] t he electric, gas, oil or water [employer] threatened to shut off services in your [...] [facility] [address] [place] [address] Raza Boo documented as of this encounter Visit Diagnoses Diagnosis Primary insomnia Persistent disorder of initiating or maintaining sleep documented in this encounter Care Teams Tape Control Skin Or Spar Mill Operator Relationship Specialty Start Date End Date Jimmy Boo MD [address] [place] [address] PCP - General Internal Medicine 05/03/13 documented as of this encounter
--- OUTSIDE RECORDS SUMMARY | 2025-02-12 13:49 | XMS_ITS | Encounter Summary ---
Author Organization [employer] Address [address] [facility] 7t [place] [address] Care Team Providers Care Spring Encaser Name Role Phone Jimmy Boo MD Primary Care Provider [phone] Encounter Details Date Type Department Care Team ([facility] Contact Info) Description 11/28/2023 Orders Only [facility] CHC MED & PEDS [address] [place], [place] [phone] Jimmy Boo MD [address] [place] [address] Social History Tobacco Use Types Packs/Day Years [...] Visit [facility] ADULT DENTAL [address] [place] [address] Raza Boo documented as of this encounter Visit Diagnoses Not on filedocumented in this encounter Care Teams Spring Encaser Relationship Specialty Start Date End Date Jimmy Boo MD [address] [place] [address] PCP - General Internal Medicine 05/03/13 documented as of this encounter
--- OUTSIDE RECORDS SUMMARY | 2025-02-12 13:49 | XMS_ITS | Encounter Summary ---
Author Organization [employer] Address [address] [facility] [address] 7[address] [place] [address] Care Team Providers Care Compliance Testing Analyst Name Role Phone Jimmy Boo MD Primary Care Provider [phone] Reason for Visit * Reason Comments Med Refill Encounter Details Date Type Department Care Team ([facility] Contact Info) Description 12/02/2023 Refill [facility] CHC ADULT DENTAL [address] [place] [address] Luis Guzman DDS [address] [place] [address] Social History Tobacco Use Types Packs/Day Years [...] encounter Miscellaneous Notes * Telephone Encounter - Lusi Guzman DDS - 12/06/2023 10:20 AM EDT Approving, but needs appt for additional refills. documented in this encounter Plan of Treatment Upcoming Encounters Date Type Department Care Team ([facility] st Contact Info) Description 04/01/2025 2:15 PM EST Office Visit [facility] ADULT DENTAL [address] [place] [address] Raza Boo documented as of this encounter Visit Diagnoses Not on filedocumented in this encounter Care Teams Compliance Testing Analyst Relationship Specialty Start Date End Date Jimmy Boo MD [address] [place] [address] PCP - General Internal Medicine 05/03/13 documented as of this encounter
--- OUTSIDE RECORDS SUMMARY | 2025-02-12 13:49 | XMS_ITS | Encounter Summary ---
Author Organization [email or web address] Address [address] [facility] 7t [place] [address] Care Team Providers Care Paper Core Machine Operator Name Role Phone Jimmy Boo MD Primary Care Provider [phone] Reason for Visit * Reason Onset Date Comments Nurse Triage 10/24/2023 Encounter Details Date Type Department Care Team ([facility] st Contact Info) Description 10/24/2023 Telephone [facility] CHC MED & PEDS [address] [place], [place] [phone] Jimmy Boo MD [address] [place] [address] Nurse Triage Social History Tobacco Use Types [...] past 12 months, has t he electric, [employer], oil or water [employer] threatened to shut off services in your [...] PCP. Please see notes, Please contact at [phone] * Telephone Encounter - Diane Garcia RN [...] video call tomorrow when PCP opens [facility] schedule 10/25/23. Pt. Would prefer for RX [...] caller accepted this outcome Contact pt at [phone] documented in this encounter Plan of Treatment Upcoming Encounters Date Type Department Care Team (Late st Contact Info) Description 04/01/2025 2:15 PM EST Office Visit [facility] ADULT DENTAL [address] [place] [address] Raza Boo documented as of this encounter Visit Diagnoses Diagnosis Primary insomnia Persistent disorder of initiating or maintaining sleep documented in this encounter Care Teams Paper Core Machine Operator Relationship Specialty Start Date End Date Jimmy Boo MD [address] [place] [address] PCP - General Internal Medicine 05/03/13 documented as of this encounter
--- OUTSIDE RECORDS SUMMARY | 2025-02-12 13:50 | XMS_ITS | Encounter Summary ---
Author Organization [employer] Address [address] [facility] 7t [place] [address] Care Team Providers Care It Director Name Role Phone Jimmy Boo MD Primary Care Provider [phone] Reason for Visit * Reason Onset Date Comments Dr. Guzman refill Sodium Flouride 5000 cream too thpaste 07/12/2024 Encounter Details Date Type Department Care Team ([facility] Contact Info) Description 07/12/2024 Telephone [facility] ADULT DENTAL [address] [place] [address] Luis Guzman DDS [address] [place] [address] Dr. Guzman refill Sodium Flouride 5000 cream [...] [facility] AD[facility] [address] [place] [address] Raza Boo documented as of this encounter Visit Diagnoses Not on filedocumented in this encounter Additional Health Concerns Assessment Noted Time PHQ-9 Depression Total Score: 8 06/05/19 25 2:12 PM EST documented as of this encounter Care Teams It Director Relationship Specialty Start Date End Date Jimmy Boo MD [address] [place] [address] PCP - General Internal Medicine 05/03/13 documented as of this encounter
--- OUTSIDE RECORDS SUMMARY | 2025-02-12 13:50 | XMS_ITS | Encounter Summary ---
Author Organization [employer] Address [address] [facility] [address] [place] [address] Care Team Providers Care Senior Security Architect Name Role Phone Jimmy Boo MD Primary Care Provider [phone] Reason for Visit * Reason Comments Med Refill Encounter Details Date Type Department Care Team ([facility] Contact Info) Description 07/27/2024 Refill [facility] CHC ADULT DENTAL [address] [place] [address] Luis Guzman DDS [address] [place] [address] Social History Tobacco Use Types Packs/Day Years [...] [facility] ADULT DENTAL [address] [place] [address] Raza Boo documented as of this encounter Visit Diagnoses Not on filedocumented in this encounter Additional Health Concerns Assessment Noted Time PHQ-9 Depression Total Score: 8 06/05/19 25 2:12 PM EST documented as of this encounter Care Teams Senior Security Architect Relationship Specialty Start Date End Date Jimmy Boo MD [address] [place] [address] PCP - General Internal Medicine 05/03/13 documented as of this encounter
--- OUTSIDE RECORDS SUMMARY | 2025-02-12 13:50 | XMS_ITS | Encounter Summary ---
Author Organization [employer] Address [address] [place] [address] 7 [place] [address] Care Team Providers Care Recreation Supervisor Name Role Phone Jimmy Boo MD Primary Care Provider [phone] Reason for Referral * Consultation (Routine) - Closed Specialty Diagnoses / Procedures Referred By Contac t Referred To Contact Neurology Diagnoses Chronic tension-type headache, not intractable Jimmy Boo MD [address] [place] [address] Phone: tel: fax: Rory Garber MD [address] [place] [address] [place] [address] Phone: tel: fax: Referral ID Status Reason Start Date Expiration Date V isits Requested Visits Authorized [id number] Closed Specialty Services Required 03/18/2024 03/18/2025 1 1 Encounter Details Date Type Department Care Team (Late st Contact Info) Description 03/18/2024 Orders Only [facility] CHC MED & PEDS [address] [place], [place] [phone] Jimmy Boo MD [address] [place], [place] [phone] Chronic tension-type headache, not intractable (Primary Dx) [...] [facility] ADULT DENTAL [address] [place] [address] Raza Boo Scheduled Referrals Name Type Priority Associated Diagnoses Orde r Schedule Referral to Neurology Outpatient Referral Routine Chronic tension-type headache, not intractable Expected: 03/18/2024 (Approximate), Expires: 03/18/2025 documented as of this encounter Visit Diagnoses Diagnosis Chronic tension-type headache, not intractable- Primary Chronic tension type headache documented in this encounter Care Teams Recreation Supervisor Relationship Specialty Start Date End Date Jimmy Boo MD [address] [place] [address] PCP - General Internal Medicine 05/03/13 documented as of this encounter
--- OUTSIDE RECORDS SUMMARY | 2025-02-12 13:50 | XMS_ITS | Encounter Summary ---
Author Organization [employer] Address [address] [facility] 7t [place] [address] Care Team Providers Care Farm Crew Member Name Role Phone Jimmy Boo MD Primary Care Provider [phone] Reason for Visit * Reason Comments Med Refill Encounter Details Date Type Department Care Team ([facility] Contact Info) Description 03/16/2022 Refill [facility] MEDICINE [address] [place] [address] Jimmy Boo MD [address] [place], [place] [phone] Insomnia, unspecified Social History Tobacco Use Types [...] Upcoming Encounters Date Type Department Care Team ([facility] Contact Info) Description 04/01/2025 2:15 PM EST Office Visit [facility] CHC ADULT DENTAL [address] [place] [address] Raza Boo documented as of this encounter Visit Diagnoses Diagnosis Insomnia, unspecified documented in this encounter Care Teams Farm Crew Member Relationship Specialty Start Date End Date Jimmy Boo MD [address] [place] [address] PCP - General Internal Medicine 05/03/13 documented as of this encounter
--- OUTSIDE RECORDS SUMMARY | 2025-02-12 13:50 | XMS_ITS | Encounter Summary ---
Author Organization [employer] Address [address] [facility] 7 [place] [address] Care Team Providers Care Grainer Machine Name Role Phone Jimmy Boo MD Primary Care Provider [phone] Encounter Details Date Type Department Care Team (Latest Contact Info) Description 08/16/2018 Abstract [facility] CONVERSIONS Dental, [...] 04/01/2025 2:15 PM EST Office Visit [facility] ADULT D[facility]AL [address] [place] [address] Raza Boo documented as of this encounter Visit Diagnoses Not on filedocumented in this encounter Care Teams Grainer Machine Relationship Specialty Start Date End Date Jimmy Boo MD [address] [place] [address] PCP - General Internal Medicine 05/03/13 documented as of this encounter
--- OUTSIDE RECORDS SUMMARY | 2025-02-12 13:50 | XMS_ITS | Encounter Summary ---
Author Organization [employer] [facility] Address [address] [facility] 7 [place] [address] Care Team Providers Care Senior Product Development Manager Name Role Phone Jimmy Boo MD Primary Care Provider [phone] Encounter Details Date Type Department Care Team [...] [facility] [address] [place] [address] Raza Boo documented as of this encounter Visit Diagnoses Not on filedocumented in this encounter Care Teams Senior Product Development Manager Relationship Specialty Start Date End Date Jimmy Boo MD [address] [place] [address] PCP - General Internal Medicine 05/03/13 documented as of this encounter
--- OUTSIDE RECORDS SUMMARY | 2025-02-12 13:50 | XMS_ITS | Encounter Summary ---
Author Organization [employer] Address [address] [place] [address] 7 [place] [address] Care Team Providers Care Land Department Head Name Role Phone Jimmy Boo MD Primary Care Provider [phone] Reason for Visit * Reason Comments Med Refill Encounter Details Date Type Department Care Team ([facility] Contact Info) Description 06/24/2022 Refill [facility] MED & PEDS [address] [place] [address] Jimmy Boo MD [address] [place] [address] Primary insomnia Social History Tobacco Use Types [...] Encounters Date Type Department Care Team ([facility] Contact Info) Description 04/01/2025 2:15 PM EST Office Visit [facility] ADULT DENTAL [address] [place] [address] Raza Boo documented as of this encounter Visit Diagnoses Diagnosis Primary insomnia Persistent disorder of initiating or maintaining sleep documented in this encounter Care Teams Land Department Head Relationship Specialty Start Date End Date Jimmy Boo MD [address] [place] [address] PCP - General Internal Medicine 05/03/13 documented as of this encounter
--- OUTSIDE RECORDS SUMMARY | 2025-02-12 13:50 | XMS_ITS | Encounter Summary ---
Author Organization [employer] [facility] Address [address] [place] [address] 7 [place] [address] Care Team Providers Care Substance Abuse Nurse Name Role Phone Jimmy Boo MD Primary Care Provider [phone] Encounter Details Date Type Department Care Team (Late Contact Info) Description 05/16/2023 Abstract [facility] ADULT DENTAL [address] [place] [address] Mary Jane Massey DMD Social History Tobacco [...] Description 04/01/2025 2:15 PM EST Office Visit [facility] ADULT DENTAL [address] [place] [address] Raza Boo documented as of this encounter Visit Diagnoses Not on filedocumented in this encounter Care Teams Substance Abuse Nurse Relationship Specialty Start Date End Date Jimmy Boo MD [address] [place] [address] PCP - General Internal Medicine 05/03/13 documented as of this encounter
--- OUTSIDE RECORDS SUMMARY | 2025-02-12 13:50 | XMS_ITS | Data Portability ---
Author Organization [employer] [facility], [facility] Address [address] [place] [address] Care Team Providers Care Press Shop Supervisor Name Role Phone Unavailable OTHER HIM CCA OTHER Assessment Encounter Date Assessment Date Assessment LastModified by Organization Details LastModified Time 04/10/2024 04/10/2024 I provided real -time medical direction via phone for this encounter, and was available for additional phone based assistance as needed. I have reviewed the Assessment and Plan as documented by the Digester Capper. We discussed the diagnostic uncertainty of home [...] to call 911- verbalized understanding of instruction [email or web address] Not available 04/10/2024 17:16:10 Plan of Treatment Reminders Order Date Submit Date Provider Last Modified By Organization Details Last Modified Time Details Appointments None recorded. Lab None recorded. Referral None recorded. Procedures None recorded. Surgeries None recorded. Imaging None recorded. Medication Orders prednisone 20 mg tablet 2024 025 [email or web address] Not available 14:39:14 prednisone 20 mg tablet 2024 025 [facility]arm[facility] #[id number], [address] [facility] [place], [address], 14:39:17 Patient TargetsNo targets recorded. Patient InstructionsNo instructions recorded. Reason for Referral None Reported. Medical Equipment None Reported. Allergies Allergen ID Allergen Name Allergen Category Reaction Reaction Severity Criticality Documentation Date Start Date Code Code System Note Provider Name and Address Organization Details Recorded Time 16760 topiramat e medicatio n Not available Not available Not available 04/10/2024 23091 RxNorm Not Available [facility] - production 10:14:26 08919 Bactrim medicatio n Not available Not available Not available 04/10/2024 06177 9 RxNorm Not Available [facility] - production 10:14:26 60135 Iodinated contrast media (substanc e) medicatio n Not available Not available Not available 04/10/2024 30141 2003 SNOMED Cara Bauer MD [address] [place] [address],[address], [place], [address], [employer] 14:33:28 97534 tamoxifen medicatio n Not available Not available Not available 04/10/2024 23151 RxNorm Cara Bauer MD [address] [place] [address],[address], [place], [address], [employer] 14:33:55 Medications Name Sig Start Date Stop [...] % 149.86 cm 80 /min 18 /min 60498.1 2 g 147/94 mm[Hg] Not Available [facility] [...] ICD10 Code Diagnosis IMO Codes Diagnosis Note 00157 Cara Bauer MD Main - inst[address] [address] 04/10/2024 14:14:38 04/10/2024 18:10:27 Atypical facial pain 96797269 G50.1 Possible trigeminal neuralgia/ discussed gabapentin with [...] Gill Member ID Guarantor Name 04/28/2024 1 [facility] - DOS ON OR AFTER 2022 - DUAL ELIGIBLE - LONG TERM OPTIONS AND ONE CARE (MEDICARE REPLACEMENT/AD VANTAGE - HMO) Lakisha Hearn [id number] Lakisha Hearn Notes Date Note Type Note Provider Name and Address Organization Details Recorded Time 04/10/2024 text/html ROS as noted in the HPI HPI: Patient with complaints of right sided face pain for 4-5 days. No fever, slight headache. Pain right anabaptism forehead eye and face.Recovered COVID March 2024 ...................... ...................... ...................... ...................... ...................... ...................... ......... [facility] Nurse Triage Notes (Malia Kent - YVONNE): Chief Complaints: Headache PMH: Multiple Sclerosis, Cigarette Smoker, Gastroesophageal Reflux Disease (GERD) PMH Reviewed at 04/10/2024:14 Allergies Reviewed at 04/10/2024 - 10:14 Comments: HPI reviewed Allergies BEE ...................... ...................... ...................... ...................... ...................... ...................... ......... Digester Capper Note From Kuldip Kidd: SC1 dispatched to [...] ...................... ...................... ...................... ...................... ...................... ...................... ......... [facility] Consulted: Cara Bauer ...................... ...................... ...................... ...................... ...................... ...................... ......... Disposition: Fulfilled SEGMD: Patient clearly reported to me she has a headache when she gets up in the am for months/ she describes that she has pain from her right lateral orbit to her right temporal /parietal area-it feels like ygyp-mex-nskeswo with a sharp component, but it does [...] not a diabetic. Cara Bauer MD [address] [facility],[address], [place], [address], [employer], TAMIKO 04/10/2024 17:16:13 OBGyn Episode No OBEpisode recorded.
--- OUTSIDE RECORDS SUMMARY | 2025-02-12 13:50 | XMS_ITS | Encounter Summary ---
Author Organization [employer] Address [address] [facility] [address] [place] [address] Care Team Providers Care Community Chest Officer Name Role Phone Jimmy Boo MD Primary Care Provider [phone] Reason for Visit * Reason Comments Med Refill Encounter Details Date Type Department Care Team ([facility] Contact Info) Description 08/27/2023 Refill [facility] CHC ADULT DENTAL [address] [place] [address] Mary Jane Massey DMD Social History Tobacco [...] [facility] ADULT D[facility]AL [address] [place] [address] Raza Boo documented as of this encounter Visit Diagnoses Not on filedocumented in this encounter Care Teams Community Chest Officer Relationship Specialty Start Date End Date Jimmy Boo MD [address] [place] [address] PCP - General Internal Medicine 05/03/13 documented as of this encounter
--- OUTSIDE RECORDS SUMMARY | 2025-02-12 13:50 | XMS_ITS | Encounter Summary ---
Author Organization [employer] Address [address] [facility] 7 [place] [address] Care Team Providers Care Art Conservator Name Role Phone Jimmy Boo MD Primary Care Provider [phone] Reason for Visit * Reason Comments Med Refill Encounter Details Date Type Department Care Team ([facility] Contact Info) Description 04/22/2022 Refill [facility] [address] [place], [place] [phone] Jimmy Boo MD [address] [place], [place] [phone] SOB (shortness of breath) Social History Tobacco [...] Upcoming Encounters Date Type Department Care Team ([facility] Contact Info) Description 04/01/2025 2:15 PM EST Office Visit [facility] CHC ADULT DENTAL [address] [place] [address] Raza Boo documented as of this encounter Visit Diagnoses Diagnosis SOB (shortness of breath) Shortness of breath documented in this encounter Care Teams Art Conservator Relationship Specialty Start Date End Date Jimmy Boo MD [address] [place] [address] PCP - General Internal Medicine 05/03/13 documented as of this encounter
--- OUTSIDE RECORDS SUMMARY | 2025-02-12 13:50 | XMS_ITS | Encounter Summary ---
Author Organization [employer] Address [address] [facility] 7t [place] [address] Care Team Providers Care In School Suspension Aide Name Role Phone Jimmy Boo MD Primary Care Provider [phone] Encounter Details Date Type Department Care Team ([facility] Contact Info) Description 06/25/2022 Orders Only [facility] MED & PEDS [address] [place], [place] [phone] Gray Barnes MD [address] [place], [place] [phone] Primary insomnia; SOB (shortness of breath) Social [...] Upcoming Encounters Date Type Department Care Team ([facility] Contact Info) Description 04/01/2025 2:15 PM EST Office Visit [facility] ADULT DENTAL [address] [place] [address] Raza Boo documented as of this encounter Visit Diagnoses Diagnosis Primary insomnia Persistent disorder of initiating or maintaining sleep SOB (shortness of breath) Shortness of breath documented in this encounter Care Teams In School Suspension Aide Relationship Specialty Start Date End Date Jimmy Boo MD [address] [place] [address] PCP - General Internal Medicine 05/03/13 documented as of this encounter
--- OUTSIDE RECORDS SUMMARY | 2025-02-12 13:50 | XMS_ITS | Encounter Summary ---
Author Organization [employer] Address [address] [facility] 7t [place] [address] Care Team Providers Care Prison Librarian Name Role Phone iJmmy Boo MD Primary Care Provider [phone] Reason for Visit * Reason Onset Date Comments Med Refill 07/13/2023 Encounter Details Date Type Department Care Team (Late Contact Info) Description 07/13/2023 Refill [facility] CHC ADULT DENTAL [address] [place] [address] Luis Guzman DDS [address] [place] [address] Social History Tobacco Use Types Packs/Day Years [...] Care Team ([facility] Contact Info) Description 04/01/2025 2:15 PM EST Office [facility] ADULT DENTAL [address] [place] [address] Raza Boo documented as of this encounter Visit Diagnoses Not on filedocumented in this encounter Care Teams Prison Librarian Relationship Specialty Start Date End Date Jimmy Boo MD [address] [place] [address] PCP - General Internal Medicine 05/03/13 documented as of this encounter
--- OUTSIDE RECORDS SUMMARY | 2025-02-12 13:50 | XMS_ITS | Encounter Summary ---
Author Organization [employer] Address [address] [facility] [address] [facility] [address] [address] [place] [address] Care Team Providers Care Certifier Name Role Phone Jimmy Boo MD Primary Care Provider [phone] Reason for Visit * Reason Comments Med Refill Encounter Details Date Type Department Care Team ([facility] Contact Info) Description 10/03/2023 Refill [facility] CHC ADULT DENTAL [address] [place] [address] Mary Jane Massey DMD Social History Tobacco [...] [facility] ADULT DENTAL [address] [place] [address] Raza Boo documented as of this encounter Visit Diagnoses Not on filedocumented in this encounter Care Teams Certifier Relationship Specialty Start Date End Date Jimmy Boo MD [address] [place] [address] PCP - General Internal Medicine 05/03/13 documented as of this encounter
--- OUTSIDE RECORDS SUMMARY | 2025-02-12 13:50 | XMS_ITS | Clinical Summary ---
Author Organization [address] [facility] Address [address] [place] [address] Phone Care Team Providers Care Drafter (Cad) Electrical Name Role Phone Jimmy Boo MD Primary Care Provider [phone] Allergies Active Allergy Reactions Criticality Noted Date [...] - 02/06/2025 11:59 PM EST Hospital Encounter [facility] MRI [address] [place] [address] Multiple sclerosis Discharge Disposition: Home or Self Care 02/06/2025 11:51 AM EST - 02/06/2025 11:59 PM EST Hospital Encounter [facility] MRI [address] [place] [address] Multiple sclerosis Discharge Disposition: Home or Self Care 01/23/2025 11:40 AM EDT Office Visit [facility] [address] [facility] [address] [place] [address] Ton Prather MD Multiple sclerosis (Primary Dx); Other fatigue; Gait abnormality from Last 3 Months Surgical History Surgery Date Site/Laterality Comments OTHER SURGICAL HISTORY PROCEDURE: [place] EXC [place]THOL[place] GL[place]/CYST; COMMENT: Vulva lipoma resection 06/2018 TUBAL LIGATION PROCEDURE: HISTORICAL TUBAL LIGATION OTHER SURGICAL HISTORY PROCEDURE: [place] CYSTOURETHROSCOPY W/INTERNAL URETHROTOMY; COMMENT: urethral diverticulum OTHER [...] in female; COMMENT: Right IDC, pT1c N1a, 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, 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, s/p partial mastectomy and [...] Description 03/27/2025 11:00 AM EST Office Visit [facility] [address] [facility] [address] [place] [address] Ton Prather MD [address] [place] [address] Health Maintenance Due Date Last Done Comments [...] Routine 02/06/2025 1:53 PM EST Multiple sclerosis MR CERVICAL SPINE WO AND W CONTRAST Routine 02/06/2025 1:52 PM EST Multiple sclerosis PAP SMEAR Routine 05/10/2022 from Last 3 Months or Most Recently Relevant to Health Maintenance Results * MR Thoracic Spine wo and [...] Signed Date: 02/10/2025 13:21 ET Workstation ID: [id number] Transcribed By: Self Edit Transcribed Date: 02/10/2025 [...] and intrathoracic structures are normal. Procedure Note iY Holloway MD - 02/10/2025 PROCEDURE: Thoracic spine [...] Signed Date: 02/10/2025 13:21 ET Workstation ID: [id number] Transcribed By: Self Edit Transcribed Date: 02/10/2025 09:04 ET Ton Prather MD IMG MRI PROCEDURES Final Result * MR Cervical Spine wo and w [...] Signed Date: 02/10/2025 13:37 ET Workstation ID: [id number] Transcribed By: Self Edit Transcribed Date: 02/10/2025 [...] Signed Date: 02/10/2025 13:37 ET Workstation ID: [id number] Transcribed By: Self Edit Transcribed Date: 02/10/2025 13:21 ET Ton Prather MD [facility] MRI PROCEDURES Final Result * Pap smear (05/10/2022) 05/10/2022 Narrative HISTORICAL TESTING LAB RESULTING AGENCY - 05/21/2022 11:11 AM EST [id number] THINPREP PAP, IMAGED: ATYPICAL SQUAMOUS CELLS OF [...] HPV ANY DIAGNOSIS. POSITIVE HIGH RISK, [795.0] Paolo Becerra MD LAB CYTOLOGY ORDERABLES Final Re sult HISTORICAL TESTING LAB RESULTING AGENCY from Last 3 Months or Most Recently Relevant to Health Maintenance Insurance [facility] Member Subscriber Plan / Payer (Ef fective 2022-Present) Name:LAKISHA STEVENS Relation to Subscriber:Self Name:Lakisha Stevens Payer ID:[id number] Group ID:[id number] Type:Not on file Address: [address] [place] [address] Care Teams Drafter (Cad) Electrical Relationship Specialty Start Date End Date Jimmy Boo MD [address] [place] [address] PCP - General Internal Medicine 11/23/19
--- OUTSIDE RECORDS SUMMARY | 2025-02-12 13:50 | XMS_ITS | Encounter Summary ---
Author Organization [employer] Address [address] [address] [facility] [address] [place] [address] Care Team Providers Care Sewage Plant Supervisor Name Role Phone Jimmy Boo MD Primary Care Provider [phone] Reason for Visit * Reason Comments Med Refill Encounter Details Date Type Department Care Team ([facility] Contact Info) Description 11/03/2023 Refill [facility] CHC ADULT DENTAL [address] [place] [address] Luis Guzman DDS [address] [place] [address] Social History Tobacco Use Types Packs/Day Years [...] Upcoming Encounters Date Type Department Care Team ([facility] st Contact Info) Description 04/01/2025 2:15 PM EST Office Visit [facility] ADULT DENTAL [address] [place] [address] Raza Boo documented as of this encounter Visit Diagnoses Not on filedocumented in this encounter Care Teams Sewage Plant Supervisor Relationship Specialty Start Date End Date Jimmy Boo MD [address] [place] [address] PCP - General Internal Medicine 05/03/13 documented as of this encounter
--- OUTSIDE RECORDS SUMMARY | 2025-02-12 13:50 | XMS_ITS | Encounter Summary ---
Author Organization [employer] Address [address] [facility] [address] [place] [address] Care Team Providers Care Oleo Hasher And Renderer Name Role Phone Jimmy Boo MD Primary Care Provider [phone] Encounter Details Date Type Department Care Team ([facility] Contact Info) Description 08/30/2023 Orders Only [facility] CHC MED & PEDS [address] [place], [place] [phone] ProviderYnes MD Social History Tobacco Use Types [...] [facility] ADULT DENTAL [address] [place] [address] Raza Boo documented as of this encounter [...] on filedocumented in this encounter Care Teams Oleo Hasher And Renderer Relationship Specialty Start Date End Date Jimmy Boo MD [address] [place] [address] PCP - General Internal Medicine 05/03/13 documented as of this encounter
--- OUTSIDE RECORDS SUMMARY | 2025-02-12 13:50 | XMS_ITS | Encounter Summary ---
Author Organization [employer] Address [address] [facility] 7t [place] [address] Care Team Providers Care Sweat Band Sewer Name Role Phone Jimmy Boo MD Primary Care Provider [phone] Encounter Details Date Type Department Care Team ([facility] st Contact Info) Description 04/25/2024 Orders Only [facility] CHC MED & PEDS [address] [place], [place] [phone] Jimmy Boo MD [address] [place] [address] Primary insomnia Social History Tobacco Use Types [...] Visit [facility] ADULT DENTAL [address] [place] [address] Raza Boo documented as of this encounter Visit Diagnoses Diagnosis Primary insomnia Persistent disorder of initiating or maintaining sleep documented in this encounter Care Teams Sweat Band Sewer Relationship Specialty Start Date End Date Jimmy Boo MD [address] [place] [address] PCP - General Internal Medicine 05/03/13 documented as of this encounter
--- OUTSIDE RECORDS SUMMARY | 2025-02-12 13:50 | XMS_ITS | Encounter Summary ---
Author Organization [employer] Address [address] [facility] 7t [place] [address] Care Team Providers Care Wood Last Maker Name Role Phone Jimmy Boo MD Primary Care Provider [phone] Encounter Details Date Type Department Care Team ([facility] st Contact Info) Description 10/24/2023 Orders Only [facility] CHC MED & PEDS [address] [place], [place] [phone] Jimmy Boo MD [address] [place] [address] Herpes zoster without complication (Primary Dx) Social [...] t he electric, gas, oil or water 4-Tell threatened to shut off services in your [...] [facility] ADULT D[facility] [address] [place] [address] Raza Boo documented as of this encounter Procedures Procedure Name Priority Date/Time Associated Diagnosis Comments XR FINGERS 2+ VIEWS RIGHT Routine 11/23/2023 11:55 AM EDT documented in this encounter Results * XR Fingers 2+ Views Right (11/23/2023 11:55 AM EDT) Anatomical Region Laterality Modality Upper Extremities, Fingers Right Radio graphic Imaging 11/23/2023 11:5 5 AM EDT Narrative 11/27/2023 2:15 PM EDT [address] [address] XRay Report Signed Patient: Lakisha Hearn MR#: [id number] : 1965 Acct:[id number] Age/Sex: 58 / F ADM Date: 11/23/23 Loc: [facility] Attending Dr: Jimmy Boo MD Ordering Physician: Jimmy Boo MD Date of Service: 11/23/23 Procedure(s): XR finger RT min 2V Accession Number(s): [id number] cc: Jimmy Boo MD EXAMINATION: XR FINGER, [...] unremarkable. XR/XR finger RT min 2V IMPRESSION: Oboc-qg-filcftel osteoarthritis of the first carpometacarpal joint with degenerative changes slightly progressed compared with February 2019 Electronically signed by: Kuldip Dill MD 11/27/2023 02:13 PM EDT RP Dictated By: Kuldip Dill MD Signed By: <Electronically signed by Kuldip Dill MD in OV> 11/27/23 1413 DD/ 1155 TD/TT: 11/23/23 1205 Online Media Director: STEVE Procedure Note Donotuseinterpreter, Image - 11/27/[address] [address] XRay Report Signed Patient: Lakisha Hearn AMR#: [id number] : 1965Acct:[id number] Age/Sex: 58 / FADM Date: 11/23/23 Loc: [facility] Attending Dr: Jimmy Boo MD Ordering Physician: Jimmy Boo MD Date of Service: 11/23/23 Procedure(s): XR finger RT min 2V Accession Number(s): [id number] cc: Jimmy Boo MD EXAMINATION: XR FINGER, [...] unremarkable. XR/XR finger RT min 2V IMPRESSION: Upxu-as-nfqrzefx osteoarthritis of the first carpometacarpal joint with degenerative changes slightly progressed compared with February 2019 Electronically signed by: Kuldip Dill MD 11/27/2023 02:13 PM EDT RP Dictated By: Kuldip Dill MD Signed By: <Electronically signed by Kuldip Dill MD inOV> 11/27/23 1413 DD/ 1155 TD/TT: 11/23/23 1205 Online Media Director: STEVE Jimmy Boo MD IMG XR PROCEDURES Final Res ult documented in this encounter Visit Diagnoses Diagnosis Herpes zoster without complication- Primary documented in this encounter Care Teams Wood Last Maker Relationship Specialty Start Date End Date Jimmy Boo MD [address] [place] [address] PCP - General Internal Medicine 05/03/13 documented as of this encounter
--- OUTSIDE RECORDS SUMMARY | 2025-02-12 13:50 | XMS_ITS | Encounter Summary ---
Author Organization [employer] Address [address] [facility] 7 [place] [address] Care Team Providers Care Emergency Service Worker Name Role Phone Jimmy Boo MD Primary Care Provider [phone] Encounter Details Date Type Department Care Team ([facility] Contact Info) Description 07/07/2023 Orders Only [facility] MED & PEDS [address] [place], [place] [phone] Jimmy Boo MD [address] [place] [address] Diverticulosis of colon (Primary Dx) Social History [...] Visit [facility] ADULT DENTAL [address] [place] [address] Raza Boo Scheduled Orders Name Type Priority Associated Diagnoses Orde r Schedule Fecal Globin by Immunochemistry Lab Routine Diverticulosis of colon Expected: 07/07/2023 (Approximate), Expires: 07/06/2024 Urinalysis Complete Lab Routine Diverticulosis of colon Expected: 07/07/2023 (Approximate), Expires: 07/06/2024 documented as of this encounter Visit Diagnoses Diagnosis Diverticulosis of colon- Primary Diverticulosis of colon (without mention of hemorrhage) documented in this encounter Care Teams Emergency Service Worker Relationship Specialty Start Date End Date Jimmy Boo MD [address] [place] [address] PCP - General Internal Medicine 05/03/13 documented as of this encounter
--- OUTSIDE RECORDS SUMMARY | 2025-02-12 13:50 | XMS_ITS | Encounter Summary ---
Author Organization [employer] Address [address] [facility] 7 [place] [address] Care Team Providers Care Folder Machine Operator Name Role Phone Jimmy Boo MD Primary Care Provider [phone] Encounter Details Date Type Department Care Team ([facility] Contact Info) Description 08/17/2022 Abstract [facility] MED & PEDS [address] [place], [place] [phone] Jimmy Boo MD [address] [place] [address] Social History Tobacco Use Types Packs/Day Years [...] Upcoming Encounters Date Type Department Care Team ([facility] Contact Info) Description 04/01/2025 2:15 PM EST Office Visit [facility] ADULT DENTAL [address] [place] [address] Raza Boo documented as of this encounter [...] EDT Recommended 5 year follow up ( [facility]) us Historical Provider HEALTH MAINTENANCE Final Result documented in this encounter Visit Diagnoses Not on filedocumented in this encounter Care Teams Folder Machine Operator Relationship Specialty Start Date End Date Jimmy Boo MD [address] [place] [address] PCP - General Internal Medicine 05/03/13 documented as of this encounter
--- OUTSIDE RECORDS SUMMARY | 2025-02-12 13:50 | XMS_ITS | Encounter Summary ---
Author Organization [employer] Address [address] [place] [address] 7 [place] [address] Care Team Providers Care Dining Room Attendant Cafeteria Name Role Phone Jimmy Boo MD Primary Care Provider [phone] Reason for Referral * Imaging (Routine) - Authorized Specialty Diagnoses / Procedures Referred By Lonny harris Referred To Contact Radiology Diagnoses Subcutaneous nodule Chronic pain of right thumb Procedures US SOFT TISSUE Jimmy Boo MD [address] [place] [address] Phone: tel: fax: [address] Phone: tel: fax: Referral ID Status Reason Start Date Expiration Date V isits Requested Visits Authorized [id number] Authorized 01/01/2025 01/01/2026 1 1 * Consultation (Urgent) - Closed Specialty Diagnoses / Procedures Referred By Lonny harris Referred To Contact Obstetrics and Gynecology Diagnoses Subcutaneous nodule Jimmy Boo MD [address] [place] [address] Phone: tel: fax: Zack Gray MD [address] [place] [address] [place] [address] Phone: tel: fax: Referral ID Status Reason Start Date Expiration Date V isits Requested Visits Authorized [id number] Closed Specialty Services Required 12/31/2024 12/31/2025 1 1 Encounter Details Date Type Department Care Team ([facility] st Contact Info) Description 12/31/2024 Orders Only [facility] & [facility] [address] [address] Jimmy Boo MD [address] [place] [address] Subcutaneous nodule (Primary Dx); Chronic pain of [...] [facility] ADULT D[facility]AL [address] [place] [address] Raza Boo Scheduled Orders Name Type Priority [...] documented as of this encounter Care Teams Dining Room Attendant Cafeteria Relationship Specialty Start Date End Date Jimmy Boo MD [address] [place] [address] PCP - General Internal Medicine 05/03/13 documented as of this encounter
--- OUTSIDE RECORDS SUMMARY | 2025-02-12 13:50 | XMS_ITS | Encounter Summary ---
Author Organization [employer] Address [address] [place] [address] 7 [place] [address] Care Team Providers Care Talking Books Library Clerk Name Role Phone Jimmy Boo MD Primary Care Provider [phone] Encounter Details Date Type Department Care Team ([facility] Contact Info) Description 04/13/2023 Abstract [facility] ADULT D[facility]AL [address] [place] [address] Zahira Harris DDS [address] [place], [place] [phone] Social History Tobacco Use Types Packs/Day Years [...] Upcoming Encounters Date Type Department Care Team ([facility] Contact Info) Description 04/01/2025 2:15 PM EST Office Visit [facility] AD[facility] [address] [place] [address] Raza Boo documented as of this encounter Visit Diagnoses Not on filedocumented in this encounter Care Teams Talking Books Library Clerk Relationship Specialty Start Date End Date Jimmy Boo MD [address] [place], [place] [phone] PCP - General Internal Medicine 05/03/13 documented as of this encounter
--- OUTSIDE RECORDS SUMMARY | 2025-02-12 13:50 | XMS_ITS | Encounter Summary ---
Author Organization [employer] Address [address] [facility] 7t h Floor [address] Care Team Providers Care Monotype Setter Name Role Phone Jimmy Boo MD Primary Care Provider [phone] Reason for Visit * Reason Onset Date Comments scripted toothpaste 12/24/2024 Encounter Details Date Type Department Care Team ([facility] Contact Info) Description 12/24/2024 Telephone [facility] ADULT DENTAL [address] [place] [address] Luis Guzman DDS [address] [place] [address] scripted toothpaste Social History Tobacco Use Types [...] Office Visit [facility] ADULT DENTAL [address] [place] [address] Raza Boo documented as of this encounter Visit Diagnoses Not on filedocumented in this encounter Additional Health Concerns Assessment Noted Time PHQ-9 Depression Total Score: 8 06/05/19 25 2:12 PM EST documented as of this encounter Care Teams Monotype Setter Relationship Specialty Start Date End Date Jimmy Boo MD [address] [place] [address] PCP - General Internal Medicine 05/03/13 documented as of this encounter
--- OUTSIDE RECORDS SUMMARY | 2025-02-12 13:50 | XMS_ITS | Encounter Summary ---
Author Organization [employer] Address 75 [facility] 7t [place] [address] Care Team Providers Care Military Source Operations Officer Name Role Phone Jimmy Boo MD Primary Care Provider [phone] Reason for Visit * Reason Onset Date Comments Nurse Triage 07/02/2024 Encounter Details Date Type Department Care Team ([facility] st Contact Info) Description 07/02/2024 Telephone [facility] [address] [place] [address] Jimmy Boo MD [address] [place] [address] Nurse Triage Social History Tobacco Use Types [...] Pt had lumbar puncture on 06/14/24 at [facility] and has had some increased back pain since then. Pt denies redness, swelling at site but, is concerned as to the length of time having pain. ASK apt [facility] today at 320pm. Pt agrees with [...] acuity questions The caller accepted this outcome. [phone] Pt had lumbar procedure on june 14. documented in this encounter Plan of Treatment Upcoming Encounters Date Type Department Care Team ([facility] st Contact Info) Description 04/01/2025 2:15 PM EST Office Visit [facility] ADULT DENTAL [address] [place] [address] Raza Boo documented as of this encounter Visit Diagnoses Not on filedocumented in this encounter Additional Health Concerns Assessment Noted Time PHQ-9 Depression Total Score: 8 06/05/19 25 2:12 PM EST documented as of this encounter Care Teams Military Source Operations Officer Relationship Specialty Start Date End Date Jimmy Boo MD [address] [place] [address] PCP - General Internal Medicine 05/03/13 documented as of this encounter
--- OUTSIDE RECORDS SUMMARY | 2025-02-12 13:50 | XMS_ITS | Encounter Summary ---
Author Organization [employer] Address [address] [facility] [address] 7t [place] [address] Care Team Providers Care Dumper Name Role Phone Jimmy Boo MD Primary Care Provider [phone] Encounter Details Date Type Department Care Team ([facility] st Contact Info) Description 02/11/2025 Orders Only [facility] CH[facility] MED & PEDS [address] [place], [place] [phone] Provider, MD Yens Social History Tobacco Use Types Packs/Day Years [...] Visit [facility] ADULT DENTAL [address] [place] [address] Raza Boo documented as of this encounter Procedures Procedure Name Priority Date/Time Associated Diagnosis Comments MR THORACIC SPINE W AND WO CONTRAST Routine 02/06/2025 8:47 AM EST MR CERVICAL SPINE W AND WO CONTRAST Routine 02/06/2025 8:45 AM EST documented in this encounter Results * MR Thoracic Spine w/ and w/o Contrast (02/06/2025 8:47 AM EST) Anatomical Region Laterality Modality Spine, T-spine Magnetic Resonan ce Historical Provider MD ÁLVAREZ MRI PROCEDURES Final Result * MR Cervical Spine w/ and w/o Contrast (02/06/2025 8:45 AM EST) Anatomical Region Laterality Modality Spine, C-spine Magnetic Resonan ce us Historical Provider MD ÁLVAREZ MRI PROCEDURES Final Result documented in this encounter Visit Diagnoses Not on filedocumented in this encounter Additional Health Concerns Assessment Noted Time PHQ-9 Depression Total Score: 8 06/05/19 25 2:12 PM EST documented as of this encounter Care Teams Dumper Relationship Specialty Start Date End Date Jimmy Boo MD [address] [place] [address] PCP - General Internal Medicine 05/03/13 documented as of this encounter
--- OUTSIDE RECORDS SUMMARY | 2025-02-12 13:50 | XMS_ITS | Encounter Summary ---
Author Organization [employer] Address [address] [place] [address] 7 [place] [address] Care Team Providers Care Technician Automated Equipment Name Role Phone Jimmy Boo MD Primary Care Provider [phone] Encounter Details Date Type Department Care Team ([facility] Contact Info) Description 06/21/2023 Orders Only [facility] MED & PEDS [address] [place], [place] [phone] Jimmy Boo MD [address] [place], [place] [phone] Primary insomnia Social History Tobacco Use Types [...] Department Care Team ([facility] Contact Info) Description 04/01/2025 2:15 PM EST Office Visit [facility] ADULT D[facility] [address] [place], [place] [phone] Raza Boo documented as of this encounter Visit Diagnoses Diagnosis Primary insomnia Persistent disorder of initiating or maintaining sleep documented in this encounter Care Teams Technician Automated Equipment Relationship Specialty Start Date End Date Jimmy Boo MD [address] [place] [address] PCP - General Internal Medicine 05/03/13 documented as of this encounter
--- OUTSIDE RECORDS SUMMARY | 2025-02-12 13:51 | XMS_ITS | Encounter Summary ---
Author Organization [employer] Address [address] [place] [address] 7 [place] [address] Care Team Providers Care Supervisor Electronics Inspection Name Role Phone Jimmy Boo MD Primary Care Provider [phone] Encounter Details Date Type Department Care Team ([facility] Contact Info) Description 03/02/2023 Abstract [facility] ADULT DENTAL [address] [place] [address] Zahira Harris DDS [address] [place], [place] [phone] Social History Tobacco Use Types Packs/Day Years [...] Visit [facility] ADULT DENTAL [address] [place] [address] Raza Boo documented as of this encounter Visit Diagnoses Not on filedocumented in this encounter Care Teams Supervisor Electronics Inspection Relationship Specialty Start Date End Date Jimmy Boo MD [address] [place], [place] [phone] PCP - General Internal Medicine 05/03/13 documented as of this encounter
--- OUTSIDE RECORDS SUMMARY | 2025-02-12 13:51 | XMS_ITS | Encounter Summary ---
Author Organization [employer] Address 75 [facility] 7 [place] [address] Care Team Providers Care Document Control Coordinator Name Role Phone Jimmy Boo MD Primary Care Provider [phone] Reason for Visit * Reason Onset Date Comments Medication Question 06/21/2022 Encounter Details Date Type Department Care Team ([facility] Contact Info) Description 06/21/2022 Telephone [facility] MED & PEDS [address] [place], [place] [phone] Jimmy Boo MD [address] [place], [place] [phone] Medication Question Social History Tobacco Use Types [...] out. Pt requesting Rx be sent to [facility] pharmacy on [facility]. * Telephone Encounter - Sangeetha Glenys - [...] [facility] ADULT D[facility] [address] [place] [address] Raza Boo documented as of this encounter Visit Diagnoses Diagnosis Primary insomnia Persistent disorder of initiating or maintaining sleep SOB (shortness of breath) Shortness of breath documented in this encounter Care Teams Document Control Coordinator Relationship Specialty Start Date End Date Jimmy Boo MD [address] [place] [address] PCP - General Internal Medicine 05/03/13 documented as of this encounter
--- OUTSIDE RECORDS SUMMARY | 2025-02-12 13:51 | XMS_ITS | Encounter Summary ---
Author Organization [employer] Address [address] [place] [address] 7 [place] [address] Care Team Providers Care Plastics Spreading Machine Operator Name Role Phone Jimmy Boo MD Primary Care Provider [phone] Reason for Visit * Reason Comments Med Refill Encounter Details Date Type Department Care Team ([facility] Contact Info) Description 06/22/2022 Refill [facility] PEDS [address] [place], [place] [phone] Jimmy Boo MD [address] [place] [address] Primary insomnia Social History Tobacco Use Types [...] [facility] [address] [place] [address] Raza Boo documented as of this encounter Visit Diagnoses Diagnosis Primary insomnia Persistent disorder of initiating or maintaining sleep documented in this encounter Care Teams Plastics Spreading Machine Operator Relationship Specialty Start Date End Date Jimmy Boo MD [address] [place] [address] PCP - General Internal Medicine 05/03/13 documented as of this encounter
--- OUTSIDE RECORDS SUMMARY | 2025-02-12 13:51 | XMS_ITS | Encounter Summary ---
Author Organization [employer] Address [address] [place] [address] 7 [place] [address] Care Team Providers Care Software Architect Name Role Phone Jimmy Boo MD Primary Care Provider [phone] Reason for Visit * Reason Comments Med Refill Encounter Details Date Type Department Care Team ([facility] Contact Info) Description 06/19/2022 Refill [facility] MED & PEDS [address] [place] [address] Jimmy Boo MD [address] [place] [address] Primary insomnia Social History Tobacco Use Types [...] [facility] [address] [place] [address] Raza Boo documented as of this encounter Visit Diagnoses Diagnosis Primary insomnia Persistent disorder of initiating or maintaining sleep documented in this encounter Care Teams Software Architect Relationship Specialty Start Date End Date Jimmy Boo MD [address] [place] [address] PCP - General Internal Medicine 05/03/13 documented as of this encounter
--- OUTSIDE RECORDS SUMMARY | 2025-02-12 13:51 | XMS_ITS | Clinical Summary ---
Author Organization [employer] Address [address] [place] [address] 7[address] [place] [address] Care Team Providers Care Beach Lifeguard Name Role Phone Jimmy Boo MD Primary Care Provider [phone] Allergies Active Allergy Reactions Criticality Noted Date [...] the morning. 06/24/19 21 Active sodium chloride ([place]) 0.65 % nasal spray Administer 2 sprays [...] 24 Active Sodium Fluoride 1.1 % cream [place] teeth for 2 minutes, morning and night. [...] Encounters Date Type Department Care Team Description 02/11/2025 Orders Only [facility] CHC MED & PEDS [address] [place] [address] Ynes Hernandez MD 02/05/2025 Orders Only GENERIC EXTERNAL DATA DEPARTMENT Provider, Generic External Data 01/25/2025 Refill [facility] MED & PEDS [address] [place] [address] Jimmy Boo MD Primary insomnia 01/11/2025 Orders Only GENERIC EXTERNAL DATA DEPARTMENT Provider, Generic External Data 01/10/2025 Telephone [facility] MED & PEDS [address], [place] [phone] Jimmy Boo MD Nurse Triage 01/01/2025 Results Follow-Up [facility] MEDICINE [address] [place] [phone] Subha Kellogg, YVONNE US Pelvis Limited 12/31/2024 Orders Only [facility] MED & PEDS [address], [place] [phone] Jimmy Boo MD Subcutaneous nodule (Primary Dx); Chronic pain of right thumb 12/28/2024 Orders Only [facility] MED & PEDS [address] [place] [address] Jimmy Boo MD 12/24/2024 Telephone [facility] ADULT DENTAL [address] [place] [phone] Luis Guzman DDLencho scripted toothpaste 12/24/[address] [address] Jimmy Boo MD Primary insomnia 12/19/2024 9:00 AM EDT Office Visit [facility] MED & PEDS [address] [place] [address] Jimmy Boo MD Right hand pain (Primary Dx); Subcutaneous nodule 12/19/2024 Travel 12/12/2024 Patient Outreach [facility] MEDICINE [address] [place] [phone] Jimmy Boo MD Pre-visit Planning (SDOH screening completed on 05/18/24) 11/26/2024 Refill [facility] MED & PEDS [address], [place] [phone] Jimmy Boo MD Primary insomnia from Last [...] 04/01/2025 2:15 PM EST Office Visit [facility] ADULT DENTAL [address] [place] [address] Raza Boo Health Maintenance Due Date Last Done Comments CT Colonography 1965 FIT DNA/Cologuard 1965 FIT 1965 FOBT 1965 Sigmoidoscopy 1965 Hepatitis B Vaccines (1 of 3 - 19+ 3-dose series) 1984 Pneumococcal Vaccine: 50+ Years (2 of 2 - PCV) 11/26/2012 11/27/2011 Zoster Vaccines (2 of 3) 06/18/2016 04/23/2016 Mammogram 01/28/2024 01/27/2023, 01/03, 11/16/2019, Additional history [...] 06/05/2027 06/04/2022, 06/25/2016 Colorectal Cancer Screening 06/05/2027 Cervical Cancer Screening 02/06/2028 HPV/Cotest 02/06/2028 02/05/2025, 01/03, 11/07/2019, Additional history exists Pap Smear 02/06/2028 02/05/2025, 01/03, 11/07/2019 RSV Patients and Patients Aged 60 years [...] WO CONTRAST Routine 02/06/2025 8:45 AM EST PAP SMEAR Routine 02/05/2025 9:13 AM EST CHLAMYDIA/TRICHOMONAS /NEISSERIA GONORRHOEAE, PCR, URINE Routine 02/05/2025 8:45 AM EST HPV DNA, LOW/HIGH RISK Routine 02/05/2025 12:[address] ABDOMEN PELVIS WO CONTRAST [...] ([place] DPH) Routine 11/09/2022 1:51 PM EDT COLONOSCOPY Routine 06/04/2022 from Last 3 Months or Most Recently Relevant to Health Maintenance Results * MR Thoracic Spine w/ and w/o Contrast (02/06/2025 8:47 AM EST) Anatomical Region Laterality Modality Spine, T-spine Magnetic Resonan ce us Historical Provider MD ÁLVAREZ MRI PROCEDURES Final Result * MR Cervical Spine w/ and w/o Contrast (02/06/2025 8:45 AM EST) Anatomical Region Laterality Modality Spine, C-spine Magnetic Resonan ce us Historical Provider MD ÁLVAREZ MRI PROCEDURES Final Result * Pap Smear (02/05/2025 9:13 AM EST) 02/05/2025 9:13 AM EST 02/06/2025 6:18 AM EST Narrative [facility] - 02/08/2025 3:26 PM EST ----- ------- Name: Lakisha Hearn Clinton Age/Sex: 59/F : 1965 Unit#: [id number] Attend Dr: Zack Gray MD Re02/05/25 Status: DEP REF Location: HO.LNP Disch: ----- ------- SPEC : [id number] RECD: 02/06/25 STATUS: KENNETH MACKAY NUM: [id number] ANDREAS: 02/05/[address] [facility] [address]: Zack Gray MD ENTERED: 02/06/25 SP TYPE: Pap Smr OT DR: Jimmy Boo MD ORDERED: Pap Smear Interpretation Satisfactory for evaluation. Negative for intraepithelial lesion or malignancy. Atrophic. HPV High Risk: Negative HPV Genotyping 16: Positive HPV Genotyping 18: Negative Clinical Information LMP:Unknown date Previous PAP test:Unknown date/findings Material Received ThinPrep-Cervical PAP Disclaimer As of January 25, 2024, the technical services to include automated prescreening performed by the ThinPrep Imaging System, PAP screening and HPV testing will be performed at [facility] (CLIA #[id number]), [address] [place] [address]. Testing for HPV was performed using the [employer] Higher One0 system. The presence of HPV in the female genital tract is associated with a number of diseases, including cervical carcinoma. The HPV DNA high risk pool tests for HPV 31, 33, 35, 39, 45, 51, 52, 56, 58, 59, 66 and 68. The testing for HPV 16 and 18 genotypes has also been performed. A positive result indicates detection of nucleic acid sequences from one or more subtypes, whereas a negative result indicates such sequences were not detected. All professional services are performed by [facility] ([address] [place] [address]; ; CLIA #[id number]). The PAP Test is a screening procedure with the inherent possibility of both false negative and false positive results. Results should be interpreted in the context of historic and current clinical findings. Reliability of the PAP Test is enhanced by performing the test on a regular repetitive basis. CONTINUED ON NEXT PAGE ----- ------- Name: Lakisha Hearn Age/Sex: 59/F : 1965 Unit#: [id number] Attend Dr: Zack Gray MD Re02/05/25 Status: DEP REF Location: [facility] Disch: ----- ------- SPEC : [id number] RECD: 02/06/25 STATUS: KENNETH MACKAY NUM: [id number] ANDREAS: 02/05/[address] [facility] [address]: Zack Gray MD ENTERED: 02/06/25 SP TYPE: Pap Smr OTHR DR: Jimmy Boo MD ORDERED: Pap Smear Copies To: Jimmy Boo MD [address] [address] Zack Gray MD [facility] [address] [place] [address] [address] [place] [phone] ----- ------- Signed (signature on file) SALLY Elena ([facility]) 02/08/25 1526 ----- ------- END OF REPORT us Generic External Data Provider LAB CYTOLOGY LUCIA MISHRA Final Result [facility] [address] [place] [address] [phone] * Chlamydia/Trichomonas/Neisseria gonorrhoeae, PCR, Urine (02/05/2025 8:45 AM EST) CT PCR, Urine NOT DETECTED Not Detect. [facility] Comment:A not detected test result does [...] NG PCR, Urine NOT DETECTED Not Detect. [facility] Comment:A not detected test result does [...] ORDERAB LES Final Result Performing Organization Address [facility] Co de Phone Number [facility] [address] [place] [phone] * (ABNORMAL) HPV DNA, Low/High Risk (02/05/2025 12:00 AM EST) HPV High Risk Negative Negative [facility] HPV Genotype 16 Positive(A) Negative [facility] HPV Genotype 18 Negative Negative [facility] Comment:HPV testing performe d at [facility] (CLIA#[id number]), [address] [place] [phone].Testing for HPV was performed using the [employer] ZULE[employer] 6800system. The presence of HPV in the female genital tract isassociated with a number of diseases, including cervicalcarcinoma. The HPV DNA high risk pool tests for HPV 31, 33,35, 39, 45, 51, 52, 56, 58, 59, 66 and 68. The testing forHPV 16 and 18 genotypes has also been performed. A positiveresult indicates detection of nucleic acid sequences fromone or more subtypes, whereas a negative result indicatessuch sequences were not detected. 02/05/2025 02/06/2025 6:1 8 AM EST Generic External Data Provider LAB BLOOD ORDERAB LES Final Result Performing Organization Address [facility] Co de Phone Number [facility] [address] [place] [phone] * CT Abdomen Pelvis w/o Contrast (01/11/2025 4:00 PM EDT) Anatomical Region Laterality Modality Body, Pelvis, Abdomen Computed T omography 01/11/2025 4:00 PM EDT Narrative 01/11/2025 5:10 PM EDT [address] [address] [address] Scan Report Signed Patient: Lakisha Hearn MR#: [id number] : 1965 Acct:[id number] Age/Sex: 59 / F ADM Date: 01/11/25 Loc: HO.ED Attending Dr: Ordering Physician: Ghada Chen Date of Service: 01/11/25 Procedure(s): CT abdomen pelvis wo IV con Accession Number(s): [id number] cc: Jimmy Boo MD; Ghada Chen Report Number: [id number]: Total DLP = 330.00 mGy-cm Reason for [...] 01/11/25 1707 DD/ 1600 TD/TT: 01/11/25 1607 Promotional Marketing Analyst: DREW Procedure Note Donotuseinterpreter, Image - 01/11/[address] [place] [address] [address] Scan Report Signed Patient: Lakisha Hearn AMR#: [id number] : 1965Acct:[id number] Age/Sex: 59 / FADM Date: 01/11/25 Loc: .ED Attending Dr: Ordering Physician: Ghada Chen Date of Service: 01/11/25 Procedure(s): CT abdomen pelvis wo IV con Accession Number(s): [id number] cc: Jimmy Boo MD; Ghada Chen Report Number: [id number]: Total DLP = 330.00 mGy-cm Reason for [...] 01/11/25 1707 DD/ 1600 TD/TT: 01/11/25 1607 Promotional Marketing Analyst: DREW [facility] External Provider IMG CT PROCEDURES Final Result * Urinalysis w/reflex microscopic (01/11/2025 1:55 PM EDT) Color Urine Yellow [facility] Appearance Urine Clear [facility] PH 5.5 5.0 - 9.0 [facility] Glucose Urine UA Negative Negative mg/dL [facility] Urine Blood Negative Negative [facility] Specific [place] - Urine 1.020 1.005 - 1.025 [facility] Urine Protein Negative Neg-Trace mg/dL [facility] Urine Ketones Trace Negative mg/dL [facility] Nitrite Urine Negative Negative [facility] Leukocyte Esterase Urine Negative Negative [facility] 01/11/2025 1:55 PM EDT 01/11/2025 2:00 PM EDT Narrative [facility] - 01/11/2025 2:07 PM EDT [id number], Clean Catch us Generic External Data Provider LAB URINE ORDERAB LES Final Result Performing Organization Address City/State/[facility] Co de Phone Number [facility] [address] [place] [address] [phone] * (ABNORMAL) CBC auto differential (01/11/2025 1:42 PM EDT) [facility] White Blood Count 5.6 4.8 - [...] Result [facility] [address] [place] [address] [phone] * hCG, Total, Quantitative (01/11/2025 1:42 PM EDT) HCG Quantitative <2 mIU/mL [facility] Comment:Weeks post LMP Appro ximate hCG(Last Menstrual Period) Range (mIU/ml)3 - 4 weeks 9 - 1304 - 5 weeks 75 - 2,6005 - 6 weeks 850 - 20,8006 - 7 weeks 4000 - 100,2007 - 12 weeks 11,500 - 289,63484 - 16 weeks 18,300 - 137,70479 - 29 weeks (2nd trimester) 1,400 - 53,77359 - 41 weeks (3rd trimester) 940 - [...] ORDERAB LES Final Result Performing Organization Address [facility] Co de Phone Number [facility] [address] [place] [phone] * Magnesium (01/11/2025 1:42 PM EDT) Magnesium 2.1 1.6 - 2.6 mg/dL [facility] 01/11/2025 1:42 PM EDT 01/11/2025 1:45 PM EDT Generic External Data Provider LAB BLOOD ORDERAB LES Final Result Performing Organization Address [facility] Co de Phone Number [facility] [address] [place] [phone] * Lipase (01/11/2025 1:42 PM EDT) Lipase 24 8 - 78 U/L [facility] 01/11/2025 1:42 PM EDT 01/11/2025 1:45 PM EDT Generic External Data Provider LAB BLOOD ORDERAB LES Final Result Performing Organization Address [facility]/ZIP Co de Phone Number [facility] [address] [place] [address] [phone] * Hepatic Function Panel (01/11/2025 1:42 PM EDT) Pathologist [facility] Bilirubin, Total 0.5 0.0 - 1.0 mg/dL [...] Result [facility] [address] [place] [address] [phone] * (ABNORMAL) Basic Metabolic Panel (01/11/2025 1:42 PM EDT) [facility] Sodium 140 135 - 145 mmol/L [facility] [...] Kidney Disea se: Estimated GFR < 60 mL/min/1.11u3Xplmsp Kidney Disease: Estimated GFR < 15 mL/min/1.73m2 Glucose 91 60 - 115 mg/dL [facility] Calcium 9.7 8.4 - 10.2 mg/dL [facility] 01/11/2025 1:42 PM EDT 01/11/2025 1:45 PM EDT us Generic External Data Provider LAB BLOOD ORDERAB LES Final Result Performing Organization Address City/State/[facility] Co de Phone Number [facility] [address] [place] [phone] * US Pelvis Limited (12/29/2024 3:49 PM EDT) Anatomical Region Laterality Modality Pelvis Ultrasound 12/29/2024 3:49 PM EDT Narrative 12/29/2024 3:50 PM EDT [address] [address] Ultrasound Report Signed Patient: Lakisha Hearn MR#: [id number] : 1965 Acct:[id number] Age/Sex: 59 / F ADM Date: 12/28/24 Loc: .US Attending Dr: Jimmy Boo MD Ordering Physician: Jimmy Boo MD Date of Service: 12/28/24 Procedure(s): US pelvic limited Accession Number(s): [id number] cc: Jimmy Boo MD Reason for Exam: [...] 12/29/24 1550 DD/ 1549 TD/TT: 12/29/24 1549 Promotional Marketing Analyst: Procedure Note Donotuseinterpreter, Image - 12/29/2024 [place] [address] Ultrasound Report Signed Patient: Lakisha Hearn AMR#: [id number] : 1965Acct:[id number] Age/Sex: 59 / FADM Date: 12/28/24 Loc: HO.US Attending Dr: Jimmy Boo MD Ordering Physician: Jimmy Boo MD Date of Service: 12/28/24 Procedure(s): US pelvic limited Accession Number(s): [id number] cc: Jimmy Boo MD Reason for Exam: [...] 12/29/24 1550 DD/ 1549 TD/TT: 12/29/24 1549 Promotional Marketing Analyst: Jimmy Boo MD IMG US PROCEDURES Edited Re sult - Final * XR Hand 3+ Views Right (12/19/2024 10:14 AM EDT) Anatomical Region Laterality Modality Upper Extremities, Hand Right Radiogra phic Imaging 12/19/2024 10:1 4 AM EDT Narrative 12/19/2024 10:24 AM EDT [place] [address] XRay Report Signed Patient: Lakisha Hearn MR#: [id number] : 1965 Acct:[id number] Age/Sex: 59 / F ADM Date: 12/19/24 Loc: HO.KING Attending Dr: Jimmy Boo MD Ordering Physician: Jimmy Boo MD Date of Service: 12/19/24 Procedure(s): XR hand RT min 3V Accession Number(s): [id number] cc: Jimmy Boo MD Reason for Exam: [...] 12/19/24 1021 DD/ 1014 TD/TT: 12/19/24 1017 Promotional Marketing Analyst: Procedure Note Donotuseinterpreter, Image - 12/19/[address] [address] XRay Report Signed Patient: Lakisha Hearn AMR#: [id number] : 1965Acct:[id number] Age/Sex: 59 / FADM Date: 12/19/24 Loc: HO.XRAY Attending Dr: Jimmy Boo MD Ordering Physician: Jimmy Boo MD Date of Service: 12/19/24 Procedure(s): XR hand RT min 3V Accession Number(s): [id number] cc: Jimmy Boo MD Reason for Exam: [...] 12/19/24 1021 DD/ 1014 TD/TT: 12/19/24 1017 Promotional Marketing Analyst: us Jimmy Boo MD IMG XR PROCEDURES Edited Re sult - Final * Mammography (01/27/2023) Mammogram negative Anatomical Region Laterality Modality Other Narrative 01/27/2023 Bi rads -negative us Jimmy Boo MD HEALTH MAINTENANCE Final Re sult * Hepatitis C Antibody Reflex (11/09/2022 1:51 PM EDT) Pathologist [facility] Hepatitis C Antibody Nonreactive Nonreactive [facility] Comment:Antibodies to HCV no t detected; does not exclude early acuteHCV infection. 11/09/2022 1:51 PM EDT 11/09/2022 5:49 PM EDT [facility] BLOOD ORDERABLES Rach l Result Performing Organization Address [facility]/ZIP Co de Phone Number [facility] [address] [place] [address] [phone] * HIV Ab/Ag ([facility]) (11/09/2022 1:51 PM EDT) [facility] HIV AB/AG Nonreactive Nonreactive [facility] Comment:HIV-1 p24 Ag and/or HIV-1/HIV-2 Ab not detected.A test result that is nonreactive does not exclude thepossibility of exposure to or infection with HIV-1 and/orHIV-2. Nonreactive results in this assay for individualswith prior exposure to HIV-1 and/or HIV-2 may be due toantigen and antibody levels that are below the limit ofdetection of this assay.The Askew Mosaic Technician HIV Ag/Ab Combo assay result andsupplemental assay results should be interpreted inconjunction with the patient's clinical presentation,history and other laboratory results. If the results areinconsistent with clinical evidence, additional testing issuggested to confirm the result. 11/09/2022 1:51 PM EDT 11/09/2022 5:49 PM EDT [facility] BLOOD ORDERABLES Rach l Result Performing Organization Address [facility]/ZIP Co de Phone Number [facility] [address] [place] [address] [phone] * Hm Colonoscopy (06/04/2022) Colonoscopy Normal Normal 06/04/2022 Jacey Donnelly - 06/04/2022 2:23 PM EST Recommended 5 year follow up due to family hx of cancer ( see scanned report ) us Historical Provider HEALTH MAINTENANCE Final Result from Last 3 Months or Most Recently Relevant to Health Maintenance Insurance [facility] [address] [id number] [facility] Care Teams Beach Lifeguard Relationship Specialty Start Date End Date Jimmy Boo MD [address] [place] [phone] PCP - General Internal Medicine 05/03/13
--- OUTSIDE RECORDS SUMMARY | 2025-02-12 13:51 | XMS_ITS | Encounter Summary ---
Author Organization [facility] Address [address] [place] [address] 7 [place] [address] Care Team Providers Care Radio Despatcher Name Role Phone Jimmy Boo MD Primary Care Provider [phone] Reason for Visit * Reason Onset Date Comments rct appt 02/17/2023 Encounter Details Date Type Department Care Team ([facility] Contact Info) Description 02/17/2023 Telephone [facility] AD[facility] [address] [place] [address] Tricia Davis DDS rct appt Social History [...] [facility] Contact Info) Description 04/01/2025 2:15 PM EST Office Visit [facility] AD[facility] [address] [place] [address] Raza Boo documented as of this encounter Visit Diagnoses Not on filedocumented in this encounter Care Teams Radio Despatcher Relationship Specialty Start Date End Date Jimmy Boo MD [address] [place] [phone] PCP - General Internal Medicine 05/03/13 documented as of this encounter
--- OUTSIDE RECORDS SUMMARY | 2025-02-12 13:51 | XMS_ITS | Encounter Summary ---
Author Organization [employer] Address [address] [place] [address] [address] [place] [address] Care Team Providers Care Assistant Project Manager Name Role Phone Jimmy Boo MD Primary Care Provider [phone] Reason for Visit * Reason Comments Med Refill Encounter Details Date Type Department Care Team ([facility] Contact Info) Description 06/23/2022 Refill [facility] & PEDS [address] [place] [address] Jimmy Boo MD [address] [place] [address] Primary insomnia Social History Tobacco Use Types [...] Upcoming Encounters Date Type Department Care Team ([facility] Contact Info) Description 04/01/2025 2:15 PM EST Office Visit [facility] AD[facility] [address] [place] [address] Raza Boo documented as of this encounter Visit Diagnoses Diagnosis Primary insomnia Persistent disorder of initiating or maintaining sleep documented in this encounter Care Teams Assistant Project Manager Relationship Specialty Start Date End Date Jimmy Boo MD [address] [place] [phone] PCP - General Internal Medicine 05/03/13 documented as of this encounter
--- OUTSIDE RECORDS SUMMARY | 2025-02-12 13:51 | XMS_ITS | Encounter Summary ---
Author Organization [employer] Address [address] [facility] [address] [place] [address] Care Team Providers Care Family Counselor Name Role Phone Jimmy Boo MD Primary Care Provider [phone] Reason for Visit * Reason Onset Date Comments case back from lab?? 10/19/2022 Encounter Details Date Type Department Care Team ([facility] Contact Info) Description 10/19/2022 Telephone [facility]ULT [facility] [address] [place] [address] Luis Guzman, DDS [address] [place] [address] case back from lab?? Social History Tobacco [...] Upcoming Encounters Date Type Department Care Team ([facility] Contact Info) Description 04/01/2025 2:15 PM EST Office Visit [facility] ADULT DENTAL [address] [place] [address] Raza Boo documented as of this encounter Visit Diagnoses Not on filedocumented in this encounter Care Teams Family Counselor Relationship Specialty Start Date End Date Jimmy Boo MD [address] [place] [address] PCP - General Internal Medicine 05/03/13 documented as of this encounter
--- OUTSIDE RECORDS SUMMARY | 2025-02-12 13:51 | XMS_ITS | Patient Health Record ---
Author Organization [facility] Address [address] [place] [address] Care Team Providers Care Band Machine Operator Name Role Phone Jimmy Boo M.D. Primary Care Provider Un available Keyshawn Lopez Unavailable [phone] Allergies Allergen (clinical drug ingredient) Drug/Non Drug [...] Problem Screening for malignant neoplasm of colon (267983545) Encounter for screening for malignant neoplasm of colon (Z12.11) Active confirmed Problem Screening for malignant neoplasm of rectum (717915506) Encounter for screening for malignant neoplasm of rectum (Z12.12) Active confirmed Problem Family History of Cancer of Colon (Situation) (892788164) Family history of colon cancer (Z80.0) Active confirmed Problem Constipation (01531879) Constipation, unspecified constipation type (K59.00) Active confirmed Problem Diverticulosis of colon (325976454) Diverticulosis of colon (K57.30) Active confirmed Plan Of Treatment Future Test Test Name Order Date COLONOSCOPY 12/19/2015 COLONOSCOPY 03/17/2022 Insurance Providers Payer Name Payer Address Payer Phone Subscriber Number Group Number Insured Name Patient Relationship to Insured Coverage Start Date Coverage End Date [facility] [address] [place] [address] [id number] PATRICIA DOOLEY Self - patient is the insured Medical (General) History Medical History History ICD Code Epilepsy--off seizure meds Multiple sclerosis Vertigo Denies ND,DM,CVA,Lung disease,renal dise ase Hx of breast cancer 2011--ri ght--lumpectomy, XRT , chemo--sees Dr. Samuel at [facility] x 3 Neg. colonoscopy in 2005, 06/2011, and 2016 Surgical History Surgery Date(Month/Year) Urethral diverticulum Right arm surgery BTL Exploratory laparoscopy Ear surgery for tubes Shoulder surgery--right shoulder 09/2015 Right breast cancer --lumpectomy Bone removed from left thumb Carpal tunnel on the left Cystoscopy 02/2022
== END 2025-02-12 12:26 | disposition home or self-care (01) ==
LOC: HO.HWS 11:46
PROVIDERS: PCP Internal Medicine; Visit Provider Obstetrics & Gynecology
DX: R87.810 Cervical high risk human papillomavirus (HPV) DNA test positive (principal)
CPT/HCPCS: 57454

== ENCOUNTER 2025-02-25 09:25 | Outpatient (REF) | payer OTHER, SELFPAY ==
--- NOTE | ~2025-02-25 | MR_ITS ---
EXAMINATION: MR PELVIS WITHOUT THEN WITH IV CONTRAST HISTORY: R10.2 - Pelvic and perineal pain. TECHNIQUE: Axial T1, fat-suppressed T1, and fat suppressed T2, and sagittal and coronal T2-weighted MR images of the pelvis were obtained. Subsequently, sagittal and axial fat-suppressed T1-weighted images were obtained after the intravenous administration of 5 mL Gadavist. COMPARISON: Correlation is made with a CT of the pelvis without contrast dated 01/11/2025. FINDINGS: The uterus measures approximately 7.3 x 2.5 x 3.8 cm. No fibroids are identified. The junctional zone is not thickened. The cervical stroma is preserved. The endometrium is unremarkable. The ovaries are not identified. There is a small amount of free fluid in the right adnexa. Multiple prominent vessels are noted in the adnexal regions. The urinary bladder is unremarkable. There is no pelvic lymphadenopathy. The visualized bones demonstrate normal marrow signal intensity. MR/MR pelvis wo/w con IMPRESSION: The ovaries are not identified. There are nonspecific prominent vessels in both adnexal regions. Electronically signed by: Keyshawn Alcantar MD 02/25/2025 10:40 AM [facility]
--- OUTSIDE RECORDS SUMMARY | 2025-02-25 10:48 | XMS_ITS | Encounter Summary ---
Author Organization [employer] Address [address] [facility] 7 [place] [address] Care Team Providers Care Medical Instrument Cable Fabricator Name Role Phone Jimmy Boo MD Primary Care Provider [phone]- [phone] Reason for Visit * Reason Comments Med Refill Encounter Details Date Type Department Care Team ([facility] Contact Info) Description 04/22/2022 Refill [facility] [address] [place], [place] [phone] Jimmy Boo MD 505 [place], [place] [phone] SOB (shortness of breath) Social History Tobacco [...] Encounters Date Type Department Care Team ([facility] Contact Info) Description 04/01/2025 2:15 PM EST Office Visit [facility] 505 [place] [address] Raza Boo documented as of this encounter Visit Diagnoses Diagnosis SOB (shortness of breath) Shortness of breath documented in this encounter Care Teams Medical Instrument Cable Fabricator Relationship Specialty Start Date End Date Jimmy Boo MD [address] [place] [address] PCP - General Internal Medicine 05/03/13 documented as of this encounter
--- OUTSIDE RECORDS SUMMARY | 2025-02-25 10:48 | XMS_ITS | Encounter Summary ---
Author Organization [employer] Address [address] [facility] 7t [place] [address] Care Team Providers Care Gate Operator Name Role Phone Jimmy Boo MD Primary Care Provider [phone] Encounter Details Date Type Department Care Team ([facility] Contact Info) Description 11/28/2023 Orders Only [facility] MED & PEDS 505 [place], [place] [phone] Jimmy Boo MD 505 [place] [address] Social History Tobacco Use Types Packs/Day Years [...] [facility] ADULT D[facility] 505 [place] [address] Raza Boo documented as of this encounter Visit Diagnoses Not on filedocumented in this encounter Care Teams Gate Operator Relationship Specialty Start Date End Date Jimmy Boo MD 505 [place] [address] PCP - General Internal Medicine 05/03/13 documented as of this encounter
--- OUTSIDE RECORDS SUMMARY | 2025-02-25 10:48 | XMS_ITS | Encounter Summary ---
Author Organization [employer] Address [address] [facility] 7t [place] [address] Care Team Providers Care Pediatric Acute Care Unit Nurse Name Role Phone Jimmy Boo MD Primary Care Provider [phone] Reason for Visit * Reason Comments Med Refill Encounter Details Date Type Department Care Team ([facility] st Contact Info) Description 12/29/2023 Refill [facility] [address] [place] [address] Jimmy Boo MD 505 [place] [address] Primary insomnia Social History Tobacco Use Types [...] t he electric, gas, oil or water [employer] threatened to shut off services in your [...] 2:15 PM EST Office Visit [facility] ADULT D[facility] 505 [place] [address] Raza Boo documented as of this encounter Visit Diagnoses Diagnosis Primary insomnia Persistent disorder of initiating or maintaining sleep documented in this encounter Care Teams Pediatric Acute Care Unit Nurse Relationship Specialty Start Date End Date Jimmy Boo MD 505 [place] [address] PCP - General Internal Medicine 05/03/13 documented as of this encounter
--- OUTSIDE RECORDS SUMMARY | 2025-02-25 10:48 | XMS_ITS | Encounter Summary ---
Author Organization [employer] Address [address] [facility] 7t [place] [address] Care Team Providers Care Osteology Teacher Name Role Phone Jimmy Boo MD Primary Care Provider [phone] Encounter Details Date Type Department Care Team ([facility] st Contact Info) Description 10/24/2023 Orders Only [facility] MED & PEDS 505 [place], [place] [phone] Jimmy Boo MD 505 [place] [address] Herpes zoster without complication (Primary Dx) Social [...] t he electric, gas, oil or water [employer] threatened to shut off services in your [...] Visit [facility] ADULT DENT[facility] [address] [place] [address] Raza Boo documented as of this encounter Procedures Procedure Name Priority Date/Time Associated Diagnosis Comments XR FINGERS 2+ VIEWS RIGHT Routine 11/23/2023 11:55 AM EDT documented in this encounter Results * XR Fingers 2+ Views Right (11/23/2023 11:55 AM EDT) Anatomical Region Laterality Modality Upper Extremities, Fingers Right Radio graphic Imaging 11/23/2023 11:5 5 AM EDT Narrative 11/27/2023 2:15 PM EDT [address] [address] XRay Report Signed Patient: Lakisha Hearn MR#: [id number] : 1965 Acct:[id number] Age/Sex: 58 / F ADM Date: 11/23/23 Loc: [facility] Attending Dr: Jimmy Boo MD Ordering Physician: Jimmy Boo MD Date of Service: 11/23/23 Procedure(s): XR finger RT min 2V Accession Number(s): [id number] cc: Jimmy Boo MD EXAMINATION: XR FINGER, [...] unremarkable. XR/XR finger RT min 2V IMPRESSION: Tvrv-qb-mypeujfl osteoarthritis of the first carpometacarpal joint with degenerative changes slightly progressed compared with February 2019 Electronically signed by: Kuldip Dill MD 11/27/2023 02:13 PM EDT RP Dictated By: Kuldip Dill MD Signed By: <Electronically signed by Kuldip Dill MD in OV> 11/27/23 1413 DD/ 1155 TD/TT: 11/23/23 1205 Line Out Man: STEVE Procedure Note Donotuseinterpreter, Image - 11/27/[address] [address] XRay Report Signed Patient: Lakisha Hearn AMR#: [id number] : 1965Acct:[id number] Age/Sex: 58 / FADM Date: 11/23/23 Loc: [facility] Attending Dr: Jimmy Boo MD Ordering Physician: Jimmy Boo MD Date of Service: 11/23/23 Procedure(s): XR finger RT min 2V Accession Number(s): [id number] cc: Jimmy Boo MD EXAMINATION: XR FINGER, [...] unremarkable. XR/XR finger RT min 2V IMPRESSION: Irhv-yg-oouuyrqw osteoarthritis of the first carpometacarpal joint with degenerative changes slightly progressed compared with February 2019 Electronically signed by: Kuldip Dill MD 11/27/2023 02:13 PM EDT RP Dictated By: Kuldip Dill MD Signed By: <Electronically signed by Kuldip Dill MD inOV> 11/27/23 1413 DD/ 1155 TD/TT: 11/23/23 1205 Line Out Man: STEVE Jimmy Boo MD IMG XR PROCEDURES Final Res ult documented in this encounter Visit Diagnoses Diagnosis Herpes zoster without complication- Primary documented in this encounter Care Teams Osteology Teacher Relationship Specialty Start Date End Date Jimmy Boo MD [address] [place] [address] PCP - General Internal Medicine 05/03/13 documented as of this encounter
--- OUTSIDE RECORDS SUMMARY | 2025-02-25 10:48 | XMS_ITS | Encounter Summary ---
Author Organization [employer] Address [address] [facility] 7t [place] [address] Care Team Providers Care High Pressure Cleaner Name Role Phone Jimmy Boo MD Primary Care Provider [phone] Reason for Visit * Reason Onset Date Comments Nurse Triage 10/24/2023 Encounter Details Date Type Department Care Team ([facility] st Contact Info) Description 10/24/2023 Telephone [facility] MED & PEDS 505 [place], [place] [phone] Jimmy Boo MD [address] [place] [address] Nurse Triage Social History Tobacco Use Types [...] past 12 months, has t he electric, [employer], oil or water [employer] threatened to shut off services in your [...] PCP. Please see notes, Please contact at [phone] * Telephone Encounter - Diane Garcia RN [...] a video call tomorrow when PCP opens [facility] schedule 10/25/23. Pt. Would prefer [...] caller accepted this outcome Contact pt at [phone] documented in this encounter Plan of Treatment Upcoming Encounters Date Type Department Care Team (Late st Contact Info) Description 04/01/2025 2:15 PM EST Office Visit [facility] AD[facility] 505 [place] [address] Raza Boo documented as of this encounter Visit Diagnoses Diagnosis Primary insomnia Persistent disorder of initiating or maintaining sleep documented in this encounter Care Teams High Pressure Cleaner Relationship Specialty Start Date End Date Jimmy Boo MD [address] [place] [address] PCP - General Internal Medicine 05/03/13 documented as of this encounter
--- OUTSIDE RECORDS SUMMARY | 2025-02-25 10:48 | XMS_ITS | Encounter Summary ---
Author Organization [employer] Address [address] [facility] [address] 7t [place] [address] Care Team Providers Care Cut In Station Operator Name Role Phone Jimmy Boo MD Primary Care Provider [phone] Reason for Visit * Reason Comments Med Refill Encounter Details Date Type Department Care Team ([facility] Contact Info) Description 12/02/2023 Refill [facility] ADULT D[facility]AL [address] [place] [address] Luis Guzman DDS [address] [place] [address] Social History Tobacco Use Types Packs/Day Years [...] Upcoming Encounters Date Type Department Care Team ([facility] st Contact Info) Description 04/01/2025 2:15 PM EST Office Visit [facility] ADULT DENT[facility] 505 [place] [address] Raza Boo documented as of this encounter Visit Diagnoses Not on filedocumented in this encounter Care Teams Cut In Station Operator Relationship Specialty Start Date End Date Jimmy Boo MD 505 [place] [address] PCP - General Internal Medicine 05/03/13 documented as of this encounter
--- OUTSIDE RECORDS SUMMARY | 2025-02-25 10:48 | XMS_ITS | Encounter Summary ---
Author Organization [employer] Address [address] [facility] 7t [place] [address] Care Team Providers Care Rink Rat Name Role Phone Jimmy Boo MD Primary Care Provider [phone] Reason for Visit * Reason Onset Date Comments Nurse Triage 07/02/2024 Encounter Details Date Type Department Care Team ([facility] st Contact Info) Description 07/02/2024 Telephone [facility] 230 [place] [address] Jimmy Boo MD [address] [place] [address] Nurse Triage Social History Tobacco Use Types [...] lumbar puncture on 06/14/24 at [facility] and has had some increased back pain since then. Pt denies redness, swelling at site but, is concerned as to the length of time having pain. ASK apt [facility] today at 320pm. Pt agrees with [...] acuity questions The caller accepted this outcome. [phone] Pt had lumbar procedure on june 14. documented in this encounter Plan of Treatment Upcoming Encounters Date Type Department Care Team ([facility] st Contact Info) Description 04/01/2025 2:15 PM EST Office Visit [facility] ADULT [facility] [address] [place] [address] Raza Boo documented as of this encounter Visit Diagnoses Not on filedocumented in this encounter Additional Health Concerns Assessment Noted Time PHQ-9 Depression Total Score: 8 06/05/19 25 2:12 PM EST documented as of this encounter Care Teams Rink Rat Relationship Specialty Start Date End Date Jimmy Boo MD 505 [place] [address] PCP - General Internal Medicine 05/03/13 documented as of this encounter
--- OUTSIDE RECORDS SUMMARY | 2025-02-25 10:48 | XMS_ITS | Encounter Summary ---
Author Organization [employer] [facility] Address [address] [facility] 7 [place] [address] Care Team Providers Care Generation Technologist Name Role Phone Jimmy Boo MD Primary Care Provider [phone]- [phone] Encounter Details Date Type Department Care Team (Latest Contact Info) Description 03/14/2020 Abstract [facility] CONVERSIONS Dental, Provider, DDS Social [...] [facility] ADULT DENT[facility] [address] [place] [address] Raza Boo documented as of this encounter Visit Diagnoses Not on filedocumented in this encounter Care Teams Generation Technologist Relationship Specialty Start Date End Date Jimmy Boo MD 505 [place] [address] PCP - General Internal Medicine 05/03/13 documented as of this encounter
--- OUTSIDE RECORDS SUMMARY | 2025-02-25 10:48 | XMS_ITS | Encounter Summary ---
Author Organization [email or web address] Address [address] [facility] 7t [place] [address] Care Team Providers Care Network Announcer Name Role Phone Jimmy Boo MD Primary Care Provider [phone]- [phone] Reason for Visit * Reason Comments Med Refill Encounter Details Date Type Department Care Team ([facility] Contact Info) Description 03/16/2022 Refill [facility] 230 [place] [address] Jimmy Boo MD 505 [place], [place] [phone] Insomnia, unspecified Social History Tobacco Use Types [...] Upcoming Encounters Date Type Department Care Team ([facility] Contact Info) Description 04/01/2025 2:15 PM EST Office Visit [facility] ADULT DENTAL 505 [place] [address] Raza Boo documented as of this encounter Visit Diagnoses Diagnosis Insomnia, unspecified documented in this encounter Care Teams Network Announcer Relationship Specialty Start Date End Date Jimmy Boo MD [address] [place] [address] PCP - General Internal Medicine 05/03/13 documented as of this encounter
--- OUTSIDE RECORDS SUMMARY | 2025-02-25 10:48 | XMS_ITS | Encounter Summary ---
Author Organization [email or web address] Address 75 [facility] 7 [place] [address] Care Team Providers Care Housing Officer Name Role Phone Jimmy Boo MD Primary Care Provider +[phone]- [phone] Encounter Details Date Type Department Care Team (Latest Contact Info) Description 08/16/2018 Abstract [facility] CONVERSIONS Dental, Provider, DDS Social History [...] [facility] ADULT DENTAL [address] [place] [address] Raza Boo documented as of this encounter Visit Diagnoses Not on filedocumented in this encounter Care Teams Housing Officer Relationship Specialty Start Date End Date Jimmy Boo MD 505 [place] [address] PCP - General Internal Medicine 05/03/13 documented as of this encounter
--- OUTSIDE RECORDS SUMMARY | 2025-02-25 10:48 | XMS_ITS | Encounter Summary ---
Author Organization [employer] Address [address] [facility] 7t [place] [address] Care Team Providers Care Manager Enterprise Name Role Phone Jimmy Boo MD Primary Care Provider [phone] Encounter Details Date Type Department Care Team ([facility] st Contact Info) Description 04/25/2024 Orders Only [facility] CH[facility] MED & PEDS [address] [place], [place] [phone] Jimmy Boo MD [address] [place] [address] Primary insomnia Social History Tobacco Use Types [...] [facility] ADULT DENT[facility] 505 [place] [address] Raza oBo documented as of this encounter Visit Diagnoses Diagnosis Primary insomnia Persistent disorder of initiating or maintaining sleep documented in this encounter Care Teams Manager Enterprise Relationship Specialty Start Date End Date Jimmy Boo MD [address] [place] [address] PCP - General Internal Medicine 05/03/13 documented as of this encounter
--- OUTSIDE RECORDS SUMMARY | 2025-02-25 10:48 | XMS_ITS | Encounter Summary ---
Author Organization [employer] Address [address] [facility] [address] 7t [place] [address] Care Team Providers Care Textile Colorist Dyer Name Role Phone Jimmy Boo MD Primary Care Provider [phone] Reason for Visit * Reason Comments Med Refill Encounter Details Date Type Department Care Team ([facility] Contact Info) Description 11/03/2023 Refill [facility] ADULT DENTAL [address] [place] [address] Luis Guzman DDS [address] [place] [address] Social History Tobacco Use Types Packs/Day Years [...] Upcoming Encounters Date Type Department Care Team ([facility] st Contact Info) Description 04/01/2025 2:15 PM EST Office Visit [facility] ADULT DENTAL 505 [place] [address] Raza Boo documented as of this encounter Visit Diagnoses Not on filedocumented in this encounter Care Teams Textile Colorist Dyer Relationship Specialty Start Date End Date Jimmy Boo MD 505 [place] [address] PCP - General Internal Medicine 05/03/13 documented as of this encounter
--- OUTSIDE RECORDS SUMMARY | 2025-02-25 10:48 | XMS_ITS | Encounter Summary ---
Author Organization [employer] Address [address] [facility] 7t [place] [address] Care Team Providers Care Pill Coater Name Role Phone Jimmy Boo MD Primary Care Provider [phone] Reason for Visit * Reason Comments Med Refill Encounter Details Date Type Department Care Team ([facility] st Contact Info) Description 12/28/2023 Refill [facility] MEDICINE 230 [place] [address] Jimmy Boo MD [address] [place] [address] Primary insomnia Social History Tobacco Use Types [...] t he electric, gas, oil or water [employer] threatened to shut off services in your [...] [facility] ADULT DENTAL 505 [place] [address] Raza Boo documented as of this encounter Visit Diagnoses Diagnosis Primary insomnia Persistent disorder of initiating or maintaining sleep documented in this encounter Care Teams Pill Coater Relationship Specialty Start Date End Date Jimmy Boo MD 505 [place] [address] PCP - General Internal Medicine 05/03/13 documented as of this encounter
--- OUTSIDE RECORDS SUMMARY | 2025-02-25 10:49 | XMS_ITS | Encounter Summary ---
Author Organization [employer] Address [address] [place] [address] 7 [place] [address] Care Team Providers Care Coiled Coil Inspector Name Role Phone Jimmy Boo MD Primary Care Provider [phone] Reason for Visit * Reason Comments Med Refill Encounter Details Date Type Department Care Team ([facility] Contact Info) Description 06/24/2022 Refill [facility] MED & PEDS [address] [place] [address] Jimmy Boo MD [address] [place] [address] Primary insomnia Social History Tobacco Use Types [...] Upcoming Encounters Date Type Department Care Team ([facility] Contact Info) Description 04/01/2025 2:15 PM EST Office Visit [facility] ADULT DENTAL 505 [place] [address] Raza Boo documented as of this encounter Visit Diagnoses Diagnosis Primary insomnia Persistent disorder of initiating or maintaining sleep documented in this encounter Care Teams Coiled Coil Inspector Relationship Specialty Start Date End Date Jimmy Boo MD [address] [place] [address] PCP - General Internal Medicine 05/03/13 documented as of this encounter
--- OUTSIDE RECORDS SUMMARY | 2025-02-25 10:49 | XMS_ITS | Encounter Summary ---
Author Organization [employer] Address [address] [facility] 7t [place] [address] Care Team Providers Care House Piping Inspector Name Role Phone Jimmy Boo MD Primary Care Provider [phone] Reason for Visit * Reason Onset Date Comments Dr. Guzman refill Sodium Flouride 5000 cream too thpaste 07/12/2024 Encounter Details Date Type Department Care Team ([facility] Contact Info) Description 07/12/2024 Telephone [facility] ADULT [facility] [address] [place] [address] Luis Guzman DDS [address] [place] [address] Dr. Guzman refill Sodium Flouride 5000 cream [...] [facility] [address] [place] [address] Raza Boo documented as of this encounter Visit Diagnoses Not on filedocumented in this encounter Additional Health Concerns Assessment Noted Time PHQ-9 Depression Total Score: 8 06/05/19 25 2:12 PM EST documented as of this encounter Care Teams House Piping Inspector Relationship Specialty Start Date End Date Jimmy Boo MD [address] [place] [address] PCP - General Internal Medicine 05/03/13 documented as of this encounter
--- OUTSIDE RECORDS SUMMARY | 2025-02-25 10:49 | XMS_ITS | Encounter Summary ---
Author Organization [employer] Address [address] [place] [address] 7 [place] [address] Care Team Providers Care Vegetable Ii Farmworker Name Role Phone Jimmy Boo MD Primary Care Provider [phone] Reason for Visit * Reason Comments Med Refill Encounter Details Date Type Department Care Team ([facility] Contact Info) Description 06/22/2022 Refill [facility] MED & PEDS 505 [place], [place] [phone] Jimmy Boo MD 505 [place] [address] Primary insomnia Social History Tobacco Use Types [...] Upcoming Encounters Date Type Department Care Team ([facility] Contact Info) Description 04/01/2025 2:15 PM EST Office Visit [facility] ADULT DENTAL [address] [place] [address] Raza Boo documented as of this encounter Visit Diagnoses Diagnosis Primary insomnia Persistent disorder of initiating or maintaining sleep documented in this encounter Care Teams Vegetable Ii Farmworker Relationship Specialty Start Date End Date Jimmy Boo MD [address] [place] [address] PCP - General Internal Medicine 05/03/13 documented as of this encounter
--- OUTSIDE RECORDS SUMMARY | 2025-02-25 10:49 | XMS_ITS | Encounter Summary ---
Author Organization [employer] Address [address] [facility] [address] 7t [place] [address] Care Team Providers Care Healthcare Translator Name Role Phone Jimmy Boo MD Primary Care Provider [phone] Reason for Visit * Reason Comments Med Refill Encounter Details Date Type Department Care Team ([facility] Contact Info) Description 07/27/2024 Refill [facility] CHC ADULT DENTAL [address] [place] [address] Luis Guzman DDS [address] [place] [address] Social History Tobacco Use Types Packs/Day Years [...] [facility] [address] [place] [address] Raza Boo documented as of this encounter Visit Diagnoses Not on filedocumented in this encounter Additional Health Concerns Assessment Noted Time PHQ-9 Depression Total Score: 8 06/05/19 25 2:12 PM EST documented as of this encounter Care Teams Healthcare Translator Relationship Specialty Start Date End Date Jimmy Boo MD [address] [place] [address] PCP - General Internal Medicine 05/03/13 documented as of this encounter
--- OUTSIDE RECORDS SUMMARY | 2025-02-25 10:49 | XMS_ITS | Encounter Summary ---
Author Organization [employer] Address 75 [facility] 7t [place] [address] Care Team Providers Care Cigar Brander Name Role Phone Jimmy Boo MD Primary Care Provider [phone] Reason for Visit * Reason Onset Date Comments Med Refill 07/13/2023 Encounter Details Date Type Department Care Team (Late Contact Info) Description 07/13/2023 Refill [facility] CHC ADULT DENTAL [address] [place] [address] Luis Guzman DDS [address] [place] [address] Social History Tobacco Use Types Packs/Day Years [...] Visit [facility] ADULT DENTAL [address] [place] [address] Raza Boo documented as of this encounter Visit Diagnoses Not on filedocumented in this encounter Care Teams Cigar Brander Relationship Specialty Start Date End Date Jimmy Boo MD [address] [place] [address] PCP - General Internal Medicine 05/03/13 documented as of this encounter
--- OUTSIDE RECORDS SUMMARY | 2025-02-25 10:49 | XMS_ITS | Encounter Summary ---
Author Organization [employer] Address [address] [facility] 7t [place] [address] Care Team Providers Care Software Educator Name Role Phone Jimmy Boo MD Primary Care Provider [phone] Reason for Visit * Reason Onset Date Comments scripted toothpaste 12/24/2024 Encounter Details Date Type Department Care Team ([facility] Contact Info) Description 12/24/2024 Telephone [facility] ADULT DENTAL [address] [place] [address] Luis Guzman DDS [address] [place] [address] scripted toothpaste Social History Tobacco Use Types [...] [facility] AD[facility] [address] [place] [address] Raza Boo documented as of this encounter Visit Diagnoses Not on filedocumented in this encounter Additional Health Concerns Assessment Noted Time PHQ-9 Depression Total Score: 8 06/05/19 25 2:12 PM EST documented as of this encounter Care Teams Software Educator Relationship Specialty Start Date End Date Jimmy Boo MD [address] [place] [address] PCP - General Internal Medicine 05/03/13 documented as of this encounter
--- OUTSIDE RECORDS SUMMARY | 2025-02-25 10:49 | XMS_ITS | Encounter Summary ---
Author Organization [employer] Address [address] [place] [address] 7 [place] [address] Care Team Providers Care Triage Clinician Name Role Phone Jimmy Boo MD Primary Care Provider [phone] Reason for Referral * Imaging (Routine) - Authorized Specialty Diagnoses / Procedures Referred By Lonny t Referred To Contact Radiology Diagnoses Subcutaneous nodule Chronic pain of right thumb Procedures US SOFT TISSUE Jimmy Boo MD [address] [place] [address] Phone: tel: fax: [address] [address] Phone: tel: fax: Referral ID Status Reason Start Date Expiration Date V isits Requested Visits Authorized [id number] Authorized 01/01/2025 01/01/2026 1 1 * Consultation (Urgent) - Closed Specialty Diagnoses / Procedures Referred By Lonny t Referred To Contact Obstetrics and Gynecology Diagnoses Subcutaneous nodule Jimmy Boo MD [address] [place] [address] Phone: tel: fax: Zack Gray MD [address] [place] [address] [place] [address] Phone: tel: fax: Referral ID Status Reason Start Date Expiration Date V isits Requested Visits Authorized [id number] Closed Specialty Services Required 12/31/2024 12/31/2025 1 1 Encounter Details Date Type Department Care Team ([facility] st Contact Info) Description 12/31/[address] [facility] CHC MED & PEDS [address] [place] [address] Jimmy Boo MD [address] [place] [address] Subcutaneous nodule (Primary Dx); Chronic pain of [...] Description 04/01/2025 2:15 PM EST Office Visit [facility] CHC ADULT DENTAL [address] [place] [address] Raza Boo Scheduled Orders Name Type Priority [...] documented as of this encounter Care Teams Triage Clinician Relationship Specialty Start Date End Date Jimmy Boo MD [address] [place] [address] PCP - General Internal Medicine 05/03/13 documented as of this encounter
--- OUTSIDE RECORDS SUMMARY | 2025-02-25 10:49 | XMS_ITS | Encounter Summary ---
Author Organization [employer] Address [address] [facility] 7 [place] [address] Care Team Providers Care Janitorial Assistant Name Role Phone Jimmy Boo MD Primary Care Provider [phone] Encounter Details Date Type Department Care Team ([facility] Contact Info) Description 08/17/2022 Abstract [facility] MED & PEDS [address] [place], [place] [phone] Jimmy Boo MD [address] [place] [address] Social History Tobacco Use Types Packs/Day Years [...] [facility] ADULT D[facility] [address] [place] [address] Raza Boo documented as of this encounter [...] EDT Recommended 5 year follow up ( [facility]) us Historical Provider HEALTH MAINTENANCE Final Result documented in this encounter Visit Diagnoses Not on filedocumented in this encounter Care Teams Janitorial Assistant Relationship Specialty Start Date End Date Jimmy Boo MD [address] [place] [address] PCP - General Internal Medicine 05/03/13 documented as of this encounter
--- OUTSIDE RECORDS SUMMARY | 2025-02-25 10:49 | XMS_ITS | Clinical Summary ---
Author Organization [address] [facility] Address [address] [place] [address] Phone Care Team Providers Care Lacquer Polisher Name Role Phone Jimmy Boo MD Primary Care Provider [phone] Allergies Active Allergy Reactions Criticality Noted Date [...] needed for wheezing or shortness of breath. Active Encounters Date Type Department Care Team Description 02/06/2025 11:52 AM EST - 02/06/2025 11:59 PM EST Hospital Encounter [facility] MRI [address] [place] [id number] Multiple sclerosis Discharge Disposition: Home or Self Care 02/06/2025 11:51 AM EST - 02/06/2025 11:59 PM EST Hospital Encounter [facility] MRI [address] [place] [id number] Multiple sclerosis Discharge Disposition: Home or Self Care 01/23/2025 11:40 AM EDT Office Visit [facility] [address] [facility] [address] [place] [address] Ton Prather MD Multiple sclerosis (Primary Dx); Other fatigue; Gait abnormality from Last 3 Months Surgical History Surgery Date Site/Laterality Comments OTHER SURGICAL HISTORY PROCEDURE: [place] EXC [place] GLAND/CYST; COMMENT: Vulva lipoma resection 06/2018 TUBAL LIGATION PROCEDURE: HISTORICAL TUBAL LIGATION OTHER SURGICAL HISTORY PROCEDURE: [place] CYSTOURETHROSCOPY W/INTERNAL URETHROTOMY; COMMENT: urethral diverticulum OTHER [...] in female; COMMENT: Right IDC, pT1c N1a, 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, 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, s/p partial mastectomy and [...] Description 03/27/2025 11:00 AM EST Office Visit [facility] [address] [facility] [address] [place] [address] Ton Prather MD [address] [place] [address] Health Maintenance Due Date Last Done Comments [...] Signed Date: 02/10/2025 13:21 ET Workstation ID: [id number] Transcribed By: Self Edit Transcribed Date: 02/10/2025 [...] Signed Date: 02/10/2025 13:21 ET Workstation ID: [id number] Transcribed By: Self Edit Transcribed Date: 02/10/2025 09:04 ET Ton Prather MD [facility] MRI PROCEDURES Final Result * MR Cervical [...] Signed Date: 02/10/2025 13:37 ET Workstation ID: [id number] Transcribed By: Self Edit Transcribed Date: 02/10/2025 [...] Signed Date: 02/10/2025 13:37 ET Workstation ID: [id number] Transcribed By: Self Edit Transcribed Date: 02/10/2025 13:21 ET Ton Prather MD [facility] MRI PROCEDURES Final Result * Pap smear (05/10/2022) 05/10/2022 Narrative HISTORICAL TESTING LAB RESULTING AGENCY - 05/21/2022 11:11 AM EST [id number] THINPREP PAP, IMAGED: ATYPICAL SQUAMOUS CELLS OF [...] Most Recently Relevant to Health Maintenance Insurance [facility] MEDICARE Member Subscriber Plan / Payer (Ef fective 2022-Present) Name:LAKISHA STEVENS Relation to Subscriber:Self Name:Lakisha Stevens Payer ID:[id number] Group ID:[id number] Type:Not on file Address: [place] [address] [address] [place] [address] Care Teams Lacquer Polisher Relationship Specialty Start Date End Date Jimmy Boo MD [address] [place] [address] PCP - General Internal Medicine 11/23/19
--- OUTSIDE RECORDS SUMMARY | 2025-02-25 10:49 | XMS_ITS | Encounter Summary ---
Author Organization [employer] Address [address] [facility] 7 [place] [address] Care Team Providers Care Joint Finisher Name Role Phone Jimmy Boo MD Primary Care Provider [phone] Encounter Details Date Type Department Care Team ([facility] Contact Info) Description 07/07/2023 Orders Only [facility] MED & PEDS [address] [place], [place] [phone] Jimmy Boo MD [address] [place] [address] Diverticulosis of colon (Primary Dx) Social History [...] [facility] [address] [place] [address] Raza Boo Scheduled Orders Name Type Priority Associated Diagnoses Orde r Schedule Fecal Globin by Immunochemistry Lab Routine Diverticulosis of colon Expected: 07/07/2023 (Approximate), Expires: 07/06/2024 Urinalysis Complete Lab Routine Diverticulosis of colon Expected: 07/07/2023 (Approximate), Expires: 07/06/2024 documented as of this encounter Visit Diagnoses Diagnosis Diverticulosis of colon- Primary Diverticulosis of colon (without mention of hemorrhage) documented in this encounter Care Teams Joint Finisher Relationship Specialty Start Date End Date Jimmy Boo MD [address] [place] [address] PCP - General Internal Medicine 05/03/13 documented as of this encounter
--- OUTSIDE RECORDS SUMMARY | 2025-02-25 10:49 | XMS_ITS | Encounter Summary ---
Author Organization [employer] Address [address] [facility] 7t [place] [address] Care Team Providers Care Reception Interviewer Name Role Phone Jimmy Boo MD Primary Care Provider [phone] Encounter Details Date Type Department Care Team ([facility] Contact Info) Description 06/25/2022 Orders Only [facility] MED & PEDS [address] [place], [place] [phone] Gray Barnes MD [address] [place], [place] [phone] Primary insomnia; SOB (shortness of breath) Social [...] Upcoming Encounters Date Type Department Care Team ([facility] Contact Info) Description 04/01/2025 2:15 PM EST Office Visit [facility] ADULT DENTAL [address] [place] [address] Raza Boo documented as of this encounter Visit Diagnoses Diagnosis Primary insomnia Persistent disorder of initiating or maintaining sleep SOB (shortness of breath) Shortness of breath documented in this encounter Care Teams Reception Interviewer Relationship Specialty Start Date End Date Jimmy Boo MD [address] [place] [address] PCP - General Internal Medicine 05/03/13 documented as of this encounter
--- OUTSIDE RECORDS SUMMARY | 2025-02-25 10:49 | XMS_ITS | Encounter Summary ---
Author Organization [employer] Address [address] [facility] 7 [place] [address] Care Team Providers Care Frame Tender Name Role Phone Jimmy Boo MD Primary Care Provider [phone] Reason for Visit * Reason Onset Date Comments Medication Question 06/21/2022 Encounter Details Date Type Department Care Team ([facility] Contact Info) Description 06/21/2022 Telephone [facility] CHC MED & PEDS [address] [place], [place] [phone] Jimmy Boo MD [address] [place], [place] [phone] Medication Question Social History Tobacco Use Types [...] Pt requesting Rx be sent to [facility] pharmacy on [facility]. * Telephone Encounter - Sangeetha Glenys - [...] [facility] ADULT [facility] [address] [place] [address] Raza Boo documented as of this encounter Visit Diagnoses Diagnosis Primary insomnia Persistent disorder of initiating or maintaining sleep SOB (shortness of breath) Shortness of breath documented in this encounter Care Teams Frame Tender Relationship Specialty Start Date End Date Jimmy Boo MD [address] [place] [address] PCP - General Internal Medicine 05/03/13 documented as of this encounter
--- OUTSIDE RECORDS SUMMARY | 2025-02-25 10:49 | XMS_ITS | Encounter Summary ---
Author Organization [employer] Address [address] [facility] [address] 7[address] [place] [address] Care Team Providers Care Documentation Clerk Name Role Phone Jimmy Boo MD Primary Care Provider [phone] Encounter Details Date Type Department Care Team ([facility] st Contact Info) Description 02/11/2025 Orders Only [facility] CHC MED & PEDS [address] [place], [place] [phone] Provider, MD Ynes Social History Tobacco Use [...] Upcoming Encounters Date Type Department Care Team ([facility] st Contact Info) Description 04/01/2025 2:15 PM EST Office Visit [facility] ADULT DENTAL [address] [place] [address] Raza Boo documented as of this encounter [...] documented as of this encounter Care Teams Documentation Clerk Relationship Specialty Start Date End Date Jimmy Boo MD [address] [place] [address] PCP - General Internal Medicine 05/03/13 documented as of this encounter
--- OUTSIDE RECORDS SUMMARY | 2025-02-25 10:49 | XMS_ITS | Clinical Summary ---
Author Organization [employer] Address [address] [place] [address] 7t [place] [address] Care Team Providers Care Palletiser Operator Name Role Phone Jimmy Boo MD Primary Care Provider [phone] Allergies Active Allergy Reactions Criticality Noted Date [...] the morning. 06/24/19 21 Active sodium chloride (Cactus) 0.65 % nasal spray Administer 2 sprays [...] 24 Active Sodium Fluoride 1.1 % cream [place] teeth for 2 minutes, morning and night. [...] 1 TABLET BY MOUTH EVERYDAY AT BEDTIME Do not start before February 22, 2025. 30 tablet 02/23/20 25 Active zolpidem (Ambien) 10 MG tabletIndicat ions:Primary insomnia TAKE 1 TABLET BY MOUTH EVERYDAY AT BEDTIME 30 tablet 01/26/20 25 025 Discontinued(Re order (will not trigger notification to Pharmacy)) Active Problems Problem Noted Date Diagnosed Date Right hand pain 12/19/2024 Diverticulosis of colon 06/21/2023 Malignant neoplasm of breast 06/21/2023 Anemia 08/13/2013 Asthma 08/13/2013 Gastroesophageal reflux disease 10/21/2011 Depressive disorder 08/05/2011 Multiple sclerosis 08/05/2011 Encounters Date Type Department Care Team Description 02/25/2025 Orders Only [facility] External Provider, [facility] 02/19/2025 Refill [facility] PEDS [address] [place], [place] [phone] Brandee Fong, YVONNE Primary insomnia 02/19/2025 Telephone [facility] MEDICINE [address] [place] [phone] Jimmy Boo MD Med Refill 02/12/2025 Orders Only GENERIC EXTERNAL DATA DEPARTMENT Provider, Generic External Data 02/11/2025 Orders Only [facility] [address] [place], [place] [phone] Ynes Hernandez MD 02/05/2025 Orders Only GENERIC EXTERNAL DATA DEPARTMENT Provider, Generic External Data 01/25/2025 Refill [facility] [address] [place], [place] [phone] Jimmy Boo MD Primary insomnia 01/11/2025 Orders Only GENERIC EXTERNAL DATA DEPARTMENT Provider, Generic External Data 01/10/2025 Telephone [facility] [address] [place], [place] [phone] Jimmy Boo MD Nurse Triage 01/01/2025 Results Follow-Up [facility] [address] [place] [address] Subha Kellogg, YVONNE US Pelvis Limited 12/31/2024 Orders Only [facility] [address] [place], [place] [phone] Jimmy Boo MD Subcutaneous nodule (Primary Dx); Chronic pain of right thumb 12/28/2024 Orders Only [facility] [address] [place], [place] [phone] Jimmy Boo MD 12/24/2024 Telephone [facility] ADULT DENTAL [address] [place] [phone] Luis Guzman DDS scripted toothpaste 12/24/2024 Refill [facility] MED[facility]INE [address] [place] [address] Jimmy Boo MD Primary insomnia 12/19/2024 9:00 AM EDT Office Visit [facility] [address] [place], [place] [phone] Jimmy Boo MD Right hand pain (Primary Dx); Subcutaneous nodule 12/19/2024 Travel 12/12/2024 Patient Outreach [facility] MEDIC[facility] [address] [place] [address] Jimmy Boo MD Pre-visit Planning ([facility] screening completed on 05/18/24) 11/26/2024 Refill [facility] [address] [facility] [place] [address] Jimmy Boo MD Primary insomnia from Last [...] PM EST Office Visit [facility] [address] [place] [phone] Raza Boo Health Maintenance Due Date Last Done Comments CT Colonography 1965 FIT DNA/Cologuard 1965 FIT 1965 FOBT 1965 Sigmoidoscopy 1965 Hepatitis B Vaccines (1 of 3 - 19+ 3-dose series) 1984 Pneumococcal Vaccine: 50+ Years (2 of 2 - PCV) 11/26/2012 11/27/2011 RSV Patients and Patients Aged 60 years or older (1 - Risk 50-74 years 1-dose series) 08/12/2015 Zoster Vaccines (2 of 3) 06/18/2016 04/23/2016 DTaP/Tdap/Td Vaccines (1 - Tdap) 02/19/2019 02/18/2019 Mammogram 01/28/2024 01/27/2023, 01/03, 11/16/2019, Additional history exists COVID-19 Vaccine ( season) 2024 12/18/2020, 11/27/2020 Influenza Vaccine (#1) 2024 Dental X-Ray: Bitewings 03/13/2025 03/12/20 24, 02/11/2023, [...] exists Pap Smear 02/06/2028 02/05/2025, 01/03, 11/07/2019 HIV Screening Completed 11/09/2022 Hepatitis C Screening [...] Name Priority Date/Time Associated Diagnosis Comments MR PELVIS W AND WO CONTRAST Routine 02/25/2025 9:33 AM EST HEMATOXYLIN AND EOSIN STAIN Routine 02/12/2025 12:27 PM EST MR THORACIC SPINE W AND WO CONTRAST [...] 1:51 PM EDT HM COLONOSCOPY Routine 06/04/2022 from Last 3 Months or Most Recently Relevant to Health Maintenance Results * MR Pelvis w/ and w/o Contrast (02/25/2025 9:33 AM EST) Anatomical Region Laterality Modality Body, Pelvis Magnetic Resonan ce 02/25/2025 9:33 AM EST Narrative 02/25/2025 10:43 AM EST [place] [address] Magnetic Resonance Report Signed Patient: Lakisha Hearn MR#: [id number] : 1965 Acct:[id number] Age/Sex: 59 / F ADM Date: 02/25/25 Loc: HO.MRI Attending Dr: Zack Gray MD Ordering Physician: Zack Gray MD Date of Service: 02/25/25 Procedure(s): MR pelvis wo/w con Accession Number(s): [id number] cc: Jimmy Boo MD; Zack Gray MD Reason for Exam: R10.2 - Pelvic and perineal pain EXAMINATION: MR PELVIS WITHOUT THEN WITH IV CONTRAST HISTORY: R10.2 - Pelvic and perineal pain. TECHNIQUE: Axial T1, fat-suppressed T1, and fat suppressed T2, and sagittal and coronal T2-weighted MR images of the pelvis were obtained. Subsequently, sagittal and axial fat-suppressed T1-weighted images were obtained after the intravenous administration of 5 mL Gadavist. COMPARISON: Correlation is made with a CT of the pelvis without contrast dated 01/11/2025. FINDINGS: The uterus measures approximately 7.3 x 2.5 x 3.8 cm. No fibroids are identified. The junctional zone is not thickened. The cervical stroma is preserved. The endometrium is unremarkable. The ovaries are not identified. There is a small amount of free fluid in the right adnexa. Multiple prominent vessels are noted in the adnexal regions. The urinary bladder is unremarkable. There is no pelvic lymphadenopathy. The visualized bones demonstrate normal marrow signal intensity. MR/MR pelvis wo/w con IMPRESSION: The ovaries are not identified. There are nonspecific prominent vessels in both adnexal regions. Electronically signed by: Keyshawn Alcantar MD 02/25/2025 10:40 AM [facility] Dictated By: Keyshawn Alcantar MD Signed By: <Electronically signed by Keyshawn Alcantar MD in OV> 02/25/25 1040 DD/ 0933 TD/TT: 02/25/25 1010 [place] Regulator: Procedure Note Donotuseinterpreter, Image - 02/25/2025 [place] [address] Magnetic Resonance Report Signed Patient: Lakisha Hearn [facility]#: [id number] : 1965Acct:[id number] Age/Sex: 59 / FADM Date: 02/25/25 Loc: HO.MRI Attending Dr: Zack Gray MD Ordering Physician: Zack Gray MD Date of Service: 02/25/25 Procedure(s): MR pelvis wo/w con Accession Number(s): [id number] cc: Jimmy Boo MD; Zack Gray MD Reason for Exam: R10.2 - Pelvic and perineal pain EXAMINATION: MR PELVIS WITHOUT THEN WITH IV CONTRAST HISTORY: R10.2 - Pelvic and perineal pain. TECHNIQUE: Axial T1, fat-suppressed T1, and fat suppressed T2, and sagittal and coronal T2-weighted MR images of the pelvis were obtained. Subsequently, sagittal and axial fat-suppressed T1-weighted images were obtained after the intravenous administration of 5 mL Gadavist. COMPARISON: Correlation is made with a CT of the pelvis without contrast dated 01/11/2025. FINDINGS: The uterus measures approximately 7.3 x 2.5 x 3.8 cm. No fibroids are identified. The junctional zone is not thickened. The cervical stroma is preserved. The endometrium is unremarkable. The ovaries are not identified. There is a small amount of free fluid in the right adnexa. Multiple prominent vessels are noted in the adnexal regions. The urinary bladder is unremarkable. There is no pelvic lymphadenopathy. The visualized bones demonstrate normal marrow signal intensity. MR/MR pelvis wo/w con IMPRESSION: The ovaries are not identified. There are nonspecific prominent vessels in both adnexal regions. Electronically signed by: Keyshawn Alcantar MD 02/25/2025 10:40 AM EST Dictated By: Keyshawn Alcantar MD Signed By: <Electronically signed by Keyshawn Alcantar MD in OV> 02/25/25 1040 DD/ 0933 TD/TT: 02/25/25 1010 [place] Regulator: [facility] External Provider IMG MRI PROCEDURES Final Result * Hematoxylin and Eosin Stain (02/12/2025 12:27 PM EST) 02/12/2025 12:2 7 PM EST 02/13/2025 11:35 AM EST [facility] LABS - 02/15/2025 2:10 PM EST ----- ------- Name: Lakisha Hearn Age/Sex: 59/F : 1965 [id number]#: [id number] Attend Dr: Zack Gray MD Re02/12/25 Status: DEP REF Location: [facility] Disch: ----- ------- SPEC : [id number] RECD: 02/13/25 STATUS: KENNETH THOMPSON NUM: [id number] ANDREAS: 02/12/25-[address] [facility] [address]: Zack Gray MD ENTERED: 02/13/25-1235 SP TYPE: Surgical OTHR DR: Jimmy Boo MD ORDERED: HE Stain/8, Gross Micro L4/3, IHC/3, Add. immunos/3, Ki-67/3, p16/3 Diagnosis A. Endocervix, curettage: - Low-grade squamous intraepithelial lesion (LILY 1); background atrophy. - No endocervical epithelium identified. B. Cervix, 1 o'clock, biopsy: - Low-grade squamous intraepithelial lesion (LILY 1); background atrophy. - No endocervical epithelium identified. C. Cervix, 12 o'clock, biopsy: - Low-grade squamous intraepithelial lesion (LILY 1); background atrophy. - No endocervical epithelium identified. Clinical History HPV positive Microscopic Description A-C. Microscopic sections reviewed. Immunostains for p16 and Ki-67 support the diagnoses in A, B and C Material Received A. ECC B. Cx bx 1 o'clock C. Cx bx 12 o'clock Gross Description A. Received in formalin is a 0.5 x 0.5 x 0.1 cm aggregate of barton soft tissue and mucus, totally submitted in A1. B. Received in formalin is 1 barton 3 mm soft tissue fragment, totally submitted in B1. C. Received in formalin are 2 barton 2 mm soft tissue fragments, totally submitted in C1. (TRACEYD) Special studies ordered and performed: Immunostains for p16 and Ki-67 on A, B and C CONTINUED ON NEXT PAGE ----- ------- Name: Lakisha Hearn Age/Sex: 59/F : 1965 Unit#: [id number] Attend Dr: Zack Gray MD Re02/12/25 Status: [facility] REF Location: [facility] Disch: ----- ------- SPEC : [id number] RECD: 02/13/25 STATUS: LONSebastian THOMPSON NUM: [id number] ANDREAS: 02/12/25-[address] [facility] [address]: Zack Gray MD ENTERED: 02/13/25- SP TYPE: Surgical OTHR DR: Jimmy Boo MD ORDERED: HE Stain/8, Gross Micro L4/3, IHC/3, Add. immunos/3, Ki-67/3, p16/3 IHC S/NG Disclaimer NOTE: Unless otherwise stated, all tissue is formalin-fixed and paraffin-embedded. Some or all of the immunohistochemical tests reported herein may have been developed and their performance characteristics determined by [facility]. They have not been cleared or approved by the U.S. Food and Drug Administration (FDA). However, the FDA has determined that such clearance or approval is not necessary. This laboratory is certified under the Clinical Laboratory Improvement Amendments of 1988 (CLIA) as qualified to perform high complexity clinical laboratory testing. Copies To: Jimmy Boo MD [facility] [address] [place] [address] [facility] [address] [place] [address] ----- ------- Signed (signature on file) Samuel Summers MD 02/15/25 1410 ----- ------- END OF REPORT us Generic External Data Provider LAB BLOOD ORDERAB LES Final Result [facility] [address] [place] [address] [phone] * MR Thoracic Spine w/ and w/o Contrast (02/06/2025 8:47 AM EST) Anatomical Region Laterality Modality Spine, T-spine Magnetic Resonan ce Historical Provider IMG MRI PROCEDURES Final Result * MR Cervical Spine w/ and w/o Contrast (02/06/2025 8:45 AM EST) Anatomical Region Laterality Modality Spine, C-spine Magnetic Resonan ce us Historical Provider MD ÁLVAREZ MRI PROCEDURES Final Result * Pap Smear (02/05/2025 9:13 AM EST) 02/05/2025 9:13 AM EST 02/06/2025 6:18 AM EST Narrative [facility] - 02/08/2025 3:26 PM EST ----- ------- Name: Lakisha Hearn Age/Sex: 59/F : 1965 Unit#: [id number] Attend Dr: Zack Gray MD Re02/05/25 Status: DEP REF Location: [facility] Disch: ----- ------- SPEC : [id number] RECD: 02/06/25 STATUS: KENNETH THOMPSON NUM: [id number] ANDREAS: 02/05/[address] [facility] [address]: Zack Gray MD ENTERED: 02/06/25 SP [...] and HPV testing will be performed at [facility] (CLIA #[id number]), [address] [place] [address]. Testing for HPV was performed using the Tre ZULEMA 6800 system. The presence of HPV in the [...] detected. All professional services are performed by [facility] ([address] [place] [address]; ; CLIA #[id number]). The PAP Test is a screening procedure with the inherent possibility of both false negative and false positive results. Results should be interpreted in the context of historic and current clinical findings. Reliability of the PAP Test is enhanced by performing the test on a regular repetitive basis. CONTINUED ON NEXT PAGE ----- ------- Name: Lakisha Hearn Age/Sex: 59/F : 1965 Unit#: [id number] Attend Dr: Zack Gray MD Re02/05/25 Status: DEP REF Location: [facility] Disch: ----- ------- SPEC : [id number] RECD: 02/06/25 STATUS: KENNETH MACKAY NUM: [id number] ANDREAS: 02/05/[address] [facility] [address]: Zack Gray MD ENTERED: 02/06/25 SP TYPE: Pap Smr OTHR DR: Jimmy Boo MD ORDERED: Pap Smear Copies To: Jimmy Boo MD [address] [facility] Women's Services [address] [place] [address] ----- ------- Signed (signature on file) SALLY Elena ([facility]) 02/08/25 1526 ----- ------- END OF REPORT us Generic External Data Provider LAB CYTOLOGY LUCIA MISHRA Final Result [facility] [address] [place] [address] [phone] * Chlamydia/Trichomonas/Neisseria gonorrhoeae, PCR, Urine (02/05/2025 8:45 AM EST) CT PCR, Urine NOT DETECTED Not Detect. [facility] Comment:A not detected test result does [...] NG PCR, Urine NOT DETECTED Not Detect. [facility] Comment:A not detected test result does [...] Provider LAB URINE ORDERAB LES Final Result [facility] [address] [place] [phone] * (ABNORMAL) HPV DNA, Low/High Risk (02/05/2025 12:00 AM EST) HPV High Risk Negative Negative [facility] HPV Genotype 16 Positive(A) Negative [facility] HPV Genotype 18 Negative Negative [facility] Comment:HPV testing performe d at [facility] (CLIA#[id number]), [address] [place] [address].Testing for HPV was performed using the Tre [...] detected. 02/05/2025 02/06/2025 6:1 8 AM EST us Generic External Data Provider LAB BLOOD ORDERAB LES Final Result Performing Organization Address City/State/[facility] Co de Phone Number [facility] [address] [place] [address] [phone] * CT Abdomen Pelvis w/o Contrast (01/11/2025 4:00 PM EDT) Anatomical Region Laterality Modality Body, Pelvis, Abdomen Computed T omography 01/11/2025 4:00 PM EDT Narrative 01/11/2025 5:10 PM EDT [place] [address] CT Scan Report Signed Patient: Lakisha Hearn MR#: [id number] : 1965 Acct:[id number] Age/Sex: 59 / F ADM Date: 01/11/25 Loc: HO.ED Attending Dr: Ordering Physician: Ghada Chen Date of Service: 01/11/25 Procedure(s): CT abdomen pelvis wo IV con Accession Number(s): [id number] cc: Jimmy Boo MD; Ghada Chen Report Number: [id number]: Total DLP = 330.00 mGy-cm Reason for [...] 01/11/25 1707 DD/ 1600 TD/TT: 01/11/25 1607 [place] Regulator: DREW Procedure Note Donotuseinterpreter, Image - 01/11/[address] [place] [address] [address] Scan Report Signed Patient: Lakisha Hearn [facility]#: [id number] : 1965Acct:[id number] Age/Sex: 59 / FADM Date: 01/11/25 Loc: .ED Attending Dr: Ordering Physician: Ghada Chen Date of Service: 01/11/25 Procedure(s): CT abdomen pelvis wo IV con Accession Number(s): [id number] cc: Jimmy Boo MD; Ghada Chen Report Number: [id number]: Total DLP = 330.00 mGy-cm Reason for [...] 01/11/25 1707 DD/ 1600 TD/TT: 01/11/25 1607 [place] Regulator: DREW [facility] External Provider IMG CT PROCEDURES Final Result * Urinalysis w/reflex microscopic (01/11/2025 1:55 PM EDT) Color Urine Yellow [facility] Appearance Urine Clear [facility] PH 5.5 5.0 - 9.0 [facility] Glucose Urine UA Negative Negative mg/dL [facility] Urine Blood Negative Negative [facility] Specific [place] - Urine 1.020 1.005 - 1.025 [facility] Urine Protein Negative Neg-Trace mg/dL [facility] Urine Ketones Trace Negative mg/dL [facility] Nitrite Urine Negative Negative [facility] Leukocyte Esterase Urine Negative Negative [facility] 01/11/2025 1:55 PM EDT 01/11/2025 2:00 PM EDT Narrative [facility] - 01/11/2025 2:07 PM EDT [id number], Clean Catch us Generic External Data Provider LAB URINE ORDERAB LES Final Result [facility] [address] [place] [address] [phone] * (ABNORMAL) CBC auto differential (01/11/2025 1:42 PM EDT) White Blood Count 5.6 4.8 - 10.8 X10*3/uL [facility] Red Blood Count 4.71 4.20 - 5.50 X10*6/uL [facility] Hemoglobin 14.7 12.0 - 16.0 g/dl [facility] Hematocrit 43.6 37.0 - 47.0 % [facility] Mean Corpuscular Volume 92.6 80.0 - 98.0 fL [facility] Mean Corpuscular Hemoglobin 31.2 27.0 - 33.0 pg [facility] Mean Corpuscular HGB Conc 33.7 31.0 - 35.0 g/dl [facility] Red Cell Distribution Width 12.4 11.0 - 16.0 % [facility] Platelet Count 213 160 - 400 X10*3/uL [facility] Mean Platelet Volume 9.1(L) 9.4 - 12.3 fL [facility] Neutrophils Percent Auto 69.6 45 - 73 % [facility] Imm Gran Pct Auto 0.2 0.0 - 0.4 % [facility] Lymphocytes Percent Auto 19.4(L) 20 - 40 % [facility] Monocytes Percent Auto 9.2 2 - 11 % [facility] Eosinophils Percent Auto 1.1 0 - 4 % [facility] Basophils Percent Auto 0.5 0 - 2 % [facility] NRBC Pct Auto 0.0 0.0 - 0.2 /100WBC [facility] Neutrophils Absolute Auto 3.9 2.0 - 8.3 x10*3/uL [facility] Imm Gran Abs Auto 0.01 0.00 - 0.03 X10*3/uL [facility] Lymphocytes Absolute Auto 1.1(L) 1.2 - 4.9 X10*3/uL [facility] Monocytes Absolute Auto 0.5 0.1 - 1.2 X10*3/uL [facility] Eosinophils Absolute Auto 0.1 0.0 - 0.4 X10*3/uL [facility] Basophils Absolute Auto 0.0 0.0 - 0.2 X10*3/uL [facility] NRBC Abs Auto 0.000 0.0 - 0.012 X10*3/uL [facility] 01/11/2025 1:42 PM EDT 01/11/2025 1:45 PM EDT us Generic External Data Provider LAB BLOOD ORDERAB LES Final Result [facility] [address] [place] [address] [phone] * hCG, Total, Quantitative (01/11/2025 1:42 PM EDT) HCG Quantitative <2 mIU/mL [facility] Comment:Weeks post LMP Appro ximate hCG(Last Menstrual Period) Range (mIU/ml)3 - 4 weeks 9 - 1304 - 5 weeks 75 - 2,6005 - 6 weeks 850 - 20,8006 - 7 weeks 4000 - 100,2007 - 12 weeks 11,500 - 289,67790 - 16 weeks 18,300 - 137,33148 - 29 weeks (2nd trimester) 1,400 - 53,49582 - 41 weeks (3rd trimester) 940 - [...] ORDERAB LES Final Result Performing Organization Address [facility] [address] [facility] de Phone Number [facility] [address] [place] [phone] * Magnesium (01/11/2025 1:42 PM EDT) Pathologist [facility] Magnesium 2.1 1.6 - 2.6 mg/dL [facility] 01/11/2025 1:42 PM EDT 01/11/2025 1:45 PM EDT Generic External Data Provider LAB BLOOD ORDERAB LES Final Result Performing Organization Address [facility] Phone Number [facility] [address] [place] [phone] * Lipase (01/11/2025 1:42 PM EDT) Pathologist [facility] Lipase 24 8 - 78 U/L [facility] 01/11/2025 1:42 PM EDT 01/11/2025 1:45 PM EDT Generic External Data Provider LAB BLOOD ORDERAB LES Final Result Performing Organization Address [facility] Phone Number [facility] [address] [place] [phone] * Hepatic Function Panel (01/11/2025 1:42 PM EDT) Bilirubin, Total 0.5 0.0 - 1.0 mg/dL [facility] Bilirubin, Direct 0.2 0.0 - 0.5 mg/dL [facility] Aspartate Amino Transferase 20 5 - 31 U/L [facility] Alanine Aminotransferase 14 0 - 31 U/L [facility] Total Protein 7.0 6.5 - 8.0 g/dL [facility] Albumin Level 4.6 3.5 - 5.0 g/dL [facility] Alkaline Phosphatase 78 39 - 117 U/L [facility] 01/11/2025 1:42 PM EDT 01/11/2025 1:45 PM EDT us Generic External Data Provider LAB BLOOD ORDERAB LES Final Result [facility] [address] [place] [address] [phone] * (ABNORMAL) Basic Metabolic Panel (01/11/2025 1:42 PM EDT) Sodium 140 135 - 145 mmol/L [facility] Potassium 4.4 3.3 - 5.1 mmol/L [facility] Chloride 105 96 - 108 mmol/L [facility] Carbon Dioxide 29 22 - 29 mmol/L [facility] Anion Gap 10(L) 12 - 20 [facility] Urea Nitrogen (BUN) 12 9 - 16 mg/dL [facility] Creatinine, Serum 0.66 0.5 - 1.4 mg/dL [facility] Creatinine Clr Calc Pharmacy 68.9 [facility] Comment:Provided height and weight: 165.1 cm,47.536 kg.eGFR (calculated from the MDRD study equation) and eCrCl(calculated from the Cockcroft-Gault equation) are based ondifferent parameters and may not yield comparable results.If eCrCl result is absurd, please check patient'sheight/weight. Estimated Glomerular Filt Rate >60 [facility] Comment:Chronic Kidney Disea se: Estimated GFR < 60 mL/min/1.56n3Yneuop Kidney Disease: Estimated GFR < 15 mL/min/1.73m2 Glucose 91 60 - 115 mg/dL [facility] Calcium 9.7 8.4 - 10.2 mg/dL [facility] [facility] 01/11/2025 1:42 PM EDT 01/11/2025 1:45 PM EDT us Generic External Data Provider LAB BLOOD ORDERAB LES Final Result [facility] [address] [place] [phone] * US Pelvis Limited (12/29/2024 3:49 PM EDT) Anatomical Region Laterality Modality Pelvis Ultrasound 12/29/2024 3:49 PM EDT Narrative 12/29/2024 3:50 PM EDT [address] [address] Ultrasound Report Signed Patient: Lakisha Hearn MR#: [id number] : 1965 Acct:[id number] Age/Sex: 59 / F ADM Date: 12/28/24 Loc: HO.US Attending Dr: Jimmy Boo MD Ordering Physician: Jimmy Boo MD Date of Service: 12/28/24 Procedure(s): US pelvic limited Accession Number(s): [id number] cc: Jimmy Boo MD Reason for Exam: [...] 12/29/24 1550 DD/ 1549 TD/TT: 12/29/24 1549 Bessemer Regulator: Procedure Note Donotuseinterpreter, Image - 12/29/[address] [address] Ultrasound Report Signed Patient: Lakisha Hearn AMR#: [id number] : 1965Acct:[id number] Age/Sex: 59 / FADM Date: 12/28/24 Loc: HO.US Attending Dr: Jimmy Boo MD Ordering Physician: Jimmy oBo MD Date of Service: 12/28/24 Procedure(s): US pelvic limited Accession Number(s): [id number] cc: Jimmy Boo MD Reason for Exam: [...] in OV> 12/29/24 1550 DD/ 1549 TD/TT: 12/29/241548 Bessemer Regulator: us Jimmy Boo MD IMG US PROCEDURES Edited Re sult - Final * XR Hand 3+ Views Right (12/19/2024 10:14 AM EDT) Anatomical Region Laterality Modality Upper Extremities, Hand Right Radiogra phic Imaging 12/19/2024 10:1 4 AM EDT Narrative 12/19/2024 10:24 AM EDT [address] [address] XRay Report Signed Patient: Lakisha Hearn MR#: [id number] : 1965 Acct:[id number] Age/Sex: 59 / F ADM Date: 12/19/24 Loc: [facility] Attending Dr: Jimmy Boo MD Ordering Physician: Jimmy Boo MD Date of Service: 12/19/24 Procedure(s): XR hand RT min 3V Accession Number(s): [id number] cc: Jimmy Boo MD Reason for Exam: [...] 12/19/24 1021 DD/ 1014 TD/TT: 12/19/24 1017 Bessemer Regulator: Procedure Note Donotuseinterpreter, Image - 12/19/[address] [address] XRay Report Signed Patient: Lakisha Hearn AMR#: [id number] : 1965Acct:[id number] Age/Sex: 59 / FADM Date: 12/19/24 Loc: [facility] Attending Dr: Jimmy Boo MD Ordering Physician: Jimmy Boo MD Date of Service: 12/19/24 Procedure(s): XR hand RT min 3V Accession Number(s): [id number] cc: Jimmy Boo MD Reason for Exam: [...] 12/19/24 1021 DD/ 1014 TD/TT: 12/19/24 1017 Bessemer Regulator: us Jimmy Boo MD IMG XR PROCEDURES Edited Re sult - Final * Mammography (01/27/2023) Mammogram negative Anatomical Region Laterality Modality Other Narrative 01/27/2023 Bi rads -negative us Jimmy Boo MD HEALTH MAINTENANCE Final Re sult * Hepatitis C Antibody Reflex (11/09/2022 1:51 PM EDT) Hepatitis C Antibody Nonreactive Nonreactive [facility] Comment:Antibodies to HCV no t detected; does not exclude early acuteHCV infection. 11/09/2022 1:51 PM EDT 11/09/2022 5:49 PM EDT us Venecia Butcher [facility] LAB BLOOD ORDERABLES Rach l Result [facility] [address] [place] [address] [phone] * HIV Ab/Ag (MIGUEL MARSH) (11/09/2022 1:51 PM EDT) HIV AB/AG Nonreactive Nonreactive [facility] Comment:HIV-1 p24 Ag and/or HIV-1/HIV-2 Ab not detected.A test result that is nonreactive does not exclude thepossibility of exposure to or infection with HIV-1 and/orHIV-2. Nonreactive results in this assay for individualswith prior exposure to HIV-1 and/or HIV-2 may be due toantigen and antibody levels that are below the limit ofdetection of this assay.The [employer]kew Pyrotechnist HIV Ag/Ab Combo assay result andsupplemental assay results should be interpreted inconjunction with the patient's clinical presentation,history and other laboratory results. If the results areinconsistent with clinical evidence, additional testing issuggested to confirm the result. 11/09/2022 1:51 PM EDT 11/09/2022 5:49 PM EDT Venecia Butcher CNM LAB BLOOD ORDERABLES Rach l Result [facility] [address] [place] [address] [phone] * Hm Colonoscopy (06/04/2022) Colonoscopy Normal Normal 06/04/2022 Narrative Jacey Pedro - 06/04/2022 2:23 PM EST Recommended 5 year follow up due to family hx of cancer ( see scanned report ) Historical Provider HEALTH MAINTENANCE Final Result from Last 3 Months or Most Recently Relevant to Health Maintenance Insurance Care Teams Palletiser Operator Relationship Specialty Start Date End Date Jimmy Boo MD [address] [place] [address] PCP - General Internal Medicine 05/03/13
--- OUTSIDE RECORDS SUMMARY | 2025-02-25 10:49 | XMS_ITS | Encounter Summary ---
Author Organization [employer] Address [address] [place] [address] 7 [place] [address] Care Team Providers Care Product Lead Name Role Phone Jimmy Boo MD Primary Care Provider [phone] Encounter Details Date Type Department Care Team ([facility] Contact Info) Description 06/21/2023 Orders Only [facility] MED & P[facility] [address] [place], [place] [phone] Jimmy Boo MD [address] [place], [place] [phone] Primary insomnia Social History Tobacco Use Types [...] Visit [facility] ADULT DENTAL [address] [place], [place] [phone] Raza Boo documented as of this encounter Visit Diagnoses Diagnosis Primary insomnia Persistent disorder of initiating or maintaining sleep documented in this encounter Care Teams Product Lead Relationship Specialty Start Date End Date Jimmy Boo MD [address] [place] [address] PCP - General Internal Medicine 05/03/13 documented as of this encounter
--- OUTSIDE RECORDS SUMMARY | 2025-02-25 10:49 | XMS_ITS | Encounter Summary ---
Author Organization [employer] Address [address] [facility] 7t [place] [address] Care Team Providers Care Contract Paralegal Name Role Phone Jimmy Boo MD Primary Care Provider [phone] Reason for Visit * Reason Onset Date Comments Med Refill 02/19/2025 Encounter Details Date Type Department Care Team ([facility] st Contact Info) Description 02/19/2025 Telephone [facility] [address] [place] [address] Jimmy Boo MD [address] [place] [address] Med Refill Social History Tobacco Use Types [...] encounter Miscellaneous Notes * Telephone Encounter - Julia Benjamin - 02/19/2025 1:31 PM EST Tc from pt requesting med refill: zolpidem (Ambien) [address] Boo documented in this encounter Plan of Treatment Upcoming Encounters Date Type Department Care Team (Late st Contact Info) Description 04/01/2025 2:15 PM EST Office Visit [facility] ADULT DENTAL [address] [place] [address] Raza Boo documented as of this encounter Visit Diagnoses Not on filedocumented in this encounter Additional Health Concerns Assessment Noted Time PHQ-9 Depression Total Score: 8 06/05/19 25 2:12 PM EST documented as of this encounter Care Teams Contract Paralegal Relationship Specialty Start Date End Date Jimmy Boo MD [address] [place] [address] PCP - General Internal Medicine 05/03/13 documented as of this encounter
--- OUTSIDE RECORDS SUMMARY | 2025-02-25 10:49 | XMS_ITS | Encounter Summary ---
Author Organization [employer] Address [address] [facility] [address] 7[address] [place] [address] Care Team Providers Care Machine Feeder Raw Stock Name Role Phone Jimmy Boo MD Primary Care Provider [phone] Reason for Visit * Reason Comments Med Refill Encounter Details Date Type Department Care Team ([facility] Contact Info) Description 10/03/2023 Refill [facility] ADULT DENTAL [address] [place] [address] Mary Jane Massey DMD Social History Tobacco [...] [facility] AD[facility] [address] [place] [address] Raza Boo documented as of this encounter Visit Diagnoses Not on filedocumented in this encounter Care Teams Machine Feeder Raw Stock Relationship Specialty Start Date End Date Jimmy Boo MD [address] [place] [address] PCP - General Internal Medicine 05/03/13 documented as of this encounter
--- OUTSIDE RECORDS SUMMARY | 2025-02-25 10:49 | XMS_ITS | Encounter Summary ---
Author Organization [employer] Address [address] 7t [place] [address] Care Team Providers Care Micro Computer Data Processor Name Role Phone Jimmy Boo MD Primary Care Provider [phone] Reason for Visit * Reason Comments Med Refill Encounter Details Date Type Department Care Team ([facility] Contact Info) Description 08/27/2023 Refill [facility] ADULT DENTAL [address] [place] [address] Mary Jane Massey DMD Social History Tobacco [...] Description 04/01/2025 2:15 PM EST Office Visit [facility] ADULT DENTAL [address] [place] [address] Raza Boo documented as of this encounter Visit Diagnoses Not on filedocumented in this encounter Care Teams Micro Computer Data Processor Relationship Specialty Start Date End Date Jimmy Boo MD [address] [place] [address] PCP - General Internal Medicine 05/03/13 documented as of this encounter
--- OUTSIDE RECORDS SUMMARY | 2025-02-25 10:49 | XMS_ITS | Encounter Summary ---
Author Organization [employer] Address [address] [place] [address] 7 [place] [address] Care Team Providers Care Script Supervisor Name Role Phone Jimmy Boo MD Primary Care Provider [phone] Reason for Visit * Reason Comments Med Refill Encounter Details Date Type Department Care Team ([facility] Contact Info) Description 06/23/2022 Refill [facility] MED & PED[facility] [address] [place] [address] Jimmy Boo MD [address] [place] [address] Primary insomnia Social History Tobacco Use Types [...] Visit [facility] ADULT DENTAL [address] [place] [address] Raza Boo documented as of this encounter Visit Diagnoses Diagnosis Primary insomnia Persistent disorder of initiating or maintaining sleep documented in this encounter Care Teams Script Supervisor Relationship Specialty Start Date End Date Jimmy Boo MD [address] [place] [address] PCP - General Internal Medicine 05/03/13 documented as of this encounter
--- OUTSIDE RECORDS SUMMARY | 2025-02-25 10:49 | XMS_ITS | Encounter Summary ---
Author Organization [employer] [facility] Address [address] [place] [address] 7 [place] [address] Care Team Providers Care Cotton Picker Operator Name Role Phone Jimmy Boo MD Primary Care Provider [phone] Encounter Details Date Type Department Care Team (Late Contact Info) Description 05/16/2023 Abstract [facility] ADULT DENTAL [address] [place] [address] Mary Jane Massey DMD Social History Tobacco [...] Visit [facility] ADULT DENTAL [address] [place] [address] Raza Boo documented as of this encounter Visit Diagnoses Not on filedocumented in this encounter Care Teams Cotton Picker Operator Relationship Specialty Start Date End Date Jimmy Boo MD [address] [place] [address] PCP - General Internal Medicine 05/03/13 documented as of this encounter
--- OUTSIDE RECORDS SUMMARY | 2025-02-25 10:49 | XMS_ITS | Encounter Summary ---
Author Organization [employer] Address [address] [place] [address] 7 [place] [address] Care Team Providers Care Product Management Internship Name Role Phone Jimmy Boo MD Primary Care Provider [phone] Encounter Details Date Type Department Care Team ([facility] Contact Info) Description 04/13/2023 Abstract [facility] ADULT [facility] [address] [place] [address] Zahira Harris DDS [address] [place], [place] [phone] Social History Tobacco Use Types Packs/Day Years [...] Encounters Date Type Department Care Team ([facility] Contact Info) Description 04/01/2025 2:15 PM EST Office Visit [facility] [address] [place] [address] Raza Boo documented as of this encounter Visit Diagnoses Not on filedocumented in this encounter Care Teams Product Management Internship Relationship Specialty Start Date End Date Jimmy Boo MD [address] [place], [place] [phone] PCP - General Internal Medicine 05/03/13 documented as of this encounter
--- OUTSIDE RECORDS SUMMARY | 2025-02-25 10:49 | XMS_ITS | Patient Health Record ---
Author Organization [facility] Address [address] [place] [address] Care Team Providers Care Menu Planner Name Role Phone Jimmy Boo M.D. Primary Care Provider Un available Keyshawn Lopez Unavailable [phone] Allergies Allergen (clinical drug ingredient) Drug/Non Drug Allergy documented on EMR Reaction Allergy Type Onset Date Status topiramate Topamax Unknown Drug Allergy Active Reason For Referral No Information Medications Medication SIG (Take, Route, Frequency, Duration) Notes Start Date End Date Status Ambien 5 MG Tablet 1 tablet at bedtime Orally Once a day Active MiraLax (colon prep) 17 GM/SCOOP Powder 1 238Gm bottle mixed with Gatorade or Crystal Light Orally begin at 5:00 p.m. the day before the procedure; Duration: 1 day 03/27/2022 Activ e Dulcolax (colon prep) 5 MG Tablet Delayed Release take at 3:00 p.m and 7:00p.m. Orally two tablets twice a day for one day; Duration: 1 day 03/27/2022 Active Immunizations Vaccine Route Administration Date Status Comme nts Influenza Unknown 03/17/2022 Refused Social History Social History Additional Details Category Social Info Options Details Miscellaneous: Marital status: single Occupation: disablity Section Notes: She does not smoke nor use a ny sig. amounts of alcohol She does not smoke nor use a ny sig. amounts of alcohol She does not smoke nor use a ny sig. amounts of alcohol Problems Problem Type SNOMED Code ICD Code Onset Dates Problem Status W/U Status Risk Notes Problem Screening for malignant neoplasm of colon (489296310) Encounter for screening for malignant neoplasm of colon (Z12.11) Active confirmed Problem Screening for malignant neoplasm of rectum (017497502) Encounter for screening for malignant neoplasm of rectum (Z12.12) Active confirmed Problem Family History of Cancer of Colon (Situation) (327662936) Family history of colon cancer (Z80.0) Active confirmed Problem Constipation (62948771) Constipation, unspecified constipation type (K59.00) Active confirmed Problem Diverticulosis of colon (804891542) Diverticulosis of colon (K57.30) Active confirmed Plan Of Treatment Future Test Test Name Order Date COLONOSCOPY 12/19/2015 COLONOSCOPY 03/17/2022 Insurance Providers Payer Name Payer Address Payer Phone Subscriber Number Group Number Insured Name Patient Relationship to Insured Coverage Start Date Coverage End Date [facility] [address] [place] [phone] [id number] PATRICIA DOOLEY Self - patient is the insured Medical (General) History Medical History History ICD Code Epilepsy--off seizure meds Multiple sclerosis Vertigo Denies [place],DM,CVA,Lung disease,renal dise ase Hx of breast cancer 2011--ri ght--lumpectomy, XRT , chemo--sees Dr. Samuel at [facility] x 3 Neg. colonoscopy in 2005, 06/2011, and 2016 Surgical History Surgery Date(Month/Year) Urethral diverticulum Right arm surgery BTL Exploratory laparoscopy Ear surgery for tubes Shoulder surgery--right shoulder 09/2015 Right breast cancer --lumpectomy Bone removed from left thumb Carpal tunnel on the left Cystoscopy 02/2022
--- OUTSIDE RECORDS SUMMARY | 2025-02-25 10:49 | XMS_ITS | Encounter Summary ---
Author Organization [employer] Address [address] [place] [address] 7 [place] [address] Care Team Providers Care Paper Sealer Name Role Phone Jimmy Boo MD Primary Care Provider [phone] Encounter Details Date Type Department Care Team ([facility] Contact Info) Description 03/02/2023 Abstract [facility] ADULT DENTAL [address] [place] [address] Zahira Harris DDS [address] [place], [place] [phone] Social History Tobacco Use Types Packs/Day Years [...] Encounters Date Type Department Care Team ([facility] Contact Info) Description 04/01/2025 2:15 PM EST Office Visit [facility] ADULT DENTAL [address] [place] [address] Raza Boo documented as of this encounter Visit Diagnoses Not on filedocumented in this encounter Care Teams Paper Sealer Relationship Specialty Start Date End Date Jimmy Boo MD [address] [place], [place] [phone] PCP - General Internal Medicine 05/03/13 documented as of this encounter
--- OUTSIDE RECORDS SUMMARY | 2025-02-25 10:49 | XMS_ITS | Encounter Summary ---
Author Organization [email or web address] Address [address] [place] [address] 7 [place] [address] Care Team Providers Care Cemetery Laborer Name Role Phone Jimmy Boo MD Primary Care Provider [phone] Reason for Visit * Reason Comments Med Refill Encounter Details Date Type Department Care Team ([facility] Contact Info) Description 06/19/2022 Refill [facility] MED & PEDS [address] [place] [address] Jimmy Boo MD [address] [place] [address] Primary insomnia Social History Tobacco Use Types [...] Upcoming Encounters Date Type Department Care Team ([facility] Contact Info) Description 04/01/2025 2:15 PM EST Office Visit [facility] ADULT DENTAL [address] [place] [address] Raza Boo documented as of this encounter Visit Diagnoses Diagnosis Primary insomnia Persistent disorder of initiating or maintaining sleep documented in this encounter Care Teams Cemetery Laborer Relationship Specialty Start Date End Date Jimmy Boo MD [address] [place] [address] PCP - General Internal Medicine 05/03/13 documented as of this encounter
--- OUTSIDE RECORDS SUMMARY | 2025-02-25 10:49 | XMS_ITS | Encounter Summary ---
Author Organization [employer] Address [address] [place] [address] 7 [place] [address] Care Team Providers Care First Press Operator Name Role Phone Jimmy Boo MD Primary Care Provider [phone] Reason for Referral * Consultation (Routine) - Closed Specialty Diagnoses / Procedures Referred By Contac t Referred To Contact Neurology Diagnoses Chronic tension-type headache, not intractable Jimmy Boo MD [address] [place] [address] Phone: tel: fax: Rory Garber MD [address] [place] [address] [place] [address] Phone: tel: fax: Referral ID Status Reason Start Date Expiration Date V isits Requested Visits Authorized [id number] Closed Specialty Services Required 03/18/2024 03/18/2025 1 1 Encounter Details Date Type Department Care Team (Late st Contact Info) Description 03/18/2024 Orders Only [facility] MED & PEDS [address] [place], [place] [phone] Jimmy Boo MD [address] [place], [place] [phone] Chronic tension-type headache, not intractable (Primary Dx) [...] [facility] ADULT DENTAL [address] [place] [address] Raza Boo Scheduled Referrals Name Type Priority Associated Diagnoses Orde r Schedule Referral to Neurology Outpatient Referral Routine Chronic tension-type headache, not intractable Expected: 03/18/2024 (Approximate), Expires: 03/18/2025 documented as of this encounter Visit Diagnoses Diagnosis Chronic tension-type headache, not intractable- Primary Chronic tension type headache documented in this encounter Care Teams First Press Operator Relationship Specialty Start Date End Date Jimmy Boo MD [address] [place] [address] PCP - General Internal Medicine 05/03/13 documented as of this encounter
--- OUTSIDE RECORDS SUMMARY | 2025-02-25 10:49 | XMS_ITS | Encounter Summary ---
Author Organization [employer] Address [address] [facility] [address] 7t [place] [address] Care Team Providers Care Public Bath Attendant Name Role Phone Jimmy Boo MD Primary Care Provider [phone] Encounter Details Date Type Department Care Team ([facility] Contact Info) Description 08/30/2023 Orders Only [facility] CH[facility] MED & PEDS [address] [place], [place] [phone] ProviderYnes MD Social History Tobacco Use Types [...] [facility] ADULT DENTAL [address] [place] [address] Raza Boo documented as of this encounter [...] filedocumented in this encounter Care Teams Public Bath Attendant Relationship Specialty Start Date End Date Jimmy Boo MD [address] [place] [address] PCP - General Internal Medicine 05/03/13 documented as of this encounter
--- OUTSIDE RECORDS SUMMARY | 2025-02-25 10:50 | XMS_ITS | Encounter Summary ---
Author Organization [employer] [facility] Address [address] [place] [address] 7 [place] [address] Care Team Providers Care Barker Operator Name Role Phone Jimmy Boo MD Primary Care Provider [phone] Reason for Visit * Reason Onset Date Comments rct appt 02/17/2023 Encounter Details Date Type Department Care Team ([facility] Contact Info) Description 02/17/2023 Telephone [facility] ADULT DENTAL [address] [place] [address] Tricia Davis DDS rct appt Social History [...] Encounters Date Type Department Care Team ([facility] Contact Info) Description 04/01/2025 2:15 PM EST Office Visit [facility] ADULT DENTAL [address] [place] [address] Raza Boo documented as of this encounter Visit Diagnoses Not on filedocumented in this encounter Care Teams Barker Operator Relationship Specialty Start Date End Date Jimmy Boo MD [address] [place] [address] PCP - General Internal Medicine 05/03/13 documented as of this encounter
--- OUTSIDE RECORDS SUMMARY | 2025-02-25 10:50 | XMS_ITS | Encounter Summary ---
Author Organization [employer] Address [address] [facility] 7t [place] [address] Care Team Providers Care Heavy Duty Custodian Name Role Phone Jimmy Boo MD Primary Care Provider [phone] Reason for Visit * Reason Onset Date Comments case back from lab?? 10/19/2022 Encounter Details Date Type Department Care Team ([facility] Contact Info) Description 10/19/2022 Telephone [facility] ADULT DENTAL [address] [place] [address] Luis Guzman, DDS [address] [place] [address] case back from lab?? Social History Tobacco [...] [facility] ADULT D[facility] [address] [place] [address] Raza Boo documented as of this encounter Visit Diagnoses Not on filedocumented in this encounter Care Teams Heavy Duty Custodian Relationship Specialty Start Date End Date Jimmy Boo MD [address] [place] [address] PCP - General Internal Medicine 05/03/13 documented as of this encounter
== END 2025-02-25 09:26 | disposition home or self-care (01) ==
LOC: HO.MRI 09:25
PROVIDERS: PCP Internal Medicine; Visit Provider Obstetrics & Gynecology
DX: R10.20 Pelvic and perineal pain unspecified side (principal)
CPT/HCPCS: 72197; A9585

== ENCOUNTER → 2025-02-25 09:28 | Outpatient (BNV) | payer OTHER, SELFPAY | PROVIDERS: PCP Internal Medicine; Visit Provider Radiology Diagnostic Radiology | DX: R10.20 Pelvic and perineal pain unspecified side (principal) | CPT/HCPCS: 72197 ==

== ENCOUNTER 2025-03-07 11:32 | Outpatient (AMB) | payer OTHER, SELFPAY ==
--- NOTE | 2025-03-07 11:34 | MHC.OFFVIS ---
Vital Signs 03/07/25 11:41 Height 4 ft 11 in Weight 105 lb BMI 21.2 BP 110/66 Intake Visit Reasons: MRI follow up/Udip/colpo results Substation Electrician Required: No Information Interpreted: non-clinical & clinical Accompanied by: Self / Same As Patient Allergies Iodinated Contrast Media (IV CONTRAST) Allergy (Severe, Verified 03/07/25 11:43) (ULTRAVIST) TINGLING OF LIPS AND SWELLING LIPS AND EYES adhesive tape (ADHESIVE TAPE) Allergy (Intermediate, Verified 03/07/25 11:43) BLISTERS tamoxifen (TAMOXIFEN) Allergy (Mild, Verified 03/07/25 11:43) GI UPSET Sulfa (Sulfonamide Antibiotics) (SULFA (SULFONAMIDE ANTIBIOTICS)) Allergy (Unknown, Verified 03/07/25 11:43) UNKNOWN bee pollen (bee stings) Allergy (Verified 03/07/25 11:43) Swelling Post menopausal: Yes HPI Comments Details: Presenting for repeat urine dip and pelvic MRI follow-up and post colpo follow-up. The visit urine dip showed microscopic hematuria, urine culture was negative. Right vulval pain is persistent however pelvic pain has improved markedly Pathology showed the following: A. Endocervix, curettage: - Low-grade squamous intraepithelial lesion (LILY 1); background atrophy. - No endocervical epithelium identified. B. Cervix, 1 o'clock, biopsy: - Low-grade squamous intraepithelial lesion (LILY 1); background atrophy. - No endocervical epithelium identified. C. Cervix, 12 o'clock, biopsy: - Low-grade squamous intraepithelial lesion (LILY 1); background atrophy. - No endocervical epithelium identified Pelvic MRI done on 02/25/2025 which showed the following: The uterus measures approximately 7.3 x 2.5 x 3.8 cm. No fibroids are identified. The junctional zone is not thickened. The cervical stroma is preserved. The endometrium is unremarkable. The ovaries are not identified. There is a small amount of free fluid in the right adnexa. Multiple prominent vessels are noted in the adnexal regions. The urinary bladder is unremarkable. There is no pelvic lymphadenopathy. The visualized bones demonstrate normal marrow signal intensity. MR/MR pelvis wo/w con IMPRESSION: The ovaries are not identified. There are nonspecific prominent vessels in both adnexal regions. 12/29/2024 pelvic ultrasound showed the following: Impression: Focal possible inflammatory process in the right labia rather than underlying mass which can not be entirely excluded. Clinical correlation is strongly advised. Contrast-enhanced MRI may be of further diagnostic value. 02/05/2025 pelvic exam showed normal finding with no evidence of swelling nodules or subcutaneous lesion PFSH Medical History Breast cancer History of right breast cancer Hypothyroid Multiple sclerosis Seizure Dyspnea on exertion Palpitations Asthma Subcutaneous mass Interstitial cystitis Surgical History Hx of elbow surgery Hx of rotator cuff surgery History of cystoscopy History of excision of mass (06/07/18) History of colonoscopy (06/2016) History of lumpectomy of right breast History of right breast biopsy History of tubal ligation History of ear surgery Family History Mother Colon cancer Father Bone cancer Lung cancer Brother Cancer of unknown origin Sister Leaky heart valve Brother CHF (congestive heart failure) Social History Household Members: None Housing: Apartment Alcohol intake: current Alcohol intake frequency: holidays/special occasions only Patient Tobacco Use Status: Former Tobacco user Tobacco use type: Cigarette Years Smoked: 8 Advance Directives Date on File: 09/13/14 Current occupational status: disabled Current occupation: rt hand Sexual orientation: Straight/Heterosexual Gender identity: Female Physical Exam Vital Signs: Last Vital Signs BP 110/66 03/07/25 11:41 BMI result Body Mass Index 21.2 Results AMB Urinalysis Dipstick UR Leukocytes Negative Last Edit by Shaila Dave CMA on 03/07/25 11:45 UR Nitrite Negative Last Edit by Shaila Dave CMA on 03/07/25 11:45 UR Urobilinogen Normal Last Edit by Shaila Dave CMA on 03/07/25 11:45 UR Protein Negative Last Edit by Shaila Dave CMA on 03/07/25 11:45 UR Ph 6.0 Last Edit by Shaila Dave CMA on 03/07/25 11:45 UR Blood Trace Last Edit by Shaila Dave CMA on 03/07/25 11:45 UR Specific Gwynn 1.025 Last Edit by Shaila Dave CMA on 03/07/25 11:45 UR Ketone Negative Last Edit by Shaila Dave CMA on 03/07/25 11:45 UR Bilirubin Negative Last Edit by Shaila Dave CMA on 03/07/25 11:45 UR Glucose Negative Last Edit by Shaila Dave CMA on 03/07/25 11:45 Results Reviewed Results Reviewed: Laboratory Last Values Urine pH (Clinic) 6.0 03/07/25 11:44 Specific Gwynn (Clinic) 1.025 03/07/25 11:44 Ur Protein (Clinic) Negative 03/07/25 11:44 Ur Ketones (Clinic) Negative 03/07/25 11:44 Urine Blood (Clinic) Trace 03/07/25 11:44 Urine Nitrite Negative 03/07/25 11:44 Urine Bilirubin (Clinic) Negative 03/07/25 11:44 Urobilinogen (Clinic) Normal 03/07/25 11:44 Leukocyte Esterase (Clinic) Negative 03/07/25 11:44 Urine Glucose (Clinic) Negative 03/07/25 11:44 Assessment & Plan Assessment & Plan (1) Pelvic pain: Code(s): R10.2 - Pelvic and perineal pain Category: Medical Plan: Discussed with the patient the results of the workup done including negative GC/chlamydia, urine dip showing microscopic hematuria and pelvic ultrasound/MRI. Differential diagnosis of virtual office assistant causes that have not be ruled out yet include but not limited to endometriosis, pelvic adhesions , or others. Recommended for the patient to see her PCP for further workup for non virtual office assistant causes; if the all the results are negative and the patient's pelvic pain is persistent, instructions given to patient to call back for further testing. Meanwhile, instructions were given the patient to go to emergency room or call in case of fever above 100.4, heavy vaginal bleeding, persistence or worsening of her pelvic pain. All questions answered, the patient verbalized understanding. (2) Pain in vulva: Code(s): R10.2 - Pelvic and perineal pain Category: Medical Plan: Discussed with the patient the finding on pelvic exam last visit and MRI, a message sent to radiologist review MRI and correlate the findings with ultrasound. Instructions given the patient to follow-up within 6 weeks for reinspection (3) Microscopic hematuria: Code(s): R31.29 - Other microscopic hematuria Category: Medical Plan: Urine dip showed persists microscopic hematuria, urine culture was negative. Since CT abdomen/pelvis was done recently, urology referral placed. Instructed the patient to call our office back in case a referral appointment is not scheduled, missed or canceled so that we will assist on rescheduling another appointment, the patient verbalized understanding agreed with the plan. (4) Dysplasia of cervix, low grade (LILY 1): Code(s): N87.0 - Mild cervical dysplasia Category: Medical Plan: Discussed with the patient the pathology results of the colposcopy biopsies & endocervical curettage ( mild dysplasia-LILY 1). Discussed with the patient the sensitivity specificity, positive and negative predictive value in detecting cervical cancer in addition discussed the regression, persistence and progression rates. Recommended co-testing in 12 months, if cytology and or HPV are abnormal will proceed was colposcopy biopsy and endocervical curettage, if lesions gets worse or stays persistent for 2 years will proceed with loop electric excision procedure. Instructions given to the patient to schedule a co test appointment in 1 year. All questions answered the patient verbalized understanding. Orders: Orders AMB Urinalysis Dipstick Today R31.29 - Other microscopic hematuria Referrals Urology Referral R31.29 - Other microscopic hematuria Coding Level of Care Code Est Pt Level 3 (38327) Diagnoses Pelvic pain R10.2 Pain in vulva R10.2 Microscopic hematuria R31.29 Dysplasia of cervix, low grade (LILY 1) N87.0
[2025-03-07 11:41] VITALS: BP 110/66; BMI 21.2
== END 2025-03-07 12:06 | disposition home or self-care (01) ==
LOC: HO.HWS 11:33
PROVIDERS: PCP Internal Medicine; Visit Provider Obstetrics & Gynecology
DX: R10.20 Pelvic and perineal pain unspecified side (principal); R31.29 Other microscopic hematuria; N87.0 Mild cervical dysplasia
CPT/HCPCS: 99213

== ENCOUNTER → 2025-03-07 11:32 | Outpatient (BNVA) | payer OTHER, SELFPAY | PROVIDERS: PCP Internal Medicine; Visit Provider Obstetrics & Gynecology | DX: N87.0 Mild cervical dysplasia (principal); R31.29 Other microscopic hematuria; R10.20 Pelvic and perineal pain unspecified side; Z98.890 Other specified postprocedural states | CPT/HCPCS: 81002; 99212 ==

== ENCOUNTER 2025-03-13 16:10 | Outpatient (REF) | payer OTHER, SELFPAY ==
--- NOTE | ~2025-03-13 | US_ITS ---
EXAMINATION: ULTRASOUND OF THE SOFT TISSUES OF THE RIGHT HAND CLINICAL INFORMATION: LOCALIZED SWELLING. COMPARISON: Radiographs of the right hand on December 19, 2024 FINDINGS: Targeted ultrasound was performed at the location of the concern in the right hand, at the base of the thumb (see manufacturing technologist's worksheet scanned into PACS). The palpable concern appears to correlate with a area that continues with the proximal aspect of the first metacarpal, probably area of degenerative changes at the level of the first carpometacarpal joint, associated with a small joint effusion. No abnormal local vascularity with color Doppler evaluation. Superficial soft tissues appear unremarkable. US/US soft tiss head and/or neck IMPRESSION: Area of clinical concern at the base of the thumb appears to correlate with degenerative changes at the first carpometacarpal joint. If clinical concern persists, recommend MRI. Electronically signed by: Ann Brown MD 03/13/2025 05:13 PM [facility]
--- OUTSIDE RECORDS SUMMARY | 2025-03-14 00:48 | XMS_ITS | Encounter Summary ---
Author Organization [employer] Address [address] [facility] 7t [place] [address] Care Team Providers Care Electric Razor Mechanic Name Role Phone Jimmy Boo MD Primary Care Provider [phone] Reason for Visit * Reason Onset Date Comments Nurse Triage 10/24/2023 Encounter Details Date Type Department Care Team ([facility] st Contact Info) Description 10/24/2023 Telephone [facility] CHC MED & PEDS [address] [place], [place] [phone] Jimmy Boo MD [address] [place] [address] Nurse Triage Social History Tobacco Use Types [...] past 12 months, has t he electric, [employer], oil or water [email or web address] threatened to shut off services in your [...] PCP. Please see notes, Please contact at [phone] * Telephone Encounter - Diane Garcia RN [...] a video call tomorrow when PCP opens [facility] schedule 10/25/23. Pt. Would [...] caller accepted this outcome Contact pt at [phone] documented in this encounter Plan of Treatment Upcoming Encounters Date Type Department Care Team (Late st Contact Info) Description 04/01/2025 2:15 PM EST Office Visit [facility] ADULT DENTAL [address] [place] [address] Raza Boo documented as of this encounter Visit Diagnoses Diagnosis Primary insomnia Persistent disorder of initiating or maintaining sleep documented in this encounter Care Teams Electric Razor Mechanic Relationship Specialty Start Date End Date Jimmy Boo MD [address] [place] [address] PCP - General Internal Medicine 05/03/13 documented as of this encounter
--- OUTSIDE RECORDS SUMMARY | 2025-03-14 00:48 | XMS_ITS | Encounter Summary ---
Author Organization [employer] Address [address] [place] [address] Care Team Providers Care Wire Stitcher Name Role Phone Jimmy Boo MD Primary Care Provider [phone] Reason for Visit * Reason Comments Med Refill Encounter Details Date Type Department Care Team ([facility] Contact Info) Description 12/02/2023 Refill [facility] CHC ADULT DENTAL [address] [place] [address] Luis Guzman DDS [address] [place] [address] Social History Tobacco Use Types Packs/Day Years [...] Upcoming Encounters Date Type Department Care Team ([facility] st Contact Info) Description 04/01/2025 2:15 PM EST Office Visit [facility] ADULT DENTAL [address] [place] [address] Raza Boo documented as of this encounter Visit Diagnoses Not on filedocumented in this encounter Care Teams Wire Stitcher Relationship Specialty Start Date End Date Jimmy Boo MD [address] [place] [address] PCP - General Internal Medicine 05/03/13 documented as of this encounter
--- OUTSIDE RECORDS SUMMARY | 2025-03-14 00:48 | XMS_ITS | Encounter Summary ---
Author Organization [employer] Address [address] [facility] 7[address] [place] [address] Care Team Providers Care Ammunition Assembly Laborer Name Role Phone Jimmy Boo MD Primary Care Provider [phone] Encounter Details Date Type Department Care Team ([facility] Contact Info) Description 11/28/2023 Orders Only [facility] CHC MED & PEDS [address] [place], [place] [phone] Jimmy Boo MD [address] [place] [address] Social History Tobacco Use Types Packs/Day Years [...] [facility] [address] [place] [address] Raza Boo documented as of this encounter Visit Diagnoses Not on filedocumented in this encounter Care Teams Ammunition Assembly Laborer Relationship Specialty Start Date End Date Jimmy Boo MD [address] [place] [address] PCP - General Internal Medicine 05/03/13 documented as of this encounter
--- OUTSIDE RECORDS SUMMARY | 2025-03-14 00:48 | XMS_ITS | Encounter Summary ---
Author Organization [employer] Address [address] [facility] 7t [place] [address] Care Team Providers Care Migratory Worker Name Role Phone Jimmy Boo MD Primary Care Provider [phone] Reason for Visit * Reason Comments Med Refill Encounter Details Date Type Department Care Team ([facility] st Contact Info) Description 12/28/2023 Refill [facility] MEDICINE [address] [place] [address] Jimmy Boo MD [address] [place] [address] Primary insomnia Social History Tobacco Use Types [...] t he electric, gas, oil or water [employer] threatened to shut off services in your [...] [facility] ADULT DENTAL [address] [place] [address] Raza Boo documented as of this encounter Visit Diagnoses Diagnosis Primary insomnia Persistent disorder of initiating or maintaining sleep documented in this encounter Care Teams Migratory Worker Relationship Specialty Start Date End Date Jimmy Boo MD [address] [place] [address] PCP - General Internal Medicine 05/03/13 documented as of this encounter
--- OUTSIDE RECORDS SUMMARY | 2025-03-14 00:48 | XMS_ITS | Encounter Summary ---
Author Organization [employer] Address [address] [facility] 7t [place] [address] Care Team Providers Care Patient Safety Tech Name Role Phone Jimmy Boo MD Primary Care Provider [phone] Reason for Visit * Reason Comments Med Refill Encounter Details Date Type Department Care Team ([facility] st Contact Info) Description 12/29/2023 Refill [facility] MEDICINE [address] [place] [address] Jimmy Boo MD [address] [place] [address] Primary insomnia Social History Tobacco Use Types [...] t he electric, gas, oil or water [employer] threatened to shut off services in your [...] Visit [facility] ADULT DENTAL [address] [place] [address] Raza Boo documented as of this encounter Visit Diagnoses Diagnosis Primary insomnia Persistent disorder of initiating or maintaining sleep documented in this encounter Care Teams Patient Safety Tech Relationship Specialty Start Date End Date Jimmy Boo MD [address] [place] [address] PCP - General Internal Medicine 05/03/13 documented as of this encounter
--- OUTSIDE RECORDS SUMMARY | 2025-03-14 00:48 | XMS_ITS | Encounter Summary ---
Author Organization [employer] Address [address] [facility] 7[address] [place] [address] Care Team Providers Care C Architect Name Role Phone Jimmy Boo MD Primary Care Provider [phone] Encounter Details Date Type Department Care Team ([facility] st Contact Info) Description 10/24/2023 Orders Only [facility] CHC MED & PEDS [address] [place], [place] [phone] Jimmy Boo MD [address] [place] [address] Herpes zoster without complication (Primary Dx) Social [...] t he electric, gas, oil or water [email or web address] threatened to shut off services in your [...] [facility] ADULT DENTAL [address] [place] [address] Raza Boo documented as of this encounter Procedures Procedure Name Priority Date/Time Associated Diagnosis Comments XR FINGERS 2+ VIEWS RIGHT Routine 11/23/2023 11:55 AM EDT documented in this encounter Results * XR Fingers 2+ Views Right (11/23/2023 11:55 AM EDT) Anatomical Region Laterality Modality Upper Extremities, Fingers Right Radio graphic Imaging 11/23/2023 11:5 5 AM EDT Narrative 11/27/2023 2:15 PM EDT [address] [address] XRay Report Signed Patient: Lakisha Hearn MR#: [id number] : 1965 Acct:[id number] Age/Sex: 58 / F ADM Date: 11/23/23 Loc: [facility] Attending Dr: Jimmy Boo MD Ordering Physician: Jimmy Boo MD Date of Service: 11/23/23 Procedure(s): XR finger RT min 2V Accession Number(s): [id number] cc: Jimmy Boo MD EXAMINATION: XR FINGER, [...] unremarkable. XR/XR finger RT min 2V IMPRESSION: Mvgk-ls-fvmabsjg osteoarthritis of the first carpometacarpal joint with degenerative changes slightly progressed compared with February 2019 Electronically signed by: Kuldip Dill MD 11/27/2023 02:13 PM EDT RP Dictated By: Kuldip Dill MD Signed By: <Electronically signed by Kuldip Dill MD in OV> 11/27/23 1413 DD/ 1155 TD/TT: 11/23/23 1205 Specialty Food Products Supervisor: STEVE Procedure Note Donotuseinterpreter, Image - 11/27/[address] [address] XRay Report Signed Patient: Lakisha Hearn AMR#: [id number] : 1965Acct:[id number] Age/Sex: 58 / FADM Date: 11/23/23 Loc: [facility] Attending Dr: Jimmy Boo MD Ordering Physician: Jimmy Boo MD Date of Service: 11/23/23 Procedure(s): XR finger RT min 2V Accession Number(s): [id number] cc: Jimmy Boo MD EXAMINATION: XR FINGER, [...] unremarkable. XR/XR finger RT min 2V IMPRESSION: Vdoh-rb-zczidiiy osteoarthritis of the first carpometacarpal joint with degenerative changes slightly progressed compared with February 2019 Electronically signed by: Kuldip Dill MD 11/27/2023 02:13 PM EDT RP Dictated By: Kuldip Dill MD Signed By: <Electronically signed by Kuldip Dill MD inOV> 11/27/23 1413 DD/ 1155 TD/TT: 11/23/23 1205 Specialty Food Products Supervisor: STEVE Jimmy Boo MD IMG XR PROCEDURES Final Res ult documented in this encounter Visit Diagnoses Diagnosis Herpes zoster without complication- Primary documented in this encounter Care Teams C Architect Relationship Specialty Start Date End Date Jimmy Boo MD [address] [place] [address] PCP - General Internal Medicine 05/03/13 documented as of this encounter
--- OUTSIDE RECORDS SUMMARY | 2025-03-14 00:49 | XMS_ITS | Encounter Summary ---
Author Organization [employer] Address [address] [place] [address] Care Team Providers Care Electric Meter Setter Name Role Phone Jimmy Boo MD Primary Care Provider [phone] Encounter Details Date Type Department Care Team ([facility] Contact Info) Description 08/30/2023 Orders Only [facility] CHC MED & PEDS [address] [place], [place] [phone] ProviderYnes MD Social History Tobacco Use Types [...] Visit [facility] ADULT DENTAL [address] [place] [address] Raza Boo documented as of this encounter [...] on filedocumented in this encounter Care Teams Electric Meter Setter Relationship Specialty Start Date End Date Jimmy Boo MD [address] [place] [address] PCP - General Internal Medicine 05/03/13 documented as of this encounter
--- OUTSIDE RECORDS SUMMARY | 2025-03-14 00:49 | XMS_ITS | Encounter Summary ---
Author Organization [employer] Address [address] [facility] [address] [place] [address] Care Team Providers Care Veterinary Toxicologist Name Role Phone Jimmy Boo MD Primary Care Provider [phone] Encounter Details Date Type Department Care Team (Latest Contact Info) Description 08/16/2018 Abstract [facility] CONVERSIONS Dental, Provider, DDS Social History [...] [facility] ADULT DENTAL [address] [place] [address] Raza Boo documented as of this encounter Visit Diagnoses Not on filedocumented in this encounter Care Teams Veterinary Toxicologist Relationship Specialty Start Date End Date Jimmy Boo MD [address] [place] [address] PCP - General Internal Medicine 05/03/13 documented as of this encounter
--- OUTSIDE RECORDS SUMMARY | 2025-03-14 00:49 | XMS_ITS | Encounter Summary ---
Author Organization [employer] Address [address] [facility] 7t [place] [address] Care Team Providers Care Retail Sales Associate Bilingual Name Role Phone Jimmy Boo MD Primary Care Provider [phone] Reason for Visit * Reason Onset Date Comments scripted toothpaste 12/24/2024 Encounter Details Date Type Department Care Team ([facility] Contact Info) Description 12/24/[address] [facility] ADULT DENTAL [address] [place] [address] Luis Guzman DDS [address] [place] [address] scripted toothpaste Social History Tobacco Use Types [...] encounter Miscellaneous Notes * Telephone Encounter - Zeoy Geronimo - 12/24/2024 11:18 AM EDT Patient called in for new script for toothpaste to be sent into pharmacy. Has already picked up theregular script as well as thee refills. documented in this encounter Plan of Treatment Upcoming Encounters Date Type Department Care Team (Late st Contact Info) Description 04/01/2025 2:15 PM EST Office Visit [facility] ADULT DENTAL [address] [place] [address] Raza Boo documented as of this encounter Visit Diagnoses Not on filedocumented in this encounter Additional Health Concerns Assessment Noted Time PHQ-9 Depression Total Score: 8 06/05/19 25 2:12 PM EST documented as of this encounter Care Teams Retail Sales Associate Bilingual Relationship Specialty Start Date End Date Jimmy Boo MD [address] [place] [address] PCP - General Internal Medicine 05/03/13 documented as of this encounter
--- OUTSIDE RECORDS SUMMARY | 2025-03-14 00:49 | XMS_ITS | Encounter Summary ---
Author Organization [employer] Address [address] [facility] [address] [place] [address] Care Team Providers Care Professor Of Forest Planning Name Role Phone Jimmy Boo MD Primary Care Provider [phone] Reason for Visit * Reason Onset Date Comments Nurse Triage 07/02/2024 Encounter Details Date Type Department Care Team ([facility] st Contact Info) Description 07/02/2024 Telephone [facility] MEDICINE [address] [place] [address] Jimmy Boo MD [address] [place] [address] Nurse Triage Social History Tobacco Use Types [...] Pt [place] [facility] [place] and has had some increased back pain since then. Pt denies redness, swelling at site but, is concerned as to the length of time having pain. ASK apt [facility] CHC today at [...] acuity questions The caller accepted this outcome. [phone] Pt had lumbar procedure on june 14. documented in this encounter Plan of Treatment Upcoming Encounters Date Type Department Care Team ([facility] st Contact Info) Description 04/01/2025 2:15 PM EST Office Visit [facility] ADULT DENTAL [address] [place] [address] Raza Boo documented as of this encounter Visit Diagnoses Not on filedocumented in this encounter Additional Health Concerns Assessment Noted Time PHQ-9 Depression Total Score: 8 06/05/19 25 2:12 PM EST documented as of this encounter Care Teams Professor Of Forest Planning Relationship Specialty Start Date End Date Jimmy Boo MD [address] [place] [address] PCP - General Internal Medicine 05/03/13 documented as of this encounter
--- OUTSIDE RECORDS SUMMARY | 2025-03-14 00:49 | XMS_ITS | Encounter Summary ---
Author Organization [employer] Address [address] 7t [place] [address] Care Team Providers Care Electronics Utility Worker Name Role Phone Jimmy Boo MD Primary Care Provider [phone] Reason for Visit * Reason Comments Med Refill Encounter Details Date Type Department Care Team ([facility] Contact Info) Description 10/03/2023 Refill [facility] ADULT D[facility]AL [address] [place] [address] Mary Jane Massey DMD Social History Tobacco [...] Visit [facility] ADULT DENTAL 505 [place] [address] Raza Boo documented as of this encounter Visit Diagnoses Not on filedocumented in this encounter Care Teams Electronics Utility Worker Relationship Specialty Start Date End Date Jimmy Boo MD 505 [place] [address] PCP - General Internal Medicine 05/03/13 documented as of this encounter
--- OUTSIDE RECORDS SUMMARY | 2025-03-14 00:49 | XMS_ITS | Encounter Summary ---
Author Organization [employer] Address [address] [place] [address] 7 [place] [address] Care Team Providers Care Buttermaker Helper Name Role Phone Jimmy Boo MD Primary Care Provider [phone] Reason for Visit * Reason Comments Med Refill Encounter Details Date Type Department Care Team ([facility] Contact Info) Description 06/24/2022 Refill [facility] MED & PEDS [address] [place] [address] Jimmy Boo MD 505 [place] [address] Primary insomnia Social History Tobacco Use Types [...] Encounters Date Type Department Care Team ([facility] Contact Info) Description 04/01/2025 2:15 PM EST Office Visit [facility] ADULT DENTAL 505 [place] [address] Raza Boo documented as of this encounter Visit Diagnoses Diagnosis Primary insomnia Persistent disorder of initiating or maintaining sleep documented in this encounter Care Teams Buttermaker Helper Relationship Specialty Start Date End Date Jmimy Boo MD [address] [place] [address] PCP - General Internal Medicine 05/03/13 documented as of this encounter
--- OUTSIDE RECORDS SUMMARY | 2025-03-14 00:49 | XMS_ITS | Encounter Summary ---
Author Organization [employer] Address [address] [facility] [address] 7t [place] [address] Care Team Providers Care Servicing Rep Name Role Phone Jimmy Boo MD Primary Care Provider [phone] Reason for Visit * Reason Comments Med Refill Encounter Details Date Type Department Care Team ([facility] Contact Info) Description 08/27/2023 Refill [facility] CH[facility] ADULT DENTAL [address] [place] [address] Mary Jane Massey DMD Social History Tobacco [...] Visit [facility] ADULT DENTAL 505 [place] [address] Raza Boo documented as of this encounter Visit Diagnoses Not on filedocumented in this encounter Care Teams Servicing Rep Relationship Specialty Start Date End Date Jimmy Boo MD 505 [place] [address] PCP - General Internal Medicine 05/03/13 documented as of this encounter
--- OUTSIDE RECORDS SUMMARY | 2025-03-14 00:49 | XMS_ITS | Encounter Summary ---
Author Organization [employer] Address [address] 7[address] [place] [address] Care Team Providers Care Production Troubleshooter Name Role Phone Jimmy Boo MD Primary Care Provider [phone] Reason for Visit * Reason Comments Med Refill Encounter Details Date Type Department Care Team ([facility] Contact Info) Description 11/03/2023 Refill [facility] ADULT DENTAL [address] [place] [address] Luis Guzman DDS [address] [place] [address] Social History Tobacco Use Types Packs/Day Years [...] Encounters Date Type Department Care Team ([facility] st Contact Info) Description 04/01/2025 2:15 PM EST Office Visit [facility] ADULT DENTAL 505 [place] [address] Raza Boo documented as of this encounter Visit Diagnoses Not on filedocumented in this encounter Care Teams Production Troubleshooter Relationship Specialty Start Date End Date Jimmy Boo MD 505 [place] [address] PCP - General Internal Medicine 05/03/13 documented as of this encounter
--- OUTSIDE RECORDS SUMMARY | 2025-03-14 00:49 | XMS_ITS | Encounter Summary ---
Author Organization [employer] Address [address] [place] [address] 7 [place] [address] Care Team Providers Care Anvil Seating Press Operator Name Role Phone Jimmy Boo MD Primary Care Provider [phone] Encounter Details Date Type Department Care Team ([facility] Contact Info) Description 06/21/2023 Orders Only [facility] [address] [place], [place] [phone] Jimmy Boo MD [address] [place], [place] [phone] Primary insomnia Social History Tobacco Use Types [...] Encounters Date Type Department Care Team ([facility] Contact Info) Description 04/01/2025 2:15 PM EST Office Visit [facility] [address] [place], [place] [phone] Raza Boo documented as of this encounter Visit Diagnoses Diagnosis Primary insomnia Persistent disorder of initiating or maintaining sleep documented in this encounter Care Teams Anvil Seating Press Operator Relationship Specialty Start Date End Date Jimmy Boo MD 505 [place] [address] PCP - General Internal Medicine 05/03/13 documented as of this encounter
--- OUTSIDE RECORDS SUMMARY | 2025-03-14 00:49 | XMS_ITS | Encounter Summary ---
Author Organization [employer] Address [address] [place] [address] 7 [place] [address] Care Team Providers Care Director Utilization Management Name Role Phone Jimmy Boo MD Primary Care Provider [phone] Encounter Details Date Type Department Care Team ([facility] Contact Info) Description 04/13/2023 Abstract [facility] ADULT DENTAL [address] [place] [address] Zahira Harris DDS [address] [place], [place] [phone] Social History Tobacco Use Types Packs/Day Years [...] Encounters Date Type Department Care Team ([facility] Contact Info) Description 04/01/2025 2:15 PM EST Office Visit [facility] ADULT DENTAL 505 [place] [address] Raza Boo documented as of this encounter Visit Diagnoses Not on filedocumented in this encounter Care Teams Director Utilization Management Relationship Specialty Start Date End Date Jimmy Boo MD [address] [place], [place] [phone] PCP - General Internal Medicine 05/03/13 documented as of this encounter
--- OUTSIDE RECORDS SUMMARY | 2025-03-14 00:49 | XMS_ITS | Clinical Summary ---
Author Organization [facility] Address [address] [place] [address] Phone Care Team Providers Care Gear Lapper Name Role Phone Jimmy Boo MD Primary Care Provider [phone] Allergies Active Allergy Reactions Criticality Noted Date [...] 02/06/2025 11:59 PM EST Hospital Encounter [facility] MRI [address] [place] [phone] Multiple sclerosis Discharge Disposition: Home or Self Care 02/06/2025 11:51 AM EST - 02/06/2025 11:59 PM EST Hospital Encounter [facility] MRI [address] [place] [phone] Multiple sclerosis Discharge Disposition: Home or Self Care 01/23/2025 11:40 AM EDT Office Visit [facility] [address] [facility] [address] [place] [address] Ton Prather MD Multiple sclerosis (Primary Dx); Other fatigue; Gait abnormality from Last 3 Months Surgical History Surgery Date Site/Laterality Comments OTHER SURGICAL HISTORY PROCEDURE: OK EXC BARTHOLINS GLAND/CYST; COMMENT: Vulva lipoma resection 06/2018 TUBAL LIGATION PROCEDURE: HISTORICAL TUBAL LIGATION OTHER SURGICAL HISTORY PROCEDURE: OK CYSTOURETHROSCOPY W/INTERNAL URETHROTOMY; COMMENT: urethral diverticulum OTHER [...] in female; COMMENT: Right IDC, pT1c N1a, ER/OK pos, Her2 neg, s/p partial mastectomy and [...] on file Sexual Orientation Not on file Last Filed Vital Signs Vital Sign Reading [...] Description 03/27/2025 11:00 AM EST Office Visit [facility] [address] [facility] [address] [place] [address] Ton Prather MD [address] [place] [address] Health Maintenance Due Date Last Done Comments [...] Signed Date: 02/10/2025 13:21 ET Workstation ID: [id number] Transcribed By: Self Edit Transcribed Date: 02/10/2025 [...] Signed Date: 02/10/2025 13:21 ET Workstation ID: [id number] Transcribed By: Self Edit Transcribed Date: 02/10/2025 09:04 ET Ton Prather MD [facility] [place] PROCEDURES Final Result * MR Cervical [...] Signed Date: 02/10/2025 13:37 ET Workstation ID: [id number] Transcribed By: Self Edit Transcribed Date: 02/10/2025 [...] Signed Date: 02/10/2025 13:37 ET Workstation ID: [id number] Transcribed By: Self Edit Transcribed Date: 02/10/2025 13:21 ET Ton Prather MD [facility] [place]ED[place] Final Result * Pap smear (05/10/2022) 05/10/2022 Narrative HISTORICAL TESTING LAB RESULTING AGENCY - 05/21/2022 11:11 AM EST [id number] THINPREP PAP, IMAGED: ATYPICAL SQUAMOUS CELLS OF [...] Most Recently Relevant to Health Maintenance Insurance [facility] MEDICARE Member Subscriber Plan / Payer (Ef fective 2022-Present) Name:LAKISHA STEVENS Relation to Subscriber:Self Name:Lakisha Stevens Payer ID:[id number] Group ID:[id number] Type:Not on file Address: [place] [address] [address] [address] Care Teams Gear Lapper Relationship Specialty Start Date End Date Jimmy Boo MD [address] [place] [address] PCP - General Internal Medicine 11/23/19
--- OUTSIDE RECORDS SUMMARY | 2025-03-14 00:49 | XMS_ITS | Encounter Summary ---
Author Organization [employer] [facility] Address [address] [place] [address] 7 [place] [address] Care Team Providers Care Multiple Drum Sander Name Role Phone Jimmy Boo MD Primary Care Provider [phone] Encounter Details Date Type Department Care Team (Late Contact Info) Description 05/16/2023 Abstract [facility] ADULT DENT[facility] [address] [place] [address] Mary Jane Massey DMD Social History Tobacco [...] [facility] [address] [place] [address] Raza Boo documented as of this encounter Visit Diagnoses Not on filedocumented in this encounter Care Teams Multiple Drum Sander Relationship Specialty Start Date End Date Jimmy Boo MD 505 [place] [address] PCP - General Internal Medicine 05/03/13 documented as of this encounter
--- OUTSIDE RECORDS SUMMARY | 2025-03-14 00:49 | XMS_ITS | Encounter Summary ---
Author Organization [employer] Address [address] [facility] 7t [place] [address] Care Team Providers Care Major Gifts Officer Name Role Phone Jimmy Boo MD Primary Care Provider [phone] Reason for Visit * Reason Onset Date Comments Med Refill 07/13/2023 Encounter Details Date Type Department Care Team (Late Contact Info) Description 07/13/2023 Refill [facility] ADULT [facility] [address] [place] [address] Luis Guzman DDS [address] [place] [address] Social History Tobacco Use Types Packs/Day Years [...] Miscellaneous Notes * Telephone Encounter - Luis Guzmna DDS - 07/19/2023 9:31 AM EDT Approving, but needs appt for additional refills. documented in this encounter Plan of Treatment Upcoming Encounters Date Type Department Care Team ([facility] Contact Info) Description 04/01/2025 2:15 PM EST Office Visit [facility] ADULT DENTAL [address] [place] [address] Raza Boo documented as of this encounter Visit Diagnoses Not on filedocumented in this encounter Care Teams Major Gifts Officer Relationship Specialty Start Date End Date Jimmy Boo MD [address] [place] [address] PCP - General Internal Medicine 05/03/13 documented as of this encounter
--- OUTSIDE RECORDS SUMMARY | 2025-03-14 00:49 | XMS_ITS | Encounter Summary ---
Author Organization [employer] Address [address] [place] [address] 7 [place] [address] Care Team Providers Care Resource Development Director Name Role Phone Jimmy Boo MD Primary Care Provider [phone] Reason for Referral * Consultation (Routine) - Closed Specialty Diagnoses / Procedures Referred By Contac t Referred To Contact Neurology Diagnoses Chronic tension-type headache, not intractable Jimmy Boo MD [address] [place] [address] Phone: tel: fax: Rory Garber MD [address] [place] [address] [place] [address] Phone: tel: fax: Referral ID Status Reason Start Date Expiration Date V isits Requested Visits Authorized [id number] Closed Specialty Services Required 03/18/2024 03/18/2025 1 1 Encounter Details Date Type Department Care Team (Late st Contact Info) Description 03/18/2024 Orders Only [facility] MED & PEDS [address] [place], [place] [phone] Jimmy Boo MD [address] [place], [place] [phone] Chronic tension-type headache, not intractable (Primary Dx) Social History Tobacco Use Types Packs/Day Years Used Date Smoking Tobacco: Former Cigarettes Passive Smoke Exposure: Past Smokeless Tobacco: Never Alcohol Use Standard Drinks/Week Comments Defer 0 (1 standard drink = 0.6 oz pur e alcohol) Housing Stability Answer Date Recorded What is your housing situation today? I have margoht olvera 08/23/[address] you [...] EST Office Visit [facility] ADULT DENT[facility] [address] [place] [address] Raza Boo Scheduled Referrals Name Type Priority Associated Diagnoses Orde r Schedule Referral to Neurology Outpatient Referral Routine Chronic tension-type headache, not intractable Expected: 03/18/2024 (Approximate), Expires: 03/18/2025 documented as of this encounter Visit Diagnoses Diagnosis Chronic tension-type headache, not intractable- Primary Chronic tension type headache documented in this encounter Care Teams Resource Development Director Relationship Specialty Start Date End Date Jimmy Boo MD [address] [place] [address] PCP - General Internal Medicine 05/03/13 documented as of this encounter
--- OUTSIDE RECORDS SUMMARY | 2025-03-14 00:49 | XMS_ITS | Data Portability ---
Author Organization [email or web address] [facility] Address [address] [place] [address] Care Team Providers Care Registered Physical Therapist Name Role Phone Unavailable OTHER HIM CCA OTHER Assessment Encounter Date Assessment Date Assessment LastModified by Organization Details LastModified Time 04/10/2024 04/10/2024 I provided real -time medical direction via phone for this encounter, and was available for additional phone based assistance as needed. I have reviewed the Assessment and Plan as documented by the Lusterer. We discussed the diagnostic uncertainty of home [...] to call 911- verbalized understanding of instruction [email or web address] Not available 04/10/2024 17:16:10 Plan of Treatment Reminders Order Date Submit Date Provider Last Modified By Organization Details Last Modified Time Details Appointments None recorded. Lab None recorded. Referral None recorded. Procedures None recorded. Surgeries None recorded. Imaging None recorded. Medication Orders prednisone 20 mg tablet 2024 025 [email or web address] Not available 14:39:14 prednisone 20 mg tablet [address] [facility][id number], [address] [facility] [place], [address], 14:39:17 Patient TargetsNo targets recorded. Patient InstructionsNo instructions recorded. Reason for Referral None Reported. Medical Equipment None Reported. Allergies Allergen ID Allergen Name Allergen Category Reaction Reaction Severity Criticality Documentation Date Start Date Code Code System Note Provider Name and Address Organization Details Recorded Time 62186 topiramat e medicatio n Not available Not available Not available 04/10/2024 41392 RxNorm Not Available [facility] - production 10:14:26 78373 Bactrim medicatio n Not available Not available Not available 04/10/2024 53969 9 RxNorm Not Available [facility] - production 10:14:26 98605 Iodinated contrast media (substanc e) medicatio n Not available Not available Not available 04/10/2024 89158 2003 SNOMED Cara Bauer MD [address] [place] [address],[address], [place], [address], [employer] 14:33:28 09684 tamoxifen medicatio n Not available Not available Not available 04/10/2024 34464 RxNorm Cara Bauer MD [address] [place] [address],[address], [place], [address], [employer] 14:33:55 Medications Name Sig Start Date Stop [...] Vitals Date Recorded Body temperature Oxygen saturation Body height Heart rate Respiratory rate Body weight Systolic And Diastolic Provider Name and Address Organization Details Last Updated DateTime 5 98.1 [degF] 99 % 149.86 cm 80 /min 18 /min 90978.1 2 g 147/94 mm[Hg] Not Available [facility] [...] ICD10 Code Diagnosis IMO Codes Diagnosis Note [id number] Cara Bauer MD Main - [facility] [address] [place] [phone] 04/10/2024 14:14:38 04/10/2024 18:10:27 Atypical facial pain 93299135 G50.1 Possible trigeminal neuralgia/ discussed gabapentin with [...] Gill Member ID Guarantor Name 04/28/2024 1 [facility] - DOS ON OR AFTER 2022 - DUAL ELIGIBLE - NURSING HOME OPTIONS AND ONE CARE (MEDICARE REPLACEMENT/AD VANTAGE - HMO) Lakisha Hearn [id number] Lakisha Hearn Notes Date Note Type Note Provider Name and Address Organization Details Recorded Time 04/10/2024 text/html ROS as noted in the HPI HPI: Patient with complaints of right sided face pain for 4-5 days. No fever, slight headache. Pain right jainism forehead eye and face.Recovered COVID March 2024 ...................... ...................... ...................... ...................... ...................... ...................... ......... [facility] Nurse Triage Notes (Malia Kent - RN): Chief Complaints: Headache PMH: Multiple Sclerosis, Cigarette Smoker, Gastroesophageal Reflux Disease (GERD) PMH Reviewed at 04/10/2024 10:14 Allergies Reviewed at 04/10/2024 10:14 Comments: HPI reviewed Allergies BEE ...................... ...................... ...................... ...................... ...................... ...................... ......... Lusterer Note From Kuldip Kidd: SC1 dispatched to [...] ...................... ...................... ...................... ...................... ...................... ...................... ......... [facility] Consulted: Cara Bauer ...................... ...................... ...................... ...................... ...................... ...................... ......... Disposition: Fulfilled SEGMD: Patient clearly reported to me she has a headache when she gets up in the am for months/ she describes that she has pain from her right lateral orbit to her right temporal /parietal area-it feels like [id number] with a sharp component, but it does [...] not a diabetic. Cara Bauer MD [address] [facility], [place], [address], [facility] - [facility], TAMIKO 04/10/2024 17:16:13 OBGyn Episode No OBEpisode recorded.
--- OUTSIDE RECORDS SUMMARY | 2025-03-14 00:49 | XMS_ITS | Encounter Summary ---
Author Organization [employer] Address [address] [facility] 7t [place] [address] Care Team Providers Care Steep Tender Name Role Phone Jimmy Boo MD Primary Care Provider [phone] Encounter Details Date Type Department Care Team ([facility] Contact Info) Description 06/25/2022 Orders Only [facility] MED & PEDS [address] [place], [place] [address] Gray Barnes MD [address] [place], [place] [phone] Primary insomnia; SOB (shortness of breath) Social [...] Visit [facility] ADULT DENTAL [address] [place] [address] Raza Boo documented as of this encounter Visit Diagnoses Diagnosis Primary insomnia Persistent disorder of initiating or maintaining sleep SOB (shortness of breath) Shortness of breath documented in this encounter Care Teams Steep Tender Relationship Specialty Start Date End Date Jimmy Boo MD [address] [place] [address] PCP - General Internal Medicine 05/03/13 documented as of this encounter
--- OUTSIDE RECORDS SUMMARY | 2025-03-14 00:49 | XMS_ITS | Encounter Summary ---
Author Organization [employer] Address [address] [facility] 7t [place] [address] Care Team Providers Care Scan Coordinator Name Role Phone Jimmy Boo MD Primary Care Provider [phone] Reason for Visit * Reason Onset Date Comments Dr. Guzman refill Sodium Flouride 5000 cream too thpaste 07/12/2024 Encounter Details Date Type Department Care Team ([facility] Contact Info) Description 07/12/[address] [facility] ADULT DENTAL [address] [place] [address] Luis Guzman DDS [address] [place] [address] Dr. Guzman refill Sodium Flouride 5000 cream [...] [facility] ADULT [facility] [address] [place] [address] Raza Boo documented as of this encounter Visit Diagnoses Not on filedocumented in this encounter Additional Health Concerns Assessment Noted Time PHQ-9 Depression Total Score: 8 06/05/19 25 2:12 PM EST documented as of this encounter Care Teams Scan Coordinator Relationship Specialty Start Date End Date Jimmy Boo MD [address] [place] [address] PCP - General Internal Medicine 05/03/13 documented as of this encounter
--- OUTSIDE RECORDS SUMMARY | 2025-03-14 00:49 | XMS_ITS | Encounter Summary ---
Author Organization [employer] Address [address] [place] [address] 7 [place] [address] Care Team Providers Care Special Needs Nanny Name Role Phone Jimmy Boo MD Primary Care Provider [phone] Reason for Visit * Reason Comments Med Refill Encounter Details Date Type Department Care Team ([facility] Contact Info) Description 06/19/2022 Refill [facility] MED & PEDS [address] [place] [address] Jimmy Boo MD [address] [place] [address] Primary insomnia Social History Tobacco Use Types [...] Visit [facility] ADULT DENTAL [address] [place] [address] Raza Boo documented as of this encounter Visit Diagnoses Diagnosis Primary insomnia Persistent disorder of initiating or maintaining sleep documented in this encounter Care Teams Special Needs Nanny Relationship Specialty Start Date End Date Jimmy Boo MD [address] [place] [address] PCP - General Internal Medicine 05/03/13 documented as of this encounter
--- OUTSIDE RECORDS SUMMARY | 2025-03-14 00:49 | XMS_ITS | Encounter Summary ---
Author Organization [employer] Address [address] [facility] 7 [place] [address] Care Team Providers Care Tenter Frame Back Tender Name Role Phone Jimmy Boo MD Primary Care Provider [phone] Reason for Visit * Reason Onset Date Comments Medication Question 06/21/2022 Encounter Details Date Type Department Care Team ([facility] Contact Info) Description 06/21/2022 Telephone [facility] MED & PEDS [address] [place], [place] [phone] Jimmy Boo MD [address] [place], [place] [phone] Medication Question Social History Tobacco Use Types [...] out. Pt requesting Rx be sent to [facility] pharmacy on [facility]. * Telephone Encounter - Sangeetha Glenys - [...] Office Visit [facility] ADULT DENTAL [address] [place] [address] Raza Boo documented as of this encounter Visit Diagnoses Diagnosis Primary insomnia Persistent disorder of initiating or maintaining sleep SOB (shortness of breath) Shortness of breath documented in this encounter Care Teams Tenter Frame Back Tender Relationship Specialty Start Date End Date Jimmy Boo MD [address] [place] [address] PCP - General Internal Medicine 05/03/13 documented as of this encounter
--- OUTSIDE RECORDS SUMMARY | 2025-03-14 00:49 | XMS_ITS | Patient Health Record ---
Author Organization [facility] Address [address] [place] [address] Care Team Providers Care Reference Data Expert Name Role Phone Jimmy Boo M.D. Primary Care Provider Un available Keyshawn Lopez Unavailable [phone] Allergies Allergen (clinical drug ingredient) Drug/Non Drug [...] Problem Screening for malignant neoplasm of colon (905723662) Encounter for screening for malignant neoplasm of colon (Z12.11) Active confirmed Problem Screening for malignant neoplasm of rectum (470294918) Encounter for screening for malignant neoplasm of rectum (Z12.12) Active confirmed Problem Family History of Cancer of Colon (Situation) (130213960) Family history of colon cancer (Z80.0) Active confirmed Problem Constipation (66156350) Constipation, unspecified constipation type (K59.00) Active confirmed Problem Diverticulosis of colon (931805580) Diverticulosis of colon (K57.30) Active confirmed Plan Of Treatment Future Test Test Name Order Date COLONOSCOPY 12/19/2015 COLONOSCOPY 03/17/2022 Insurance Providers Payer Name Payer Address Payer Phone Subscriber Number Group Number Insured Name Patient Relationship to Insured Coverage Start Date Coverage End Date [facility] [address] [place] [address] [id number] PATRICIA DOOLEY Self - patient is the insured Medical (General) History Medical History History ICD Code Epilepsy--off seizure meds Multiple sclerosis Vertigo Denies AR,DM,CVA,Lung disease,renal dise ase Hx of breast cancer 2011--ri ght--lumpectomy, XRT , chemo--sees Dr. Samuel at [facility] x 3 Neg. colonoscopy in 2005, 06/2011, and 2016 Surgical History Surgery Date(Month/Year) Urethral diverticulum Right arm surgery BTL Exploratory laparoscopy Ear surgery for tubes Shoulder surgery--right shoulder 09/2015 Right breast cancer --lumpectomy Bone removed from left thumb Carpal tunnel on the left Cystoscopy 02/2022
--- OUTSIDE RECORDS SUMMARY | 2025-03-14 00:49 | XMS_ITS | Encounter Summary ---
Author Organization [employer] Address [address] [place] [address] 7 [place] [address] Care Team Providers Care Cherry Picker Operator Name Role Phone Jimmy Boo MD Primary Care Provider [phone] Reason for Referral * Imaging (Routine) - Authorized Specialty Diagnoses / Procedures Referred By Lonny t Referred To Contact Radiology Diagnoses Subcutaneous nodule Chronic pain of right thumb Procedures US SOFT TISSUE Jimmy Boo MD [address] [place] [address] Phone: tel: fax: [address] [address] Phone: tel: fax: Referral ID Status Reason Start Date Expiration Date V isits Requested Visits Authorized [id number] Authorized 01/01/2025 01/01/2026 1 1 * Consultation (Urgent) - Closed Specialty Diagnoses / Procedures Referred By Lonny t Referred To Contact Obstetrics and Gynecology Diagnoses Subcutaneous nodule Jimmy Boo MD [address] [place] [address] Phone: tel: fax: Zack Gray MD [address] [place] [address] [place] [address] Phone: tel: fax: Referral ID Status Reason Start Date Expiration Date V isits Requested Visits Authorized [id number] Closed Specialty Services Required 12/31/2024 12/31/2025 1 1 Encounter Details Date Type Department Care Team ([facility] st Contact Info) Description 12/31/2024 Orders Only [facility] CHC MED & PEDS [address] [place] [address] Jimmy Boo MD [address] [place] [address] Subcutaneous nodule (Primary Dx); Chronic pain of [...] 2:15 PM EST Office Visit [facility] CHC ADULT DENTAL [address] [place] [address] Raza Boo Scheduled Orders Name Type Priority [...] documented as of this encounter Care Teams Cherry Picker Operator Relationship Specialty Start Date End Date Jimmy Boo MD [address] [place] [address] PCP - General Internal Medicine 05/03/13 documented as of this encounter
--- OUTSIDE RECORDS SUMMARY | 2025-03-14 00:49 | XMS_ITS | Encounter Summary ---
Author Organization [employer] Address 75 [facility] 7 [place] [address] Care Team Providers Care Baker Operator Automatic Name Role Phone Jimmy Boo MD Primary Care Provider [phone] Encounter Details Date Type Department Care Team ([facility] Contact Info) Description 07/07/2023 Orders Only [facility] MED & PEDS [address] [place], [place] [phone] Jimmy Boo MD [address] [place] [address] Diverticulosis of colon (Primary Dx) Social History [...] Visit [facility] ADULT DENTAL [address] [place] [address] Raza Boo Scheduled Orders Name Type Priority Associated Diagnoses Orde r Schedule Fecal Globin by Immunochemistry Lab Routine Diverticulosis of colon Expected: 07/07/2023 (Approximate), Expires: 07/06/2024 Urinalysis Complete Lab Routine Diverticulosis of colon Expected: 07/07/2023 (Approximate), Expires: 07/06/2024 documented as of this encounter Visit Diagnoses Diagnosis Diverticulosis of colon- Primary Diverticulosis of colon (without mention of hemorrhage) documented in this encounter Care Teams Baker Operator Automatic Relationship Specialty Start Date End Date Jimmy Boo MD [address] [place] [address] PCP - General Internal Medicine 05/03/13 documented as of this encounter
--- OUTSIDE RECORDS SUMMARY | 2025-03-14 00:49 | XMS_ITS | Encounter Summary ---
Author Organization [employer] Address 75 [facility] 7t [place] [address] Care Team Providers Care Gold Wheel Blocker And Polisher Name Role Phone Jimmy Boo MD Primary Care Provider [phone] Encounter Details Date Type Department Care Team ([facility] st Contact Info) Description 04/25/2024 Orders Only [facility] CHC MED & PEDS [address] [place], [place] [phone] Jimmy Boo MD [address] [place] [address] Primary insomnia Social History Tobacco Use Types [...] Visit [facility] ADULT DENTAL [address] [place] [address] Raza Boo documented as of this encounter Visit Diagnoses Diagnosis Primary insomnia Persistent disorder of initiating or maintaining sleep documented in this encounter Care Teams Gold Wheel Blocker And Polisher Relationship Specialty Start Date End Date Jimmy Boo MD [address] [place] [address] PCP - General Internal Medicine 05/03/13 documented as of this encounter
--- OUTSIDE RECORDS SUMMARY | 2025-03-14 00:49 | XMS_ITS | Encounter Summary ---
Author Organization [employer] Address 75 [facility] 7t [place] [address] Care Team Providers Care Director Validation Name Role Phone Jimmy Boo MD Primary Care Provider [phone] Reason for Visit * Reason Comments Med Refill Encounter Details Date Type Department Care Team ([facility] Contact Info) Description 03/16/2022 Refill [facility] MEDICINE [address] [place] [address] Jimmy Boo MD [address] [place], [place] [phone] Insomnia, unspecified Social History Tobacco Use Types [...] Description 04/01/2025 2:15 PM EST Office Visit [facility] CHC ADULT DENTAL 505 [place] [address] Raza Boo documented as of this encounter Visit Diagnoses Diagnosis Insomnia, unspecified documented in this encounter Care Teams Director Validation Relationship Specialty Start Date End Date Jimmy Boo MD [address] [place] [address] PCP - General Internal Medicine 05/03/13 documented as of this encounter
--- OUTSIDE RECORDS SUMMARY | 2025-03-14 00:49 | XMS_ITS | Encounter Summary ---
Author Organization [employer] [facility] Address 75 [facility] 7 [place] [address] Care Team Providers Care Nurse Technician Name Role Phone Jimmy Boo MD Primary Care Provider [phone] Encounter Details Date Type Department Care Team (Latest Contact Info) Description 03/14/2020 Abstract [facility] CONVERSIONS Dental, Provider, DDS Social History Tobacco [...] [facility] ADULT DENTAL [address] [place] [address] Raza Boo documented as of this encounter Visit Diagnoses Not on filedocumented in this encounter Care Teams Nurse Technician Relationship Specialty Start Date End Date Jimmy Boo MD [address] [place] [address] PCP - General Internal Medicine 05/03/13 documented as of this encounter
--- OUTSIDE RECORDS SUMMARY | 2025-03-14 00:49 | XMS_ITS | Encounter Summary ---
Author Organization [employer] Address [address] [facility] [address] 7t [place] [address] Care Team Providers Care Inspector Plumbing Name Role Phone Jimmy Boo MD Primary Care Provider [phone] Encounter Details Date Type Department Care Team ([facility] st Contact Info) Description 02/11/2025 Orders Only [facility] CHC MED & PEDS [address] [place], [place] [phone] Provider, MD Ynes Social History Tobacco Use [...] Upcoming Encounters Date Type Department Care Team ([facility] st Contact Info) Description 04/01/2025 2:15 PM EST Office Visit [facility] ADULT DENTAL 505 [place] [address] Raza Boo documented as of this encounter [...] documented as of this encounter Care Teams Inspector Plumbing Relationship Specialty Start Date End Date Jimmy Boo MD 505 [place] [address] PCP - General Internal Medicine 05/03/13 documented as of this encounter
--- OUTSIDE RECORDS SUMMARY | 2025-03-14 00:49 | XMS_ITS | Encounter Summary ---
Author Organization [employer] Address [address] [facility] [address] 7t [place] [address] Care Team Providers Care Field Hockey And Lacrosse Coach Name Role Phone Jimmy Boo MD Primary Care Provider [phone] Reason for Visit * Reason Comments Med Refill Encounter Details Date Type Department Care Team ([facility] Contact Info) Description 07/27/2024 Refill [facility] CHC ADULT DENTAL [address] [place] [address] Luis Guzman DDS [address] [place] [address] Social History Tobacco Use Types Packs/Day Years [...] Visit [facility] ADULT DENTAL 505 [place] [address] Raza Boo documented as of this encounter Visit Diagnoses Not on filedocumented in this encounter Additional Health Concerns Assessment Noted Time PHQ-9 Depression Total Score: 8 06/05/19 25 2:12 PM EST documented as of this encounter Care Teams Field Hockey And Lacrosse Coach Relationship Specialty Start Date End Date Jimmy Boo MD 505 [place] [address] PCP - General Internal Medicine 05/03/13 documented as of this encounter
--- OUTSIDE RECORDS SUMMARY | 2025-03-14 00:49 | XMS_ITS | Encounter Summary ---
Author Organization [employer] Address [address] [facility] 7 [place] [address] Care Team Providers Care Sap Basis Architect Name Role Phone Jimmy Boo MD Primary Care Provider [phone] Encounter Details Date Type Department Care Team ([facility] Contact Info) Description 08/17/2022 Abstract [facility] MED & PEDS [address] [place], [place] [phone] Jimmy Boo MD [address] [place] [address] Social History Tobacco Use Types Packs/Day Years [...] Date Type Department Care Team ([facility] Contact Info) Description 04/01/2025 2:15 PM EST Office Visit [facility] ADULT DENTAL [address] [place] [address] Raza Boo documented as of this encounter [...] EDT Recommended 5 year follow up ( [facility]) us Historical Provider HEALTH MAINTENANCE Final Result documented in this encounter Visit Diagnoses Not on filedocumented in this encounter Care Teams Sap Basis Architect Relationship Specialty Start Date End Date Jimmy Boo MD [address] [place] [address] PCP - General Internal Medicine 05/03/13 documented as of this encounter
--- OUTSIDE RECORDS SUMMARY | 2025-03-14 00:49 | XMS_ITS | Encounter Summary ---
Author Organization [employer] Address 75 [facility] 7t [place] [address] Care Team Providers Care Collective Bargaining Specialist Name Role Phone Jimmy Boo MD Primary Care Provider [phone] Reason for Visit * Reason Onset Date Comments Med Refill 02/19/2025 Encounter Details Date Type Department Care Team ([facility] st Contact Info) Description 02/19/2025 Telephone [facility] MEDICINE [address] [place] [address] Jimmy Boo MD [address] [place] [address] Med Refill Social History Tobacco Use Types [...] [facility] ADULT DENTAL [address] [place] [address] Raza Boo documented as of this encounter Visit Diagnoses Not on filedocumented in this encounter Additional Health Concerns Assessment Noted Time PHQ-9 Depression Total Score: 8 06/05/19 25 2:12 PM EST documented as of this encounter Care Teams Collective Bargaining Specialist Relationship Specialty Start Date End Date Jimmy Boo MD [address] [place] [address] PCP - General Internal Medicine 05/03/13 documented as of this encounter
--- OUTSIDE RECORDS SUMMARY | 2025-03-14 00:49 | XMS_ITS | Encounter Summary ---
Author Organization [employer] Address [address] [facility] 7 [place] [address] Care Team Providers Care Sec Accountant Name Role Phone Jimmy Boo MD Primary Care Provider [phone] Reason for Visit * Reason Comments Med Refill Encounter Details Date Type Department Care Team ([facility] Contact Info) Description 04/22/2022 Refill [facility] MEDICINE [address] [place], [place] [phone] Jimmy Boo MD [address] [place], [place] [phone] SOB (shortness of breath) Social History Tobacco [...] Description 04/01/2025 2:15 PM EST Office Visit [facility] CHC ADULT DENTAL [address] [place] [address] Raza Boo documented as of this encounter Visit Diagnoses Diagnosis SOB (shortness of breath) Shortness of breath documented in this encounter Care Teams Sec Accountant Relationship Specialty Start Date End Date Jimmy Boo MD [address] [place] [address] PCP - General Internal Medicine 05/03/13 documented as of this encounter
--- OUTSIDE RECORDS SUMMARY | 2025-03-14 00:50 | XMS_ITS | Encounter Summary ---
Author Organization [employer] Address [address] [place] [address] 7 [place] [address] Care Team Providers Care Paste Thinner Name Role Phone Jimmy Boo MD Primary Care Provider +1 [phone] Encounter Details Date Type Department Care Team ([facility] Contact Info) Description 03/02/2023 Abstract [facility] ADULT DENTAL [address] [place] [address] Zahira Harris DDS [address] [place], [place] [phone] Social History Tobacco Use Types Packs/Day Years [...] [facility] ADULT DENTAL [address] [place] [address] Raza Boo documented as of this encounter Visit Diagnoses Not on filedocumented in this encounter Care Teams Paste Thinner Relationship Specialty Start Date End Date Jimmy Boo MD [address] [place], [place] [phone] PCP - General Internal Medicine 05/03/13 documented as of this encounter
--- OUTSIDE RECORDS SUMMARY | 2025-03-14 00:50 | XMS_ITS | Encounter Summary ---
Author Organization [employer] Address [address] [facility] 7t [place] [address] Care Team Providers Care Camera Tuning Engineer Name Role Phone Jimmy Boo MD Primary Care Provider [phone]- [phone] Reason for Visit * Reason Onset Date Comments case back from lab?? 10/19/2022 Encounter Details Date Type Department Care Team ([facility] Contact Info) Description 10/19/2022 Telephone [facility] ADULT DENTAL [address] [place] [address] Luis Guzman, DDS [address] [place] [address] case back from lab?? Social History Tobacco [...] [facility] ADULT DENTAL [address] [place] [address] Raza Boo documented as of this encounter Visit Diagnoses Not on filedocumented in this encounter Care Teams Camera Tuning Engineer Relationship Specialty Start Date End Date Jimmy Boo MD [address] [place] [address] PCP - General Internal Medicine 05/03/13 documented as of this encounter
--- OUTSIDE RECORDS SUMMARY | 2025-03-14 00:50 | XMS_ITS | Encounter Summary ---
Author Organization [employer] Address [address] [place] [address] 7 [place] [address] Care Team Providers Care Printing Shop Supervisor Name Role Phone Jimmy Boo MD Primary Care Provider [phone] Reason for Visit * Reason Comments Med Refill Encounter Details Date Type Department Care Team ([facility] Contact Info) Description 06/22/2022 Refill [facility] MED & PEDS [address] [place], [place] [phone] Jimmy Boo MD [address] [place] [address] Primary insomnia Social History Tobacco Use Types [...] Upcoming Encounters Date Type Department Care Team ([facility] Contact Info) Description 04/01/2025 2:15 PM EST Office Visit [facility] ADULT DENTAL [address] [place] [address] Raza Boo documented as of this encounter Visit Diagnoses Diagnosis Primary insomnia Persistent disorder of initiating or maintaining sleep documented in this encounter Care Teams Printing Shop Supervisor Relationship Specialty Start Date End Date Jimmy Boo MD [address] [place] [address] PCP - General Internal Medicine 05/03/13 documented as of this encounter
--- OUTSIDE RECORDS SUMMARY | 2025-03-14 00:50 | XMS_ITS | Encounter Summary ---
Author Organization [employer] Address 75 [facility] 7t [place] [address] Care Team Providers Care Auto Apprentice Mechanic Name Role Phone Jimmy Boo MD Primary Care Provider [phone] Encounter Details Date Type Department Care Team ([facility] Contact Info) Description 03/13/2025 Orders Only [facility] CHC MED & PEDS [address] [place], [place] [phone] Jimmy Boo MD [address] [place] [address] Social History Tobacco Use Types Packs/Day Years [...] [facility] ADULT DENTAL [address] [place] [address] Raza Boo documented as of this encounter Procedures Procedure Name Priority Date/Time Associated Diagnosis Comments US HEAD NECK SOFT TISSUE Routine 03/13/2025 4:30 PM EST documented in this encounter Results * US Head Neck Soft Tissue (03/13/2025 4:30 PM EST) Anatomical Region Laterality Modality Head, Neck Ultrasound 03/13/2025 4:30 PM EST Narrative 03/13/2025 5:16 PM EST [address] [address] Ultrasound Report Signed Patient: Lakisha Hearn MR#: [id number] : 1965 Acct:[id number] Age/Sex: 59 / F ADM Date: 03/13/25 Loc: HO.US Attending Dr: Jimmy Boo MD Ordering Physician: Jimmy Boo MD Date of Service: 03/13/25 Procedure(s): US soft tiss head and/or neck Accession Number(s): [id number] cc: Jimmy Boo MD Reason for Exam: LOCALIZED SWELLING EXAMINATION: ULTRASOUND OF THE SOFT TISSUES OF THE RIGHT HAND CLINICAL INFORMATION: LOCALIZED SWELLING. COMPARISON: Radiographs of the right hand on December 19, 2024 FINDINGS: Targeted ultrasound was performed at the location of the concern in the right hand, at the base of the thumb (see chief radiologic technologist's worksheet scanned into PACS). The palpable concern appears to correlate with a area that continues with the proximal aspect of the first metacarpal, probably area of degenerative changes at the level of the first carpometacarpal joint, associated with a small joint effusion. No abnormal local vascularity with color Doppler evaluation. Superficial soft tissues appear unremarkable. US/US soft tiss head and/or neck IMPRESSION: Area of clinical concern at the base of the thumb appears to correlate with degenerative changes at the first carpometacarpal joint. If clinical concern persists, recommend MRI. Electronically signed by: Ann Brown MD 03/13/2025 05:13 PM [facility] Dictated By: Ann Brown MD Signed By: <Electronically signed by Ann Brown MD in OV> 03/13/25 1713 DD/ 1630 TD/TT: 03/13/25 1645 Letter Carrier: Procedure Note Donotuseinterpreter, Image - 03/13/[address] [address] Ultrasound Report Signed Patient: Lakisha Hearn [facility]#: [id number] : 1965Acct:[id number] Age/Sex: 59 / FADM Date: 03/13/25 Loc: HO.US Attending Dr: Jimmy Boo MD Ordering Physician: Jimmy Boo MD Date of Service: 03/13/25 Procedure(s): US soft tiss head and/or neck Accession Number(s): [id number] cc: Jimmy Boo MD Reason for Exam: LOCALIZED SWELLING EXAMINATION: ULTRASOUND OF THE SOFT TISSUES OF THE RIGHT HAND CLINICAL INFORMATION: LOCALIZED SWELLING. COMPARISON: Radiographs of the right hand on December 19, 2024 FINDINGS: Targeted ultrasound was performed at the location of the concern in the right hand, at the base of the thumb (see chief radiologic technologist's worksheet scanned into PACS). The palpable concern appears to correlate with a area that continues with the proximal aspect of the first metacarpal, probably area of degenerative changes at the level of the first carpometacarpal joint, associated with a small joint effusion. No abnormal local vascularity with color Doppler evaluation. Superficial soft tissues appear unremarkable. US/US soft tiss head and/or neck IMPRESSION: Area of clinical concern at the base of the thumb appears to correlate with degenerative changes at the first carpometacarpal joint. If clinical concern persists, recommend MRI. Electronically signed by: Ann Brown MD 03/13/2025 05:13 PM EST RP Dictated By: Ann Brown MD Signed By: <Electronically signed by Ann Brown MD in OV> 03/13/25 1713 DD/ 1630 TD/TT: 03/13/25 1645 Letter Carrier: us Jimmy Boo MD IMG US PROCEDURES Final Res ult documented in this encounter Visit Diagnoses Not on filedocumented in this encounter Additional Health Concerns Assessment Noted Time PHQ-9 Depression Total Score: 8 06/05/19 25 2:12 PM EST documented as of this encounter Care Teams Auto Apprentice Mechanic Relationship Specialty Start Date End Date Jimmy Boo MD [address] [place] [address] PCP - General Internal Medicine 05/03/13 documented as of this encounter
--- OUTSIDE RECORDS SUMMARY | 2025-03-14 00:50 | XMS_ITS | Encounter Summary ---
Author Organization [employer] Address [address] [place] [address] 7 [place] [address] Care Team Providers Care Director Biomedical Engineering Name Role Phone Jimmy Boo MD Primary Care Provider [phone] Reason for Visit * Reason Comments Med Refill Encounter Details Date Type Department Care Team ([facility] Contact Info) Description 06/23/2022 Refill [facility] MED & PEDS [address] [place] [address] Jimmy Boo MD [address] [place] [address] Primary insomnia Social History Tobacco Use Types [facility] Description 04/01/2025 2:15 PM EST Office Visit [facility] ADULT DENTAL [address] [place] [address] Raza Boo documented as of this encounter Visit Diagnoses Diagnosis Primary insomnia Persistent disorder of initiating or maintaining sleep documented in this encounter Care Teams Director Biomedical Engineering Relationship Specialty Start Date End Date Jimmy Boo MD [address] [place] [address] PCP - General Internal Medicine 05/03/13 documented as of this encounter
--- OUTSIDE RECORDS SUMMARY | 2025-03-14 00:50 | XMS_ITS | Encounter Summary ---
Author Organization [employer] [facility] Address [address] [place] [address] [address] [place] [address] Care Team Providers Care Malariologist Name Role Phone Jimmy Boo MD Primary Care Provider [phone] Reason for Visit * Reason Onset Date Comments rct appt 02/17/2023 Encounter Details Date Type Department Care Team ([facility] Contact Info) Description 02/17/2023 Telephone [facility] [address] [place] [address] Tricia Davis DDS rct appt Social History [...] Upcoming Encounters Date Type Department Care Team ([facility] Contact Info) Description 04/01/2025 2:15 PM EST Office Visit [facility] [address] [place] [address] Raza Boo documented as of this encounter Visit Diagnoses Not on filedocumented in this encounter Care Teams Malariologist Relationship Specialty Start Date End Date Jimmy Boo MD [address] [place] [id number] PCP - General Internal Medicine 05/03/13 documented as of this encounter
--- OUTSIDE RECORDS SUMMARY | 2025-03-14 00:50 | XMS_ITS | Clinical Summary ---
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 06/24/19 21 Active sodium chloride (Otterbein) 0.65 % nasal spray Administer 2 sprays [...] 24 Active Sodium Fluoride 1.1 % cream Flushing teeth for 2 minutes, morning and night. [...] Encounters Date Type Department Care Team Description 03/13/2025 Orders Only [facility] MED & PEDS [address] [place] [address] Jimmy Boo MD 02/25/2025 Orders Only [facility] External Provider, [facility] 02/19/2025 Refill [facility] MED & PEDS [address] [place], [place] [phone] Brandee Fong RN Primary insomnia 02/19/[address] [phone] Jimmy Boo MD Med Refill 02/12/2025 Orders Only GENERIC EXTERNAL DATA DEPARTMENT Provider, Generic External Data 02/11/2025 Orders Only [facility] MED & PEDS [address], [place] [phone] Ynes Hernandez MD 02/05/2025 Orders Only GENERIC EXTERNAL DATA DEPARTMENT Provider, Generic External Data 01/25/2025 Refill [facility] MED & PEDS [address], [place] [phone] Jimmy Boo MD Primary insomnia 01/11/2025 Orders Only GENERIC EXTERNAL DATA DEPARTMENT Provider, Generic External Data 01/10/2025 Telephone [facility] MED & PEDS [address], [place] [phone] Jimmy Boo MD Nurse Triage 01/01/2025 Results Follow-Up [address] [phone] Subha Kellogg, YVONNE US Pelvis Limited 12/31/2024 Orders Only [facility] MED & PEDS [address], [place] [phone] Jimmy Boo MD Subcutaneous nodule (Primary Dx); Chronic pain of right thumb 12/28/2024 Orders Only [facility] MED & PEDS [address], [place] [phone] Jimmy Boo MD 12/24/2024 Telephone [facility] ADULT DENTAL [address] [place] [address] Luis Guzman DDS scripted toothpaste 12/24/2024 Refill [facility] MEDICINE [address] [place] [address] Jimmy Boo MD Primary insomnia 12/19/2024 9:00 AM EDT Office Visit [facility] MED & PEDS [address] [place] [address] Jimmy Boo MD Right hand pain (Primary Dx); Subcutaneous nodule 12/19/2024 Travel from Last 3 Months Immunizations Immunization Administration [facility] [address] [place] [address] Raza Boo Health Maintenance Due Date Last [...] SOFT TISSUE Routine 03/13/2025 4:30 PM EST MR PELVIS W AND WO CONTRAST Routine [...] Recently Relevant to Health Maintenance Results * US Head Neck Soft Tissue (03/13/2025 4:30 PM EST) Anatomical Region Laterality Modality Head, Neck Ultrasound 03/13/2025 4:30 PM EST Narrative 03/13/2025 5:16 PM EST [place] [address] Ultrasound Report Signed Patient: Lakisha Hearn MR#: [id number] : 1965 Acct:[id number] Age/Sex: 59 / F ADM Date: 03/13/25 Loc: HO.US Attending Dr: Jimmy Boo MD Ordering Physician: Jimmy Boo MD Date of Service: 03/13/25 Procedure(s): US soft tiss head and/or neck Accession Number(s): [id number] cc: Jimmy Boo MD Reason for Exam: LOCALIZED SWELLING EXAMINATION: ULTRASOUND OF THE SOFT TISSUES OF THE RIGHT HAND CLINICAL INFORMATION: LOCALIZED SWELLING. COMPARISON: Radiographs of the right hand on December 19, 2024 FINDINGS: Targeted ultrasound was performed at the location of the concern in the right hand, at the base of the thumb (see charge histotechnologist's worksheet scanned into PACS). The palpable concern [...] by: Ann Brown MD 03/13/2025 05:13 PM [facility] Dictated By: Ann Brown MD Signed By: <Electronically signed by Ann Brown MD in OV> 03/13/25 1713 DD/ 1630 TD/TT: 03/13/25 1645 Bag Loader: Procedure Note Donotuseinterpreter, Image - 03/13/2025 [place] [address] Ultrasound Report Signed Patient: Lakisha Hearn AMR#: [id number] : 1965Acct:[id number] Age/Sex: 59 / FADM Date: 03/13/25 Loc: HO.US Attending Dr: Jimmy Boo MD Ordering Physician: Jimmy Boo MD Date of Service: 03/13/25 Procedure(s): US soft tiss head and/or neck Accession Number(s): [id number] cc: Jimmy Boo MD Reason for Exam: LOCALIZED SWELLING EXAMINATION: ULTRASOUND OF THE SOFT TISSUES OF THE RIGHT HAND CLINICAL INFORMATION: LOCALIZED SWELLING. COMPARISON: Radiographs of the right hand on December 19, 2024 FINDINGS: Targeted ultrasound was performed at the location of the concern in the right hand, at the base of the thumb (see charge histotechnologist's worksheet scanned into PACS). The palpable concern [...] 03/13/25 1713 DD/ 1630 TD/TT: 03/13/25 1645 Bag Loader: us Jimmy Boo MD IMG US PROCEDURES Final Res ult * MR Pelvis w/ and w/o Contrast (02/25/2025 9:33 AM EST) Anatomical Region Laterality Modality Body, Pelvis Magnetic Resonan ce 02/25/2025 9:33 AM EST Narrative 02/25/2025 10:43 AM EST [place] [address] Magnetic Resonance Report Signed with Addenda Patient: Lakisha Hearn MR#: [id number] : 1965 Acct:[id number] Age/Sex: 59 / F ADM Date: 02/25/25 Loc: .MRI Attending Dr: Zack Gray MD Ordering Physician: Zack Gray MD Date of Service: 02/25/25 Procedure(s): MR pelvis wo/w con Accession Number(s): [id number] cc: Jimmy Boo MD; Zack Gray MD Reason for Exam: R10.2 - Pelvic and perineal pain ADDENDUM ADDENDUM #1 Correlation is made with an ultrasound of the right labia dated 12/28/2024. No discrete abnormality is seen in this region on MRI. Electronically signed by: Keyshawn Alcantar MD 03/07/2025 12:07 PM EST RP Addendum Dictated By: Keyshawn Alcantar MD Addendum Signed By: <Electronically signed by Keyshawn Alcantar MD in OV> 03/07/25 1207 Addendum Cosigned By: DD/ TD/TT: 02/25/25 EXAMINATION: MR PELVIS WITHOUT THEN WITH IV [...] Alcantar MD in OV> 02/25/25 1040 DD/ 2 TD/TT: 02/25/251009 Bag Loader: Procedure Note Donotuseinterpreter, Image - 03/07/2025 [place] [address] Magnetic Resonance Report Signed with Addenda Patient: Lakisha Hearn [facility]#: [id number] : 1965Acct:[id number] Age/Sex: 59 / FADM Date: 02/25/25 Loc: HO.MRI Attending Dr: Zack Gray MD Ordering Physician: Zack Gray MD Date of Service: 02/25/25 Procedure(s): MR pelvis wo/w con Accession Number(s): [id number] cc: Jimmy Boo MD; Zack Gray MD Reason for Exam: R10.2 - Pelvic and perineal pain ADDENDUM ADDENDUM #1 Correlation is made with an ultrasound of the right labia dated 12/28/2024. No discrete abnormality is seen in this region on MRI. Electronically signed by: Keyshawn Alcantar MD 03/07/2025 12:07 PM [facility] Addendum Dictated By: Keyshawn Alcantar MD Addendum Signed By: <Electronically signed by MD Rakel in OV> 03/07/25 1207 Addendum Cosigned By: DD/ TD/TT: 02/25/25 EXAMINATION: MR PELVIS WITHOUT THEN WITH IV [...] 02/25/25 1040 DD/ 0933 TD/TT: 02/25/25 1010 Bag Loader: [facility] External Provider IMG MRI PROCEDURES Edited Result - Final * Hematoxylin and Eosin Stain (02/12/2025 12:27 PM EST) 02/12/2025 12:2 7 PM EST 02/13/2025 11:35 AM EST [facility] - 02/15/2025 2:10 PM EST ----- ------- Name: Lakisha Hearn Age/Sex: 59/F : 1965 Unit#: [id number] Attend Dr: Zack Gray MD Re02/12/25 Status: DEP REF Location: HO.LNP Disch: ----- ------- SPEC : [id number] RECD: 02/13/25 STATUS: KENNETH MACKAY NUM: [id number] ANDREAS: 02/12/25-[address] [facility] [address]: Zack Gray MD ENTERED: 02/13/25 SP TYPE: Surgical OTHR DR: Jimmy Boo [...] soft tissue fragments, totally submitted in C1. (RJD) Special studies ordered and performed: Immunostains for p16 and Ki-67 on A, B and C CONTINUED ON NEXT PAGE ----- ------- Name: Lakisha Hearn Age/Sex: 59/F : 1965 Unit#: [id number] Attend Dr: Zack Gray MD Re02/12/25 Status: DEP REF Location: HO.LNP Disch: ----- ------- SPEC : [id number] RECD: 02/13/25 STATUS: KENNETH MACKAY NUM: [id number] ANDREAS: 02/12/[address]: Zack Gray MD ENTERED: 02/13/25 SP TYPE: Surgical OTHR DR: Jimmy Boo MD ORDERED: HE Stain/8, Gross Micro L4/3, IHC/3, Add. immunos/3, Ki-67/3, p16/3 IHC S/NG Disclaimer NOTE: Unless otherwise stated, all tissue is formalin-fixed and paraffin-embedded. Some or all of the immunohistochemical tests reported herein may have been developed and their performance characteristics determined by [facility]. They have not been cleared or approved by the U.S. Food and Drug Administration (FDA). However, the FDA has determined that such clearance or approval is not necessary. This laboratory is certified under the Clinical Laboratory Improvement Amendments of 1988 (CLIA) as qualified to perform high complexity clinical laboratory testing. Copies To: Jimmy Boo MD [address] [phone] Zack Gray MD [facility] [address] [place] [address] Drive [address] [place] [address] ----- ------- Signed (signature on file) Samuel Summers MD 02/15/25 1410 ----- ------- END OF REPORT Generic External Data Provider LAB BLOOD ORDERAB LES Final Result [facility] [address] [place] [phone] * MR Thoracic Spine w/ and w/o Contrast (02/06/2025 8:47 AM EST) Anatomical Region Laterality Modality Spine, T-spine Magnetic Resonan ce Historical Provider MD ÁLVAREZ MRI PROCEDURES Final Result * MR Cervical Spine w/ and w/o Contrast (02/06/2025 8:45 AM EST) Anatomical Region Laterality Modality Spine, C-spine Magnetic Resonan ce Historical Provider MD ÁLVAREZ MRI PROCEDURES Final Result * Pap Smear (02/05/2025 9:13 AM EST) 02/05/2025 9:13 AM EST 02/06/2025 6:18 AM EST Narrative [facility] - 02/08/2025 3:26 PM EST ----- ------- Name: Lakisha Hearn Age/Sex: 59/F : 1965 Unit#: [id number] Attend Dr: Zack Gray MD Re02/05/25 Status: [facility] REF Location: [facility] Disch: ----- ------- SPEC : [id number] RECD: 02/06/25 STATUS: KENNETH MACKAY NUM: [id number] ANDREAS: 02/05/[address] [facility] [address]: Zack [...] and HPV testing will be performed at [facility] (CLIA #[id number]), [address] [place] [address]. Testing for HPV was performed using the [...] detected. All professional services are performed by [facility] ([address] [place] [address], [place] [address]; ; CLIA #[id number]). The PAP Test is a screening procedure with the inherent possibility of both false negative and false positive results. Results should be interpreted in the context of historic and current clinical findings. Reliability of the PAP Test is enhanced by performing the test on a regular repetitive basis. CONTINUED ON NEXT PAGE ----- ------- Name: Lakisha Hearn Age/Sex: 59/F : 1965 Unit#: [id number] Attend Dr: Zack Gray MD Re02/05/25 Status: [facility] Location: [facility] Disch: ----- ------- SPEC : [id number] RECD: 02/06/25 STATUS: KENNETH MCAKAY NUM: [id number] ANDREAS: 02/05/[address] [facility] [address]: Zack Gray MD ENTERED: 02/06/25 SP TYPE: Pap Smr OTHR DR: Jimmy Boo MD ORDERED: Pap Smear Copies To: Jimmy Boo MD [address] [phone] Zack Gray MD [facility] [address] [place] [address] Drive [address] [place] [phone] ----- ------- Signed (signature on file) Nyla SALLY Solis ([facility]) 02/08/25 1526 ----- ------- END OF REPORT us Generic External Data Provider LAB CYTOLOGY LUCIA MISHRA Final Result [facility] [address] [place] [phone] * Chlamydia/Trichomonas/Neisseria gonorrhoeae, PCR, Urine (02/05/2025 8:45 AM EST) CT PCR, Urine NOT DETECTED Not Detect. [facility] Comment:A not detected test result [...] NG PCR, Urine NOT DETECTED Not Detect. [facility] Comment:A not detected test result [...] Provider LAB URINE ORDERAB LES Final Result [facility] [address] [place] [phone] * (ABNORMAL) HPV DNA, Low/High Risk (02/05/2025 12:00 AM EST) HPV High Risk Negative Negative [facility] HPV Genotype 16 Positive(A) Negative [facility] HPV Genotype 18 Negative Negative [facility] Comment:HPV testing performe d at [facility] (CLIA#[id number]), [address] [place] [address].Testing for HPV was performed using the Tre [...] Provider LAB BLOOD ORDERAB LES Final Result [facility] [address] [place] [phone] * CT Abdomen Pelvis w/o Contrast (01/11/2025 4:00 PM EDT) Anatomical Region Laterality Modality Body, Pelvis, Abdomen Computed T omography 01/11/2025 4:00 PM EDT Narrative 01/11/2025 5:10 PM EDT [address] [address] [address] Scan Report Signed Patient: Lakisha Hearn MR#: [id number] : 1965 Acct:[id number] Age/Sex: 59 / F ADM Date: 01/11/25 Loc: HO.ED Attending Dr: Ordering Physician: Ghada Chen Date of Service: 01/11/25 Procedure(s): CT abdomen pelvis wo IV con Accession Number(s): [id number] cc: Jimmy Boo MD; Ghada Chen Report Number: [id number]: Total DLP = 330.00 mGy-cm Reason for [...] 01/11/25 1707 DD/ 1600 TD/TT: 01/11/25 1607 Bag Loader: DREW Procedure Note Donotuseinterpreter, Image - 01/11/[address] [address] [address] Scan Report Signed Patient: Lakisha Hearn [facility]#: [id number] : 1965Acct:[id number] Age/Sex: 59 / FADM Date: 01/11/25 Loc: .ED Attending Dr: Ordering Physician: Ghada Chen Date of Service: 01/11/25 Procedure(s): CT abdomen pelvis wo IV con Accession Number(s): [id number] cc: Jimmy Boo MD; Ghada Chen Report Number: [id number]: Total DLP = 330.00 mGy-cm Reason for [...] 01/11/25 1707 DD/ 1600 TD/TT: 01/11/25 1607 Bag Loader: DREW [facility] External Provider IMG CT PROCEDURES Final Result * Urinalysis w/reflex microscopic (01/11/2025 1:55 PM EDT) Color Urine Yellow [facility] Appearance Urine Clear [facility] PH 5.5 5.0 - 9.0 [facility] Glucose Urine UA Negative Negative mg/dL [facility] Urine Blood Negative Negative [facility] Specific [place] - Urine 1.020 1.005 - 1.025 [facility] Urine Protein Negative Neg-Trace mg/dL [facility] Urine Ketones Trace Negative mg/dL [facility] Nitrite Urine Negative Negative [facility] Leukocyte Esterase Urine Negative Negative [facility] 01/11/2025 1:55 PM EDT 01/11/2025 2:00 PM EDT Narrative [facility] - 01/11/2025 2:07 PM EDT [id number], Clean Catch Generic External Data Provider LAB URINE ORDERAB LES Final Result [facility] [address] [place], [place] [phone] * (ABNORMAL) CBC auto differential (01/11/2025 1:42 PM EDT) White Blood Count 5.6 4.8 - 10.8 X10*3/uL [facility] Red Blood Count 4.71 4.20 - 5.50 X10*6/uL [facility] Hemoglobin 14.7 12.0 - 16.0 g/dl [facility] Hematocrit 43.6 37.0 - 47.0 % [facility] Mean Corpuscular Volume 92.6 80.0 - 98.0 fL [facility] Mean Corpuscular Hemoglobin 31.2 27.0 - 33.0 pg [facility] Mean Corpuscular HGB Conc 33.7 31.0 - 35.0 g/dl [facility] Red Cell Distribution Width 12.4 11.0 - 16.0 % [facility] Platelet Count 213 160 - 400 X10*3/uL [facility] Mean Platelet Volume 9.1(L) 9.4 - 12.3 fL [facility] Neutrophils Percent Auto 69.6 45 - 73 % [facility] Imm Gran Pct Auto 0.2 0.0 - 0.4 % [facility] Lymphocytes Percent Auto 19.4(L) 20 - 40 % [facility] Monocytes Percent Auto 9.2 2 - 11 % [facility] Eosinophils Percent Auto 1.1 0 - 4 % [facility] Basophils Percent Auto 0.5 0 - 2 % [facility] NRBC Pct Auto 0.0 0.0 - 0.2 /100WBC [facility] Neutrophils Absolute Auto 3.9 2.0 - 8.3 x10*3/uL [facility] Imm Gran Abs Auto 0.01 0.00 - 0.03 X10*3/uL [facility] Lymphocytes Absolute Auto 1.1(L) 1.2 - 4.9 X10*3/uL [facility] Monocytes Absolute Auto 0.5 0.1 - 1.2 X10*3/uL [facility] Eosinophils Absolute Auto 0.1 0.0 - 0.4 X10*3/uL [facility] Basophils Absolute Auto 0.0 0.0 - 0.2 X10*3/uL [facility] NRBC Abs Auto 0.000 0.0 - 0.012 X10*3/uL [facility] 01/11/2025 1:42 PM EDT 01/11/2025 1:45 PM EDT us Generic External Data Provider LAB BLOOD ORDERAB LES Final Result Performing Organization Address [facility] Co de Phone Number [facility] [address] [place] [phone] * hCG, Total, Quantitative (01/11/2025 1:42 PM EDT) HCG Quantitative <2 mIU/mL [facility] Comment:Weeks post LMP Appro ximate hCG(Last Menstrual Period) Range (mIU/ml)3 - 4 weeks 9 - 1304 - 5 weeks 75 - 2,6005 - 6 weeks 850 - 20,8006 - 7 weeks 4000 - 100,2007 - 12 weeks 11,500 - 289,94302 - 16 weeks 18,300 - 137,53054 - 29 weeks (2nd trimester) 1,400 - 53,38378 - 41 weeks (3rd trimester) 940 - [...] ORDERAB LES Final Result Performing Organization Address [facility] Co de Phone Number [facility] [address] [place] [address] [phone] * Magnesium (01/11/2025 1:42 PM EDT) Magnesium 2.1 1.6 - 2.6 mg/dL [facility] 01/11/2025 1:42 PM EDT 01/11/2025 1:45 PM EDT Generic External Data Provider LAB BLOOD ORDERAB LES Final Result Performing Organization Address [facility]/ZIP Co de Phone Number [facility] [address] [place] [phone] * Lipase (01/11/2025 1:42 PM EDT) Pathologist [facility] Lipase 24 8 - 78 U/L [facility] 01/11/2025 1:42 PM EDT 01/11/2025 1:45 PM EDT Generic External Data Provider LAB BLOOD ORDERAB LES Final Result Performing Organization Address [facility] Co de Phone Number [facility] [address] [place] [phone] * Hepatic Function Panel (01/11/2025 1:42 PM EDT) Pathologist [facility] Bilirubin, Total 0.5 0.0 - 1.0 mg/dL [facility] Bilirubin, Direct 0.2 0.0 - 0.5 mg/dL [facility] Aspartate Amino Transferase 20 5 - 31 U/L [facility] Alanine Aminotransferase 14 0 - 31 U/L [facility] Total Protein 7.0 6.5 - 8.0 g/dL [facility] Albumin Level 4.6 3.5 - 5.0 g/dL [facility] Alkaline Phosphatase 78 39 - 117 U/L [facility] 01/11/2025 1:42 PM EDT 01/11/2025 1:45 PM EDT Generic External Data Provider LAB BLOOD ORDERAB LES Final Result Performing Organization Address [facility] Co de Phone Number [facility] [address] [place] [phone] * (ABNORMAL) Basic Metabolic Panel (01/11/2025 1:42 PM EDT) Pathologist [facility] Sodium 140 135 - 145 mmol/L [facility] Potassium 4.4 3.3 - 5.1 mmol/L [facility] Chloride 105 96 - 108 mmol/L [facility] Carbon Dioxide 29 22 - 29 mmol/L [facility] Anion Gap 10(L) 12 - 20 [facility] Urea Nitrogen (BUN) 12 9 - 16 mg/dL [facility] Creatinine, Serum 0.66 0.5 - 1.4 mg/dL [facility] Creatinine Clr Calc Pharmacy 68.9 [facility] Comment:Provided height and weight: 165.1 cm,47.536 kg.eGFR (calculated from the MDRD study equation) and eCrCl(calculated from the Cockcroft-Gault equation) are based ondifferent parameters and may not yield comparable results.If eCrCl result is absurd, please check patient'sheight/weight. Estimated Glomerular Filt Rate >60 [facility] Comment:Chronic Kidney Disea se: Estimated GFR < 60 mL/min/1.19n7Djjumb Kidney Disease: Estimated GFR < 15 mL/min/1.73m2 Glucose 91 60 - 115 mg/dL [facility] Calcium 9.7 8.4 - 10.2 mg/dL [facility] 01/11/2025 1:42 PM EDT 01/11/2025 1:45 PM EDT us Generic External Data Provider LAB BLOOD ORDERAB LES Final Result Performing Organization Address City/State/[facility] Co de Phone Number [facility] [address] [place] [phone] * US Pelvis Limited (12/29/2024 3:49 PM EDT) Anatomical Region Laterality Modality Pelvis Ultrasound 12/29/2024 3:49 PM EDT Narrative 12/29/2024 3:50 PM EDT [address] [address] Ultrasound Report Signed Patient: Lakisha Hearn MR#: [id number] : 1965 Acct:[id number] Age/Sex: 59 / F ADM Date: 12/28/24 Loc: HO.US Attending Dr: Jimmy Boo MD Ordering Physician: Jimmy Boo MD Date of Service: 12/28/24 Procedure(s): US pelvic limited Accession Number(s): [id number] cc: Jimmy Boo MD Reason for Exam: [...] 12/29/24 1550 DD/ 1549 TD/TT: 12/29/24 1549 Bag Loader: Procedure Note Donotuseinterpreter, Image - 12/29/2024 [place] [address] Ultrasound Report Signed Patient: Lakisha Hearn [facility]#: [id number] : 1965Acct:[id number] Age/Sex: 59 / FADM Date: 12/28/24 Loc: HO.US Attending Dr: Jimmy Boo MD Ordering Physician: Jimmy Boo MD Date of Service: 12/28/24 Procedure(s): US pelvic limited Accession Number(s): [id number] cc: Jimmy Boo MD Reason for Exam: [...] 12/29/24 1550 DD/ 1549 TD/TT: 12/29/24 154 Bag Loader: us Jimmy Boo MD IMG US PROCEDURES Edited Re sult - Final * XR Hand 3+ Views Right (12/19/2024 10:14 AM EDT) Anatomical Region Laterality Modality Upper Extremities, Hand Right [facility] 12/19/2024 10:1 4 AM EDT Narrative 12/19/2024 10:24 AM EDT [place] [address] XRay Report Signed Patient: Lakisha Hearn MR#: [id number] : 1965 Acct:[id number] Age/Sex: 59 / F ADM Date: 12/19/24 Loc: HO.KING Attending Dr: Jimmy Boo MD Ordering Physician: Jimmy Boo MD Date of Service: 12/19/24 Procedure(s): XR hand RT min 3V Accession Number(s): [id number] cc: Jimmy Boo MD Reason for Exam: [...] 12/19/24 1021 DD/ 1014 TD/TT: 12/19/24 1017 Bag Loader: Procedure Note Donotuseinterpreter, Image - 12/19/2024 [place] [address] XRay Report Signed Patient: Lakisha Hearn AMR#: [id number] : 1965Acct:[id number] Age/Sex: 59 / FADM Date: 12/19/24 Loc: HO.XRAY Attending Dr: Jimmy Boo MD Ordering Physician: Jimmy Boo MD Date of Service: 12/19/24 Procedure(s): XR hand RT min 3V Accession Number(s): [id number] cc: Jimmy Boo MD Reason for Exam: [...] 12/19/24 1021 DD/ 1014 TD/TT: 12/19/24 1017 Bag Loader: us Jimmy Boo MD IMG XR PROCEDURES Edited Re sult - Final * Hm Mammography (01/27/2023) Mammogram negative Anatomical Region Laterality Modality Other Narrative 01/27/2023 Bi rads -negative us Jimmy Boo MD [employer] Final Re sult * Hepatitis C Antibody Reflex (11/09/2022 1:51 PM EDT) Pathologist [facility] Hepatitis C Antibody Nonreactive Nonreactive [facility] Comment:Antibodies to HCV no t detected; does not exclude early acuteHCV infection. 11/09/2022 1:51 PM EDT 11/09/2022 5:49 PM EDT us Venecia Butcher [facility] LAB BLOOD ORDERABLES Rach l Result [facility] [address] [place] [phone] * HIV Ab/Ag ([facility]) (11/09/2022 1:51 PM EDT) Pathologist [facility] HIV AB/AG Nonreactive Nonreactive [facility] Comment:HIV-1 p24 Ag and/or HIV-1/HIV-2 Ab not detected.A test result that is nonreactive does not exclude thepossibility of exposure to or infection with HIV-1 and/orHIV-2. Nonreactive results in this assay for individualswith prior exposure to HIV-1 and/or HIV-2 may be due toantigen and antibody levels that are below the limit ofdetection of this assay.[employer] Field Technician HIV Ag/Ab Combo assay result andsupplemental assay results should be interpreted inconjunction with the patient's clinical presentation,history and other laboratory results. If the results areinconsistent with clinical evidence, additional testing issuggested to confirm the result. 11/09/2022 1:51 PM EDT 11/09/2022 5:49 PM EDT us Venecia Bucther CNM LAB BLOOD ORDERABLES Rach l Result [facility] [address] [place] [address] [phone] * Colonoscopy (06/04/2022) Colonoscopy Normal Normal 06/04/2022 Narrative Jacey Pedro - 06/04/2022 2:23 PM EST Recommended 5 year follow up due to family hx of cancer ( see scanned report ) us Historical Provider HEALTH MAINTENANCE Final Result from Last 3 Months or Most Recently Relevant to Health Maintenance Insurance [employer] < 65 [place] [id number] [facility] Care Teams Coal Bagger Relationship Specialty Start Date End Date Jimmy Boo MD [address] [place] [phone] PCP - General Internal Medicine 05/03/13
== END 2025-03-13 16:11 ==
LOC: HO.US 16:10
PROVIDERS: PCP Internal Medicine; Visit Provider Internal Medicine
DX: M79.644 Pain in right finger(s) (principal); R22.9 Localized swelling, mass and lump, unspecified
CPT/HCPCS: 76536

== ENCOUNTER → 2025-03-13 16:30 | Outpatient (BNV) | payer OTHER, SELFPAY | PROVIDERS: PCP Internal Medicine; Visit Provider Radiology Body Imaging | DX: R22.31 Localized swelling, mass and lump, right upper limb (principal) | CPT/HCPCS: 76536 ==